=== PATIENT | male | born 1965 | race Caucasian/White ===

== ENCOUNTER 2019-12-18 13:44 | Inpatient (IN) | payer BC, SELFPAY ==
--- NOTE | ~2019-12-18 | MR_ITS ---
EXAMINATION: MR foot RT wo con DATE: 12/22/2019 15:24 INDICATION: Right foot abscess. TECHNIQUE: Magnetic resonance imaging (MRI) of the right foot was performed without intravenous contr ast. Sequences included sagittal T1-weighted FSE and STIR FSE, long-axis PD-weighted FS FSE and PD-we ighted FSE, and short-axis PD-weighted FS FSE and T1-weighted FSE. COMPARISON: Right foot MRI 11/09/2017, radiographs 12/18/2019, 12/21/2019, 11/08/2017 FINDINGS: Bone alignment is normal. No fracture. There is mild midfoot osteoarthritis. Lisfranc ligam ent is normal. There is severe fatty atrophy of much of the forefoot musculature. There is increased T2-weighted signal intensity in the forefoot musculature, consistent with subacute denervation and my ositis. There is widespread subcutaneous edema in the foot. There are surgical changes of the plantar lateral soft tissues. There is artifact from a foreign body in the great toe. IMPRESSION: 1. No evidence of osteomyelitis. 2. Surgical changes at the plantar lateral aspect of the forefoot. No specific evidence of abscess. S ensitivity is decreased by the lack of intravenous contrast. 3. Thin curvilinear foreign body in the soft tissues of the great toe, present since 11/08/2017. Reviewed, dictated and finalized at location A. IMPRESSION: 1. No evidence of osteomyelitis. 2. Surgical changes at the plantar lateral aspect of the forefoot. No specific evidence of abscess. Sensitivity is decreased by the lack of intravenous contra st. 3. Thin curvilinear foreign body in the soft tissues of the great toe, present since 11/08/2017.
--- NOTE | ~2019-12-18 | XR_ITS ---
EXAMINATION: XR fluoroscopy <1hr EXAM DATE: 12/21/2019 12:04 INDICATION: Removal of foreign body right foot. TECHNIQUE: Fluoroscopy used during XR fluoroscopy <1hr performed by Dr. Sonido Raymundo MD. The DA P for this procedure was 0.3 mGym2. Correlation made to right foot x-ray from 12/18/2019 FINDINGS: There is a single lateral fluoroscopic image available of the right forefoot likely superi mposed on the left ankle. No radiopaque foreign bodies identified. Correlate with procedure note. IMPRESSION: Fluoroscopy used during right foot foreign body removal. Reviewed, dictated and finalized at location A.
--- NOTE | ~2019-12-18 | US_ITS ---
EXAMINATION: US venous doppler [facility] DATE: 12/18/2019 14:49 INDICATION: Left lower limb pain. TECHNIQUE: Grayscale ultrasound images without and with compression and Doppler ultrasound images of the left lower extremity veins were obtained. COMPARISON: None. FINDINGS: The visualized portions of left common femoral vein, profunda (deep) femoral vein, femoral vein, popl iteal vein, peroneal veins, posterior tibial veins, and greater saphenous vein outflow are patent. IMPRESSION: 1. No deep venous thrombosis. Reviewed, dictated and finalized at location A.
--- NOTE | ~2019-12-18 | XR_ITS ---
XR foot RT min 3V 12/18/2019 14:26 Indication: Right foot pain Procedure: 4 views right foot Comparison: 11/08/2017 Findings: There is a curvilinear foreign body in the soft tissues adjacent to the fourth and fifth me tatarsal phalangeal joints. Mild osteoarthritis of the first MTP joint. Lisfranc joint intact. There are degenerative calcaneal enthesophytes. Impression: 1: Curvilinear foreign body adjacent to the fourth and fifth metatarsal phalangeal joints, new since prior examination. Reviewed, dictated and finalized at location B. Impression: 1: Curvilinear foreign body adjacent to the fourth and fifth metatarsal phalang eal joints, new since prior examination.
[2019-12-18 13:54] VITALS: BP 134/76; PULSE 87; RESP 18; TEMP 36.9; O2SAT 100
[2019-12-18 14:21] LABS: Basophils Percent Auto 0.4 % (0.2-1.2); Eosinophils Absolute Auto 0.1 K/mm3 (0-0.3); Hemoglobin 13.7 g/dL (14.0-18.0); Immature Granulocyte Absolute 0.02 K/mm3 (0.00-0.031); Immature Granulocyte Percent A 0.2 % (0-0.5); Lymphocytes Percent Auto 13.6 % (18.3-44.2); Mean Corpuscular HGB Conc 33.4 g/dl (32-36); Mean Corpuscular Hemoglobin 29.7 pg (26-34); Mean Corpuscular Volume 88.7 fl (80-100); Mean Platelet Volume 9.4 fl (7.4-10.4); Monocytes Absolute Auto 0.7 K/mm3 (0.1-0.6); Monocytes Percent Auto 8.8 % (2.6-8.5); Neutrophils Absolute Auto 6.1 K/mm3 (1.3-6.7); Platelet Count Result 203 k/mm3 (150-375); Red Blood Count 4.62 M/mm3 (4.6-6.20); Red Cell Distribution Width 12.9 % (11.5-14.5); White Blood Count 8.1 K/mm3 (4.5-10.0)
[2019-12-18 14:30] LABS: Prothrombin Time 13.1 Seconds (11.1-14.7)
[2019-12-18 14:31] LABS: Glucose Point of Care 342 (65-105)
[2019-12-18 14:31] LABS: Partial Thromboplastin Time 33.1 SECONDS (22.3-36.8)
[2019-12-18 14:33] LABS: Lactic Acid Reflex 2.1 mmol/L (0.7-2.1)
[2019-12-18 14:41] LABS: Magnesium 1.8 mg/dL (1.6-2.3)
[2019-12-18 14:43] LABS: Alanine Aminotransferase 19 U/L (4-50); Albumin Level 3.8 g/dL (3.5-5.1); Alkaline Phosphatase 123 U/L (38-126); Aspartate Amino Transferase 19 U/L (17-59); Bilirubin,Total 0.2 mg/dL (0.2-1.3); Blood Urea Nitrogen 16 mg/dL (9-20); Calcium 9.1 mg/dL (8.4-10.2); Carbon Dioxide 28 mmol/L (22-30); Chloride 95 mmol/L (98-107); Estimated CRCL calculation 126 ml/min; Estimated Glomerular Filt Rate > 60; Glucose 399 mg/dL (75-110); Potassium 4.2 mmol/L (3.4-5.0); Sodium 132 mmol/L (137-145)
[2019-12-18 14:45] LABS: Erythrocyte Sedimentation Rate 96 mm/hr (0-20)
--- NOTE | 2019-12-18 15:01 | ED.GENADULT ---
HPI - General Adult General Chief complaint: Wound/Laceration <SASHA Kunz Last Filed: 12/18/19 17:50> Stated complaint: foot ulcer <SASHA Kunz Last Filed: 12/18/19 17:50> Time Seen by Provider: 12/18/19 13:46 <SASHA Kunz Last Filed: 12/18/19 17:50> Source: patient <SASHA Kunz Last Filed: 12/18/19 17:50> Mode of arrival: ambulatory <SASHA Kunz Last Filed: 12/18/19 17:50> Limitations: no limitations <SASHA Kunz Last Filed: 12/18/19 17:50> History of Present Illness HPI narrative: patient is a 54-year-old male who presents to emergency department for evaluation of bilateral leg pain that is worsened over the last several days patient notes redness swelling and tenderness of the right forefoot laterally patient also notes he has had some splotchy irritation involving the left leg from the foot up to the level of the knee patient notes he is an insulin-dependent diabetic and is poorly controlled and was sent by primary care for further evaluation patient notes subjective fever with chills patient denies vomiting diarrhea URI symptoms or urinary symptoms patient has not taken anything for his symptoms and presents in no distress patient also notes history of tobacco abuse <SASHA Kunz Last Filed: 12/18/19 17:50> Related Data Home medications: Home Medications Medication Instructions Recorded Confirmed atorvastatin 12/18/19 citalopram mg 12/18/19 insulin lispro [Admelog SoloStar unit SUBCUT 12/18/19 U-100 Insulin] linagliptin [Tradjenta] mg 12/18/19 pen needle, diabetic [BD 12/18/19 12/18/19 Ultra-Fine Diane Pen Needle] <SASHA Kunz Last Filed: 12/18/19 17:50> Allergies/adverse reactions: Allergies Allergy/AdvReac Type Severity Reaction Status Date / Time No Known Allergies Allergy Verified 12/18/19 13:59 <SASHA Kunz Last Filed: 12/18/19 17:50> Review of Systems Review of Systems: All systems reviewed & are unremarkable except as noted in HPI and below <Ramon Hi PA-C - Last Filed: 12/18/19 17:50> FOR[facility]LY [facility] Past Medical History Medical History: Medical History (Updated 12/18/19 @ 15:45 by Ramon Hi PA-C) Diabetes mellitus <Ramon Hi PA-C - Last Filed: 12/18/19 17:50> Family History Family History: Family History (Updated 11/25/17 @ 10:00 by DOCTOR UNKNOWN) Other Diabetes mellitus Family history of malignant neoplasm <Ramon Hi PA-C - Last Filed: 12/18/19 17:50> Social History Social History: Social History (Updated 12/18/19 @ 15:04 by Ramon Hi PA-C) Smoking status: Current every day smoker Alcohol intake: current Substance use type: amphetamines Gender identity (if verbalized by the patient): Male <Ramon Hi PA-C - Last Filed: 12/18/19 17:50> Exam Narrative: Exam Narrative: GENERAL: Well-appearing, well-nourished, and in no acute distress. HEAD: Normocephalic, atraumatic. EYES: PERRLA and EOMI. ENT: Nares clear, no rhinorrhea or epistaxis. Mucous membranes moist. CHEST: Clear to auscultation. No respiratory distress. No wheezes rales or rhonchi HEART: Regular rate and rhythm. No murmur heard. Normal peripheral pulses. ABDOMEN: Soft, nontender, nondistended EXTREMITIES: Normal range of motion. No edema. Patient with redness tenderness around the forefoot of the right foot where he has erythema and what appears like a blister on the plantar surface with no ulceration. Patient with splotchy redness involving the left calf and medial aspect of the left knee SKIN: Warm, dry, no rash. NEURO: No focal deficits. Alert and oriented x3. Neurovascularly intact PSYCH: Normal mood and affect. <Ramon Hi PA-C - Last Filed: 12/18/19 17:50> Course Course Emergency Course: Patient in the room aware of case findings treatment
[2019-12-18 15:02] LABS: CRP 22.8 mg/dL (<1.0)
[2019-12-18 15:04] LABS: Add Urine Microscopic? YES; Appearance Urine Clear (Clear); Bilirubin Urine Negative (Negative); Blood Urine Negative (Negative); Color Urine Yellow (Yellow); Glucose Urine UA 3+ mg/dL (Negative); Ketones Urine Negative (Negative); Leukocyte Esterase Ur Negative LEU/UL (Negative); Nitrate Urine Negative (Negative); Protein Urine 1+ mg/dL (Negative); RBC Urine 0-2 /hpf (0-2); Specific Grav Ur 1.031 (1.001-1.035); Urobilinogen Urine Negative mg/dL (<2.0); WBC Urine 0-3 /hpf
[2019-12-18 15:08] LABS: Beta-Hydroxybutyrate/Acetoacetate 0.06 mmol/L (0.02-0.27)
[2019-12-18] MEDS: KETOROLAC 30 MG/ML VIAL (*BKC) IV PUSH (15:08)
[2019-12-18] MEDS: SODIUM CHLORIDE 0.9% IV 1,000 ML 999 ML IV CONT (15:08)
[2019-12-18] MEDS: INSULIN HUMAN REGULAR (*BKC) 100 UNITS/ML 10 UNITS IV PUSH (15:09)
[2019-12-18 15:17] LABS: Barbiturate Screen Urine Negative (Negative); Benzodiazepines Screen Urine Negative (Negative)
[2019-12-18 15:24] LABS: Cannabinoid Screen Urine Positive (Negative); Cocaine Screen Urine Negative (Negative); Methadone Screen Urine Negative (Negative); Opiate Screen Urine Negative (Negative); Phencyclidine Screen Urine Negative (Negative)
--- NOTE | 2019-12-18 15:37 | PC.NURSE ---
Patient asking for water, MD reports patient not allowed to have yet d/t FB in foot at this time
[2019-12-18 15:51] LABS: Amphetamine Screen Urine Positive (Negative)
[2019-12-18 17:18] LABS: Reflex Lactic Acid Yes or No Add Lactic
[2019-12-18 17:42] VITALS: BP 101/65; PULSE 74; RESP 20; O2SAT 100
[2019-12-18 19:07] VITALS: PULSE 89
--- NOTE | 2019-12-18 19:25 | ADMGEN ---
This patient, Bob Webster, was admitted to Medical Room 349-01. Patient/family oriented to hospital policies and general routines including ID bracelet, bed and alarms, visiting hours, pain management, procedures, bathroom and other care routines, personal items, smoking policy, room service/diet, and visiting hours. Valuables list has been completed. Information on how to activate the Rapid Response Team has been discussed. Patient/Family are encouraged to report perceived risks to care and to ask questions if they do not understand what they are told or what they should do.
--- NOTE | 2019-12-18 19:56 | PM.IMHP ---
H&P: HPI History of Present Illness Chief complaint: Foreign body right foot/cellulitis r foot/left leg Narrative: This is a 54 year old male with known peripheral neuropathy, poorly controlled diabetes mellitus and chronic diabetic foot ulcers who presented to the hospital today with a complaint of right foot redness and swelling for the past 3 days. The patient is known to have a chronic diabetic wound on the bottom of his left foot but denies any signficant wound of his right foot. He admits that he was previously walking around outside without shoes and doesn't feel his feet secondary to his peripheral neuropathy. He also has some redness of his left lower leg which he states comes and goes. He denies any fevers, chills, shortness of breath, chest pain, abdominal pain, nausea, vomting, diarrhea, dysuria, or other symptoms. He does have a follow up appointment with is podaitrist for December 22, 2019 and has not had any type of antibiotic therapy for his right foot redness/swelling over the past few days. Routine labs were obtained in the ER and were viturally unremarkalble. The patient is nontoxic appearing with normal vital signs. Doppler U/S of his Left LE was negative for an acute DVT. Foot xray obtained in the ER demonstrated a curvilinear foreign body adjacent to the fourth and fifth metatarsal phalangeal joints, new since prior examination. ER provider has consulted General Surgery, Dr. Raymundo who has agreed to see the patient for his foreign body. No other complaints. Review of Systems Review of Systems: All systems reviewed & are unremarkable except as noted in HPI and below PMFSH Past Medical History Medical History Diabetes mellitus Surgical History Surgical History Hx of colonoscopy Family History Family History Other Diabetes mellitus Family history of malignant neoplasm Social History Social History Years smoked: 42 Smoking status: Current every day smoker Tobacco type: cigarettes Alcohol intake: current Drinks per week: 3 Substance use: current Substance use type: marijuana and methamphetamine Gender identity (if verbalized by the patient): Male Sexual Orientation (if Verbalized by the Patient): Straight or Heterosexual Spiritual care concerns: No Meds Home Medications and Allergies Home Medications Medication Instructions Recorded Confirmed Type insulin glargine [Basaglar KwikPen 10 unit SUBCUT QAM 12/18/19 12/18/19 History U-100 Insulin] insulin glargine [Basaglar KwikPen 15 unit SUBCUT QPM 12/18/19 12/18/19 History U-100 Insulin] insulin lispro [Admelog SoloStar 4 unit SUBCUT AC 12/18/19 12/18/19 History U-100 Insulin] insulin lispro [Admelog SoloStar See Protocol SUBCUT ACHS 12/18/19 12/18/19 History U-100 Insulin] linagliptin [Tradjenta] 5 mg PO DAILY 12/18/19 12/18/19 History pen needle, diabetic [BD 12/18/19 12/18/19 History Ultra-Fine Diane Pen Needle] Allergies Allergy/AdvReac Type Severity Reaction Status Date / Time No Known Allergies Allergy Verified 12/18/19 20:49 Vital Signs Vital Signs - 24 hr 12/18/19 13:54 12/18/19 17:42 12/18/19 19:07 Temperature 36.9 C Pulse Rate 87 74 89 Respiratory Rate 18 20 Blood Pressure 134/76 101/65 Pulse Oximetry 100 100 Exam Const: General: cooperative, no acute distress, alert and awake Nutritional Appearance: well nourished Orientation/consciousness: patient oriented x3 HENMT: Head: normal to inspection General nose exam: Normal external nose present Face and sinus: normal facial exam Mouth: Yes Normal oral and palatal mucosa present and Yes oropharynx normal Eyes: Pupils: Equal, round and reactive pupils present EOM: EOMs intact bilaterally Neck: Neck: supple a
[2019-12-18 20:13] VITALS: BP 104/63; PULSE 77; RESP 16; TEMP 36.2; O2SAT 100
[2019-12-18 20:15] VITALS: BMI 31.3
[2019-12-18] MEDS: LACTATED RINGERS 1,000 ML 125 ML IV CONT (20:45)
[2019-12-18] MEDS: FAMOTIDINE 20 MG/2 ML VIAL IV PUSH (20:46)
[2019-12-18] MEDS: NICOTINE (*PBKC) 14 MG PATCH 1 PATCH TRANSDERM (20:46)
[2019-12-18 22:07] LABS: Glucose Point of Care 218 (65-105)
[2019-12-19 04:42] VITALS: BP 126/65; PULSE 79; RESP 14; TEMP 36.6; O2SAT 99
[2019-12-19] MEDS: LACTATED RINGERS 1,000 ML 125 ML IV CONT (04:42)
[2019-12-19 06:06] LABS: Basophils Percent Auto 0.4 % (0.2-1.2); Eosinophils Absolute Auto 0.1 K/mm3 (0-0.3); Eosinophils Percent Auto 1.8 % (0-4.4); Hemoglobin 13.5 g/dL (14.0-18.0); Immature Granulocyte Absolute 0.04 K/mm3 (0.00-0.031); Immature Granulocyte Percent A 0.5 % (0-0.5); Lymphocytes Absolute Auto 1.53 K/mm3 (0.9-3.2); Lymphocytes Percent Auto 19.4 % (18.3-44.2); Mean Corpuscular HGB Conc 33.8 g/dl (32-36); Mean Corpuscular Hemoglobin 29.9 pg (26-34); Mean Corpuscular Volume 88.7 fl (80-100); Monocytes Absolute Auto 0.6 K/mm3 (0.1-0.6); Monocytes Percent Auto 8.1 % (2.6-8.5); Neutrophils Absolute Auto 5.5 K/mm3 (1.3-6.7); Neutrophils Percent Auto 69.8 % (45.5-73.1); Platelet Count Result 193 k/mm3 (150-375); Red Blood Count 4.51 M/mm3 (4.6-6.20); Red Cell Distribution Width 12.7 % (11.5-14.5); White Blood Count 7.9 K/mm3 (4.5-10.0)
[2019-12-19 06:26] LABS: Blood Urea Nitrogen 17 mg/dL (9-20); Calcium 8.9 mg/dL (8.4-10.2); Carbon Dioxide 28 mmol/L (22-30); Chloride 99 mmol/L (98-107); Estimated CRCL calculation 124 ml/min; Estimated Glomerular Filt Rate > 60; Glucose 218 mg/dL (75-110); Potassium 4.1 mmol/L (3.4-5.0); Sodium 133 mmol/L (137-145)
[2019-12-19 08:06] LABS: Glucose Point of Care 200 (65-105)
[2019-12-19] MEDS: ENOXAPARIN 40 MG/0.4 ML SYRINGE SUB-Q (09:30)
[2019-12-19] MEDS: FAMOTIDINE 20 MG/2 ML VIAL IV PUSH ×2 (09:30→21:14)
[2019-12-19] MEDS: INSULIN GLARGINE (*BKC) 100 UNITS/ML 10 UNITS SUB-Q (09:31)
[2019-12-19] MEDS: NICOTINE (*PBKC) 14 MG PATCH 1 PATCH TRANSDERM (09:31)
--- NOTE | 2019-12-19 09:40 | PM.CNGS ---
Assessment and Plan Assessment and plan (1) Diabetic infection of right foot: Code(s): E11.628 - Type 2 diabetes mellitus with other skin complications; L08.9 - Local infection of the skin and subcutaneous tissue, unspecified Status: Acute Assessment and Plan: infection improving with antibiotics. Continue present care. (2) Foreign body in foot: Qualifiers: Encounter type: initial encounter Laterality: right Qualified Code(s): S90.851A - Superficial foreign body, right foot, initial encounter Code(s): S90.859A - Superficial foreign body, unspecified foot, initial encounter Status: Acute Assessment and Plan: Will take patient to surgery Saturday or Saturday to remove foreign body under fluoroscopy. If ready to be discharged before that, he can be brought back as an outpatient for the procedure. (3) Poorly controlled diabetes mellitus: Code(s): E11.65 - Type 2 diabetes mellitus with hyperglycemia Status: Chronic (4) Tobacco dependence: Code(s): F17.200 - Nicotine dependence, unspecified, uncomplicated Status: Chronic (5) Amphetamine abuse: Code(s): F15.10 - Other stimulant abuse, uncomplicated Status: Chronic History of Present Illness Consult details Consult date: 12/19/19 Reason for consult: other ( Diabetic foot infection with foreign body) Narrative: patient is a 54-year-old man who is diabetic with peripheral neuropathy. He started noticing swelling in the distal right foot particularly laterally. This started about 4 days ago. He has not had any fever or chills. He came to the emergency room. Plain film showed a curvilinear foreign body between the 4th and 5th metatarsal joints. There was no sign of osteomyelitis. He was admitted and started on IV antibiotics. His foot seems to be less swollen to him today. He feels better as well. He is seen now in consultation. Review of Systems Review of Systems: All systems reviewed & are unremarkable except as noted in HPI and below Constitutional: Constitutional: Denies headache(s) Cardiovascular: Cardiovascular: Denies chest pain and Denies dyspnea Respiratory: Respiratory: Denies cough and Denies dyspnea Gastrointestinal: Gastrointestinal: Reports as per HPI Neurologic: Denies confusion and Denies headache(s) [facility] Past Medical History Medical History Diabetes mellitus Surgical History Surgical History Hx of colonoscopy Family History Family History Other Diabetes mellitus Family history of malignant neoplasm Social History Social History Years smoked: 42 Smoking status: Current every day smoker Tobacco type: cigarettes Alcohol intake: current Drinks per week: 3 Substance use: current Substance use type: marijuana and methamphetamine Gender identity (if verbalized by the patient): Male Sexual Orientation (if Verbalized by the Patient): Straight or Heterosexual Spiritual care concerns: No Meds Home Medications and Allergies Home Medications Medication Instructions Recorded Confirmed Type insulin glargine [Basaglar KwikPen 10 unit SUBCUT QAM 12/18/19 12/18/19 History U-100 Insulin] insulin glargine [Basaglar KwikPen 15 unit SUBCUT QPM 12/18/19 12/18/19 History U-100 Insulin] insulin lispro [Admelog SoloStar 4 unit SUBCUT AC 12/18/19 12/18/19 History U-100 Insulin] insulin lispro [Admelog SoloStar See Protocol SUBCUT ACHS 12/18/19 12/18/19 History U-100 Insulin] linagliptin [Tradjenta] 5 mg PO DAILY 12/18/19 12/18/19 History pen needle, diabetic [BD 12/18/19 12/18/19 History Ultra-Fine Diane Pen Needle] Allergies Allergy/AdvReac Type Severity Reaction Status Date / Time No Known Allergies Allergy
[2019-12-19] MEDS: INSULIN ASPART (*BKC) 100 UNITS/ML SUB-Q ×3 (11:31→16:49)
[2019-12-19 11:40] LABS: Glucose Point of Care 227 (65-105)
--- NOTE | 2019-12-19 12:59 | PM.IMPN ---
Progress Note: A&P Assessment and Plan (1) Cellulitis of foot, right: Code(s): L03.115 - Cellulitis of right lower limb Status: Acute Assessment and Plan: Admit for observation. Continue IV antibiotics. Blood cultures pending. (2) Foreign body in foot: Qualifiers: Encounter type: initial encounter Laterality: right Qualified Code(s): S90.851A - Superficial foreign body, right foot, initial encounter Code(s): S90.859A - Superficial foreign body, unspecified foot, initial encounter Status: Acute Assessment and Plan: General surgery has seen and plans to take to the OR early next week (3) Diabetic ulcer of left foot: Qualifiers: Diabetic foot ulcer location: midfoot Diabetes mellitus type: type 2 Non-pressure ulcer stage: limited to breakdown of skin Qualified Code(s): E11.621 - Type 2 diabetes mellitus with foot ulcer; L97.421 - Non-pressure chronic ulcer of left heel and midfoot limited to breakdown of skin Code(s): E11.621 - Type 2 diabetes mellitus with foot ulcer; L97.529 - Non-pressure chronic ulcer of other part of left foot with unspecified severity Status: Chronic Assessment and Plan: Continue local wound care. Left foot is essentially all healed (4) Poorly controlled diabetes mellitus: Code(s): E11.65 - Type 2 diabetes mellitus with hyperglycemia Status: Chronic Assessment and Plan: Accuchecks, with sliding scale. Check HgbA1c. Increase Lantus if needed or a.c. insulin (5) Amphetamine abuse: Code(s): F15.10 - Other stimulant abuse, uncomplicated Status: Chronic (6) Tobacco dependence: Code(s): F17.200 - Nicotine dependence, unspecified, uncomplicated Status: Chronic Assessment and Plan: I counseled the patient regarding tobacco cessation for 4 minutes. He does desire a nicotine patch. Subjective Date/time seen: 12/19/19 12:59 Interval history: Date of visit 12/18. 54-year-old type 2 diabetic on insulin with severe peripheral neuropathy admitted with swollen right foot. Found to have infection and foreign body between 4th and 5th metatarsal on x-ray. After 12 hours of antibiotics and the swelling is already better. No fever no chills Exam Narrative: Exam Narrative: Blood pressure 126/64 pulse is 78 afebrile Pupils equal reactive to light sclera anicteric Lungs clear CV regular rate rhythm Abdomen soft nontender no masses Extremities without distal pulses 2+, left foot there is a healed scar on the plantar surface just the 4th and 5th MTP. Right foot is slightly swollen with no entrance wounds or abrasions or open lesions. Nontender with the neuropathy. Objective Data Vital Signs Vital Signs: Vital Signs - 24 hr 12/18/19 13:54 12/18/19 17:42 12/18/19 19:07 Temperature 36.9 C Pulse Rate 87 74 89 Respiratory Rate 18 20 Blood Pressure 134/76 101/65 Pulse Oximetry 100 100 12/18/19 20:13 12/19/19 04:42 Temperature 36.2 C L 36.6 C Pulse Rate 77 79 Respiratory Rate 16 14 Blood Pressure 104/63 126/65 Pulse Oximetry 100 99 Intake/Output Intake/Output: Intake & Output 12/16/19 12/17/19 12/18/19 12/19/19 23:59 23:59 23:59 23:59 Intake Total 1300 2030 Output Total 1275 Balance 1300 755 Meds/Results Medications: Active Medications Generic Name Dose Route Start Last Admin Trade Name Freq PRN Reason Stop Dose Admin Enoxaparin Sodium 40 mg 12/19/19 09:00 12/19/19 09:30 Lovenox SUB-Q 40 mg DAILY LINO Administration Famotidine 20 mg 12/18/19 21:00 12/19/19 09:30 Pepcid Iv IV PUSH 20 mg Q12HR LINO Administration Imipenem/Cilastatin Sodium 500 mg in 100 mls @ 300 mls/hr 12/18/19 22:00 12/19/19 09:47 Primaxin 500 Mg/D5w 100 Ml IVPB Infused Q6H LINO Infusion Acetaminophen 1,000 mg in 100 mls @ 400 mls/hr 12/18/19 17:51 12/19/19 11:31 Ofirmev 1,000 Mg Ivpb IVPB 12/19/19 17:52 400 mls/hr Q6H PRN Administra
[2019-12-19 14:00] VITALS: BP 128/66; PULSE 71; RESP 20; TEMP 37.2; O2SAT 98
[2019-12-19 16:26] LABS: Glucose Point of Care 204 (65-105)
[2019-12-19] MEDS: INSULIN GLARGINE (*BKC) 100 UNITS/ML 15 UNITS SUB-Q (18:22)
[2019-12-19 18:27] LABS: Glucose Point of Care 209 (65-105)
[2019-12-19 21:16] VITALS: BP 135/78; PULSE 84; RESP 14; TEMP 37.1; O2SAT 97
[2019-12-19 21:43] LABS: Glucose Point of Care 215 (65-105)
[2019-12-20 05:06] VITALS: BP 149/78; PULSE 80; RESP 14; TEMP 37; O2SAT 100
[2019-12-20 07:55] LABS: Glucose Point of Care 235 (65-105)
[2019-12-20] MEDS: INSULIN GLARGINE (*BKC) 100 UNITS/ML 10 UNITS SUB-Q (08:23)
[2019-12-20] MEDS: NICOTINE (*PBKC) 14 MG PATCH 1 PATCH TRANSDERM (08:23)
[2019-12-20] MEDS: FAMOTIDINE 20 MG/2 ML VIAL IV PUSH ×2 (08:23→20:59)
[2019-12-20] MEDS: INSULIN ASPART (*BKC) 100 UNITS/ML SUB-Q ×5 (08:24→17:05)
[2019-12-20 11:25] LABS: Glucose Point of Care 176 (65-105)
[2019-12-20 14:00] VITALS: BP 140/72; PULSE 75; RESP 20; TEMP 36.8; O2SAT 100
--- NOTE | 2019-12-20 15:46 | PM.IMPN ---
Progress Note: A&P Assessment and Plan (1) Cellulitis of foot, right: Code(s): L03.115 - Cellulitis of right lower limb Status: Acute Assessment and Plan: Continue IV antibiotics. Blood cultures negative. (2) Foreign body in foot: Qualifiers: Encounter type: initial encounter Laterality: right Qualified Code(s): S90.851A - Superficial foreign body, right foot, initial encounter Code(s): S90.859A - Superficial foreign body, unspecified foot, initial encounter Status: Acute Assessment and Plan: General surgery has seen and plans to take to the OR early next week (3) Diabetic ulcer of left foot: Qualifiers: Diabetic foot ulcer location: midfoot Diabetes mellitus type: type 2 Non-pressure ulcer stage: limited to breakdown of skin Qualified Code(s): E11.621 - Type 2 diabetes mellitus with foot ulcer; L97.421 - Non-pressure chronic ulcer of left heel and midfoot limited to breakdown of skin Code(s): E11.621 - Type 2 diabetes mellitus with foot ulcer; L97.529 - Non-pressure chronic ulcer of other part of left foot with unspecified severity Status: Chronic Assessment and Plan: Continue local wound care. Left foot is essentially all healed (4) Poorly controlled diabetes mellitus: Code(s): E11.65 - Type 2 diabetes mellitus with hyperglycemia Status: Chronic Assessment and Plan: Accuchecks, with sliding scale. Check HgbA1c. Increase Lantus if needed and scheduled a.c. insulin 4U with SS (5) Amphetamine abuse: Code(s): F15.10 - Other stimulant abuse, uncomplicated Status: Chronic Assessment and Plan: counciled on admission (6) Tobacco dependence: Code(s): F17.200 - Nicotine dependence, unspecified, uncomplicated Status: Chronic Assessment and Plan: Dr Pinedo counseled the patient regarding tobacco cessation for 4 minutes. He does desire a nicotine patch. Subjective Date/time seen: 12/20/19 15:46 Interval history: Date of visit 12/19. 54-year-old type 2 diabetic on insulin with severe peripheral neuropathy admitted with swollen right foot. Found to have infection and foreign body between 4th and 5th metatarsal on x-ray. After antibiotics and the swelling is better. No fever no chills no pain with neuropathy Exam Narrative: Exam Narrative: Blood pressure 146/78 pulse is 80 afebrile Pupils equal reactive to light sclera anicteric Lungs clear CV regular rate rhythm Abdomen soft nontender no masses Extremities without distal pulses 2+, left foot there is a healed scar on the plantar surface just the 4th and 5th MTP. Right foot is slightly swollen with no entrance wounds or abrasions or open lesions. Nontender with the neuropathy Somewhat fluculant on the plantar surface twin 4th and 5th metatarsal. Objective Data Vital Signs Vital Signs: Vital Signs - 24 hr 12/19/19 21:16 12/20/19 05:06 Temperature 37.1 C 37.0 C Pulse Rate 84 80 Respiratory Rate 14 14 Blood Pressure 135/78 149/78 H Pulse Oximetry 97 100 Intake/Output Intake/Output: Intake & Output 12/17/19 12/18/19 12/19/19 12/20/19 23:59 23:59 23:59 23:59 Intake Total 1300 4225 1080 Output Total 2975 Balance 1300 1250 1080 Meds/Results Medications: Active Medications Generic Name Dose Route Start Last Admin Trade Name Freq PRN Reason Stop Dose Admin Dextrose 12.5 gm 12/19/19 13:13 Dextrose 50% Syringe IV PUSH PRN PRN Hypoglycemia Protocol Enoxaparin Sodium 40 mg 12/19/19 09:00 12/20/19 08:21 Lovenox SUB-Q Not Given DAILY LINO Famotidine 20 mg 12/18/19 21:00 12/20/19 08:23 Pepcid Iv IV PUSH 20 mg Q12HR LINO Administration Glucagon 1 mg 12/19/19 13:13 Glucagon For Inj IM PRN PRN Hypoglycemia Protocol Glucose 15 gm 12/19/19 13:13 Glutose 15 PO PRN PRN Hypoglycemia Protocol Imipenem/Cilastatin Sodium 500 mg in 100 m
--- NOTE | 2019-12-20 15:47 | P.PNAN_ITS ---
Anes - Eval Pre Procedure Procedure: Removal of foreign body right foot Date/Time: 12/20/19 15:47 Surgeon: Sonido Raymundo M.D. Pre Op Diagnosis: Foreign body right foot/cellulitis r foot/left leg Patient Data Age: 54 Gender: M Height: 1.88 m Weight: 110.6 kg Last Vital Signs Temp 37.0 C 12/20/19 05:06 Pulse 80 12/20/19 05:06 Resp 14 12/20/19 05:06 BP 149/78 H 12/20/19 05:06 Pulse Ox 100 12/20/19 05:06 Allergies Allergy/AdvReac Type Severity Reaction Status Date / Time No Known Allergies Allergy Verified 12/18/19 20:49 Home Medications Medication Instructions Recorded Confirmed Type insulin glargine [Basaglar KwikPen 10 unit SUBCUT QAM 12/18/19 12/18/19 History U-100 Insulin] insulin glargine [Basaglar KwikPen 15 unit SUBCUT QPM 12/18/19 12/18/19 History U-100 Insulin] insulin lispro [Admelog SoloStar 4 unit SUBCUT AC 12/18/19 12/18/19 History U-100 Insulin] insulin lispro [Admelog SoloStar See Protocol SUBCUT ACHS 12/18/19 12/18/19 History U-100 Insulin] linagliptin [Tradjenta] 5 mg PO DAILY 12/18/19 12/18/19 History pen needle, diabetic [BD 12/18/19 12/18/19 History Ultra-Fine Diane Pen Needle] Laboratory Tests 12/19/19 12/19/19 12/19/19 16:22 18:21 21:15 POC Capillary Glucose 204 mg/dl H mg/dl 209 mg/dl H mg/dl 215 mg/dl H mg/dl (65-105) (65-105) (65-105) 12/20/19 12/20/19 07:48 11:23 POC Capillary Glucose 235 mg/dl H mg/dl 176 mg/dl H mg/dl (65-105) (65-105) Patient hx anesthesia problems: none Family hx anesthesia problems: none PMFSH Past Medical History Medical History (Updated 12/20/19 @ 15:51 by Jen Borges, NUCLEAR MEDICINE MEDICAL DIRECTOR) Amphetamine abuse Cellulitis of foot, right Diabetes mellitus Diabetic infection of right foot Diabetic ulcer of left foot Peripheral neuropathy Tobacco dependence Surgical History Surgical History Hx of colonoscopy Family History Family History Other Diabetes mellitus Family history of malignant neoplasm Social History Social History Years smoked: 42 Smoking status: Current every day smoker Tobacco type: cigarettes Alcohol intake: current Drinks per week: 3 Substance use: current Substance use type: marijuana and methamphetamine Gender identity (if verbalized by the patient): Male Sexual Orientation (if Verbalized by the Patient): Straight or Heterosexual Spiritual care concerns: No Exam Day of Procedure 12/20/19 15:47
[2019-12-20 16:33] LABS: Glucose Point of Care 240 (65-105)
[2019-12-20] MEDS: INSULIN GLARGINE (*BKC) 100 UNITS/ML 15 UNITS SUB-Q (17:06)
[2019-12-20 20:11] VITALS: BP 132/78; PULSE 93; RESP 14; TEMP 36.9; O2SAT 100
[2019-12-20 20:36] LABS: Glucose Point of Care 284 (65-105)
[2019-12-21] VITALS (7 sets, daily range): BP systolic 104–122; BP diastolic 62–83; PULSE 75–84; RESP 12–18; TEMP 36.2–37.4; O2SAT 96–100
[2019-12-21 05:51] LABS: Basophils Percent Auto 0.5 % (0.2-1.2); Eosinophils Absolute Auto 0.1 K/mm3 (0-0.3); Eosinophils Percent Auto 1.4 % (0-4.4); Hematocrit 42.6 % (42.0-52.0); Hemoglobin 14.4 g/dL (14.0-18.0); Immature Granulocyte Absolute 0.06 K/mm3 (0.00-0.031); Immature Granulocyte Percent A 0.7 % (0-0.5); Mean Corpuscular HGB Conc 33.8 g/dl (32-36); Mean Corpuscular Hemoglobin 29.7 pg (26-34); Mean Corpuscular Volume 87.8 fl (80-100); Mean Platelet Volume 8.7 fl (7.4-10.4); Monocytes Absolute Auto 0.8 K/mm3 (0.1-0.6); Neutrophils Absolute Auto 5.8 K/mm3 (1.3-6.7); Neutrophils Percent Auto 67.4 % (45.5-73.1); Platelet Count Result 252 k/mm3 (150-375); Red Blood Count 4.85 M/mm3 (4.6-6.20); Red Cell Distribution Width 12.4 % (11.5-14.5); White Blood Count 8.6 K/mm3 (4.5-10.0)
[2019-12-21 06:18] LABS: Blood Urea Nitrogen 15 mg/dL (9-20); Calcium 9.2 mg/dL (8.4-10.2); Carbon Dioxide 32 mmol/L (22-30); Chloride 96 mmol/L (98-107); Estimated CRCL calculation 124 ml/min; Estimated Glomerular Filt Rate > 60; Glucose 198 mg/dL (75-110); Potassium 4.3 mmol/L (3.4-5.0); Sodium 135 mmol/L (137-145)
[2019-12-21 07:01] LABS: Hemoglobin A1C 9.6 % (<5.7)
--- NOTE | 2019-12-21 08:29 | WPDANESEPPF ---
Anes - Initial Pre Proc Eval Procedure: Operation Date: 12/21/19 11:00 Proposed Procedures p REMOVAL RIGHT FOOT FORIEGN BODY UNDER FLOUROSCOPY - Sonido Raymundo MD Date/Time: 12/21/19 08:29 Pre Op Diagnosis: Foreign body right foot/cellulitis r foot/left leg Patient Data Age: 54 Gender: M Height: 1.88 m Weight: 110.6 kg Last Vital Signs Temp 36.5 C 12/21/19 04:21 Pulse 84 12/21/19 04:21 Resp 16 12/21/19 04:21 BP 122/83 12/21/19 04:21 Pulse Ox 100 12/21/19 04:21 Allergies Allergy/AdvReac Type Severity Reaction Status Date / Time No Known Allergies Allergy Verified 12/18/19 20:49 Home Medications Medication Instructions Recorded Confirmed Type insulin glargine [Basaglar KwikPen 10 unit SUBCUT QAM 12/18/19 12/18/19 History U-100 Insulin] insulin glargine [Basaglar KwikPen 15 unit SUBCUT QPM 12/18/19 12/18/19 History U-100 Insulin] insulin lispro [Admelog SoloStar 4 unit SUBCUT AC 12/18/19 12/18/19 History U-100 Insulin] insulin lispro [Admelog SoloStar See Protocol SUBCUT ACHS 12/18/19 12/18/19 History U-100 Insulin] linagliptin [Tradjenta] 5 mg PO DAILY 12/18/19 12/18/19 History pen needle, diabetic [BD 12/18/19 12/18/19 History Ultra-Fine Diane Pen Needle] Laboratory Tests 12/20/19 12/20/19 12/20/19 11:23 16:30 20:01 WBC RBC Hgb Hct MCV MCH MCHC RDW Plt Count MPV Immature Gran % (Auto) Neut % (Auto) Lymph % (Auto) [place] % (Auto) Eos % (Auto) Baso % (Auto) Lymph # (Auto) [place] # (Auto) Eos # (Auto) Baso # (Auto) Abs Immat Gran (auto) Absolute Neuts (auto) Absolute Nucleated RBC Nucleated RBC % Sodium Potassium Chloride Carbon Dioxide BUN Creatinine Estim Creat Clear Calc Estimated GFR Glucose POC Capillary Glucose 176 mg/dl H mg/dl 240 mg/dl H mg/dl 284 mg/dl H mg/dl (65-105) (65-105) (65-105) Hemoglobin A1c Calcium 12/21/19 12/21/19 12/21/19 05:14 05:14 05:14 WBC 8.6 K/mm3 K/mm3 (4.5-10.0) RBC 4.85 M/mm3 M/mm3 (4.6-6.20) Hgb 14.4 g/dL g/dL (14.0-18.0) Hct 42.6 % % (42.0-52.0) MCV 87.8 fl fl (80-100) MCH 29.7 pg pg (26-34) MCHC 33.8 g/dl g/dl (32-36) RDW 12.4 % % (11.5-14.5) Plt Count 252 k/mm3 k/mm3 (150-375) MPV 8.7 fl fl (7.4-10.4) Immature Gran % (Auto) 0.7 % H % (0-0.5) Neut % (Auto) 67.4 % % (45.5-73.1) Lymph % (Auto) 21.0 % % (18.3-44.2) [place] % (Auto) 9.0 % H % (2.6-8.5) Eos % (Auto) 1.4 % % (0-4.4) Baso % (Auto) 0.5 % % (0.2-1.2) Lymph # (Auto) 1.80 K/mm3 K/mm3 (0.9-3.2) [place] # (Auto) 0.8 K/mm3 H K/mm3 (0.1-0.6) Eos # (Auto) 0.1 K/mm3 K/mm3 (0-0.3) Baso # (Auto) 0.0 K/mm3 K/mm3 (0.0-0.1) Abs Immat Gran (auto) 0.06 K/mm3 H K/mm3 (0.00-0.031) Absolute Neuts (auto) 5.8 K/mm3 K/mm3 (1.3-6.7) Absolute Nucleated RBC 0.0 K/mm3 K/mm3 (0.0-0.012) Nucleated RBC % 0.0 % % (0.0-0.2) Sodium 135 mmol/L L mmol/L (137-145) Potassium 4.3 mmol/L mmol/L (3.4-5.0) Chloride 96 mmol/L L mmol/L (98-107) Carbon Dioxide 32 mmol/L H mmol/L (22-30) BUN 15 mg/dL mg/dL (9-20) Creatinine 0.80 mg/dL mg/dL (0.7-1.3) Estim Creat Clear Calc 124 ml/min ml/min Estimated GFR > 60 (59 - ) Glucose 198 mg/dL H mg/dL (75-110) POC Capillary Glucose He
[2019-12-21] MEDS: FAMOTIDINE 20 MG/2 ML VIAL IV PUSH (08:36)
[2019-12-21] MEDS: NICOTINE (*PBKC) 14 MG PATCH 1 PATCH TRANSDERM (08:39)
[2019-12-21] MEDS: INSULIN GLARGINE (*BKC) 100 UNITS/ML 10 UNITS SUB-Q (08:40)
--- NOTE | 2019-12-21 09:30 | PCWOUND ---
WOCN NOTE received referral to see patient for foot wound. General surgeon has seen patient and is following. wound care not needed at this time.
[2019-12-21] MEDS: LACTATED RINGERS 1,000 ML 30 ML IV CONT (09:46)
[2019-12-21 09:49] LABS: Glucose Point of Care 180 (65-105)
[2019-12-21 10:07] LABS: Glucose Point of Care 166 (65-105)
--- NOTE | 2019-12-21 11:59 | P.OP_ITS ---
Procedure Note - Detailed Date of procedure: 12/21/19 Pre-op diagnosis: Foreign body right foot/cellulitis r foot/left leg Diabetic foot infection right foot with foreign body Post-op diagnosis: other (Diabetic foot infection with foreign body and deep plantar abscess) Procedure performed: Excisional debridement skin subcutaneous and muscle 4 sq cm plantar surface right foot, removal foreign body under fluoroscopy Description of procedure: The patient was taken to surgery and induced into general anesthesia. He was placed in left lateral position with the right foot elevated such that the 4th and 5th metatarsal on the plantar surface was exposed. Prep and drape was carried out. Fluoroscopy was used from both a lateral view and an oblique view. The area judged to have the foreign body was marked with an X on the plantar surface of the right foot. There was an obvious abscess. I opened the abscess which was directly under a large callus of skin. Cultures were taken. I went ahead and excise this plantar callus. Underlying this was some necrotic tissue that was skin subcutaneous and muscle. I again used fluoroscopy and located the general area where the foreign body was located. I found a deeper pocket that went between the 4th and 5th metatarsal bones and drained that as well. I excised the overlying skin and subcutaneous over a 2 x 2 cm area. Cautery was used for hemostasis. Necrotic tissue was excised as well. Eventually I was able to remove the foreign body. It was sent to pathology as gross only foreign body. I then used the cautery to again achieve hemostasis. I used gentle pressure as well. I saw no additional pockets or purulent collections. The deeper abscess was packed with 1/2 inch iodoform Nu Gauze. The wound was dressed with fluffs Kerlix roll and 4 in Joel wrap. The patient was placed in a supine position, awakened and extubated. He was taken to recovery in good condition. Anesthesia: GETA Surgeon: Sonido Raymundo MD Sales Assistant Institutional Sales: [place] [employer] Estimated blood loss (mL): 10 Drains: No Packing: Yes (1/2 inch iodoform Nu Gauze) Pathology: yes (Cultures and gross only right foot foreign body) Complications: None Condition: stable Disposition: PACU Findings: Deep plantar abscess with necrotic skin subcutaneous and muscle requiring excisional debridement. Curvilinear foreign body suggestive of a needle or wire. Location is 4th and 5th metatarsal, between the 2.
[2019-12-21] MEDS: INSULIN ASPART (*BKC) 100 UNITS/ML SUB-Q (13:31)
[2019-12-21 14:47] LABS: Glucose Point of Care 197 (65-105)
--- NOTE | 2019-12-21 16:37 | PM.IMPN ---
Progress Note: A&P Assessment and Plan (1) Cellulitis of foot, right: Code(s): L03.115 - Cellulitis of right lower limb Status: Acute Assessment and Plan: Continue IV antibiotics. Blood cultures negative. (2) Foreign body in foot: Qualifiers: Encounter type: initial encounter Laterality: right Qualified Code(s): S90.851A - Superficial foreign body, right foot, initial encounter Code(s): S90.859A - Superficial foreign body, unspecified foot, initial encounter Status: Acute Assessment and Plan: General surgery has seen and to to OR today. Deep abscesses were found with necrotic tissue and for body was removed Continue broad-spectrum antibiotics and await cultures Will get ID opinion about length of need of antibiotics and consider MR to evaluate for possible osteo (3) Diabetic ulcer of left foot: Qualifiers: Diabetic foot ulcer location: midfoot Diabetes mellitus type: type 2 Non-pressure ulcer stage: limited to breakdown of skin Qualified Code(s): E11.621 - Type 2 diabetes mellitus with foot ulcer; L97.421 - Non-pressure chronic ulcer of left heel and midfoot limited to breakdown of skin Code(s): E11.621 - Type 2 diabetes mellitus with foot ulcer; L97.529 - Non-pressure chronic ulcer of other part of left foot with unspecified severity Status: Chronic Assessment and Plan: Continue local wound care. Left foot is essentially all healed (4) Poorly controlled diabetes mellitus: Code(s): E11.65 - Type 2 diabetes mellitus with hyperglycemia Status: Chronic Assessment and Plan: Accuchecks, with sliding scale. HgbA1c 9.6. Increase Lantus and scheduled a.c. insulin 5U with SS (5) Amphetamine abuse: Code(s): F15.10 - Other stimulant abuse, uncomplicated Status: Chronic Assessment and Plan: counciled on admission (6) Tobacco dependence: Code(s): F17.200 - Nicotine dependence, unspecified, uncomplicated Status: Chronic Assessment and Plan: Dr Pinedo counseled the patient regarding tobacco cessation for 4 minutes. He does desire a nicotine patch. Subjective Date/time seen: 12/21/19 16:37 Interval history: Date of visit 12/20. 54-year-old type 2 diabetic on insulin with severe peripheral neuropathy admitted with swollen right foot. Found to have infection and foreign body between 4th and 5th metatarsal on x-ray. After antibiotics and the swelling is better. No fever no chills no pain with neuropathy. To OR today for I and D and removal foreign body Exam Narrative: Exam Narrative: Blood pressure 120/80 pulse is 74 afebrile Pupils equal reactive to light sclera anicteric Lungs clear CV regular rate rhythm Abdomen soft nontender no masses Extremities distal pulses 2+, left foot there is a healed scar on the plantar surface just the 4th and 5th MTP. Right foot is slightly swollen with no entrance wounds or abrasions or open lesions. Nontender with the neuropathy fluctuant on the plantar surface between 4th and 5th metatarsal. Objective Data Vital Signs Vital Signs: Vital Signs - 24 hr 12/20/19 20:11 12/21/19 04:21 12/21/19 09:46 Temperature 36.9 C 36.5 C 37.1 C Pulse Rate 93 84 75 Respiratory Rate 14 16 18 Blood Pressure 132/78 122/83 121/80 Pulse Oximetry 100 100 100 12/21/19 11:56 12/21/19 12:10 12/21/19 12:25 Temperature 37.4 C Pulse Rate 76 84 76 Respiratory Rate 13 16 12 Blood Pressure 104/67 105/73 113/73 Pulse Oximetry 100 100 99 12/21/19 13:25 Temperature 36.2 C L Pulse Rate 76 Respiratory Rate 18 Blood Pressure 105/62 Pulse Oximetry 98 Intake/Output Intake/Output: Intake & Output 12/18/19 12/19/19 12/20/19 12/21/19 23:59 23:59 23:59 23:59 Intake Total 1300 4225 2270 740 Output Total 2975 1600 Balance 1300 1250 670 740 Meds/Results Medications: Active Medications Generic Name Dose Route Start Last Admin Trade Name Freq PRN Reason St
[2019-12-21] MEDS: INSULIN GLARGINE (*BKC) 100 UNITS/ML 20 UNITS SUB-Q (18:02)
[2019-12-21] MEDS: INSULIN ASPART (*BKC) 100 UNITS/ML 20 UNITS SUB-Q (18:03)
[2019-12-21 18:12] LABS: Glucose Point of Care 408 (65-105)
[2019-12-21] MEDS: FAMOTIDINE 20 MG TABLET PO (21:02)
[2019-12-21 21:08] LABS: Glucose Point of Care 193 (65-105)
[2019-12-22 04:22] LABS: Glucose Point of Care 255 (65-105)
[2019-12-22 04:57] VITALS: BP 113/65; PULSE 66; RESP 14; TEMP 36.4; O2SAT 100
[2019-12-22 05:26] LABS: Hematocrit 42.8 % (42.0-52.0); Hemoglobin 14.4 g/dL (14.0-18.0); Mean Corpuscular HGB Conc 33.6 g/dl (32-36); Mean Corpuscular Hemoglobin 29.6 pg (26-34); Mean Corpuscular Volume 88.1 fl (80-100); Mean Platelet Volume 8.9 fl (7.4-10.4); Platelet Count Result 270 k/mm3 (150-375); Red Blood Count 4.86 M/mm3 (4.6-6.20); Red Cell Distribution Width 12.4 % (11.5-14.5); White Blood Count 10.3 K/mm3 (4.5-10.0)
[2019-12-22 05:42] LABS: Blood Urea Nitrogen 20 mg/dL (9-20); Calcium 9.3 mg/dL (8.4-10.2); Carbon Dioxide 31 mmol/L (22-30); Chloride 98 mmol/L (98-107); Estimated CRCL calculation 124 ml/min; Estimated Glomerular Filt Rate > 60; Glucose 259 mg/dL (75-110); Potassium 4.4 mmol/L (3.4-5.0); Sodium 134 mmol/L (137-145)
[2019-12-22 07:59] LABS: Glucose Point of Care 239 (65-105)
[2019-12-22] MEDS: FAMOTIDINE 20 MG TABLET PO ×2 (09:08→21:11)
[2019-12-22] MEDS: NICOTINE (*PBKC) 14 MG PATCH 1 PATCH TRANSDERM (09:10)
[2019-12-22] MEDS: INSULIN GLARGINE (*BKC) 100 UNITS/ML 10 UNITS SUB-Q (09:12)
[2019-12-22] MEDS: INSULIN ASPART (*BKC) 100 UNITS/ML SUB-Q ×5 (09:12→17:34)
--- NOTE | 2019-12-22 11:16 | PM.PNGS ---
Progress Note: A&P Assessment and Plan (1) Abscess of foot without toes, right: Code(s): L02.611 - Cutaneous abscess of right foot Status: Acute Assessment and Plan: necrotic tissue debrided and deep abscess of the right foot his drained. Wound today looks clean. Will ask wound nurses to see regarding dressing change care. (2) Diabetic infection of right foot: Code(s): E11.628 - Type 2 diabetes mellitus with other skin complications; L08.9 - Local infection of the skin and subcutaneous tissue, unspecified Status: Acute Assessment and Plan: Continue IV antibiotics, pending culture results from procedure yesterday. (3) Foreign body in foot: Qualifiers: Encounter type: initial encounter Laterality: right Qualified Code(s): S90.851A - Superficial foreign body, right foot, initial encounter Code(s): S90.859A - Superficial foreign body, unspecified foot, initial encounter Status: Resolved Assessment and Plan: Metallic foreign body, probably a needle, removed yesterday. (4) Poorly controlled diabetes mellitus: Code(s): E11.65 - Type 2 diabetes mellitus with hyperglycemia Status: Chronic Assessment and Plan: Blood sugars still well over 200. Need better control. Subjective Subjective Date/Time Seen: 12/22/19 11:16 Patient reports: no new complaints and afebrile Exam Extrem: Right lower extremity: foot ( Open wound clean and dry, no purulence noted. Deep wound 1st and 2nd met) Objective Data Vital Signs Vital Signs: Vital Signs - 24 hr 12/21/19 11:56 12/21/19 12:10 12/21/19 12:25 Temperature 37.4 C Pulse Rate 76 84 76 Respiratory Rate 13 16 12 Blood Pressure 104/67 105/73 113/73 Pulse Oximetry 100 100 99 12/21/19 13:25 12/21/19 21:57 12/22/19 04:57 Temperature 36.2 C L 36.4 C L 36.4 C Pulse Rate 76 80 66 Respiratory Rate 18 16 14 Blood Pressure 105/62 110/64 113/65 Pulse Oximetry 98 96 100 Intake/Output Intake/Output: Intake & Output 12/19/19 12/20/19 12/21/19 12/22/19 23:59 23:59 23:59 23:59 Intake Total 4225 2270 1420 590 Output Total 2975 1600 650 Balance 1250 670 770 590 Meds/Results Medications: Active Medications Generic Name Dose Route Start Last Admin Trade Name Freq PRN Reason Stop Dose Admin Acetaminophen 500 mg 12/21/19 12:37 Tylenol Tablet PO Q6H PRN Mild Pain (1-3) or Fever Dextrose 12.5 gm 12/19/19 13:13 Dextrose 50% Syringe IV PUSH PRN PRN Hypoglycemia Protocol Enoxaparin Sodium 40 mg 12/19/19 09:00 12/22/19 09:08 Lovenox SUB-Q Not Given DAILY [facility] Famotidine 20 mg 12/21/19 21:00 12/22/19 09:08 Pepcid PO 20 mg Q12HR LINO Administration Glucagon 1 mg 12/19/19 13:13 Glucagon For Inj IM PRN PRN Hypoglycemia Protocol Glucose 15 gm 12/19/19 13:13 Glutose 15 PO PRN PRN Hypoglycemia Protocol Imipenem/Cilastatin Sodium 500 mg in 100 mls @ 300 mls/hr 12/18/19 22:00 12/22/19 09:28 Primaxin 500 Mg/D5w 100 Ml IVPB Infused Q6H LINO Infusion Dextrose 1,000 mls @ 100 mls/hr 12/19/19 13:13 Dextrose 5% 1,000 Ml IVPB PRN PRN Hypoglycemia Protocol Ibuprofen 800 mg in 200 mls @ 400 mls/hr 12/21/19 12:37 Caldolor 800 Mg/200 Ml IVPB Q6H PRN Pain Rated 4-6 Vancomycin HCl 2,000 mg in 500 mls @ 250 mls/hr 12/21/19 18:00 12/22/19 05:32 Vancomycin 2,000 Mg/D5w 500 Ml IVPB Not Given Q12H LINO Insulin Aspart 4 - 8 units 12/19/19 08:00 12/22/19 09:12 Novolog SUB-Q 4 units TIDWM LINO Administration Protocol Insulin Aspart 5 units 12/21/19 17:00 12/22/19 09:13 Novolog SUB-Q 5 units TIDWM LINO Administration Insulin Glargine 10 units 12/19/19 09:00 12/22/19 09:12 Lantus SUB-Q 10 units QAM LINO Administration Insulin Glargine 20 units 12/21/19 18:00 12/21/19 18:02 Lantus SUB-Q 20 units QPM LINO
[2019-12-22 11:41] LABS: Glucose Point of Care 252 (65-105)
[2019-12-22] MEDS: SILVERGEL (ELTA) 45 ML 1 APPLIC TOPICAL (14:22)
[2019-12-22 14:33] VITALS: BP 108/55; PULSE 69; RESP 12; TEMP 36.1; O2SAT 96
--- NOTE | 2019-12-22 15:05 | WPDANESPN ---
Anes - Prog Note Post-Op Date/Time: 12/22/19 15:05 Cardiovascular status: normal Respiratory status: normal Airway patency: baseline Mental status: baseline Post-Op hydration status: normal Vital Signs: Last Vital Signs Temp 36.1 C L 12/22/19 14:33 Pulse 69 12/22/19 14:33 Resp 12 12/22/19 14:33 BP 108/55 L 12/22/19 14:33 Pulse Ox 96 12/22/19 14:33 I/O: Intake & Output 12/21/19 12/22/19 12/22/19 23:59 07:59 15:59 Intake Total 680 250 580 Output Total 650 Balance 30 250 580 Laboratory Tests 12/22/19 05:08 12/22/19 05:08 12/21/19 12/21/19 12/22/19 17:48 21:05 04:19 WBC RBC Hgb Hct MCV MCH MCHC RDW Plt Count MPV Sodium Potassium Chloride Carbon Dioxide BUN Creatinine Estim Creat Clear Calc Estimated GFR Glucose POC Capillary Glucose 408 H 193 H 255 H Calcium 12/22/19 12/22/19 12/22/19 05:08 05:08 07:57 WBC 10.3 H RBC 4.86 Hgb 14.4 Hct 42.8 MCV 88.1 MCH 29.6 MCHC 33.6 RDW 12.4 Plt Count 270 MPV 8.9 Sodium 134 L Potassium 4.4 Chloride 98 Carbon Dioxide 31 H BUN 20 Creatinine 0.80 Estim Creat Clear Calc 124 Estimated GFR > 60 Glucose 259 H POC Capillary Glucose 239 H Calcium 9.3 12/22/19 11:39 WBC RBC Hgb Hct MCV MCH MCHC RDW Plt Count MPV Sodium Potassium Chloride Carbon Dioxide BUN Creatinine Estim Creat Clear Calc Estimated GFR Glucose POC Capillary Glucose 252 H Calcium Microbiology 12/21/19 11:59 Abscess Anaerobic Culture - Preliminary Post-procedural complaints: none Patient Feedback: Patient satisfied with anesthetic care.
--- NOTE | 2019-12-22 15:50 | PM.IMPN ---
Progress Note: A&P Assessment and Plan (1) Cellulitis of foot, right: Code(s): L03.115 - Cellulitis of right lower limb Status: Acute Assessment and Plan: Dressing clean and dry. BCx NGTD. WCx growing GPC. Continue IV antibiotics. (2) Foreign body in foot: Qualifiers: Encounter type: initial encounter Laterality: right Qualified Code(s): S90.851A - Superficial foreign body, right foot, initial encounter Code(s): S90.859A - Superficial foreign body, unspecified foot, initial encounter Status: Resolved Assessment and Plan: Patietn taken to OR on 12/20 (POD #1) and found to have a deep abscesses with necrotic tissue. The FB was removed. BCx NGTD. Wound cx growing GPC. Will continue broad-spectrum antibiotics and await culture results. ID consult to help with duration of treatment. MR to asess for possible osteo. MR not showing any evidence of osteo but does show again a FB in the soft tissue of the Rt great toe. Will discuss with surgery. (3) Diabetic ulcer of left foot: Qualifiers: Diabetic foot ulcer location: midfoot Diabetes mellitus type: type 2 Non-pressure ulcer stage: limited to breakdown of skin Qualified Code(s): E11.621 - Type 2 diabetes mellitus with foot ulcer; L97.421 - Non-pressure chronic ulcer of left heel and midfoot limited to breakdown of skin Code(s): E11.621 - Type 2 diabetes mellitus with foot ulcer; L97.529 - Non-pressure chronic ulcer of other part of left foot with unspecified severity Status: Chronic Assessment and Plan: Continue local wound care. Left foot is essentially all healed (4) Poorly controlled diabetes mellitus: Code(s): E11.65 - Type 2 diabetes mellitus with hyperglycemia Status: Chronic Assessment and Plan: A1c 9.6. Glucose reviewed on 12/21. Glucose still elevated inthe 200's. Continue Accuchecks with sliding scale. Will increase Lantus and scheduled a.c. insulin. (5) Amphetamine abuse: Code(s): F15.10 - Other stimulant abuse, uncomplicated Status: Chronic Assessment and Plan: Patient denies to me that he uses meth. He has been counseled about the benefit of abstaining from drug use. Care coordination to provide information about supportive servies. (6) Tobacco dependence: Code(s): F17.200 - Nicotine dependence, unspecified, uncomplicated Status: Chronic Assessment and Plan: Patient has been counseled about the beneftis of abstaining from tobacco use. Subjective Date/time seen: 12/22/19 15:50 Interval history: 54yo male with DM and severe peripheral neuropathy admitted with swollen right foot and found to have infection and foreign body between 4th and 5th metatarsal on x-ray. To OR for I&D on 12/20. Assuming care. Chart reviewed. Pain controlled. No problems overnight. +BMs. Eating okay. No CP or SOB. Exam Narrative: Exam Narrative: AF 96.9 108/55 69 12 Gen - NARD Chest - CTA bilaterally CV - RRR S1/S2 Abd - soft, NT/ND, +BS Ext - no pedal edema, 2+ DP bilaterally. Neuro - no feeling in the toea bilaterally Skin - right foot/ankle dressing clean and dry Objective Data Vital Signs Vital Signs: Vital Signs - 24 hr 12/21/19 21:57 12/22/19 04:57 12/22/19 14:33 Temperature 97.5 F L 97.6 F 96.9 F L Pulse Rate 80 66 69 Respiratory Rate 16 14 12 Blood Pressure 110/64 113/65 108/55 L Pulse Oximetry 96 100 96 Intake/Output Intake/Output: Intake & Output 12/19/19 12/20/19 12/21/19 12/22/19 23:59 23:59 23:59 23:59 Intake Total 4225 2270 1420 830 Output Total 2975 1600 650 Balance 1250 670 770 830 Meds/Results Medications: Active Medications Generic Name Dose Route Start Last Admin Trade Name Freq PRN Reason Stop Dose Admin Acetaminophen 500 mg 12/21/19 12:37 Tylenol Tablet PO Q6H PRN Mild Pain (1-3) or Fever Dextrose 12.5 gm 12/19/19 13:13 Dextrose 50
[2019-12-22 16:41] LABS: Glucose Point of Care 205 (65-105)
[2019-12-22] MEDS: INSULIN GLARGINE (*BKC) 100 UNITS/ML 20 UNITS SUB-Q (17:33)
[2019-12-22] MEDS: INSULIN ASPART (*BKC) 100 UNITS/ML 8 UNITS SUB-Q (17:34)
--- NOTE | 2019-12-22 17:35 | CONS_ITS ---
DATE OF CONSULTATION: 12/22/2019 REASON FOR CONSULTATION: Osteomyelitis and abscess. HISTORY OF PRESENT ILLNESS: The patient is a 54-year-old male with long-standing diabetes mellitus. He was at [facility] a year ago with diabetic foot infection, left plantar foot apparently due to a foreign body. He had operative intervention and was discharged on vancomycin. This apparently caused renal insufficiency for him, and he was readmitted to the hospital for another 8 days. By the time of discharge, he was sent home on oral antibiotics. He had full resolution after prolonged wound care, but in the last month due to ill-fitting shoes he has redeveloped a callus over the same area, left 4th metatarsal head area. He was admitted to the hospital with right foot symptoms on the , specifically redness and edema of 3 days duration. He knows of no trauma. He does have loss of sensation in the plantar aspect of both feet. Here, he was taken to the operating room yesterday where a foot abscess was found, which extended in the area between the 4th and 5th metatarsal heads, foreign body was removed as well. The wound was packed and left open, and he is now postop. No fever, chills, or sweats. No recent antibiotics, knows of no specific trauma to the right foot. Here he has been given imipenem and vancomycin now day 5. PRESENT MEDICATIONS: No immunosuppressants. ALLERGIES: VANCOMYCIN CAUSED THE RENAL INSUFFICIENCY. NO HYPERSENSITIVITY REACTION. HABITS: He unfortunately continues to smoke 1 pack per day. Also uses alcohol, marijuana, methamphetamine. FAMILY HISTORY: Diabetes, cancer. PAST MEDICAL HISTORY: Peripheral neuropathy as above, hyperlipidemia. REVIEW OF SYSTEMS: Musculoskeletal, skin, constitutional, respiratory, GI otherwise negative. SOCIAL HISTORY: He is . Lives locally. PHYSICAL EXAMINATION: GENERAL: This is a middle-aged male who appears his actual age. No acute distress. VITAL SIGNS: Afebrile since arrival, 113/65, 66, 14. SKIN: No generalized rash. EENT: The conjunctivae are normal. Mucous membranes well hydrated. NECK: No meningismus. LUNGS: Clear to auscultation. CARDIAC: Regular rate and rhythm without murmurs or gallops. Popliteal pulses 2+. ABDOMEN: Nontender, soft. No organomegaly. No bruits. EXTREMITIES: He has callus over the left plantar foot. The right foot has a surgical dressing in place. He has no edema. No proximal streaking. No warmth over and above normal. LABORATORY DATA: Blood cultures no growth so far. Wound culture with gram-positive cocci and moderate white cells on smear. White count was 8.1, today is 10.3; hemoglobin 14.4; platelets of 270. His sodium is 134. His Accu-Cheks in the 200s. A1c 9.6%. CRP 23. Liver function tests normal. UA, no evidence of infection. Drug screen, cannabinoids and amphetamines. RADIOLOGY: Plain films of the foot show foreign body. ASSESSMENT: 1. Right foot abscess after foreign body trauma, probably with osteomyelitis of the 4th and 5th metatarsals. He is postop day #1, drainage. 2. Diabetes mellitus and peripheral neuropathy with hyperglycemia. 3. Polysubstance abuse. RECOMMENDATIONS: 1. Counseled on tobacco cessation. 2. Hold vancomycin given his previous renal insufficiency and continue imipenem. 3. Prolonged IV antibiotics anticipated once again and he seems a reasonable candidate other than his drug use. Thank you very much for asking me to see him. EDILIA JACINTO M.D. LEAF CONDITIONER HELPER LEAF CONDITIONER HELPER D I MT: Alvin
[2019-12-22] MEDS: MORPHINE SULFATE 2 MG/ML INJ IV PUSH (18:49)
[2019-12-22 21:17] LABS: Glucose Point of Care 182 (65-105)
[2019-12-22 21:38] VITALS: BP 117/70; PULSE 71; RESP 16; TEMP 36.6; O2SAT 98
[2019-12-23 05:42] LABS: Basophils Absolute Auto 0.1 K/mm3 (0.0-0.1); Basophils Percent Auto 0.9 % (0.2-1.2); Eosinophils Absolute Auto 0.1 K/mm3 (0-0.3); Eosinophils Percent Auto 1.6 % (0-4.4); Hematocrit 42.9 % (42.0-52.0); Hemoglobin 13.9 g/dL (14.0-18.0); Immature Granulocyte Absolute 0.08 K/mm3 (0.00-0.031); Immature Granulocyte Percent A 1.1 % (0-0.5); Lymphocytes Absolute Auto 2.52 K/mm3 (0.9-3.2); Lymphocytes Percent Auto 36.2 % (18.3-44.2); Mean Corpuscular HGB Conc 32.4 g/dl (32-36); Mean Corpuscular Hemoglobin 28.9 pg (26-34); Mean Corpuscular Volume 89.2 fl (80-100); Mean Platelet Volume 8.7 fl (7.4-10.4); Monocytes Absolute Auto 0.5 K/mm3 (0.1-0.6); Monocytes Percent Auto 6.9 % (2.6-8.5); Neutrophils Absolute Auto 3.7 K/mm3 (1.3-6.7); Neutrophils Percent Auto 53.3 % (45.5-73.1); Platelet Count Result 266 k/mm3 (150-375); Red Blood Count 4.81 M/mm3 (4.6-6.20); Red Cell Distribution Width 12.4 % (11.5-14.5)
[2019-12-23 05:48] LABS: Blood Urea Nitrogen 21 mg/dL (9-20); CRP 4.4 mg/dL (<1.0); Calcium 9.2 mg/dL (8.4-10.2); Carbon Dioxide 31 mmol/L (22-30); Chloride 101 mmol/L (98-107); Estimated CRCL calculation 112 ml/min; Estimated Glomerular Filt Rate > 60; Glucose 235 mg/dL (75-110); Potassium 4.5 mmol/L (3.4-5.0); Sodium 137 mmol/L (137-145)
[2019-12-23 06:00] VITALS: BP 127/77; PULSE 66; RESP 14; TEMP 36.7; O2SAT 99
--- NOTE | 2019-12-23 06:54 | PM.PNGS ---
Progress Note: A&P Assessment and Plan (1) Abscess of foot without toes, right: Code(s): L02.611 - Cutaneous abscess of right foot Status: Acute Assessment and Plan: patient now on silver gel dressings. Wound looks good. No purulence. Cultures showing a few Gram-positive cocci. Continue wound care. Okay to ambulate. Can be discharged when suitable from a medical standpoint. (2) Diabetic infection of right foot: Code(s): E11.628 - Type 2 diabetes mellitus with other skin complications; L08.9 - Local infection of the skin and subcutaneous tissue, unspecified Status: Acute Assessment and Plan: Remains on antibiotics (3) Tobacco dependence: Code(s): F17.200 - Nicotine dependence, unspecified, uncomplicated Status: Chronic (4) Poorly controlled diabetes mellitus: Code(s): E11.65 - Type 2 diabetes mellitus with hyperglycemia Status: Chronic Assessment and Plan: diabetic control better but still too high. Subjective Subjective Date/Time Seen: 12/23/19 06:54 Post Op day: 2 Patient reports: no new complaints Exam Extrem: Right lower extremity: foot (Wound clean with no purulence, healing slowly) Objective Data Vital Signs Vital Signs: Vital Signs - 24 hr 12/22/19 14:33 12/22/19 21:38 12/23/19 06:00 Temperature 36.1 C L 36.6 C 36.7 C Pulse Rate 69 71 66 Respiratory Rate 12 16 14 Blood Pressure 108/55 L 117/70 127/77 Pulse Oximetry 96 98 99 Intake/Output Intake/Output: Intake & Output 12/20/19 12/21/19 12/22/19 12/23/19 23:59 23:59 23:59 23:59 Intake Total 2270 1420 2270 300 Output Total 1600 650 Balance 278 267 0661 300 Meds/Results Medications: Active Medications Generic Name Dose Route Start Last Admin Trade Name Freq PRN Reason Stop Dose Admin Acetaminophen 500 mg 12/21/19 12:37 Tylenol Tablet PO Q6H PRN Mild Pain (1-3) or Fever Dextrose 12.5 gm 12/19/19 13:13 Dextrose 50% Syringe IV PUSH PRN PRN Hypoglycemia Protocol Enoxaparin Sodium 40 mg 12/19/19 09:00 12/22/19 09:08 Lovenox SUB-Q Not Given DAILY LINO Famotidine 20 mg 12/21/19 21:00 12/22/19 21:11 Pepcid PO 20 mg Q12HR LINO Administration Glucagon 1 mg 12/19/19 13:13 Glucagon For Inj IM PRN PRN Hypoglycemia Protocol Glucose 15 gm 12/19/19 13:13 Glutose 15 PO PRN PRN Hypoglycemia Protocol Imipenem/Cilastatin Sodium 500 mg in 100 mls @ 300 mls/hr 12/18/19 22:00 12/23/19 04:35 Primaxin 500 Mg/D5w 100 Ml IVPB Infused Q6H LINO Infusion Dextrose 1,000 mls @ 100 mls/hr 12/19/19 13:13 Dextrose 5% 1,000 Ml IVPB PRN PRN Hypoglycemia Protocol Ibuprofen 800 mg in 200 mls @ 400 mls/hr 12/21/19 12:37 Caldolor 800 Mg/200 Ml IVPB Q6H PRN Pain Rated 4-6 Insulin Aspart 4 - 8 units 12/19/19 08:00 12/22/19 17:34 Novolog SUB-Q 4 units TIDWM LINO Administration Protocol Insulin Aspart 8 units 12/22/19 17:00 12/22/19 17:34 Novolog SUB-Q 8 units TIDWM LINO Administration Insulin Glargine 10 units 12/19/19 09:00 12/22/19 09:12 Lantus SUB-Q 10 units QAM LINO Administration Insulin Glargine 20 units 12/21/19 18:00 12/22/19 17:33 Lantus SUB-Q 20 units QPM LINO Administration Lorazepam 1 mg 12/22/19 16:08 Ativan Inj IV PUSH Q6H PRN Anxiety or agitation Morphine Sulfate 2 mg 12/21/19 12:37 12/22/19 18:49 Morphine Sulfate Inj IV PUSH 2 mg Q2H PRN Administration Pain Rated 7-10 Nicotine 1 patch 12/18/19 19:50 12/22/19 09:10 Nicoderm Cq 14 Mg TRANSDERM 1 patch QAM LINO Administration Ondansetron HCl 4 mg 12/18/19 17:51 Zofran Inj IV PUSH Q4H PRN Nausea Silver Nitrate 1 applic 12/22/19 09:00 12/22/19 14:22 Silvergel TOPICAL 1 applic DAILY LINO Administration Radiology Results: ITS Impressions Foot X-Ray 12/17
[2019-12-23 07:54] LABS: Glucose Point of Care 170 (65-105)
[2019-12-23] MEDS: SILVERGEL (ELTA) 45 ML 1 APPLIC TOPICAL (08:58)
[2019-12-23] MEDS: NICOTINE (*PBKC) 14 MG PATCH 1 PATCH TRANSDERM (08:58)
[2019-12-23] MEDS: FAMOTIDINE 20 MG TABLET PO (08:59)
[2019-12-23] MEDS: INSULIN GLARGINE (*BKC) 100 UNITS/ML 10 UNITS SUB-Q (09:00)
[2019-12-23] MEDS: INSULIN ASPART (*BKC) 100 UNITS/ML 8 UNITS SUB-Q ×3 (09:01→17:02)
[2019-12-23 11:50] LABS: Glucose Point of Care 151 (65-105)
--- NOTE | 2019-12-23 12:04 | WPDINFPN2 ---
Progress Note: A&P Assessment and Plan (1) Abscess of foot without toes, right: Code(s): L02.611 - Cutaneous abscess of right foot Status: Acute Assessment and Plan: 1. S aureus abscess of foot, POD # 2 and doing well. MRI demonstrates no OM 2. DM 3. Illicit drug use 4. Past renal insufficiency with Vanc, not hypersensitivity 5. DFI L foot last year REC Change imipenem to Ancef, as there is low suspicion for MRSA though of course not excluded. F/U susceptibility, and then begin appropriate oral therapy (e.g., dicloxacillin or TMP-SMX) x 4 weeks. Discussed with patient that the MRI is very encouraging but a snapshot in time, thus need for prolonged antibiotic therapy for potential/early periostitis adjacent to abscess. Subjective Date/time seen: 12/23/19 12:04 Interval history: no new complaints Exam Narrative: Exam Narrative: afebrile Const: General: no acute distress Eyes: General: appearance normal, both eyes and all related structures Resp: Effort & Inspection: normal respiratory effort Auscultation: clear to auscultation bilaterally Cardio: Rate: regular rate Rhythm: regular rhythm Heart sounds: no gallops and no murmurs GI: Inspection: non-distended GI Palp: Yes Soft to palpation and No Tenderness to palpation present (GI) Skin: General skin exam: normal color and no rashes or lesions noted Extrem: Right lower extremity: edema Other: no lymphangitis Objective Data Vital Signs Vital Signs: Vital Signs - 24 hr 12/22/19 14:33 12/22/19 21:38 12/23/19 06:00 Temperature 36.1 C L 36.6 C 36.7 C Pulse Rate 69 71 66 Respiratory Rate 12 16 14 Blood Pressure 108/55 L 117/70 127/77 Pulse Oximetry 96 98 99 Intake/Output Intake/Output: Intake & Output 12/20/19 12/21/19 12/22/19 12/23/19 23:59 23:59 23:59 23:59 Intake Total 2270 1420 2270 640 Output Total 1600 650 Balance 588 528 7577 640 Meds/Results Medications: Active Medications Generic Name Dose Route Start Last Admin Trade Name Freq PRN Reason Stop Dose Admin Acetaminophen 500 mg 12/21/19 12:37 Tylenol Tablet PO Q6H PRN Mild Pain (1-3) or Fever Dextrose 12.5 gm 12/19/19 13:13 Dextrose 50% Syringe IV PUSH PRN PRN Hypoglycemia Protocol Enoxaparin Sodium 40 mg 12/19/19 09:00 12/23/19 08:57 Lovenox SUB-Q Not Given DAILY LINO Famotidine 20 mg 12/21/19 21:00 12/23/19 08:59 Pepcid PO 20 mg Q12HR LINO Administration Glucagon 1 mg 12/19/19 13:13 Glucagon For Inj IM PRN PRN Hypoglycemia Protocol Glucose 15 gm 12/19/19 13:13 Glutose 15 PO PRN PRN Hypoglycemia Protocol Dextrose 1,000 mls @ 100 mls/hr 12/19/19 13:13 Dextrose 5% 1,000 Ml IVPB PRN PRN Hypoglycemia Protocol Ibuprofen 800 mg in 200 mls @ 400 mls/hr 12/21/19 12:37 Caldolor 800 Mg/200 Ml IVPB Q6H PRN Pain Rated 4-6 Insulin Aspart 4 - 8 units 12/19/19 08:00 12/23/19 11:43 Novolog SUB-Q Not Given TIDWM LINO Protocol Insulin Aspart 8 units 12/22/19 17:00 12/23/19 11:43 Novolog SUB-Q 8 units TIDWM LINO Administration Insulin Glargine 10 units 12/19/19 09:00 12/23/19 09:00 Lantus SUB-Q 10 units QAM LINO Administration Insulin Glargine 20 units 12/21/19 18:00 12/22/19 17:33 Lantus SUB-Q 20 units QPM LINO Administration Lorazepam 1 mg 12/22/19 16:08 Ativan Inj IV PUSH Q6H PRN Anxiety or agitation Morphine Sulfate 2 mg 12/21/19 12:37 12/22/19 18:49 Morphine Sulfate Inj IV PUSH 2 mg Q2H PRN Administration Pain Rated 7-10 Nicotine 1 patch 12/18/19 19:50 12/23/19 08:58 Nicoderm Cq 14 Mg TRANSDERM 1 patch QAM LINO Administration Ondansetron HCl 4 mg 12/18/19 17:51 Zofran Inj IV PUSH Q4H PRN Nausea Silver Nitrate 1 applic 12/22/19 09:00 12/23/19 08:58 Silvergel TOPICAL 1 applic DAILY LINO Administration Ra
[2019-12-23 14:00] VITALS: BP 118/73; PULSE 97; RESP 16; TEMP 36.7; O2SAT 99
[2019-12-23 16:38] LABS: Glucose Point of Care 154 (65-105)
--- NOTE | 2019-12-23 16:45 | PM.IMPN ---
Progress Note: A&P Assessment and Plan (1) Cellulitis of foot, right: Code(s): L03.115 - Cellulitis of right lower limb Status: Acute Assessment and Plan: Dressing clean and dry. BCx NGTD. WCx growing Staph. Continue IV antibiotics with Cefazolin only. Discharge tomorrow once sensitivities are known. (2) Foreign body in foot: Qualifiers: Encounter type: initial encounter Laterality: right Qualified Code(s): S90.851A - Superficial foreign body, right foot, initial encounter Code(s): S90.859A - Superficial foreign body, unspecified foot, initial encounter Status: Resolved Assessment and Plan: Patient taken to OR on 12/20 (POD #2) and found to have a deep abscesses with necrotic tissue. The FB was removed. BCx NGTD. Wound cx growing Staph but sensitivities pending. Will continue broad-spectrum antibiotics and await culture results. Appreciate ID input. MR showing no evidence of osteo but does show a FB in the soft tissue of the Rt great toe. (3) Diabetic ulcer of left foot: Qualifiers: Diabetic foot ulcer location: midfoot Diabetes mellitus type: type 2 Non-pressure ulcer stage: limited to breakdown of skin Qualified Code(s): E11.621 - Type 2 diabetes mellitus with foot ulcer; L97.421 - Non-pressure chronic ulcer of left heel and midfoot limited to breakdown of skin Code(s): E11.621 - Type 2 diabetes mellitus with foot ulcer; L97.529 - Non-pressure chronic ulcer of other part of left foot with unspecified severity Status: Chronic Assessment and Plan: Continue local wound care. Left foot is dried eschar at this point. (4) Poorly controlled diabetes mellitus: Code(s): E11.65 - Type 2 diabetes mellitus with hyperglycemia Status: Chronic Assessment and Plan: A1c 9.6. Glucose reviewed on 12/22. Glucose better in the 150's. Continue Accuchecks with sliding scale. Did not increase Lantus yesterday due to that he had a recent increase. Did increase the a.c. insulin. Continue to monitor. (5) Amphetamine abuse: Code(s): F15.10 - Other stimulant abuse, uncomplicated Status: Chronic Assessment and Plan: Patient denies to me that he uses meth. He has been counseled about the benefit of abstaining from drug use. Care coordination to provide information about supportive services. (6) Tobacco dependence: Code(s): F17.200 - Nicotine dependence, unspecified, uncomplicated Status: Chronic Assessment and Plan: Patient has been counseled about the beneftis of abstaining from tobacco use. Subjective Date/time seen: 12/23/19 16:45 Interval history: 54yo male with DM and severe peripheral neuropathy admitted with swollen right foot and found to have infection and foreign body between 4th and 5th metatarsal on x-ray. To OR for I&D on 12/20. No issues overnight. No CP or SOB. Mild 'electric shock' type pain in the foot at times. Eating okay. No diarrhea. Exam Narrative: Exam Narrative: AF 98.1 118/73 97 16 99% ra Gen - NARD lying flat in bed Chest - CTA bilaterally CV - RRR S1/S2 Abd - soft, NT/ND, +BS Ext - no pedal edema, 2+ DP bilaterally. Neuro - no feeling in the toes bilaterally Skin - right foot/ankle dressing clean and dry; left plantar dried eschar over lying the 4th metatarsal Objective Data Vital Signs Vital Signs: Vital Signs - 24 hr 12/22/19 21:38 12/23/19 06:00 12/23/19 14:00 Temperature 97.9 F 98.1 F 98.1 F Pulse Rate 71 66 97 Respiratory Rate 16 14 16 Blood Pressure 117/70 127/77 118/73 Pulse Oximetry 98 99 99 Intake/Output Intake/Output: Intake & Output 12/20/19 12/21/19 12/22/19 12/23/19 23:59 23:59 23:59 23:59 Intake Total 2270 1420 2270 920 Output Total 1600 650 Balance 894 549 5724 920 Meds/Results Medications: Active Medications Generic Name Dose Route Start Last Admin Trade Name Freq PRN Reason Stop Dose
[2019-12-23] MEDS: INSULIN GLARGINE (*BKC) 100 UNITS/ML 20 UNITS SUB-Q (17:02)
[2019-12-23] MEDS: ACETAMINOPHEN 500 MG TABLET PO (18:47)
[2019-12-23 21:22] VITALS: BP 136/78; PULSE 75; RESP 16; TEMP 37.1; O2SAT 100
[2019-12-23 21:30] VITALS: PULSE 75; RESP 16; O2SAT 100
[2019-12-24 00:40] LABS: Glucose Point of Care 131 (65-105)
[2019-12-24 06:00] VITALS: BP 133/80; PULSE 63; RESP 14; TEMP 36.9; O2SAT 100
[2019-12-24 06:15] LABS: Estimated CRCL calculation 124 ml/min; Estimated Glomerular Filt Rate > 60
--- NOTE | 2019-12-24 06:48 | PM.PNGS ---
Progress Note: A&P Assessment and Plan (1) Diabetic infection of right foot: Code(s): E11.628 - Type 2 diabetes mellitus with other skin complications; L08.9 - Local infection of the skin and subcutaneous tissue, unspecified Status: Acute Assessment and Plan: Improving. (2) Abscess of foot without toes, right: Code(s): L02.611 - Cutaneous abscess of right foot Status: Acute Assessment and Plan: Wound is healing well with silver gel dressings. Can go home when okay with other physicians. Should be on silver gel dressings daily. Okay to bathe and shower. See me in 2 weeks. (3) Foreign body in foot: Qualifiers: Encounter type: initial encounter Laterality: right Qualified Code(s): S90.851A - Superficial foreign body, right foot, initial encounter Code(s): S90.859A - Superficial foreign body, unspecified foot, initial encounter Status: Resolved Assessment and Plan: Removed at surgery 3 days ago. (4) Poorly controlled diabetes mellitus: Code(s): E11.65 - Type 2 diabetes mellitus with hyperglycemia Status: Chronic Assessment and Plan: Emphasized the importance of good diabetic control to facilitate healing of his right foot wound. (5) Tobacco dependence: Code(s): F17.200 - Nicotine dependence, unspecified, uncomplicated Status: Chronic Subjective Subjective Date/Time Seen: 12/24/19 06:48 Post Op day: 3 Patient reports: no new complaints Exam Extrem: Right lower extremity: foot (Fifth plantar metatarsal wound healing well.) Details: other ( No purulence noted, granulation tissue developing.) Objective Data Vital Signs Vital Signs: Vital Signs - 24 hr 12/23/19 14:00 12/23/19 21:22 12/23/19 21:30 Temperature 36.7 C 37.1 C Pulse Rate 97 75 75 Respiratory Rate 16 16 16 Blood Pressure 118/73 136/78 Pulse Oximetry 99 100 100 12/24/19 06:00 Temperature 36.9 C Pulse Rate 63 Respiratory Rate 14 Blood Pressure 133/80 Pulse Oximetry 100 Intake/Output Intake/Output: Intake & Output 12/21/19 12/22/19 12/23/19 12/24/19 23:59 23:59 23:59 23:59 Intake Total 1420 2270 2310 350 Output Total 650 1800 Balance 770 2270 510 350 Meds/Results Medications: Active Medications Generic Name Dose Route Start Last Admin Trade Name Freq PRN Reason Stop Dose Admin Acetaminophen 500 mg 12/21/19 12:37 12/23/19 18:47 Tylenol Tablet PO 500 mg Q6H PRN Administration Mild Pain (1-3) or Fever Dextrose 12.5 gm 12/19/19 13:13 Dextrose 50% Syringe IV PUSH PRN PRN Hypoglycemia Protocol Enoxaparin Sodium 40 mg 12/19/19 09:00 12/23/19 08:57 Lovenox SUB-Q Not Given DAILY LINO Famotidine 20 mg 12/21/19 21:00 12/23/19 21:10 Pepcid PO Not Given Q12HR LINO Glucagon 1 mg 12/19/19 13:13 Glucagon For Inj IM PRN PRN Hypoglycemia Protocol Glucose 15 gm 12/19/19 13:13 Glutose 15 PO PRN PRN Hypoglycemia Protocol Dextrose 1,000 mls @ 100 mls/hr 12/19/19 13:13 Dextrose 5% 1,000 Ml IVPB PRN PRN Hypoglycemia Protocol Ibuprofen 800 mg in 200 mls @ 400 mls/hr 12/21/19 12:37 Caldolor 800 Mg/200 Ml IVPB Q6H PRN Pain Rated 4-6 Cefazolin Sodium 1,000 mg/ 50 mls @ 100 mls/hr 12/23/19 14:00 12/24/19 05:23 Dextrose IVPB 100 mls/hr Q8HR LINO Administration Insulin Aspart 4 - 8 units 12/19/19 08:00 12/23/19 17:00 Novolog SUB-Q Not Given TIDWM [facility] Protocol Insulin Aspart 8 units 12/22/19 17:00 12/23/19 17:02 Novolog SUB-Q 8 units TIDWM LINO Administration Insulin Glargine 10 units 12/19/19 09:00 12/23/19 09:00 Lantus SUB-Q 10 units QAM LINO Administration Insulin Glargine 20 units 12/21/19 18:00 12/23/19 17:02 Lantus SUB-Q 20 units QPM LINO Administration Lorazepam 1 mg 12/22/19 16:08 Ativan Inj IV PUSH Q6H PRN Anxiety o
[2019-12-24 07:42] LABS: Glucose Point of Care 176 (65-105)
[2019-12-24] MEDS: SILVERGEL (ELTA) 45 ML 1 APPLIC TOPICAL (08:09)
[2019-12-24] MEDS: NICOTINE (*PBKC) 14 MG PATCH 1 PATCH TRANSDERM (08:13)
[2019-12-24] MEDS: FAMOTIDINE 20 MG TABLET PO (08:14)
[2019-12-24] MEDS: INSULIN ASPART (*BKC) 100 UNITS/ML 8 UNITS SUB-Q ×2 (08:15→11:41)
[2019-12-24] MEDS: INSULIN GLARGINE (*BKC) 100 UNITS/ML 10 UNITS SUB-Q (08:16)
--- NOTE | 2019-12-24 11:09 | PM.DS ---
DS: Admitting Diagnosis Admitting Diagnosis Admitting Diagnosis: Cellulitis of right lower limb DS: Discharge Diagnosis Discharge Diagnosis (1) Cellulitis of foot, right: Code(s): L03.115 - Cellulitis of right lower limb Status: Acute Assessment and Plan: Related to FB and abscess s/p I&D. Wound clean and dry. WCx growing MRSA. Patient was refusing Vancomycin given his concern for renal failure when he took this last time. Plan for 4 weeks of therapy with Bactrim so will plan to check CBC and BMP in 10 days. (2) Foreign body in foot: Qualifiers: Encounter type: initial encounter Laterality: right Qualified Code(s): S90.851A - Superficial foreign body, right foot, initial encounter Code(s): S90.859A - Superficial foreign body, unspecified foot, initial encounter Status: Resolved Assessment and Plan: Patient taken to OR on 12/20 and found to have a deep abscesses with necrotic tissue. The FB around the 4th metatarsal was removed. BCx negative. Wound cx growing MRSA. Appreciate ID input. MRI of right foot showing no evidence of osteo but does show a FB in the soft tissue of the Rt great toe. Discussed with radiology who state that this FB of the right great toe has been present for 2 years. Discussed with General SUrgery who will watch this area but no current inflammation in this area. (3) Diabetic ulcer of left foot: Qualifiers: Diabetic foot ulcer location: midfoot Diabetes mellitus type: type 2 Non-pressure ulcer stage: limited to breakdown of skin Qualified Code(s): E11.621 - Type 2 diabetes mellitus with foot ulcer; L97.421 - Non-pressure chronic ulcer of left heel and midfoot limited to breakdown of skin Code(s): E11.621 - Type 2 diabetes mellitus with foot ulcer; L97.529 - Non-pressure chronic ulcer of other part of left foot with unspecified severity Status: Chronic Assessment and Plan: Left foot is dried eschar at this point. He is planning to follow up with podiatry. (4) Poorly controlled diabetes mellitus: Code(s): E11.65 - Type 2 diabetes mellitus with hyperglycemia Status: Chronic Assessment and Plan: A1c 9.6. Glucose monitored closely. Glucose elevated and insulin adjusted. Glucose better controlled in the 130-170. Continue Accuchecks with sliding scale. Continue current regiment. (5) Amphetamine abuse: Code(s): F15.10 - Other stimulant abuse, uncomplicated Status: Chronic Assessment and Plan: Patient denies to me that he uses meth. He has been counseled about the benefit of abstaining from drug use. Care coordination provided information about supportive services. (6) Tobacco dependence: Code(s): F17.200 - Nicotine dependence, unspecified, uncomplicated Status: Chronic Assessment and Plan: Patient has been counseled about the benefits of abstaining from tobacco use. DS: Summary Hospital Course Reason for hospitalization: 54yo male here for right foot infection. please see H&P for details. Hospital Course: As above. Time Spent with Patient Time attestation: Total time spent providing and/or coordinating discharge services: 35 minutes Time spent: Greater than 30 minutes Specific discharge activities: case discussed with other providers. Patient seen and examined. preparing medical record Exam Narrative: Exam Narrative: AF 133/80 63 14 100% ra Gen - NARD Chest - CTA bilaterally CV - RRR S1/S2 Abd - soft, NT/ND, +BS Ext - no pedal edema Neuro - no feeling in the toes bilaterally Skin - right foot/ankle dressing clean and dry; left plantar dried eschar over lying the 4th metatarsal DS: Data Data Completed and Pending Completed studies during hospitalization: Pending at discharge 12/21/19 12:02 Surgical [PTH] Routine Labs on day of discharge: Labs from last 24 hours 12/24/19 12/24/19 12/23/19
[2019-12-24 11:56] LABS: Glucose Point of Care 186 (65-105)
--- NOTE | 2019-12-28 11:18 | PC.NURSE ---
Wound cx is susceptible to Bactrim. Dr. Eric jovle.
== END 2019-12-24 13:21 | disposition home or self-care (01) | DRG 364 ==
LOC: ANHED 17:52 → ANH3MED 18:42
PROVIDERS: Emergency Medicine Emergency Medical Services; Internal Medicine; Surgery; Admitting Provider Family Medicine; Emergency Provider Emergency Medicine; PCP Internal Medicine Infectious Disease; Visit Provider Internal Medicine
PROC: 0KBV0ZZ Excision of Right Foot Muscle, Open Approach (ICD-10-PCS; principal; 2019-12-21 11:00)
DX: L03.115 Cellulitis of right lower limb (principal); E11.621 Type 2 diabetes mellitus with foot ulcer; S91.341A Puncture wound with foreign body, right foot, initial encounter; L02.611 Cutaneous abscess of right foot; W22.8XXA Striking against or struck by other objects, initial encounter; Y92.017 Garden or yard in single-family (private) house as the place of occurrence of the external cause; E11.65 Type 2 diabetes mellitus with hyperglycemia; F17.210 Nicotine dependence, cigarettes, uncomplicated; F15.10 Other stimulant abuse, uncomplicated; L97.421 Non-pressure chronic ulcer of left heel and midfoot limited to breakdown of skin; Z79.4 Long term (current) use of insulin; E11.42 Type 2 diabetes mellitus with diabetic polyneuropathy; B95.62 Methicillin resistant Staphylococcus aureus infection as the cause of diseases classified elsewhere
CPT/HCPCS: 36415; 73630; 73718; 76000; 80048; 80053; 80307; 81001; 82010; 82565; 82948; 83036; 83605; 83735; 84100; 84550; 85025; 85027; 85610; 85652; 85730; 86140; 87040; 87070; 87075; 87147; 87186; 87205; 88300; 93971; 96361; 96365; 96366; 96367; 96375; 96376; 99285; A9270; G0378; J0131; J0330; J0690; J0743; J1100; J1650; J1815; J1885; J2250; J2270; J2370; J2405; J2704; J3010; J7030; J7120

== ENCOUNTER 2020-03-02 12:36 | Outpatient (CLI) | payer BC, SELFPAY ==
--- NOTE | 2020-03-03 09:32 | WPDNEUROLOGY ---
Neurology EEG Report General Information Date of Study: 03/02/20 TEST EEG DIAGNOSIS memory loss CONDITION OF RECORDING awake ,drowsy and sleep EEG NUMBER [id number] CLINICAL HISTORY The patient reported that he has noted memory loss which is getting worse. EEG DESCRIPTION Basic resting occipital frequency consist of moderate amount of well-organized low to medium voltage 9 to 11 hertz per 2nd alpha admixed with low-voltage 15 to 18 hertz per 2nd beta activity. During drowsiness low-voltage beta activity is seen diffusely admixed with waxing and waning posterior alpha rhythm. Bilateral symmetrical sleep spindles are seen during deeper stages of sleep. Photic stimulation produces normal drive. Hyperventilation not done. Non paroxysmal. Nonfocal. Nonlateralizing. IMPRESSION Normal EEG during wakefulness, drowsiness and sleep.
== END 2020-03-02 12:37 | disposition home or self-care (01) ==
PROVIDERS: PCP Internal Medicine Infectious Disease; Visit Provider Psychiatry & Neurology Neurology
DX: R41.3 Other amnesia (principal)
CPT/HCPCS: 95816

== ENCOUNTER 2020-05-04 10:38 | Outpatient (CLI) | payer BC, SELFPAY ==
--- NOTE | 2020-05-04 11:45 | NEURO_ITS ---
Impression: # Known diabetic complains of numbness of feet. # Neuropathy involving lower extremities, posterior tibial nerves more than peroneal nerves. # Moderate Carpal Tunnel Syndrome, bilaterally. # Prolongation of F-waves. # Patient refused needle/EMG exam due to poor pain tolerance. Nerve Conduction Studies Anti Sensory Summary Table Stim Site NR Peak (ms) P-T Amp (?V) Site1 Site2 Delta-P (ms) Dist (cm) Hema (m/s) Left Median Anti Sensory (2-3nd Digit) Wrist 5.4 13.7 Wrist 2-3nd Digit 5.4 14.0 26 Wrist 5.4 13.0 Wrist 2-3nd Digit 5.4 14.0 26 Right Median Anti Sensory (2-3nd Digit) Wrist 5.2 9.6 Wrist 2-3nd Digit 5.2 14.0 27 Wrist 5.4 6.6 Wrist 2-3nd Digit 5.2 14.0 27 Left Radial Anti Sensory (Base 1st Digit) Wrist 2.3 22.3 Wrist Base 1st Digit 2.3 0.0 Right Radial Anti Sensory (Base 1st Digit) Wrist 2.8 8.2 Wrist Base 1st Digit 2.8 0.0 Left Sup Fibular Anti Sensory (Ant Lat Mall) 14 cm 3.7 33.8 14 cm Ant Lat Mall 3.7 16.0 43 Right Sup Fibular Anti Sensory (Ant Lat Mall) NO RESPONSE 14 cm NR 14 cm Ant Lat Mall 16.0 Left Sural Anti Sensory (Lat Mall) Calf 3.6 18.0 Calf Lat Mall 3.6 16.0 44 Right Sural Anti Sensory (Lat Mall) NO RESPONSE Calf NR Calf Lat Mall 16.0 Left Ulnar Anti Sensory (5th Digit) Wrist 3.2 4.9 Wrist 5th Digit 3.2 14.0 44 Right Ulnar Anti Sensory (5th Digit) Wrist 3.1 21.3 Wrist 5th Digit 3.1 14.0 45 Motor Summary Table Stim Site NR Onset (ms) O-P Amp (mV) Site1 Site2 Delta-0 (ms) Dist (cm) Hema (m/s) Left Median Motor (Abd Poll Brev) Wrist 4.9 3.5 Elbow Wrist 6.4 31.0 48 Elbow 11.3 3.4 Right Median Motor (Abd Poll Brev) Wrist 4.9 2.2 Elbow Wrist 7.0 31.0 44 Elbow 11.9 3.3 Left Peroneal Motor (Vastus Med) Ankle 6.0 0.2 Popit Ankle 12.2 43.0 35 Popit 18.2 0.5 Right Peroneal Motor (Vastus Med) Ankle 6.0 1.1 Popit Ankle 11.7 43.0 37 Popit 17.7 0.9 Left Tibial Motor (Abd Roman Brev) NO RESPONSE Ankle NR Knee NR Right Tibial Motor (Abd Roman Brev) NO RESPONSE Ankle NR Knee NR Left Ulnar Motor (Abd Dig Minimi) Wrist 2.8 7.2 A Elbow Wrist 7.3 33.0 45 A Elbow 10.1 3.8 Right Ulnar Motor (Abd Dig Minimi) Wrist 2.7 6.2 A Elbow Wrist 6.9 31.0 45 A Elbow 9.6 2.9 B Elbow Wrist 5.7 25.0 44 B Elbow 8.4 0.7 F Wave Studies NR F-Lat (ms) L-R F-Lat (ms) Left Median (Mrkrs) (Abd Poll Brev) 29.58 1.36 Right Median (Mrkrs) (Abd Poll Brev) 30.94 1.36 Left Peroneal (Mrkrs) (EDB) 72.88 1.05 Right Peroneal (Mrkrs) (EDB) 73.93 1.05 Left Tibial (Mrkrs) (Abd Hallucis) 72.51 1.75 Right Tibial (Mrkrs) (Abd Hallucis) 74.27 1.75 Left Ulnar (Mrkrs) (Abd Dig Min) 27.36 1.32 Right Ulnar (Mrkrs) (Abd Dig Min) 28.69 1.32 EMG Side Muscle Nerve Root Ins Act Fibs Amp Dur Recrt Comment Right 1stDorInt Ulnar C8-T1 Nml Nml Nml Nml Nml Right Ext Indicis Radial (Post Int) C7-8 Nml Nml Nml Nml Nml Right Ext Digitorum Radial (Post Int) C7-8 Nml Nml Nml Nml Nml MTDD
== END 2020-05-04 10:39 | disposition home or self-care (01) ==
LOC: ANHNEURO 10:39
PROVIDERS: PCP Internal Medicine Infectious Disease; Visit Provider Psychiatry & Neurology Neurology
DX: G62.9 Polyneuropathy, unspecified (principal)
CPT/HCPCS: 95885; 95913

== ENCOUNTER → 2020-09-03 01:53 | Outpatient (CLI) | payer BC, SELFPAY ==
[2020-09-03 19:34] LABS: SARS-CoV-2 RNA PCR Negative
== END ==
PROVIDERS: PCP Internal Medicine Infectious Disease; Visit Provider Plastic Surgery
DX: Z01.812 Encounter for preprocedural laboratory examination (principal); Z20.822 Contact with and (suspected) exposure to COVID-19
CPT/HCPCS: C9803; U0003; U0005

== ENCOUNTER 2020-09-07 01:41 | Day surgery (SDC) | payer BC, SELFPAY ==
[2020-09-05 09:13] VITALS: BMI 30.8
--- NOTE | 2020-09-07 07:15 | WPDHPUPDATE1 ---
History and Physical Update Update Date/Time: 09/07/20 07:15 History and Physical has been reviewed, including an updated exam of the patient. There are NO changes in the patient's condition. Risks, benefits, and alternatives have been discussed and questions answered. Patient agrees to proceed with procedure.
[2020-09-07 09:16] VITALS: BP 126/78; PULSE 88; RESP 18; TEMP 36; O2SAT 98
[2020-09-07] MEDS: LIDO 1%/EPINEPHRINE 1:100,000 50 ML VIAL 6 ML INFILTRATE (10:44)
[2020-09-07 10:50] VITALS: PULSE 72; RESP 16; O2SAT 98
[2020-09-07 11:00] VITALS: BP 125/80; PULSE 74; RESP 20; O2SAT 99
[2020-09-07] MEDS: BACITRACIN OINTMENT 15 GM TUBE 1 APPLIC TOPICAL (11:06)
[2020-09-07 11:10] VITALS: BP 121/77; PULSE 78; RESP 16; O2SAT 99
[2020-09-07 11:17] VITALS: BP 116/63; PULSE 73; RESP 20
--- NOTE | 2020-09-07 11:26 | PM.OP ---
Procedure Note - Brief Procedure Note - Brief Date of procedure: 09/07/20 Pre-op diagnosis: left carpal tunnel syndrome Post-op diagnosis: same Procedure performed: L OCTR Anesthesia: local Surgeon: Miguel Escobedo MD Estimated blood loss (mL): 0 Tourniquet time (min): 8 Drains: No Packing: No Pathology: none sent Complications: No immediate complications Condition: stable Disposition: same day
--- NOTE | 2020-09-07 11:27 | PM.PROC ---
Procedure Note - Detailed Date of procedure: 09/07/20 Pre-op diagnosis: left carpal tunnel syndrome Post-op diagnosis: same Procedure performed: Left open carpal tunnel release Description of procedure: The patient's left hand was marked in the holding area. He was taken to the operating room where he was placed supine on the operating table. Time-out was held and confirmed. Extremity was prepped and draped in usual fashion. The site was remarked and locally infiltrated with 1% lidocaine with epinephrine. The tourniquet was utilized to 250 mmHg. The incision was made in the palm as marked. This was eventually extended a little because this palm was very thick. Dissection was carried with sharp and blunt dissection to the palmar aponeurosis. This and the carpal ligament were incised opening the carpal canal. Under 3 point retraction the ligament was divided distally and proximally to completely release it. No unusual anatomy was noted. The skin wound was closed with interrupted 4-0 nylon suture and the tourniquet was released. The usual bandage was applied. He is being discharged home with a prescription for hydrocodone 5/325 10. Anesthesia: local Surgeon: Miguel Escobedo MD Estimated blood loss (mL): 1 Tourniquet time (min): 8 Drains: No Packing: No Pathology: none sent Complications: No immediate complications Condition: stable Disposition: same day
== END 2020-09-07 11:53 | disposition home or self-care (01) ==
PROVIDERS: PCP Internal Medicine Infectious Disease; Visit Provider Plastic Surgery
PROC: (CPT 64721; principal; 2020-09-07 10:00)
DX: G56.02 Carpal tunnel syndrome, left upper limb (principal); E11.40 Type 2 diabetes mellitus with diabetic neuropathy, unspecified; F32.9 Major depressive disorder, single episode, unspecified
CPT/HCPCS: 64721; A9270

== ENCOUNTER 2020-10-02 10:56 | Inpatient (IN) | payer BC, SELFPAY ==
--- NOTE | ~2020-10-02 | XR_ITS ---
XR foot RT min 3V DATE: 10/02/2020 13:23 INDICATION: Ulcer. Evaluate for osteomyelitis. TECHNIQUE: 4 portable views COMPARISON: None FINDINGS: Prominent plantar and posterior calcaneal enthesopathy. No fracture, dislocation, periosteal reaction or bone destruction. IMPRESSION: Prominent plantar and posterior calcaneal enthesopathy Reviewed, dictated and finalized at location A.
[2020-10-02 11:00] VITALS: BP 116/77; PULSE 109; RESP 20; TEMP 36.1; O2SAT 100
[2020-10-02 11:19] LABS: Basophils Percent Auto 0.4 % (0.2-1.2); Eosinophils Percent Auto 0.4 % (0-4.4); Hematocrit 46.1 % (42.0-52.0); Hemoglobin 16.1 g/dL (14.0-18.0); Immature Granulocyte Absolute 0.05 K/mm3 (0.00-0.031); Immature Granulocyte Percent A 0.5 % (0-0.5); Lymphocytes Absolute Auto 1.16 K/mm3 (0.9-3.2); Lymphocytes Percent Auto 11.9 % (18.3-44.2); Mean Corpuscular HGB Conc 34.9 g/dl (32-36); Mean Corpuscular Hemoglobin 30.6 pg (26-34); Mean Corpuscular Volume 87.5 fl (80-100); Mean Platelet Volume 9.5 fl (7.4-10.4); Monocytes Absolute Auto 0.7 K/mm3 (0.1-0.6); Neutrophils Absolute Auto 7.8 K/mm3 (1.3-6.7); Neutrophils Percent Auto 79.8 % (45.5-73.1); Platelet Count Result 263 k/mm3 (150-375); Red Blood Count 5.27 M/mm3 (4.6-6.20); Red Cell Distribution Width 11.6 % (11.5-14.5); White Blood Count 9.7 K/mm3 (4.5-10.0)
[2020-10-02 11:24] LABS: Alanine Aminotransferase 22 U/L (4-50); Albumin Level 4.1 g/dL (3.5-5.1); Alkaline Phosphatase 156 U/L (38-126); Anion Gap 4 mmol/L (8-16); Aspartate Amino Transferase 29 U/L (17-59); Bilirubin,Total 0.5 mg/dL (0.2-1.3); Blood Urea Nitrogen 14 mg/dL (9-20); Calcium 9.7 mg/dL (8.4-10.2); Carbon Dioxide 31 mmol/L (22-30); Chloride 95 mmol/L (98-107); Estimated CRCL calculation 110 ml/min; Estimated Glomerular Filt Rate > 60; Glucose 370 mg/dL (75-110); Potassium 4.4 mmol/L (3.4-5.0); Sodium 130 mmol/L (137-145)
--- NOTE | 2020-10-02 11:30 | PC.NURSE ---
Arrives from home, s/p x2 days worsening R foot pain, hx diabetic ulcers with new area of concern to bottom of R foot. Small popped blister noted with surrounding erythema and tenderness, no current drainage, cannot put weight on that foot d/t pain and difficulty putting on shoes. 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 Afebrile
--- NOTE | 2020-10-02 12:30 | PC.NURSE ---
Pt updated on POC, awaiting ED provider eval. Provided extra blanket, placed in position of comfort, call light within reach
[2020-10-02 13:48] LABS: CRP 20.9 mg/dL (<1.0)
--- NOTE | 2020-10-02 14:30 | PC.NURSE ---
ED MD at bedside to update pt on POC, pt aware of admission
[2020-10-02] MEDS: SODIUM CHLORIDE 0.9% IV 1,000 ML 75 ML IV CONT (14:31)
--- NOTE | 2020-10-02 14:40 | ED.GENADULT ---
HPI - General Adult General Chief complaint: Wound/Laceration Stated complaint: right foot wound Time Seen by Provider: 10/02/20 12:05 Source: patient and family Mode of arrival: ambulatory Limitations: no limitations History of Present Illness HPI narrative: 55-year-old with a history of diabetes, hypertension here with complaints of ulcer on his right foot for past few days. No history of trauma. He denies any fever. Patient states that his blood sugars have been running high and he was recently started back again on Metformin. He denies any drainage from the foot. Patient reports that Dr. Raymundo has debrided the wound in the past. Onset (ago): day(s) Location: lower extremity (Rt .foot) Radiation: non-radiation Severity: moderate Severity scale (1-10): 4 Relieving factors: none Exacerbating factors: none Associated symptoms: denies other symptoms Related Data Home Medications Medication Instructions Recorded Confirmed Basaglar KwikPen U-100 Insulin 10 unit SUBCUT QAM 12/18/19 09/07/20 Basaglar KwikPen U-100 Insulin 15 unit SUBCUT QPM 12/18/19 09/07/20 Tradjenta 5 mg PO DAILY 12/18/19 09/07/20 pen needle, diabetic [BD 12/18/19 03/03/20 Ultra-Fine Diane Pen Needle] atorvastatin 20 mg PO HS 09/05/20 09/07/20 insulin lispro [Admelog SoloStar 8 unit SUBCUT TIDWM 09/05/20 09/07/20 U-100 Insulin] Allergies Allergy/AdvReac Type Severity Reaction Status Date / Time vancomycin AdvReac Other Verified 09/05/20 09:10 Review of Systems Review of Systems: All systems reviewed & are unremarkable except as noted in HPI and below Constitutional: Constitutional: Reports no additional constitutional complaints Eyes: Eyes: Reports no additional eye complaints ENT: Reports system reviewed and no additional complaints, except as documented Cardiovascular: Cardiovascular: Reports no additional cardiovascular complaints Respiratory: Respiratory: Reports no additional respiratory complaints Gastrointestinal: Gastrointestinal: Reports no additional gastrointestinal complaints Musculoskeletal: Musculoskeletal: Reports as per HPI Integumentary/Breasts: Skin/Breast: Reports as per HPI PMFSH Past Medical History Medical History (Updated 10/02/20 @ 14:44 by Franklin Abarca MD) Amphetamine abuse Cellulitis of foot, right Diabetes mellitus Diabetic infection of right foot Diabetic ulcer of left foot Hypercholesterolemia Obesity Peripheral neuropathy Tobacco dependence Surgical History Surgical History Hx of colonoscopy Status post debridement Excisional debridement skin SQ and muscle 4 SQ cm plantar surface right foot, removal foreign body under fluoroscopy - 12/21/2019 Family History Family History Other Diabetes mellitus Family history of malignant neoplasm Social History Social History Smoking packs per day: 1 Smoking cigarettes per day: 20.0 Years smoked: 42 Smoking pack-years: 42.00 Smoking status: Current every day smoker Tobacco type: cigarettes Alcohol intake: current Drinks per week: 3 Substance use: current Substance use type: marijuana and methamphetamine Other substance usage details: SMOKES MARIJUANA EVERY FEW DAYS Last use: 09/04/20 Gender identity (if verbalized by the patient): Male Spiritual care concerns: No Course Course Emergency Course: We reviewed his lab work, x-ray findings high discussed with the Nicki will admit him for IV antibiotic consult surgery the morning. Patient agreed for admission. Vital Signs Vital signs: Vital Signs Temperature 36.1 C L 10/02/20 11:00 Pulse Rate 109 H 10/02/20 11:00 Respiratory Rate 20 10/02/20 11:00 Blood Pressure 116/77 10/02/20 11:00 Pulse Oximetry 100 10/02/20 11:00 Temperature 36.1 C L 10/02/20 11:00 Pulse Rate 109 H 10/02/20 1
[2020-10-02 14:51] LABS: Lactic Acid Reflex 1.8 mmol/L (0.7-2.1)
[2020-10-02 15:14] VITALS: BP 120/65; PULSE 87; RESP 17; O2SAT 99
[2020-10-02 16:19] VITALS: BMI 31.4
[2020-10-02 16:34] VITALS: BP 112/75; PULSE 87; RESP 16; TEMP 36.6; O2SAT 99
--- NOTE | 2020-10-02 16:35 | PM.IMHP ---
H&P: HPI History of Present Illness Date/Time: 10/02/20 16:35 Chief Complaint: Right foot wound. Narrative: This is a 55-year-old male smoker with history of poorly controlled diabetes, peripheral neuropathy, and history of diabetic foot ulcers who presented to the emergency department for evaluation of a right foot wound that he 1st noticed a couple of days ago. He admits to having a small chronic callus at that site however several days ago he noticed some faint erythema starting to creep up on to the inside arch of his foot and he is also having discomfort with weight-bearing when typically he does not due to his neuropathy. Given his history of ulcers requiring debridement he came in for evaluation and is being admitted for cellulitis. At the time my evaluation he is resting comfortably and has no complaints. He has not had fever, chills, sweats, nausea, or vomiting. No history of MRSA or Pseudomonas to his knowledge. Review of Systems Review of Systems: Narrative: Twelve systems were reviewed with pertinent positives and negatives as per HPI. No cold or flu symptoms. He denies cough and shortness of breath. No chest pain. No exposure to those positive for COVID-19. Denies blurry vision, polydipsia, and polyuria. Glucose has been running a bit high the last several days. Denies diarrhea. Except as documented, all other systems were reviewed and are negative. [facility] Past Medical History Medical History (Updated 10/02/20 @ 23:01 by Jennifer Bliss PA-C) Diabetic foot ulcers Diabetic peripheral neuropathy Hypercholesterolemia Polysubstance abuse Including methamphetamines and marijuana. Tobacco dependence Type 2 diabetes mellitus Surgical History Surgical History (Updated 10/02/20 @ 16:00 by Jennifer Bliss PA-C) History of carpal tunnel release (~09/07/20) Left-sided per Dr. Escobedo. History of colonoscopy (~10/2008) Negative aside from internal hemorrhoidal tissue per Dr. Damico. Status post debridement (~12/21/19) Excisional debridement of skin, subcutaneous tissue, and muscle of a 4 cm2 ulcer of the plantar surface of the right foot with removal foreign body under fluoroscopy per Dr. Raymundo. Family History Family History (Updated 10/02/20 @ 16:00 by Jennifer Bliss PA-C) Other Carcinoma of colon Diabetes mellitus Social History Social History (Updated 10/02/20 @ 22:58 by Jennifer Bliss PA-C) Social History: Surrogate decision maker: Maxwell Webster, spouse. Code status: Full code. Smoking packs per day: 1 Smoking cigarettes per day: 20.0 Years smoked: 40 Smoking pack-years: 40.00 Smoking status: Current every day smoker Tobacco type: cigarettes Alcohol intake: never Drinks per week: 3 Substance use: current Substance use type: marijuana and methamphetamine Last use: 09/02/2020 Additional living arrangements comments: Lives in [place] with his spouse. Additional occupation/education comments: Unemployed. Gender identity (if verbalized by the patient): Male Spiritual care concerns: No Meds Home Medications and Allergies Home Medications Medication Instructions Recorded Confirmed Type insulin lispro [Admelog SoloStar See Rx Instructions .ROUTE .COMPLEX 09/05/20 10/02/20 History U-100 Insulin] empagliflozin [Jardiance] 25 mg PO DAILY 10/02/20 10/02/20 History liraglutide [Victoza 2-Desean] 1.2 mg SUBCUT DAILY 10/02/20 10/02/20 History metformin 500 mg PO BID 10/02/20 10/02/20 History Allergies Allergy/AdvReac Type Severity Reaction Status Date / Time vancomycin AdvReac Other Verified 10/02/20 16:36 Vital Signs Vital Signs - 24 hr 10/02/20 11:00 10/02/20 15:14 Temperature 97.0 F L Pulse Rate 109 H 87 Respiratory Rate 20 17 Blood Pressure 116/77 120/65 Pulse Oximetry 100 99 Exam Narrative: Exam Narrative: General: Mildly ill-appearing male in the semi-Tsai position in bed in no distress. Weight: 111.1 kilo
[2020-10-02 17:06] LABS: Glucose Point of Care 139 (65-105)
[2020-10-02 17:26] LABS: Magnesium 2.4 mg/dL (1.6-2.3)
[2020-10-02 17:39] LABS: Hemoglobin A1C 11.9 % (<5.7)
--- NOTE | 2020-10-02 17:45 | PC.NURSE ---
Pt admits to using recreational drugs, but didn't want to discuss them. Later, he admitted to using methamphetamines but less than he uses marijuana. Pt states he has not used his insulin in over a month. Pt also stated I like the pain meds a lot more than I should and I have to give them to my so she can give them to me when I should have them. Pt educated on importance of medications and keeping sugars WNL at all times to promote wound healing and overall health. Pt agrees but does not appear to be willing to make changes. already aware and states she keeps trying to push him to do better.
--- NOTE | 2020-10-02 18:27 | PC.NURSE ---
pt stopped by nurses [facility] to speak to this rn. she states that pt has recently used methamphetamines-unsure of when he used. She states that he can be very aggressive after using, verbal and foul language only; she states he is not physically abusive. Inquired if pt drinks alcohol, and she states he rarely drinks alcohol.
[2020-10-02] MEDS: HYDROcodone/acetaminophen (*CRX) 5-325 MG TABLET 1 TAB PO (18:37)
[2020-10-02 18:45] LABS: Anion Gap 5 mmol/L (8-16); Blood Urea Nitrogen 13 mg/dL (9-20); Carbon Dioxide 30 mmol/L (22-30); Chloride 99 mmol/L (98-107); Estimated CRCL calculation 123 ml/min; Estimated Glomerular Filt Rate > 60; Glucose 156 mg/dL (75-110); Potassium 3.9 mmol/L (3.4-5.0); Sodium 134 mmol/L (137-145)
[2020-10-02 20:00] VITALS: PULSE 87; RESP 16; O2SAT 99
[2020-10-02] MEDS: NICOTINE (*PBKC) 21 MG PATCH 1 PATCH TRANSDERM (20:33)
[2020-10-02 22:00] VITALS: BP 113/71; PULSE 91; RESP 16; TEMP 37.1; O2SAT 100
[2020-10-03 05:46] VITALS: BP 117/71; PULSE 78; RESP 18; TEMP 37.2; O2SAT 99
[2020-10-03 05:58] LABS: Barbiturate Screen Urine Negative (Negative); Benzodiazepines Screen Urine Negative (Negative)
[2020-10-03 06:15] LABS: Cannabinoid Screen Urine Positive (Negative); Cocaine Screen Urine Negative (Negative); Methadone Screen Urine Negative (Negative); Opiate Screen Urine Positive (Negative); Phencyclidine Screen Urine Negative (Negative)
[2020-10-03 06:33] LABS: Hematocrit 44.6 % (42.0-52.0); Hemoglobin 14.7 g/dL (14.0-18.0); Mean Corpuscular Hemoglobin 30.1 pg (26-34); Mean Corpuscular Volume 91.4 fl (80-100); Mean Platelet Volume 9.1 fl (7.4-10.4); Platelet Count Result 233 k/mm3 (150-375); Red Blood Count 4.88 M/mm3 (4.6-6.20); Red Cell Distribution Width 11.9 % (11.5-14.5); White Blood Count 9.1 K/mm3 (4.5-10.0)
[2020-10-03 06:44] LABS: Anion Gap 4 mmol/L (8-16); Blood Urea Nitrogen 12 mg/dL (9-20); Calcium 9.3 mg/dL (8.4-10.2); Carbon Dioxide 32 mmol/L (22-30); Chloride 100 mmol/L (98-107); Estimated CRCL calculation 100 ml/min; Estimated Glomerular Filt Rate > 60; Glucose 134 mg/dL (75-110); Potassium 3.9 mmol/L (3.4-5.0); Sodium 136 mmol/L (137-145)
[2020-10-03 06:46] LABS: Amphetamine Screen Urine Positive (Negative)
[2020-10-03 07:42] LABS: Glucose Point of Care 128 (65-105)
[2020-10-03 08:39] VITALS: O2SAT 93
[2020-10-03] MEDS: HYDROcodone/acetaminophen (*CRX) 5-325 MG TABLET 1 TAB PO ×2 (08:48→13:32)
[2020-10-03] MEDS: SODIUM CHLORIDE 0.9% IV 1,000 ML 75 ML IV CONT (08:50)
--- NOTE | 2020-10-03 11:49 | PM.CNGS ---
Assessment and Plan Assessment and plan (1) Abscess of right foot: Code(s): L02.611 - Cutaneous abscess of right foot Status: Acute Assessment and Plan: Right foot wound with purulent drainage coming from an opening. Due to the patient's pain, he is not able to tolerate a thorough assessment and would not tolerate any surgical intervention at the bedside. Wound culture ordered. Continue IV abx. Wound care was consulted and he refused any packing dressing changes. There is obvious purulent drainage coming from the wound and it is difficult to assess the extent of the underlying infection. Discussed treatment options with the patient, including going to the OR for incision and drainage of the right foot abscess by Dr. Zhao. Description of the procedure, risks, benefits, expected outcomes, and expected recovery were discussed with the patient in detail. He agrees to proceed with surgery. He will be added onto the OR schedule tomorrow. Thank you for allowing us to see the patient in consultation and we will continue to follow along with you. (2) Cellulitis of right foot: Code(s): L03.115 - Cellulitis of right lower limb Status: Acute Assessment and Plan: Continue IV antibiotics. See plan above. (3) Type 2 diabetes mellitus with hyperglycemia: Code(s): E11.65 - Type 2 diabetes mellitus with hyperglycemia Status: Acute Assessment and Plan: Poorly controlled. Hgb A1C 11.9. Discussed the importance of glycemic control with the patient and compliance with his diabetic regimen and diet after discharge. (4) Diabetic peripheral neuropathy: Code(s): E11.42 - Type 2 diabetes mellitus with diabetic polyneuropathy Status: Acute Assessment and Plan: Contributing to the above problems. Again encouraged establishing care with a Centerless Grinder Set Up Operator as an outpatient. (5) Polysubstance abuse: Code(s): F19.10 - Other psychoactive substance abuse, uncomplicated Status: Acute Assessment and Plan: Encouraged cessation. (6) Adult BMI 30.0-30.9 kg/sq m: Code(s): Z68.30 - Body mass index [BMI]30.0-30.9, adult Status: Acute Additional Plan I have discussed the patient's case and plan of care with Dr. Zhao. History of Present Illness Consult details Consult date: 10/03/20 Reason for consult: other (Right foot diabetic ulcer with cellulitis) Requesting physician: Jennifer Bliss, SASHA Narrative: This is a 55-year-old diabetic male with a history of polysubstance abuse who presented to the ER with complaints of right foot pain. The patient reports noticing pain in the bottom of his right foot 4 days ago. This has progressively worsened. He thought that he might have stepped on something that caused this pain, but cannot recall any specific injury. He reports also noticing some redness to his foot yesterday and decided to present to the ER. No fever or chills. Right foot x-ray showed no foreign body or evidence of osteomyelitis. He was found to have right foot cellulitis with a right foot ulcer and was admitted to the Hospitalist service. He was started on IV Imipenem. Vancomycin was not initiated due to history of acute kidney injury with Vancomycin use. The patient does report history of MRSA. Our service has been consulted for a right foot diabetic foot ulcer. He is now seen on the medical floor. He has peripheral neuropathy with numbness in his feet. The patient was instructed to see a Centerless Grinder Set Up Operator last year after having surgery on his right foot, which he did not follow-up with due to cost and insurance. He reports still having pain in his right foot. No other complaints at this time. Review of Systems Constitutional: Constitutional: Reports no additional constitutional complaints, Denies chills and Denies fever(s) Eyes: Eyes: Denies change in vision ENT: Reports system reviewed and no additional complaints, except as documented, Denies dysphagia, Denies dizzine
[2020-10-03 12:37] LABS: Glucose Point of Care 212 (65-105)
[2020-10-03] MEDS: INSULIN ASPART (*BKC) 100 UNITS/ML SUB-Q (12:54)
--- NOTE | 2020-10-03 13:24 | PM.IMPN ---
Progress Note: A&P Assessment and Plan (1) Abscess of right foot: Code(s): L02.611 - Cutaneous abscess of right foot Status: Acute Assessment and Plan: With purulent drainage and surrounding cellulitis. He is having significant pain. No leukocytosis or fever. Appreciate general surgery consultation Blood cultures pending. Wound culture ordered Continue Primaxin Per surgery recommendations, he will undergo incision and drainage of right foot abscess in the OR tomorrow with Dr. Zhao. Analgesics available as needed for pain Continue gentle IV fluids (2) Cellulitis of right foot: Code(s): L03.115 - Cellulitis of right lower limb Status: Acute Assessment and Plan: Secondary to abscess, see above (3) Type 2 diabetes mellitus with hyperglycemia: Code(s): E11.65 - Type 2 diabetes mellitus with hyperglycemia Status: Acute Assessment and Plan: A1c is 11.9. Blood sugars reviewed and have been elevated above target ranging from 150-200. Tight glycemic control is imperative for wound healing Continue Accu-Cheks, sliding scale insulin, and hypoglycemic protocol Will start him on long-acting Lantus during his inpatient stay (4) Hyponatremia: Code(s): E87.1 - Hypo-osmolality and hyponatremia Status: Acute Assessment and Plan: Sodium is 136 today. Continue to monitor BMP (5) Polysubstance abuse: Code(s): F19.10 - Other psychoactive substance abuse, uncomplicated Status: Acute Assessment and Plan: Abuse of amphetamines, opioids, and tobacco abuse. Smoking cessation is imperative and has been discussed. Continue to reinforce. Nicotine patch started at presentation Care coordination has provided resources for drug cessation Subjective Date/time seen: 10/03/20 13:24 Interval history: Date of service: 10/03/2020 Bob Webster is a 55-year-old male with a history of poorly controlled insulin-dependent type 2 diabetes mellitus and diabetic foot ulcers, polysubstance abuse including alcohol, tobacco, opioids, and amphetamines who is seen in follow-up for diabetic foot ulcer. He is feeling okay today. He endorses pain on the heel of his right foot that is very tender to palpation. He has difficulty bearing weight. He notes increased erythema but denies lymphangitic streaking, purulence, or drainage. He denies fever or chills. No nausea or vomiting. Appetite has been good. He is drinking water. His last bowel movement was yesterday and he denies diarrhea. He denies any urinary symptoms. He denies abdominal pain, cramping, or bloating. No headaches or body aches. Denies shortness of breath, cough, chest pain, or palpitations. He denies tremor, restlessness, or agitation. He feels anxious because he is going to have his wound probed and he is very upset about this and somewhat irritable. Review of Systems Review of Systems: All systems reviewed & are unremarkable except as noted in HPI and below Exam Narrative: Exam Narrative: Mr. Webster is a well-nourished, well-appearing 55-year-old male who is lying supine in bed. He appears comfortable and is in NARD. Neuro: awake, alert and oriented x4, speech clear, no focal neuro deficits noted, no tremor HEENMT: normocephalic, atraumatic, EOMI, sclerae anicteric, moist oral mucosa, tongue midline, nares patent Neck: supple, no lymphadenopathy Respiratory: clear to auscultation bilaterally, nonlabored breathing Cardio: regular rate, regular rhythm with S1-S2 Abdomen: nondistended, normoactive bowel sounds, soft, nontender to palpation, no rigidity or guarding Extremities: Bilateral lower extremities without edema, erythema, cyanosis, clubbing, or tenderness to palpation, DP pulses 2+ bilaterally Skin: Calluses on bilateral feet. Has a circumscribed callus on the plantar surface of the right midfoot that appears crusted with dark blood and purulent drainage
[2020-10-03 14:00] VITALS: BP 117/67; PULSE 79; RESP 16; TEMP 36.4; O2SAT 97
[2020-10-03] MEDS: SILVERGEL (ELTA) 45 ML 1 APPLIC TOPICAL ×2 (14:55→20:48)
--- NOTE | 2020-10-03 14:55 | PC.NURSE ---
Collection of wound culture attempted. Unable to obtain. Patient refused. General surgery aware. Wound assessed and new order medicated treatment to foot applied and wrapped. Patient tolerated well.
[2020-10-03] MEDS: NICOTINE (*PBKC) 21 MG PATCH 1 PATCH TRANSDERM (17:09)
[2020-10-03 17:19] LABS: Glucose Point of Care 152 (65-105)
--- NOTE | 2020-10-03 18:12 | WPDANESEPP ---
Anes - Eval Pre Procedure Procedure: Operation Date: 10/04/20 12:00 Proposed Procedures p Incision And Drainage Of Wound, Right Foot - Radha Zhao MD Date/Time: 10/03/20 18:12 Pre Op Diagnosis: diabetic foot ulcer Patient Data Age: 55 Gender: M Height: 6 ft 2 in Weight: 111.1 kg Last Vital Signs Temp 97.5 F L 10/03/20 14:00 Pulse 79 10/03/20 14:00 Resp 16 10/03/20 14:00 BP 117/67 10/03/20 14:00 Pulse Ox 97 10/03/20 14:00 Allergies Allergy/AdvReac Type Severity Reaction Status Date / Time vancomycin AdvReac Other Verified 10/02/20 16:36 Home Medications Medication Instructions Recorded Confirmed Type insulin lispro [Admelog SoloStar See Rx Instructions .ROUTE .COMPLEX 09/05/20 10/02/20 History U-100 Insulin] empagliflozin [Jardiance] 25 mg PO DAILY 10/02/20 10/02/20 History liraglutide [Victoza 2-Desean] 1.2 mg SUBCUT DAILY 10/02/20 10/02/20 History metformin 500 mg PO BID 10/02/20 10/02/20 History Laboratory Tests 10/02/20 10/03/20 10/03/20 18:30 05:24 05:24 WBC 9.1 K/mm3 K/mm3 (4.5-10.0) RBC 4.88 M/mm3 M/mm3 (4.6-6.20) Hgb 14.7 g/dL g/dL (14.0-18.0) Hct 44.6 % % (42.0-52.0) MCV 91.4 fl fl (80-100) MCH 30.1 pg pg (26-34) MCHC 33.0 g/dl g/dl (32-36) RDW 11.9 % % (11.5-14.5) Plt Count 233 k/mm3 k/mm3 (150-375) MPV 9.1 fl fl (7.4-10.4) Sodium 134 mmol/L L mmol/L 136 mmol/L L mmol/L (137-145) (137-145) Potassium 3.9 mmol/L mmol/L 3.9 mmol/L mmol/L (3.4-5.0) (3.4-5.0) Chloride 99 mmol/L mmol/L 100 mmol/L mmol/L (98-107) (98-107) Carbon Dioxide 30 mmol/L mmol/L 32 mmol/L H mmol/L (22-30) (22-30) Anion Gap 5 mmol/L L mmol/L 4 mmol/L L mmol/L (8-16) (8-16) BUN 13 mg/dL mg/dL 12 mg/dL mg/dL (9-20) (9-20) Creatinine 0.80 mg/dL mg/dL 1.00 mg/dL mg/dL (0.7-1.3) (0.7-1.3) Estim Creat Clear Calc 123 ml/min ml/min 100 ml/min ml/min Estimated GFR > 60 > 60 (59 - ) (59 - ) Glucose 156 mg/dL H mg/dL 134 mg/dL H mg/dL (75-110) (75-110) POC Capillary Glucose Calcium 9.0 mg/dL mg/dL 9.3 mg/dL mg/dL (8.4-10.2) (8.4-10.2) Urine Opiates Screen Urine Methadone Screen Ur Barbiturates Screen Ur Phencyclidine Scrn Ur Amphetamine Screen U Benzodiazepines Scrn Urine Cocaine Screen U Cannabinoids Screen 10/03/20 10/03/20 10/03/20 05:35 07:39 12:35 WBC RBC Hgb Hct MCV MCH MCHC RDW Plt Count MPV Sodium Potassium Chloride Carbon Dioxide Anion Gap BUN Creatinine Estim Creat Clear Calc Estimated GFR Glucose POC Capillary Glucose 128 mg/dl H mg/dl 212 mg/dl H mg/dl (65-105) (65-105) Calcium Urine Opiates Screen Positive A (Negative) Urine Methadone Screen Negative (Negative) Ur Barbiturates Screen Negative (Negative) Ur Phencyclidine Scrn Negative (Negative) Ur Amphetamine Screen Positive A (Negative) U Benzodiazepines Scrn Negative (Negative) Urine Cocaine Screen Negative (Negative) U Cannabinoids Screen Positive A (Negative) 10/03/20 17:17 WBC RBC Hgb Hct MCV MCH MCHC RDW Plt Count MPV Sodium Potassium Chloride Carbon Dioxide Anion Gap BUN Creatinine Estim Creat Clear Calc Estimated GFR Glucose POC Capillary Glucose 152 mg/dl H mg/dl (65-1
[2020-10-03 19:52] VITALS: O2SAT 97
[2020-10-03] MEDS: INSULIN GLARGINE (*BKC) 100 UNITS/ML 28 UNITS SUB-Q (20:48)
[2020-10-03] MEDS: DOXYCYCLINE HYCLATE 100 MG TABLET PO (20:48)
[2020-10-03 20:57] LABS: Glucose Point of Care 232 (65-105)
[2020-10-03 21:41] VITALS: BP 104/71; PULSE 83; RESP 18; TEMP 37.1; O2SAT 100
[2020-10-04] VITALS (12 sets, daily range): BP systolic 97–124; BP diastolic 57–80; PULSE 73–105; RESP 16–20; TEMP 36.2–36.8; O2SAT 96–100
[2020-10-04] MEDS: SODIUM CHLORIDE 0.9% IV 1,000 ML 75 ML IV CONT ×2 (05:42→16:46)
[2020-10-04 06:01] LABS: Hematocrit 44.5 % (42.0-52.0); Mean Corpuscular HGB Conc 33.7 g/dl (32-36); Mean Corpuscular Hemoglobin 29.5 pg (26-34); Mean Corpuscular Volume 87.4 fl (80-100); Mean Platelet Volume 8.7 fl (7.4-10.4); Platelet Count Result 260 k/mm3 (150-375); Red Blood Count 5.09 M/mm3 (4.6-6.20); Red Cell Distribution Width 11.4 % (11.5-14.5); White Blood Count 8.4 K/mm3 (4.5-10.0)
[2020-10-04 06:50] LABS: Anion Gap 4 mmol/L (8-16); Blood Urea Nitrogen 13 mg/dL (9-20); CRP 19.5 mg/dL (<1.0); Calcium 9.4 mg/dL (8.4-10.2); Carbon Dioxide 28 mmol/L (22-30); Chloride 103 mmol/L (98-107); Estimated CRCL calculation 139 ml/min; Estimated Glomerular Filt Rate > 60; Glucose 136 mg/dL (75-110); Sodium 135 mmol/L (137-145)
--- NOTE | 2020-10-04 08:18 | PM.IMPN ---
Progress Note: A&P Assessment and Plan (1) Abscess of right foot: Code(s): L02.611 - Cutaneous abscess of right foot Status: Acute Assessment and Plan: With purulent drainage and surrounding cellulitis. No leukocytosis or fever. Elevated CRP. Appreciate general surgery consultation Blood cultures pending. Wound culture ordered but patient refused. Continue IV Primaxin and PO Vancomycin Per surgery recommendations, he will undergo incision and drainage of right foot abscess in the OR this afternoon with Dr. Zhao. NPO for surgery. Analgesics available as needed for pain Continue gentle IV fluids while NPO. (2) Cellulitis of right foot: Code(s): L03.115 - Cellulitis of right lower limb Status: Acute Assessment and Plan: Secondary to abscess, see above (3) Type 2 diabetes mellitus with hyperglycemia: Code(s): E11.65 - Type 2 diabetes mellitus with hyperglycemia Status: Acute Assessment and Plan: A1c is 11.9. Blood sugars reviewed and have been elevated above target ranging from 150-200. Better controlled today in the 130s. Tight glycemic control is imperative for wound healing Continue Accu-Cheks, sliding scale insulin, and hypoglycemic protocol Will start him on long-acting Lantus during his inpatient stay Home oral agents are on hold (4) Hyponatremia: Code(s): E87.1 - Hypo-osmolality and hyponatremia Status: Acute Assessment and Plan: Sodium is 135 today. Continue to monitor BMP (5) Polysubstance abuse: Code(s): F19.10 - Other psychoactive substance abuse, uncomplicated Status: Acute Assessment and Plan: Abuse of amphetamines, opioids, and tobacco abuse. Cessation is imperative and has been discussed. Continue to reinforce. Nicotine patch started at presentation Subjective Date/time seen: 10/04/20 08:18 Interval history: Date of service: 10/04/2020 Bob Webster is a 55-year-old male with a history of poorly controlled insulin-dependent type 2 diabetes mellitus and diabetic foot ulcers, polysubstance abuse including alcohol, tobacco, opioids, and amphetamines who is seen in follow-up for diabetic foot ulcer. He states his foot feels the same. His pain is 5/10. He denies increased swelling, redness, drainage, or lymphangitic streaking. He denies fever, chills, nausea, vomiting, diarrhea, dizziness, or lightheadedness. He has been NPO this morning for surgery. He denies any urinary symptoms. No shortness of breath. He is very irritable today and unwilling to answer any further questions. He is angry that he has to wait till noon for his surgery. He is cursing. He is unhappy that he has been in the hospital for this duration of time and states that he is leaving after surgery no matter what. Review of Systems Review of Systems: All systems reviewed & are unremarkable except as noted in HPI and below Exam Narrative: Exam Narrative: Mr. Webster is a well-nourished, well-appearing 55-year-old male who is lying supine in bed. He appears comfortable and is in NARD. Neuro: awake, alert and oriented x4, speech clear, no focal neuro deficits noted, no tremor HEENMT: normocephalic, atraumatic, EOMI, sclerae anicteric, moist oral mucosa, tongue midline, nares patent Neck: supple, no lymphadenopathy Respiratory: clear to auscultation bilaterally, nonlabored breathing Cardio: regular rate, regular rhythm with S1-S2 Abdomen: nondistended, normoactive bowel sounds, soft, nontender to palpation, no rigidity or guarding Extremities: Bilateral lower extremities without edema, erythema, cyanosis, clubbing, or tenderness to palpation, DP pulses 2+ bilaterally Skin: Calluses on bilateral feet. Has a circumscribed callus on the plantar surface of the right midfoot that appears crusted with dark blood. There is a circular area of surrounding erythema that is tender to palpation and very slightly warm a
[2020-10-04 08:20] LABS: Glucose Point of Care 134 (65-105)
[2020-10-04] MEDS: DOXYCYCLINE HYCLATE 100 MG TABLET PO ×2 (08:35→21:15)
[2020-10-04] MEDS: SILVERGEL (ELTA) 45 ML 1 APPLIC TOPICAL (08:35)
--- NOTE | 2020-10-04 11:14 | PC.NURSE ---
To OR per bed, IV NS fluids stopped and capped. 20 to Right AC patent. Report and surgical SBAR given to GELY Troy.
--- NOTE | 2020-10-04 11:25 | WPDANESEFPP ---
Anes - Eval Final PreProcedure Day of Procedure 10/04/20 11:25 Patient weight: obese Heart: regular rate and rhythm Lungs: clear to auscultation and normal air movement Airway: Mallampati scale Neurological: alert and oriented Last oral intake: >/= 8 hours ASA classification: III Emergent: no Anesthetic plan: proceed Anesthesia type and monitoring: general GIVS and standard monitoring Informed Consent: The patient's anesthetic plan and its attendant risks and benefits were discussed with the patient/family/POA. Questions were solicited and answers provided to the satisfaction of the patient/family/POA.
[2020-10-04] MEDS: LACTATED RINGERS 1,000 ML 30 ML IV CONT (11:30)
--- NOTE | 2020-10-04 12:17 | WPDHPUPDATE1 ---
History and Physical Update Update Date/Time: 10/04/20 12:17 History and Physical has been reviewed, including an updated exam of the patient. There are NO changes in the patient's condition. Risks, benefits, and alternatives have been discussed and questions answered. Patient agrees to proceed with procedure.
[2020-10-04] MEDS: BUPIVACAINE/EPINEPHRINE 0.5% 30 ML VIAL INFILTRATE (13:28)
[2020-10-04 13:32] LABS: Glucose Point of Care 123 (65-105)
--- NOTE | 2020-10-04 14:49 | PM.PROC ---
Procedure Note - Detailed Date of procedure: 10/04/20 Pre-op diagnosis: diabetic foot ulcer Post-op diagnosis: same Procedure performed: complex incision and drainage right diabetic foot ulcer measuring 5x4 cm Description of procedure: The patient was taken to the operating room and placed in the supine position. After adequate induction of mac anesthesia, the patient is prepped and draped in the normal sterile fashion. A time-out was then done to verify the patient's identity, as well as the procedure being performed. There was noted to be a punctate opening on the lateral plantar surface of the patient's right foot. The overlying skin was noted to have some necrosis. I went ahead and debrided the necrotic tissue. The opening was noted to be approximately 1 x 1 cm. I then used a hemostat to bluntly dissect around this cavity. A moderate amount of purulent drainage was noted. Once the cavity was completely opened and explored and measured approximately 5 x 4 cm. It not encounter any bone during my dissection. This infection was largely located within the subcutaneous tissue. Once the area was completely opened and drained, I went ahead and washed this area out. The placed half-inch iodoform packing into the wound to keep the area open and draining. A sterile dressing was then placed on wound. The patient tolerated the procedure well and was alert and awake in the operating room postoperative. He will be transferred to the recovery room in stable condition. Anesthesia: MAC and local Surgeon: Radha Zhao MD Estimated blood loss (mL): 5 Drains: No Packing: Yes Pathology: none sent Complications: No immediate complications Condition: stable Disposition: PACU Findings: 5 x 4 cm right diabetic foot ulcer
--- NOTE | 2020-10-04 15:01 | PC.NURSE ---
Addendum entered by Ximena Jordan RN 10/04/20 15:04: Patient educated on diet orders and assisted with ordering tray. Alert and oriented. Denies discomfort when asked. Orientated to location of call light and reminded of its use. Voiced understanding. Original Note: Returned from OR per bed at 1450. Report received from Pauline.
[2020-10-04 16:29] LABS: Glucose Point of Care 83 (65-105)
[2020-10-04] MEDS: HYDROcodone/acetaminophen (*CRX) 5-325 MG TABLET 1 TAB PO (16:40)
[2020-10-04] MEDS: NICOTINE (*PBKC) 21 MG PATCH 1 PATCH TRANSDERM (17:57)
[2020-10-04] MEDS: INSULIN GLARGINE (*BKC) 100 UNITS/ML 28 UNITS SUB-Q (21:15)
[2020-10-04 21:25] LABS: Glucose Point of Care 207 (65-105)
[2020-10-05] VITALS: BP 122/71; PULSE 94; RESP 18; TEMP 36.8; O2SAT 100
[2020-10-05] MEDS: SODIUM CHLORIDE 0.9% IV 1,000 ML 75 ML IV CONT (05:18)
[2020-10-05 05:58] LABS: Hematocrit 42.7 % (42.0-52.0); Hemoglobin 14.4 g/dL (14.0-18.0); Mean Corpuscular HGB Conc 33.7 g/dl (32-36); Mean Corpuscular Hemoglobin 30.1 pg (26-34); Mean Corpuscular Volume 89.1 fl (80-100); Mean Platelet Volume 8.8 fl (7.4-10.4); Platelet Count Result 267 k/mm3 (150-375); Red Blood Count 4.79 M/mm3 (4.6-6.20); Red Cell Distribution Width 11.5 % (11.5-14.5); White Blood Count 9.2 K/mm3 (4.5-10.0)
[2020-10-05 06:00] VITALS: BP 106/71; PULSE 82; RESP 16; TEMP 36.2; O2SAT 98
[2020-10-05 06:45] LABS: Potassium 3.9 mmol/L (3.4-5.0)
[2020-10-05 06:51] LABS: Anion Gap 5 mmol/L (8-16); Blood Urea Nitrogen 13 mg/dL (9-20); Calcium 9.2 mg/dL (8.4-10.2); Carbon Dioxide 27 mmol/L (22-30); Chloride 101 mmol/L (98-107); Estimated CRCL calculation 139 ml/min; Estimated Glomerular Filt Rate > 60; Glucose 153 mg/dL (75-110); Sodium 133 mmol/L (137-145)
[2020-10-05 07:11] LABS: CRP 18.3 mg/dL (<1.0)
[2020-10-05] MEDS: DOXYCYCLINE HYCLATE 100 MG TABLET PO (08:49)
--- NOTE | 2020-10-05 09:32 | WPDANESPN ---
Anes - Prog Note Post-Op Date/Time: 10/05/20 09:32 Cardiovascular status: normal Respiratory status: normal Airway patency: baseline Mental status: baseline Post-Op hydration status: normal Vital Signs: Last Vital Signs Temp 36.2 C L 10/05/20 06:00 Pulse 82 10/05/20 06:00 Resp 16 10/05/20 06:00 BP 106/71 10/05/20 06:00 Pulse Ox 98 10/05/20 06:00 Pain Score (VAS): 07/13 I/O: Intake & Output 10/04/20 10/05/20 10/05/20 23:59 07:59 15:59 Intake Total 1590 1500 Output Total 720 1500 Balance 870 0 Laboratory Tests 10/05/20 05:29 10/05/20 05:29 10/04/20 10/04/20 10/04/20 13:29 16:27 21:17 WBC RBC Hgb Hct MCV MCH MCHC RDW Plt Count MPV Sodium Potassium Chloride Carbon Dioxide Anion Gap BUN Creatinine Estim Creat Clear Calc Estimated GFR Glucose POC Capillary Glucose 123 H 83 207 H Calcium C-Reactive Protein 10/05/20 10/05/20 05:29 05:29 WBC 9.2 RBC 4.79 Hgb 14.4 Hct 42.7 MCV 89.1 MCH 30.1 MCHC 33.7 RDW 11.5 Plt Count 267 MPV 8.8 Sodium 133 L Potassium 3.9 Chloride 101 Carbon Dioxide 27 Anion Gap 5 L BUN 13 Creatinine 0.70 Estim Creat Clear Calc 139 Estimated GFR > 60 Glucose 153 H POC Capillary Glucose Calcium 9.2 C-Reactive Protein 18.3 H Post-procedural complaints: none Patient Feedback: Patient satisfied with anesthetic care.
[2020-10-05 10:05] LABS: Glucose Point of Care 194 (65-105)
[2020-10-05] MEDS: SILVERGEL (ELTA) 45 ML 1 APPLIC TOPICAL (10:20)
--- NOTE | 2020-10-05 10:38 | PM.PNGS ---
Progress Note: A&P Assessment and Plan (1) Abscess of right foot: Code(s): L02.611 - Cutaneous abscess of right foot Status: Acute Assessment and Plan: POD#1 and wound looks good today, adequately drained with no purulent drainage noted today. Okay from a surgical standpoint to discharge patient home today. I attempted to discuss wound care and plans for discharge, but patient was uncooperative and would not answer my questions. I instructed the patient that he will need daily dressing changes at home with 1/4 iodoform gauze packing and cover with gauze and kerlex wrap. He lives with his and I asked if she would be able to help with dressing changes, he would not answer. I tried to discuss the option of home health and again he did not answer. I spoke with care coordination to try and help with discharge planning. Will order a post-op shoe to help with offloading and he should be heel-touch weight bearing for transfers only. I discussed this with the patient. Follow-up in the wound clinic in 1-2 weeks. (2) Cellulitis of right foot: Code(s): L03.115 - Cellulitis of right lower limb Status: Acute Assessment and Plan: Continue abx per Hospitalist. Would recommend oral abx that provides coverage for MRSA due to his history. (3) Type 2 diabetes mellitus with hyperglycemia: Code(s): E11.65 - Type 2 diabetes mellitus with hyperglycemia Status: Acute Assessment and Plan: Poorly controlled. Hgb A1C 11.9. Discussed the importance of glycemic control with the patient and compliance with his diabetic regimen and diet after discharge. (4) Diabetic peripheral neuropathy: Code(s): E11.42 - Type 2 diabetes mellitus with diabetic polyneuropathy Status: Acute Assessment and Plan: Recommended establishing care with Podiatry as recommended when seen last year. Additional Plan I have discussed the patient's case and plan of care with Dr. Zhao. Subjective Subjective Date/Time Seen: 10/05/20 10:38 Post Op day: 1 (complex I&D right foot diabetic ulcer) Patient reports: feels better, pain is less, tolerating a regular diet and afebrile Interval history: Patient reports pain is better today in his right foot. No other complaints or concerns. Answers a few questions regarding his foot wound, but then when I began asking about wound care plans for going home, the patient became uncooperative and stopped answering any questions. Review of Systems Review of Systems: All systems reviewed & are unremarkable except as noted in HPI and below Constitutional: Constitutional: Denies fever(s) Exam Const: General: comfortable and no acute distress Orientation/consciousness: patient oriented x3 Skin: Other: Dressing removed from right foot and there is about a 1 cm x 1 cm opening to the plantar aspect of the right foot, packing removed. No purulent drainage. Still some minimal localized cellulitis on the plantar aspect of the foot. Bilateral feet - normal ROM, sensation decreased, strong DP and PT pulses. Neuro: General: moves all extremities and no focal motor deficits Extrem: General: no clubbing, cyanosis or edema Right lower extremity: full ROM, normal capillary refill and foot (See skin assessment above) Details: warmth and vascular exam Details: dorsalis pedis pulse present and posterior tibial pulse present; no edema Psych: Attitude: not cooperative and Refuses to answer (attititude/behavior) Insight: Good insight present (Psych) Judgement: Fair judgement present (Psych) Objective Data Vital Signs Vital Signs: Vital Signs - 24 hr 10/04/20 12:02 10/04/20 13:23 10/04/20 13:35 Temperature 97.1 F L 98.2 F Pulse Rate 105 H 83 76 Respiratory Rate 16 20 18 Blood Pressure 110/80 98/69 L 109/70 Pulse Oximetry 98 96 97 10/04/20 13:50 10/04/20 14:05 10/04/20 14:20 Temperature Pulse Rate 73 73 73 Respiratory Rate 18 18 16 Blood Pressure 114/77 110/68 116/70 Pulse Oxi
[2020-10-05] MEDS: INSULIN ASPART (*BKC) 100 UNITS/ML SUB-Q (12:12)
[2020-10-05 12:45] LABS: Glucose Point of Care 238 (65-105)
[2020-10-05 14:00] VITALS: BP 102/55; PULSE 78; RESP 20; TEMP 36.3; O2SAT 99
--- NOTE | 2020-10-05 15:05 | PC.NURSE ---
Patient and refused return demonstration of right foot wound dressing change. states they have some supplies at home and she knows what to do . Patient refused to wear post op shoe on right foot.
--- NOTE | 2020-10-05 15:23 | PM.DS ---
DS: Admitting Diagnosis Admitting Diagnosis Admitting Diagnosis: left foot wound DS: Discharge Diagnosis Discharge Diagnosis (1) Abscess of right foot: Code(s): L02.611 - Cutaneous abscess of right foot Status: Acute Assessment and Plan: With purulent drainage and surrounding cellulitis. No leukocytosis or fever. Elevated CRP. Appreciate general surgery consultation Blood cultures pending. Wound culture ordered but patient refused. Continue IV Primaxin and PO doxy GS followed, recommendations apprecaited S/p incision and drainage of right foot abscess in the OR this afternoon with Dr. Zhao Analgesics available as needed for pain (2) Cellulitis of right foot: Code(s): L03.115 - Cellulitis of right lower limb Status: Acute Assessment and Plan: Secondary to abscess, see above (3) Type 2 diabetes mellitus with hyperglycemia: Code(s): E11.65 - Type 2 diabetes mellitus with hyperglycemia Status: Acute Assessment and Plan: A1c is 11.9. Blood sugars reviewed and have been elevated above target ranging from 150-200. Better controlled today in the 130s. Tight glycemic control is imperative for wound healing Continue Accu-Cheks, sliding scale insulin, and hypoglycemic protocol Will start him on long-acting Lantus during his inpatient stay Home oral agents are on hold (4) Hyponatremia: Code(s): E87.1 - Hypo-osmolality and hyponatremia Status: Acute Assessment and Plan: Sodium is 135 today. Continue to monitor BMP (5) Polysubstance abuse: Code(s): F19.10 - Other psychoactive substance abuse, uncomplicated Status: Acute Assessment and Plan: Abuse of amphetamines, opioids, and tobacco abuse. Cessation is imperative and has been discussed. Continue to reinforce. Nicotine patch started at presentation DS: Summary Hospital Course Hospital Course: 55-year-old male smoker with history of poorly controlled diabetes, peripheral neuropathy, and history of diabetic foot ulcers who presented to the emergency department for evaluation of a right foot wound that he 1st noticed a couple of days [employer]. He admits to having a small chronic callus at that site, however several prior, he noticed some faint erythema starting to creep up on to the inside arch of his foot and he is also having discomfort with weight-bearing when typically he does not due to his neuropathy. Given his history of ulcers requiring debridement he came in for evaluation and is being admitted for cellulitis. He was treated with IV antibiotics and has now transition to oral. He underwent I & D per Dr. Zhao and is progressing well. He is stable and discharge home with self care. Status at Discharge Functional status at discharge: independent ambulation Time Spent with Patient Time attestation: Total time spent providing and/or coordinating discharge services: Time spent: Greater than 30 minutes Exam Narrative: Exam Narrative: Mr. Webster is a well-nourished, well-appearing 55-year-old male who is lying supine in bed. He appears comfortable and is in NARD. Neuro: awake, alert and oriented x4, speech clear, no focal neuro deficits noted, no tremor HEENMT: normocephalic, atraumatic, EOMI, sclerae anicteric, moist oral mucosa, tongue midline, nares patent Neck: supple, no lymphadenopathy Respiratory: clear to auscultation bilaterally, nonlabored breathing Cardio: regular rate, regular rhythm with S1-S2 Abdomen: nondistended, normoactive bowel sounds, soft, nontender to palpation, no rigidity or guarding Extremities: Bilateral lower extremities without edema, erythema, cyanosis, clubbing, or tenderness to palpation, DP pulses 2+ bilaterally Skin: Calluses on bilateral feet. Has a circumscribed callus on the plantar surface of the right midfoot that appears crusted with dark blood. There is a circular area of surrounding erythema that is tender to pal
--- NOTE | 2020-10-05 15:30 | PC.NURSE ---
Patients gave name of [facility] [phone]. Dr. Ramos office called and spoke to staff and gave name and fax number.
== END 2020-10-05 15:10 | disposition home or self-care (01) | DRG 364 ==
LOC: ANHED 14:50 → ANH3MEDSUR 17:00
PROVIDERS: Emergency Medicine; Physician Assistant; Surgery; Admitting Provider Internal Medicine; Emergency Provider Family Medicine; PCP Internal Medicine Infectious Disease; Visit Provider Physician Assistant
PROC: 0J9Q0ZZ Drainage of Right Foot Subcutaneous Tissue and Fascia, Open Approach (ICD-10-PCS; principal; 2020-10-04 12:00)
DX: L03.115 Cellulitis of right lower limb (principal); L02.611 Cutaneous abscess of right foot; E11.621 Type 2 diabetes mellitus with foot ulcer; L97.519 Non-pressure chronic ulcer of other part of right foot with unspecified severity; E11.65 Type 2 diabetes mellitus with hyperglycemia; E11.42 Type 2 diabetes mellitus with diabetic polyneuropathy; E87.1 Hypo-osmolality and hyponatremia; F19.10 Other psychoactive substance abuse, uncomplicated; F17.210 Nicotine dependence, cigarettes, uncomplicated; I10 Essential (primary) hypertension; E78.00 Pure hypercholesterolemia, unspecified; E66.9 Obesity, unspecified; Z68.30 Body mass index [BMI] 30.0-30.9, adult; Z79.4 Long term (current) use of insulin; Z86.14 Personal history of Methicillin resistant Staphylococcus aureus infection; Z88.3 Allergy status to other anti-infective agents
CPT/HCPCS: 36415; 73630; 80048; 80053; 80307; 82948; 83036; 83605; 83735; 85025; 85027; 86140; 87040; 96365; 99285; A9270; J0743; J1815; J2250; J2405; J2704; J7030; J7120

== ENCOUNTER 2020-11-09 07:24 | Outpatient (RCR) | payer BC, SELFPAY ==
[2020-10-19 09:00] VITALS: BMI 30.9
--- NOTE | 2020-10-19 11:04 | WPDWOUNDNOTE ---
Wound Care Note Date/Time: 10/19/20 11:04 Pt reports slow healing of R foot ulcer. Pt reports area seems to be smaller but still being packed. Pt reports no pain other than dressing changes. Pt reports minimal drainage. Assessment and Plan Assessment and plan (1) Diabetic foot ulcer: Code(s): E11.621 - Type 2 diabetes mellitus with foot ulcer; L97.509 - Non-pressure chronic ulcer of other part of unspecified foot with unspecified severity Status: Acute Assessment and Plan: debride callous, cont local wound care, f/u 2-3 wks Review of Systems Review of Systems: All systems reviewed & are unremarkable except as noted in HPI and below Exam Const: General: cooperative, comfortable and no acute distress Resp: Effort & Inspection: normal respiratory effort Auscultation: clear to auscultation bilaterally Cardio: Rate: regular rate Rhythm: regular rhythm GI: Inspection: normal to inspection GI Palp: Yes Soft to palpation and No Tenderness to palpation present (GI) Skin: Other: R plantar surfance lat foot - .3 x .3 x 2 cm opening, minimal thick serous drainage, no s/s active infection, callous formation around wound
--- NOTE | 2020-11-09 09:33 | P.PNWOUND_ITS ---
Wound Care Note Date/Time: 11/09/20 09:33 feels good, reports wound seems to be healing well, reports minimal residual thin yellowish drainage Assessment and Plan Assessment and plan (1) Diabetic foot ulcer: Code(s): E11.621 - Type 2 diabetes mellitus with foot ulcer; L97.509 - Non-pressure chronic ulcer of other part of unspecified foot with unspecified severity Status: Acute Assessment and Plan: healing nicely, cont local wound care, f/u 6 wks (2) Type 2 diabetes mellitus: Code(s): E11.9 - Type 2 diabetes mellitus without complications Status: Acute Assessment and Plan: emphasized tight bs control Review of Systems Review of Systems: All systems reviewed & are unremarkable except as noted in HPI and below Exam Const: General: cooperative, comfortable and no acute distress Orientat ion/consciousness: patient oriented x3 Resp: Auscultation: clear to auscultation bilaterally Cardio: Rate: regular rate Rhythm: regular rhythm Skin: General skin exam: normal color and no rashes or lesions noted Neuro: General: patient oriented x3 Extrem: Other: R foot plantar ulcer - now measuring .2x.2x1.5 cm, no s/s infection, minimal serous drainage
--- NOTE | 2020-12-21 09:36 | PCWOUND ---
WOCN NOTE patient did not show up for scheduled 914 appointment. No call was made to cancel or reschedule.
== END 2021-01-02 08:17 | disposition home or self-care (01) ==
LOC: ANHWOC 07:24
PROVIDERS: PCP Internal Medicine Infectious Disease; Visit Provider Surgery
DX: E11.621 Type 2 diabetes mellitus with foot ulcer (principal); L97.519 Non-pressure chronic ulcer of other part of right foot with unspecified severity
CPT/HCPCS: 99212; 99213; A9270; G0463

== ENCOUNTER 2020-12-05 13:14 | Emergency (ER) | payer BC, SELFPAY ==
[2020-12-05 14:05] VITALS: BP 135/73; PULSE 85; RESP 16; TEMP 36.6; O2SAT 99
--- NOTE | 2020-12-05 15:37 | PC.NURSE ---
1533 pt ambulated out of ED with steady gait.
== END 2020-12-05 15:33 | disposition left against medical advice (07) ==
PROVIDERS: PCP Internal Medicine Infectious Disease
DX: Z48.01 Encounter for change or removal of surgical wound dressing (principal)
CPT/HCPCS: 99199

== ENCOUNTER 2021-04-17 12:56 | Observation (INO) | payer BC, SELFPAY ==
--- NOTE | ~2021-04-17 | XR_ITS ---
XR foot RT min 3V DATE: 04/17/2021 15:02 INDICATION: Acute redness, swelling. Ulcer. Diabetes. TECHNIQUE: 4 views COMPARISON: None FINDINGS: There is prominent plantar and posterior calcaneal enthesopathy. No fracture or dislocation, periosteal reaction or bone destruction. IMPRESSION: Prominent plantar and posterior calcaneal enthesopathy No periosteal reaction or bone destruction Reviewed, dictated and finalized at location A. [employer]
[2021-04-17 13:15] VITALS: BP 124/69; PULSE 97; RESP 18; TEMP 36.2; O2SAT 98
--- NOTE | 2021-04-17 14:57 | PC.NURSE ---
pt admits to being non compliant with meds. last fill date in september and october. states i cant remember
[2021-04-17 15:03] LABS: Basophils Percent Auto 0.3 % (0.2-1.2); Eosinophils Absolute Auto 0.1 K/mm3 (0-0.3); Eosinophils Percent Auto 0.9 % (0-4.4); Hematocrit 45.4 % (42.0-52.0); Hemoglobin 15.8 g/dL (14.0-18.0); Immature Granulocyte Absolute 0.04 K/mm3 (0.00-0.031); Immature Granulocyte Percent A 0.4 % (0-0.5); Lymphocytes Absolute Auto 1.44 K/mm3 (0.9-3.2); Lymphocytes Percent Auto 14.3 % (18.3-44.2); Mean Corpuscular HGB Conc 34.8 g/dl (32-36); Mean Corpuscular Hemoglobin 31.5 pg (26-34); Mean Corpuscular Volume 90.6 fl (80-100); Mean Platelet Volume 8.5 fl (7.4-10.4); Monocytes Absolute Auto 0.8 K/mm3 (0.1-0.6); Monocytes Percent Auto 7.4 % (2.6-8.5); Neutrophils Absolute Auto 7.7 K/mm3 (1.3-6.7); Neutrophils Percent Auto 76.7 % (45.5-73.1); Platelet Count Result 192 k/mm3 (150-375); Red Blood Count 5.01 M/mm3 (4.6-6.20); Red Cell Distribution Width 12.7 % (11.5-14.5); White Blood Count 10.1 K/mm3 (4.5-10.0)
[2021-04-17 15:13] LABS: Lactic Acid Reflex 1.2 mmol/L (0.7-2.1)
[2021-04-17 15:14] LABS: Alanine Aminotransferase 22 U/L (4-50); Albumin Level 4.4 g/dL (3.5-5.1); Alkaline Phosphatase 97 U/L (38-126); Anion Gap 6 mmol/L (8-16); Aspartate Amino Transferase 25 U/L (17-59); Bilirubin,Total 0.8 mg/dL (0.2-1.3); Blood Urea Nitrogen 21 mg/dL (9-20); Calcium 9.8 mg/dL (8.4-10.2); Carbon Dioxide 28 mmol/L (22-30); Chloride 99 mmol/L (98-107); Estimated CRCL calculation 123 ml/min; Estimated Glomerular Filt Rate > 60; Glucose 309 mg/dL (65-110); Potassium 4.5 mmol/L (3.4-5.0); Sodium 133 mmol/L (137-145)
--- NOTE | 2021-04-17 16:27 | ED.GENADULT ---
HPI - General Adult General Chief complaint: Wound/Laceration <Mark Flores PA-C - Last Filed: 04/17/21 20:14> Stated complaint: ulcer on foot <Mark Flores PA-C - Last Filed: 04/17/21 20:14> Time Seen by Provider: 04/17/21 14:27 <Mark Flores PA-C - Last Filed: 04/17/21 20:14> Source: patient <Mark Flores PA-C - Last Filed: 04/17/21 20:14> Mode of arrival: ambulatory <SASHA Dominguez Last Filed: 04/17/21 20:14> Limitations: no limitations <SASHA Dominguez Last Filed: 04/17/21 20:14> History of Present Illness HPI narrative: Patient with a history of diabetes is a 55-year-old male with chief complaint of swelling and redness to his right foot but they noticed yesterday. Patient reports that he had an ulcer to the right plantar aspect of his right foot however it has callused over for many months. He reports yesterday noticing redness and swelling to the dorsal aspect of his right foot. He reports that he has neuropathy so there is minimal pain. He denies fever, chills, nausea, vomiting, diarrhea or any other symptoms. <Mark Flores PA-C - Last Filed: 04/17/21 20:14> Related Data Allergies/adverse reactions: Allergies Allergy/AdvReac Type Severity Reaction Status Date / Time vancomycin AdvReac Other Verified 04/17/21 21:59 <Mark Flores PA-C - Last Filed: 04/17/21 20:14> Review of Systems Review of Systems: CONSTITUTIONAL: Denies fever, chills, or sweats. EYES: Denies visual changes, redness, or discharge. ENT: Denies rhinorrhea, congestion, sore throat, or otalgia. CARDIOVASCULAR: Denies chest pain, palpitations, or edema. RESPIRATORY: Denies cough or dyspnea. GASTROINTESTINAL: Denies abdominal pain, nausea, vomiting, or diarrhea. GENITOURINARY: Denies dysuria or hematuria. SKIN: Reports redness and swelling of right foot denies rash or itching. MUSCULOSKELETAL: Denies back pain, joint pain, or myalgia. NEUROLOGIC: Denies headache, numbness, dizziness, or weakness. PSYCHIATRIC: Denies anxiety or depression. <Mark Flores PA-C - Last Filed: 04/17/21 20:14> [facility] Past Medical History Medical History: Medical History (Updated 04/18/21 @ 11:35 by Sherri Bonds PA-C) Abscess of right foot (10/2020) Amphetamine abuse Patient is vague as to how often he uses. Diabetic foot ulcers Diabetic peripheral neuropathy History of MRSA infection Hypercholesterolemia Obesity Polysubstance abuse Including methamphetamines and marijuana. Tobacco dependence Type 2 diabetes mellitus <Mark Flores PA-C - Last Filed: 04/17/21 20:14> Surgical History Surgical History: Surgical History (Updated 04/17/21 @ 22:43 by Jennifer Bliss PA-C) History of carpal tunnel release (~09/07/20) Left-sided per Dr. Escobedo. History of colonoscopy (~10/2008) Negative aside from internal hemorrhoidal tissue per Dr. Damico. History of incision and drainage (10/04/20) Complex incision and drainage of right diabetic foot ulcer per Dr. Zhao. Status post debridement (~12/21/19) Excisional debridement of skin, subcutaneous tissue, and muscle of a 4 cm2 ulcer of the plantar surface of the right foot with removal foreign body under fluoroscopy per Dr. Raymundo. <Mark Flores PA-C - Last Filed: 04/17/21 20:14> Family History Family History: Family History Other Carcinoma of colon Diabetes mellitus <Mark Flores PA-C - Last Filed: 04/17/21 20:14> Social History Social History: Social History (Updated 04/17/21 @ 22:44 by Jennifer Bliss PA-C) Social History: Surrogate decision maker: Maxwell Webster, spouse. Code status: Full code. Smoking packs per day: 0.5 Smoking cigarettes per day: 10.0 Years smoked: 20 Smoking pack-years: 10.00 Smoking status: Current every day smoker Tobacco type: cigarettes Alcohol intake: current Alcohol use details: Marlene
[2021-04-17] MEDS: INSULIN HUMAN REGULAR (*BKC) 100 UNITS/ML SUB-Q (16:50)
[2021-04-17] MEDS: SODIUM CHLORIDE 0.9% IV 1,000 ML 999 ML IV CONT (16:50)
--- NOTE | 2021-04-17 17:15 | PM.IMHP ---
H&P: HPI History of Present Illness Date/Time: 04/17/21 17:15 Chief Complaint: Right foot wound. Narrative: This is a 55-year-old male smoker with history of poorly controlled diabetes, peripheral neuropathy, diabetic foot ulcers, and MRSA who presented to the emergency department for evaluation of a right foot wound that he 1st noticed a couple of days ago. He has had a diabetic foot ulcer for quite some time which was previously debrided. Per patient report, the wound healed well however he still does have calluses at that site. Two days ago the area seemed a bit tender despite his neuropathy and yesterday he noticed redness and swelling on the outside and middle part of the right foot. Foot x-ray done in the emergency department showed no signs of osteomyelitis or gas in the area but clinically he has cellulitis and he is being admitted in this setting. He has not noticed any open wounds or drainage. He denies fever, chills, sweats, nausea, and vomiting. Review of Systems Review of Systems: Twelve systems were reviewed. No cold or flu symptoms. He denies chest pain shortness of breath. No cough. Occasional blurry vision when his glucose is high. He admits that diabetes is not well controlled. Except as documented, all other systems were reviewed and are negative. [facility] Past Medical History Medical History (Updated 04/17/21 @ 22:48 by Jenniefr Bliss PA-C) Abscess of right foot (10/2020) Amphetamine abuse Patient is vague as to how often he uses. Diabetic foot ulcers Diabetic peripheral neuropathy History of MRSA infection Hypercholesterolemia Obesity Polysubstance abuse Including methamphetamines and marijuana. Tobacco dependence Type 2 diabetes mellitus Surgical History Surgical History (Updated 04/17/21 @ 22:43 by Jennifer Bliss PA-C) History of carpal tunnel release (~09/07/20) Left-sided per Dr. Escobedo. History of colonoscopy (~10/2008) Negative aside from internal hemorrhoidal tissue per Dr. Damico. History of incision and drainage (10/04/20) Complex incision and drainage of right diabetic foot ulcer per Dr. Zhao. Status post debridement (~12/21/19) Excisional debridement of skin, subcutaneous tissue, and muscle of a 4 cm2 ulcer of the plantar surface of the right foot with removal foreign body under fluoroscopy per Dr. Raymundo. Family History Family History Other Carcinoma of colon Diabetes mellitus Social History Social History (Updated 04/17/21 @ 22:44 by Jennifer Bliss PA-C) Social History: Surrogate decision maker: Maxwell Webster, spouse. Code status: Full code. Smoking packs per day: 0.5 Smoking cigarettes per day: 10.0 Years smoked: 20 Smoking pack-years: 10.00 Smoking status: Current every day smoker Tobacco type: cigarettes Alcohol intake: current Alcohol use details: Drinks several alcoholic beverages a month. Substance use: current Substance use type: marijuana Other substance usage details: Previous history of methamphetamine use. Additional living arrangements comments: Lives in [place] with his spouse. Additional occupation/education comments: Unemployed. Meds Home Medications and Allergies Home Medications Medication Instructions Recorded Confirmed Type No Home Medications 04/17/21 04/17/21 History Allergies Allergy/AdvReac Type Severity Reaction Status Date / Time vancomycin AdvReac Other Verified 04/17/21 21:59 Vital Signs Vital Signs - 24 hr 04/17/21 13:15 04/17/21 18:07 04/17/21 18:55 Temperature 97.2 F L 97.3 F L Pulse Rate 97 78 80 Respiratory Rate 18 16 16 Blood Pressure 124/69 123/75 120/76 Pulse Oximetry 98 97 99 Exam Narrative: General: Well-developed male supine in bed in no distress. Weight: 108.6 kg. BMI: 30.7. HEENT: PERRL, EOMI. Sclerae anicteric. Oral mucosa moist. Neck: Supple. Respiratory: Lungs are clear to au
[2021-04-17 17:32] LABS: Glucose Point of Care 245 mg/dl (65-105)
[2021-04-17 18:07] VITALS: BP 123/75; PULSE 78; RESP 16; O2SAT 97
[2021-04-17 18:55] VITALS: BP 120/76; PULSE 80; RESP 16; TEMP 36.3; O2SAT 99
[2021-04-17 19:32] VITALS: BMI 30.7
[2021-04-17 19:57] VITALS: BP 116/66; PULSE 86; RESP 17; TEMP 36.6; O2SAT 99
[2021-04-17 20:40] LABS: Glucose Point of Care 224 mg/dl (65-105)
[2021-04-17] MEDS: LINEZOLID 600 MG/300 ML 600 MG/300 ML SOLN 300 MG IVPB (20:51)
[2021-04-17 23:17] LABS: Hemoglobin A1C 9.2 % (<5.7)
[2021-04-18 04:25] VITALS: BP 114/58; PULSE 74; RESP 17; TEMP 36.6; O2SAT 96
[2021-04-18 06:41] LABS: Hematocrit 42.1 % (42.0-52.0); Hemoglobin 14.4 g/dL (14.0-18.0); Mean Corpuscular HGB Conc 34.2 g/dl (32-36); Mean Corpuscular Hemoglobin 30.5 pg (26-34); Mean Corpuscular Volume 89.2 fl (80-100); Mean Platelet Volume 9.2 fl (7.4-10.4); Platelet Count Result 201 k/mm3 (150-375); Red Blood Count 4.72 M/mm3 (4.6-6.20); Red Cell Distribution Width 12.2 % (11.5-14.5); White Blood Count 8.1 K/mm3 (4.5-10.0)
[2021-04-18 06:52] LABS: Anion Gap 5 mmol/L (8-16); Blood Urea Nitrogen 17 mg/dL (9-20); Calcium 9.1 mg/dL (8.4-10.2); Carbon Dioxide 27 mmol/L (22-30); Chloride 98 mmol/L (98-107); Estimated CRCL calculation 122 ml/min; Estimated Glomerular Filt Rate > 60; Glucose 212 mg/dL (65-110); Magnesium 1.5 mg/dL (1.6-2.3); Potassium 4.1 mmol/L (3.4-5.0); Sodium 130 mmol/L (137-145)
[2021-04-18 08:03] LABS: Glucose Point of Care 213 mg/dl (65-105)
[2021-04-18] MEDS: LINEZOLID 600 MG/300 ML 600 MG/300 ML SOLN 300 MG IVPB ×2 (09:51→20:02)
[2021-04-18] MEDS: ENOXAPARIN 40 MG/0.4 ML SYRINGE SUB-Q (09:51)
[2021-04-18] MEDS: INSULIN ASPART (*BKC) 100 UNITS/ML SUB-Q ×3 (09:51→17:12)
[2021-04-18] MEDS: MAGNESIUM SULF 2 GM/WATER 50ML 2 GM/50 ML BAG IVPB (11:06)
--- NOTE | 2021-04-18 11:30 | PM.IMPN ---
Progress Note: A&P Assessment and Plan (1) Cellulitis of right foot: Code(s): L03.115 - Cellulitis of right lower limb Status: Acute Assessment and Plan: Improving with antibiotics -continue with linezolid and imipenem -patient has been afebrile with no leukocytosis -spoke with him extensively about glucose control. -no signs of abscess at this time (2) Diabetic infection of right foot: Code(s): E11.628 - Type 2 diabetes mellitus with other skin complications; L08.9 - Local infection of the skin and subcutaneous tissue, unspecified Status: Acute Assessment and Plan: Plan is as detailed above. (3) Type 2 diabetes mellitus with hyperglycemia: Code(s): E11.65 - Type 2 diabetes mellitus with hyperglycemia Status: Acute Assessment and Plan: Last glucose 213 -continue sliding scale insulin and will add Lantus -a1c 9.2 -patient states he has not taken his medication in a while. He has no problems with obtaining the medication or affording it, he simply just quit taking it. I explained to him the importance of glucose control to avoid future infections (4) Tobacco dependence: Code(s): F17.200 - Nicotine dependence, unspecified, uncomplicated Status: Chronic Assessment and Plan: Smoking cessation is encouraged and was discussed. Nicotine patch available if needed. (5) Hyponatremia: Code(s): E87.1 - Hypo-osmolality and hyponatremia Status: Acute Assessment and Plan: Sodium mildly Time Spent With Patient Time with patient: 25 - 35 minutes Subjective Date/time seen: 04/18/21 11:30 Interval history: Pt is a 55-year-old diabetic here for cellulitis. Patient was seen today and states his foot is less red. He has no complaints. Pt denies nausea, vomiting, fevers, chills, constipation, diarrhea, chest pain, sob, or abdominal pain. He states he would like a nicotine patch and he has not done drugs in a while. Review of Systems Review of Systems: All systems reviewed & are unremarkable except as noted in HPI and below Exam Narrative: General: Well developed well nourished patient in NAD HEENT: normocephalic Neck: supple Neuro: Alert and oriented x4 CV:RRR Resp:CTA Abd: Soft, non distended. No pain to palpation. Positive bowel sounds Extremities: Right foot with erythema to the lateral aspect up to the forefoot. Pulses and sensation intact. Mild swelling to the area. Plantar wound to the left foot without discharge. Objective Data Vital Signs Vital Signs: Vital Signs - 24 hr 04/17/21 13:15 04/17/21 18:07 04/17/21 18:55 Temperature 97.2 F L 97.3 F L Pulse Rate 97 78 80 Respiratory Rate 18 16 16 Blood Pressure 124/69 123/75 120/76 Pulse Oximetry 98 97 99 04/17/21 19:57 04/18/21 04:25 Temperature 97.8 F 98 F Pulse Rate 86 74 Respiratory Rate 17 17 Blood Pressure 116/66 114/58 L Pulse Oximetry 99 96 Intake/Output Intake/Output: Intake & Output 04/15/21 04/16/21 04/17/21 04/18/21 23:59 23:59 23:59 23:59 Intake Total 1500 460 Balance 1500 460 Meds/Results Medications: Active Medications Generic Name Dose Route Start Last Admin Trade Name Freq PRN Reason Stop Dose Admin Acetaminophen 650 mg 04/17/21 22:52 Acetaminophen 325 Mg Tablet PO Q6H PRN Mild Pain (1-3) or Fever Hydrocodone Bitart/Acetaminophen 1 tab 04/17/21 16:32 Hydrocodone/Acetaminophen (*Crx) 5-325 Mg Tablet PO Q6H PRN Pain Rated 4-6 Dextrose 12.5 gm 04/17/21 22:51 Dextrose 50% 25 Gm/50 Ml Syringe IV PUSH PRN PRN Hypoglycemia Protocol Enoxaparin Sodium 40 mg 04/18/21 09:00 04/18/21 09:51 Enoxaparin 40 Mg/0.4 Ml Syringe SUB-Q 40 mg DAILY LINO Administration Glucagon 1 mg 04/17/21 22:51 Glucagon For Inj 1 Mg Vial IM PRN PRN Hypoglycemia Protocol Glucose 15 gm 04/17/21 22:51 Glucose Oral Gel 15 Gm Of Glucse
[2021-04-18 12:01] LABS: Glucose Point of Care 245 mg/dl (65-105)
[2021-04-18] MEDS: NICOTINE (*PBKC) 21 MG PATCH 1 PATCH TRANSDERM (12:04)
[2021-04-18 14:00] VITALS: PULSE 79; RESP 18; TEMP 36.4; O2SAT 97
[2021-04-18 16:35] LABS: Glucose Point of Care 235 mg/dl (65-105)
[2021-04-18] MEDS: ACETAMINOPHEN 325 MG TABLET 650 MG PO (19:38)
[2021-04-18] MEDS: INSULIN GLARGINE (*BKC) 100 UNITS/ML 10 UNITS SUB-Q (20:02)
[2021-04-18 21:47] LABS: Glucose Point of Care 201 mg/dl (65-105)
[2021-04-18 22:00] VITALS: BP 111/72; PULSE 69; RESP 18; TEMP 36.8; O2SAT 97
[2021-04-19 05:49] VITALS: BP 107/66; PULSE 73; RESP 16; TEMP 36.6; O2SAT 97
[2021-04-19 05:52] LABS: Basophils Absolute Auto 0.1 K/mm3 (0.0-0.1); Basophils Percent Auto 0.7 % (0.2-1.2); Eosinophils Absolute Auto 0.1 K/mm3 (0-0.3); Eosinophils Percent Auto 2.1 % (0-4.4); Hematocrit 45.4 % (42.0-52.0); Hemoglobin 15.6 g/dL (14.0-18.0); Immature Granulocyte Absolute 0.03 K/mm3 (0.00-0.031); Immature Granulocyte Percent A 0.4 % (0-0.5); Lymphocytes Absolute Auto 1.56 K/mm3 (0.9-3.2); Mean Corpuscular HGB Conc 34.4 g/dl (32-36); Mean Corpuscular Hemoglobin 30.5 pg (26-34); Mean Corpuscular Volume 88.8 fl (80-100); Mean Platelet Volume 9.1 fl (7.4-10.4); Monocytes Absolute Auto 0.6 K/mm3 (0.1-0.6); Neutrophils Absolute Auto 4.4 K/mm3 (1.3-6.7); Neutrophils Percent Auto 64.8 % (45.5-73.1); Platelet Count Result 198 k/mm3 (150-375); Red Blood Count 5.11 M/mm3 (4.6-6.20); Red Cell Distribution Width 12.2 % (11.5-14.5); White Blood Count 6.8 K/mm3 (4.5-10.0)
[2021-04-19 06:17] LABS: Anion Gap 8 mmol/L (8-16); Blood Urea Nitrogen 13 mg/dL (9-20); CRP 8.8 mg/dL (<1.0); Calcium 9.2 mg/dL (8.4-10.2); Carbon Dioxide 27 mmol/L (22-30); Chloride 97 mmol/L (98-107); Estimated CRCL calculation 122 ml/min; Estimated Glomerular Filt Rate > 60; Glucose 259 mg/dL (65-110); Magnesium 1.8 mg/dL (1.6-2.3); Potassium 4.2 mmol/L (3.4-5.0); Sodium 132 mmol/L (137-145)
[2021-04-19 09:06] LABS: Glucose Point of Care 252 mg/dl (65-105)
[2021-04-19] MEDS: LINEZOLID 600 MG/300 ML 600 MG/300 ML SOLN 300 MG IVPB ×2 (09:15→20:26)
[2021-04-19] MEDS: INSULIN ASPART (*BKC) 100 UNITS/ML SUB-Q ×3 (09:15→18:18)
[2021-04-19] MEDS: ENOXAPARIN 40 MG/0.4 ML SYRINGE SUB-Q (09:20)
[2021-04-19 12:08] LABS: Glucose Point of Care 225 mg/dl (65-105)
[2021-04-19 14:30] VITALS: BP 106/66; PULSE 75; RESP 16; TEMP 36.8; O2SAT 99
[2021-04-19 16:30] LABS: Glucose Point of Care 204 mg/dl (65-105)
--- NOTE | 2021-04-19 17:23 | PM.IMPN ---
Progress Note: A&P Assessment and Plan (1) Cellulitis of right foot: Code(s): L03.115 - Cellulitis of right lower limb Status: Acute Assessment and Plan: Improving with antibiotics -continue with linezolid and imipenem -patient has been afebrile with no leukocytosis. CRP improving -spoke with him extensively about glucose control. -no signs of abscess at this time (2) Diabetic infection of right foot: Code(s): E11.628 - Type 2 diabetes mellitus with other skin complications; L08.9 - Local infection of the skin and subcutaneous tissue, unspecified Status: Acute Assessment and Plan: Plan is as detailed above. (3) Type 2 diabetes mellitus with hyperglycemia: Code(s): E11.65 - Type 2 diabetes mellitus with hyperglycemia Status: Acute Assessment and Plan: Last glucose 204 -continue sliding scale insulin and will add Lantus -a1c 9.2 -patient states he has not taken his medication in a while. He has no problems with obtaining the medication or affording it, he simply just quit taking it. I explained to him the importance of glucose control to avoid future infections (4) Tobacco dependence: Code(s): F17.200 - Nicotine dependence, unspecified, uncomplicated Status: Chronic Assessment and Plan: Smoking cessation is encouraged and was discussed. Nicotine patch available if needed. (5) Hyponatremia: Code(s): E87.1 - Hypo-osmolality and hyponatremia Status: Acute Assessment and Plan: Sodium mildly low due to hyperglycemia. It is 135-136 once corrected Subjective Date/time seen: 04/19/21 17:23 Interval history: Pt is a 55-year-old diabetic here for cellulitis. Patient was seen today and states his foot is less red. He has no other complaints. Pt denies nausea, vomiting, fevers, chills, constipation, diarrhea, chest pain, sob, or abdominal pain. He is eating and drinking well. Exam Narrative: General: Well developed well nourished patient in NAD HEENT: normocephalic Neck: supple Neuro: Alert and oriented x4 CV:RRR Resp:CTA Abd: Soft, non distended. No pain to palpation. Positive bowel sounds Extremities: Right foot with erythema to the lateral aspect up to the forefoot (improved today). Pulses and sensation intact. Mild swelling to the area. Plantar wound to the left foot without discharge. Objective Data Vital Signs Vital Signs: Vital Signs - 24 hr 04/18/21 22:00 04/19/21 05:49 04/19/21 14:30 Temperature 98.3 F 97.9 F 98.2 F Pulse Rate 69 73 75 Respiratory Rate 18 16 16 Blood Pressure 111/72 107/66 106/66 Pulse Oximetry 97 97 99 Intake/Output Intake/Output: Intake & Output 04/16/21 04/17/21 04/18/21 04/19/21 23:59 23:59 23:59 23:59 Intake Total 1500 2680 1480 Balance 1500 2680 1480 Meds/Results Medications: Active Medications Generic Name Dose Route Start Last Admin Trade Name Freq PRN Reason Stop Dose Admin Acetaminophen 650 mg 04/17/21 22:52 04/18/21 19:38 Acetaminophen 325 Mg Tablet PO 650 mg Q6H PRN Administration Mild Pain (1-3) or Fever Hydrocodone Bitart/Acetaminophen 1 tab 04/17/21 16:32 Hydrocodone/Acetaminophen (*Crx) 5-325 Mg Tablet PO Q6H PRN Pain Rated 4-6 Dextrose 12.5 gm 04/18/21 11:30 Dextrose 50% 25 Gm/50 Ml Syringe IV PUSH PRN PRN Hypoglycemia Protocol Enoxaparin Sodium 40 mg 04/18/21 09:00 04/19/21 09:20 Enoxaparin 40 Mg/0.4 Ml Syringe SUB-Q 40 mg DAILY LINO Administration Glucagon 1 mg 04/18/21 11:30 Glucagon For Inj 1 Mg Vial IM PRN PRN Hypoglycemia Protocol Glucose 15 gm 04/18/21 11:30 Glucose Oral Gel 15 Gm Of Glucse In 37.5 Gm Tube PO PRN PRN Hypoglycemia Protocol Linezolid 600 mg in 300 mls @ 300 mls/hr 04/17/21 21:00 04/19/21 10:15 Zyvox IVPB Infused Q12HR LINO Infusion Imipenem/Cilastatin Sodium 500 mg in 100 mls @ 3
[2021-04-19] MEDS: INSULIN GLARGINE (*BKC) 100 UNITS/ML 10 UNITS SUB-Q (20:29)
[2021-04-19] MEDS: NICOTINE (*PBKC) 21 MG PATCH 1 PATCH TRANSDERM (20:34)
[2021-04-19 21:07] VITALS: BP 122/63; PULSE 82; RESP 18; TEMP 36.6; O2SAT 98
[2021-04-19 21:48] LABS: Glucose Point of Care 201 mg/dl (65-105)
[2021-04-20 05:32] VITALS: BP 121/81; PULSE 74; RESP 17; TEMP 36.2; O2SAT 99
[2021-04-20 06:11] LABS: Anion Gap 7 mmol/L (8-16); Blood Urea Nitrogen 13 mg/dL (9-20); CRP 6.3 mg/dL (<1.0); Calcium 9.5 mg/dL (8.4-10.2); Carbon Dioxide 28 mmol/L (22-30); Chloride 96 mmol/L (98-107); Estimated CRCL calculation 109 ml/min; Estimated Glomerular Filt Rate > 60; Glucose 228 mg/dL (65-110); Potassium 4.3 mmol/L (3.4-5.0); Sodium 131 mmol/L (137-145)
[2021-04-20 07:43] LABS: Glucose Point of Care 208 mg/dl (65-105)
[2021-04-20] MEDS: INSULIN ASPART (*BKC) 100 UNITS/ML SUB-Q (08:04)
[2021-04-20] MEDS: LINEZOLID 600 MG/300 ML 600 MG/300 ML SOLN 150 MG IVPB (09:00)
[2021-04-20] MEDS: ENOXAPARIN 40 MG/0.4 ML SYRINGE SUB-Q (09:00)
[2021-04-20 10:28] VITALS: O2SAT 99
[2021-04-20 11:39] LABS: Glucose Point of Care 193 mg/dl (65-105)
--- NOTE | 2021-04-20 11:52 | PM.DS ---
DS: Admitting Diagnosis Discharge Date 04/20/2021 Admitting Diagnosis Cellulitis of right foot DS: Discharge Diagnosis Discharge Diagnosis (1) Cellulitis of right foot: Code(s): L03.115 - Cellulitis of right lower limb Status: Acute Assessment and Plan: Presented with swelling and erythema of the right foot. Right foot x-ray showed no evidence of fracture, dislocation, periosteal reaction, or bone destruction. He does have a history of MRSA infection. -Remained afebrile and without leukocytosis -Received IV Linezolid and Imipenem with symptomatic improvement -Transitioned to PO Bactrim x7 days -No evidence of abscess -Glucose control is imperative (2) Diabetic infection of right foot: Code(s): E11.628 - Type 2 diabetes mellitus with other skin complications; L08.9 - Local infection of the skin and subcutaneous tissue, unspecified Status: Acute Assessment and Plan: Plan is as detailed above. (3) Type 2 diabetes mellitus with hyperglycemia: Code(s): E11.65 - Type 2 diabetes mellitus with hyperglycemia Status: Acute Assessment and Plan: A1c is 9.2. -Glucose ranged 194-245. -managed with Accu-Cheks, sliding scale insulin, hypoglycemic protocol during admission. Also received 10 units Lantus during admission. -he reports he had stopped taking all of his hypoglycemic medications. Denies any issues with obtaining medication or affordability. Stated he simply quit taking it. Discussed importance of tight glycemic control to avoid future infections. Resumed metformin 500 mg b.i.d.. Instructed to monitor glucose at home 3x/day and follow up with PCP in 1 week for monitoring (4) Tobacco dependence: Code(s): F17.200 - Nicotine dependence, unspecified, uncomplicated Status: Chronic Assessment and Plan: Smokes 1/2 pack per day. Smoking cessation discussed at length. (5) Hyponatremia: Code(s): E87.1 - Hypo-osmolality and hyponatremia Status: Acute Assessment and Plan: Mild. Secondary to hypoglycemia. Sodium 134 at time of discharge when corrected for hypoglycemia. DS: Summary Hospital Course Hospital Course: Date of admission: 04/17/2021 Date of discharge: 04/20/2021 Bob Webster is a 55-year-old male with a history of type 2 diabetes mellitus, MRSA infection, tobacco dependence, who presented to the emergency department on 04/17/2021 with complaints of swelling and redness of the dorsal right foot. On presentation to the emergency department, his vital signs were stable, he was afebrile, WBC 73420, glucose 309, additional CBC and BMP unremarkable, lactic 1.2. He was admitted to the hospitalist service for further evaluation and management. Please see above for further details. He had symptomatic improvement with IV antibiotics and will continue p.o. antibiotics to complete a 7 day course. Discussed glycemic control at length. He was feeling much better and was eager for discharge home. Given his overall improvement, he was determined to no longer require inpatient care and was felt to be stable for discharge. He was discharged in hemodynamically stable condition on 04/20/2021. Status at Discharge Functional status at discharge: independent ambulation Overall status at discharge: patient is progressing back to baseline Time Spent with Patient Time attestation: Total time spent providing and/or coordinating discharge services: 45 minutes Exam Narrative: Mr. Webster is a well-nourished, well-appearing 53-year-old male who is sitting in a chair by the bedside. He appears comfortable and is in NARD. Neuro: awake, alert and oriented x4, speech clear, no focal neuro deficits noted HEENMT: normocephalic, atraumatic, EOMI, sclerae anicteric, moist oral mucosa, tongue midline, nares patent Neck: supple, no lymphadenopathy Respiratory: clear to auscultation bilaterally, nonlabored breathing Cardio: regular r
[2021-04-20 14:00] VITALS: BP 119/83; PULSE 87; RESP 16; TEMP 36.5; O2SAT 100
== END 2021-04-20 16:52 | disposition home or self-care (01) ==
LOC: ANHED 16:42 → ANH3MED 17:27
PROVIDERS: Physician Assistant; Admitting Provider Family Medicine; Emergency Provider Emergency Medicine; PCP Internal Medicine Infectious Disease; Visit Provider Family Medicine
DX: L03.115 Cellulitis of right lower limb (principal); L97.518 Non-pressure chronic ulcer of other part of right foot with other specified severity; E11.621 Type 2 diabetes mellitus with foot ulcer; E11.42 Type 2 diabetes mellitus with diabetic polyneuropathy; E11.65 Type 2 diabetes mellitus with hyperglycemia; E87.1 Hypo-osmolality and hyponatremia; F17.210 Nicotine dependence, cigarettes, uncomplicated; Z79.4 Long term (current) use of insulin; Z86.14 Personal history of Methicillin resistant Staphylococcus aureus infection
CPT/HCPCS: 36415; 73630; 80048; 80053; 82948; 83036; 83605; 83735; 85025; 85027; 86140; 87040; 96361; 96365; 96366; 96367; 96372; 99285; A9270; G0378; G0379; J0743; J1650; J1815; J2020; J3475; J7030

== ENCOUNTER 2021-06-13 19:57 | Emergency (ER) | payer BC, SELFPAY ==
--- NOTE | ~2021-06-13 | XR_ITS ---
EXAMINATION: XR shoulder LT min 2V INDICATION: Left shoulder and clavicle pain TECHNIQUE: Four views of the left shoulder are submitted. COMPARISON: None FINDINGS: Normal alignment. No fracture. There is mild glenohumeral and acromioclavicular joint osteo arthritis. Soft tissues are unremarkable. IMPRESSION: 1. No acute osseous abnormality. Reviewed, dictated and finalized at location F. [employer] CLERK
[2021-06-13 20:06] VITALS: BP 149/82; PULSE 132; RESP 20; TEMP 37.1; O2SAT 98
--- NOTE | 2021-06-13 21:36 | ED.GENADULT ---
HPI - General Adult General Chief complaint: Extremity Injury, Upper Stated complaint: L collarbone pain Time Seen by Provider: 06/13/21 21:18 History of Present Illness HPI narrative: Patient is a 55-year-old gentleman who presents the emergency department with chief complaint of left shoulder pain patient reports he stretched and felt a pop in his left shoulder been having pain since in his left shoulder patient states is worse with movement improved with rest patient denies chest pain denies shortness of breath. Related Data Allergies Allergy/AdvReac Type Severity Reaction Status Date / Time vancomycin AdvReac Other Verified 06/13/21 20:11 Review of Systems Review of Systems: A 10 system review of systems was completed on the patient and is negative except for what is stated in the HPI. Nursing and ancillary documentation was reviewed. [facility] Past Medical History Medical History Abscess of right foot (10/2020) Amphetamine abuse Patient is vague as to how often he uses. Diabetic foot ulcers Diabetic peripheral neuropathy History of MRSA infection Hypercholesterolemia Obesity Polysubstance abuse Including methamphetamines and marijuana. Tobacco dependence Type 2 diabetes mellitus Surgical History Surgical History History of carpal tunnel release (~09/07/20) Left-sided per Dr. Escobedo. History of colonoscopy (~10/2008) Negative aside from internal hemorrhoidal tissue per Dr. Damico. History of incision and drainage (10/04/20) Complex incision and drainage of right diabetic foot ulcer per Dr. Zhao. Status post debridement (~12/21/19) Excisional debridement of skin, subcutaneous tissue, and muscle of a 4 cm2 ulcer of the plantar surface of the right foot with removal foreign body under fluoroscopy per Dr. Raymundo. Family History Family History Other Carcinoma of colon Diabetes mellitus Social History Social History Social History: Surrogate decision maker: Maxwell Webster, spouse. Code status: Full code. Smoking packs per day: 0.5 Smoking cigarettes per day: 10.0 Years smoked: 20 Smoking pack-years: 10.00 Smoking status: Current every day smoker Tobacco type: cigarettes Alcohol intake: current Alcohol use details: Drinks several alcoholic beverages a month. Substance use: current Substance use type: marijuana Other substance usage details: Previous history of methamphetamine use. Additional living arrangements comments: Lives in [place] with his spouse. Additional occupation/education comments: Unemployed. Exam Narrative: GENERAL: Well-appearing, well-nourished, and in no acute distress. HEAD: Normocephalic, atraumatic. EYES: PERRLA and EOMI. ENT: Nares clear, no rhinorrhea or epistaxis. Mucous membranes moist. NECK: Supple. CHEST: Clear to auscultation. No respiratory distress. HEART: Regular rate and rhythm. No murmur heard. Normal peripheral pulses. ABDOMEN: Soft, nontender, nondistended, normal active bowel sounds. EXTREMITIES: Normal range of motion. No edema. Tenderness to palpation of the left shoulder SKIN: Warm, dry, no rash. NEURO: No focal deficits. Alert and oriented x3. PSYCH: Normal mood and affect. Course Course Emergency Course: Left shoulder shows no evidence of fracture Vital Signs Vital signs: Vital Signs Temperature 37.1 C 06/13/21 20:06 Pulse Rate 132 H 06/13/21 20:06 Respiratory Rate 20 06/13/21 20:06 Blood Pressure 149/82 H 06/13/21 20:06 Pulse Oximetry 98 06/13/21 20:06 Temperature 37.1 C 06/13/21 20:06 Pulse Rate 132 H 06/13/21 20:06 Respiratory Rate 20 06/13/21 20:06 Blood Pressure 149/82 H 06/13/21 20:06 Pulse Oximetry 98 06/13/21 20:06 Med
[2021-06-13] MEDS: KETOROLAC 30 MG/ML VIAL (*BKC) IM (21:49)
[2021-06-13 22:01] VITALS: PULSE 97
== END 2021-06-13 22:02 | disposition home or self-care (01) ==
PROVIDERS: Emergency Provider Emergency Medicine; PCP Internal Medicine Infectious Disease
DX: S46.912A Strain of unspecified muscle, fascia and tendon at shoulder and upper arm level, left arm, initial encounter (principal); E11.42 Type 2 diabetes mellitus with diabetic polyneuropathy; Z86.14 Personal history of Methicillin resistant Staphylococcus aureus infection; E78.00 Pure hypercholesterolemia, unspecified; E66.9 Obesity, unspecified; Z68.33 Body mass index [BMI] 33.0-33.9, adult; F17.210 Nicotine dependence, cigarettes, uncomplicated; Z79.84 Long term (current) use of oral hypoglycemic drugs; X50.9XXA Other and unspecified overexertion or strenuous movements or postures, initial encounter
CPT/HCPCS: 73030; 96372; 99283; A4565; J1885

== ENCOUNTER 2021-06-18 20:33 | Inpatient (IN) | payer BC, SELFPAY ==
--- NOTE | ~2021-06-18 | CT_ITS ---
EXAMINATION: CT brain wo con DATE: 06/20/2021 13:00 INDICATION: Altered mental status TECHNIQUE: Computed tomography (CT) of the head was performed without intravenous contrast. The mA wa s adjusted according to patient size. Iterative reconstruction technique was employed. Exam dose: 75 6.67 mGy-cm total exam DLP. COMPARISON: 03/27/2005 CT brain FINDINGS: Bilateral vertebral artery, basilar artery and bilateral carotid siphon internal carotid ar kurt calcifications. No intracranial mass lesion or hemorrhage or cerebrovascular accident. No midline shift or mass effec t. No subdural or epidural hematoma. No orbital mass lesion. Small fluid levels in both maxillary sinuses; the paranasal sinuses and mastoid air cells are otherwi se unremarkable. No fracture or bone destruction of the cranial vault. IMPRESSION: Cerebral atherosclerosis No acute intracranial finding Small fluid levels in both maxillary sinuses Reviewed, dictated and finalized at [facility]. Reviewed, dictated and finalized at location A. NE OILER
--- NOTE | ~2021-06-18 | XR_ITS ---
EXAMINATION: XR chest 1V portable DATE: 06/20/2021 16:03 INDICATION: Obtunded with transient alteration of awareness TECHNIQUE: Single frontal view of the chest was obtained. COMPARISON: Chest radiograph dated 06/18/2021 FINDINGS: Mild elevation of the left hemidiaphragm. Mild streaky opacities at the left lung base consistent wit h mild atelectasis. Right lung remains clear. No pulmonary edema, pleural effusion or pneumothorax. T he cardiomediastinal silhouette is normal. IMPRESSION: 1. Streaky opacities at the left lung base with mild elevation of the left hemidiaphragm favoring ate lectasis over pneumonia. Reviewed, dictated and finalized at location A. RESSIONAL ASSISTANT IMPRESSION: 1. Streaky opacities at the left lung base with mild elevation of the left january diaphragm favoring atelectasis over pneumonia.
--- NOTE | ~2021-06-18 | CT_ITS ---
EXAMINATION: CT soft tissue neck chest w INDICATION: Superior sternal swelling TECHNIQUE: Computed tomographic images of the neck and chest were obtained after the administration o f 100 cc of Omnipaque 350 intravenous contrast. The dose-length product (DLP) was 1156.44 mGy-cm. Aut omated exposure control and iterative reconstruction technique were employed. COMPARISON: 06/20/2021, 11/05/2008 FINDINGS: CT NECK: There is persistent soft tissue gas, fluid, and inflammation near the medial head of the lef t clavicle. There has been overall increase in gas and fluid since the comparison examination. A gas and fluid collection posterior to the clavicular head measures approximately 4.4 x 2.[address] ane between the superior mediastinum and fluid collection appears to be intact although there are dieter e areas of subtle stranding in the adjacent mediastinal fat. The fluid and inflammation extend inferi or and anterior to the medial head of the left clavicle. No pathologically enlarged lymph nodes are i dentified. There is mild mucosal thickening of the maxillary sinuses. Mild calcified atherosclerosis is noted in the internal carotid arteries. There is moderate cervical spondylosis. CT CHEST: A right subclavian central venous catheter is noted. There is a small amount of soft tissue gas projecting anterior to the right shoulder which may relate to catheter insertion. No pathologica lly enlarged thoracic lymph nodes are identified. The heart size is normal. There is calcified olvera ry artery atherosclerosis. A small left pleural effusion is present. There is mild dependent atelecta sis of the left lung. There is no pneumothorax. There is a 5 mm nodule of the left lower lobe stable since 2008, consistent with old granulomatous disease. A stone is present in the gallbladder. Mild th oracic spondylosis is noted. IMPRESSION: 1. Phlegmon versus abscess surrounding the medial head of the left clavicle with interval increase in size. Although this appears to be superficial to the mediastinum, there is subtle stranding in the a nterior mediastinal fat which is likely reactive. 2. Small right pleural effusion. Reviewed, dictated and finalized at location F. ER HELPER IMPRESSION: 1. Phlegmon versus abscess surrounding the medial head of the left clavicle wit h interval increase in size. Although this appears to be superficial to the med iastinum, there is subtle stranding in the anterior mediastinal fat which is li crispin reactive. 2. Small right pleural effusion.
--- NOTE | ~2021-06-18 | XR_ITS ---
XR foot RT min 3V DATE: 06/18/2021 22:46 INDICATION: Right foot ulcer TECHNIQUE: 3 views COMPARISON: None FINDINGS: Prominent plantar and posterior calcaneal enthesopathy. No fracture, dislocation, periosteal reaction or bone destruction is detected Joint spaces appear relatively preserved. No erosive change. No subcutaneous emphysema or abnormal so ft tissue calcification is noted. IMPRESSION: Calcaneal enthesopathy Reviewed, dictated and finalized at location A. ISKILL OPERATOR IMPRESSION: Calcaneal enthesopathy
--- NOTE | ~2021-06-18 | XR_ITS ---
XR knee LT 3V DATE: 06/18/2021 22:47 INDICATION: Left knee pain and swelling for 3 to 4 days TECHNIQUE: 3 views COMPARISON: None FINDINGS: There is distention of the suprapatellar bursa consistent with knee joint effusion. There is moderately severe tricompartment osteoarthritis, most pronounced at the medial compartment. No fracture or dislocation, periosteal reaction or bone destruction, radiopaque intra-articular loose body or chondrocalcinosis is detected. Femoral and popliteal and trifurcation artery calcifications. IMPRESSION: Knee joint effusion Tricompartment osteoarthritis Reviewed, dictated and finalized at location A. REL PATTERNMAKER
--- NOTE | ~2021-06-18 | XR_ITS ---
EXAMINATION: XR chest 2V EXAM DATE: 06/18/2021 21:25 INDICATION: Chest pain. TECHNIQUE: Frontal and lateral projections of the chest obtained and reviewed. There is no prior keegan dy for comparison. FINDINGS: The lungs are clear. There are no pleural effusions. The cardiomediastinal silhouette is within normal limits. There is no pneumothorax suspected. The bones and soft tissues are unremarkab le. IMPRESSION: No acute cardiopulmonary findings. Reviewed, dictated and finalized at location G. ING ASSISTANT
--- NOTE | ~2021-06-18 | MR_ITS ---
EXAMINATION: MR foot RT wo/w con DATE: 06/19/2021 14:51 INDICATION: Right diabetic foot ulcer of the head of the fifth metatarsal which probes to bone. TECHNIQUE: Magnetic resonance imaging (MRI) of the right fore and midfoot was performed without and w ith 20 mL Multihance intravenous contrast. Sequences included axial T1-weighted FSE, axial T2-weighte d FS FSE, coronal T1-weighted FSE, coronal T2-weighted FS FSE, sagittal T1-weighted FSE and sagittal T2-weighted FS FSE. Precontrast axial T1-weighted FS FSE and post contrast axial and coronal T1-weigh mikaela FS FSE were also obtained. COMPARISON: Right foot radiographs dated 06/18/2021 FINDINGS: There is a deep skin ulceration along the lateral aspect of the head of the fifth metatarsal. There i s interval decrease in the amount of soft tissue swelling at this location with a couple tiny foci of low signal intensity likely gas within the soft tissues both dorsal and plantar to the head of the f ifth metatarsal which suggests interval decompression of prior abscess at this location. No joint eff usion at the fifth metatarsophalangeal joint or abnormal marrow signal or enhancement to suggest oste omyelitis. There is prominent metallic magnetic field artifact at the plantar aspect of the distal phalanx of th e right great toe. Correlation with prior radiographs demonstrates a 7 mm thin wire-like metallic for eign body in the plantar soft tissues at this location on the prior radiographs. No associated absces s or evident abnormal marrow signal in the distal phalanx of the great toe to suggest osteomyelitis. There is soft tissue edema and nonmasslike enhancement centered at the medial forefoot. This surround s a region of nonenhancing soft tissue swelling with positive T1 fat signal located plantar to the he ad of the first metatarsal extending medial to the head of the first metatarsal which raises concern for infection with tissue necrosis without an organized abscess. There is a small peripherally enhanc ing joint effusion at the first metatarsophalangeal joint which raises concern for septic arthritis. There is no abnormal marrow signal changes in the adjacent bones to suggest osteomyelitis. Mild nonspecific marrow edema without loss of T1 fat signal to suggest osteomyelitis at the dorsal/la teral aspect of the medial cuneiform which may relate osteoarthritis at the navicular cuneiform more intercuneiform articulations. IMPRESSION: 1. Region of nonenhancing soft tissue plantar and medial to the head of the first metatarsal suspicio us for infection and soft tissue necrosis but without evident abscess. Small joint effusion at the fi rst metatarsophalangeal joint could represent associated septic arthritis but there is normal marrow signal change at this location to suggest osteomyelitis. 2. A a few tiny foci of gas within a crescentic similar region of nonenhancing soft tissue extending along the dorsal, lateral and plantar margins of the head of the fifth metatarsal where there was pro minent soft tissue swelling at the time of the prior radiograph which suggests interval decompression of a now collapsed abscess. Correlate with clinical history. No diffusion to suggest septic arthriti s or marrow signal changes to suggest osteomyelitis. 3. Small are likely retained metallic foreign body at the plantar fat pad at the first distal phalanx without evident associated abscess or osteomyelitis. Reviewed, dictated and finalized at location A. FITTINGS MOLDER IMPRESSION: 1. Region of nonenhancing soft tissue plantar and medial to the head of the fir st metatarsal suspicious for infection and soft tissue necrosis but without segundo dent abscess. Small joint effusion at the first metatarsophalangeal joint could represent associated septic arthritis but
--- NOTE | ~2021-06-18 | CT_ITS ---
EXAMINATION: CT soft tissue neck chest w DATE: 07/02/2021 09:30 INDICATION: Left sternoclavicular abscess. TECHNIQUE: Computed tomography (CT) of the neck and chest was performed with 75 mL Omnipaque 350 intr avenous contrast. Automated exposure control and iterative reconstruction technique were employed. Th e dose-length product was 1099.66 mGy-cm. COMPARISON: CT neck and chest 06/24/2021, neck CT 06/20/21 FINDINGS: CT NECK: There is plaque in the proximal internal carotid arteries with 0% stenosis relative to meena l distal artery lumen diameters. There are no pathologically enlarged lymph nodes. There is moderate cervical spondylosis. CT CHEST: A calcified left lung nodule and calcified left hilar lymph nodes are consistent with old g ranulomatous disease. There is a 3 mm nodule in left lower lobe, likely benign. No pleural effusion. The heart size is normal. There are coronary artery calcifications. No pericardial effusion. There is a gallstone in the gallbladder, which is distended, likely secondary to fasting. There is a 2 mm sto ne in right kidney. There is soft tissue gas in right upper arm and right supraclavicular region. The re is severe right acromioclavicular joint osteoarthritis. There are erosions at right acromioclavicu lar joint that are new from 06/20/2021. There is severe osteoarthritis of the sternoclavicular joints. There are erosions at the left sternoclavicular joint that are new from 06/20/2021. There is soft tis lan swelling and soft tissue gas deep and superficial to the distal left clavicle and extending super iorly in the anterior neck. IMPRESSION: 1. Septic arthritis at the left sternoclavicular joint with surrounding soft tissue swelling and soft tissue gas, worsened from 06/24/21. No drainable fluid collection. 2. Septic arthritis at the right acromioclavicular joint with surrounding soft tissue swelling and so ft tissue gas, worsened from 06/24/21. No drainable fluid collection. Reviewed, dictated and finalized at location A. WIG MAKER ROOTED HAIR IMPRESSION: 1. Septic arthritis at the left sternoclavicular joint with surrounding soft ti ssue swelling and soft tissue gas, worsened from 06/24/21. No drainable fluid co llection. 2. Septic arthritis at the right acromioclavicular joint with surrounding soft tissue swelling and soft tissue gas, worsened from 06/24/21. No drainable fluid collection.
--- NOTE | ~2021-06-18 | CT_ITS ---
EXAMINATION: CT soft tissue neck wo con EXAM DATE: 06/20/2021 13:01 INDICATION: Altered Mental Status. TECHNIQUE: Spiral CT of the neck was performed without contrast. Axial, coronal and sagittal images were reviewed. The dose-length product (DLP) for this examination was 653.11 mGy-cm. The exposure was tailored according to patient size (auto mA exposure control), and iterative reconstruction (ASIR ) was used as additional dose reduction technique. There is no prior study for comparison. FINDINGS: There is fat stranding, inflammation surrounding the left greater than right sternoclavicul ar joint which have moderate to severe osteoarthritis. There is no acute fracture identified. Inflamm ation extending from this both cephalad along the lower aspect of the neck (anterior to thyroid), and also inferiorly to retromanubrial region. Some small foci of gas identified in this location as well and possible small fluid collection anterior to the inferior margin of the left thyroid lobe, region measuring 2.8 x 1.3 cm on axial image 94. The thyroid gland deep to this is unremarkable. The submandibular and parotid glands are symmetric. There is no cervical lymphadenopathy. There ar e no masses identified. The airway is unremarkable. Parapharyngeal and pre-glottic fat planes are preserved. Limited evaluation of cervical vessels on this noncontrast study. The orbits are u nremarkable. Small amount of fluid in both maxillary sinuses. The mastoid air cells are well aerate d. Lung apices are unremarkable. There is cervical spondylosis. Moderate disc disease at C6-7. IMPRESSION: Inflammation centered along sternoclavicular joints (left>right) possible small fluid co llection. Small foci of gas. Could be posttraumatic hematoma/seroma (reportedly patient heard pop acc ording to left shoulder x-ray report from 06/13/2021, although reportedly no history of trauma). Gas c ould be extruded from the joint, but findings also could indicate infection. Consider clinical correl ation. Reviewed, dictated and finalized at location G. T TECHNICIAN IMPRESSION: Inflammation centered along sternoclavicular joints (left>right) p ossible small fluid collection. Small foci of gas. Could be posttraumatic hemat yusra/seroma (reportedly patient heard pop according to left shoulder x-ray repor t from 06/13/2021, although reportedly no history of trauma). Gas could be extru ded from the joint, but findings also could indicate infection. Consider clinic al correlation.
--- NOTE | ~2021-06-18 | XR_ITS ---
EXAMINATION: XR shoulder RT min 2V EXAM DATE: 06/27/2021 14:33 INDICATION: Right Shoulder Pain . TECHNIQUE: 2 portable frontal projections right shoulder. Reportedly patient declined positioning fo r exam. There are no prior studies for comparison. FINDINGS: There is moderate right acromioclavicular primary osteoarthritis. There are no acute fractu res or dislocations identified. There is no subcutaneous gas. The soft tissue is unremarkable. Th ere are no radiopaque foreign bodies. IMPRESSION: Moderate acromioclavicular osteoarthritis. Reviewed, dictated and finalized at location A. UTIVE MANAGER
[2021-06-18 20:47] VITALS: BP 110/84; PULSE 130; RESP 20; TEMP 35.9; O2SAT 100
--- NOTE | 2021-06-18 20:53 | ECG_ITS ---
Measurements Intervals [place] Rate: 128 P: 83 NH: 144 QRS: 41 QRSD: 93 T: 50 QT: 250 QTc: 365 Interpretive Statements SINUS TACHYCARDIA BASELINE ARTIFACT- III ABNORMAL ECG Electronically Signed On 06-19-2021 6:25:04 [employer] by Aris Slater D.O.
[2021-06-18 21:23] LABS: Basophils Absolute Auto 0.1 K/mm3 (0.0-0.1); Basophils Percent Auto 0.7 % (0.2-1.2); Eosinophils Percent Auto 0.1 % (0-4.4); Hematocrit 46.8 % (42.0-52.0); Hemoglobin 15.4 g/dL (14.0-18.0); Immature Granulocyte Absolute 0.23 K/mm3 (0.00-0.031); Immature Granulocyte Percent A 1.5 % (0-0.5); Lymphocytes Absolute Auto 0.77 K/mm3 (0.9-3.2); Lymphocytes Percent Auto 5.1 % (18.3-44.2); Mean Corpuscular HGB Conc 32.9 g/dl (32-36); Mean Corpuscular Hemoglobin 29.6 pg (26-34); Mean Corpuscular Volume 89.8 fl (80-100); Mean Platelet Volume 9.5 fl (7.4-10.4); Monocytes Absolute Auto 0.7 K/mm3 (0.1-0.6); Monocytes Percent Auto 4.4 % (2.6-8.5); Neutrophils Absolute Auto 13.3 K/mm3 (1.3-6.7); Neutrophils Percent Auto 88.2 % (45.5-73.1); Platelet Count Result 266 k/mm3 (150-375); Red Blood Count 5.21 M/mm3 (4.6-6.20); Red Cell Distribution Width 12.8 % (11.5-14.5); White Blood Count 15.1 K/mm3 (4.5-10.0)
[2021-06-18 21:35] LABS: INR 1.1; Partial Thromboplastin Time 30.1 SECONDS (22.3-36.8); Prothrombin Time 13.6 Seconds (11.1-14.7)
[2021-06-18 21:39] LABS: Alanine Aminotransferase 23 U/L (4-50); Albumin Level 3.7 g/dL (3.5-5.1); Alkaline Phosphatase 227 U/L (38-126); Anion Gap 15 mmol/L (8-16); Aspartate Amino Transferase 26 U/L (17-59); Bilirubin,Total 0.9 mg/dL (0.2-1.3); Blood Urea Nitrogen 26 mg/dL (9-20); Calcium 9.6 mg/dL (8.4-10.2); Carbon Dioxide 25 mmol/L (22-30); Chloride 90 mmol/L (98-107); Estimated CRCL calculation 80 ml/min; Estimated Glomerular Filt Rate > 60; Glucose 417 mg/dL (65-110); Lipase 1397 U/L (23-300); Potassium 3.8 mmol/L (3.4-5.0); Sodium 130 mmol/L (137-145)
[2021-06-18 21:52] LABS: Troponin I < 0.012 ng/mL (0.000-0.034)
[2021-06-18 22:02] VITALS: BP 141/73; PULSE 120; RESP 22; O2SAT 99
[2021-06-18 22:07] VITALS: O2SAT 98
[2021-06-18 22:43] LABS: Lactic Acid Reflex 3.1 mmol/L (0.7-2.1)
[2021-06-18 22:55] LABS: Erythrocyte Sedimentation Rate 33 mm/hr (0-20)
[2021-06-18] MEDS: KETOROLAC 30 MG/ML VIAL (*BKC) IV PUSH (23:02)
--- NOTE | 2021-06-18 23:03 | ED.GENADULT ---
HPI - General Adult General Chief complaint: Unspecified Stated complaint: right knee pain Time Seen by Provider: 06/18/21 22:29 Source: patient History of Present Illness HPI narrative: Patient is a 55 y/o male complaining of left knee pain for 3 days. He describes his pain as sharp and rates it as 10/10. Moving or bending his knee makes the pain worse. He has no fever, chills, chest pain, abdominal pain or vomiting. He also has a right foot ulcer that's been there for several weeks. Related Data Allergies Allergy/AdvReac Type Severity Reaction Status Date / Time vancomycin AdvReac Other Verified 06/19/21 03:09 Review of Systems Constitutional: Constitutional: Denies chills, Denies fever(s), Denies headache(s) and Denies weakness Eyes: Eyes: Denies blurry vision ENT: Denies headache(s) and Denies neck pain Cardiovascular: Cardiovascular: Denies chest pain and Denies dyspnea Respiratory: Respiratory: Denies cough and Denies dyspnea Gastrointestinal: Gastrointestinal: Denies abdominal pain, Denies diarrhea, Denies nausea and Denies vomiting Genitourinary: Genitourinary: Denies hematuria and Denies dysuria Musculoskeletal: Musculoskeletal: Reports as per HPI, Denies back pain, Denies neck pain and Reports other (left knee pain, right foot ulcer) Neurologic: Denies headache(s) and Denies weakness PMFSH Past Medical History Medical History Abscess of right foot (10/2020) Amphetamine abuse Patient is vague as to how often he uses. Diabetic foot ulcers Diabetic peripheral neuropathy History of MRSA infection Hypercholesterolemia Obesity Polysubstance abuse Including methamphetamines and marijuana. Tobacco dependence Type 2 diabetes mellitus Hemoglobin A1c greater than 11 April 2021 Surgical History Surgical History History of carpal tunnel release (~09/07/20) Left-sided per Dr. Escobedo. History of colonoscopy (~10/2008) Negative aside from internal hemorrhoidal tissue per Dr. Damico. History of incision and drainage (10/04/20) Complex incision and drainage of right diabetic foot ulcer per Dr. Zhao. Status post debridement (~12/21/19) Excisional debridement of skin, subcutaneous tissue, and muscle of a 4 cm2 ulcer of the plantar surface of the right foot with removal foreign body under fluoroscopy per Dr. Raymundo. Family History Family History Other Carcinoma of colon Diabetes mellitus Social History Social History Social History: Surrogate decision maker: Maxwell Webster, spouse. Code status: Full code. Smoking packs per day: 0.5 Smoking cigarettes per day: 10.0 Years smoked: 20 Smoking pack-years: 10.00 Smoking status: Current every day smoker Tobacco type: cigarettes Alcohol intake: former Alcohol use details: Drinks several alcoholic beverages a month. Substance use: former Substance use type: methamphetamine Other substance usage details: Previous history of methamphetamine use. Additional living arrangements comments: Lives in [place] with his spouse. Additional occupation/education comments: Unemployed. Spiritual care concerns: No Exam Const: General: no acute distress and well developed Orientation/consciousness: oriented to person, oriented to place, oriented to time and patient oriented x3 HENMT: Head: normocephalic Ears: external ears normal General nose exam: Normal external nose present Eyes: General: appearance normal, both eyes and all related structures Conjunctivae: conjunctivae normal Neck: Neck: normal visual inspection and full ROM Chest: Chest palpation & inspection: normal inspection of the chest and no tenderness Resp: Effort & Inspection: normal respiratory effort Auscultation: clear to auscultation bilatera
[2021-06-18] MEDS: SODIUM CHLORIDE 0.9% IV 1,000 ML 999 ML IV CONT (23:04)
[2021-06-18] MEDS: INSULIN HUMAN REGULAR (*BKC) 100 UNITS/ML 10 UNITS IV PUSH (23:05)
[2021-06-18 23:08] VITALS: BP 134/81; PULSE 110; RESP 16; O2SAT 96
[2021-06-18 23:13] LABS: CRP > 45.0 mg/dL (<1.0)
[2021-06-19] VITALS (11 sets, daily range): BP systolic 119–149; BP diastolic 60–78; PULSE 99–126; RESP 18–28; TEMP 35.9–37.9; O2SAT 95–100; BMI 28.1
[2021-06-19 00:02] LABS: Troponin I < 0.012 ng/mL (0.000-0.034)
[2021-06-19] MEDS: SODIUM CHLORIDE 0.9% IV 1,000 ML 999 ML IV CONT (00:41)
[2021-06-19] MEDS: TETANUS,DIPHTHERIA,AC PERTUSSIS ADULT (0.5 ML) BOOSTRIX IM (01:07)
[2021-06-19 01:27] LABS: Amphetamine Screen Urine Negative (Negative); Barbiturate Screen Urine Negative (Negative); Benzodiazepines Screen Urine Negative (Negative); Cannabinoid Screen Urine Negative (Negative); Cocaine Screen Urine Negative (Negative); Methadone Screen Urine Negative (Negative); Opiate Screen Urine Positive (Negative); Phencyclidine Screen Urine Negative (Negative)
[2021-06-19 01:30] LABS: Reflex Lactic Acid Yes or No Add Lactic
[2021-06-19 02:17] LABS: Appearance Synovial Fluid Turbid (Clear); Color Synovial Fluid Yellow (Colorless); RBC Synovial Fluid 0 /uL (0-0); Source Synovial Fluid Synovial fluid
[2021-06-19 02:18] LABS: Lymphocytes Synovial Fluid 7 %; Neutrophils Synovial Fluid 93 % (0-25)
[2021-06-19 02:20] LABS: Crystals Synovial Fluid None Seen (None Seen)
[2021-06-19 02:21] LABS: Glucose Point of Care 220 mg/dl (65-105)
[2021-06-19 03:07] LABS: Lactic Acid 2.2 mmol/L (0.7-2.1)
[2021-06-19 03:20] LABS: Troponin I < 0.012 ng/mL (0.000-0.034)
[2021-06-19] MEDS: MORPHINE SULFATE (*CRX) 4 MG/ML INJ IV PUSH (03:34)
[2021-06-19] MEDS: SODIUM CHLORIDE 0.9% IV 1,000 ML 150 ML IV CONT ×3 (03:45→22:01)
--- NOTE | 2021-06-19 06:09 | PC.NURSE ---
pt keeps trying to climb out of bed setting the bed alarm off and is becoming angry. He pulled out his IV access and will not leave his telemetry on. Pt is alert to self only. When getting pt back into bed I put up the patients bedrail up and he yelled at me and told me he should kick me in my fucking head. He also took his telemetry box and was trying to throw it accross the room. Dr. Alonso notified and CT of the brain ordered. supervisor of guidance and testing Melissa Nails notified and came to the patients bedside. I attempted to call pts to find out if she knew if the patient has been using drugs or when the last time of known use. Patient had told me that he doesn't use anymore because he can't afford to.
--- NOTE | 2021-06-19 07:27 | PM.IMHP ---
H&P: HPI History of Present Illness Date/Time: 06/19/21 05:27 Chief Complaint: Left knee pain Narrative: Source of information is ER records and past medical records. The patient himself is only oriented to person at the time of my evaluation. 55-year-old male with past medical history of poorly controlled diabetes mellitus, noncompliance with medical regimen, diabetic peripheral neuropathy, chronic diabetic foot wound and prior MRSA infections who presented to the ER with left knee pain. In the ER the patient reported that he had had 3-4 days of knee pain. At the time of my evaluation patient could not tell me what hospital he was added in fact kept telling me that he was at home. He stated that he was going to get up in get in the hot tub. He thought the year was 1999 and that the month was April. The patient had told me that he was having knee pain ever since he was last in the hospital. However he could not tell me when he was last in the hospital. He told the nurses on the medical floor that he had been seen at another hospital yesterday and they treated him like a drug addict so he left that hospital. However nursing staff told me that the patient's story was inconsistent and continued to change. When he arrived to the medical floor he was complaining of 10/10 knee pain. He was requesting pain medications. I gave but will order for 4 mg of morphine. The nursing staff diluted the morphine in a 10 mL flush and gave the morphine slowly. As the morphine was infusing the patient stated that he felt so warm all over. He was moving his hands and interacting with the air as if he was palpating objects. He was reaching for his IV and attempting to pull it out while I was at the bedside. I was able to redirect the patient at that time. The patient was restless and was getting out of bed. Shortly after my evaluation the patient became even more confused and subsequently I ordered a stat CT of the brain to rule out acute process. However his most suspicious that the patient had metabolic encephalopathy. The patient does have a history of drug abuse with min to amphetamines and opiates. It is also possibility could of been suffering from withdrawal. Patient also has a wound to his left lateral foot at the distal 5th metatarsal. The wound itself is not erythematous but the skin across the top of the foot starting at the base of the 1st metatarsal over to the 3rd metatarsal is erythematous and warm to touch. He does complain of pain with this area is palpated. The patient's knee was noted to be markedly swollen in the ER and was aspirated by the ER staff. Synovial fluid demonstrated 184,451 nucleated cells with 93% neutrophils. A g stain was ordered as routine and sent out to outside lab. I ordered a repeat Gram stain for stat but it is unknown if there is enough specimen to run the sample. Patient was placed on broad-spectrum antibiotic coverage with Zosyn and daptomycin in the ER. Orthopedic surgery was consulted. The patient reports an allergy of ?renal failure? with vancomycin use in the past. Review of Systems Review of Systems: ROS unobtainable: Yes unobtainable due to medical condition (Encephalopathy) and unobtainable due to mental status (Alert oriented to self only) PMFSH Past Medical History Medical History Abscess of right foot (10/2020) Amphetamine abuse Patient is vague as to how often he uses. Diabetic foot ulcers Diabetic peripheral neuropathy History of MRSA infection Hypercholesterolemia Obesity Polysubstance abuse Including methamphetamines and marijuana. Tobacco dependence Type 2 diabetes mellitus Hemoglobin A1c greater than 11 April 2021 Surgical History Surgical History History of carpal tunnel release (~09/07/20) Left-sided per Dr. Escobedo. History of colonoscopy (~10/2008) Negative aside from internal h
[2021-06-19] MEDS: HALOPERIDOL LACTATE 5 MG/ML VIAL IM (08:16)
[2021-06-19 08:36] LABS: EDCOVIDSCREEN Negative (Negative)
--- NOTE | 2021-06-19 08:54 | PM.CNOR ---
Assessment and Plan Assessment and plan (1) Septic arthritis: Qualifiers: Laterality: left Septic arthritis location: knee Septic arthritis organism: due to unspecified organism Qualified Code(s): M00.9 - Pyogenic arthritis, unspecified Code(s): M00.9 - Pyogenic arthritis, unspecified Status: Acute Assessment and Plan: 3-4 day history of left knee pain. Left knee with moderate swelling in the knee joint effusion. 40 mL of fluid aspirated from the left knee in the emergency room. Stat Gram stain and culture pending currently. Synovial fluid demonstrated 184,451 nucleated cells with 93% neutrophils. Patient is noncompliant with exam but pain with touch to the left knee and inability to flex and extend the left knee. No erythema noted. Radiographs do reveal significant degenerative changes. IV antibiotics initiated. Patient would likely benefit from repeat aspiration vs. I&D in the OR. We will await stat Gram stain and culture results in the interim. Ice and pain control. We will defer pain medication to hospitalist service given current acute altered mental status and difficulty with morphine. Patient will need I&D in the OR pending medical stability/clearance. (2) Amphetamine abuse: Code(s): F15.10 - Other stimulant abuse, uncomplicated Status: Chronic Assessment and Plan: History of polysubstance abuse. Current toxicology screen with evidence of opioids. 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 Most recent hemoglobin A1c in April was 9.2. Patient previously reported in April that he was unable to afford medications. Recommend repeat hemoglobin A1c at this time to assess for compliance with medications. Recommend diabetic nurse educator consult as well. (5) Abscess of right foot: Onset Date: 10/2020 Code(s): L02.611 - Cutaneous abscess of right foot Status: Acute Assessment and Plan: Radiographs of the right foot with no evidence of acute osteomyelitis. Questionable lucency at the 5th metatarsal head. Wound in the plantar aspect of the right 5th metatarsal head. Probing to bone. No purulence noted or malodor however extensive erythema across the dorsum of the forefoot. Palpable pedal pulse. Wound is tender to touch. Mild serosanguineous drainage noted. Culture obtained. Patient does have a history of 2 previous surgeries by general surgery, Dr. Zhao and Dr. Raymundo in 2019 and 2020.. He was recently admitted in April with cellulitis of the right foot and DFU and treated with IV antibiotics and discharged home. Patient is a poor historian in regards to his care, all information obtained from the medical chart. Recommend MRI at this time for further evaluation given chronic wound. Postop shoe with weight-bearing as tolerated. Dry gauze dressing at this time. Continue antibiotics per the hospitalist service at this time. Will likely proceed with I&D and possible 5th ray amputation pending MRI results and medical clearance/stability. (6) Cellulitis of right foot: Code(s): L03.115 - Cellulitis of right lower limb Status: Acute Assessment and Plan: Extensive erythema over the dorsum of the right foot. IV antibiotics at this time. Culture obtained. Plan for surgical debridement pending medical stability/clearance. (7) Metabolic encephalopathy: Code(s): G93.41 - Metabolic encephalopathy Status: Acute Assessment and Plan: Patient with a history of polysubstance abu
[2021-06-19 09:02] LABS: Glucose Point of Care 222 mg/dl (65-105)
[2021-06-19 09:11] LABS: Hematocrit 41.9 % (42.0-52.0); Hemoglobin 13.9 g/dL (14.0-18.0); Mean Corpuscular HGB Conc 33.2 g/dl (32-36); Mean Corpuscular Hemoglobin 29.6 pg (26-34); Mean Corpuscular Volume 89.1 fl (80-100); Mean Platelet Volume 9.6 fl (7.4-10.4); Platelet Count Result 229 k/mm3 (150-375); White Blood Count 13.6 K/mm3 (4.5-10.0)
[2021-06-19 09:18] LABS: Anion Gap 13 mmol/L (8-16); Blood Urea Nitrogen 25 mg/dL (9-20); Calcium 8.8 mg/dL (8.4-10.2); Carbon Dioxide 20 mmol/L (22-30); Chloride 97 mmol/L (98-107); Estimated CRCL calculation 97 ml/min; Estimated Glomerular Filt Rate > 60; Glucose 203 mg/dL (65-110); Potassium 4.4 mmol/L (3.4-5.0); Sodium 130 mmol/L (137-145)
[2021-06-19 09:19] LABS: Lactic Acid Reflex 2.4 mmol/L (0.7-2.1)
[2021-06-19] MEDS: PIPERACILLIN/TAZOBACTAM SOD 4.5 GM in SODIUM CHLORIDE 0.9% IV 100 ML 200 ML IVPB ×2 (11:19→17:00)
[2021-06-19 11:49] LABS: Glucose Point of Care 178 mg/dl (65-105)
--- NOTE | 2021-06-19 12:12 | PCWOUND ---
WOCN NOTE Received referral to see patient for foot ulcer, patient is being followed by orthopedic surgeon office, spoke to Ammy ROMERO. she is following patient and taking care of wound care at this time.
--- NOTE | 2021-06-19 13:19 | PC.NURSE ---
Called CAMILO Mantilla patient continues to be very noncompliant and belligerent. Patient will not listen to staff or stay in bed despite safety concerns. Patient refuses to go for scans ordered. not at bedside at this time, she will be back. Per Annalee, she will put in orders for IV ativan. Will continue to monitor patient.
[2021-06-19] MEDS: LORazepam INJ (*CRX) 2 MG/ML VIAL 1 MG IV PUSH ×2 (13:31→19:02)
--- NOTE | 2021-06-19 15:30 | PM.IMPN ---
Progress Note: A&P Assessment and Plan (1) Sepsis: Qualifiers: Sepsis acute organ dysfunction status: with acute organ dysfunction Sepsis type: sepsis due to unspecified organism Severe sepsis acute organ dysfunction type: encephalopathy Severe sepsis shock status: without septic shock Qualified Code(s): A41.9 - Sepsis, unspecified organism; R65.20 - Severe sepsis without septic shock; G93.40 - Encephalopathy, unspecified Code(s): A41.9 - Sepsis, unspecified organism Status: Acute (2) Hyponatremia: Code(s): E87.1 - Hypo-osmolality and hyponatremia Status: Acute (3) Cellulitis of right foot: Code(s): L03.115 - Cellulitis of right lower limb Status: Acute (4) Septic arthritis: Qualifiers: Laterality: left Septic arthritis location: knee Septic arthritis organism: due to unspecified organism Qualified Code(s): M00.9 - Pyogenic arthritis, unspecified Code(s): M00.9 - Pyogenic arthritis, unspecified Status: Acute (5) Lactic acidosis: Code(s): E87.2 - Acidosis Status: Acute (6) Type 2 diabetes mellitus with hyperglycemia: Qualifiers: Diabetes 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 Patient received adequate IV fluid hydration in the ER with 2 L normal saline. Will continue IV fluid hydration at 150 mL an hour. Blood cultures and synovial fluid cultures are pending. G stain is pending. Orthopedic surgery has been consulted. Will continue empiric antibiotic therapy with Zosyn and daptomycin. Patient also has cellulitis of the right foot. Which is likely stemming from his chronic diabetic foot wound on the lateral plantar surface. I am suspicious the patient may have had a transient bacteremia that resulted in seeding of his left knee joint. Wound Care has been consulted. MRI of the foot also ordered. Patient has chronic hyponatremia. His sodium is slightly lower than baseline. I suspect this is due to volume depletion given his acute sepsis. Will repeat BMP and continue IV fluid hydration. The patient is confused I suspect this is due to metabolic encephalopathy. He does not have any localizing deficits. CT of the head is been ordered to rule out acute intercranial process. Given the patient is moving all extremities and has no facial asymmetry and speech is relatively normal CVA is less likely on my differential. Patient has historically poorly controlled diabetes mellitus and was markedly hyperglycemic on arrival to the ER. His glucoses improved after he received 10 of IV insulin in the ER x1. Will continue Accu-Cheks q.6 hours while NPO and continue high-dose sliding scale insulin. The patient will not tolerate SCDs at this point. Will hold off on ordering Lovenox as I suspect the patient may need surgical intervention. The patient has been combative, aggressive, uncooperative, and confused. He did well with alternating Haldol IM and Ativan IV. Went down for MRI after receiving Ativan but then refused CT. Will likely need to give more Haldol or Ativan tomorrow to get the CTs done. He also is more cooperative when his is at bedside. Subjective Date/time seen: 06/19/21 15:30 Interval history: 55-year-old male with past medical history of poorly controlled diabetes mellitus, noncompliance with medical regimen, diabetic peripheral neuropathy, chronic diabetic foot wound and prior MRSA infections, admitted for septic left knee, sepsis, altered mental status. Pt is A/O x 0-1, he is extremel
[2021-06-19 16:58] LABS: Glucose Point of Care 166 mg/dl (65-105)
--- NOTE | 2021-06-19 18:07 | PC.NURSE ---
Relocated patient to room 256 for safety.
[2021-06-20] VITALS (23 sets, daily range): BP systolic 105–138; BP diastolic 63–99; PULSE 72–150; RESP 20–26; TEMP 36.2–39; O2SAT 94–98
--- NOTE | 2021-06-20 | ECHO_ITS ---
Patient Info Name: Bob Webster Age: 55 years : 1965 Gender: Male Ht: 74 in Wt: 219 lbs BSA: 2.29 m2 HR: 150 bpm Heart Rhythm: Atrial Fibrillation Technical Quality: Fair Exam Date: 06/20/2021 8:39 AM Exam Location: [facility] Patient Status: Inpatient Admit Date: 06/19/2021 Staff Ordering Physician: Jessi Alonso DO Sheriff: Eneida Anna RDCS Attending Provider: Mary Weir PA-C Referring Physician: Celeste GAR; Exam Type: CA echo doppler color flow Study Info Indications - new onset Afib, bacteremia Complete two-dimensional, color flow and Doppler transthoracic echocardiogram is performed. Summary 1. Complete two-dimensional, color flow and Doppler transthoracic echocardiogram is performed. 2. Normal LV size, moderate LVH, variable LV contractility due to atrial fibrillation, ejection fraction 60-70%; indeterminate diastolic function. Mild mitral annular calcification, no significant MR. Mild aortic valve sclerosis, no hemodynamically significant stenosis. Unable to assess RVSP due to inadequate TR jet. Atrial fibrillation with RVR. Left Ventricle Left ventricular systolic function is normal, estimated at 65-70%. There is moderately increased left ventricular wall thickness. Right Ventricle Right ventricular chamber dimension is normal. Right ventricular systolic function is reduced. Left Atria Left atrial chamber dimension is normal. Right Atria Right atrial chamber dimension is normal. Aortic Valve There is mild aortic valve sclerosis. There is no aortic valve stenosis. Pulmonic Valve The pulmonic valve is normal. Mitral Valve The mitral valve annulus is mildly calcified. Tricuspid Valve The tricuspid valve leaflets are normal. Left Ventricular Outflow Tract Name Value Normal LVOT 2D LVOT Diameter 2.1 cm LVOT Doppler LVOT Peak Gradient 11 mmHg LVOT Mean Gradient 6 mmHg LVOT VTI 22 cm LVOT VTI/AV VTI Ratio 1.0 LVOT Stroke Volume 75 ml LVOT CO 5.6 l/min LVOT CI 2.4 l/min/m2 Pulmonic Valve Name Value Normal RVOT Doppler RVOT Peak Gradient 3 mmHg PV Doppler PV Peak Gradient 5 mmHg Mitral Valve Name Value Normal MV Doppler MV Decel Motley 487 cm/s2 MV PHT 50 ms M
[2021-06-20] MEDS: PIPERACILLIN/TAZOBACTAM SOD 4.5 GM in SODIUM CHLORIDE 0.9% IV 100 ML 200 ML IVPB ×4 (00:32→20:16)
[2021-06-20 00:55] LABS: Glucose Point of Care 145 mg/dl (65-105)
[2021-06-20] MEDS: LORazepam INJ (*CRX) 2 MG/ML VIAL 1 MG IM (02:59)
--- NOTE | 2021-06-20 05:24 | ECG_ITS ---
Measurements Intervals Pike Rate: 146 P: DC: 0 QRS: 8 QRSD: 93 T: 8 QT: 263 QTc: 411 Interpretive Statements ATRIAL FIBRILLATION WITH RAPID VENTRICULAR RESPONSE INCOMPLETE RIGHT BUNDLE BRANCH BLOCK BASELINE WANDER- I, II, V2-V6 ABNORMAL ECG Electronically Signed On 06-20-2021 6:29:01 HEPATOLOGY PHYSICIAN by Aris Slater D.O.
[2021-06-20 05:41] LABS: Basophils Percent Auto 0.3 % (0.2-1.2); Hematocrit 39.3 % (42.0-52.0); Hemoglobin 12.7 g/dL (14.0-18.0); Immature Granulocyte Absolute 0.17 K/mm3 (0.00-0.031); Immature Granulocyte Percent A 1.2 % (0-0.5); Lymphocytes Absolute Auto 0.73 K/mm3 (0.9-3.2); Lymphocytes Percent Auto 5.3 % (18.3-44.2); Mean Corpuscular HGB Conc 32.3 g/dl (32-36); Mean Corpuscular Hemoglobin 28.8 pg (26-34); Mean Corpuscular Volume 89.1 fl (80-100); Mean Platelet Volume 9.6 fl (7.4-10.4); Monocytes Absolute Auto 1.2 K/mm3 (0.1-0.6); Monocytes Percent Auto 8.6 % (2.6-8.5); Neutrophils Absolute Auto 11.6 K/mm3 (1.3-6.7); Neutrophils Percent Auto 84.6 % (45.5-73.1); Platelet Count Result 267 k/mm3 (150-375); Red Blood Count 4.41 M/mm3 (4.6-6.20); Red Cell Distribution Width 13.2 % (11.5-14.5); White Blood Count 13.8 K/mm3 (4.5-10.0)
[2021-06-20] MEDS: METOPROLOL TARTRATE INJ 5 MG/5 ML VIAL 2.5 MG IV PUSH (05:54)
--- NOTE | 2021-06-20 05:57 | PC.NURSE ---
Dr Alonso notified pt converted to Afib w/ RVR. Orders for mag level, EKG, and admin of 2.5mg IV lopressor once. Recheck BP and pulse 20 minutes after lopressor admin and call provider if no improvement.
[2021-06-20 06:05] LABS: Alanine Aminotransferase 19 U/L (4-50); Albumin Level 2.9 g/dL (3.5-5.1); Alkaline Phosphatase 136 U/L (38-126); Anion Gap 16 mmol/L (8-16); Aspartate Amino Transferase 33 U/L (17-59); Bilirubin,Total 0.7 mg/dL (0.2-1.3); Blood Urea Nitrogen 29 mg/dL (9-20); Calcium 8.7 mg/dL (8.4-10.2); Carbon Dioxide 16 mmol/L (22-30); Chloride 105 mmol/L (98-107); Estimated CRCL calculation 88 ml/min; Estimated Glomerular Filt Rate > 60; Glucose 199 mg/dL (65-110); Potassium 3.7 mmol/L (3.4-5.0); Sodium 137 mmol/L (137-145)
[2021-06-20 06:10] LABS: Hemoglobin A1C 8.5 % (<5.7)
[2021-06-20 06:12] LABS: Magnesium 2.4 mg/dL (1.6-2.3)
--- NOTE | 2021-06-20 06:36 | PM.EVENT ---
Event Note Event Note Event Note: 06/20/2021 05:30 Hours on the floor evaluating another patient when the patient flipped from sinus tachycardia to AFib RVR. Patient's heart rate was ranging between 130 and 160. The patient was calm and sleeping at the time of the event. He was febrile with temperature up to 102.2 earlier in the evening. Blood pressure was 105/78. Respiratory rate was 18. Order was given for 1 time dose of IV Lopressor 2.5 mg. It did not feel comfortable giving a larger doses the patient is blood pressures were on the lower end of normal. We cannot administer IV Cardizem or IV and motor own on the medical floor. Subsequently, have transfer the patient to the intermediate unit. The patient's blood pressures are soft currently and I suspect that Cardizem would cause further drop in the patient's blood pressures. Since we would know exactly when the patient flipped into AFib RVR it would be safe to convert the patient chemically. Amiodarone bolus and infusion have been ordered per protocol. Will check echocardiogram to look for bacterial endocarditis and to further evaluate the patient's cardiac structure and function given. Of note nursing staff called to notify me the patient's blood cultures were positive for Gram-positive cocci and clusters earlier in the day and the patient's joint aspirate is positive for Gram-negative bacilli. The patient is on antibiotic therapy with daptomycin and Zosyn. The patient remains febrile and septic with persistent lactic acidosis. The patient has persistent metabolic encephalopathy. Patient meets severe sepsis criteria. Condition: Critical Prognosis: Guarded 35 minutes spent in critical care activities. Due to a high probability of clinically significant, life threatening deterioration, the patient required my highest level of preparedness to intervene emergently and I personally spent this critical care time directly and personally managing the patient. This critical care time included obtaining a history; examining the patient; pulse oximetry; ordering and review of studies; arranging urgent treatment with development of a management plan; evaluation of patient's response to treatment; frequent reassessment; and discussions with other providers. It was exclusive of separately billable procedures and treating other patients and teaching time. Please see Assessment and Plan section and the rest of the note for further information on patient assessment and treatment.
--- NOTE | 2021-06-20 07:42 | PC.NURSE ---
This patient, Bob Webster , was received from [facility] on 06/20/21 at 0742. Report received from GELY Grissom. Patient oriented to unit policies and routines
[2021-06-20] MEDS: AMIODARONE 360 MG/D5W 200 ML 360 MG/200 ML BAG 33.33 MG IV CONT (08:01)
[2021-06-20] MEDS: AMIODARONE 150 MG/D5W 100 ML 150 MG/100 ML BAG 600 MG IV CONT (08:01)
[2021-06-20] MEDS: LORazepam INJ (*CRX) 2 MG/ML VIAL 1 MG IV PUSH (08:40)
[2021-06-20 08:52] LABS: Glucose Point of Care 209 mg/dl (65-105)
[2021-06-20] MEDS: INSULIN ASPART (*BKC) 100 UNITS/ML SUB-Q ×2 (09:12→14:18)
[2021-06-20] MEDS: SODIUM CHLORIDE 0.9% IV 1,000 ML 150 ML IV CONT (09:17)
--- NOTE | 2021-06-20 10:08 | PM.CNCAR ---
Assessment and Plan Assessment and plan (1) Atrial fibrillation with RVR: Code(s): I48.91 - Unspecified atrial fibrillation Status: Acute Assessment and Plan: 55-year-old male with poorly controlled diabetes mellitus, diabetic peripheral neuropathy, chronic diabetic foot ulcer, history of MRSA infections; substance abuse (methamphetamine, opiates, marijuana), noncompliance. Patient admitted to the hospital with right foot ulcer and left knee pain; is being treated for sepsis/bacteremia by the primary team. He has been in sinus tachycardia, which is appropriate in the setting of infection. Patient went into atrial fibrillation with RVR. No known prior cardiac history. -continue IV amiodarone, continue to monitor heart rates. Hopefully, with resolution of infection, patient may revert back to sinus rhythm. DCCV for any hemodynamically unstable AFib with RVR. -echocardiogram with Doppler pending. -need and timing for transesophageal echo (ANTHONY) to be determined. (2) Sepsis: Qualifiers: Sepsis acute organ dysfunction status: unspecified Sepsis type: sepsis due to unspecified organism Qualified Code(s): A41.9 - Sepsis, unspecified organism Code(s): A41.9 - Sepsis, unspecified organism Status: Acute Assessment and Plan: Management as per primary team. Appropriate antibiotics, local wound care. (3) Septic arthritis of knee, left: Qualifiers: Septic arthritis organism: due to unspecified organism Qualified Code(s): M00.9 - Pyogenic arthritis, unspecified Code(s): M00.9 - Pyogenic arthritis, unspecified Status: Acute Assessment and Plan: Management per primary team. (4) Metabolic encephalopathy: Code(s): G93.41 - Metabolic encephalopathy Status: Acute Assessment and Plan: In the setting of infection/sepsis, substance abuse. Neuroimaging. Monitor neurological status. Management as per primary team. History of Present Illness History of Present Illness Consult date/time: 06/20/21 10:08 DATE OF CONSULT: 06/20/2021 REASON FOR CONSULT: AFib with RVR REQUESTING PHYSICIAN:Mary Weir PA-C CHIEF COMPLAINT: Left knee pain HPI: 55-year-old male with poorly controlled diabetes mellitus, diabetic peripheral neuropathy, chronic diabetic foot ulcer, history of MRSA infections; substance abuse (methamphetamine, opiates, marijuana), noncompliance. Patient presented to [facility] Emergency Room on 06/18/2021 with complaints of left knee pain and right foot ulcer. He apparently has chronic right foot ulcer. Left knee joint x-ray showed effusion. Blood cultures positive for Gram positive cocci. Chest x-ray unremarkable. He is being treated for sepsis by the primary team. EKG at admission which I personally evaluated showed sinus tachycardia at a heart rate of 128 beats per minute. During hospitalization, patient went into atrial fibrillation with RVR. EKG performed today showed atrial fibrillation with RVR, ventricular rate 146 beats per minute. He has been initiated on IV amiodarone, and currently on telemetry, he is in atrial fibrillation with fluctuating heart rates in 110s to 130s. During hospitalization, patient has reportedly been agitated, and has received benzodiazepines. At the time of evaluation, patient was both somnolent and somewhat agitated. He was unable to provide medical information. Relevant medical information was gathered from review of the chart and from the staff. There are no reports of chest pain or shortness of bed during the hospitalization. Reason For Visit: sepsis, left knee joint infection Review of Systems Review of Systems: Review of systems as per HPI, the of system is difficult to obtain because patient is sedated and in delirium. Information is gathered from extensive the review of the chart and from the staff. Patient has chronic right foot ulcer and left knee swelling. There is no reports of chest pa
[2021-06-20 11:48] LABS: Thyroid Stimulating Hormone Reflex 0.271 uIU/mL (0.465-4.68)
[2021-06-20] MEDS: AMIODARONE 360 MG/D5W 200 ML 360 MG/200 ML BAG 16.67 MG IV CONT (13:00)
--- NOTE | 2021-06-20 13:01 | PM.PNORT ---
Progress Note: A&P Assessment and Plan (1) Atrial fibrillation with RVR: Code(s): I48.91 - Unspecified atrial fibrillation Status: Acute Assessment and Plan: Overnight Cross Coverage events reviewed. Patient now with episodes of AFib with RVR and transferred to the IMU. Cardiology following. Patient will need cardiology clearance prior to proceeding with surgical intervention. (2) Septic arthritis of knee, left: Qualifiers: Septic arthritis organism: streptococcal Qualified Code(s): M00.262 - Other streptococcal arthritis, left knee Code(s): M00.9 - Pyogenic arthritis, unspecified Status: Acute Assessment and Plan: Left knee and blood cultures revealing Streptococcus pneumoniae. patient would benefit from I and D of the left knee joint in the operating room however given current medical condition, would need clearance from Cardiology and hospitalist service prior to proceeding. Continue IV antibiotics per hospitalist (3) Septic arthritis: Qualifiers: Septic arthritis location: foot Septic arthritis organism: due to unspecified organism Laterality: left Qualified Code(s): M00.9 - Pyogenic arthritis, unspecified Code(s): M00.9 - Pyogenic arthritis, unspecified Status: Acute Assessment and Plan: MRI of the right foot revealed non Hodges soft tissue plantar and medial to the head of the 1st metatarsal suspicious for infection or soft tissue necrosis. No wound was present yesterday on exam however today there is a large blood blister on the medial aspect of the hallux. Recommended deep compression bedside. Consent obtained from patient's via telephone by the nursing staff. MRI of the right foot also reveals a a few tiny foci of gas within a crescentic similar region of nonenhancing soft tissue extending along the dorsal, lateral and plantar margins of the head of the fifth metatarsal. large callus covering this wound today. Recommended bedside debridement to allow for further drainage. Wound prepped and debrided under sterile conditions status post consent from . Underlying ulcer measures 2.5 x 1.5 cm with a depth on the plantar aspect to 1.0 cm and dorsal aspect to 2.0 cm. Plan to begin daily dressing changes with silver gel and covered dry. We will consult with wound care nurses pending decision for surgical intervention. Discussed recommendations with hospitalist Mary Weir. Will await further clearance prior to proceeding with surgcial intervention. (4) Cellulitis of right foot: Code(s): L03.115 - Cellulitis of right lower limb Status: Acute Assessment and Plan: Continue IV antibiotics under the direction of the hospitalist service. (5) Type 2 diabetes mellitus: Code(s): E11.9 - Type 2 diabetes mellitus without complications Status: Acute Assessment and Plan: Hemoglobin A1c 8.5 today. After discussion with The patient's , she reports that the patient has had difficulty with mental status changes for the past 2 years. She had he has had symptoms of decreased min take a mistry and memory over the last 2 years. At one point they did see a neurologist and had a brain MRI per patient's report. Patient has difficulty remembering to take his diabetic medication. Diabetic nurse educator will be important prior to discharge pending improvement in medical stability and mental status. Close glycemic control while inpatient. (6) Cellulitis of right foot: Code(s): L03.115 - Cellulitis of right lower limb Status: Acute Additional Plan Reviewed MRI findings of the foot with attending MD, Dr. William Finney as well as microbiology and pathology of both the left knee and right foot. Agreed with bedside debridement for decompression. Will await cardiology and medical clearance prior to proceeding with surgical intervention. Subjective Subjective Date/Time Seen: 06/20/21 12:30 Interval hist
[2021-06-20 13:08] LABS: Glucose Point of Care 233 mg/dl (65-105)
--- NOTE | 2021-06-20 15:25 | PM.PNORT ---
Progress Note: A&P Assessment and Plan (1) Diabetic foot ulcer: Qualifiers: Diabetic foot ulcer location: other Diabetes mellitus type: type 1 Laterality: right Non-pressure ulcer stage: with bone involvement without evidence of necrosis Qualified Code(s): E10.621 - Type 1 diabetes mellitus with foot ulcer; L97.516 - 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 without evidence of necrosis Code(s): E11.621 - Type 2 diabetes mellitus with foot ulcer; L97.509 - Non-pressure chronic ulcer of other part of unspecified foot with unspecified severity Status: Acute (2) Diabetic peripheral neuropathy: Code(s): E11.42 - Type 2 diabetes mellitus with diabetic polyneuropathy Status: Acute (3) Septic arthritis of knee, left: Qualifiers: Septic arthritis organism: streptococcal Qualified Code(s): M00.262 - Other streptococcal arthritis, left knee Code(s): M00.9 - Pyogenic arthritis, unspecified Status: Acute Assessment and Plan: Patient seen and examined. Chart reviewed, history reviewed. CT scan of the left anterior chest performed today. Results noted. Patient currently obtunded. Not awake or alert. Moves extremities to painful stimuli. Does not answer questions. Left knee exam shows mild swelling, no erythema or warmth. No tenderness to palpation. Patient actively moves left leg. Right foot medial and lateral ulceration, status post bedside debridement today with dressing in place. No erythema extending to the ankle or leg. Left anterior chest and neck with swelling and erythema. Blanches to palpation. Patient moves in response to pain with palpation of the area. Right foot chronic diabetic ulcer. Indicated for operative debridement once medically stable. Left knee septic arthritis with strep pneumoniae. Clinically improved after aspiration. May benefit from debridement. Patient hemodynamically and medically unstable. Unable to proceed with surgical treatment for foot or knee to date. Unsure of mediastinum etiology. We will continue to follow. Subjective Subjective Date/Time Seen: 06/20/21 15:25 Exam Const: General: comfortable Neck: Neck: anterior neck swelling (erythema ) Resp: Effort & Inspection: normal respiratory effort Cardio: Rate: tachycardic Rhythm: abnormal rhythm GI: GI Palp: Yes Soft to palpation Skin: Wounds: wounds noted Neuro: Cognition (Neuro): abnormal cognition Extrem: Right lower extremity: foot ( see below) Left lower extremity: knee Details: abnormal to inspection, tenderness Location: of the medial joint line and of the lateral joint line, swelling ( Moderate left knee joint effusion. Tenderness To touch) and abnormal ROM ( Non compliant with exam however pain with passive range of motion.), lower leg Details: normal to inspection; no erythema and no tenderness, ankle Details: normal to inspection and foot ( see below) Other: Patient with continued ulcer over the 5th metatarsal head on the plantar aspect. Wound prepped and debrided under sterile conditions at the bedside. Underlying ulcer noted. Ulcer over the 5th metatarsal head which measures 2.5 x 1.5 with probing 1.0 cm on the plantar aspect of the 4th ray and 2.0 cm on the dorsal aspect down the 5th metatarsal. Patient now has a new swelling of the 1st MTP joint with a large blood blister on the medial aspect of the hallux extending to the plantar aspect of the 1st MTP joint with evidence of blood blistering and callus. Dorsum of the forefoot still with erythema. Mild improvement from yesterday noted. Callus continued on the plantar aspect of the left foot over the 4th metatarsal head. No changes today. Objective Data Vital Signs Vital Signs: Vital Signs - 24 hr 06/19/21 16:00 06/19/21 18:11 06/19/21 18:23 Temperature 100.2 F H 100.2 F H Pulse Rate 113 H 126 H Respiratory Rate 28 H Blood Pressure 149/61 H Pulse Ox
[2021-06-20 16:09] LABS: Alveolar/Arterial O2 Gradient 40.1 mmHg; Base Excess ABG -4.3 mEq/l (+/-2.0); Carboxyhemoglobin 0.3 % THb (0-2.0); Device ROOM AIR; Fractional Inspired Oxygen 21 %; HCO3 ABG 18.3 mEq/l (22.0-26.0); Methemoglobin ABG 0.3 %THb (0-1.5); Modified Allen's Test Pass; Oxygen Content ABG 19.2 %vol (16.0-22.0); Oxyhemoglobin 94.9 % THb (90.0-100.0); PCO2 ABG 27.4 mmHg (35.0-45.0); PO2 ABG 76.8 mmHg (80.0-100.0); PO2 FiO2 Ratio Arterial Blood 3.66 %; Reduced Hemoglobin 4.5 %THb (0-5.0); Site Drawn LEFT RADIAL; Total Hemoglobin 14.4 g/dL (12.0-18.0); pH ABG 7.442 (7.350-7.450)
[2021-06-20] MEDS: SILVERGEL (ELTA) 45 ML 1 APPLIC TOPICAL (16:31)
[2021-06-20 16:52] LABS: Lactic Acid Reflex 1.2 mmol/L (0.7-2.1)
[2021-06-20 16:58] LABS: Glucose Point of Care 169 mg/dl (65-105)
--- NOTE | 2021-06-20 17:31 | PM.IMPN ---
Progress Note: A&P Assessment and Plan (1) Sepsis: Qualifiers: Sepsis type: sepsis due to unspecified organism Sepsis acute organ dysfunction status: with acute organ dysfunction Severe sepsis acute organ dysfunction type: encephalopathy Severe sepsis shock status: without septic shock Qualified Code(s): A41.9 - Sepsis, unspecified organism; R65.20 - Severe sepsis without septic shock; G93.40 - Encephalopathy, unspecified Code(s): A41.9 - Sepsis, unspecified organism Status: Acute (2) Hyponatremia: Code(s): E87.1 - Hypo-osmolality and hyponatremia Status: Acute (3) Cellulitis of right foot: Code(s): L03.115 - Cellulitis of right lower limb Status: Acute (4) Septic arthritis: Qualifiers: Septic arthritis location: foot Septic arthritis organism: due to unspecified organism Laterality: left Qualified Code(s): M00.9 - Pyogenic arthritis, unspecified Code(s): M00.9 - Pyogenic arthritis, unspecified Status: Acute (5) Lactic acidosis: Code(s): E87.2 - Acidosis Status: Acute (6) Type 2 diabetes mellitus with hyperglycemia: Qualifiers: Diabetes mellitus oysterman insulin use: without assisted use Qualified Code(s): E11.65 - Type 2 diabetes mellitus with hyperglycemia Code(s): E11.65 - Type 2 diabetes mellitus with hyperglycemia Status: Acute (7) Metabolic encephalopathy: Code(s): G93.41 - Metabolic encephalopathy Status: Acute Additional Plan Septecemia- Patient meets sepsis criteria on admission with tachycardia, tachypnea, leukocytosis, lactic acidosis and septic arthritis of the left knee and DM wound right foot. Patient received adequate IV fluid hydration in the ER with 2 L normal saline. Will continue IV fluid hydration at 100 mL an hour. Blood cultures and synovial fluid cultures are growing Streptococcus pneumonia. Orthopedic surgery has been consulted and would like to proceed with Left knee I&D and Right DM Wound debridement. Will continue empiric antibiotic therapy with Zosyn and daptomycin #3. DM Wound- Did an MRI which showed Region of nonenhancing soft tissue plantar and medial to the head of the first metatarsal suspicious for infection and soft tissue necrosis but without evident abscess. Small joint effusion at the first metatarsophalangeal joint could represent associated septic arthritis but there is normal marrow signal change at this location to suggest osteomyelitis. Most likely the initial cause of his septic joint and bacteremia. Ortho would like to complete Right DM Wound debridement. Gas forming organism to superior mediastinum-patient has redness, warmth, tenderness and swelling to superior mediastinal area and a CT was completed which showed gas and fluid in this area. After discussing with the radiologist he believes this could be an extension of his infection and has concerns for early infectious mediastinitis with gas-forming organism. He recommended a cardiothoracic consult to be completed. I did call [facility] and talked to their cardiothoracic surgeon on-call Dr. Escobar and with speaking over the phone and him not reviewing images at that time he did not believe this was concerning for mediastinitis at this time. He did recommend talking to the Hospitalist Service at [facility]. [facility] called back with the ICU Certified [employer]venile [employer]ation Officer who did accept the patient in transfer given his history and being on an Amiodarone drip. Accepting physician Dr. Guardado. Afib with RVR-patient and AFib RVR overnight. He was transferred to the IMU and placed on IV amiodarone drip. Currently he is still in AFib and rate is controlled. Cardiology was consulted and appreciate their recommendations at this time. Patient has chronic hyponatremia. His sodium is normal today. Continue IV fluids. Will repeat BMP AM. The patient is confused I suspect this is due to metabolic encephalopathy. He does not hav
[2021-06-20 17:32] LABS: Free T4 Free Thyroxine Reflex 1.05 ng/dL (0.78-2.19)
[2021-06-20] MEDS: SODIUM CHLORIDE 0.9% IV 1,000 ML 100 ML IV CONT (20:14)
[2021-06-20] MEDS: KETOROLAC 30 MG/ML VIAL (*BKC) IV PUSH (20:15)
[2021-06-20 20:32] LABS: Total Triiodothyronine (T3) 0.54 NG/ML (0.97-1.69)
[2021-06-20 21:18] LABS: Glucose Point of Care 167 mg/dl (65-105)
[2021-06-21] VITALS (13 sets, daily range): BP systolic 112–134; BP diastolic 54–76; PULSE 72–85; RESP 20–26; TEMP 36.6–37.1; O2SAT 98–100
[2021-06-21] MEDS: PIPERACILLIN/TAZOBACTAM SOD 4.5 GM in SODIUM CHLORIDE 0.9% IV 100 ML 200 ML IVPB ×4 (00:07→17:21)
[2021-06-21] MEDS: AMIODARONE 360 MG/D5W 200 ML 360 MG/200 ML BAG 16.67 MG IV CONT (00:09)
[2021-06-21] MEDS: KETOROLAC 30 MG/ML VIAL (*BKC) IV PUSH ×2 (02:48→14:15)
[2021-06-21] MEDS: SODIUM CHLORIDE 0.9% IV 1,000 ML 100 ML IV CONT ×2 (05:37→17:21)
[2021-06-21 08:29] LABS: Glucose Point of Care 158 mg/dl (65-105)
[2021-06-21 08:57] LABS: Basophils Percent Auto 0.2 % (0.2-1.2); Eosinophils Percent Auto 0.1 % (0-4.4); Hemoglobin 11.9 g/dL (14.0-18.0); Immature Granulocyte Absolute 0.08 K/mm3 (0.00-0.031); Immature Granulocyte Percent A 0.8 % (0-0.5); Lymphocytes Absolute Auto 0.91 K/mm3 (0.9-3.2); Lymphocytes Percent Auto 9.5 % (18.3-44.2); Mean Corpuscular HGB Conc 32.2 g/dl (32-36); Mean Corpuscular Hemoglobin 29.1 pg (26-34); Mean Corpuscular Volume 90.5 fl (80-100); Mean Platelet Volume 9.4 fl (7.4-10.4); Monocytes Absolute Auto 0.7 K/mm3 (0.1-0.6); Monocytes Percent Auto 7.2 % (2.6-8.5); Neutrophils Absolute Auto 7.8 K/mm3 (1.3-6.7); Neutrophils Percent Auto 82.2 % (45.5-73.1); Platelet Count Result 233 k/mm3 (150-375); Red Blood Count 4.09 M/mm3 (4.6-6.20); Red Cell Distribution Width 13.6 % (11.5-14.5); White Blood Count 9.5 K/mm3 (4.5-10.0)
[2021-06-21 09:23] LABS: Alanine Aminotransferase 21 U/L (4-50); Albumin Level 2.8 g/dL (3.5-5.1); Alkaline Phosphatase 114 U/L (38-126); Anion Gap 11 mmol/L (8-16); Aspartate Amino Transferase 37 U/L (17-59); Bilirubin,Total 0.6 mg/dL (0.2-1.3); Blood Urea Nitrogen 38 mg/dL (9-20); Calcium 8.4 mg/dL (8.4-10.2); Carbon Dioxide 20 mmol/L (22-30); Chloride 106 mmol/L (98-107); Estimated CRCL calculation 88 ml/min; Estimated Glomerular Filt Rate > 60; Glucose 162 mg/dL (65-110); Potassium 3.4 mmol/L (3.4-5.0); Sodium 137 mmol/L (137-145)
[2021-06-21 09:30] LABS: CRP 23.9 mg/dL (<1.0)
--- NOTE | 2021-06-21 09:53 | PM.IMPN ---
Progress Note: A&P Assessment and Plan (1) Sepsis: Qualifiers: Sepsis type: sepsis due to unspecified organism Sepsis acute organ dysfunction status: with acute organ dysfunction Severe sepsis acute organ dysfunction type: encephalopathy Severe sepsis shock status: without septic shock Qualified Code(s): A41.9 - Sepsis, unspecified organism; R65.20 - Severe sepsis without septic shock; G93.40 - Encephalopathy, unspecified Code(s): A41.9 - Sepsis, unspecified organism Status: Acute Assessment and Plan: On admission patient meets sepsis criteria. Currently being treated for with right ankle wound, was found to have fluid collection to the the left knee which has been drained. Blood culture and synovial fluid cultures are growing Streptococcus pneumoniae. Patient was appropriately started on daptomycin and zosyn. Currently found to have a fluid collection of the anterior chest. Due to concern of about the possibility of mediastinum it was, arrangement were made to transfer the patient to higher level of care. Unfortunately due to the current pandemic, patient is to remain in our facility while awaiting for a bed. He is currently at waitlisted at [facility]. Continue antibiotic. Altered mentation likely secondary to benzodiazepine is currently resolving. Avoid sedative hypnotic medication. (2) Hyponatremia: Code(s): E87.1 - Hypo-osmolality and hyponatremia Status: Acute Assessment and Plan: This has resolved. Serum sodium is 137 today. (3) Cellulitis of right foot: Code(s): L03.115 - Cellulitis of right lower limb Status: Acute Assessment and Plan: Current continue wound care and IV antibiotics. Currently blood culture growing Streptococcus pneumonia. (4) Septic arthritis: Qualifiers: Septic arthritis location: foot Septic arthritis organism: due to unspecified organism Laterality: left Qualified Code(s): M00.9 - Pyogenic arthritis, unspecified Code(s): M00.9 - Pyogenic arthritis, unspecified Status: Acute Assessment and Plan: Left knee septic arthritis, status post I&D. Continue IV antibiotics. (5) Lactic acidosis: Code(s): E87.2 - Acidosis Status: Acute Assessment and Plan: Patient hemodynamically stable. Lactate elevated at presentation at 3.1. Repeat lactate is 1.2. 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 Accu-Chek in the 145-233 range. (7) Metabolic encephalopathy: Code(s): G93.41 - Metabolic encephalopathy Status: Acute Additional Plan Septicemia- Patient meets sepsis criteria on admission with tachycardia, tachypnea, leukocytosis, lactic acidosis and septic arthritis of the left knee and DM wound right foot. Patient received adequate IV fluid hydration in the ER with 2 L normal saline. Will continue IV fluid hydration at 100 mL an hour. Blood cultures and synovial fluid cultures are growing Streptococcus pneumonia. Orthopedic surgery has been consulted and would like to proceed with Left knee I&D and Right DM Wound debridement. Continue broad-spectrum antibiotic therapy with Zosyn and daptomycin #3. DM Wound- MRI showed Region of nonenhancing soft tissue plantar and medial to the head of the first metatarsal suspicious for infection and soft tissue necrosis but without obvious abscess. Small joint effusion at the first metatarsophalangeal joint could represent associated septic arthritis but there is normal marrow signal change at this location to suggest osteomyelitis. Patient currently being managed by Orthopedic surgery. He is status post I&D of the l
[2021-06-21 12:20] LABS: Glucose Point of Care 177 mg/dl (65-105)
--- NOTE | 2021-06-21 12:31 | PM.PNCARD ---
Progress Note: A&P Assessment and Plan (1) Atrial fibrillation with RVR: Code(s): I48.91 - Unspecified atrial fibrillation Status: Acute Assessment and Plan: 55-year-old male with poorly controlled diabetes mellitus, diabetic peripheral neuropathy, chronic diabetic foot ulcer, history of MRSA infections; substance abuse (methamphetamine, opiates, marijuana), noncompliance. Patient admitted to the hospital with right foot ulcer and left knee pain; is being treated for sepsis/bacteremia by the primary team. He has been in sinus tachycardia, which is appropriate in the setting of infection. No known prior cardiac history. Remains in sinus rhythm. Complete amiodarone infusion. We will replace potassium 40 mEq p.o. x1. (2) Sepsis: Qualifiers: Sepsis acute organ dysfunction status: unspecified Sepsis type: sepsis due to unspecified organism Qualified Code(s): A41.9 - Sepsis, unspecified organism Code(s): A41.9 - Sepsis, unspecified organism Status: Acute Assessment and Plan: Management as per primary team. Appropriate antibiotics, local wound care. (3) Septic arthritis of knee, left: Qualifiers: Septic arthritis organism: streptococcal Qualified Code(s): M00.262 - Other streptococcal arthritis, left knee Code(s): M00.9 - Pyogenic arthritis, unspecified Status: Acute Assessment and Plan: Management per primary team. (4) Metabolic encephalopathy: Code(s): G93.41 - Metabolic encephalopathy Status: Acute Assessment and Plan: In the setting of infection/sepsis, substance abuse. Neuroimaging. Monitor neurological status. Management as per primary team. Subjective Date/time seen: 06/21/21 12:31 Interval history: 55-year-old who we were consult because of atrial fibrillation Date of service 06/21/2021: He is feeling better. He is back in sinus rhythm. No chest pain or shortness of breath Review of Systems Review of Systems: All systems reviewed & are unremarkable except as noted in HPI and below Constitutional: Constitutional: Denies weakness Eyes: Eyes: Denies blurry vision ENT: Reports Normal hearing present Cardiovascular: Cardiovascular: Denies chest pain Respiratory: Respiratory: Denies dyspnea Gastrointestinal: Gastrointestinal: Denies abdominal pain Genitourinary: Genitourinary: Denies dysuria Musculoskeletal: Musculoskeletal: Denies neck pain Integumentary/Breasts: Skin/Breast: Denies dry skin Neurologic: Denies headache(s) Psychiatric: Psychiatric: Denies anxiety Endocrine: Endocrine: Denies change in body appearance Hematologic/Lymphatic: Hematologic/Lymphatic: Denies easy bleeding Allergic/Immunologic: Allergic/Immunologic: Denies GI upset with certain foods Exam Narrative: PHYSICAL EXAMINATION: GENERAL: More awake alert today MENTAL STATUS: Responsive and answering questions EYES: Eyes closed EARS: External ears appear normal NOSE: Normal and patent, no discharge MOUTH: Edentulous NECK: Supple, no JVD CHEST: Clear to auscultation HEART: Regular rate rhythm ABDOMEN: Soft NEUROLOGICAL: Answering questions MUSCULOSKELETAL: Right foot ulcer with bandage in place; left knee swollen EXTREMITIES: Right foot ulcer with bandage in place; left knee swollen SKIN: Tattoos on the arms PSYCHIATRIC: More awake alert today Objective Data Vital Signs Vital Signs: Vital Signs - 24 hr 06/20/21 13:00 06/20/21 14:00 06/20/21 15:48 Temperature 36.6 C Pulse Rate 96 97 107 H Respiratory Rate 20 Blood Pressure 138/63 Pulse Oximetry 98 06/20/21 16:00 06/20/21 16:07 06/20/21 17:38 Temperature 38.4 C H 37.3 C Pulse Rate 90 Respiratory Rate Blood Pressure Pulse Oximetry 06/20/21 18:38 06/20/21 20:00 06/20/21 22:00 Temperature 36.2 C L Pulse Rate 92 98 94 Respiratory Rate 26 H 26 H Blood Pressure 112/65 Pulse Oximetry 98 98 06/20
[2021-06-21] MEDS: traMADol HCL (*CRX) 50 MG TABLET PO ×2 (12:46→20:29)
[2021-06-21] MEDS: POTASSIUM CHLORIDE 20 MEQ TABLET 40 MEQ PO (12:46)
[2021-06-21] MEDS: NICOTINE (*PBKC) 21 MG PATCH 1 PATCH TRANSDERM (12:52)
[2021-06-21] MEDS: INSULIN ASPART (*BKC) 100 UNITS/ML SUB-Q (17:22)
[2021-06-21 17:53] LABS: Glucose Point of Care 283 mg/dl (65-105)
[2021-06-22] VITALS (12 sets, daily range): BP systolic 125–157; BP diastolic 62–83; PULSE 83–110; RESP 16–22; TEMP 36.4–37.1; O2SAT 98–100
[2021-06-22] MEDS: PIPERACILLIN/TAZOBACTAM SOD 4.5 GM in SODIUM CHLORIDE 0.9% IV 100 ML 200 ML IVPB ×4 (00:10→17:10)
[2021-06-22] MEDS: KETOROLAC 30 MG/ML VIAL (*BKC) IV PUSH (00:13)
[2021-06-22] MEDS: SODIUM CHLORIDE 0.9% IV 1,000 ML 100 ML IV CONT (06:25)
[2021-06-22 09:02] LABS: Glucose Point of Care 137 mg/dl (65-105)
--- NOTE | 2021-06-22 09:02 | PM.IMPN ---
Progress Note: A&P Assessment and Plan (1) Sepsis: Qualifiers: Sepsis acute organ dysfunction status: with acute organ dysfunction Sepsis type: sepsis due to unspecified organism Severe sepsis acute organ dysfunction type: encephalopathy Severe sepsis shock status: without septic shock Qualified Code(s): A41.9 - Sepsis, unspecified organism; R65.20 - Severe sepsis without septic shock; G93.40 - Encephalopathy, unspecified Code(s): A41.9 - Sepsis, unspecified organism Status: Acute Assessment and Plan: Patient is improving. He remains stable and afebrile for the last 48 hours. On admission patient meets sepsis criteria. Currently being treated for with right ankle wound, was found to have fluid collection to the the left knee which has been drained. Blood culture and synovial fluid cultures are growing Streptococcus pneumoniae. Patient was appropriately started on daptomycin and zosyn. Currently found to have a fluid collection of the anterior chest. Due to concern of about the possibility of mediastinitis, arrangement were made to transfer the patient to higher level of care. Unfortunately due to the current pandemic, patient is to remain in our facility while awaiting for a bed. He is currently at waitlisted at [facility]. Continue IV antibiotic. Altered mentation likely secondary to benzodiazepine is currently resolving; patient appears back to his baseline. Avoid sedative hypnotic medication. (2) Hyponatremia: Code(s): E87.1 - Hypo-osmolality and hyponatremia Status: Acute Assessment and Plan: This has resolved. Serum sodium is 137 yesterday. (3) Cellulitis of right foot: Code(s): L03.115 - Cellulitis of right lower limb Status: Acute Assessment and Plan: Current continue wound care and IV antibiotics. Currently blood culture growing Streptococcus pneumonia. Repeat blood cultures 2 more. (4) Septic arthritis: Qualifiers: Laterality: left Septic arthritis location: foot Septic arthritis organism: due to unspecified organism Qualified Code(s): M00.9 - Pyogenic arthritis, unspecified Code(s): M00.9 - Pyogenic arthritis, unspecified Status: Acute Assessment and Plan: Left knee septic arthritis, status post I&D. Continue IV antibiotics. (5) Lactic acidosis: Code(s): E87.2 - Acidosis Status: Acute Assessment and Plan: Patient hemodynamically stable. Lactate elevated at presentation at 3.1. Repeat lactate is 1.2. 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 Accu-Chek in the 137-283 range. Oral intake is improving. Will start glargine 10 units daily today. (7) Metabolic encephalopathy: Code(s): G93.41 - Metabolic encephalopathy Status: Acute Assessment and Plan: Likely secondary to sepsis, sedative medication. Resolved. Additional Plan Septicemia- Patient meets sepsis criteria on admission with tachycardia, tachypnea, leukocytosis, lactic acidosis and septic arthritis of the left knee and DM wound right foot. Patient received adequate IV fluid hydration in the ER with 2 L normal saline. He was maintained on IV fluid hydration at 100 mL an hour. Blood cultures and synovial fluid cultures are growing Streptococcus pneumonia. Orthopedic surgery has been consulted and would like to proceed with Left knee I&D and Right DM Wound debridement. Continue broad-spectrum antibiotic therapy with Zosyn and daptomycin #4.: P.o. Intake is improving. Repeat cultures on unrevealing. We will stop IV fluids. DM Wound- MRI showed Region of nonenhancing soft tissue plantar
[2021-06-22] MEDS: NICOTINE (*PBKC) 21 MG PATCH 1 PATCH TRANSDERM (09:05)
[2021-06-22 09:39] LABS: Basophils Percent Auto 0.2 % (0.2-1.2); Eosinophils Percent Auto 0.1 % (0-4.4); Hemoglobin 12.9 g/dL (14.0-18.0); Immature Granulocyte Absolute 0.11 K/mm3 (0.00-0.031); Lymphocytes Absolute Auto 0.69 K/mm3 (0.9-3.2); Lymphocytes Percent Auto 6.4 % (18.3-44.2); Mean Corpuscular HGB Conc 33.1 g/dl (32-36); Mean Corpuscular Hemoglobin 29.3 pg (26-34); Mean Corpuscular Volume 88.4 fl (80-100); Mean Platelet Volume 9.5 fl (7.4-10.4); Monocytes Absolute Auto 0.7 K/mm3 (0.1-0.6); Monocytes Percent Auto 6.6 % (2.6-8.5); Neutrophils Absolute Auto 9.2 K/mm3 (1.3-6.7); Neutrophils Percent Auto 85.7 % (45.5-73.1); Platelet Count Result 259 k/mm3 (150-375); Red Blood Count 4.41 M/mm3 (4.6-6.20); Red Cell Distribution Width 13.5 % (11.5-14.5); White Blood Count 10.8 K/mm3 (4.5-10.0)
[2021-06-22 09:54] LABS: Alanine Aminotransferase 24 U/L (4-50); Alkaline Phosphatase 137 U/L (38-126); Anion Gap 9 mmol/L (8-16); Aspartate Amino Transferase 43 U/L (17-59); Bilirubin,Total 1.1 mg/dL (0.2-1.3); Blood Urea Nitrogen 23 mg/dL (9-20); Calcium 8.3 mg/dL (8.4-10.2); Carbon Dioxide 22 mmol/L (22-30); Chloride 102 mmol/L (98-107); Estimated CRCL calculation 108 ml/min; Estimated Glomerular Filt Rate > 60; Glucose 142 mg/dL (65-110); Potassium 3.5 mmol/L (3.4-5.0); Sodium 133 mmol/L (137-145)
[2021-06-22] MEDS: INSULIN GLARGINE (*BKC) 100 UNITS/ML 15 UNITS SUB-Q (10:07)
[2021-06-22] MEDS: HYDROcodone/acetaminophen (*CRX) 5-325 MG TABLET 1 TAB PO ×2 (10:07→18:19)
--- NOTE | 2021-06-22 11:32 | PM.PNCARD ---
Progress Note: A&P Assessment and Plan (1) Atrial fibrillation with RVR: Code(s): I48.91 - Unspecified atrial fibrillation Status: Acute Assessment and Plan: 55-year-old male with poorly controlled diabetes mellitus, diabetic peripheral neuropathy, chronic diabetic foot ulcer, history of MRSA infections; substance abuse (methamphetamine, opiates, marijuana), noncompliance. Patient admitted to the hospital with right foot ulcer and left knee pain; is being treated for sepsis/bacteremia by the primary team. He has been in sinus tachycardia, which is appropriate in the setting of infection. No known prior cardiac history. Remains in sinus rhythm. DC IV amiodarone. Remains in sinus rhythm. Will replace potassium with the another 40 mEq p.o. x1. Will start low-dose metoprolol tartrate 12.5 mg p.o. b.i.d. (2) Sepsis: Qualifiers: Sepsis acute organ dysfunction status: unspecified Sepsis type: sepsis due to unspecified organism Qualified Code(s): A41.9 - Sepsis, unspecified organism Code(s): A41.9 - Sepsis, unspecified organism Status: Acute Assessment and Plan: Management as per primary team. Appropriate antibiotics, local wound care. (3) Septic arthritis of knee, left: Qualifiers: Septic arthritis organism: streptococcal Qualified Code(s): M00.262 - Other streptococcal arthritis, left knee Code(s): M00.9 - Pyogenic arthritis, unspecified Status: Acute Assessment and Plan: Management per primary team. (4) Metabolic encephalopathy: Code(s): G93.41 - Metabolic encephalopathy Status: Acute Assessment and Plan: In the setting of infection/sepsis, substance abuse. Neuroimaging. Monitor neurological status. Management as per primary team. Subjective Date/time seen: 06/22/21 11:32 Interval history: 55-year-old who we were consult because of atrial fibrillation Date of service 06/21/2021: He is feeling better. He is back in sinus rhythm. No chest pain or shortness of breath Date of service 06/22/2021: He is still doing better than previous. Still in sinus rhythm. No chest pain Review of Systems Review of Systems: All systems reviewed & are unremarkable except as noted in HPI and below Constitutional: Constitutional: Denies headache(s) and Denies weakness Eyes: Eyes: Denies blurry vision ENT: Reports Normal hearing present, Denies headache(s) and Denies neck pain Cardiovascular: Cardiovascular: Denies chest pain and Denies dyspnea Respiratory: Respiratory: Denies dyspnea Gastrointestinal: Gastrointestinal: Denies abdominal pain Genitourinary: Genitourinary: Denies dysuria Musculoskeletal: Musculoskeletal: Denies neck pain Integumentary/Breasts: Skin/Breast: Denies dry skin Neurologic: Reports Normal hearing present, Denies headache(s) and Denies weakness Psychiatric: Psychiatric: Denies anxiety Endocrine: Endocrine: Denies change in body appearance Hematologic/Lymphatic: Hematologic/Lymphatic: Denies easy bleeding Allergic/Immunologic: Allergic/Immunologic: Denies GI upset with certain foods Exam Narrative: PHYSICAL EXAMINATION: GENERAL: More awake alert today MENTAL STATUS: Responsive and answering questions EYES: Eyes closed EARS: External ears appear normal NOSE: Normal and patent, no discharge MOUTH: Edentulous NECK: Supple, no JVD CHEST: Clear to auscultation HEART: Regular rate rhythm ABDOMEN: Soft NEUROLOGICAL: Answering questions MUSCULOSKELETAL: Right foot ulcer with bandage in place; left knee swollen EXTREMITIES: Right foot ulcer with bandage in place; left knee swollen SKIN: Tattoos on the arms PSYCHIATRIC: More awake alert today Objective Data Vital Signs Vital Signs: Vital Signs - 24 hr 06/21/21 12:00 06/21/21 14:00 06/21/21 16:00 Temperature 37.0 C 36.9 C Pulse Rate 81 83 82 Respiratory Rate 20 20 Blood Pressure 134/76 112/56 L Pulse Oximetr
[2021-06-22] MEDS: POTASSIUM CHLORIDE 20 MEQ TABLET 40 MEQ PO (12:04)
[2021-06-22] MEDS: HEPARIN SODIUM 5,000 UNITS/ML VIAL 5000 UNITS SUB-Q ×2 (12:04→21:58)
[2021-06-22 12:19] LABS: Glucose Point of Care 178 mg/dl (65-105)
[2021-06-22 12:48] LABS: Magnesium 2.3 mg/dL (1.6-2.3)
[2021-06-22] MEDS: traMADol HCL (*CRX) 50 MG TABLET PO ×2 (12:51→23:53)
[2021-06-22] MEDS: HYDROmorphone HCL (*CRX) 2 MG TABLET PO ×2 (15:38→20:25)
[2021-06-22 17:07] LABS: Glucose Point of Care 232 mg/dl (65-105)
[2021-06-22] MEDS: INSULIN ASPART (*BKC) 100 UNITS/ML SUB-Q (17:10)
[2021-06-22] MEDS: METOPROLOL TARTRATE 12.5 MG TABLET PO (20:24)
[2021-06-22 20:50] LABS: Glucose Point of Care 105 mg/dl (65-105)
[2021-06-23] VITALS (11 sets, daily range): BP systolic 129–155; BP diastolic 63–78; PULSE 88–107; RESP 18–22; TEMP 36.1–37.2; O2SAT 94–100
[2021-06-23] MEDS: PIPERACILLIN/TAZOBACTAM SOD 4.5 GM in SODIUM CHLORIDE 0.9% IV 100 ML 200 ML IVPB ×4 (00:30→18:30)
[2021-06-23] MEDS: HYDROmorphone HCL INJ (*CRX) 1 MG/ML SYR (00:41)
[2021-06-23] MEDS: HYDROmorphone HCL INJ (*CRX) 1 MG/ML SYR IV PUSH (00:42)
[2021-06-23] MEDS: HEPARIN SODIUM 5,000 UNITS/ML VIAL 5000 UNITS SUB-Q ×3 (06:24→21:34)
--- NOTE | 2021-06-23 07:50 | PM.IMPN ---
Progress Note: A&P Assessment and Plan (1) Sepsis: Qualifiers: Sepsis type: sepsis due to unspecified organism Sepsis acute organ dysfunction status: with acute organ dysfunction Severe sepsis acute organ dysfunction type: encephalopathy Severe sepsis shock status: without septic shock Qualified Code(s): A41.9 - Sepsis, unspecified organism; R65.20 - Severe sepsis without septic shock; G93.40 - Encephalopathy, unspecified Code(s): A41.9 - Sepsis, unspecified organism Status: Acute Assessment and Plan: Patient is improving clinically. He remains stable and afebrile for the last 72 hours. He has reverted to normal sinus rhythm and is maintained on low-dose metoprolol. On admission patient met sepsis criteria. Currently being treated for with right ankle wound, was found to have fluid collection to the the left knee which has been drained, and similar fluid collection found on the anterior chest. Blood culture and synovial fluid cultures are growing Streptococcus pneumoniae. Wound culture is growing peptostreptococcus and MRSA. Patient was appropriately started on daptomycin and zosyn. Due to the fluid collection of the anterior chest, there is an ongoing concern of about the possibility of mediastinitis, arrangement were made to transfer the patient to higher level of care. Unfortunately due to the current pandemic, patient is to remain in our facility while awaiting for a bed. He is currently at waitlisted at [facility]. Continue IV antibiotic. Altered mentation likely secondary to benzodiazepine is currently resolving; patient appears back to his baseline. Avoid sedative hypnotic medication. (2) Cellulitis of right foot: Code(s): L03.115 - Cellulitis of right lower limb Status: Acute Assessment and Plan: Current continue wound care and IV antibiotics. Currently blood culture growing Streptococcus pneumonia. Repeat blood culture from June 20, 2021 are unrevealing. Follow-up repeat blood cultures today. (3) Atrial fibrillation with RVR: Code(s): I48.91 - Unspecified atrial fibrillation Status: Acute Assessment and Plan: Patient was briefly on amiodarone drip. He converted to normal sinus rhythm. Per Cardiology recommendation was started on low-dose metoprolol 12.5 mg p.o. b.i.d.. (4) Hyponatremia: Code(s): E87.1 - Hypo-osmolality and hyponatremia Status: Acute Assessment and Plan: mild hyponatremia with a serum sodium of 133 yesterday. Today serum sodium is pending. (5) Septic arthritis: Qualifiers: Septic arthritis location: foot Septic arthritis organism: due to unspecified organism Laterality: left Qualified Code(s): M00.9 - Pyogenic arthritis, unspecified Code(s): M00.9 - Pyogenic arthritis, unspecified Status: Acute Assessment and Plan: Left knee septic arthritis, status post I&D. Continue IV antibiotics. (6) Lactic acidosis: Code(s): E87.2 - Acidosis Status: Acute Assessment and Plan: Resolved. Patient hemodynamically stable. Lactate elevated at presentation at 3.1. Repeat lactate is 1.2. (7) Type 2 diabetes mellitus with hyperglycemia: Qualifiers: Diabetes mellitus long term care pharmacist insulin use: without usp use Qualified Code(s): E11.65 - Type 2 diabetes mellitus with hyperglycemia Code(s): E11.65 - Type 2 diabetes mellitus with hyperglycemia Status: Acute Assessment and Plan: Currently patient is being managed with insulin sliding scale. Accu-Chek improving in the 105-to 32 range. Oral intake is improving. Glargine was increased to 15 units daily yesterday. (8) Metabolic encephalopathy: Code(s): G93.41 - Metabolic encephalopathy Status: Acute Assessment and Plan: Likely secondary to sepsis, sedative medication. Patient is slowly improving. Additional Plan Septicemia- Patient meets sepsis criteria on admission with tachycardia,
[2021-06-23 08:01] LABS: Basophils Percent Auto 0.2 % (0.2-1.2); Hematocrit 41.3 % (42.0-52.0); Hemoglobin 13.4 g/dL (14.0-18.0); Immature Granulocyte Absolute 0.16 K/mm3 (0.00-0.031); Immature Granulocyte Percent A 1.3 % (0-0.5); Lymphocytes Absolute Auto 0.78 K/mm3 (0.9-3.2); Lymphocytes Percent Auto 6.3 % (18.3-44.2); Mean Corpuscular HGB Conc 32.4 g/dl (32-36); Mean Corpuscular Hemoglobin 28.8 pg (26-34); Mean Corpuscular Volume 88.8 fl (80-100); Mean Platelet Volume 9.4 fl (7.4-10.4); Monocytes Absolute Auto 0.8 K/mm3 (0.1-0.6); Monocytes Percent Auto 6.8 % (2.6-8.5); Neutrophils Absolute Auto 10.5 K/mm3 (1.3-6.7); Neutrophils Percent Auto 85.4 % (45.5-73.1); Platelet Count Result 278 k/mm3 (150-375); Red Blood Count 4.65 M/mm3 (4.6-6.20); Red Cell Distribution Width 13.5 % (11.5-14.5); White Blood Count 12.3 K/mm3 (4.5-10.0)
[2021-06-23 08:06] LABS: Glucose Point of Care 107 mg/dl (65-105)
[2021-06-23 08:15] LABS: Anion Gap 9 mmol/L (8-16); Blood Urea Nitrogen 15 mg/dL (9-20); Calcium 8.4 mg/dL (8.4-10.2); Carbon Dioxide 22 mmol/L (22-30); Chloride 100 mmol/L (98-107); Estimated CRCL calculation 108 ml/min; Estimated Glomerular Filt Rate > 60; Glucose 110 mg/dL (65-110); Potassium 3.9 mmol/L (3.4-5.0); Sodium 131 mmol/L (137-145)
[2021-06-23] MEDS: INSULIN GLARGINE (*BKC) 100 UNITS/ML 15 UNITS SUB-Q (08:53)
[2021-06-23] MEDS: LIDOCAINE 5% PATCH 2 PATCH TRANSDERM (08:54)
[2021-06-23] MEDS: METOPROLOL TARTRATE 12.5 MG TABLET PO ×2 (08:54→21:35)
[2021-06-23] MEDS: NICOTINE (*PBKC) 21 MG PATCH 1 PATCH TRANSDERM (08:55)
[2021-06-23] MEDS: SILVERGEL (ELTA) 45 ML 1 APPLIC TOPICAL (08:56)
[2021-06-23] MEDS: HYDROcodone/acetaminophen (*CRX) 5-325 MG TABLET 1 TAB PO ×2 (08:57→18:33)
--- NOTE | 2021-06-23 09:41 | PM.PNORT ---
Progress Note: A&P Assessment and Plan (1) Diabetic foot ulcer: Qualifiers: Diabetic foot ulcer location: other Diabetes mellitus type: type 1 Laterality: right Non-pressure ulcer stage: with bone involvement without evidence of necrosis Qualified Code(s): E10.621 - Type 1 diabetes mellitus with foot ulcer; L97.516 - 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 without evidence of necrosis Code(s): E11.621 - Type 2 diabetes mellitus with foot ulcer; L97.509 - Non-pressure chronic ulcer of other part of unspecified foot with unspecified severity Status: Acute Assessment and Plan: debridement done 3 days ago. Dressing changed today. Overall foot with less erythema and less swelling. No active drainage and appears stable for now. Continue with dressing changes and antibiotics. (2) Septic arthritis of knee, left: Qualifiers: Septic arthritis organism: streptococcal Qualified Code(s): M00.262 - Other streptococcal arthritis, left knee Code(s): M00.9 - Pyogenic arthritis, unspecified Status: Acute Assessment and Plan: Residual knee swelling. No erythema or warmth. Improvement noted after aspiration and antibiotics. Continue with IV antibiotics at this time. (3) Abscess of chest: Code(s): J86.9 - Pyothorax without fistula Status: Acute Assessment and Plan: still with redness and swelling over the proximal sternum and left side neck. Tenderness to palpation. This is out of my area of treatment recommendation. Discussed with hospitalist. Patient currently on intravenous antibiotics. Awaiting transfer to tertiary care center. Subjective Subjective Date/Time Seen: 06/23/21 09:41 Principal diagnosis: Right diabetic foot ulcer, left knee septic arthritis Interval history: patient awake and oriented to self only. Mild complaints of right foot pain. Complains of left knee and neck pain. Exam Const: General: comfortable Neck: Neck: anterior neck swelling (erythema ) Resp: Effort & Inspection: normal respiratory effort Cardio: Rate: tachycardic Rhythm: abnormal rhythm GI: GI Palp: Yes Soft to palpation Skin: Wounds: wounds noted Neuro: Cognition (Neuro): abnormal cognition Extrem: Right lower extremity: foot ( see below) Left lower extremity: knee Details: tenderness Location: of the medial joint line and of the lateral joint line, swelling (Moderate left knee joint effusion. Tenderness To touch), abnormal ROM ( Non compliant with exam however pain with passive range of motion.) and other ( No erythema); no ecchymosis and no unusual warmth, lower leg Details: normal to inspection; no erythema and no tenderness, ankle Details: normal to inspection and foot ( see below) Other: ulcer over the 5th metatarsal head on the plantar aspect measures 2.5 x 1.5 with probing 1.0 cm on the plantar aspect of the 4th ray and 2.0 cm on the dorsal aspect down the 5th metatarsal. Erythema and swelling improved. No active drainage. 1st MTP joint with Eschar on the medial aspect of the hallux extending to the plantar aspect of the 1st MTP joint. mild surrounding erythema. Swelling improved. No active drainage. Dorsum forefoot erythema improvement noted. Objective Data Vital Signs Vital Signs: Vital Signs - 24 hr 06/22/21 10:00 06/22/21 12:00 06/22/21 14:00 Temperature 97.5 F L Pulse Rate 99 100 100 Respiratory Rate 18 Blood Pressure 149/80 H Pulse Oximetry 98 06/22/21 16:00 06/22/21 20:00 06/22/21 20:24 Temperature 98.0 F 98.2 F Pulse Rate 102 H 105 H 107 H Respiratory Rate 16 18 Blood Pressure 157/81 H 155/83 H Pulse Oximetry 100 100 06/22/21 22:00 06/23/21 00:00 06/23/21 02:00 Temperature 97 F L Pulse Rate 95 103 H 102 H Respiratory Rate 18 Blood Pressure 146/74 H Pulse Oximetry 99 06/23/21 03:37 06/23/21 04:00 06/23/21 08:00 Temperature 97.5 F L 98.3 F Pulse R
--- NOTE | 2021-06-23 09:46 | PM.PNCARD ---
Progress Note: A&P Assessment and Plan (1) Atrial fibrillation with RVR: Code(s): I48.91 - Unspecified atrial fibrillation Status: Acute Assessment and Plan: 55-year-old male with poorly controlled diabetes mellitus, diabetic peripheral neuropathy, chronic diabetic foot ulcer, history of MRSA infections; substance abuse (methamphetamine, opiates, marijuana), noncompliance. Patient admitted to the hospital with right foot ulcer and left knee pain; is being treated for sepsis/bacteremia by the primary team. He did have an occurrence of atrial fibrillation with RVR and was given IV amiodarone which converted him to sinus rhythm. Remains in sinus rhythm on metoprolol 12.5mg b.i.d. (2) Sepsis: Qualifiers: Sepsis acute organ dysfunction status: unspecified Sepsis type: sepsis due to unspecified organism Qualified Code(s): A41.9 - Sepsis, unspecified organism Code(s): A41.9 - Sepsis, unspecified organism Status: Acute Assessment and Plan: Management as per primary team. Appropriate antibiotics, local wound care. (3) Septic arthritis of knee, left: Qualifiers: Septic arthritis organism: streptococcal Qualified Code(s): M00.262 - Other streptococcal arthritis, left knee Code(s): M00.9 - Pyogenic arthritis, unspecified Status: Acute Assessment and Plan: Management per primary team. (4) Metabolic encephalopathy: Code(s): G93.41 - Metabolic encephalopathy Status: Acute Assessment and Plan: In the setting of infection/sepsis, substance abuse. Neuroimaging. Monitor neurological status. Management as per primary team. Subjective Date/time seen: 06/23/21 09:46 Interval history: 55-year-old who we were consult because of atrial fibrillation Date of service 06/21/2021: He is feeling better. He is back in sinus rhythm. No chest pain or shortness of breath Date of service 06/22/2021: He is still doing better than previous. Still in sinus rhythm. No chest pain Date of service 06/23/2021: Every time I try to go to sleep you wake me up. Denying any chest pain, palpitations, shortness of breath. Does not voice any complaints. Review of Systems Review of Systems: All systems reviewed & are unremarkable except as noted in HPI and below Constitutional: Constitutional: Denies headache(s) and Denies weakness Eyes: Eyes: Denies blurry vision ENT: Reports Normal hearing present, Denies headache(s) and Denies neck pain Cardiovascular: Cardiovascular: Denies chest pain and Denies dyspnea Respiratory: Respiratory: Denies dyspnea Gastrointestinal: Gastrointestinal: Denies abdominal pain Genitourinary: Genitourinary: Denies dysuria Musculoskeletal: Musculoskeletal: Denies neck pain Integumentary/Breasts: Skin/Breast: Denies dry skin Neurologic: Reports Normal hearing present, Denies headache(s) and Denies weakness Psychiatric: Psychiatric: Denies anxiety Endocrine: Endocrine: Denies change in body appearance Hematologic/Lymphatic: Hematologic/Lymphatic: Denies easy bleeding Allergic/Immunologic: Allergic/Immunologic: Denies GI upset with certain foods Exam Const: General: comfortable and no acute distress HENMT: Head: normal to inspection Ears: hearing grossly normal bilaterally Eyes: General: appearance normal, both eyes and all related structures Neck: Neck: normal visual inspection Chest: Chest palpation & inspection: abnormal inspection of the chest Resp: Effort & Inspection: normal respiratory effort Auscultation: clear to auscultation bilaterally Cardio: Jugular venous distension: no JVD Rate: regular rate Rhythm: regular rhythm GI: Auscultation: normal bowel sounds Neuro: General: patient oriented x3 Cranial nerves: Yes Normal hearing present Extrem: General: abnormal to inspection Right lower extremity: foot (Diabetic ulcer, erythema) Psych: Appearance: grossly normal Mental Status: ment
[2021-06-23 12:49] LABS: Glucose Point of Care 173 mg/dl (65-105)
[2021-06-23] MEDS: HYDROmorphone HCL (*CRX) 2 MG TABLET PO ×2 (15:16→21:35)
[2021-06-23 17:05] LABS: Glucose Point of Care 127 mg/dl (65-105)
[2021-06-23 20:05] LABS: Glucose Point of Care 196 mg/dl (65-105)
[2021-06-23] MEDS: traMADol HCL (*CRX) 50 MG TABLET PO (20:09)
[2021-06-24] VITALS (9 sets, daily range): BP systolic 130–144; BP diastolic 60–74; PULSE 88–101; RESP 17–20; TEMP 36.3–36.9; O2SAT 98–100
[2021-06-24] MEDS: HYDROcodone/acetaminophen (*CRX) 5-325 MG TABLET 1 TAB PO (00:18)
[2021-06-24] MEDS: PIPERACILLIN/TAZOBACTAM SOD 4.5 GM in SODIUM CHLORIDE 0.9% IV 100 ML 200 ML IVPB ×5 (00:21→23:29)
--- NOTE | 2021-06-24 02:20 | PC.NURSE ---
This patient, Bob Webster , was transferred to [[facility]] on 06/24/21 at 0220. Personal belongings sent with patient. Report given to [Remedios]. Appropriate documentation sent with patient.
--- NOTE | 2021-06-24 02:42 | PC.NURSE ---
This patient, Bob Webster , was received from [[id number] ] on 06/24/21 at 0220. Patient/family oriented to unit policies and routines. Report received from Guadalupe HONG
[2021-06-24 05:41] LABS: Basophils Percent Auto 0.3 % (0.2-1.2); Eosinophils Percent Auto 0.2 % (0-4.4); Hematocrit 39.9 % (42.0-52.0); Hemoglobin 12.9 g/dL (14.0-18.0); Immature Granulocyte Absolute 0.24 K/mm3 (0.00-0.031); Immature Granulocyte Percent A 1.8 % (0-0.5); Lymphocytes Absolute Auto 1.06 K/mm3 (0.9-3.2); Lymphocytes Percent Auto 8.1 % (18.3-44.2); Mean Corpuscular HGB Conc 32.3 g/dl (32-36); Mean Corpuscular Hemoglobin 29.1 pg (26-34); Mean Corpuscular Volume 90.1 fl (80-100); Mean Platelet Volume 9.5 fl (7.4-10.4); Monocytes Absolute Auto 0.8 K/mm3 (0.1-0.6); Monocytes Percent Auto 6.2 % (2.6-8.5); Neutrophils Percent Auto 83.4 % (45.5-73.1); Platelet Count Result 320 k/mm3 (150-375); Red Blood Count 4.43 M/mm3 (4.6-6.20); Red Cell Distribution Width 13.6 % (11.5-14.5); White Blood Count 13.2 K/mm3 (4.5-10.0)
[2021-06-24 05:55] LABS: Anion Gap 7 mmol/L (8-16); Blood Urea Nitrogen 14 mg/dL (9-20); Calcium 8.4 mg/dL (8.4-10.2); Carbon Dioxide 26 mmol/L (22-30); Chloride 97 mmol/L (98-107); Estimated CRCL calculation 122 ml/min; Estimated Glomerular Filt Rate > 60; Glucose 169 mg/dL (65-110); Potassium 3.7 mmol/L (3.4-5.0); Sodium 130 mmol/L (137-145)
[2021-06-24] MEDS: LIDOCAINE 5% PATCH 2 PATCH TRANSDERM (08:09)
[2021-06-24] MEDS: HEPARIN SODIUM 5,000 UNITS/ML VIAL 5000 UNITS SUB-Q ×3 (08:09→20:21)
[2021-06-24] MEDS: METOPROLOL TARTRATE 12.5 MG TABLET PO (08:10)
[2021-06-24] MEDS: NICOTINE (*PBKC) 21 MG PATCH 1 PATCH TRANSDERM (08:10)
[2021-06-24 08:18] LABS: Glucose Point of Care 184 mg/dl (65-105)
[2021-06-24] MEDS: INSULIN GLARGINE (*BKC) 100 UNITS/ML 15 UNITS SUB-Q (08:18)
[2021-06-24] MEDS: HYDROmorphone HCL (*CRX) 2 MG TABLET PO (08:29)
--- NOTE | 2021-06-24 09:50 | PM.PNCARD ---
Progress Note: A&P Assessment and Plan (1) Atrial fibrillation with RVR: Code(s): I48.91 - Unspecified atrial fibrillation Status: Acute Assessment and Plan: 55-year-old male with poorly controlled diabetes mellitus, diabetic peripheral neuropathy, chronic diabetic foot ulcer, history of MRSA infections; substance abuse (methamphetamine, opiates, marijuana), noncompliance. Patient admitted to the hospital with right foot ulcer and left knee pain; is being treated for sepsis/bacteremia by the primary team. He did have an occurrence of atrial fibrillation with RVR and was given IV amiodarone which converted him to sinus rhythm. Will bump up his metoprolol to 25 mg p.o. b.i.d.. DC telemetry as he is not wearing it anyway. KCL 40 mEq p.o. x1 (2) Sepsis: Qualifiers: Sepsis acute organ dysfunction status: unspecified Sepsis type: sepsis due to unspecified organism Qualified Code(s): A41.9 - Sepsis, unspecified organism Code(s): A41.9 - Sepsis, unspecified organism Status: Acute Assessment and Plan: Management as per primary team. Appropriate antibiotics, local wound care. (3) Septic arthritis of knee, left: Qualifiers: Septic arthritis organism: streptococcal Qualified Code(s): M00.262 - Other streptococcal arthritis, left knee Code(s): M00.9 - Pyogenic arthritis, unspecified Status: Acute Assessment and Plan: Management per primary team. (4) Metabolic encephalopathy: Code(s): G93.41 - Metabolic encephalopathy Status: Acute Assessment and Plan: In the setting of infection/sepsis, substance abuse. Neuroimaging. Monitor neurological status. Management as per primary team. Subjective Date/time seen: 06/24/21 09:50 Interval history: 55-year-old who we were consult because of atrial fibrillation Date of service 06/21/2021: He is feeling better. He is back in sinus rhythm. No chest pain or shortness of breath Date of service 06/22/2021: He is still doing better than previous. Still in sinus rhythm. No chest pain Date of service 06/23/2021: Every time I try to go to sleep you wake me up. Denying any chest pain, palpitations, shortness of breath. Does not voice any complaints. Date of service 06/24/2021: His knee is ?killing him ?. He is in pain. Keeps taking off his hospital monitor. Denies any chest pain or shortness of breath. Review of Systems Review of Systems: All systems reviewed & are unremarkable except as noted in HPI and below Constitutional: Constitutional: Denies headache(s) and Denies weakness Eyes: Eyes: Denies blurry vision ENT: Reports Normal hearing present, Denies headache(s) and Denies neck pain Cardiovascular: Cardiovascular: Denies chest pain and Denies dyspnea Respiratory: Respiratory: Denies dyspnea Gastrointestinal: Gastrointestinal: Denies abdominal pain Genitourinary: Genitourinary: Denies dysuria Musculoskeletal: Musculoskeletal: Denies neck pain Integumentary/Breasts: Skin/Breast: Denies dry skin Neurologic: Reports Normal hearing present, Denies headache(s) and Denies weakness Psychiatric: Psychiatric: Denies anxiety Endocrine: Endocrine: Denies change in body appearance Hematologic/Lymphatic: Hematologic/Lymphatic: Denies easy bleeding Allergic/Immunologic: Allergic/Immunologic: Denies GI upset with certain foods Exam Narrative: PHYSICAL EXAMINATION: GENERAL: More awake alert today MENTAL STATUS: Responsive and answering questions EYES: Eyes closed EARS: External ears appear normal NOSE: Normal and patent, no discharge MOUTH: Edentulous NECK: Supple, no JVD CHEST: Clear to auscultation HEART: Regular rate rhythm ABDOMEN: Soft NEUROLOGICAL: Answering questions MUSCULOSKELETAL: Right foot ulcer with bandage in place; left knee swollen EXTREMITIES: Right foot ulcer with bandage in place; left knee swollen SKIN: Tattoos on the arms PSYCHIATRIC: Mo
--- NOTE | 2021-06-24 10:00 | PM.IMPN ---
Progress Note: A&P Assessment and Plan (1) MRSA cellulitis of right foot: Code(s): L03.115 - Cellulitis of right lower limb; B95.62 - Methicillin resistant Staphylococcus aureus infection as the cause of diseases classified elsewhere Status: Acute (2) Bacteremia due to Streptococcus pneumoniae: Code(s): R78.81 - Bacteremia; B95.3 - Streptococcus pneumoniae as the cause of diseases classified elsewhere Status: Acute (3) DJD of AC (acromioclavicular) joint: Code(s): M19.019 - Primary osteoarthritis, unspecified shoulder Status: Acute (4) Abscess of sternal region: Code(s): L02.213 - Cutaneous abscess of chest wall Status: Acute (5) Septic arthritis of right acromioclavicular joint: Code(s): M00.9 - Pyogenic arthritis, unspecified Status: Acute (6) Septic arthritis of left sternoclavicular joint: Code(s): M00.9 - Pyogenic arthritis, unspecified Status: Acute (7) Abscess of neck: Code(s): L02.11 - Cutaneous abscess of neck Status: Acute (8) Abscess of chest: Code(s): J86.9 - Pyothorax without fistula Status: Acute (9) Atrial fibrillation with RVR: Code(s): I48.91 - Unspecified atrial fibrillation Status: Acute Assessment and Plan: Patient was briefly on amiodarone drip. He converted to normal sinus rhythm. Per Cardiology recommendation was started on low-dose metoprolol 12.5 mg p.o. b.i.d. he is tachycardic and stable. We will increase metoprolol to 25 in 12.5 mg p.o. b.i.d.. (10) Septic arthritis of knee, left: Qualifiers: Septic arthritis organism: streptococcal Qualified Code(s): M00.262 - Other streptococcal arthritis, left knee Code(s): M00.9 - Pyogenic arthritis, unspecified Status: Acute (11) Metabolic encephalopathy: Code(s): G93.41 - Metabolic encephalopathy Status: Acute Assessment and Plan: Likely secondary to sepsis, sedative medication. Patient is slowly improving. Intermittent agitation and confusion requiring bedside sitter. Single dose haloperidol even in the early hours of the day. (12) Lactic acidosis: Code(s): E87.2 - Acidosis Status: Acute Assessment and Plan: Resolved. Patient hemodynamically stable. Lactate elevated at presentation at 3.1. Repeat lactate is 1.2. Patient is stable hemodynamically. (13) Sepsis: Qualifiers: Sepsis type: sepsis due to unspecified organism Sepsis acute organ dysfunction status: with acute organ dysfunction Severe sepsis acute organ dysfunction type: encephalopathy Severe sepsis shock status: without septic shock Qualified Code(s): A41.9 - Sepsis, unspecified organism; R65.20 - Severe sepsis without septic shock; G93.40 - Encephalopathy, unspecified Code(s): A41.9 - Sepsis, unspecified organism Status: Acute Assessment and Plan: Patient underwent incision and drainage of chest superficial fluid collection on June 27, 2021. He is status post Left Knee Incision and Drainage with Synovectomy, Right Foot Diabetic Foot Metatarsophalangeal Joint Ulcer Debridement on June 28, 2021. He is improving clinically. He remains stable and afebrile. WBC count is trending down and now plateauing. CRP is plateauing around 15.. He is a little bit tachycardic while on low-dose metoprolol. Will increase metoprolol. On admission patient met sepsis criteria. Currently being treated for with right ankle wound, was found to have fluid collection to the the left knee which has been drained, and similar fluid collection found on the anterior chest. Blood culture and synovial fluid cultures are growing Streptococcus pneumoniae. Wound culture is growing peptostreptococcus and MRSA. Patient was appropriately started on daptomycin and zosyn. Reimaging of the fluid collection of the anterior chest suggest phlegmon versus abscess; although imaging supports a support a collection supe
--- NOTE | 2021-06-24 11:03 | PM.CNGS ---
Assessment and Plan Assessment and plan (1) Abscess of chest: Code(s): J86.9 - Pyothorax without fistula Status: Acute Assessment and Plan: I reviewed the CT from 06/20/2021. This was done without IV contrast and it has also now been 4 days since this was originally done. I would like to get a repeat CT today of his neck and chest with contrast. This should allow better visualization of the mediastinal and neck region to allow for me to identify if there is an area that needs to be drained. If patient is experiencing more problems in the mediastinal and retrosternal region, this would not be something that I can treat with my scope of practice. He might require a thoracic surgeon to evaluate for further treatment. If it is tracking far enough superficially to allow incision and drainage at the base of the neck, then I could consider this to allow for adequate drainage of the infection. Will follow up with patient after CT to determine better course of treatment. (2) Sepsis: Qualifiers: Sepsis acute organ dysfunction status: unspecified Sepsis type: sepsis due to unspecified organism Qualified Code(s): A41.9 - Sepsis, unspecified organism Code(s): A41.9 - Sepsis, unspecified organism Status: Acute (3) Septic arthritis of knee, left: Qualifiers: Septic arthritis organism: streptococcal Qualified Code(s): M00.262 - Other streptococcal arthritis, left knee Code(s): M00.9 - Pyogenic arthritis, unspecified Status: Acute (4) Diabetic foot ulcer: Qualifiers: Diabetic foot ulcer location: other Diabetes mellitus type: type 1 Laterality: right Non-pressure ulcer stage: with bone involvement without evidence of necrosis Qualified Code(s): E10.621 - Type 1 diabetes mellitus with foot ulcer; L97.516 - 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 without evidence of necrosis Code(s): E11.621 - Type 2 diabetes mellitus with foot ulcer; L97.509 - Non-pressure chronic ulcer of other part of unspecified foot with unspecified severity Status: Acute (5) Metabolic encephalopathy: Code(s): G93.41 - Metabolic encephalopathy Status: Acute History of Present Illness Consult details Consult date: 06/24/21 Reason for consult: other ( Chest wall infection) Requesting physician: Zaida Olivera MD Narrative: this is a 55-year-old man who presents with multiple medical problems. He was found have diabetic foot ulcers but then also developed a septic arthritis in his knee. He has been followed by Orthopedics and has undergone treatment of both the foot and knee. He is on broad-spectrum IV antibiotics. He was noted to have swelling at the base of his neck and CT on 06/20/2021 showed evidence of possible infection in the sternoclavicular region. This does not appear to have improved over the past several days even with being on broad-spectrum IV antibiotics. He has no open wounds in this region. Patient has altered mental status, therefore the history is obtained from the chart. Review of Systems Review of Systems: All systems reviewed & are unremarkable except as noted in HPI and below Constitutional: Constitutional: Denies chills and Denies fever(s) Cardiovascular: Cardiovascular: Denies chest pain and Denies dyspnea Respiratory: Respiratory: Denies dyspnea PMFSH Past Medical History Medical History Abscess of chest Abscess of right foot (10/2020) Amphetamine abuse Patient is vague as to how often he uses. Diabetic foot ulcers Diabetic peripheral neuropathy History of MRSA infection Hypercholesterolemia Obesity Polysubstance abuse Including methamphetamines and marijuana. Tobacco dependence Type 2 diabetes mellitus Hemoglobin A1c greater than 11 April 2021 Surgical History Surgical History (Reviewed 06/24/21 @ 11:06 by Dawson Ramirez DO
[2021-06-24 11:38] LABS: Glucose Point of Care 193 mg/dl (65-105)
[2021-06-24] MEDS: POTASSIUM CHLORIDE 20 MEQ TABLET 40 MEQ PO (11:57)
[2021-06-24] MEDS: HYDROcodone/acetaminophen (*CRX) 7.5-325 MG TABLET 1 TAB PO ×2 (12:45→20:19)
[2021-06-24 16:48] LABS: Glucose Point of Care 202 mg/dl (65-105)
[2021-06-24] MEDS: INSULIN ASPART (*BKC) 100 UNITS/ML SUB-Q (16:59)
[2021-06-24] MEDS: HYDROmorphone HCL (*CRX) 1 MG TABLET 3 MG PO (17:38)
[2021-06-24] MEDS: METOPROLOL TARTRATE 25 MG TABLET PO (20:20)
[2021-06-24 23:04] LABS: Glucose Point of Care 226 mg/dl (65-105)
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
[2021-06-25] MEDS: LORazepam INJ (*CRX) 2 MG/ML VIAL 1 MG IM (03:05)
[2021-06-25] MEDS: HALOPERIDOL LACTATE 5 MG/ML VIAL IM (03:05)
[2021-06-25] MEDS: PIPERACILLIN/TAZOBACTAM SOD 4.5 GM in SODIUM CHLORIDE 0.9% IV 100 ML IVPB (05:18)
--- NOTE | 2021-06-25 08:34 | PM.PNCARD ---
Progress Note: A&P Assessment and Plan (1) Atrial fibrillation with RVR: Code(s): I48.91 - Unspecified atrial fibrillation Status: Acute Assessment and Plan: 55-year-old male with poorly controlled diabetes mellitus, diabetic peripheral neuropathy, chronic diabetic foot ulcer, history of MRSA infections; substance abuse (methamphetamine, opiates, marijuana), noncompliance. Patient admitted to the hospital with right foot ulcer and left knee pain; is being treated for sepsis/bacteremia by the primary team. He did have an occurrence of atrial fibrillation with RVR and was given IV amiodarone which converted him to sinus rhythm. Continue metoprolol (2) Sepsis: Qualifiers: Sepsis acute organ dysfunction status: unspecified Sepsis type: sepsis due to unspecified organism Qualified Code(s): A41.9 - Sepsis, unspecified organism Code(s): A41.9 - Sepsis, unspecified organism Status: Acute Assessment and Plan: Management as per primary team. Appropriate antibiotics, local wound care. (3) Septic arthritis of knee, left: Qualifiers: Septic arthritis organism: streptococcal Qualified Code(s): M00.262 - Other streptococcal arthritis, left knee Code(s): M00.9 - Pyogenic arthritis, unspecified Status: Acute Assessment and Plan: Management per primary team. (4) Metabolic encephalopathy: Code(s): G93.41 - Metabolic encephalopathy Status: Acute Assessment and Plan: In the setting of infection/sepsis, substance abuse. Neuroimaging. Monitor neurological status. Management as per primary team. Subjective Date/time seen: 06/25/21 08:34 Interval history: 55-year-old who we were consult because of atrial fibrillation Date of service 06/21/2021: He is feeling better. He is back in sinus rhythm. No chest pain or shortness of breath Date of service 06/22/2021: He is still doing better than previous. Still in sinus rhythm. No chest pain Date of service 06/23/2021: Every time I try to go to sleep you wake me up. Denying any chest pain, palpitations, shortness of breath. Does not voice any complaints. Date of service 06/24/2021: His knee is ?killing him ?. He is in pain. 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 Denies any chest pain or shortness of breath. Date of service 06/25/2021: Still has knee and shoulder pain. No shortness of breath. No significant swelling. Rhythm is stable Review of Systems Review of Systems: All systems reviewed & are unremarkable except as noted in HPI and below Constitutional: Constitutional: Denies headache(s) and Denies weakness Eyes: Eyes: Denies blurry vision ENT: Reports Normal hearing present, Denies headache(s) and Denies neck pain Cardiovascular: Cardiovascular: Denies chest pain and Denies dyspnea Respiratory: Respiratory: Denies dyspnea Gastrointestinal: Gastrointestinal: Denies abdominal pain Genitourinary: Genitourinary: Denies dysuria Musculoskeletal: Musculoskeletal: Denies neck pain Integumentary/Breasts: Skin/Breast: Denies dry skin Neurologic: Reports Normal hearing present, Denies headache(s) and Denies weakness Psychiatric: Psychiatric: Denies anxiety Endocrine: Endocrine: Denies change in body appearance Hematologic/Lymphatic: Hematologic/Lymphatic: Denies easy bleeding Allergic/Immunologic: Allergic/Immunologic: Denies GI upset with certain foods Exam Narrative: PHYSICAL EXAMINATION: GENERAL: More awake alert today MENTAL STATUS: Responsive and answering questions EYES: Eyes closed EARS: External ears appear normal NOSE: Normal and patent, no discharge MOUTH: Edentulous NECK: Supple, no JVD CHEST: Clear to auscultation HEART: Regular rate rhythm ABDOMEN: Soft NEUROLOGICAL: Answering questions MUSCULOSKELETAL: Right foot ulcer with bandage in place; left knee swollen EXTREMITIES: Right foot ulcer with bandage in place; left knee swollen SKIN:
--- NOTE | 2021-06-25 09:27 | PM.IMPN ---
Progress Note: A&P Assessment and Plan (1) Sepsis: Qualifiers: Sepsis type: sepsis due to unspecified organism Sepsis acute organ dysfunction status: with acute organ dysfunction Severe sepsis acute organ dysfunction type: encephalopathy Severe sepsis shock status: without septic shock Qualified Code(s): A41.9 - Sepsis, unspecified organism; R65.20 - Severe sepsis without septic shock; G93.40 - Encephalopathy, unspecified Code(s): A41.9 - Sepsis, unspecified organism Status: Acute Assessment and Plan: Patient is improving clinically. He remains stable and afebrile for the last 96 hours. He has reverted to normal sinus rhythm and is maintained on low-dose metoprolol. On admission patient met sepsis criteria. Currently being treated for with right ankle wound, was found to have fluid collection to the the left knee which has been drained, and similar fluid collection found on the anterior chest. Blood culture and synovial fluid cultures are growing Streptococcus pneumoniae. Wound culture is growing peptostreptococcus and MRSA. Patient was appropriately started on daptomycin and zosyn. Reimaging of the fluid collection of the anterior chest suggest phlegmon versus abscess; although imaging supports a support a collection superficial to the mediastinum there is an ongoing concern of about the possibility of mediastinitis, and arrangement were made to transfer the patient to higher level of care. Unfortunately due to the current pandemic, patient is to remain in our facility while awaiting for a bed. [facility] is [facility] Continue IV antibiotic. Altered mentation likely secondary to benzodiazepine is currently resolving; patient appears back to his baseline. Avoid sedative hypnotic medication. (2) Cellulitis of right foot: Code(s): L03.115 - Cellulitis of right lower limb Status: Acute Assessment and Plan: Current continue wound care and IV antibiotics. Currently blood culture growing Streptococcus pneumonia. Repeat blood culture from June 20, 2021 and 06/23/2021 are unrevealing. (3) Atrial fibrillation with RVR: Code(s): I48.91 - Unspecified atrial fibrillation Status: Acute Assessment and Plan: Patient was briefly on amiodarone drip. He converted to normal sinus rhythm. Per Cardiology recommendation was started on low-dose metoprolol 12.5 mg p.o. b.i.d.Continue metoprolol. (4) Hyponatremia: Code(s): E87.1 - Hypo-osmolality and hyponatremia Status: Acute Assessment and Plan: mild hyponatremia worsening with a serum sodium of 133 down to 130 yesterday. Check urine lytes. Start sodium tablets. Check orthostatic vital signs. (5) Septic arthritis: Qualifiers: Septic arthritis location: foot Septic arthritis organism: due to unspecified organism Laterality: left Qualified Code(s): M00.9 - Pyogenic arthritis, unspecified Code(s): M00.9 - Pyogenic arthritis, unspecified Status: Acute Assessment and Plan: Left knee septic arthritis, status post I&D. Orthopedic surgery is following. Appreciate recommendation. Continue IV antibiotics. (6) Lactic acidosis: Code(s): E87.2 - Acidosis Status: Acute Assessment and Plan: Resolved. Patient hemodynamically stable. Lactate elevated at presentation at 3.1. Repeat lactate is 1.2. Patient is stable hemodynamically. (7) Type 2 diabetes mellitus with hyperglycemia: Qualifiers: Diabetes mellitus medical terminologist insulin use: without medical terminologist use Qualified Code(s): E11.65 - Type 2 diabetes mellitus with hyperglycemia Code(s): E11.65 - Type 2 diabetes mellitus with hyperglycemia Status: Acute Assessment and Plan: Currently patient is being managed with insulin sliding scale. Fasting blood glucose 169. Accu-Chek improving in the 184-226 range. Oral intake is improving. Glargine was increased to 20 units daily today. (
[2021-06-25] MEDS: LIDOCAINE 5% PATCH 2 PATCH TRANSDERM (09:45)
[2021-06-25] MEDS: NICOTINE (*PBKC) 21 MG PATCH 1 PATCH TRANSDERM (09:47)
[2021-06-25] MEDS: INSULIN GLARGINE (*BKC) 100 UNITS/ML 20 UNITS SUB-Q (09:50)
[2021-06-25 10:00] VITALS: BP 138/76; PULSE 99; RESP 24; TEMP 36.2; O2SAT 97
[2021-06-25 10:06] LABS: Glucose Point of Care 198 mg/dl (65-105)
--- NOTE | 2021-06-25 12:10 | PM.PNGS ---
Progress Note: A&P Assessment and Plan (1) Abscess of sternal region: Code(s): L02.213 - Cutaneous abscess of chest wall Status: Acute Assessment and Plan: CT shows ongoing infection in sternal region near left medial clavicular head. Will plan to proceed with I&D of sternal abscess tomorrow in OR. Will plan to take cultures to help identify adequate antibiotic choice. Patient has multiple other infectious sources being treated currently and is on broad spectrum antibiotics. (2) Sepsis: Qualifiers: Sepsis acute organ dysfunction status: unspecified Sepsis type: sepsis due to unspecified organism Qualified Code(s): A41.9 - Sepsis, unspecified organism Code(s): A41.9 - Sepsis, unspecified organism Status: Acute (3) Metabolic encephalopathy: Code(s): G93.41 - Metabolic encephalopathy Status: Acute (4) Type 2 diabetes mellitus: Code(s): E11.9 - Type 2 diabetes mellitus without complications Status: Acute (5) Polysubstance abuse: Code(s): F19.10 - Other psychoactive substance abuse, uncomplicated Status: Acute (6) Diabetic foot ulcer: Qualifiers: Diabetic foot ulcer location: other Diabetes mellitus type: type 1 Laterality: right Non-pressure ulcer stage: with bone involvement without evidence of necrosis Qualified Code(s): E10.621 - Type 1 diabetes mellitus with foot ulcer; L97.516 - 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 without evidence of necrosis Code(s): E11.621 - Type 2 diabetes mellitus with foot ulcer; L97.509 - Non-pressure chronic ulcer of other part of unspecified foot with unspecified severity Status: Acute (7) Septic arthritis of knee, left: Qualifiers: Septic arthritis organism: streptococcal Qualified Code(s): M00.262 - Other streptococcal arthritis, left knee Code(s): M00.9 - Pyogenic arthritis, unspecified Status: Acute Subjective Subjective Date/Time Seen: 06/25/21 12:10 Interval history: Unable to obtain any info from patient. Still confused. Exam Skin: Other: Ongoing swelling and erythema near sternal notch and medial left clavicle Objective Data Vital Signs Vital Signs: Vital Signs - 24 hr 06/24/21 15:06 06/24/21 18:13 06/24/21 20:20 Temperature 36.8 C 36.9 C Pulse Rate 95 101 H 88 Respiratory Rate 20 20 Blood Pressure 134/63 136/68 Pulse Oximetry 99 100 06/24/21 21:25 Temperature 36.6 C Pulse Rate 88 Respiratory Rate 18 Blood Pressure 132/73 Pulse Oximetry 100 Intake/Output Intake/Output: Intake & Output 06/22/21 06/23/21 06/24/21 06/25/21 23:59 23:59 23:59 23:59 Intake Total 2290 2490 1370 100 Output Total 1725 2950 3375 1050 Balance 315 -092 -6411 -436 Meds/Results Medications: Active Medications Generic Name Dose Route Start Last Admin Trade Name Freq PRN Reason Stop Dose Admin Hydrocodone Bitart/Acetaminophen 1 tab 06/24/21 11:44 06/24/21 20:19 Hydrocodone/Acetaminophen (*Crx) 7.5-325 Mg Tablet PO 1 tab Q6H PRN Administration Pain Rated 4-6 Dextrose 12.5 gm 06/19/21 03:19 Dextrose 50% 25 Gm/50 Ml Syringe IV PUSH PRN PRN Hypoglycemia Protocol Glucagon 1 mg 06/19/21 03:19 Glucagon For Inj 1 Mg Vial IM PRN PRN Hypoglycemia Protocol Glucose 15 gm 06/19/21 03:19 Glucose Oral Gel 15 Gm Of Glucse In 37.5 Gm Tube PO PRN PRN Hypoglycemia Protocol Heparin Sodium (Porcine) 5,000 units 06/22/21 14:00 06/25/21 06:03 Heparin Sodium 5,000 Units/Ml Vial SUB-Q Not Given Q8H LINO Hydromorphone HCl 3 mg 06/24/21 14:58 06/24/21 17:38 Hydromorphone Hcl (*Crx) 1 Mg Tablet PO 3 mg Q4H PRN Administration Pain Rated 7-10 Daptomycin 365 mg/ Sodium 50 mls @ 100 mls/hr 06/19/21 01:00 06/24/21 23:59 Chloride IVPB Infused Q24H LINO Infusion Dextrose 1,000 mls @ 100 mls/hr 06/19/21 03:19
[2021-06-25 12:24] VITALS: PULSE 98
[2021-06-25] MEDS: METOPROLOL TARTRATE 25 MG TABLET PO ×2 (12:24→22:39)
[2021-06-25 12:25] LABS: Glucose Point of Care 190 mg/dl (65-105)
[2021-06-25] MEDS: HYDROmorphone HCL (*CRX) 1 MG TABLET 3 MG PO ×2 (12:27→17:02)
[2021-06-25] MEDS: PIPERACILLIN/TAZOBACTAM SOD 4.5 GM in SODIUM CHLORIDE 0.9% IV 100 ML 200 ML IVPB ×3 (12:28→23:59)
--- NOTE | 2021-06-25 13:10 | WPDANESEPP ---
Anes - Eval Pre Procedure Procedure: I&D sternal abcess Date/Time: 06/25/21 13:10 Surgeon: Ashley Preop Diagnosis: sternal abcess, sepsis/bacteremia Pre Op Diagnosis: sepsis, left knee joint infection Patient Data Age: 55 Gender: M Height: 1.88 m Weight: 99.5 kg Last Vital Signs Temp 97.8 F 06/24/21 21:25 Pulse 98 06/25/21 12:24 Resp 18 06/24/21 21:25 BP 132/73 06/24/21 21:25 Pulse Ox 100 06/24/21 21:25 Allergies Allergy/AdvReac Type Severity Reaction Status Date / Time vancomycin AdvReac Other Verified 06/19/21 03:09 Home Medications Medication Instructions Recorded Confirmed Type metformin 500 mg PO BID #60 tablet 04/20/21 06/19/21 Rx Laboratory Tests 06/24/21 06/24/21 06/25/21 16:46 21:31 09:59 POC Capillary Glucose 202 mg/dl H mg/dl 226 mg/dl H mg/dl 198 mg/dl H mg/dl (65-105) (65-105) (65-105) 06/25/21 12:13 POC Capillary Glucose 190 mg/dl H mg/dl (65-105) ECG: Interpretive Statements ATRIAL FIBRILLATION WITH RAPID VENTRICULAR RESPONSE INCOMPLETE RIGHT BUNDLE BRANCH BLOCK BASELINE WANDER- I, II, V2-V6 ABNORMAL ECG Electronically Signed On 06-20-2021 6:29:01 DISPLAY DECORATOR by Aris Slater D.O. per job compositor note: patient converted to SR, now managed with beta jc Other studies: Complete two-dimensional, color flow and Doppler transthoracic echocardiogram is performed. Summary 1. Complete two-dimensional, color flow and Doppler transthoracic echocardiogram is performed. 2. Normal LV size, moderate LVH, variable LV contractility due to atrial fibrillation, ejection fraction 60-70%; indeterminate diastolic function. Mild mitral annular calcification, no significant MR. Mild aortic valve sclerosis, no hemodynamically significant stenosis. Unable to assess RVSP due to inadequate TR jet. Atrial fibrillation with RVR. Patient hx anesthesia problems: none Family hx anesthesia problems: none Results Review: All pre-operative results and documents have been reviewed as part of the pre-operative evaluation. [facility] Past Medical History Medical History Abscess of chest Abscess of right foot (10/2020) Amphetamine abuse Patient is vague as to how often he uses. Diabetic foot ulcers Diabetic peripheral neuropathy History of MRSA infection Hypercholesterolemia Obesity Polysubstance abuse Including methamphetamines and marijuana. Tobacco dependence Type 2 diabetes mellitus Hemoglobin A1c greater than 11 April 2021 Surgical History Surgical History History of carpal tunnel release (~09/07/20) Left-sided per Dr. Escobedo. History of colonoscopy (~10/2008) Negative aside from internal hemorrhoidal tissue per Dr. Damico. History of incision and drainage (10/04/20) Complex incision and drainage of right diabetic foot ulcer per Dr. Zhao. Status post debridement (~12/21/19) Excisional debridement of skin, subcutaneous tissue, and muscle of a 4 cm2 ulcer of the plantar surface of the right foot with removal foreign body under fluoroscopy per Dr. Raymundo. Family History Family History Other Carcinoma of colon Diabetes mellitus Social History Social History (Updated 06/25/21 @ 13:24 by Aria Holguin CRNA) Social History: Surrogate decision maker: Maxwell Webster, spouse. Code status: Full code. Smoking packs per day: 0.5 Smoking cigarettes per day: 10.0 Years smoked: 20 Smoking pack-years: 10.00 Smoking status: Current every day smoker Tobacco type: cigarettes Alcohol intake: current Alcohol use details: Drinks several alcoholic beverages a month. Substance use: current Substance use type: marijuana, opiates and methamphetamine Other substance usage details: Previous history of methamphetamine use. Living arr
[2021-06-25] MEDS: HEPARIN SODIUM 5,000 UNITS/ML VIAL 5000 UNITS SUB-Q ×2 (14:39→22:41)
[2021-06-25 16:45] LABS: Glucose Point of Care 215 mg/dl (65-105)
[2021-06-25 16:47] LABS: Basophils Percent Auto 0.3 % (0.2-1.2); Eosinophils Percent Auto 0.1 % (0-4.4); Hematocrit 40.6 % (42.0-52.0); Hemoglobin 13.1 g/dL (14.0-18.0); Immature Granulocyte Absolute 0.16 K/mm3 (0.00-0.031); Immature Granulocyte Percent A 1.7 % (0-0.5); Lymphocytes Absolute Auto 1.08 K/mm3 (0.9-3.2); Lymphocytes Percent Auto 11.6 % (18.3-44.2); Mean Corpuscular HGB Conc 32.3 g/dl (32-36); Mean Corpuscular Hemoglobin 28.9 pg (26-34); Mean Corpuscular Volume 89.6 fl (80-100); Mean Platelet Volume 9.1 fl (7.4-10.4); Monocytes Absolute Auto 0.7 K/mm3 (0.1-0.6); Monocytes Percent Auto 7.2 % (2.6-8.5); Neutrophils Absolute Auto 7.4 K/mm3 (1.3-6.7); Neutrophils Percent Auto 79.1 % (45.5-73.1); Platelet Count Result 405 k/mm3 (150-375); Red Blood Count 4.53 M/mm3 (4.6-6.20); Red Cell Distribution Width 13.7 % (11.5-14.5); White Blood Count 9.3 K/mm3 (4.5-10.0)
[2021-06-25] MEDS: INSULIN ASPART (*BKC) 100 UNITS/ML SUB-Q (16:58)
[2021-06-25 17:36] LABS: Erythrocyte Sedimentation Rate 39 mm/hr (0-20)
[2021-06-25 18:16] LABS: Anion Gap 6 mmol/L (8-16); Blood Urea Nitrogen 15 mg/dL (9-20); CRP 20.4 mg/dL (<1.0); Calcium 8.7 mg/dL (8.4-10.2); Carbon Dioxide 30 mmol/L (22-30); Chloride 97 mmol/L (98-107); Estimated CRCL calculation 108 ml/min; Estimated Glomerular Filt Rate > 60; Glucose 222 mg/dL (65-110); Potassium 4.2 mmol/L (3.4-5.0); Sodium 133 mmol/L (137-145)
[2021-06-25 20:00] VITALS: PULSE 93; RESP 21; O2SAT 100
[2021-06-25 22:00] VITALS: BP 135/75; PULSE 93; RESP 21; TEMP 36.8; O2SAT 100
[2021-06-25 22:39] VITALS: PULSE 99
[2021-06-25 22:47] LABS: Glucose Point of Care 237 mg/dl (65-105)
[2021-06-26] VITALS (15 sets, daily range): BP systolic 105–137; BP diastolic 58–79; PULSE 79–102; RESP 12–21; TEMP 36.1–36.9; O2SAT 96–100
[2021-06-26] MEDS: HYDROcodone/acetaminophen (*CRX) 7.5-325 MG TABLET 1 TAB PO ×2 (00:08→14:20)
[2021-06-26 05:14] LABS: Basophils Percent Auto 0.5 % (0.2-1.2); Eosinophils Percent Auto 0.5 % (0-4.4); Hematocrit 39.8 % (42.0-52.0); Hemoglobin 13.2 g/dL (14.0-18.0); Immature Granulocyte Absolute 0.11 K/mm3 (0.00-0.031); Immature Granulocyte Percent A 1.4 % (0-0.5); Lymphocytes Absolute Auto 1.03 K/mm3 (0.9-3.2); Mean Corpuscular HGB Conc 33.2 g/dl (32-36); Mean Corpuscular Hemoglobin 29.1 pg (26-34); Mean Corpuscular Volume 87.7 fl (80-100); Mean Platelet Volume 9.4 fl (7.4-10.4); Monocytes Absolute Auto 0.7 K/mm3 (0.1-0.6); Monocytes Percent Auto 8.8 % (2.6-8.5); Neutrophils Percent Auto 75.8 % (45.5-73.1); Platelet Count Result 469 k/mm3 (150-375); Red Blood Count 4.54 M/mm3 (4.6-6.20); Red Cell Distribution Width 13.3 % (11.5-14.5); White Blood Count 7.9 K/mm3 (4.5-10.0)
[2021-06-26 05:45] LABS: Anion Gap 6 mmol/L (8-16); Blood Urea Nitrogen 16 mg/dL (9-20); CRP 17.3 mg/dL (<1.0); Calcium 8.9 mg/dL (8.4-10.2); Carbon Dioxide 31 mmol/L (22-30); Chloride 96 mmol/L (98-107); Estimated CRCL calculation 122 ml/min; Estimated Glomerular Filt Rate > 60; Glucose 221 mg/dL (65-110); Potassium 3.9 mmol/L (3.4-5.0); Sodium 133 mmol/L (137-145)
[2021-06-26] MEDS: PIPERACILLIN/TAZOBACTAM SOD 4.5 GM in SODIUM CHLORIDE 0.9% IV 100 ML 200 ML IVPB ×3 (06:32→17:15)
[2021-06-26] MEDS: HEPARIN SODIUM 5,000 UNITS/ML VIAL 5000 UNITS SUB-Q ×3 (06:44→21:46)
[2021-06-26 08:17] LABS: Glucose Point of Care 212 mg/dl (65-105)
[2021-06-26] MEDS: HYDROmorphone HCL (*CRX) 1 MG TABLET 3 MG PO (08:25)
[2021-06-26] MEDS: METOPROLOL TARTRATE 25 MG TABLET PO ×2 (08:26→21:30)
[2021-06-26] MEDS: INSULIN GLARGINE (*BKC) 100 UNITS/ML 20 UNITS SUB-Q (08:28)
[2021-06-26] MEDS: SILVERGEL (ELTA) 45 ML 1 APPLIC TOPICAL (08:30)
[2021-06-26 09:20] LABS: Erythrocyte Sedimentation Rate 51 mm/hr (0-20)
--- NOTE | 2021-06-26 10:19 | PM.IMPN ---
Progress Note: A&P Assessment and Plan (1) Sepsis: Qualifiers: Sepsis type: sepsis due to unspecified organism Sepsis acute organ dysfunction status: with acute organ dysfunction Severe sepsis acute organ dysfunction type: encephalopathy Severe sepsis shock status: without septic shock Qualified Code(s): A41.9 - Sepsis, unspecified organism; R65.20 - Severe sepsis without septic shock; G93.40 - Encephalopathy, unspecified Code(s): A41.9 - Sepsis, unspecified organism Status: Acute Assessment and Plan: Patient is improving clinically. He remains stable and afebrile for the last 120 hours. He has reverted to normal sinus rhythm and is maintained on low-dose metoprolol. On admission patient met sepsis criteria. Currently being treated for with right ankle wound, was found to have fluid collection to the the left knee which has been drained, and similar fluid collection found on the anterior chest. Blood culture and synovial fluid cultures are growing Streptococcus pneumoniae. Wound culture is growing peptostreptococcus and MRSA. Patient was appropriately started on daptomycin and zosyn. Reimaging of the fluid collection of the anterior chest suggest phlegmon versus abscess; although imaging supports a support a collection superficial to the mediastinum there is an ongoing concern of about the possibility of mediastinitis, and arrangement were made to transfer the patient to higher level of care. Unfortunately due to the current pandemic, patient is to remain in our facility while awaiting for a bed. He is currently at waitlisted at [facility]. Continue IV antibiotic. Altered mentation likely secondary to benzodiazepine is currently resolving; patient appears back to his baseline. Avoid sedative hypnotic medication. (2) Cellulitis of right foot: Code(s): L03.115 - Cellulitis of right lower limb Status: Acute Assessment and Plan: Current continue wound care and IV antibiotics. Currently blood culture growing Streptococcus pneumonia. Repeat blood culture from June 20, 2021 and 06/23/2021 are unrevealing. (3) Atrial fibrillation with RVR: Code(s): I48.91 - Unspecified atrial fibrillation Status: Acute Assessment and Plan: Patient was briefly on amiodarone drip. He converted to normal sinus rhythm. Per Cardiology recommendation was started on low-dose metoprolol 12.5 mg p.o. b.i.d.Heart rate is controlled with metoprolol. (4) Hyponatremia: Code(s): E87.1 - Hypo-osmolality and hyponatremia Status: Acute Assessment and Plan: mild hyponatremia with a serum sodium of 133 today. (5) Septic arthritis: Qualifiers: Septic arthritis location: foot Septic arthritis organism: due to unspecified organism Laterality: left Qualified Code(s): M00.9 - Pyogenic arthritis, unspecified Code(s): M00.9 - Pyogenic arthritis, unspecified Status: Acute Assessment and Plan: Left knee septic arthritis, status post I&D. Orthopedic surgery is following. Appreciate recommendation. Continue IV antibiotics. (6) Lactic acidosis: Code(s): E87.2 - Acidosis Status: Acute Assessment and Plan: Resolved. Patient hemodynamically stable. Lactate elevated at presentation at 3.1. Repeat lactate is 1.2. Patient is stable hemodynamically. (7) Type 2 diabetes mellitus with hyperglycemia: Qualifiers: Diabetes mellitus skilled nursing insulin use: without skilled nursing use Qualified Code(s): E11.65 - Type 2 diabetes mellitus with hyperglycemia Code(s): E11.65 - Type 2 diabetes mellitus with hyperglycemia Status: Acute Assessment and Plan: Currently patient is being managed with insulin sliding scale. Fasting blood glucose 221. Accu-Chek improving in the 212-237 range. Oral intake is improving. Glargine was increased to 20 units daily today. (8) Metabolic encephalopathy: Code(s): G93.41 - Metabolic encephalo
--- NOTE | 2021-06-26 10:48 | PM.PNCARD ---
Progress Note: A&P Assessment and Plan (1) Atrial fibrillation with RVR: Code(s): I48.91 - Unspecified atrial fibrillation Status: Acute Assessment and Plan: 55-year-old male with poorly controlled diabetes mellitus, diabetic peripheral neuropathy, chronic diabetic foot ulcer, history of MRSA infections; substance abuse (methamphetamine, opiates, marijuana), noncompliance. Patient admitted to the hospital with right foot ulcer and left knee pain; is being treated for sepsis/bacteremia by the primary team. He did have an occurrence of atrial fibrillation with RVR and was given IV amiodarone which converted him to sinus rhythm. -Continue metoprolol 25mg BID. -He is not on telemetry but in SR on exam. ASA 81mg daily when able advised from surgical perspective and bleeding risk. - Conservative management at this time. Telemetry if he will be compliant to determine evidence for recurrent atrial fibrillation. - please notify us with significant recurrence with rapid ventricular response with associated symptoms. Will see patient as needed as he has been maintaining sinus rhythm on metoprolol. (2) Sepsis: Qualifiers: Sepsis acute organ dysfunction status: without acute organ dysfunction Sepsis type: sepsis due to unspecified organism Qualified Code(s): A41.9 - Sepsis, unspecified organism Code(s): A41.9 - Sepsis, unspecified organism Status: Acute Assessment and Plan: Management as per primary team. Appropriate antibiotics, local wound care. plan for drainage of gerber clavicular fluid collection later today. (3) Septic arthritis of knee, left: Qualifiers: Septic arthritis organism: streptococcal Qualified Code(s): M00.262 - Other streptococcal arthritis, left knee Code(s): M00.9 - Pyogenic arthritis, unspecified Status: Acute Assessment and Plan: Management per primary team. (4) Metabolic encephalopathy: Code(s): G93.41 - Metabolic encephalopathy Status: Acute Assessment and Plan: In the setting of infection/sepsis, substance abuse. Neuroimaging. Monitor neurological status. Management as per primary team. Subjective Date/time seen: Date of service: 06/26/21 10:48 Interval history: Follow-up for paroxysmal atrial fibrillation complains of pain in his left neck. Scheduled drainage of clavicular mass later today. Patient denies short of breath, palpitations or other chest pain. Reportedly patient has been rude to staff including nurses. He is not wearing his telemetry. Afebrile. Review of Systems Review of Systems: All systems reviewed & are unremarkable except as noted in HPI and below Constitutional: Constitutional: Denies headache(s) and Denies weakness Eyes: Eyes: Denies blurry vision ENT: Reports Normal hearing present, Denies headache(s) and Denies neck pain Cardiovascular: Cardiovascular: Denies chest pain and Denies dyspnea Respiratory: Respiratory: Denies dyspnea Gastrointestinal: Gastrointestinal: Denies abdominal pain Genitourinary: Genitourinary: Denies dysuria Musculoskeletal: Musculoskeletal: Denies neck pain Integumentary/Breasts: Skin/Breast: Denies dry skin Neurologic: Reports Normal hearing present, Denies headache(s) and Denies weakness Psychiatric: Psychiatric: Denies anxiety Endocrine: Endocrine: Denies change in body appearance Hematologic/Lymphatic: Hematologic/Lymphatic: Denies easy bleeding Allergic/Immunologic: Allergic/Immunologic: Denies GI upset with certain foods Exam Narrative: PHYSICAL EXAMINATION: GENERAL: Sleeping but responsive and easliy arousable, appears mildy uncomfortable but in NAD. breathing comfortably. MENTAL STATUS: Responsive and answering questions EYES: Eyes closed EARS: External ears appear normal NOSE: Normal and patent, no discharge MOUTH: Edentulous NECK: Supple, no JVD Large swollen red, tender swelling under neck upper chest extending
--- NOTE | 2021-06-26 11:36 | WPDANESEPPF ---
Anes - Initial Pre Proc Eval Procedure: Operation Date: 06/26/21 12:00 Proposed Procedures p Incision And Drainage Sternal Abscess - Dawson Ramirez DO Date/Time: 06/26/21 11:36 Surgeon: Zaida Olivera MD Pre Op Diagnosis: sepsis, left knee joint infection Patient Data Age: 55 Gender: M Height: 1.88 m Weight: 99.5 kg Last Vital Signs Temp 36.5 C 06/26/21 11:32 Pulse 80 06/26/21 11:32 Resp 16 06/26/21 11:32 BP 126/70 06/26/21 11:32 Pulse Ox 99 06/26/21 11:32 Allergies Allergy/AdvReac Type Severity Reaction Status Date / Time vancomycin AdvReac Other Verified 06/26/21 11:24 Home Medications Medication Instructions Recorded Confirmed Type metformin 500 mg PO BID #60 tablet 04/20/21 06/19/21 Rx Laboratory Tests 06/25/21 06/25/21 06/25/21 12:13 16:38 16:39 WBC 9.3 K/mm3 K/mm3 (4.5-10.0) RBC 4.53 M/mm3 L M/mm3 (4.6-6.20) Hgb 13.1 g/dL L g/dL (14.0-18.0) Hct 40.6 % L % (42.0-52.0) MCV 89.6 fl fl (80-100) MCH 28.9 pg pg (26-34) MCHC 32.3 g/dl g/dl (32-36) RDW 13.7 % % (11.5-14.5) Plt Count 405 k/mm3 H k/mm3 (150-375) MPV 9.1 fl fl (7.4-10.4) Immature Gran % (Auto) 1.7 % H % (0-0.5) Neut % (Auto) 79.1 % H % (45.5-73.1) Lymph % (Auto) 11.6 % L % (18.3-44.2) Hettinger % (Auto) 7.2 % % (2.6-8.5) Eos % (Auto) 0.1 % % (0-4.4) Baso % (Auto) 0.3 % % (0.2-1.2) Lymph # (Auto) 1.08 K/mm3 K/mm3 (0.9-3.2) Hettinger # (Auto) 0.7 K/mm3 H K/mm3 (0.1-0.6) Eos # (Auto) 0.0 K/mm3 K/mm3 (0-0.3) Baso # (Auto) 0.0 K/mm3 K/mm3 (0.0-0.1) Abs Immat Gran (auto) 0.16 K/mm3 H K/mm3 (0.00-0.031) Absolute Neuts (auto) 7.4 K/mm3 H K/mm3 (1.3-6.7) Absolute Nucleated RBC 0.0 K/mm3 K/mm3 (0.0-0.012) Nucleated RBC % 0.0 % % (0.0-0.2) ESR 39 mm/hr H mm/hr (0-20) Sodium Potassium Chloride Carbon Dioxide Anion Gap BUN Creatinine Estim Creat Clear Calc Estimated GFR Glucose POC Capillary Glucose 190 mg/dl H mg/dl 215 mg/dl H mg/dl (65-105) (65-105) Calcium C-Reactive Protein 06/25/21 06/25/21 06/26/21 16:39 22:34 04:35 WBC 7.9 K/mm3 K/mm3 (4.5-10.0) RBC 4.54 M/mm3 L M/mm3 (4.6-6.20) Hgb 13.2 g/dL L g/dL (14.0-18.0) Hct 39.8 % L % (42.0-52.0) MCV 87.7 fl fl (80-100) MCH 29.1 pg pg (26-34) MCHC 33.2 g/dl g/dl (32-36) RDW 13.3 % % (11.5-14.5) Plt Count 469 k/mm3 H k/mm3 (150-375) MPV 9.4 fl fl (7.4-10.4) Immature Gran % (Auto) 1.4 % H % (0-0.5) Neut % (Auto) 75.8 % H % (45.5-73.1) Lymph % (Auto) 13.0 % L % (18.3-44.2) Hettinger % (Auto) 8.8 % H % (2.6-8.5) Eos % (Auto) 0.5 % % (0-4.4) Baso % (Auto) 0.5 % % (0.2-1.2) Lymph # (Auto) 1.03 K/mm3 K/mm3 (0.9-3.2) Hettinger # (Auto) 0.7 K/mm3 H K/mm3 (0.1-0.6) Eos # (Auto) 0.0 K/mm3 K/mm3 (0-0.3) Baso # (Auto) 0.0 K/mm3 K/mm3 (0.0-0.1) Abs Immat Gran (auto) 0.11 K/mm3 H K/mm3 (0.00-0.031) Absolute Neuts (auto) 6.0 K/mm3 K/mm3 (1.3-6.7) Absolute Nucleated RBC 0.0 K/mm3 K/mm3 (0.0-0.012) Nucleated RBC % 0.0 % % (0.0-0.2) ESR 51 mm/hr H mm/hr (0-20) Sodium 133 mmol/L L mmol/L (137-145) Potassium 4.2 mmol/L mmol/L (3.4-5.0) Chloride 97 mmol/L L mmol/L (98-107) Carbon Dioxide 30 mmol/L mmol/L (22-30) Anion Gap 6 mmol/L L mmol/L (8-16) BUN 15 mg/dL mg/dL (9-20) Creatinine 0.80 mg
--- NOTE | 2021-06-26 11:43 | WPDHPUPDATE1 ---
History and Physical Update Update Date/Time: 06/26/21 11:43 History and Physical has been reviewed, including an updated exam of the patient. There are NO changes in the patient's condition. Risks, benefits, and alternatives have been discussed and questions answered. Patient agrees to proceed with procedure.
[2021-06-26] MEDS: LACTATED RINGERS 1,000 ML 30 ML IV CONT (12:03)
--- NOTE | 2021-06-26 12:40 | P.OP_ITS ---
Procedure Note - Detailed Date of Procedure 06/26/21 Pre-op Diagnosis Sternal abscess Post-op Diagnosis same Procedure Performed Incision and drainage of complicated sternal abscess Surgeon Dawson Ramirez, DO Anesthesia general and local (1% lidocaine with epinephrine) Indications This is a 55-year-old man with multiple sources of infection. He was found to have a diabetic foot ulcer and a septic knee joint. He has a history of polysubstance abuse. He was noted to have some redness and swelling at the s ternal notch and CT showed evidence of a possible abscess near the clavicular head at the sternal notch. Decision was made to proceed with incision and drainage of sternal abscess. Findings Incision and drainage of sternal abscess was performed. There did appear to be some cloudy serous fluid within the subcutaneous space. Cultures were taken for aerobic and anaerobic culture and sensitivity. There did not appear to be a large pocket of purulence fluid but the subcutaneous tissue was diffusely indurated with mostly serous drainage. After incising area draining it, loculations were broken up and the wound was then packed with quarter-inch iodoform gauze. Description of Procedure Procedure as well as risks, benefits, alternatives were discussed. Written consent was obtained and placed in chart prior to procedure. Patient was brought back to surgical suite. He was placed supine on operating table. Time- out was done to confirm patient and procedure. He was intubated by the anesthesia department. His sternal area was prepped and draped in sterile fashion using Betadine prep. 1% lidocaine with epinephrine was infiltrated directly over the area of swelling. There was a small punctate opening in the left sternal region. A 3 cm incision was made over this region and this was a ngled slightly inferiorly towards the sternal notch. Once the wound was opened, cultures were taken for aerobic and anaerobic culture and sensitivity. A hemostat was then used to break up any loculations. The wound did appear to be tracking slightly inferior and to the left of the sternum. Dissection was carried down right over the clavicular head at the sternal notch and I was not able to drain much more purulence fluid than what was initially opened. The wound was then irrigated with sterile saline. It was then packed with quarter- inch iodoform gauze. Fluff gauze and Medipore tape was then applied. The patient was then awakened from anesthesia, extubated, and transferred to recovery. Estimated Blood Loss 5 Urine Output 800 Packing Yes (Quarter-inch iodoform gauze) Complications No immediate complications Condition stable Disposition floor
[2021-06-26] MEDS: LIDO 1%/EPINEPHRINE 1:100,000 50 ML VIAL INFILTRATE (12:42)
[2021-06-26 12:56] LABS: Glucose Point of Care 180 mg/dl (65-105)
[2021-06-26] MEDS: fentaNYL CITRATE INJ (*CRX) 100 MCG/2 ML VIAL 25 MCG IV PUSH ×2 (13:42→13:45)
[2021-06-26] MEDS: NICOTINE (*PBKC) 21 MG PATCH 1 PATCH TRANSDERM (14:11)
[2021-06-26] MEDS: LIDOCAINE 5% PATCH 2 PATCH TRANSDERM (14:12)
[2021-06-26] MEDS: INSULIN ASPART (*BKC) 100 UNITS/ML SUB-Q (16:34)
[2021-06-26 16:35] LABS: Glucose Point of Care 240 mg/dl (65-105)
[2021-06-26 20:44] LABS: Glucose Point of Care 295 mg/dl (65-105)
[2021-06-27] VITALS: BP 131/76; PULSE 78; RESP 16; TEMP 36.5; O2SAT 100
[2021-06-27] MEDS: LORazepam INJ (*CRX) 2 MG/ML VIAL 1 MG IV PUSH (00:35)
[2021-06-27] MEDS: PIPERACILLIN/TAZOBACTAM SOD 4.5 GM in SODIUM CHLORIDE 0.9% IV 100 ML 200 ML IVPB ×5 (00:35→23:14)
[2021-06-27] MEDS: HYDROmorphone HCL (*CRX) 1 MG TABLET 3 MG PO (01:35)
[2021-06-27] MEDS: NICOTINE (*PBKC) 2 MG GUM PO (01:38)
--- NOTE | 2021-06-27 02:20 | PC.NURSE ---
Pt has removed dressing and wound packing 3 times, 4th dressing initiated w/o packing as pt constantly attempts to remove with his fingers.
[2021-06-27] MEDS: HEPARIN SODIUM 5,000 UNITS/ML VIAL 5000 UNITS SUB-Q (06:21)
[2021-06-27] MEDS: HALOPERIDOL LACTATE 5 MG/ML VIAL IM (06:30)
--- NOTE | 2021-06-27 06:32 | PC.NURSE ---
Pt placed in soft restraints after attempting to hit and kick staff. Dr Pizarro notified and order for haldol IM received. Pt still belligerent at this time. AOxself only at this time
--- NOTE | 2021-06-27 06:50 | PC.NURSE ---
Pt is no longer exhibiting violent behavior, soft restraints removed at this time.
[2021-06-27] MEDS: INSULIN GLARGINE (*BKC) 100 UNITS/ML 22 UNITS SUB-Q (09:02)
[2021-06-27] MEDS: INSULIN ASPART (*BKC) 100 UNITS/ML SUB-Q ×2 (09:02→17:26)
[2021-06-27 09:05] VITALS: PULSE 78
[2021-06-27] MEDS: METOPROLOL TARTRATE 25 MG TABLET PO ×2 (09:05→20:11)
[2021-06-27] MEDS: LIDOCAINE 5% PATCH 2 PATCH TRANSDERM (09:06)
[2021-06-27] MEDS: NICOTINE (*PBKC) 21 MG PATCH 1 PATCH TRANSDERM (09:06)
[2021-06-27 09:16] LABS: Glucose Point of Care 213 mg/dl (65-105)
--- NOTE | 2021-06-27 09:37 | WPDANESPN ---
Anes - Prog Note Post-Op Date/Time: 06/27/21 09:37 Cardiovascular status: normal Respiratory status: normal Airway patency: baseline Mental status: baseline Post-Op hydration status: normal Vital Signs: Last Vital Signs Temp 36.5 C 06/27/21 00:00 Pulse 78 06/27/21 09:05 Resp 16 06/27/21 00:00 BP 131/76 06/27/21 00:00 Pulse Ox 100 06/27/21 00:00 Pain Score (VAS): 0 I/O: Intake & Output 06/26/21 06/27/21 06/27/21 23:59 07:59 15:59 Intake Total 740 550 240 Output Total 1275 990 Balance -535 -440 240 Laboratory Tests 06/26/21 04:35 06/26/21 04:35 06/26/21 06/26/21 06/26/21 12:53 16:26 19:52 POC Capillary Glucose 180 H 240 H 295 H 06/27/21 09:00 POC Capillary Glucose 213 H Microbiology 06/20/21 16:36 Blood Blood Culture - Final 06/20/21 16:36 Blood Blood Culture - Final 06/19/21 08:49 Foot Right Anaerobic Culture - Final Peptostreptococcus species 06/19/21 08:49 Foot Right Aerobic Culture - Final Methicillin Resis Staph Aureus 06/19/21 00:06 Knee Left Anaerobic Culture - Final 06/19/21 00:06 Knee Left Aerobic Culture - Final Streptococcus pneumoniae Post-procedural complaints: none Patient Feedback: Patient satisfied with anesthetic care.
--- NOTE | 2021-06-27 10:26 | PM.PNORT ---
Progress Note: A&P Assessment and Plan (1) Diabetic foot ulcer: Qualifiers: Diabetic foot ulcer location: other Diabetes mellitus type: type 1 Laterality: right Non-pressure ulcer stage: with bone involvement without evidence of necrosis Qualified Code(s): E10.621 - Type 1 diabetes mellitus with foot ulcer; L97.516 - 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 without evidence of necrosis Code(s): E11.621 - Type 2 diabetes mellitus with foot ulcer; L97.509 - Non-pressure chronic ulcer of other part of unspecified foot with unspecified severity Status: Acute Assessment and Plan: 1 week s/p bedside debridement of the right lateral DFU. Lateral wound with improvement in dimensions/appearance. Worsening eschar of the 1st MTP joint with swelling over the dorsum of the hallux as well. Continued erythema of hallux but improvement in dorsal forefoot swelling/redness. Previous cultures with MRSA. Patient non-compliant with dressing change today. Dry gauze dressing in place. Plan for OR debridement of the right hallux DFU and 1st MTP joint I&D with Dr. Alvarez. (2) Septic arthritis of knee, left: Qualifiers: Septic arthritis organism: streptococcal Qualified Code(s): M00.262 - Other streptococcal arthritis, left knee Code(s): M00.9 - Pyogenic arthritis, unspecified Status: Acute Assessment and Plan: Continued left knee swelling/pain with palpation. Patient would benefit from I&D of the left knee joint in the OR. Unable to perform today due to diet. Will plan for surgical intervention tomorrow. Obtain consent in the interim. Continue with IV antibiotics at this time. (3) Abscess of chest: Code(s): J86.9 - Pyothorax without fistula Status: Acute Assessment and Plan: s/p aspiration by general surgery on 06/26. Cultures pending. Additional Plan Reviewed case with Dr. Alvarez. Reviewed previous MRI findings, current exam, labs, synovial fluid results. Plan for surgical treatment tomorrow with Dr. Alvarez. Discussed case with hospitalist , Dr. Olivera who approves medical stability to move forward with surgical intervention. Subjective Subjective Date/Time Seen: 06/27/21 0900 Interval history: Patient awake. Confused. Noncompliant with full exam Review of Systems Review of Systems: ROS unobtainable: Yes unobtainable due to mental status Exam Const: General: comfortable Neck: Neck: anterior neck swelling (erythema ) Resp: Effort & Inspection: normal respiratory effort Cardio: Rate: tachycardic Rhythm: abnormal rhythm GI: GI Palp: Yes Soft to palpation Skin: Wounds: wounds noted Neuro: Cognition (Neuro): abnormal cognition Extrem: Right lower extremity: foot ( see below) Left lower extremity: knee Details: tenderness Location: of the medial joint line and of the lateral joint line, swelling (Moderate left knee joint effusion. Tenderness To touch), abnormal ROM (Non compliant with exam however pain with passive range of motion and palpation. ) and other ( No erythema); no ecchymosis and no unusual warmth, lower leg Details: normal to inspection; no erythema and no tenderness, ankle Details: normal to inspection and foot ( see below) Other: ulcer over the 5th metatarsal head on the plantar aspect measures 2.5 x 1.5 with probing 1.0 cm on the plantar aspect of the 4th ray and 2.0 cm on the dorsal aspect down the 5th metatarsal. Erythema and swelling improved. No active drainage. 1st MTP joint with worsening Eschar on the medial aspect of the hallux extending to the plantar aspect of the 1st MTP joint with loose callused skin. Fluctuant area over the dorsal aspect of the 1st MTP joint consistent with abscess. Dorsum forefoot erythema improvement noted. Objective Data Vital Signs Vital Signs: Vital Signs - 24 hr 06/26/21 11:32 06/26/21 12:45 06/26/21 13:00 Temperature 36.5 C 36.9 C Pulse Rate 80 79 81 Res
[2021-06-27 11:37] LABS: Glucose Point of Care 185 mg/dl (65-105)
--- NOTE | 2021-06-27 13:36 | PM.PNGS ---
Progress Note: A&P Assessment and Plan (1) Abscess of sternal region: Code(s): L02.213 - Cutaneous abscess of chest wall Status: Acute Assessment and Plan: Continue packing dressing changes daily Continue IV antibiotics Await culture results (2) Sepsis: Qualifiers: Sepsis acute organ dysfunction status: without acute organ dysfunction Sepsis type: sepsis due to unspecified organism Qualified Code(s): A41.9 - Sepsis, unspecified organism Code(s): A41.9 - Sepsis, unspecified organism Status: Acute (3) Metabolic encephalopathy: Code(s): G93.41 - Metabolic encephalopathy Status: Acute (4) Type 2 diabetes mellitus: Code(s): E11.9 - Type 2 diabetes mellitus without complications Status: Acute (5) Polysubstance abuse: Code(s): F19.10 - Other psychoactive substance abuse, uncomplicated Status: Acute (6) Diabetic foot ulcer: Qualifiers: Diabetic foot ulcer location: other Diabetes mellitus type: type 1 Laterality: right Non-pressure ulcer stage: with bone involvement without evidence of necrosis Qualified Code(s): E10.621 - Type 1 diabetes mellitus with foot ulcer; L97.516 - 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 without evidence of necrosis Code(s): E11.621 - Type 2 diabetes mellitus with foot ulcer; L97.509 - Non-pressure chronic ulcer of other part of unspecified foot with unspecified severity Status: Acute Assessment and Plan: Ortho following and planning to take patient to the OR tomorrow for debridement of the DFU and I&D of left knee joint (7) Septic arthritis of knee, left: Qualifiers: Septic arthritis organism: streptococcal Qualified Code(s): M00.262 - Other streptococcal arthritis, left knee Code(s): M00.9 - Pyogenic arthritis, unspecified Status: Acute Additional Plan I have discussed the plan of care with Dr. Ramirez. Subjective Subjective Date/Time Seen: 06/27/21 12:06 Post Op day: 1 (I&D sternal abscess) Patient reports: afebrile Interval history: Patient seen and examined. He has no specific complaints. He is confused and disoriented to time and place. Per nursing, he has been pulling at his chest dressing and removed packing earlier this morning. Review of Systems Review of Systems: ROS unobtainable: Yes unobtainable due to mental status Exam Const: General: no acute distress Orientation/consciousness: oriented to person, No oriented to place, No oriented to time and confusion Chest: Chest/axillae images: 1. left upper chest incision near clavicle with small amount of velasquez purulent drainage on dressing, draining well with localized surrounding erythema and induration Neuro: General: moves all extremities and no focal motor deficits Extrem: General: no edema and other (right foot dressing dry and intact) Psych: Insight: Limited insight present (Psych) Judgement: Limited judgement present (Psych) Objective Data Vital Signs Vital Signs: Vital Signs - 24 hr 06/26/21 13:38 06/26/21 14:15 06/26/21 14:30 Temperature 97.1 F L 97.0 F L Pulse Rate 84 86 83 Respiratory Rate 12 16 14 Blood Pressure 118/69 121/69 123/67 Pulse Oximetry 99 97 99 06/26/21 15:00 06/26/21 16:00 06/26/21 18:22 Temperature 97.2 F L 97.3 F L 97.6 F Pulse Rate 85 81 98 Respiratory Rate 16 16 16 Blood Pressure 124/71 110/68 119/60 Pulse Oximetry 99 98 96 06/26/21 19:43 06/26/21 21:30 06/27/21 00:00 Temperature 97.6 F 97.7 F Pulse Rate 87 87 78 Respiratory Rate 14 16 Blood Pressure 109/58 L 131/76 Pulse Oximetry 100 100 06/27/21 09:05 Temperature Pulse Rate 78 Respiratory Rate Blood Pressure Pulse Oximetry Intake/Output Intake/Output: Intake & Output 06/24/21 06/25/21 06/26/21 06/27/21 23:59 23:59 23:59 23:59 Intake Total 1370 1010 2090 790 Output Total 0206 2375 8069 99 [facility] -2005 -1240 -785 -200
--- NOTE | 2021-06-27 13:43 | WPDANESEPPF ---
Anes - Initial Pre Proc Eval Procedure: Operation Date: 06/26/21 12:00 Proposed Procedures p Incision And Drainage Sternal Abscess - Dawson Ramirez DO Operation Date: 06/28/21 16:30 Proposed Procedures p Left Knee Incision and Drainage with Synovectomy, Right Foot Diabetic Foot Metatarsophalangeal Joint Ulcer Debridement - Homer Alvarez MD Date/Time: 06/27/21 13:43 Surgeon: Zaida Olivera MD Pre Op Diagnosis: sepsis, left knee joint infection Patient Data Age: 55 Gender: M Height: 1.88 m Weight: 99.5 kg Last Vital Signs Temp 36.5 C 06/27/21 00:00 Pulse 78 06/27/21 09:05 Resp 16 06/27/21 00:00 BP 131/76 06/27/21 00:00 Pulse Ox 100 06/27/21 00:00 Allergies Allergy/AdvReac Type Severity Reaction Status Date / Time vancomycin AdvReac Other Verified 06/26/21 11:24 Home Medications Medication Instructions Recorded Confirmed Type metformin 500 mg PO BID #60 tablet 04/20/21 06/19/21 Rx Laboratory Tests 06/26/21 06/26/21 06/27/21 16:26 19:52 09:00 POC Capillary Glucose 240 mg/dl H mg/dl 295 mg/dl H mg/dl 213 mg/dl H mg/dl (65-105) (65-105) (65-105) 06/27/21 11:33 POC Capillary Glucose 185 mg/dl H mg/dl (65-105) Patient hx anesthesia problems: none Family hx anesthesia problems: none Results Review: All pre-operative results and documents have been reviewed as part of the pre-operative evaluation. [facility] Past Medical History Medical History (Updated 06/29/21 @ 13:03 by HEATHER Blanco) Abscess of chest Abscess of right foot (10/2020) Amphetamine abuse Patient is vague as to how often he uses. Diabetic foot ulcers Diabetic peripheral neuropathy DJD of AC (acromioclavicular) joint History of MRSA infection Hypercholesterolemia Obesity Polysubstance abuse Including methamphetamines and marijuana. Tobacco dependence Type 2 diabetes mellitus Hemoglobin A1c greater than 11 April 2021 Surgical History Surgical History History of carpal tunnel release (~09/07/20) Left-sided per Dr. Escobedo. History of colonoscopy (~10/2008) Negative aside from internal hemorrhoidal tissue per Dr. Damico. History of incision and drainage (10/04/20) Complex incision and drainage of right diabetic foot ulcer per Dr. Zhao. Status post debridement (~12/21/19) Excisional debridement of skin, subcutaneous tissue, and muscle of a 4 cm2 ulcer of the plantar surface of the right foot with removal foreign body under fluoroscopy per Dr. Raymundo. Family History Family History Other Carcinoma of colon Diabetes mellitus Social History Social History Social History: Surrogate decision maker: Maxwell Webster, spouse. Code status: Full code. Smoking packs per day: 0.5 Smoking cigarettes per day: 10.0 Years smoked: 20 Smoking pack-years: 10.00 Smoking status: Current every day smoker Tobacco type: cigarettes Alcohol intake: current Alcohol use details: Drinks several alcoholic beverages a month. Substance use: current Substance use type: marijuana, opiates and methamphetamine Other substance usage details: Previous history of methamphetamine use. Living arrangements: with family Additional living arrangements comments: Lives in [place] with his spouse. Occupation/Education: unemployed Additional occupation/education comments: Unemployed. Spiritual care concerns: No Anes - Eval Final PreProcedure Day of Procedure 06/27/21 13:43 Patient weight: overweight Heart: regular rate and rhythm Lungs: clear to auscultation and normal air movement Airway: Mallampati scale class II Neurological: alert and oriented Last oral intake: >/= 8 hours ASA classification: IV Emergent: no Anesthetic plan: proceed Anesthesia type and monitoring: general
--- NOTE | 2021-06-27 15:26 | PM.IMPN ---
Progress Note: A&P Assessment and Plan (1) Sepsis: Qualifiers: Sepsis type: sepsis due to unspecified organism Sepsis acute organ dysfunction status: with acute organ dysfunction Severe sepsis acute organ dysfunction type: encephalopathy Severe sepsis shock status: without septic shock Qualified Code(s): A41.9 - Sepsis, unspecified organism; R65.20 - Severe sepsis without septic shock; G93.40 - Encephalopathy, unspecified Code(s): A41.9 - Sepsis, unspecified organism Status: Acute Assessment and Plan: Patient underwent incision and drainage of chest superficial fluid collection today. He is improving clinically. He has been stable and afebrile. WBC count is trending down. We will send inflammatory markers. He has reverted to normal sinus rhythm and is maintained on low-dose metoprolol. On admission patient met sepsis criteria. Currently being treated for with right ankle wound, was found to have fluid collection to the the left knee which has been drained, and similar fluid collection found on the anterior chest. Blood culture and synovial fluid cultures are growing Streptococcus pneumoniae. Wound culture is growing peptostreptococcus and MRSA. Patient was appropriately started on daptomycin and zosyn. Reimaging of the fluid collection of the anterior chest suggest phlegmon versus abscess; although imaging supports a support a collection superficial to the mediastinum there is an ongoing concern of about the possibility of mediastinitis, and arrangement were made to transfer the patient to higher level of care. Unfortunately due to the current pandemic, patient is to remain in our facility while awaiting for a bed. He is currently at waitlisted at [facility]. Continue IV antibiotic. Altered mentation likely secondary to benzodiazepine is currently resolving; patient appears back to his baseline. Avoid sedative hypnotic medication. (2) Cellulitis of right foot: Code(s): L03.115 - Cellulitis of right lower limb Status: Acute Assessment and Plan: Current continue wound care and IV antibiotics. Currently blood culture growing Streptococcus pneumonia. Repeat blood culture from June 20, 2021 and 06/23/2021 are unrevealing. (3) Atrial fibrillation with RVR: Code(s): I48.91 - Unspecified atrial fibrillation Status: Acute Assessment and Plan: Patient was briefly on amiodarone drip. He converted to normal sinus rhythm. Per Cardiology recommendation was started on low-dose metoprolol 12.5 mg p.o. b.i.d.Heart rate is controlled with metoprolol. (4) Hyponatremia: Code(s): E87.1 - Hypo-osmolality and hyponatremia Status: Acute Assessment and Plan: mild hyponatremia with a serum sodium of 133 yesterday. (5) Septic arthritis: Qualifiers: Septic arthritis location: foot Septic arthritis organism: due to unspecified organism Laterality: left Qualified Code(s): M00.9 - Pyogenic arthritis, unspecified Code(s): M00.9 - Pyogenic arthritis, unspecified Status: Acute Assessment and Plan: Left knee septic arthritis, status post I&D. Orthopedic surgery is following. Appreciate recommendation. Continue IV antibiotics. (6) Lactic acidosis: Code(s): E87.2 - Acidosis Status: Acute Assessment and Plan: Resolved. Patient hemodynamically stable. Lactate elevated at presentation at 3.1. Repeat lactate is 1.2. Patient is stable hemodynamically. (7) Type 2 diabetes mellitus with hyperglycemia: Qualifiers: Diabetes mellitus penitentiary insulin use: without penitentiary use Qualified Code(s): E11.65 - Type 2 diabetes mellitus with hyperglycemia Code(s): E11.65 - Type 2 diabetes mellitus with hyperglycemia Status: Acute Assessment and Plan: Currently patient is being managed with insulin sliding scale. Fasting blood glucose 221. Accu-Chek improving in the 180-295 range. Oral intake is improving
[2021-06-27 16:55] LABS: Glucose Point of Care 241 mg/dl (65-105)
[2021-06-27] MEDS: INSULIN GLARGINE (*BKC) 100 UNITS/ML 10 UNITS SUB-Q (17:26)
[2021-06-27] MEDS: HYDROcodone/acetaminophen (*CRX) 7.5-325 MG TABLET 1 TAB PO (17:29)
[2021-06-27 17:36] VITALS: BP 125/73; PULSE 83; RESP 19; TEMP 36.6; O2SAT 100
[2021-06-27 18:01] LABS: Basophils Percent Auto 0.2 % (0.2-1.2); Eosinophils Percent Auto 0.2 % (0-4.4); Hematocrit 41.3 % (42.0-52.0); Hemoglobin 13.2 g/dL (14.0-18.0); Immature Granulocyte Absolute 0.05 K/mm3 (0.00-0.031); Immature Granulocyte Percent A 0.6 % (0-0.5); Lymphocytes Percent Auto 12.2 % (18.3-44.2); Mean Corpuscular Hemoglobin 29.3 pg (26-34); Mean Corpuscular Volume 91.6 fl (80-100); Mean Platelet Volume 8.7 fl (7.4-10.4); Monocytes Absolute Auto 0.6 K/mm3 (0.1-0.6); Monocytes Percent Auto 7.1 % (2.6-8.5); Neutrophils Absolute Auto 6.5 K/mm3 (1.3-6.7); Neutrophils Percent Auto 79.7 % (45.5-73.1); Platelet Count Result 485 k/mm3 (150-375); Red Blood Count 4.51 M/mm3 (4.6-6.20); Red Cell Distribution Width 13.7 % (11.5-14.5); White Blood Count 8.2 K/mm3 (4.5-10.0)
[2021-06-27 18:27] LABS: Anion Gap 7 mmol/L (8-16); Blood Urea Nitrogen 15 mg/dL (9-20); CRP 14.9 mg/dL (<1.0); Calcium 8.9 mg/dL (8.4-10.2); Carbon Dioxide 33 mmol/L (22-30); Chloride 94 mmol/L (98-107); Estimated CRCL calculation 122 ml/min; Estimated Glomerular Filt Rate > 60; Glucose 238 mg/dL (65-110); Potassium 3.8 mmol/L (3.4-5.0); Sodium 134 mmol/L (137-145)
[2021-06-27 18:29] LABS: Erythrocyte Sedimentation Rate 42 mm/hr (0-20)
[2021-06-27 20:00] VITALS: PULSE 76; RESP 19; O2SAT 100
[2021-06-27 20:11] VITALS: PULSE 76
[2021-06-27 20:21] LABS: Glucose Point of Care 209 mg/dl (65-105)
[2021-06-28] VITALS (12 sets, daily range): BP systolic 113–145; BP diastolic 59–95; PULSE 72–125; RESP 9–22; TEMP 36.2–37.3; O2SAT 90–100
[2021-06-28] MEDS: PIPERACILLIN/TAZOBACTAM SOD 4.5 GM in SODIUM CHLORIDE 0.9% IV 100 ML 200 ML IVPB ×2 (05:16→12:10)
[2021-06-28 05:52] LABS: Basophils Absolute Auto 0.1 K/mm3 (0.0-0.1); Basophils Percent Auto 0.5 % (0.2-1.2); Eosinophils Percent Auto 0.4 % (0-4.4); Hematocrit 39.9 % (42.0-52.0); Hemoglobin 12.9 g/dL (14.0-18.0); Immature Granulocyte Absolute 0.09 K/mm3 (0.00-0.031); Lymphocytes Percent Auto 13.9 % (18.3-44.2); Mean Corpuscular HGB Conc 32.3 g/dl (32-36); Mean Corpuscular Hemoglobin 28.6 pg (26-34); Mean Corpuscular Volume 88.5 fl (80-100); Monocytes Absolute Auto 0.6 K/mm3 (0.1-0.6); Monocytes Percent Auto 6.7 % (2.6-8.5); Neutrophils Absolute Auto 7.2 K/mm3 (1.3-6.7); Neutrophils Percent Auto 77.5 % (45.5-73.1); Platelet Count Result 497 k/mm3 (150-375); Red Blood Count 4.51 M/mm3 (4.6-6.20); Red Cell Distribution Width 13.4 % (11.5-14.5); White Blood Count 9.3 K/mm3 (4.5-10.0)
[2021-06-28 06:22] LABS: Anion Gap 8 mmol/L (8-16); Blood Urea Nitrogen 16 mg/dL (9-20); Carbon Dioxide 27 mmol/L (22-30); Chloride 97 mmol/L (98-107); Estimated CRCL calculation 141 ml/min; Estimated Glomerular Filt Rate > 60; Glucose 173 mg/dL (65-110); Potassium 4.1 mmol/L (3.4-5.0); Sodium 132 mmol/L (137-145)
[2021-06-28 06:52] LABS: Erythrocyte Sedimentation Rate 20 mm/hr (0-20)
--- NOTE | 2021-06-28 07:16 | WPDHPUPDATE1 ---
History and Physical Update Update Date/Time: 06/28/21 07:16 History and Physical has been reviewed, including an updated exam of the patient. There are NO changes in the patient's condition. Risks, benefits, and alternatives have been discussed and questions answered. Patient agrees to proceed with procedure.
[2021-06-28 07:44] LABS: Glucose Point of Care 157 mg/dl (65-105)
[2021-06-28] MEDS: NICOTINE (*PBKC) 21 MG PATCH 1 PATCH TRANSDERM (09:10)
--- NOTE | 2021-06-28 11:02 | PM.IMPN ---
Progress Note: A&P Assessment and Plan (1) Sepsis: Qualifiers: Sepsis acute organ dysfunction status: with acute organ dysfunction Sepsis type: sepsis due to unspecified organism Severe sepsis acute organ dysfunction type: encephalopathy Severe sepsis shock status: without septic shock Qualified Code(s): A41.9 - Sepsis, unspecified organism; R65.20 - Severe sepsis without septic shock; G93.40 - Encephalopathy, unspecified Code(s): A41.9 - Sepsis, unspecified organism Status: Acute Assessment and Plan: Patient underwent incision and drainage of chest superficial fluid collection on June 27, 2021. Plan for Left Knee Incision and Drainage with Synovectomy, Right Foot Diabetic Foot Metatarsophalangeal Joint Ulcer Debridement today. He is improving clinically. He has been stable and afebrile. WBC count is trending down. CRP is trending down to 15 today.. He remains in normal sinus rhythm on low-dose metoprolol. On admission patient met sepsis criteria. Currently being treated for with right ankle wound, was found to have fluid collection to the the left knee which has been drained, and similar fluid collection found on the anterior chest. Blood culture and synovial fluid cultures are growing Streptococcus pneumoniae. Wound culture is growing peptostreptococcus and MRSA. Patient was appropriately started on daptomycin and zosyn. Reimaging of the fluid collection of the anterior chest suggest phlegmon versus abscess; although imaging supports a support a collection superficial to the mediastinum there is an ongoing concern of about the possibility of mediastinitis, and arrangement were made to transfer the patient to higher level of care. Unfortunately due to the current pandemic, patient is to remain in our facility while awaiting for a bed. He is currently at waitlisted at [facility]. Continue IV antibiotic. Altered mentation likely secondary to benzodiazepine is currently resolving; patient appears back to his baseline. Avoid sedative hypnotic medication. (2) Cellulitis of right foot: Code(s): L03.115 - Cellulitis of right lower limb Status: Acute Assessment and Plan: Current continue wound care and IV antibiotics. Currently blood culture growing Streptococcus pneumonia. Repeat blood culture from June 20, 2021 and 06/23/2021 are unrevealing. (3) Atrial fibrillation with RVR: Code(s): I48.91 - Unspecified atrial fibrillation Status: Acute Assessment and Plan: Patient was briefly on amiodarone drip. He converted to normal sinus rhythm. Per Cardiology recommendation was started on low-dose metoprolol 12.5 mg p.o. b.i.d.Heart rate is controlled with metoprolol. (4) Hyponatremia: Code(s): E87.1 - Hypo-osmolality and hyponatremia Status: Acute Assessment and Plan: mild hyponatremia with a serum sodium of 133 yesterday. (5) Septic arthritis: Qualifiers: Laterality: left Septic arthritis location: foot Septic arthritis organism: due to unspecified organism Qualified Code(s): M00.9 - Pyogenic arthritis, unspecified Code(s): M00.9 - Pyogenic arthritis, unspecified Status: Acute Assessment and Plan: Left knee septic arthritis, status post I&D. Orthopedic surgery is following. Appreciate recommendation. Continue IV antibiotics. (6) Lactic acidosis: Code(s): E87.2 - Acidosis Status: Acute Assessment and Plan: Resolved. Patient hemodynamically stable. Lactate elevated at presentation at 3.1. Repeat lactate is 1.2. Patient is stable hemodynamically. (7) Type 2 diabetes mellitus with hyperglycemia: Qualifiers: Diabetes mellitus intermediate frame tender insulin use: without intermediate frame tender use Qualified Code(s): E11.65 - Type 2 diabetes mellitus with hyperglycemia Code(s): E11.65 - Type 2 diabetes mellitus with hyperglycemia Status: Acute Assessment and Plan: Currently patient is being man
[2021-06-28 12:21] LABS: Glucose Point of Care 173 mg/dl (65-105)
[2021-06-28] MEDS: HYDROcodone/acetaminophen (*CRX) 7.5-325 MG TABLET 1 TAB PO ×2 (13:14→21:59)
--- NOTE | 2021-06-28 15:06 | PC.NURSE ---
To OR per bed, IV intact. Report given to GELY Conrad.
[2021-06-28] MEDS: LACTATED RINGERS 1,000 ML 30 ML IV CONT ×2 (15:15→18:26)
--- NOTE | 2021-06-28 15:45 | WPDANESEPPF ---
Anes - Initial Pre Proc Eval Procedure: Operation Date: 06/26/21 12:00 Proposed Procedures p Incision And Drainage Sternal Abscess - Dawson Ramirez DO Operation Date: 06/28/21 16:30 Proposed Procedures p Left Knee Incision and Drainage with Synovectomy, Right Foot Diabetic Foot Metatarsophalangeal Joint Ulcer Debridement - Homer Alvarez MD Date/Time: 06/28/21 15:45 Surgeon: Zaida Olivera MD Pre Op Diagnosis: sepsis, left knee joint infection Patient Data Age: 55 Gender: M Height: 1.88 m Weight: 99.5 kg Last Vital Signs Temp 37.3 C 06/28/21 15:31 Pulse 106 H 06/28/21 15:31 Resp 20 06/28/21 15:31 BP 117/68 06/28/21 15:31 Pulse Ox 100 06/28/21 15:31 Allergies Allergy/AdvReac Type Severity Reaction Status Date / Time vancomycin AdvReac Other Verified 06/26/21 11:24 Home Medications Medication Instructions Recorded Confirmed Type metformin 500 mg PO BID #60 tablet 04/20/21 06/19/21 Rx Laboratory Tests 06/27/21 06/27/21 06/27/21 16:52 17:49 17:49 WBC 8.2 K/mm3 K/mm3 (4.5-10.0) RBC 4.51 M/mm3 L M/mm3 (4.6-6.20) Hgb 13.2 g/dL L g/dL (14.0-18.0) Hct 41.3 % L % (42.0-52.0) MCV 91.6 fl fl (80-100) MCH 29.3 pg pg (26-34) MCHC 32.0 g/dl g/dl (32-36) RDW 13.7 % % (11.5-14.5) Plt Count 485 k/mm3 H k/mm3 (150-375) MPV 8.7 fl fl (7.4-10.4) Immature Gran % (Auto) 0.6 % H % (0-0.5) Neut % (Auto) 79.7 % H % (45.5-73.1) Lymph % (Auto) 12.2 % L % (18.3-44.2) [place] % (Auto) 7.1 % % (2.6-8.5) Eos % (Auto) 0.2 % % (0-4.4) Baso % (Auto) 0.2 % % (0.2-1.2) Lymph # (Auto) 1.00 K/mm3 K/mm3 (0.9-3.2) [place] # (Auto) 0.6 K/mm3 K/mm3 (0.1-0.6) Eos # (Auto) 0.0 K/mm3 K/mm3 (0-0.3) Baso # (Auto) 0.0 K/mm3 K/mm3 (0.0-0.1) Abs Immat Gran (auto) 0.05 K/mm3 H K/mm3 (0.00-0.031) Absolute Neuts (auto) 6.5 K/mm3 K/mm3 (1.3-6.7) Absolute Nucleated RBC 0.0 K/mm3 K/mm3 (0.0-0.012) Nucleated RBC % 0.0 % % (0.0-0.2) ESR 42 mm/hr H mm/hr (0-20) Sodium 134 mmol/L L mmol/L (137-145) Potassium 3.8 mmol/L mmol/L (3.4-5.0) Chloride 94 mmol/L L mmol/L (98-107) Carbon Dioxide 33 mmol/L H mmol/L (22-30) Anion Gap 7 mmol/L L mmol/L (8-16) BUN 15 mg/dL mg/dL (9-20) Creatinine 0.70 mg/dL mg/dL (0.7-1.3) Estim Creat Clear Calc 122 ml/min ml/min Estimated GFR > 60 (59 - ) Glucose 238 mg/dL H mg/dL (65-110) POC Capillary Glucose 241 mg/dl H mg/dl (65-105) Calcium 8.9 mg/dL mg/dL (8.4-10.2) C-Reactive Protein 14.9 mg/dL H mg/dL (<1.0) 06/27/21 06/28/21 06/28/21 20:15 05:22 05:22 WBC 9.3 K/mm3 K/mm3 (4.5-10.0) RBC 4.51 M/mm3 L M/mm3 (4.6-6.20) Hgb 12.9 g/dL L g/dL (14.0-18.0) Hct 39.9 % L % (42.0-52.0) MCV 88.5 fl fl (80-100) MCH 28.6 pg pg (26-34) MCHC 32.3 g/dl g/dl (32-36) RDW 13.4 % % (11.5-14.5) Plt Count 497 k/mm3 H k/mm3 (150-375) MPV 9.0 fl fl (7.4-10.4) Immature Gran % (Auto) 1.0 % H % (0-0.5) Neut % (Auto) 77.5 % H % (45.5-73.1) Lymph % (Auto) 13.9 % L % (18.3-44.2) [place] % (Auto) 6.7 % % (2.6-8.5) Eos % (Auto) 0.4 % % (0-4.4) Baso % (Auto) 0.5 % % (0.2-1.2) Lymph # (Auto) 1.30 K/mm3 K/mm3 (0.9-3.2) [place] # (Auto) 0.6 K/mm3 K/mm3 (0.1-0.6) Eos # (Auto) 0.0 K/mm3 K/mm3 (0-0.3) Baso # (Auto) 0.1 K/mm3 K/mm3 (0.0-0.1) Abs Immat Gran (auto) 0.09 K/mm3 H K/mm3 (0.00-0.031) Absolute Neuts (auto) 7.2 K/mm3 H K/mm3 (1.3-6.7
--- NOTE | 2021-06-28 16:43 | PM.PNGS ---
Progress Note: A&P Assessment and Plan (1) Abscess of sternal region: Code(s): L02.213 - Cutaneous abscess of chest wall Status: Acute Assessment and Plan: Since the patient continues to pull out packing and his incision is open enough to continue drainage, we will switch to daily gauze dressing changes. Continue the local wound care. We will sign off at this point. Please call if there are any other surgical needs in the future. (2) Sepsis: Qualifiers: Sepsis acute organ dysfunction status: without acute organ dysfunction Sepsis type: sepsis due to unspecified organism Qualified Code(s): A41.9 - Sepsis, unspecified organism Code(s): A41.9 - Sepsis, unspecified organism Status: Acute (3) Metabolic encephalopathy: Code(s): G93.41 - Metabolic encephalopathy Status: Acute (4) Type 2 diabetes mellitus: Code(s): E11.9 - Type 2 diabetes mellitus without complications Status: Acute (5) Polysubstance abuse: Code(s): F19.10 - Other psychoactive substance abuse, uncomplicated Status: Acute (6) Diabetic foot ulcer: Qualifiers: Diabetic foot ulcer location: other Diabetes mellitus type: type 1 Laterality: right Non-pressure ulcer stage: with bone involvement without evidence of necrosis Qualified Code(s): E10.621 - Type 1 diabetes mellitus with foot ulcer; L97.516 - 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 without evidence of necrosis Code(s): E11.621 - Type 2 diabetes mellitus with foot ulcer; L97.509 - Non-pressure chronic ulcer of other part of unspecified foot with unspecified severity Status: Acute Assessment and Plan: Ortho following and planning to take patient to the OR today for debridement of the DFU and I&D of left knee joint (7) Septic arthritis of knee, left: Qualifiers: Septic arthritis organism: streptococcal Qualified Code(s): M00.262 - Other streptococcal arthritis, left knee Code(s): M00.9 - Pyogenic arthritis, unspecified Status: Acute Additional Plan I have discussed the plan of care with Dr. Ramirez. Subjective Subjective Date/Time Seen: 06/28/21 10:43 Interval history: Patient seen and examined. He remains confused today and will only answer some simple questions. He removed his dressing again today per the nurse and the patient does not recall doing this. He denies any pain. He is scheduled to go to the OR later today with Dr. Leong. Review of Systems Review of Systems: ROS unobtainable: Yes unobtainable due to mental status Exam Const: General: alert and other (restless) Orientation/consciousness: oriented to person, No oriented to place and No oriented to time Skin: Other: Open incisional wound near medial left clavicle with scant yellow drainage, surrounding induration and erythema improving. Psych: Insight: Limited insight present (Psych) Judgement: Limited judgement present (Psych) Objective Data Vital Signs Vital Signs: Vital Signs - 24 hr 06/27/21 17:36 06/27/21 20:00 06/27/21 20:11 Temperature 97.8 F Pulse Rate 83 76 76 Respiratory Rate 19 19 Blood Pressure 125/73 Pulse Oximetry 100 100 06/28/21 00:57 06/28/21 06:00 06/28/21 10:00 Temperature 97.9 F 97.7 F 97.1 F L Pulse Rate 83 88 101 H Respiratory Rate 18 16 18 Blood Pressure 138/64 135/67 145/74 H Pulse Oximetry 90 97 100 06/28/21 14:00 06/28/21 15:31 Temperature 97.3 F L 99.2 F Pulse Rate 100 106 H Respiratory Rate 17 20 Blood Pressure 113/71 117/68 Pulse Oximetry 95 100 Intake/Output Intake/Output: Intake & Output 06/25/21 06/26/21 06/27/21 06/28/21 23:59 23:59 23:59 23:59 Intake Total 1010 2090 1440 600 Output Total 2250 2875 3090 1000 Balance -1240 -785 -1650 -400 Meds/Results Medications: Active Medications Generic Name Dose Route Start Last Admin Trade Name Freq PRN Reason Stop Dose Admin Hydrocodone B
[2021-06-28] MEDS: fentaNYL CITRATE INJ (*CRX) 100 MCG/2 ML VIAL 25 MCG IV PUSH ×3 (18:32→18:49)
--- NOTE | 2021-06-28 18:37 | W.PM.PROC2 ---
Procedure Note - Detailed Date of Procedure 06/28/21 Pre-op Diagnosis sepsis, left knee joint infection, RIGHT FOOT GANGRENE WITH SEPTIC 1ST MTP JOINT Post-op Diagnosis same Procedure Performed LEFT KNEE JOINT INCISION AND DRAINAGE WITH MAJOR SYNOVECTOMY RIGHT FOOT 1ST RAY DEBRIDEMENT OF GANGRENOUS LESION AND 1ST MTP JOINT I AND D Surgeon Homer Alvarez MD Anesthesia general Indications LEFT KNEE SEPSIS RIGHT FOOT ABSCESS AND GANGRENE Description of Procedure PATIENT WAS TAKEN TO THE OPERATING ROOM. BILATERAL LOWER EXTREMITIES WERE PREPPED AND DRAPED IN THE STERILE FASHION. THE LEFT KNEE JOINT WAS ADDRESSED FIRST. MIDLINE SKIN INCISION WAS MADE. MEDIAL PARAPATELLAR ARTHROTOMY WAS PREFORMED. COPIOUS AMOUNTS OF PURULENT FLUID WAS DRAINED FROM THE KNEE JOINT. THERE WAS PREEXISTING ARTHROSIS TO ALL THREE COMPARTMENTS. A MAJOR SYNOVECTOMY WAS PREFORMED. THE KNEE JOINT WAS THEN IRRIGATED WITH 5 LITERS OF ANTIBIOTIC FLUID. A MEDIUM HEMOVAC DRAIN WAS PLACED IN THE JOINT. THE ARTHROTOMY WAS REPAIRED WITH 1 VICRYL WAS THE SUB CUTANEOUS LAYER. THE SKIN WAS REPAIRED WITH MARIUM. DRESSING WAS APPLIED. NEXT THE OPERATING ROOM TEAM RE GOWNED AND GLOVED AND SEPARATE INSTRUMENTATION WAS USED. THE RIGHT FOOT WAS IDENTIFIED. THERE WAS A LARGE FULL THICKNESS GANGRENOUS LESION THE THE MEDIAL FOOT AT THE LEVEL OF THE 1ST MTP JOINT. THIS EXTENDED DORSALLY TO A LEVEL DIRECTLY DORSAL TO THE 1ST MTP JOINT. THERE WAS PURULENCE DRAINING FROM THE REGION. A KNIFE WAS USED TO INCISE THE GANGRENOUS REGION DOWN TO THE FASCIA. THIS ALSO EXPOSED THE 1ST MTP JOINT. THE CAPSULE OF THE JOINT WAS DEBRIDED AND THE JOINT WAS EXPOSED. BOTH FLEXOR AND EXTENSOR TENDONS WERE VISIBLE AND VIABLE. THE PLANTAR SURFACE OF THE 1ST MTP JOINT WAS EXPOSED. THERE WAS LIQUIFIED FATTY TISSUE AND CAPSULE THAT WAS DEBRIDED WELL. ONCE THAT WAS PREFORMED THE WOUND WAS IRRIGATED WITH 3 LITERS OF STERILE WATER. THE WOUND APPEARED CLEAN AND FREE OF ANY SIGNIFICANT DEVITALIZED TISSUE. THE WOUND WAS THEN PACKED WITH BETADINE SOAKED SPONGES AND THEN DRESSED. THE PATIENT WAS EXTUBATED AND SENT TO RECOVERY ROOM. Estimated Blood Loss 5 Urine Output 350 Drains Yes Packing Yes Complications No immediate complications Condition stable Disposition PACU
[2021-06-28 18:42] LABS: Glucose Point of Care 156 mg/dl (65-105)
[2021-06-28] MEDS: HYDROmorphone HCL INJ (*CRX) 1 MG/ML SYR 0.5 MG IV PUSH ×2 (19:15→19:44)
--- NOTE | 2021-06-28 19:17 | SUR.PHASEI ---
DR KLEIN CALLED RE: PATIENT'S SEVERE LEFT KNEE PAIN; DR. ADAM ORDERED DILAUDID. PATIENT HAS BEEN VERY UNCOOPERATIVE. REMOVED MONITORS, LEFT KNEE EMILIANA WRAP.
--- NOTE | 2021-06-28 20:12 | PC.NURSE ---
Pt returned from OR to room 246 by bed at 1924. Pt restless and confused at this time, c/o pain. 0.5mg dilaudid given at this time and Dr Alvarez called for further orders
[2021-06-28] MEDS: HYDROmorphone HCL (*CRX) 1 MG TABLET 3 MG PO (20:58)
[2021-06-28] MEDS: HEPARIN SODIUM 5,000 UNITS/ML VIAL 5000 UNITS SUB-Q (21:00)
[2021-06-28] MEDS: METOPROLOL TARTRATE 25 MG TABLET PO (21:57)
[2021-06-28 22:31] LABS: Glucose Point of Care 154 mg/dl (65-105)
[2021-06-29] MEDS: diazePAM INJ (*CRX) 10 MG/2 ML SYRINGE IV PUSH (00:04)
[2021-06-29] MEDS: PIPERACILLIN/TAZOBACTAM SOD 4.5 GM in SODIUM CHLORIDE 0.9% IV 100 ML 200 ML IVPB ×3 (00:21→17:21)
--- NOTE | 2021-06-29 00:29 | PC.NURSE ---
Pharmacy called regarding IV valium/normal saline dilution. Medication cannot be diluted but can be flushed after admin. 2ml IV valium given over 2 minutes then flushed with 10ml normal saline.
--- NOTE | 2021-06-29 00:31 | PC.NURSE ---
Dr. Alvarez notified pt removed drain and threw it across the room. Order received to cover insertion site with gauze and replace silver mepilex dressing. Pt is AOxself only and unable to comprehend at this time, IV valium given to calm restlessness and prevent further self harm.
[2021-06-29] MEDS: HYDROmorphone HCL (*CRX) 1 MG TABLET 3 MG PO ×4 (00:51→21:44)
--- NOTE | 2021-06-29 01:01 | PC.NURSE ---
Addendum entered by Jaciel Hancock RN 06/29/21 01:13: Pt O2 will be monitored as tolerated by pt. Original Note: Pt still restless and now complaining of severe pain. Pt given PRN dilaudid and pt O2 being monitored continuously via dynamap in room.
[2021-06-29] MEDS: HYDROcodone/acetaminophen (*CRX) 7.5-325 MG TABLET 1 TAB PO ×3 (03:33→18:10)
[2021-06-29] MEDS: HEPARIN SODIUM 5,000 UNITS/ML VIAL 5000 UNITS SUB-Q ×3 (06:56→21:47)
[2021-06-29 08:42] LABS: Basophils Absolute Auto 0.1 K/mm3 (0.0-0.1); Basophils Percent Auto 0.5 % (0.2-1.2); Eosinophils Percent Auto 0.3 % (0-4.4); Hematocrit 38.6 % (42.0-52.0); Hemoglobin 12.3 g/dL (14.0-18.0); Immature Granulocyte Absolute 0.08 K/mm3 (0.00-0.031); Immature Granulocyte Percent A 0.8 % (0-0.5); Lymphocytes Absolute Auto 1.09 K/mm3 (0.9-3.2); Lymphocytes Percent Auto 11.4 % (18.3-44.2); Mean Corpuscular HGB Conc 31.9 g/dl (32-36); Mean Corpuscular Hemoglobin 28.8 pg (26-34); Mean Corpuscular Volume 90.4 fl (80-100); Mean Platelet Volume 8.6 fl (7.4-10.4); Monocytes Absolute Auto 0.8 K/mm3 (0.1-0.6); Monocytes Percent Auto 8.8 % (2.6-8.5); Neutrophils Absolute Auto 7.4 K/mm3 (1.3-6.7); Neutrophils Percent Auto 78.2 % (45.5-73.1); Platelet Count Result 482 k/mm3 (150-375); Red Blood Count 4.27 M/mm3 (4.6-6.20); Red Cell Distribution Width 13.9 % (11.5-14.5); White Blood Count 9.5 K/mm3 (4.5-10.0)
[2021-06-29 08:45] LABS: Glucose Point of Care 143 mg/dl (65-105)
[2021-06-29 08:52] VITALS: PULSE 119
[2021-06-29] MEDS: NICOTINE (*PBKC) 21 MG PATCH 1 PATCH TRANSDERM (08:52)
[2021-06-29] MEDS: METOPROLOL TARTRATE 25 MG TABLET PO ×2 (08:52→21:44)
[2021-06-29] MEDS: SILVERGEL (ELTA) 45 ML 1 APPLIC TOPICAL (08:53)
[2021-06-29] MEDS: INSULIN GLARGINE (*BKC) 100 UNITS/ML 30 UNITS SUB-Q (09:00)
--- NOTE | 2021-06-29 09:24 | WPDANESPN ---
Anes - Prog Note Post-Op Date/Time: 06/29/21 09:24 Cardiovascular status: normal Respiratory status: normal Airway patency: baseline Mental status: baseline Post-Op hydration status: normal Vital Signs: Last Vital Signs Temp 36.4 C 06/28/21 21:20 Pulse 119 H 06/29/21 08:52 Resp 16 06/28/21 21:20 BP 142/81 H 06/28/21 21:20 Pulse Ox 98 06/28/21 21:20 Pain Score (VAS): 5 I/O: Intake & Output 06/28/21 06/29/21 06/29/21 23:59 07:59 15:59 Intake Total 1600 300 Output Total 1250 350 Balance 350 300 -350 Laboratory Tests 06/29/21 08:32 06/28/21 06/28/21 06/28/21 12:19 18:38 21:56 WBC RBC Hgb Hct MCV MCH MCHC RDW Plt Count MPV Immature Gran % (Auto) Neut % (Auto) Lymph % (Auto) [place] % (Auto) Eos % (Auto) Baso % (Auto) Lymph # (Auto) [place] # (Auto) Eos # (Auto) Baso # (Auto) Abs Immat Gran (auto) Absolute Neuts (auto) Absolute Nucleated RBC Nucleated RBC % ESR Sodium Potassium Chloride Carbon Dioxide Anion Gap BUN Creatinine Estim Creat Clear Calc Estimated GFR Glucose POC Capillary Glucose 173 H 156 H 154 H Calcium C-Reactive Protein 06/29/21 06/29/21 06/29/21 08:32 08:32 08:32 WBC 9.5 RBC 4.27 L Hgb 12.3 L Hct 38.6 L MCV 90.4 MCH 28.8 MCHC 31.9 L RDW 13.9 Plt Count 482 H MPV 8.6 Immature Gran % (Auto) 0.8 H Neut % (Auto) 78.2 H Lymph % (Auto) 11.4 L [place] % (Auto) 8.8 H Eos % (Auto) 0.3 Baso % (Auto) 0.5 Lymph # (Auto) 1.09 [place] # (Auto) 0.8 H Eos # (Auto) 0.0 Baso # (Auto) 0.1 Abs Immat Gran (auto) 0.08 H Absolute Neuts (auto) 7.4 H Absolute Nucleated RBC 0.0 Nucleated RBC % 0.0 ESR Pending Sodium Pending Potassium Pending Chloride Pending Carbon Dioxide Pending Anion Gap Pending BUN Pending Creatinine Pending Estim Creat Clear Calc Pending Estimated GFR Pending Glucose Pending POC Capillary Glucose Calcium Pending C-Reactive Protein Pending 06/29/21 08:40 WBC RBC Hgb Hct MCV MCH MCHC RDW Plt Count MPV Immature Gran % (Auto) Neut % (Auto) Lymph % (Auto) [place] % (Auto) Eos % (Auto) Baso % (Auto) Lymph # (Auto) [place] # (Auto) Eos # (Auto) Baso # (Auto) Abs Immat Gran (auto) Absolute Neuts (auto) Absolute Nucleated RBC Nucleated RBC % ESR Sodium Potassium Chloride Carbon Dioxide Anion Gap BUN Creatinine Estim Creat Clear Calc Estimated GFR Glucose POC Capillary Glucose 143 H Calcium C-Reactive Protein Microbiology 06/23/21 07:39 Blood Blood Culture - Final 06/23/21 07:39 Blood Blood Culture - Final 06/26/21 12:20 Abscess Anaerobic Culture - Preliminary 06/26/21 12:20 Abscess Aerobic Culture - Preliminary Post-procedural complaints: none Patient Feedback: Patient satisfied with anesthetic care.
[2021-06-29 09:42] LABS: Erythrocyte Sedimentation Rate 63 mm/hr (0-20)
[2021-06-29 09:43] LABS: Anion Gap 9 mmol/L (8-16); Blood Urea Nitrogen 17 mg/dL (9-20); CRP 15.3 mg/dL (<1.0); Calcium 8.9 mg/dL (8.4-10.2); Carbon Dioxide 29 mmol/L (22-30); Chloride 94 mmol/L (98-107); Estimated CRCL calculation 122 ml/min; Estimated Glomerular Filt Rate > 60; Glucose 149 mg/dL (65-110); Potassium 4.1 mmol/L (3.4-5.0); Sodium 132 mmol/L (137-145)
[2021-06-29 11:38] LABS: Glucose Point of Care 220 mg/dl (65-105)
[2021-06-29] MEDS: INSULIN ASPART (*BKC) 100 UNITS/ML SUB-Q ×2 (11:50→17:21)
--- NOTE | 2021-06-29 12:11 | PM.IMPN ---
Progress Note: A&P Assessment and Plan (1) Sepsis: Qualifiers: Sepsis type: sepsis due to unspecified organism Sepsis acute organ dysfunction status: with acute organ dysfunction Severe sepsis acute organ dysfunction type: encephalopathy Severe sepsis shock status: without septic shock Qualified Code(s): A41.9 - Sepsis, unspecified organism; R65.20 - Severe sepsis without septic shock; G93.40 - Encephalopathy, unspecified Code(s): A41.9 - Sepsis, unspecified organism Status: Acute Assessment and Plan: Patient underwent incision and drainage of chest superficial fluid collection on June 27, 2021. He is status post Left Knee Incision and Drainage with Synovectomy, Right Foot Diabetic Foot Metatarsophalangeal Joint Ulcer Debridement on June 28, 2021. He is improving clinically. He remains stable and afebrile. WBC count is trending down and now plateauing. CRP is plateauing around 15.. He is a little bit tachycardic while on low-dose metoprolol. Will increase metoprolol. On admission patient met sepsis criteria. Currently being treated for with right ankle wound, was found to have fluid collection to the the left knee which has been drained, and similar fluid collection found on the anterior chest. Blood culture and synovial fluid cultures are growing Streptococcus pneumoniae. Wound culture is growing peptostreptococcus and MRSA. Patient was appropriately started on daptomycin and zosyn. Reimaging of the fluid collection of the anterior chest suggest phlegmon versus abscess; although imaging supports a support a collection superficial to the mediastinum there is an ongoing concern of about the possibility of mediastinitis, and arrangement were made to transfer the patient to higher level of care. Unfortunately due to the current pandemic, patient is to remain in our facility while awaiting for a bed. He is currently at waitlisted at [facility]. Continue IV antibiotic. Mild confusion is likely his baseline. Avoid sedative hypnotic medication. (2) Cellulitis of right foot: Code(s): L03.115 - Cellulitis of right lower limb Status: Acute Assessment and Plan: Current continue wound care and IV antibiotics. Currently blood culture growing Streptococcus pneumonia. Repeat blood culture from June 20, 2021 and 06/23/2021 are unrevealing. (3) Atrial fibrillation with RVR: Code(s): I48.91 - Unspecified atrial fibrillation Status: Acute Assessment and Plan: Patient was briefly on amiodarone drip. He converted to normal sinus rhythm. Per Cardiology recommendation was started on low-dose metoprolol 12.5 mg p.o. b.i.d. he is tachycardic and stable. We will increase metoprolol to 25 in 12.5 mg p.o. b.i.d.. (4) Hyponatremia: Code(s): E87.1 - Hypo-osmolality and hyponatremia Status: Acute Assessment and Plan: mild hyponatremia with a serum sodium of 132 (5) Septic arthritis: Qualifiers: Septic arthritis location: foot Septic arthritis organism: due to unspecified organism Laterality: left Qualified Code(s): M00.9 - Pyogenic arthritis, unspecified Code(s): M00.9 - Pyogenic arthritis, unspecified Status: Acute Assessment and Plan: Left knee septic arthritis, status post I&D. Orthopedic surgery is following. Appreciate recommendation. Continue IV antibiotics. (6) Lactic acidosis: Code(s): E87.2 - Acidosis Status: Acute Assessment and Plan: Resolved. Patient hemodynamically stable. Lactate elevated at presentation at 3.1. Repeat lactate is 1.2. Patient is stable hemodynamically. 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
--- NOTE | 2021-06-29 12:53 | PM.PNORT ---
Progress Note: A&P Assessment and Plan (1) Septic arthritis of knee, left: Qualifiers: Septic arthritis organism: streptococcal Qualified Code(s): M00.262 - Other streptococcal arthritis, left knee Code(s): M00.9 - Pyogenic arthritis, unspecified Status: Acute Assessment and Plan: Patient is postop day 1 status post left knee joint I and D and synovectomy. Incision well approximated. Patient self pulled his drain overnight. Dressing removed and changed today. Knee with mild erythema and tenderness. Mild swelling. Pain with flexion extension. Patient reports too much pressure from the ice packs. Will order cryocuff for comfort and ice treatment. Continue IV antibiotics under the direction of the hospitalist service. (2) Diabetic foot ulcers: Qualifiers: Diabetic foot ulcer location: toe Diabetes mellitus type: type 2 Laterality: right Non-pressure ulcer stage: with necrosis of muscle Qualified Code(s): E11.621 - Type 2 diabetes mellitus with foot ulcer; L97.513 - Non-pressure chronic ulcer of other part of right foot with necrosis of muscle Code(s): E11.621 - Type 2 diabetes mellitus with foot ulcer; L97.509 - Non-pressure chronic ulcer of other part of unspecified foot with unspecified severity Status: Acute Assessment and Plan: Large underlying ulcer status post surgical debridement of the right hallux which extends from the dorsum to the plantar aspect of the 1st MTP joint with visible tendon exposure. Discussed at length today the potential for poor wound healing verses possible need for 1st ray amputation given extensive infection and now lack of tissue. Patient is not agreeable currently would like to continue conservative treatment. Recommended initiating treatment at this time with silver gel to the entire hallux and dry gauze. Patient would be a good candidate for a wound VAC however there was concern that he would be non compliant due to his issues with combativeness overnight and pulling of his left knee drain. We will continue to evaluate and potentially initiate a wound VAC if continued improvement in mentation is noted. Ulcer on the lateral aspect 15 MTP joint which was debrided at the bedside over 1 week ago continues to show improvement. Continue silver gel and transfer dressing to the right lateral foot wound daily. Continue IV antibiotics under the direction of the hospitalist staff. Will continue to follow. (3) DJD of AC (acromioclavicular) joint: Code(s): M19.019 - Primary osteoarthritis, unspecified shoulder Status: Acute Assessment and Plan: The patient and nurse with concerns of right shoulder. Radiographs obtained reveal moderate AC joint osteoarthritis. Patient with no new reported falls to the right shoulder. Patient has pain with palpation over the AC joint and forward flexion. Patient reports improvement in pain status post 2 days ago. Patient may require follow-up regarding his shoulder in the future however we will continue to monitor at this time. Pain control as needed. Topical analgesics or ice pack. (4) Abscess of chest: Code(s): J86.9 - Pyothorax without fistula Status: Acute Assessment and Plan: Patient is being followed by General surgery for chest abscess. Defer treatment. (5) Abscess of sternal region: Code(s): L02.213 - Cutaneous abscess of chest wall Status: Acute Assessment and Plan: Patient is being followed by General surgery. Additional Plan Reviewed case and findings with attending physician, Dr. Alvarez. No further recommendations today. Time Spent With Patient Time with patient: 15 - 25 minutes Subjective Subjective Date/Time Seen: 06/29/21 12:53 Post Op day: 1 Interval history: POD#1: LEFT KNEE JOINT INCISION AND DRAINAGE WITH MAJOR SYNOVECTOMY RIGHT FOOT 1ST RAY DEBRIDEMENT OF GANGRENOUS LESION AND 1ST MTP JOINT I AND D Patient more
[2021-06-29] MEDS: DAPTOMYCIN IVPB (13:16)
[2021-06-29] MEDS: SODIUM CHLORIDE 0.9% IVPB (13:16)
[2021-06-29 13:40] VITALS: BP 123/63; PULSE 96; RESP 16; TEMP 36.5; O2SAT 98
[2021-06-29] MEDS: diphenhydrAMINE HCl CAP 25 MG CAPSULE 50 MG PO ×2 (15:44→21:56)
[2021-06-29 16:24] LABS: Glucose Point of Care 203 mg/dl (65-105)
[2021-06-29 17:37] VITALS: BP 128/61; PULSE 100; RESP 13; TEMP 36.3; O2SAT 100
[2021-06-29 21:44] VITALS: PULSE 100
[2021-06-29 21:49] VITALS: BP 132/66; PULSE 79; RESP 20; TEMP 36.6; O2SAT 100
[2021-06-29 22:05] LABS: Glucose Point of Care 234 mg/dl (65-105)
--- NOTE | 2021-06-29 23:00 | PC.NURSE ---
Pt refusing cryocuff at this time, unable to comprehend education.
[2021-06-30] VITALS (8 sets, daily range): BP systolic 111–126; BP diastolic 63–71; PULSE 72–96; RESP 14–18; TEMP 36–36.9; O2SAT 94–100
[2021-06-30] MEDS: PIPERACILLIN/TAZOBACTAM SOD 4.5 GM in SODIUM CHLORIDE 0.9% IV 100 ML 200 ML IVPB ×3 (00:51→11:32)
[2021-06-30] MEDS: HYDROcodone/acetaminophen (*CRX) 7.5-325 MG TABLET 1 TAB PO ×2 (04:27→12:51)
[2021-06-30] MEDS: diphenhydrAMINE HCl CAP 25 MG CAPSULE 50 MG PO ×2 (04:28→11:32)
[2021-06-30 05:42] LABS: Basophils Absolute Auto 0.1 K/mm3 (0.0-0.1); Basophils Percent Auto 0.5 % (0.2-1.2); Eosinophils Absolute Auto 0.1 K/mm3 (0-0.3); Eosinophils Percent Auto 0.9 % (0-4.4); Hematocrit 37.6 % (42.0-52.0); Hemoglobin 12.1 g/dL (14.0-18.0); Immature Granulocyte Absolute 0.09 K/mm3 (0.00-0.031); Lymphocytes Absolute Auto 1.17 K/mm3 (0.9-3.2); Lymphocytes Percent Auto 12.7 % (18.3-44.2); Mean Corpuscular HGB Conc 32.2 g/dl (32-36); Mean Corpuscular Hemoglobin 29.2 pg (26-34); Mean Corpuscular Volume 90.8 fl (80-100); Mean Platelet Volume 8.6 fl (7.4-10.4); Monocytes Absolute Auto 0.8 K/mm3 (0.1-0.6); Neutrophils Percent Auto 75.9 % (45.5-73.1); Platelet Count Result 428 k/mm3 (150-375); Red Blood Count 4.14 M/mm3 (4.6-6.20); White Blood Count 9.2 K/mm3 (4.5-10.0)
[2021-06-30 06:28] LABS: Anion Gap 6 mmol/L (8-16); Blood Urea Nitrogen 13 mg/dL (9-20); Calcium 8.9 mg/dL (8.4-10.2); Carbon Dioxide 30 mmol/L (22-30); Chloride 94 mmol/L (98-107); Erythrocyte Sedimentation Rate 104 mm/hr (0-20); Estimated CRCL calculation 108 ml/min; Estimated Glomerular Filt Rate > 60; Glucose 221 mg/dL (65-110); Potassium 3.9 mmol/L (3.4-5.0); Sodium 130 mmol/L (137-145)
[2021-06-30 08:38] LABS: Glucose Point of Care 186 mg/dl (65-105)
[2021-06-30] MEDS: HEPARIN SODIUM 5,000 UNITS/ML VIAL 5000 UNITS SUB-Q ×3 (09:35→21:28)
[2021-06-30] MEDS: NICOTINE (*PBKC) 21 MG PATCH 1 PATCH TRANSDERM (09:36)
[2021-06-30] MEDS: METOPROLOL TARTRATE 25 MG TABLET PO ×2 (09:36→20:40)
[2021-06-30] MEDS: INSULIN GLARGINE (*BKC) 100 UNITS/ML 30 UNITS SUB-Q (09:40)
[2021-06-30] MEDS: HYDROmorphone HCL (*CRX) 1 MG TABLET 3 MG PO ×3 (09:40→20:43)
--- NOTE | 2021-06-30 10:13 | PM.PNORT ---
Progress Note: A&P Assessment and Plan (1) Septic arthritis of knee, left: Qualifiers: Septic arthritis organism: streptococcal Qualified Code(s): M00.262 - Other streptococcal arthritis, left knee Code(s): M00.9 - Pyogenic arthritis, unspecified Status: Acute Assessment and Plan: POD #2: left knee joint I and D and synovectomy. Incision well approximated. Keep dressing in place. Knee with continued improvement in erythema and tenderness. Mild swelling. Improvement in ROM. Compliant with cryocuff. Ice. Elevate. Pain control. Continue IV antibiotics under the direction of the hospitalist service. (2) Diabetic foot ulcers: Qualifiers: Diabetic foot ulcer location: toe Diabetes mellitus type: type 2 Laterality: right Non-pressure ulcer stage: with necrosis of muscle Qualified Code(s): E11.621 - Type 2 diabetes mellitus with foot ulcer; L97.513 - Non-pressure chronic ulcer of other part of right foot with necrosis of muscle Code(s): E11.621 - Type 2 diabetes mellitus with foot ulcer; L97.509 - Non-pressure chronic ulcer of other part of unspecified foot with unspecified severity Status: Acute Assessment and Plan: Large underlying ulcer status post surgical debridement of the right hallux which extends from the dorsum to the plantar aspect of the 1st MTP joint with visible tendon exposure. Reiterated the potential for poor wound healing verses possible need for 1st ray amputation given extensive infection and now lack of tissue. Patient is not agreeable currently would like to continue conservative treatment. Recommended continuing treatment with silver gel to the entire hallux and dry gauze. Ulcer on the lateral aspect 15 MTP joint which was debrided at the bedside over 1 week ago continues to show improvement. Continue silver gel and transfer dressing to the right lateral foot wound daily. Continue IV antibiotics under the direction of the hospitalist staff. Will continue to follow. (3) DJD of AC (acromioclavicular) joint: Code(s): M19.019 - Primary osteoarthritis, unspecified shoulder Status: Acute Assessment and Plan: Radiographs obtained reveal moderate AC joint osteoarthritis. Continue to monitor. WBAT (4) Abscess of chest: Code(s): J86.9 - Pyothorax without fistula Status: Acute Assessment and Plan: Patient is being followed by General surgery for chest abscess. Defer treatment. (5) Abscess of sternal region: Code(s): L02.213 - Cutaneous abscess of chest wall Status: Acute Assessment and Plan: Patient is being followed by General surgery. Additional Plan Reviewed case and findings with attending physician, Dr. Alvarez. No further recommendations today. Subjective Subjective Date/Time Seen: 06/30/21 10:13 Interval history: POD#2: LEFT KNEE JOINT INCISION AND DRAINAGE WITH MAJOR SYNOVECTOMY RIGHT FOOT 1ST RAY DEBRIDEMENT OF GANGRENOUS LESION AND 1ST MTP JOINT I AND D Patient alert and cooperative. No new complaints. Improvement in left knee pain. Review of Systems Review of Systems: All systems reviewed & are unremarkable except as noted in HPI and below Constitutional: Constitutional: Reports as per HPI Exam Const: General: comfortable Resp: Effort & Inspection: normal respiratory effort Cardio: Rate: regular rate Rhythm: regular rhythm Other: Chest with dressing in place over sternum. Erythema which is blanchable is spreading more laterally it appears. Induration noted. Tender to touch. Dressing intact. GI: Inspection: non-distended GI Palp: Yes Soft to palpation and No Tenderness to palpation present (GI) Skin: Wounds: wounds noted (see below ) Neuro: Cognition (Neuro): normal cognition (improved today ) Speech: normal speech Extrem: Other: Patient has a large wound on the hallux status post surgical intervention. Wound extends from the dorsal aspect to
[2021-06-30 11:40] LABS: Glucose Point of Care 210 mg/dl (65-105)
[2021-06-30] MEDS: INSULIN ASPART (*BKC) 100 UNITS/ML SUB-Q (11:41)
--- NOTE | 2021-06-30 12:09 | PM.PNGS ---
Progress Note: A&P Assessment and Plan (1) Abscess of sternal region: Code(s): L02.213 - Cutaneous abscess of chest wall Status: Acute Assessment and Plan: Continue daily packing changes. Continue antibiotics. Wound will hopefully continue to slowly improve. Will follow every 2-3 days for now. Subjective Subjective Date/Time Seen: 06/30/21 12:09 Interval history: Still having some purulent drainage from Sternal wound. Exam Skin: Other: Packing removed and wound inspected. Purulent drainage continues with manual compression. Erythema and induration slightly improved. Objective Data Vital Signs Vital Signs: Vital Signs - 24 hr 06/29/21 13:40 06/29/21 17:37 06/29/21 21:44 Temperature 36.5 C 36.3 C L Pulse Rate 96 100 100 Respiratory Rate 16 13 Blood Pressure 123/63 128/61 Pulse Oximetry 98 100 06/29/21 21:49 06/30/21 04:58 06/30/21 09:36 Temperature 36.6 C 36.6 C Pulse Rate 79 92 72 Respiratory Rate 20 16 Blood Pressure 132/66 126/63 Pulse Oximetry 100 98 06/30/21 10:58 Temperature 36.9 C Pulse Rate 96 Respiratory Rate 16 Blood Pressure 113/69 Pulse Oximetry 98 Intake/Output Intake/Output: Intake & Output 06/27/21 06/28/21 06/29/21 06/30/21 23:59 23:59 23:59 23:59 Intake Total 1440 2200 1010 460 Output Total 3090 2250 1725 1250 [facility], [place] -1650 [phone] Meds/Results Medications: Active Medications Generic Name Dose Route Start Last Admin Trade Name Freq PRN Reason Stop Dose Admin Hydrocodone Bitart/Acetaminophen 1 tab 06/24/21 11:44 06/30/21 04:27 Hydrocodone/Acetaminophen (*Crx) 7.5-325 Mg Tablet PO 1 tab Q6H PRN Administration Pain Rated 4-6 Dextrose 12.5 gm 06/19/21 03:19 Dextrose 50% 25 Gm/50 Ml Syringe IV PUSH PRN PRN Hypoglycemia Protocol Diazepam 10 mg 06/28/21 20:06 06/29/21 00:04 Diazepam Inj (*Crx) 10 Mg/2 Ml Syringe IV PUSH 10 mg Q8H PRN Administration Muscle Spasm Diphenhydramine HCl 50 mg 06/29/21 15:40 06/30/21 11:32 Diphenhydramine Hcl Cap 25 Mg Capsule PO 50 mg Q6H PRN Administration Itching Glucagon 1 mg 06/19/21 03:19 Glucagon For Inj 1 Mg Vial IM PRN PRN Hypoglycemia Protocol Glucose 15 gm 06/19/21 03:19 Glucose Oral Gel 15 Gm Of Glucse In 37.5 Gm Tube PO PRN PRN Hypoglycemia Protocol Heparin Sodium (Porcine) 5,000 units 06/22/21 14:00 06/30/21 09:35 Heparin Sodium 5,000 Units/Ml Vial SUB-Q 5,000 units Q8H LINO Administration Hydromorphone HCl 3 mg 06/24/21 14:58 06/30/21 09:40 Hydromorphone Hcl (*Crx) 1 Mg Tablet PO 3 mg Q4H PRN Administration Pain Rated 7-10 Dextrose 1,000 mls @ 100 mls/hr 06/19/21 03:19 Dextrose 5% 1,000 Ml IVPB PRN PRN Hypoglycemia Protocol Piperacillin Sod/Tazobactam 100 mls @ 200 mls/hr 06/29/21 12:00 06/30/21 11:32 Sod 4.5 gm/ Sodium Chloride IVPB 200 mls/hr Q6H LINO Administration Daptomycin 400 mg/ Sodium 50 mls @ 100 mls/hr 06/29/21 13:00 06/29/21 13:45 Chloride IVPB Infused Q24H LINO Infusion Insulin Aspart 4 - 8 units 06/19/21 08:00 06/30/21 11:41 Insulin Aspart (*Bkc) 100 Units/Ml SUB-Q 4 units TIDWM LINO Administration Protocol Insulin Glargine 30 units 06/28/21 09:00 06/30/21 09:40 Insulin Glargine (*Bkc) 100 Units/Ml SUB-Q 30 units DAILY LINO Administration Lidocaine 2 patch 06/23/21 09:00 06/30/21 09:47 Lidocaine 5% Patch TRANSDERM Not Given DAILY [facility] Metoprolol Tartrate 25 mg 06/24/21 21:00 06/30/21 09:36 Metoprolol Tartrate 25 Mg Tablet PO 25 mg Q12HR LINO Administration Miconazole Nitrate 1 applic 06/29/21 21:00 06/30/21 09:36 Miconazole 2% Antifungal Ointment 56 Gm TOPICAL 1 applic Q12HR LINO Administration Morphine Sulfate 3 mg 06/28/21 20:01 Morphine Sulfate (*Crx) 2 Mg/Ml Inj IV PUSH Q2H PRN Severe Pain Nicotine 1 patch 06/21/21
[2021-06-30] MEDS: DAPTOMYCIN IVPB (12:51)
[2021-06-30] MEDS: SODIUM CHLORIDE 0.9% IVPB (12:51)
--- NOTE | 2021-06-30 15:12 | PM.IMPN ---
Progress Note: A&P Assessment and Plan (1) Sepsis: Qualifiers: Sepsis type: sepsis due to unspecified organism Sepsis acute organ dysfunction status: with acute organ dysfunction Severe sepsis acute organ dysfunction type: encephalopathy Severe sepsis shock status: without septic shock Qualified Code(s): A41.9 - Sepsis, unspecified organism; R65.20 - Severe sepsis without septic shock; G93.40 - Encephalopathy, unspecified Code(s): A41.9 - Sepsis, unspecified organism Status: Acute Assessment and Plan: Patient underwent incision and drainage of chest superficial fluid collection on June 27, 2021. He is status post Left Knee Incision and Drainage with Synovectomy, Right Foot Diabetic Foot Metatarsophalangeal Joint Ulcer Debridement on June 28, 2021. He is improving clinically. He remains stable and afebrile. WBC count is trending down and now plateauing. CRP is plateauing around 15.. He is a little bit tachycardic while on low-dose metoprolol. Will increase metoprolol. On admission patient met sepsis criteria. Currently being treated for with right ankle wound, was found to have fluid collection to the the left knee which has been drained, and similar fluid collection found on the anterior chest. Blood culture and synovial fluid cultures are growing Streptococcus pneumoniae. Wound culture is growing peptostreptococcus and MRSA. Patient was appropriately started on daptomycin and zosyn. Reimaging of the fluid collection of the anterior chest suggest phlegmon versus abscess; although imaging supports a support a collection superficial to the mediastinum there is an ongoing concern of about the possibility of mediastinitis, and arrangement were made to transfer the patient to higher level of care. Unfortunately due to the current pandemic, patient is to remain in our facility while awaiting for a bed. He is currently at waitlisted at [facility]. Continue IV antibiotic. Mild confusion is likely his baseline. Avoid sedative hypnotic medication. (2) Cellulitis of right foot: Code(s): L03.115 - Cellulitis of right lower limb Status: Acute Assessment and Plan: Current continue wound care and IV antibiotics. Currently blood culture growing Streptococcus pneumonia. Repeat blood culture from June 20, 2021 and 06/23/2021 are unrevealing. (3) Atrial fibrillation with RVR: Code(s): I48.91 - Unspecified atrial fibrillation Status: Acute Assessment and Plan: Patient was briefly on amiodarone drip. He converted to normal sinus rhythm. Per Cardiology recommendation was started on low-dose metoprolol 12.5 mg p.o. b.i.d. he is tachycardic and stable. We will increase metoprolol to 25 in 12.5 mg p.o. b.i.d.. (4) Hyponatremia: Code(s): E87.1 - Hypo-osmolality and hyponatremia Status: Acute Assessment and Plan: mild hyponatremia with a serum sodium of 132 (5) Septic arthritis: Qualifiers: Septic arthritis location: foot Septic arthritis organism: due to unspecified organism Laterality: left Qualified Code(s): M00.9 - Pyogenic arthritis, unspecified Code(s): M00.9 - Pyogenic arthritis, unspecified Status: Deleted Assessment and Plan: Left knee septic arthritis, status post I&D. Orthopedic surgery is following. Appreciate recommendation. Continue IV antibiotics. (6) Lactic acidosis: Code(s): E87.2 - Acidosis Status: Acute Assessment and Plan: Resolved. Patient hemodynamically stable. Lactate elevated at presentation at 3.1. Repeat lactate is 1.2. Patient is stable hemodynamically. (7) Type 2 diabetes mellitus with hyperglycemia: Qualifiers: Diabetes mellitus intermodal dispatcher insulin use: without intermodal dispatcher use Qualified Code(s): E11.65 - Type 2 diabetes mellitus with hyperglycemia Code(s): E11.65 - Type 2 diabetes mellitus with hyperglycemia Status: Acute Assessment and Plan:
[2021-06-30 16:34] LABS: Glucose Point of Care 171 mg/dl (65-105)
[2021-06-30] MEDS: CLINDAMYCIN 900 MG/D5W 50 ML 900 MG/50 ML PIGGYBACK 50 MG IVPB ×2 (16:42→21:19)
[2021-06-30] MEDS: INSULIN GLARGINE (*BKC) 100 UNITS/ML 20 UNITS SUB-Q (16:43)
[2021-06-30 21:41] LABS: Glucose Point of Care 239 mg/dl (65-105)
[2021-07-01] VITALS (11 sets, daily range): BP systolic 106–129; BP diastolic 45–71; PULSE 74–100; RESP 12–20; TEMP 35.9–37.1; O2SAT 93–100
[2021-07-01] MEDS: HYDROmorphone HCL (*CRX) 1 MG TABLET 3 MG PO ×2 (01:48→16:20)
[2021-07-01] MEDS: HYDROcodone/acetaminophen (*CRX) 7.5-325 MG TABLET 1 TAB PO ×2 (03:34→10:51)
[2021-07-01 05:43] LABS: Basophils Absolute Auto 0.1 K/mm3 (0.0-0.1); Basophils Percent Auto 0.8 % (0.2-1.2); Eosinophils Absolute Auto 0.1 K/mm3 (0-0.3); Eosinophils Percent Auto 1.7 % (0-4.4); Hemoglobin 12.2 g/dL (14.0-18.0); Immature Granulocyte Absolute 0.09 K/mm3 (0.00-0.031); Immature Granulocyte Percent A 1.1 % (0-0.5); Lymphocytes Absolute Auto 1.54 K/mm3 (0.9-3.2); Lymphocytes Percent Auto 18.6 % (18.3-44.2); Mean Corpuscular HGB Conc 32.1 g/dl (32-36); Mean Corpuscular Hemoglobin 28.8 pg (26-34); Mean Corpuscular Volume 89.8 fl (80-100); Mean Platelet Volume 8.9 fl (7.4-10.4); Monocytes Absolute Auto 0.7 K/mm3 (0.1-0.6); Monocytes Percent Auto 8.7 % (2.6-8.5); Neutrophils Absolute Auto 5.7 K/mm3 (1.3-6.7); Neutrophils Percent Auto 69.1 % (45.5-73.1); Platelet Count Result 483 k/mm3 (150-375); Red Blood Count 4.23 M/mm3 (4.6-6.20); Red Cell Distribution Width 13.8 % (11.5-14.5); White Blood Count 8.3 K/mm3 (4.5-10.0)
[2021-07-01 05:58] LABS: Anion Gap 1 mmol/L (8-16); Blood Urea Nitrogen 17 mg/dL (9-20); Calcium 9.4 mg/dL (8.4-10.2); Carbon Dioxide 33 mmol/L (22-30); Chloride 94 mmol/L (98-107); Estimated CRCL calculation 108 ml/min; Estimated Glomerular Filt Rate > 60; Glucose 278 mg/dL (65-110); Potassium 4.6 mmol/L (3.4-5.0); Sodium 128 mmol/L (137-145)
[2021-07-01] MEDS: HEPARIN SODIUM 5,000 UNITS/ML VIAL 5000 UNITS SUB-Q ×3 (06:16→21:30)
[2021-07-01] MEDS: CLINDAMYCIN 900 MG/D5W 50 ML 900 MG/50 ML PIGGYBACK 50 MG IVPB ×3 (06:16→21:31)
[2021-07-01 06:18] LABS: CRP 19.2 mg/dL (<1.0)
[2021-07-01 07:27] LABS: Erythrocyte Sedimentation Rate 60 mm/hr (0-20)
[2021-07-01 08:20] LABS: Glucose Point of Care 261 mg/dl (65-105)
[2021-07-01] MEDS: NICOTINE (*PBKC) 21 MG PATCH 1 PATCH TRANSDERM (08:45)
[2021-07-01] MEDS: METOPROLOL TARTRATE 25 MG TABLET PO ×2 (08:45→21:31)
[2021-07-01] MEDS: LIDOCAINE 5% PATCH 2 PATCH TRANSDERM (08:48)
[2021-07-01] MEDS: INSULIN ASPART (*BKC) 100 UNITS/ML SUB-Q ×2 (10:11→11:55)
[2021-07-01] MEDS: INSULIN GLARGINE (*BKC) 100 UNITS/ML 20 UNITS SUB-Q ×2 (10:16→17:05)
[2021-07-01 11:43] LABS: Glucose Point of Care 205 mg/dl (65-105)
[2021-07-01] MEDS: DAPTOMYCIN IVPB (14:18)
[2021-07-01] MEDS: SODIUM CHLORIDE 0.9% IVPB (14:18)
[2021-07-01 16:47] LABS: Glucose Point of Care 158 mg/dl (65-105)
--- NOTE | 2021-07-01 16:57 | PM.IMPN ---
Progress Note: A&P Assessment and Plan (1) Sepsis: Qualifiers: Sepsis type: sepsis due to unspecified organism Sepsis acute organ dysfunction status: with acute organ dysfunction Severe sepsis acute organ dysfunction type: encephalopathy Severe sepsis shock status: without septic shock Qualified Code(s): A41.9 - Sepsis, unspecified organism; R65.20 - Severe sepsis without septic shock; G93.40 - Encephalopathy, unspecified Code(s): A41.9 - Sepsis, unspecified organism Status: Acute Assessment and Plan: Patient underwent incision and drainage of chest superficial fluid collection on June 27, 2021. He is status post Left Knee Incision and Drainage with Synovectomy, Right Foot Diabetic Foot Metatarsophalangeal Joint Ulcer Debridement on June 28, 2021. He is improving clinically. He remains stable and afebrile. WBC count is trending down and now plateauing. CRP is plateauing around 15.. He is a little bit tachycardic while on low-dose metoprolol. Will increase metoprolol. On admission patient met sepsis criteria. Currently being treated for with right ankle wound, was found to have fluid collection to the the left knee which has been drained, and similar fluid collection found on the anterior chest. Blood culture and synovial fluid cultures are growing Streptococcus pneumoniae. Wound culture is growing peptostreptococcus and MRSA. Patient was appropriately started on daptomycin and zosyn. Reimaging of the fluid collection of the anterior chest suggest phlegmon versus abscess; although imaging supports a support a collection superficial to the mediastinum there is an ongoing concern of about the possibility of mediastinitis, and arrangement were made to transfer the patient to higher level of care. Unfortunately due to the current pandemic, patient is to remain in our facility while awaiting for a bed. He is currently at waitlisted at [facility]. Continue IV antibiotic. Mild confusion is likely his baseline. Avoid sedative hypnotic medication. (2) Cellulitis of right foot: Code(s): L03.115 - Cellulitis of right lower limb Status: Acute Assessment and Plan: Current continue wound care and IV antibiotics. Currently blood culture growing Streptococcus pneumonia. Repeat blood culture from June 20, 2021 and 06/23/2021 are unrevealing. (3) Atrial fibrillation with RVR: Code(s): I48.91 - Unspecified atrial fibrillation Status: Acute Assessment and Plan: Patient was briefly on amiodarone drip. He converted to normal sinus rhythm. Per Cardiology recommendation was started on low-dose metoprolol 12.5 mg p.o. b.i.d. he is tachycardic and stable. We will increase metoprolol to 25 in 12.5 mg p.o. b.i.d.. (4) Hyponatremia: Code(s): E87.1 - Hypo-osmolality and hyponatremia Status: Acute Assessment and Plan: mild hyponatremia with a serum sodium of 132 (5) Septic arthritis: Qualifiers: Septic arthritis location: foot Septic arthritis organism: due to unspecified organism Laterality: left Qualified Code(s): M00.9 - Pyogenic arthritis, unspecified Code(s): M00.9 - Pyogenic arthritis, unspecified Status: Deleted Assessment and Plan: Left knee septic arthritis, status post I&D. Orthopedic surgery is following. Appreciate recommendation. Continue IV antibiotics. (6) Lactic acidosis: Code(s): E87.2 - Acidosis Status: Acute Assessment and Plan: Resolved. Patient hemodynamically stable. Lactate elevated at presentation at 3.1. Repeat lactate is 1.2. Patient is stable hemodynamically. (7) Type 2 diabetes mellitus with hyperglycemia: Qualifiers: Diabetes mellitus equipment operator intermodal yard insulin use: without equipment operator intermodal yard use Qualified Code(s): E11.65 - Type 2 diabetes mellitus with hyperglycemia Code(s): E11.65 - Type 2 diabetes mellitus with hyperglycemia Status: Acute Assessment and Plan:
[2021-07-01] MEDS: oxyCODONE HCL (*CRX) 5 MG TAB IR PO (21:30)
[2021-07-01] MEDS: oxyCODONE/ACETAMINOPHEN (*CRX) 5-325 MG TABLET 1 TABLET PO (21:32)
[2021-07-01 21:47] LABS: Glucose Point of Care 233 mg/dl (65-105)
[2021-07-02 00:39] VITALS: O2SAT 98
[2021-07-02 03:46] VITALS: BP 113/64; PULSE 81; RESP 16; TEMP 36.6; O2SAT 100
[2021-07-02] MEDS: HEPARIN SODIUM 5,000 UNITS/ML VIAL 5000 UNITS SUB-Q ×2 (05:47→13:14)
[2021-07-02] MEDS: CLINDAMYCIN 900 MG/D5W 50 ML 900 MG/50 ML PIGGYBACK 50 MG IVPB ×2 (05:47→13:13)
[2021-07-02] MEDS: oxyCODONE HCL (*CRX) 5 MG TAB IR PO (05:48)
[2021-07-02] MEDS: oxyCODONE/ACETAMINOPHEN (*CRX) 5-325 MG TABLET 1 TABLET PO (05:48)
[2021-07-02 06:02] LABS: Basophils Absolute Auto 0.1 K/mm3 (0.0-0.1); Basophils Percent Auto 0.7 % (0.2-1.2); Eosinophils Absolute Auto 0.1 K/mm3 (0-0.3); Eosinophils Percent Auto 1.1 % (0-4.4); Hematocrit 38.9 % (42.0-52.0); Hemoglobin 12.5 g/dL (14.0-18.0); Immature Granulocyte Percent A 1.2 % (0-0.5); Lymphocytes Absolute Auto 1.68 K/mm3 (0.9-3.2); Lymphocytes Percent Auto 20.7 % (18.3-44.2); Mean Corpuscular HGB Conc 32.1 g/dl (32-36); Mean Corpuscular Hemoglobin 29.1 pg (26-34); Mean Corpuscular Volume 90.5 fl (80-100); Mean Platelet Volume 8.8 fl (7.4-10.4); Monocytes Absolute Auto 0.7 K/mm3 (0.1-0.6); Monocytes Percent Auto 8.2 % (2.6-8.5); Neutrophils Absolute Auto 5.5 K/mm3 (1.3-6.7); Neutrophils Percent Auto 68.1 % (45.5-73.1); Platelet Count Result 478 k/mm3 (150-375); Red Cell Distribution Width 13.7 % (11.5-14.5); White Blood Count 8.1 K/mm3 (4.5-10.0)
[2021-07-02 06:31] LABS: Anion Gap 6 mmol/L (8-16); Blood Urea Nitrogen 19 mg/dL (9-20); Calcium 9.9 mg/dL (8.4-10.2); Carbon Dioxide 32 mmol/L (22-30); Chloride 96 mmol/L (98-107); Estimated CRCL calculation 108 ml/min; Estimated Glomerular Filt Rate > 60; Glucose 225 mg/dL (65-110); Potassium 5.3 mmol/L (3.4-5.0); Sodium 134 mmol/L (137-145)
[2021-07-02 06:47] LABS: Erythrocyte Sedimentation Rate 42 mm/hr (0-20)
[2021-07-02 07:05] LABS: CRP 17.7 mg/dL (<1.0)
[2021-07-02 08:00] VITALS: PULSE 92; RESP 16; O2SAT 98
[2021-07-02 08:32] LABS: Glucose Point of Care 218 mg/dl (65-105)
--- NOTE | 2021-07-02 08:35 | PM.IMPN ---
Progress Note: A&P Assessment and Plan (1) Sepsis: Qualifiers: Sepsis acute organ dysfunction status: with acute organ dysfunction Sepsis type: sepsis due to unspecified organism Severe sepsis acute organ dysfunction type: encephalopathy Severe sepsis shock status: without septic shock Qualified Code(s): A41.9 - Sepsis, unspecified organism; R65.20 - Severe sepsis without septic shock; G93.40 - Encephalopathy, unspecified Code(s): A41.9 - Sepsis, unspecified organism Status: Acute Assessment and Plan: Patient underwent incision and drainage of chest superficial fluid collection on June 27, 2021. He is status post Left Knee Incision and Drainage with Synovectomy, Right Foot Diabetic Foot Metatarsophalangeal Joint Ulcer Debridement on June 28, 2021. He is improving clinically. He remains stable and afebrile. WBC count is trending down and now plateauing. CRP is plateauing around 15.. He is a little bit tachycardic while on low-dose metoprolol. Will increase metoprolol. On admission patient met sepsis criteria. Currently being treated for with right ankle wound, was found to have fluid collection to the the left knee which has been drained, and similar fluid collection found on the anterior chest. Blood culture and synovial fluid cultures are growing Streptococcus pneumoniae. Wound culture is growing peptostreptococcus and MRSA. Patient was appropriately started on daptomycin and zosyn. Reimaging of the fluid collection of the anterior chest suggest phlegmon versus abscess; although imaging supports a support a collection superficial to the mediastinum there is an ongoing concern of about the possibility of mediastinitis, and arrangement were made to transfer the patient to higher level of care. Unfortunately due to the current pandemic, patient is to remain in our facility while awaiting for a bed. He is currently at waitlisted at [facility]. Continue IV antibiotic. Mild confusion is likely his baseline. Avoid sedative hypnotic medication. (2) Cellulitis of right foot: Code(s): L03.115 - Cellulitis of right lower limb Status: Acute Assessment and Plan: Current continue wound care and IV antibiotics. Currently blood culture growing Streptococcus pneumonia. Repeat blood culture from June 20, 2021 and 06/23/2021 are unrevealing. (3) Atrial fibrillation with RVR: Code(s): I48.91 - Unspecified atrial fibrillation Status: Acute Assessment and Plan: Patient was briefly on amiodarone drip. He converted to normal sinus rhythm. Per Cardiology recommendation was started on low-dose metoprolol 12.5 mg p.o. b.i.d. he is tachycardic and stable. We will increase metoprolol to 25 in 12.5 mg p.o. b.i.d.. (4) Hyponatremia: Code(s): E87.1 - Hypo-osmolality and hyponatremia Status: Acute Assessment and Plan: mild hyponatremia with a serum sodium of 132 (5) Lactic acidosis: Code(s): E87.2 - Acidosis Status: Acute Assessment and Plan: Resolved. Patient hemodynamically stable. Lactate elevated at presentation at 3.1. Repeat lactate is 1.2. Patient is stable hemodynamically. (6) Type 2 diabetes mellitus with hyperglycemia: Qualifiers: Diabetes mellitus longterm insulin use: without long term care phlebotomist use Qualified Code(s): E11.65 - Type 2 diabetes mellitus with hyperglycemia Code(s): E11.65 - Type 2 diabetes mellitus with hyperglycemia Status: Acute Assessment and Plan: Currently patient is being managed with insulin sliding scale and glargine. Fasting blood glucose 149. Accu-Chek improving in the 143-220 range. Oral intake is improving. Continue Glargine 30 units daily. Continue insulin sliding scale coverage (7) Metabolic encephalopathy: Code(s): G93.41 - Metabolic encephalopathy Status: Acute Assessment and Plan: Likely secondary to sepsis, sedative medication. Patient is slowly improvin
[2021-07-02] MEDS: NICOTINE (*PBKC) 21 MG PATCH 1 PATCH TRANSDERM (09:48)
[2021-07-02 09:49] VITALS: PULSE 81
[2021-07-02] MEDS: METOPROLOL TARTRATE 25 MG TABLET PO (09:49)
[2021-07-02] MEDS: LIDOCAINE 5% PATCH 2 PATCH TRANSDERM (09:50)
[2021-07-02] MEDS: SILVERGEL (ELTA) 45 ML 1 APPLIC TOPICAL (09:51)
[2021-07-02] MEDS: INSULIN GLARGINE (*BKC) 100 UNITS/ML 30 UNITS SUB-Q (09:57)
[2021-07-02] MEDS: INSULIN ASPART (*BKC) 100 UNITS/ML SUB-Q ×2 (09:58→12:15)
[2021-07-02 10:06] VITALS: BP 109/62; PULSE 92; RESP 16; TEMP 36.4; O2SAT 98
[2021-07-02 11:51] LABS: Glucose Point of Care 239 mg/dl (65-105)
[2021-07-02] MEDS: DAPTOMYCIN IVPB (12:12)
[2021-07-02] MEDS: SODIUM CHLORIDE 0.9% IVPB (12:12)
[2021-07-02 14:36] VITALS: BP 112/68; PULSE 81; RESP 18; TEMP 36.1; O2SAT 100
--- NOTE | 2021-07-02 14:46 | PC.NURSE ---
Pt neck wound cleaned, packed and changed today. Pt pulled out the packing & gauze and reapplied the tape. I asked the patient to allow me to change the dressing. Pt became verbally aggressive, pulled off the mirror on his table tray and started swinging it around. Tech was at the bedside getting ready to take vitals. Tech was instructed to leave the room. Dressing was left as patient had applied it.
[2021-07-02 16:54] LABS: Glucose Point of Care 170 mg/dl (65-105)
[2021-07-02 17:00] LABS: HIV 1/2 Ab P24 Ag Result Negative (Negative)
[2021-07-02 17:11] LABS: EDCOVIDSCREEN Negative (Negative)
--- NOTE | 2021-07-02 18:32 | PM.TDS ---
Transfer Discharge Sum: Prov Provider Date of admission: 06/19/21 00:38 Primary care physician: Miguelito AlbrechtPatricia Admitting clinician: Jessi Alonso DO Consults: 06/19/21 Consult to Physician Routine Comment: Consulting Provider: Homer Alvarez Reason for consultation: left knee effusion, right foot infection Has provider been notified: Yes Wound/ET Consult Routine Reason for Consult:: Right diabetic foot wound 06/20/21 09:16 Consult to Physician Routine Comment: spoke to Laura Romero [phone] (ER,) Consulting Provider: Ana Rosa Romero call centre supervisor/MD group to consult: Cardiology Reason for consultation: Septecemia, +joint infection, went into Afib RVR overnight, on Amiodrip Has provider been notified: Yes 06/23/21 Consult to Physician Routine Comment: called exchange and notified them of consult Consulting Provider: Dawson Ramirez call centre supervisor/MD group to consult: Surgery Reason for consultation: Anterior chest fluid collection; eval for drainage Has provider been notified: Yes DS: Admitting Diagnosis Discharge Date 07/02/21 Admitting Diagnosis (1) Sepsis: Qualifiers: Sepsis acute organ dysfunction status: with acute organ dysfunction Sepsis type: sepsis due to unspecified organism Severe sepsis acute organ dysfunction type: encephalopathy Severe sepsis shock status: without septic shock Qualified Code(s): A41.9 - Sepsis, unspecified organism; R65.20 - Severe sepsis without septic shock; G93.40 - Encephalopathy, unspecified Code(s): A41.9 - Sepsis, unspecified organism Status: Acute (2) Hyponatremia: Code(s): E87.1 - Hypo-osmolality and hyponatremia Status: Acute (3) Cellulitis of right foot: Code(s): L03.115 - Cellulitis of right lower limb Status: Acute (4) Septic arthritis: Qualifiers: Laterality: left Septic arthritis location: knee Septic arthritis organism: due to unspecified organism Qualified Code(s): M00.9 - Pyogenic arthritis, unspecified Code(s): M00.9 - Pyogenic arthritis, unspecified Status: Acute (5) Lactic acidosis: Code(s): E87.2 - Acidosis Status: Acute (6) Type 2 diabetes mellitus with hyperglycemia: Qualifiers: Diabetes mellitus manager terminal insulin use: without manager terminal use Qualified Code(s): E11.65 - Type 2 diabetes mellitus with hyperglycemia Code(s): E11.65 - Type 2 diabetes mellitus with hyperglycemia Status: Acute (7) Metabolic encephalopathy: Code(s): G93.41 - Metabolic encephalopathy Status: Acute DS: Discharge Diagnosis Discharge Diagnosis (1) MRSA cellulitis of right foot: Code(s): L03.115 - Cellulitis of right lower limb; B95.62 - Methicillin resistant Staphylococcus aureus infection as the cause of diseases classified elsewhere Status: Acute (2) Bacteremia due to Streptococcus pneumoniae: Code(s): R78.81 - Bacteremia; B95.3 - Streptococcus pneumoniae as the cause of diseases classified elsewhere Status: Acute (3) DJD of AC (acromioclavicular) joint: Code(s): M19.019 - Primary osteoarthritis, unspecified shoulder Status: Acute (4) Abscess of sternal region: Code(s): L02.213 - Cutaneous abscess of chest wall Status: Acute (5) Septic arthritis of right acromioclavicular joint: Code(s): M00.9 - Pyogenic arthritis, unspecified Status: Acute (6) Septic arthritis of left sternoclavicular joint: Code(s): M00.9 - Pyogenic arthritis, unspecified Status: Acute (7) Abscess of neck: Code(s): L02.11 - Cutaneous abscess of neck Status: Acute (8) Abscess of chest: Code(s): J86.9 - Pyothorax without fistula Status: Acute (9) Atrial fibrillation with RVR: Code(s): I48.91 - Unspecified atrial fibrillation Status: Acute (10) Septic arthritis of knee, left: Qualifiers: Septic arthritis organism: streptococc
--- NOTE | 2021-07-25 09:02 | P.PNIM_ITS ---
Progress Note: A&P Assessment and Plan (1) MRSA cellulitis of right foot: Code(s): L03.115 - Cellulitis of right lower limb; B95.62 - Methicillin resistant Staphylococcus aureus infection as the cause of diseases classified elsewhere Status: Acute (2) Bacteremia due to Streptococcus pneumoniae: Code(s): R78.81 - Bacteremia; B95.3 - Streptococcus pneumoniae as the cause of diseases classified elsewhere Status: Acute (3) DJD of AC (acromioclavicular) joint: Code(s): M19.019 - Primary osteoarthritis, unspecified shoulder Status: Acute (4) Abscess of sternal region: Code(s): L02.213 - Cutaneous abscess of chest wall Status: Acute (5) Septic arthritis of right acromioclavicular joint: Code(s): M00.9 - Pyogenic arthritis, unspecified Status: Acute (6) Septic arthritis of left sternoclavicular joint: Code(s): M00.9 - Pyogenic arthritis, unspecified Status: Acute (7) Abscess of neck: Code(s): L02.11 - Cutaneous abscess of neck Status: Acute (8) Abscess of chest: Code(s): J86.9 - Pyothorax without fistula Status: Acute (9) Atrial fibrillation with RVR: Code(s): I48.91 - Unspecified atrial fibrillation Status: Acute Assessment and Plan: Patient was briefly on amiodarone drip. He converted to normal sinus rhythm. Per Cardiology recommendation was started on low-dose metoprolol 12.5 mg p.o. b.i.d. he is tachycardic and stable. We will increase metoprolol to 25 in 12.5 mg p.o. b.i.d.. (10) Septic arthritis of knee, left: Qualifiers: Septic arthritis organism: streptococcal Qualified Code(s): M00.262 - Other streptococcal arthritis, left knee Code(s): M00.9 - Pyogenic arthritis, unspecified Status: Acute (11) Metabolic encephalopathy: Code(s): G93.41 - Metabolic encephalopathy Status: Acute Assessment and Plan: Likely secondary to sepsis, sedative medication. Patient is slowly improving. Intermittent agitation and confusion requiring bedside sitter. Single dose haloperidol even in the early hours of the day. (12) Lactic acidosis: Code(s): E87.2 - Acidosis Status: Acute Assessment and Plan: Resolved. Patient hemodynamically stable. Lactate elevated at presentation at 3.1. Repeat lactate is 1.2. Patient is stable hemodynamically. (13) Sepsis: Qualifiers: Sepsis type: sepsis due to unspecified organism Sepsis acute organ dysfunction status: with acute organ dysfunction Severe sepsis acute organ dysfunction type: encephalopathy Severe sepsis shock status: without septic shock Qualified Code(s): A41.9 - Sepsis, unspecified organism; R65.20 - Severe sepsis without septic shock; G93.40 - Encephalopathy, unspecified Code(s): A41.9 - Sepsis, unspecified organism Status: Acute Assessment and Plan: Patient underwent incision and drainage of chest superficial fluid collection on June 27, 2021. He is status post Left Knee Incision and Drainage with Synovectomy, Right Foot Diabetic Foot Metatarsophalangeal Joint Ulcer Debridement on June 28, 2021. He is improving clinically. He remains stable and afebrile. WBC count is trending down and now plateauing. CRP is plateauing around 15.. He is a little bit tachycardic while on low-dose metoprolol. Will increase metoprolol. On admission patient met sepsis criteria. Currently being treated for with right ankle wound, was found to have fluid collection to the the left knee which has been drained, and similar fluid collection found on the anterior chest. Blood
== END 2021-07-02 19:17 | disposition short-term general hospital (02) | DRG 710 ==
LOC: ANHED 22:29 → ANH2MED 06-19 03:15 → ANHIMU 06-20 13:07 → ANH2MED 06-25 12:32 → ANHIMU 07-03 12:21
PROVIDERS: Emergency Medicine; Hospitalist; Internal Medicine; Internal Medicine Cardiovascular Disease; Orthopaedic Surgery; Physician Assistant; Surgery; Admitting Provider Internal Medicine; Emergency Provider Emergency Medicine; PCP Internal Medicine Infectious Disease; Visit Provider Internal Medicine
PROC: 0J960ZZ Drainage of Chest Subcutaneous Tissue and Fascia, Open Approach (ICD-10-PCS; principal; 2021-06-26 12:00)
PROC: 0S9D0ZX Drainage of Left Knee Joint, Open Approach, Diagnostic (ICD-10-PCS; principal; 2021-06-28 16:30)
DX: A40.3 Sepsis due to Streptococcus pneumoniae (principal); E11.621 Type 2 diabetes mellitus with foot ulcer; F15.10 Other stimulant abuse, uncomplicated; E11.42 Type 2 diabetes mellitus with diabetic polyneuropathy; J86.9 Pyothorax without fistula; R65.20 Severe sepsis without septic shock; Z86.14 Personal history of Methicillin resistant Staphylococcus aureus infection; Z20.822 Contact with and (suspected) exposure to COVID-19; E78.00 Pure hypercholesterolemia, unspecified; E66.9 Obesity, unspecified; Z68.28 Body mass index [BMI] 28.0-28.9, adult; F12.10 Cannabis abuse, uncomplicated; F17.210 Nicotine dependence, cigarettes, uncomplicated; Z56.0 Unemployment, unspecified; Z91.14 Patient's other noncompliance with medication regimen; G93.41 Metabolic encephalopathy; E87.1 Hypo-osmolality and hyponatremia; L03.115 Cellulitis of right lower limb; E87.2 Acidosis; E11.65 Type 2 diabetes mellitus with hyperglycemia; L02.611 Cutaneous abscess of right foot; M00.262 Other streptococcal arthritis, left knee; B95.4 Other streptococcus as the cause of diseases classified elsewhere; L97.516 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 without evidence of necrosis; Z79.4 Long term (current) use of insulin; I67.2 Cerebral atherosclerosis; I48.91 Unspecified atrial fibrillation; E11.52 Type 2 diabetes mellitus with diabetic peripheral angiopathy with gangrene; I96 Gangrene, not elsewhere classified; L02.213 Cutaneous abscess of chest wall
CPT/HCPCS: 20610; 36415; 36600; 70450; 70490; 70491; 71045; 71046; 71260; 73030; 73562; 73630; 73720; 80048; 80053; 80307; 82375; 82805; 82948; 83036; 83050; 83605; 83690; 83735; 84439; 84443; 84480; 84484; 85025; 85027; 85610; 85652; 85730; 86140; 86703; 87040; 87070; 87075; 87076; 87077; 87147; 87181; 87184; 87186; 87205; 87426; 89051; 89060; 90715; 93005; 93306; 96361; 96374; 96375; 99285; A9270; A9577; C9803; G0432; J0131; J0282; J0878; J1100; J1170; J1580; J1630; J1644; J1815; J1885; J2060; J2250; J2270; J2370; J2405; J2543; J2704; J3010; J3360; J7030; J7120; Q9967

== ENCOUNTER 2021-07-27 18:28 | Emergency (ER) | payer BC, SELFPAY ==
--- NOTE | ~2021-07-27 | XR_ITS ---
EXAMINATION: XR chest 2V DATE: 07/27/2021 19:11 INDICATION: Cough TECHNIQUE: AP and lateral views of the chest are obtained. COMPARISON: 06/20/2021 FINDINGS: There is minimal opacification of the left lung apex. No pleural effusion or pneumothorax i s identified. A left-sided chest drain courses anteriorly towards the left lung apex. There are surgi luisa clips of the left chest wall. The cardiomediastinal silhouette is normal. There is moderate thora cic spondylosis. IMPRESSION: 1. No acute cardiopulmonary abnormality. Reviewed, dictated and finalized at location F. DENTIAL BUILDING INSPECTOR
[2021-07-27 18:34] VITALS: BP 121/81; PULSE 83; RESP 20; TEMP 36.9; O2SAT 100
--- NOTE | 2021-07-27 19:01 | ED.GENADULT ---
HPI - General Adult General Chief complaint: Unspecified Stated complaint: Drain Tube Fell Out Time Seen by Provider: 07/27/21 18:30 Source: patient Mode of arrival: ambulatory Limitations: no limitations History of Present Illness HPI narrative: Patient is a 55-year-old male complaining of draining around his chest tube and it is loose and looks like it might be out of place . Patient states that he had a large abscess on his left chest wall that required surgical drainage, was at [facility], surgery done by Dr. Muñoz. Patient also states that he had some nausea earlier but now resolved. Patient denies any shortness of breath, abdominal pain, nausea, vomiting, diarrhea, fever or chills. Related Data Allergies Allergy/AdvReac Type Severity Reaction Status Date / Time vancomycin AdvReac Other Verified 07/27/21 18:41 Review of Systems Review of Systems: All systems reviewed & are unremarkable except as noted in HPI and below Constitutional: Constitutional: Denies body ache(s), Denies chills, Denies excessive sweating, Denies fatigue, Denies fever(s), Denies headache(s), Denies lethargy, Denies malaise, Denies weakness and Denies weight loss Eyes: Eyes: Denies blurry vision, Denies change in vision and Denies loss of vision ENT: Denies dizziness, Denies ear discharge, Denies headache(s), Denies lip swelling, Denies epistaxis, Denies nasal congestion, Denies neck pain, Denies throat swelling and Denies tongue swelling Cardiovascular: Cardiovascular: Denies chest pain, Denies chest pain at rest, Denies chest pain with activity, Denies diaphoresis, Denies rapid heart rate, Denies edema, Denies irregular heart rhythm, Denies lightheadedness, Denies palpitations, Denies dyspnea and Denies dyspnea on exertion Respiratory: Respiratory: Denies chest congestion, Denies cough, Denies hemoptysis, Denies dyspnea and Denies dyspnea on exertion Gastrointestinal: Gastrointestinal: Denies abdominal pain, Denies melena, Denies hematochezia, Denies diarrhea, Denies vomiting and Denies hematemesis Musculoskeletal: Musculoskeletal: Denies abnormal gait, Denies deformity, Denies joint swelling, Denies limited range of motion, Denies neck pain and Denies numbness Neurologic: Denies Abnormal speech present, Denies abnormal gait, Denies confusion, Denies dizziness, Denies headache(s), Denies focal weakness, Denies loss of vision, Denies numbness, Denies Other visual disturbances, Denies Sensory deficit (Neuro) and Denies weakness Psychiatric: Psychiatric: Denies confusion, Denies depression, Denies auditory hallucinations, Denies homicidal ideation and Denies suicidal ideation Endocrine: Endocrine: Denies cold intolerance, Denies excessive sweating, Denies fatigue, Denies heat intolerance and Denies palpitations Hematologic/Lymphatic: Hematologic/Lymphatic: Denies easy bleeding and Denies easy bruising Allergic/Immunologic: Allergic/Immunologic: Denies lip swelling, Denies throat swelling and Denies tongue swelling PMFSH Past Medical History Medical History Abscess of chest Abscess of right foot (10/2020) Amphetamine abuse Patient is vague as to how often he uses. Diabetic peripheral neuropathy DJD of AC (acromioclavicular) joint History of MRSA infection Hypercholesterolemia Obesity Polysubstance abuse Including methamphetamines and marijuana. Tobacco dependence Type 2 diabetes mellitus Hemoglobin A1c greater than 11 April 2021 Surgical History Surgical History History of carpal tunnel release (~09/07/20) Left-sided per Dr. Escobedo. History of colonoscopy (~10/2008) Negative aside from internal hemorrhoidal tissue per Dr. Damico. History of incision and drainage (10/04/20) Complex incision and drainage of right diabetic foot ulcer per Dr. Zhao. Status post debridement (~12/21/19) Excisional debridement of skin, subcutaneou
[2021-07-27] MEDS: SODIUM CHLORIDE 0.9% IV 1,000 ML 999 ML IV CONT (19:16)
[2021-07-27 19:19] LABS: Basophils Absolute Auto 0.1 K/mm3 (0.0-0.1); Basophils Percent Auto 0.7 % (0.2-1.2); Eosinophils Absolute Auto 0.1 K/mm3 (0-0.3); Eosinophils Percent Auto 1.5 % (0-4.4); Hematocrit 37.7 % (42.0-52.0); Immature Granulocyte Absolute 0.03 K/mm3 (0.00-0.031); Immature Granulocyte Percent A 0.4 % (0-0.5); Lymphocytes Absolute Auto 1.94 K/mm3 (0.9-3.2); Lymphocytes Percent Auto 29.1 % (18.3-44.2); Mean Corpuscular HGB Conc 31.8 g/dl (32-36); Mean Corpuscular Hemoglobin 28.9 pg (26-34); Mean Corpuscular Volume 90.8 fl (80-100); Mean Platelet Volume 8.4 fl (7.4-10.4); Monocytes Absolute Auto 0.4 K/mm3 (0.1-0.6); Monocytes Percent Auto 5.8 % (2.6-8.5); Neutrophils Absolute Auto 4.2 K/mm3 (1.3-6.7); Neutrophils Percent Auto 62.5 % (45.5-73.1); Platelet Count Result 344 k/mm3 (150-375); Red Blood Count 4.15 M/mm3 (4.6-6.20); Red Cell Distribution Width 14.2 % (11.5-14.5); White Blood Count 6.7 K/mm3 (4.5-10.0)
[2021-07-27 19:46] LABS: Alanine Aminotransferase 13 U/L (4-50); Albumin Level 3.8 g/dL (3.5-5.1); Alkaline Phosphatase 142 U/L (38-126); Anion Gap 9 mmol/L (8-16); Aspartate Amino Transferase 25 U/L (17-59); Bilirubin,Total 0.5 mg/dL (0.2-1.3); Blood Urea Nitrogen 18 mg/dL (9-20); Calcium 9.6 mg/dL (8.4-10.2); Carbon Dioxide 29 mmol/L (22-30); Chloride 101 mmol/L (98-107); Estimated Glomerular Filt Rate > 60; Glucose 91 mg/dL (65-110); Potassium 4.4 mmol/L (3.4-5.0); Sodium 139 mmol/L (137-145)
[2021-07-27 20:00] VITALS: BP 118/62; PULSE 70; RESP 16; TEMP 36.4; O2SAT 96
--- NOTE | 2021-07-27 21:06 | PC.NURSE ---
BRYANNA DRAIN REMOVED PER ERP. 10 ML OF SEROSANGUINEOUS FLUID NOTED IN BULB OF DRAIN
--- NOTE | 2021-07-27 21:07 | PC.NURSE ---
4X4 APPLIED TO BRYANNA SITE
[2021-07-27 21:08] VITALS: BP 114/64; PULSE 74; RESP 16; TEMP 36.5; O2SAT 95
== END 2021-07-27 21:10 | disposition home or self-care (01) ==
PROVIDERS: Emergency Provider Emergency Medicine; PCP Internal Medicine Infectious Disease
DX: Z48.03 Encounter for change or removal of drains (principal); R11.0 Nausea; E11.42 Type 2 diabetes mellitus with diabetic polyneuropathy; E78.00 Pure hypercholesterolemia, unspecified; E66.9 Obesity, unspecified; M19.019 Primary osteoarthritis, unspecified shoulder; F17.210 Nicotine dependence, cigarettes, uncomplicated; Z86.14 Personal history of Methicillin resistant Staphylococcus aureus infection
CPT/HCPCS: 36415; 71046; 80053; 85025; 96360; 99283; J7030

== ENCOUNTER 2021-08-20 14:33 | Inpatient (IN) | payer BC, SELFPAY ==
--- NOTE | ~2021-08-20 | XR_ITS ---
XR chest 1V portable DATE: 08/20/2021 15:50 INDICATION: Preoperative examination TECHNIQUE: 2 portable upright AP views of the chest on 08/20/2021 at 1541 hours COMPARISON: July 27, 2021 2 view chest FINDINGS: Normal heart size. No hilar or mediastinal enlargement. No pulmonary infiltrate or consolid ation, pleural effusion or pulmonary vascular congestion or pneumothorax. Mild scoliosis of the thoracic spine and degenerative spurring, particularly lower thoracic region. IMPRESSION: No active cardiopulmonary disease Dextro scoliosis and degenerative spurring of the thoracic spine Reviewed, dictated and finalized at location A.
--- NOTE | ~2021-08-20 | XR_ITS ---
XR foot RT min 3V DATE: 08/20/2021 15:50 INDICATION: Diabetic wound of the medial right foot TECHNIQUE: 4 views COMPARISON: MRI right foot 06/18/2021 right foot FINDINGS: Since 06/18/2021 there is an ulceration at the medial aspect of the first metatarsal head an d interval near complete obliteration of the first metatarsophalangeal joint space, suggesting septic arthritis. There is some interval osteopenia of the first metatarsal head and base of the proximal p halanx of the first digit; osteomyelitis is not excluded. Small linear metallic foreign body overlies the distal first digit. No fracture, dislocation, periosteal reaction or bone destruction is noted otherwise. Prominent plantar and posterior calcaneal enthesopathy without associated erosive change or periostit is. IMPRESSION: Soft tissue ulceration at medial aspect of first metatarsal head Obliteration of first metatarsal phalangeal joint space suggesting septic arthritis Osteopenia of apposing first metatarsal head and base of proximal phalanx of first digit; osteomyelit is is not excluded Prominent plantar and posterior calcaneal enthesopathy Reviewed, dictated and finalized at location A. IMPRESSION: Soft tissue ulceration at medial aspect of first metatarsal head Obliteration of first metatarsal phalangeal joint space suggesting septic arthr itis Osteopenia of apposing first metatarsal head and base of proximal phalanx of fi rst digit; osteomyelitis is not excluded Prominent plantar and posterior calcaneal enthesopathy
[2021-08-20 14:44] VITALS: BP 109/65; PULSE 91; RESP 18; TEMP 36.1; O2SAT 100
--- NOTE | 2021-08-20 15:44 | ED.GENADULT ---
HPI - General Adult General Chief complaint: Extremity Problem,Nontraumatic Stated complaint: feet issues Time Seen by Provider: 08/20/21 15:01 Source: patient Mode of arrival: EMS Limitations: no limitations History of Present Illness HPI narrative: Patient is 55 years old white male came with increased pain and discharge of the right diabetic ulcer of the right foot. Patient should follow by wound care clinic over the last 4 weeks and his is telling me that Related Data Allergies Allergy/AdvReac Type Severity Reaction Status Date / Time vancomycin AdvReac Other Verified 07/27/21 18:41 Review of Systems Review of Systems: CONSTITUTIONAL: Denies fever, chills, or sweats. EYES: Denies visual changes, redness, or discharge. ENT: Denies rhinorrhea, congestion, sore throat, or otalgia. CARDIOVASCULAR: Denies chest pain, palpitations, or edema. RESPIRATORY: Denies cough or dyspnea. GASTROINTESTINAL: Denies abdominal pain, nausea, vomiting, or diarrhea. GENITOURINARY: Denies dysuria or hematuria. SKIN: Patient diabetic ulcer right foot MUSCULOSKELETAL: Denies back pain, joint pain, or myalgia. NEUROLOGIC: Denies headache, numbness, or weakness. PSYCHIATRIC: Denies anxiety or depression. [facility] Past Medical History Medical History Abscess of chest Abscess of right foot (10/2020) Amphetamine abuse Patient is vague as to how often he uses. Diabetic peripheral neuropathy DJD of AC (acromioclavicular) joint History of MRSA infection Hypercholesterolemia Obesity Polysubstance abuse Including methamphetamines and marijuana. Tobacco dependence Type 2 diabetes mellitus Hemoglobin A1c greater than 11 April 2021 Surgical History Surgical History History of carpal tunnel release (~09/07/20) Left-sided per Dr. Escobedo. History of colonoscopy (~10/2008) Negative aside from internal hemorrhoidal tissue per Dr. Damico. History of incision and drainage (10/04/20) Complex incision and drainage of right diabetic foot ulcer per Dr. Zhao. Status post debridement (~12/21/19) Excisional debridement of skin, subcutaneous tissue, and muscle of a 4 cm2 ulcer of the plantar surface of the right foot with removal foreign body under fluoroscopy per Dr. Raymundo. Family History Family History Other Carcinoma of colon Diabetes mellitus Social History Social History Social History: Surrogate decision maker: Maxwell Webster, spouse. Code status: Full code. Smoking packs per day: 0.5 Smoking cigarettes per day: 10.0 Years smoked: 20 Smoking pack-years: 10.00 Smoking status: Current every day smoker Tobacco type: cigarettes Alcohol intake: current Alcohol use details: Drinks several alcoholic beverages a month. Substance use: current Substance use type: marijuana, opiates and methamphetamine Other substance usage details: Previous history of methamphetamine use. Additional living arrangements comments: Lives in [place] with his spouse. Additional occupation/education comments: Unemployed. Spiritual care concerns: No Exam Narrative: General appearance: Well-developed, well-nourished Skin: Right foot showed large open ulcer at the bottom of the front of the right foot, surrounded by erythema, warmth to touch, with discharge. Head: Normocephalic, nontraumatic Eyes: Clear conjunctiva ENT: Oropharynx normal, ears normal, nose normal Neck: Supple, nontender Chest and respiratory: Airway patent, no respiratory distress, no accessory muscle use Heart: Regular rate/rhythm Abdomen: Soft, nontender, no organomegaly, quiet bowel sounds Vascular: Normal peripheral pulses, normal capillary refill. Musculoskeletal: Normal range of motion, nontender back Neurologic: Alert and oriented ?3, MEDICAL INFORMATION SPECIALIST is normal as
--- NOTE | 2021-08-20 15:45 | PC.NURSE ---
Pt left lower leg and foot cold to touch. Pedal pulse palpated and heard by dopplar with strong pulses. Sites marked. EDP notified.
--- NOTE | 2021-08-20 16:00 | PM.IMHP ---
H&P: HPI History of Present Illness Date/Time: 08/20/21 16:00 Chief Complaint: Worsening right foot wound. Narrative: This is a 55-year-old male with type 2 diabetes mellitus and diabetic peripheral neuropathy who presented to the emergency department for evaluation of a worsening right foot wound. He is known to the hospitalist service from a fairly lengthy stay earlier this year in which he was admitted with septic arthritis of the left knee and cellulitis of the right foot around a chronic diabetic foot wound. He was bacteremic with both blood and synovial cultures growing Streptococcus pneumoniae and a right foot wound culture grew out Peptostreptococcus and methicillin-resistant Staphylococcus aureus. He underwent left knee joint incision and drainage with major synovectomy as well as right foot first ray debridement and first MTP joint I&D per Dr. Alvarez as well as and incision and drainage of an abscess of the anterior chest per Dr. Ramirez. Ultimately he was transferred to [facility] for higher level of care and consultation with cardiothoracic surgery where he had what sounds like an extensive debridement of the anterior chest wound after he was noted to have gas involving both sides of the chest and left anterior neck. He was discharged on antibiotics and he states compliance with those. He has not seen his doctors in follow-up as apparently there have been difficulties getting in touch with them. These last 5 days he has had increasing pain, redness, and swelling about the right foot wound and he decided to come in for evaluation today. He appears to have cellulitis once again around the diabetic right foot wound and he is being admitted in this setting. He denies fever, chills, sweats, nausea, and vomiting. He states that his glucose has been pretty well controlled however the last 5 days his numbers have been higher. Review of Systems Review of Systems: Twelve systems were reviewed and are negative except for as per HPI. [facility] Past Medical History Medical History (Updated 08/20/21 @ 21:11 by Jennifer Bliss PA-C) Amphetamine abuse Patient is vague as to how often he uses. Bacteremia due to Streptococcus pneumoniae (06/2021) With septic left knee and anterior chest abscess. Diabetic peripheral neuropathy History of MRSA infection Hypercholesterolemia Obesity Polysubstance abuse Including methamphetamines and marijuana. Tobacco dependence Type 2 diabetes mellitus Hemoglobin A1c was 6.1% on 08/20/2021. Surgical History Surgical History (Updated 08/20/21 @ 21:11 by Jennifer Bliss PA-C) History of carpal tunnel release (~09/07/20) Left-sided per Dr. Escobedo. History of colonoscopy (~10/2008) Negative aside from internal hemorrhoidal tissue per Dr. Damico. History of incision and drainage (10/04/20) -Complex incision and drainage of right diabetic foot ulcer per Dr. Zhao on 10/04/2020. -Incision and drainage of complicated sternal abscess on 06/26/[address] Ramirez. -Incision and drainage of left knee joint and debridement of right foot 1st ray wound on 06/28/[address] Alvarez. - Extensive incision and drainage of an anterior chest abscess at [facility] Status post debridement (~12/21/19) Excisional debridement of skin, subcutaneous tissue, and muscle of a 4 cm2 ulcer of the plantar surface of the right foot with removal foreign body under fluoroscopy per Dr. Raymundo. Family History Family History Other Carcinoma of colon Diabetes mellitus Social History Social History Social History: Surrogate decision maker: Maxwell Webster, spouse. Code status: Full code. Smoking packs per day: 1 Smoking cigarettes per day: 20.0 Years smoked: 20 Smoking pack-years: 20.00 Smoking status: Current every day smoker Tobacco type: cigarettes Second hand tobacco smoke exposure: No Alcohol intak
[2021-08-20 16:24] LABS: Basophils Percent Auto 0.6 % (0.2-1.2); Eosinophils Absolute Auto 0.2 K/mm3 (0-0.3); Hematocrit 42.1 % (42.0-52.0); Hemoglobin 13.1 g/dL (14.0-18.0); Immature Granulocyte Absolute 0.04 K/mm3 (0.00-0.031); Immature Granulocyte Percent A 0.6 % (0-0.5); Lymphocytes Percent Auto 31.1 % (18.3-44.2); Mean Corpuscular HGB Conc 31.1 g/dl (32-36); Mean Corpuscular Hemoglobin 28.4 pg (26-34); Mean Corpuscular Volume 91.1 fl (80-100); Mean Platelet Volume 8.7 fl (7.4-10.4); Monocytes Absolute Auto 0.4 K/mm3 (0.1-0.6); Monocytes Percent Auto 6.4 % (2.6-8.5); Neutrophils Percent Auto 58.3 % (45.5-73.1); Platelet Count Result 326 k/mm3 (150-375); Red Blood Count 4.62 M/mm3 (4.6-6.20); Red Cell Distribution Width 14.8 % (11.5-14.5); White Blood Count 6.8 K/mm3 (4.5-10.0)
[2021-08-20 16:38] LABS: Alanine Aminotransferase 12 U/L (4-50); Albumin Level 4.1 g/dL (3.5-5.1); Alkaline Phosphatase 151 U/L (38-126); Anion Gap 6 mmol/L (8-16); Aspartate Amino Transferase 22 U/L (17-59); Bilirubin,Total 0.1 mg/dL (0.2-1.3); Blood Urea Nitrogen 18 mg/dL (9-20); Calcium 9.5 mg/dL (8.4-10.2); Carbon Dioxide 31 mmol/L (22-30); Chloride 100 mmol/L (98-107); Estimated CRCL calculation 108 ml/min; Estimated Glomerular Filt Rate > 60; Glucose 147 mg/dL (65-110); Potassium 4.5 mmol/L (3.4-5.0); Sodium 137 mmol/L (137-145)
[2021-08-20 16:41] LABS: INR 0.9; Prothrombin Time 11.9 Seconds (11.1-14.7)
[2021-08-20 18:35] VITALS: BP 106/79; PULSE 91; RESP 16; O2SAT 100
[2021-08-20] MEDS: LINEZOLID 600 MG/300 ML 600 MG/300 ML SOLN 300 MG IVPB (18:36)
[2021-08-20 18:45] LABS: Hemoglobin A1C 6.1 % (<5.7)
--- NOTE | 2021-08-20 18:50 | PC.NURSE ---
This patient, Bob Webster JrKonstantin, was admitted to [facility] Surg Room 331-01. Patient/family oriented to hospital policies and general routines including ID bracelet, bed and alarms, visiting hours, pain management, procedures, bathroom and other care routines, personal items, smoking policy, room service/diet, and visiting hours. Information on how to activate the Rapid Response Team has been discussed. Patient/Family are encouraged to report perceived risks to care and to ask questions if they do not understand what they are told or what they should do.
[2021-08-20 18:58] VITALS: BP 133/75; PULSE 86; RESP 18; TEMP 35.6; O2SAT 100
[2021-08-20 18:58] LABS: Glucose Point of Care 149 mg/dl (65-105)
[2021-08-20] MEDS: SODIUM CHLORIDE 0.9% IV 1,000 ML 125 ML IV CONT (19:56)
[2021-08-20 21:58] VITALS: BP 106/60; PULSE 87; RESP 18; TEMP 36.6; O2SAT 100
[2021-08-21] MEDS: GABAPENTIN 300 MG CAPSULE PO ×3 (00:45→21:08)
[2021-08-21] MEDS: LINEZOLID 600 MG/300 ML 600 MG/300 ML SOLN 300 MG IVPB ×2 (05:13→18:10)
[2021-08-21 06:00] VITALS: BP 107/68; PULSE 79; RESP 16; TEMP 36.8; O2SAT 99
[2021-08-21 08:01] LABS: Glucose Point of Care 185 mg/dl (65-105)
[2021-08-21] MEDS: FAMOTIDINE 20 MG TABLET PO (08:40)
[2021-08-21 08:41] VITALS: PULSE 80
[2021-08-21] MEDS: METOPROLOL TARTRATE 25 MG TABLET PO (08:41)
--- NOTE | 2021-08-21 09:07 | PM.CNOR ---
Assessment and Plan Assessment and plan (1) Diabetic ulcer of right foot: Qualifiers: Diabetic foot ulcer location: toe Diabetes mellitus type: type 2 Non-pressure ulcer stage: with necrosis of bone Qualified Code(s): E11.621 - Type 2 diabetes mellitus with foot ulcer; L97.514 - Non-pressure chronic ulcer of other part of right foot with necrosis of bone Code(s): E11.621 - Type 2 diabetes mellitus with foot ulcer; L97.519 - Non-pressure chronic ulcer of other part of right foot with unspecified severity Status: Acute Assessment and Plan: History, exam and radiographs reviewed with the patient. Radiographs of the right foot revealed soft tissue ulceration at medial aspect of first metatarsal head, obliteration of first metatarsal phalangeal joint space suggesting septic arthritis, and osteopenia of apposing first metatarsal head and base of proximal phalanx of first digit. Ulceration with tendon exposure, necrotic and soft like tissue. Minimal new granulation tissue noted. Callus over the 5th MTP joint as well. Discussed nonoperative and operative treatment options with the patient. The patients questions were answered. Discussed I&D of right DFU with possible 1st Ray Amputation Risks of surgery including but not limited to neurovascular damage, wound complications, blood clot, pulmonary embolus, stroke, myocardial infarction, anesthetic risks up to and including were reviewed. Continued pain and possible dysfunction were explained. No guarantees were offered. The patient understands and wishes to proceed. Plan: Debridement right DFU with possible hallux amputation. Debridement of right lateral foot callus. Debridement of left plantar foot callus. NPO at midnight. Continue antibiotics per medicine team. WB on heel of right foot only. Post Op shoe. Elevate. Dry gauze dressing. (2) Diabetic ulcer of right foot associated with diabetes mellitus due to underlying condition: Code(s): E08.621 - Diabetes mellitus due to underlying condition with foot ulcer; L97.519 - Non-pressure chronic ulcer of other part of right foot with unspecified severity Status: Acute Assessment and Plan: Close diabetic control required for optimal healing. (3) Abscess of neck: Code(s): L02.11 - Cutaneous abscess of neck Status: Acute Assessment and Plan: Incision of chest well healed. No erythema. No drainage. No tenderness to touch. (4) Septic arthritis of knee, left: Qualifiers: Septic arthritis organism: streptococcal Qualified Code(s): M00.262 - Other streptococcal arthritis, left knee Code(s): M00.9 - Pyogenic arthritis, unspecified Status: Acute Assessment and Plan: Incision of left knee joint well healed as well. Mild knee joint effusion noted. No erythema or warmth. Patient does have a flexion contracture of approximately 20?. He reports pain. He does have underlying degenerative changes. Patient would likely benefit from physical therapy. May eventually benefit from aspiration injection with cortisone pending improvement in wound of the right foot. (5) Tobacco dependence: Code(s): F17.200 - Nicotine dependence, unspecified, uncomplicated Status: Chronic Assessment and Plan: Patient is currently a smoker. We discussed importance of smoking cessation due to elevated risks of postoperative complications worsening infections and poor wound healing. Additional Plan Reviewed radiographs, exam and history with attending MD and following surgeon, Dr. Finney. Agrees with plan of care. History of Present Illness HPI Consult date: 08/21/21 Requesting physician: Jennifer Bliss PA-C Consult reason: other (DFU ) Chief complaint: Diabetic foot Narrative: 55-year-old male readmitted to [facility] for a worsening right diabetic foot ulcer. Patient was previously admitted to [facility] in June initially for l
[2021-08-21 11:14] LABS: CRP 2.4 mg/dL (<1.0)
--- NOTE | 2021-08-21 11:42 | PCCCNOTE ---
On 08/21/21, the student, [Fidelina Jang ], provided care and completed [facility] documentation on this patient. I have reviewed the student's documentation and agree with the findings.
[2021-08-21 11:57] LABS: Glucose Point of Care 145 mg/dl (65-105)
--- NOTE | 2021-08-21 13:35 | PM.IMPN ---
Progress Note: A&P Additional Plan 55-year-old male with type 2 diabetes mellitus and diabetic peripheral neuropathy who presented to the emergency department for evaluation of a worsening right foot wound 1)Right Foot Wound: Appreciate wound care help Appreciate Orthopedics consult Plan for I&D of right DFU with possible 1st Ray Amputation Pain control c/w zosyn+Zyvox F/U cultures from OR 2)Diabetes Mellitus: BG check TID AC c/w SS insulin Adjust dose as needed 3)DVT ppx: SCD 4)Code:Full 5)Dispo:pending surgical intervention Time Spent With Patient Time with patient: 25 - 35 minutes Subjective Date/time seen: 08/21/21 13:35 no acute events overnight, awaiting to see orthopedic doctor Review of Systems Constitutional: Constitutional: Reports no additional constitutional complaints Eyes: Eyes: Reports no additional eye complaints ENT: Reports system reviewed and no additional complaints, except as documented Cardiovascular: Cardiovascular: Reports no additional cardiovascular complaints Respiratory: Respiratory: Reports no additional respiratory complaints Gastrointestinal: Gastrointestinal: Reports no additional gastrointestinal complaints Neurologic: Reports system reviewed and no additional complaints, except as documented Exam Const: General: comfortable and no acute distress HENMT: Mouth: Yes Abnormal oral and palatal mucosa present Eyes: Sclera: sclerae normal Pupils: Equal, round and reactive pupils present Neck: Neck: supple Resp: Auscultation: clear to auscultation bilaterally Cardio: Rate: regular rate Rhythm: regular rhythm GI: GI Palp: Yes Soft to palpation Auscultation: normal bowel sounds Skin: General skin exam: normal color Wounds: wounds noted (dressing over right foot) Neuro: Cognition (Neuro): normal cognition Objective Data Vital Signs Vital Signs: Vital Signs - 24 hr 08/20/21 14:44 08/20/21 18:35 08/20/21 18:58 Temperature 97.0 F L 96.1 F L Pulse Rate 91 91 86 Respiratory Rate 18 16 18 Blood Pressure 109/65 106/79 133/75 Pulse Oximetry 100 100 100 08/20/21 21:58 08/21/21 06:00 08/21/21 08:41 Temperature 97.9 F 98.3 F Pulse Rate 87 79 80 Respiratory Rate 18 16 Blood Pressure 106/60 107/68 Pulse Oximetry 100 99 Intake/Output Intake/Output: Intake & Output 08/18/21 08/19/21 08/20/21 08/21/21 23:59 23:59 23:59 23:59 Intake Total 50 872 Output Total 500 Balance 50 372 Meds/Results Medications: Active Medications Generic Name Dose Route Start Last Admin Trade Name Freq PRN Reason Stop Dose Admin Acetaminophen 650 mg 08/20/21 21:19 Acetaminophen 325 Mg Tablet PO Q6H PRN Mild Pain (1-3) or Fever Dextrose 12.5 gm 08/20/21 18:21 Dextrose 50% 25 Gm/50 Ml Syringe IV PUSH PRN PRN Hypoglycemia Protocol Famotidine 20 mg 08/21/21 09:00 08/21/21 08:40 Famotidine 20 Mg Tablet PO 20 mg DAILY LINO Administration Gabapentin 300 mg 08/20/21 21:00 08/21/21 08:40 Gabapentin 300 Mg Capsule PO 300 mg Q12HR LINO Administration Glucagon 1 mg 08/20/21 18:21 Glucagon For Inj 1 Mg Vial IM PRN PRN Hypoglycemia Protocol Glucose 15 gm 08/20/21 18:21 Glucose Oral Gel 15 Gm Of Glucse In 37.5 Gm Tube PO PRN PRN Hypoglycemia Protocol Linezolid 600 mg in 300 mls @ 300 mls/hr 08/21/21 06:00 08/21/21 08:53 Zyvox IVPB Infused Q12H LINO Infusion Piperacillin/Tazobactam/Dextrose 3.375 gm in 50 mls @ 100 mls/hr 08/21/21 00:00 08/21/21 12:49 Zosyn 3.375 Gm/D5w 50ml Pm IVPB 100 mls/hr Q6HR LINO Administration Dextrose 1,000 mls @ 100 mls/hr 08/20/21 18:21 Dextrose 5% 1,000 Ml IVPB PRN PRN Hypoglycemia Protocol Insulin Aspart 3 - 6 units 08/21/21 08:00 08/21/21 12:45 Insulin Aspart (*Bkc) 100 Units/Ml SUB-Q Not Given TIDWM LINO Protocol Metoprolol Tartrate 25 mg 08/21/21 09:00 08/21/21 08:41
[2021-08-21 14:00] VITALS: BP 105/68; PULSE 73; RESP 18; TEMP 36.2; O2SAT 100
--- NOTE | 2021-08-21 15:28 | WPDANESEPPF ---
Anes - Initial Pre Proc Eval Procedure: Operation Date: 08/22/21 12:00 Proposed Procedures p Debridement Right Foot Diabetic Ulcer with Possible Hallux Amputation, Debridement Left Foot Diabetic Ulcer - William Finney MD Date/Time: 08/21/21 15:28 Surgeon: Janet Jacinto MD Pre Op Diagnosis: Diabetic foot Patient Data Age: 55 Gender: M Height: 1.88 m Weight: 92 kg Last Vital Signs Temp 36.2 C L 08/21/21 14:00 Pulse 73 08/21/21 14:00 Resp 18 08/21/21 14:00 BP 105/68 08/21/21 14:00 Pulse Ox 100 08/21/21 14:00 Allergies Allergy/AdvReac Type Severity Reaction Status Date / Time vancomycin AdvReac Other Verified 08/20/21 18:15 Home Medications Medication Instructions Recorded Confirmed Type metformin 500 mg PO BID #60 tablet 04/20/21 08/20/21 Rx doxycycline hyclate 100 mg PO DAILY 08/20/21 08/20/21 History famotidine 20 mg PO DAILY 08/20/21 08/20/21 History gabapentin 300 mg PO BID 08/20/21 08/20/21 History insulin lispro See Protocol SUBCUT ACHS 08/20/21 08/20/21 History liraglutide [Victoza 2-Desean] 0.6 mg SUBCUT DAILY 08/20/21 08/20/21 History metoprolol tartrate 25 mg PO DAILY 08/20/21 08/20/21 History Laboratory Tests 08/20/21 08/20/21 08/20/21 16:11 16:11 16:11 WBC 6.8 K/mm3 K/mm3 (4.5-10.0) RBC 4.62 M/mm3 M/mm3 (4.6-6.20) Hgb 13.1 g/dL L g/dL (14.0-18.0) Hct 42.1 % % (42.0-52.0) MCV 91.1 fl fl (80-100) MCH 28.4 pg pg (26-34) MCHC 31.1 g/dl L g/dl (32-36) RDW 14.8 % H % (11.5-14.5) Plt Count 326 k/mm3 k/mm3 (150-375) MPV 8.7 fl fl (7.4-10.4) Immature Gran % (Auto) 0.6 % H % (0-0.5) Neut % (Auto) 58.3 % % (45.5-73.1) Lymph % (Auto) 31.1 % % (18.3-44.2) Mcdonald % (Auto) 6.4 % % (2.6-8.5) Eos % (Auto) 3.0 % % (0-4.4) Baso % (Auto) 0.6 % % (0.2-1.2) Lymph # (Auto) 2.10 K/mm3 K/mm3 (0.9-3.2) Mcdonald # (Auto) 0.4 K/mm3 K/mm3 (0.1-0.6) Eos # (Auto) 0.2 K/mm3 K/mm3 (0-0.3) Baso # (Auto) 0.0 K/mm3 K/mm3 (0.0-0.1) Abs Immat Gran (auto) 0.04 K/mm3 H K/mm3 (0.00-0.031) Absolute Neuts (auto) 4.0 K/mm3 K/mm3 (1.3-6.7) Absolute Nucleated RBC 0.0 K/mm3 K/mm3 (0.0-0.012) Nucleated RBC % 0.0 % % (0.0-0.2) PT 11.9 Seconds Seconds (11.1-14.7) INR 0.9 APTT 30.0 SECONDS SECONDS (22.3-36.8) Sodium 137 mmol/L mmol/L (137-145) Potassium 4.5 mmol/L mmol/L (3.4-5.0) Chloride 100 mmol/L mmol/L (98-107) Carbon Dioxide 31 mmol/L H mmol/L (22-30) Anion Gap 6 mmol/L L mmol/L (8-16) BUN 18 mg/dL mg/dL (9-20) Creatinine 0.80 mg/dL mg/dL (0.7-1.3) Estim Creat Clear Calc 108 ml/min ml/min Estimated GFR > 60 (59 - ) Glucose 147 mg/dL H mg/dL (65-110) POC Capillary Glucose Hemoglobin A1c Calcium 9.5 mg/dL mg/dL (8.4-10.2) Total Bilirubin 0.1 mg/dL L mg/dL (0.2-1.3) AST 22 U/L U/L (17-59) ALT 12 U/L U/L (4-50) Alkaline Phosphatase 151 U/L H U/L (38-126) C-Reactive Protein Total Protein 8.0 g/dL g/dL (6.3-8.2) Albumin 4.1 g/dL g/dL (3.5-5.1) 08/20/21 08/20/21 08/21/21 16:11 18:52 07:57 WBC RBC Hgb Hct MCV MCH MCHC RDW Plt Count MPV Immature Gran % (Auto) Neut % (Auto) Lymph % (Auto) Mcdonald % (Auto) Eos % (Auto) Baso % (Auto) Lymph # (Auto) Mcdonald # (Auto) Eos # (Auto) Baso # (Auto) Abs Immat Gran (auto) Absol
[2021-08-21 15:29] VITALS: BP 105/68; PULSE 73; RESP 18; TEMP 36.2; O2SAT 100
[2021-08-21] MEDS: oxyCODONE/ACETAMINOPHEN (*CRX) 5-325 MG TABLET 1 TABLET PO (16:22)
[2021-08-21 16:38] LABS: Glucose Point of Care 153 mg/dl (65-105)
[2021-08-21 21:52] LABS: Glucose Point of Care 169 mg/dl (65-105)
[2021-08-22] VITALS (12 sets, daily range): BP systolic 95–123; BP diastolic 58–75; PULSE 71–86; RESP 10–20; TEMP 35.8–36.3; O2SAT 99–100
[2021-08-22] MEDS: LINEZOLID 600 MG/300 ML 600 MG/300 ML SOLN 300 MG IVPB ×2 (05:48→17:12)
[2021-08-22 06:26] LABS: Basophils Percent Auto 0.4 % (0.2-1.2); Eosinophils Absolute Auto 0.2 K/mm3 (0-0.3); Eosinophils Percent Auto 4.7 % (0-4.4); Hematocrit 36.6 % (42.0-52.0); Hemoglobin 11.5 g/dL (14.0-18.0); Immature Granulocyte Absolute 0.02 K/mm3 (0.00-0.031); Immature Granulocyte Percent A 0.4 % (0-0.5); Lymphocytes Absolute Auto 1.22 K/mm3 (0.9-3.2); Mean Corpuscular HGB Conc 31.4 g/dl (32-36); Mean Corpuscular Hemoglobin 28.4 pg (26-34); Mean Corpuscular Volume 90.4 fl (80-100); Mean Platelet Volume 8.7 fl (7.4-10.4); Monocytes Absolute Auto 0.3 K/mm3 (0.1-0.6); Monocytes Percent Auto 7.2 % (2.6-8.5); Neutrophils Absolute Auto 2.9 K/mm3 (1.3-6.7); Neutrophils Percent Auto 61.3 % (45.5-73.1); Platelet Count Result 248 k/mm3 (150-375); Red Blood Count 4.05 M/mm3 (4.6-6.20); Red Cell Distribution Width 14.7 % (11.5-14.5); White Blood Count 4.7 K/mm3 (4.5-10.0)
[2021-08-22 06:36] LABS: Anion Gap 4 mmol/L (8-16); Blood Urea Nitrogen 16 mg/dL (9-20); Calcium 8.8 mg/dL (8.4-10.2); Carbon Dioxide 30 mmol/L (22-30); Chloride 102 mmol/L (98-107); Estimated CRCL calculation 108 ml/min; Estimated Glomerular Filt Rate > 60; Glucose 136 mg/dL (65-110); Potassium 4.1 mmol/L (3.4-5.0); Sodium 136 mmol/L (137-145)
[2021-08-22 07:44] LABS: Glucose Point of Care 148 mg/dl (65-105)
--- NOTE | 2021-08-22 08:10 | WPDHPUPDATE1 ---
History and Physical Update Update Date/Time: 08/22/21 08:10 History and Physical has been reviewed, including an updated exam of the patient. There are NO changes in the patient's condition. Risks, benefits, and alternatives have been discussed and questions answered. Patient agrees to proceed with procedure.
--- NOTE | 2021-08-22 11:01 | PC.NURSE ---
1100 pt off floor for surgery procedure.
[2021-08-22] MEDS: LACTATED RINGERS 1,000 ML 30 ML IV CONT (11:45)
--- NOTE | 2021-08-22 12:12 | PM.PNORT ---
Progress Note: A&P Assessment and Plan (1) Diabetic ulcer of right foot: Qualifiers: Diabetic foot ulcer location: toe Diabetes mellitus type: type 2 Non-pressure ulcer stage: with necrosis of bone Qualified Code(s): E11.621 - Type 2 diabetes mellitus with foot ulcer; L97.514 - Non-pressure chronic ulcer of other part of right foot with necrosis of bone Code(s): E11.621 - Type 2 diabetes mellitus with foot ulcer; L97.519 - Non-pressure chronic ulcer of other part of right foot with unspecified severity Status: Acute Assessment and Plan: Chronic ulcer right foot patient with diabetes and neuropathy. Evidence of osteomyelitis on radiographs. Previous poorly controlled diabetes now improved with most recent hemoglobin A1c. Previous substance abuse. Full discussion with the patient about treatment options. Requires debridement with possible amputation. Questions answered. Patient agreeable and wants to proceed. (2) Diabetic ulcer of right foot associated with diabetes mellitus due to underlying condition: Qualifiers: Diabetic foot ulcer location: toe Non-pressure ulcer stage: with fat layer exposed Qualified Code(s): E08.621 - Diabetes mellitus due to underlying condition with foot ulcer; L97.512 - Non-pressure chronic ulcer of other part of right foot with fat layer exposed Code(s): E08.621 - Diabetes mellitus due to underlying condition with foot ulcer; L97.519 - Non-pressure chronic ulcer of other part of right foot with unspecified severity Status: Acute Assessment and Plan: Left plantar forefoot diabetic ulcer requires debridement. Discussed nonoperative and operative treatment options with the patient. Risks and benefits of each as well as alternatives were reviewed. All of the patient's questions were answered. The risks of surgery reviewed including but not limited to: Neurovascular damage, wound complication, infection, blood clot, pulmonary embolus, stroke, myocardial infarction, and anesthetic risks up to and including . Continued pain and possible dysfunction were explained. Specific risks of the procedure including later recurrence of deformity. No guarantees were offered. If hardware used, discussed risk of failure/ breakage and possible need for removal. If complications occur, the patient understands the need for further treatment, possible further surgery. Patient verbalizes understanding and wishes to proceed. PLAN: Right foot debridement, excision osteomyelitis, possible 1st ray amputation. Left foot debridement. Subjective Subjective Date/Time Seen: 08/22/21 12:12 Principal diagnosis: Right foot osteomyelitis, diabetic foot ulcer Interval history: Patient seen and examined, chart reviewed. Orthopedic consultation reviewed. Exam Const: General: cooperative Nutritional Appearance: average body habitus Orientation/consciousness: patient oriented x3 Limitations: no limitations HENMT: Head: normal to inspection Ears: hearing grossly normal bilaterally General nose exam: Normal external nose present Face and sinus: normal facial exam Mouth: Yes moist mucous membranes Teeth and gingiva: dentition normal Eyes: General: appearance normal, both eyes and all related structures Pupils: Equal, round and reactive pupils present EOM: EOMs intact bilaterally Neck: Neck: normal visual inspection Chest: Chest palpation & inspection: abnormal inspection of the chest (see below ) no erythema Other: Large incision from the neck over the left breast and into the axilla. Incision well healed. No erythema. No warm. No drainage. Resp: Effort & Inspection: normal respiratory effort and able to speak in complete sentences Cardio: Jugular venous distension: no JVD Neuro: General: patient oriented x3 Cranial nerves: Yes Equal, round and reactive pupils present Sensory Exam: No normal sensation Extrem: Right lower extremity: foot (see below for wound det
[2021-08-22] MEDS: BUPIVACAINE HCL 0.5% PF 30 ML VIAL INFILTRATE (12:48)
[2021-08-22 13:52] LABS: Glucose Point of Care 145 mg/dl (65-105)
--- NOTE | 2021-08-22 14:01 | W.PM.PROC2 ---
Procedure Note - Detailed Date of Procedure 08/22/21 Pre-op Diagnosis Diabetic foot ulcer, hallux metatarsophalangeal osteomyelitis, left diabetic foot ulcer Post-op Diagnosis Same Procedure Performed Right 1st ray amputation excisional debridement of right foot diabetic foot ulcer to muscle layer, separate site, 2 x 3 cm. Excisional debridement of left diabetic foot ulcer including skin and subcutaneous tissue, 2 x 2 cm Surgeon William Finney MD [employer] mortgage assistant Anesthesia General Indications 55-year-old gentleman with diabetes peripheral neuropathy with a chronic right foot ulcer under the 1st metatarsal head which has progressed osteomyelitis. Also diabetic foot ulcer under the plantar lateral forefoot as well as the left plantar lateral forefoot. Presents for operative treatment. Findings Osteomyelitis and necrosis of the right 1st metatarsal and proximal phalanx of the hallux. Abscess from the metatarsophalangeal joint communicating with the plantar ulcer. Unable to salvage the hallux due to involvement of infection as well as necrosis of the entire distal 1st metatarsal and the proximal phalanx. Description of Procedure Discussion of treatment options with the patient. Risks benefits and alternatives of surgery discussed in detail. Informed consent given. Operative extremity marked in the preoperative holding area. The patient is currently on intravenous antibiotics. He is brought to the operating room and positioned supine in the operating room table. He underwent general anesthesia by the anesthesia team. Right foot was prepped and draped usual sterile surgical fashion using a Betadine prep solution. Leg tourniquet applied with an Esmarch bandage at the ankle. There was noted to be bone protruding through the plantar ulceration the right foot. The bone was necrotic. A dorsal longitudinal incision was made with a 15 blade knife over the distal 1st metatarsal and metatarsophalangeal joint. There was noted to be necrosis infection of the entire distal aspect of the 1st metatarsal as well as the metatarsophalangeal joint and the entire proximal phalanx of the hallux. Due to this, with resection the involved bone, the hallux was not able to be salvaged. Osteotomy of the 1st metatarsal performed near the base with osteotome and smoothed with a rongeur. The infected portion of the 1st metatarsal as well as the hallux was then sharply excised from the surrounding soft tissue and passed off as specimen. Infected soft tissue was sharply debrided with a 15 blade. The portion of remaining 1st metatarsal was then further resected with an osteotome and rongeur to good bleeding healthy appearing bone surface. Wound thoroughly irrigated antibiotic solution. The tourniquet was released and bleeding points were coagulated. Thorough irrigation again done. The wound then closed with 0 Monocryl interrupted subcuticular stitches and 0 Prolene interrupted suture for the skin. Attention then turned to the plantar lateral ulcer which involved the muscle layer. Fifteen blade knife used to sharply excise devitalized tissue from skin, subcutaneous tissue and muscle. This was thoroughly irrigated antibiotic solution. The foot was then covered with sterile dressing. Left foot then addressed. Betadine prep solution 10 blade knife used to sharply debride the left plantar lateral foot ulcer. Excisional debridement of skin, subcutaneous tissue performed. Wound thoroughly irrigated and sterile dressing applied. Patient was then awoke from anesthesia, extubated and taken to the recovery room in stable condition. All sponge needle and instrument counts correct at the end of the case. Implants None Estimated Blood Loss 20 Tourniquet Time 30 Urine Output 850 Drains No Packing No Pathology Yes (Right hallux and 1st ray) Complications No immediate complications Condition Stable Disposition PACU
--- NOTE | 2021-08-22 14:52 | PC.NURSE ---
1452 pt back in room from surgery.
--- NOTE | 2021-08-22 15:20 | PM.IMPN ---
Progress Note: A&P Assessment and Plan (1) Diabetic ulcer of right foot: Qualifiers: Diabetic foot ulcer location: toe Diabetes mellitus type: type 2 Non-pressure ulcer stage: with necrosis of bone Qualified Code(s): E11.621 - Type 2 diabetes mellitus with foot ulcer; L97.514 - Non-pressure chronic ulcer of other part of right foot with necrosis of bone Code(s): E11.621 - Type 2 diabetes mellitus with foot ulcer; L97.519 - Non-pressure chronic ulcer of other part of right foot with unspecified severity Status: Acute Assessment and Plan: Plan for debridement of R foot and amputation of Right 1st digit continue with Zosyn+Zyvox Pain control F/U cultures from OR (2) Cellulitis of right foot: Code(s): L03.115 - Cellulitis of right lower limb Status: Acute Assessment and Plan: see above (3) Type 2 diabetes mellitus: Code(s): E11.9 - Type 2 diabetes mellitus without complications Status: Acute Assessment and Plan: AccuCheck, ssi (4) Tobacco dependence: Code(s): F17.200 - Nicotine dependence, unspecified, uncomplicated Status: Chronic Assessment and Plan: Smoking cessation adviced Subjective Date/time seen: 08/22/21 15:20 Interval history: 55-year-old male with type 2 diabetes mellitus and diabetic peripheral neuropathy who presented to the emergency department for evaluation of a worsening right foot wound. He is known to the hospitalist service from a fairly lengthy stay earlier this year in which he was admitted with septic arthritis of the left knee and cellulitis of the right foot around a chronic diabetic foot wound. Pt is going today for debridement of his R foot and also his L foot Review of Systems Review of Systems: All systems reviewed & are unremarkable except as noted in HPI and below Exam Const: General: comfortable and no acute distress Eyes: Sclera: sclerae normal Pupils: Equal, round and reactive pupils present Neck: Neck: supple Resp: Auscultation: clear to auscultation bilaterally Cardio: Rate: regular rate Rhythm: regular rhythm Skin: General skin exam: normal color Wounds: wounds noted (dressing over right foot) Objective Data Vital Signs Vital Signs: Vital Signs - 24 hr 08/21/21 15:29 08/22/21 02:42 08/22/21 08:00 Temperature 36.2 C L 36.3 C L Pulse Rate 73 85 Respiratory Rate 18 18 Blood Pressure 105/68 102/58 L Pulse Oximetry 100 99 100 08/22/21 11:19 08/22/21 13:46 08/22/21 14:01 Temperature 36.1 C L 36.3 C L Pulse Rate 76 73 77 Respiratory Rate 16 14 12 Blood Pressure 123/67 108/71 106/75 Pulse Oximetry 100 100 100 08/22/21 14:16 08/22/21 14:31 08/22/21 14:46 Temperature Pulse Rate 74 71 75 Respiratory Rate 12 12 10 L Blood Pressure 117/69 122/73 120/72 Pulse Oximetry 100 100 100 08/22/21 15:16 Temperature 35.8 C L Pulse Rate 71 Respiratory Rate 18 Blood Pressure 114/64 Pulse Oximetry 100 Intake/Output Intake/Output: Intake & Output 08/19/21 08/20/21 08/21/21 08/22/21 23:59 23:59 23:59 23:59 Intake Total 50 1508 1150 Output Total 1750 1700 Balance 50 -527 -496 Meds/Results Medications: Active Medications Generic Name Dose Route Start Last Admin Trade Name Freq PRN Reason Stop Dose Admin Acetaminophen 650 mg 08/20/21 21:19 Acetaminophen 325 Mg Tablet PO Q6H PRN Mild Pain (1-3) or Fever Bisacodyl 10 mg 08/22/21 14:47 Bisacodyl 10 Mg Suppository RECTAL DAILY PRN Constipation Dextrose 12.5 gm 08/20/21 18:21 Dextrose 50% 25 Gm/50 Ml Syringe IV PUSH PRN PRN Hypoglycemia Protocol Famotidine 20 mg 08/21/21 09:00 08/22/21 15:10 Famotidine 20 Mg Tablet PO Not Given DAILY LINO Fentanyl Citrate 25 mcg 08/21/21 15:29 Fentanyl Citrate Inj (*Crx) 100 Mcg/2 Ml Vial IV PUSH Q2M PRN Pain Gabapentin 300 mg 08/20/21 21:00 08/22/21 15:10 Gabapentin 300 Mg Caps
[2021-08-22 16:45] LABS: Glucose Point of Care 123 mg/dl (65-105)
[2021-08-22 16:51] LABS: INR 1.1; Prothrombin Time 13.4 Seconds (11.1-14.7)
[2021-08-22 19:58] LABS: Glucose Point of Care 246 mg/dl (65-105)
[2021-08-22] MEDS: oxyCODONE/ACETAMINOPHEN (*CRX) 5-325 MG TABLET 1 TABLET PO (20:32)
[2021-08-22] MEDS: GABAPENTIN 300 MG CAPSULE PO (20:32)
[2021-08-23 03:54] VITALS: BP 97/62; PULSE 79; RESP 18; TEMP 36.7; O2SAT 100
[2021-08-23] MEDS: LINEZOLID 600 MG/300 ML 600 MG/300 ML SOLN 300 MG IVPB ×2 (06:00→18:36)
--- NOTE | 2021-08-23 07:51 | WPDANESPN ---
Anes - Prog Note Post-Op Date/Time: 08/23/21 07:51 Cardiovascular status: normal Respiratory status: normal Airway patency: baseline Mental status: baseline Post-Op hydration status: normal Vital Signs: Last Vital Signs Temp 98.0 F 08/23/21 03:54 Pulse 79 08/23/21 03:54 Resp 18 08/23/21 03:54 BP 97/62 L 08/23/21 03:54 Pulse Ox 100 08/23/21 03:54 Pain Score (VAS): 2/10 I/O: Intake & Output 08/22/21 08/22/21 08/23/21 15:59 23:59 07:59 Intake Total 250 1422 290 Output Total 1700 800 400 Balance -1450 622 -110 Laboratory Tests 08/22/21 06:00 08/22/21 06:00 08/22/21 08/22/21 08/22/21 13:49 16:07 16:11 PT 13.4 INR 1.1 POC Capillary Glucose 145 H 123 H 08/22/21 19:48 PT INR POC Capillary Glucose 246 H Post-procedural complaints: none Patient Feedback: Patient satisfied with anesthetic care.
[2021-08-23 08:08] LABS: Glucose Point of Care 215 mg/dl (65-105)
[2021-08-23 08:11] VITALS: O2SAT 99
[2021-08-23] MEDS: GABAPENTIN 300 MG CAPSULE PO ×2 (08:49→21:11)
[2021-08-23] MEDS: FAMOTIDINE 20 MG TABLET PO (08:49)
[2021-08-23] MEDS: METOPROLOL TARTRATE 25 MG TABLET PO (08:49)
[2021-08-23] MEDS: INSULIN ASPART (*BKC) 100 UNITS/ML SUB-Q (08:50)
[2021-08-23 11:58] LABS: Glucose Point of Care 187 mg/dl (65-105)
--- NOTE | 2021-08-23 12:38 | PM.IMPN ---
Progress Note: A&P Assessment and Plan (1) Diabetic ulcer of right foot: Qualifiers: Diabetic foot ulcer location: toe Diabetes mellitus type: type 2 Non-pressure ulcer stage: with necrosis of bone Qualified Code(s): E11.621 - Type 2 diabetes mellitus with foot ulcer; L97.514 - Non-pressure chronic ulcer of other part of right foot with necrosis of bone Code(s): E11.621 - Type 2 diabetes mellitus with foot ulcer; L97.519 - Non-pressure chronic ulcer of other part of right foot with unspecified severity Status: Acute Assessment and Plan: Sp debridement of R foot and amputation of Right 1st digit continue with IV Zosyn+Zyvox Pain control F/U cultures from OR (2) Cellulitis of right foot: Code(s): L03.115 - Cellulitis of right lower limb Status: Acute Assessment and Plan: see above (3) Type 2 diabetes mellitus: Code(s): E11.9 - Type 2 diabetes mellitus without complications Status: Acute Assessment and Plan: AccuCheck, ssi (4) Tobacco dependence: Code(s): F17.200 - Nicotine dependence, unspecified, uncomplicated Status: Chronic Assessment and Plan: Smoking cessation adviced Subjective Date/time seen: 08/23/21 12:38 Interval history: 55-year-old male with type 2 diabetes mellitus and diabetic peripheral neuropathy who presented to the emergency department for evaluation of a worsening right foot wound. He is known to the hospitalist service from a fairly lengthy stay earlier this year in which he was admitted with septic arthritis of the left knee and cellulitis of the right foot around a chronic diabetic foot wound. Pt is sp debridement of his R foot and also his L foot and amputation of Right 1st digit Review of Systems Review of Systems: All systems reviewed & are unremarkable except as noted in HPI and below Exam Const: General: comfortable and no acute distress Eyes: Sclera: sclerae normal Pupils: Equal, round and reactive pupils present Neck: Neck: supple Resp: Auscultation: clear to auscultation bilaterally Cardio: Rate: regular rate Rhythm: regular rhythm Skin: General skin exam: normal color Wounds: wounds noted (dressing over right foot and left foot both with cassandra wrap ) Neuro: Cranial nerves: Yes Equal, round and reactive pupils present Objective Data Vital Signs Vital Signs: Vital Signs - 24 hr 08/22/21 13:46 08/22/21 14:01 08/22/21 14:16 Temperature 36.3 C L Pulse Rate 73 77 74 Respiratory Rate 14 12 12 Blood Pressure 108/71 106/75 117/69 Pulse Oximetry 100 100 100 08/22/21 14:31 08/22/21 14:46 08/22/21 15:16 Temperature 35.8 C L Pulse Rate 71 75 71 Respiratory Rate 12 10 L 18 Blood Pressure 122/73 120/72 114/64 Pulse Oximetry 100 100 100 08/22/21 20:00 08/22/21 22:25 08/22/21 23:46 Temperature 36.2 C L 36.3 C L Pulse Rate 86 83 Respiratory Rate 20 18 Blood Pressure 95/67 L 100/61 Pulse Oximetry 99 99 99 08/23/21 03:54 08/23/21 08:11 Temperature 36.7 C Pulse Rate 79 Respiratory Rate 18 Blood Pressure 97/62 L Pulse Oximetry 100 99 Intake/Output Intake/Output: Intake & Output 08/20/21 08/21/21 08/22/21 08/23/21 23:59 23:59 23:59 23:59 Intake Total 50 1508 2572 876 Output Total 1750 2500 400 Balance 50 -242 72 476 Meds/Results Medications: Active Medications Generic Name Dose Route Start Last Admin Trade Name Cornelia PRN Reason Stop Dose Admin Acetaminophen 650 mg 08/20/21 21:19 Acetaminophen 325 Mg Tablet PO Q6H PRN Mild Pain (1-3) or Fever Bisacodyl 10 mg 08/22/21 14:47 Bisacodyl 10 Mg Suppository RECTAL DAILY PRN Constipation Dextrose 12.5 gm 08/20/21 18:21 Dextrose 50% 25 Gm/50 Ml Syringe IV PUSH PRN PRN Hypoglycemia Protocol Famotidine 20 mg 08/21/21 09:00 08/23/21 08:49 Famotidine 20 Mg Tablet PO 20 mg DAILY LINO Administration Fentanyl Citrate 25 mcg 08/21/21 15:29
--- NOTE | 2021-08-23 12:55 | PM.PNORT ---
Progress Note: A&P Assessment and Plan (1) Gangrene of right foot: Code(s): I96 - Gangrene, not elsewhere classified Status: Acute Assessment and Plan: postop day 1 right 1st ray amputation and debridement of ulcer, left foot debridement. Dressing changes today. Patient evaluated with wound care. Instructions for daily dressing care entered. Right foot healing dependent surgical wound. Discussed very real risk of wound dehiscence, ulcer, poor healing and further problems necessitating treatment and possible surgery. Patient verbalized understanding. Nonweightbearing of right foot. Protected weight-bearing of left foot. Appreciate PT/OT. Subjective Subjective Date/Time Seen: 08/23/21 12:55 Post Op day: 1 Principal diagnosis: right foot osteomyelitis with diabetic foot ulcer Interval history: surgical findings reviewed with the patient. Necrosis of the hallux metatarsophalangeal joint and distal 1st metatarsal. Large wound unable to be closed without amputation. Exam Const: General: cooperative Orientation/consciousness: patient oriented x3 Resp: Effort & Inspection: normal respiratory effort and able to speak in complete sentences Neuro: General: patient oriented x3 Extrem: Right lower extremity: foot (see below for wound details ) Details: abnormal ROM of toe (Hallux- limited ROM ), warmth, vascular exam Details: dorsalis pedis pulse present (palpable ) and motor-sensory exam Details: two point discrimination abnormal and light-touch abnormal; no ecchymosis Left lower extremity: knee (no signs of active infection ) Details: tenderness (diffuse ), swelling (mild knee joint effusion ), abnormal ROM (flexion contracture ) Details: with range as follows (20-100 degrees AROM), deformity (flexion contracture ) and other (incision well healed ); no abrasions, no lacerations, no ecchymosis and no foreign bodies and foot (callus at the based of the 4th MTP joint, no drainage. ) Details: normal capillary refill, vascular exam Details: dorsalis pedis pulse present (palpable ) and motor-sensory exam two point discrimination abnormal and light-touch abnormal; no tenderness, no unusual warmth, edema noted and no edema Other: Right foot dressing changed. Medial foot incision with sanguinous drainage and mild swelling. Mild surrounding erythema. Lateral callus intact after debridement. New dressing applied. Callus on the plantar aspect of the LEFT 4th MTP joint Debrided. dressing changed. No open areas. No drainage. Objective Data Vital Signs Vital Signs: Vital Signs - 24 hr 08/22/21 13:46 08/22/21 14:01 08/22/21 14:16 Temperature 97.4 F L Pulse Rate 73 77 74 Respiratory Rate 14 12 12 Blood Pressure 108/71 106/75 117/69 Pulse Oximetry 100 100 100 08/22/21 14:31 08/22/21 14:46 08/22/21 15:16 Temperature 96.5 F L Pulse Rate 71 75 71 Respiratory Rate 12 10 L 18 Blood Pressure 122/73 120/72 114/64 Pulse Oximetry 100 100 100 08/22/21 20:00 08/22/21 22:25 08/22/21 23:46 Temperature 97.2 F L 97.3 F L Pulse Rate 86 83 Respiratory Rate 20 18 Blood Pressure 95/67 L 100/61 Pulse Oximetry 99 99 99 08/23/21 03:54 08/23/21 08:11 Temperature 98.0 F Pulse Rate 79 Respiratory Rate 18 Blood Pressure 97/62 L Pulse Oximetry 100 99 Intake/Output Intake/Output: Intake & Output 08/20/21 08/21/21 08/22/21 08/23/21 23:59 23:59 23:59 23:59 Intake Total 50 1508 2572 876 Output Total 1750 2500 400 Balance 50 -242 72 476 Meds/Results Medications: Active Medications Generic Name Dose Route Start Last Admin Trade Name Freq PRN Reason Stop Dose Admin Acetaminophen 650 mg 08/20/21 21:19 Acetaminophen 325 Mg Tablet PO Q6H PRN Mild Pain (1-3) or Fever Bisacodyl 10 mg 08/22/21 14:47 Bisacodyl 10 Mg Suppository RECTAL DAILY PRN Constipation Dextrose 12.5 gm 08/20/21 18:21 Dextrose 50% 25 Gm/50 Ml Syringe IV PUSH PRN PRN Hypoglycemia
[2021-08-23 13:22] VITALS: BP 95/58; PULSE 77; RESP 15; TEMP 36.2; O2SAT 100
--- NOTE | 2021-08-23 13:25 | PC.NURSE ---
On 08/23/21, the student, Frances Good, provided care and completed [employer] documentation on this patient. I have reviewed the student's documentation and agree with the findings.
[2021-08-23 15:32] VITALS: BP 94/85; PULSE 74; RESP 18; TEMP 35.7; O2SAT 97
[2021-08-23 16:52] LABS: Glucose Point of Care 244 mg/dl (65-105)
[2021-08-23 20:24] LABS: Glucose Point of Care 163 mg/dl (65-105)
[2021-08-23 21:55] VITALS: BP 93/64; PULSE 74; RESP 16; TEMP 36.3; O2SAT 100
[2021-08-24] MEDS: LINEZOLID 600 MG/300 ML 600 MG/300 ML SOLN 300 MG IVPB ×2 (05:48→17:40)
[2021-08-24 08:03] LABS: Glucose Point of Care 202 mg/dl (65-105)
[2021-08-24 08:24] VITALS: O2SAT 99
[2021-08-24] MEDS: FAMOTIDINE 20 MG TABLET PO (08:51)
[2021-08-24] MEDS: METOPROLOL TARTRATE 25 MG TABLET PO (08:51)
[2021-08-24] MEDS: INSULIN ASPART (*BKC) 100 UNITS/ML SUB-Q ×2 (08:51→17:40)
[2021-08-24] MEDS: GABAPENTIN 300 MG CAPSULE PO ×2 (08:51→20:17)
[2021-08-24 11:36] LABS: Glucose Point of Care 155 mg/dl (65-105)
--- NOTE | 2021-08-24 13:30 | PM.IMPN ---
Progress Note: A&P Assessment and Plan (1) Diabetic ulcer of right foot: Qualifiers: Diabetic foot ulcer location: toe Diabetes mellitus type: type 2 Non-pressure ulcer stage: with necrosis of bone Qualified Code(s): E11.621 - Type 2 diabetes mellitus with foot ulcer; L97.514 - Non-pressure chronic ulcer of other part of right foot with necrosis of bone Code(s): E11.621 - Type 2 diabetes mellitus with foot ulcer; L97.519 - Non-pressure chronic ulcer of other part of right foot with unspecified severity Status: Acute Assessment and Plan: Sp debridement of R foot and amputation of Right 1st digit continue with IV Zosyn+Zyvox Pain control Cultures showing pseudomonas from OR continue current IV ABX today Pt had his R boot delivered today (2) Cellulitis of right foot: Code(s): L03.115 - Cellulitis of right lower limb Status: Acute Assessment and Plan: see above (3) Type 2 diabetes mellitus: Code(s): E11.9 - Type 2 diabetes mellitus without complications Status: Acute Assessment and Plan: AccFlorecita, марина (4) Tobacco dependence: Code(s): F17.200 - Nicotine dependence, unspecified, uncomplicated Status: Chronic Assessment and Plan: Smoking cessation adviced Subjective Date/time seen: 08/24/21 13:30 Interval history: 55-year-old male with type 2 diabetes mellitus and diabetic peripheral neuropathy who presented to the emergency department for evaluation of a worsening right foot wound. He is known to the hospitalist service from a fairly lengthy stay earlier this year in which he was admitted with septic arthritis of the left knee and cellulitis of the right foot around a chronic diabetic foot wound. Pt is sp debridement of his R foot and also his L foot and amputation of Right 1st digit. Cultures are showing pseudomonas, tried to discuss with orthopedic DISABILITY EXAMINER but she is out of the day. Continue current care until we decide on outpatient ABX tomorrow. Review of Systems Review of Systems: All systems reviewed & are unremarkable except as noted in HPI and below Exam Const: General: comfortable and no acute distress Eyes: Sclera: sclerae normal Pupils: Equal, round and reactive pupils present Neck: Neck: supple Resp: Auscultation: clear to auscultation bilaterally Cardio: Rate: regular rate Rhythm: regular rhythm Skin: General skin exam: normal color Wounds: wounds noted (R foot covered over the gauze dressing absent digit noted ) Neuro: Cranial nerves: Yes Equal, round and reactive pupils present Objective Data Vital Signs Vital Signs: Vital Signs - 24 hr 08/23/21 15:32 08/23/21 21:55 08/24/21 08:24 Temperature 35.7 C L 36.3 C L Pulse Rate 74 74 Respiratory Rate 18 16 Blood Pressure 94/85 L 93/64 L Pulse Oximetry 97 100 99 Intake/Output Intake/Output: Intake & Output 08/21/21 08/22/21 08/23/21 08/24/21 23:59 23:59 23:59 23:59 Intake Total 1508 2572 1680 1700 Output Total 1750 2500 1050 600 Balance -242 72 630 1100 Meds/Results Medications: Active Medications Generic Name Dose Route Start Last Admin Trade Name Freq PRN Reason Stop Dose Admin Acetaminophen 650 mg 08/20/21 21:19 Acetaminophen 325 Mg Tablet PO Q6H PRN Mild Pain (1-3) or Fever Bisacodyl 10 mg 08/22/21 14:47 Bisacodyl 10 Mg Suppository RECTAL DAILY PRN Constipation Dextrose 12.5 gm 08/20/21 18:21 Dextrose 50% 25 Gm/50 Ml Syringe IV PUSH PRN PRN Hypoglycemia Protocol Famotidine 20 mg 08/21/21 09:00 08/24/21 08:51 Famotidine 20 Mg Tablet PO 20 mg DAILY LINO Administration Fentanyl Citrate 25 mcg 08/21/21 15:29 Fentanyl Citrate Inj (*Crx) 100 Mcg/2 Ml Vial IV PUSH Q2M PRN Pain Gabapentin 300 mg 08/20/21 21:00 08/24/21 08:51 Gabapentin 300 Mg Capsule PO 300 mg Q12HR LINO Administration Glucagon 1 mg 08/20/21 18:21 Glucagon For Inj 1 Mg
[2021-08-24 15:13] VITALS: BP 116/64; PULSE 81; RESP 20; TEMP 36.6; O2SAT 100
[2021-08-24] MEDS: oxyCODONE/ACETAMINOPHEN (*CRX) 5-325 MG TABLET 1 TABLET PO ×2 (15:35→20:15)
[2021-08-24 16:37] LABS: Glucose Point of Care 246 mg/dl (65-105)
[2021-08-24 20:03] LABS: Glucose Point of Care 166 mg/dl (65-105)
[2021-08-24 21:28] VITALS: O2SAT 98
[2021-08-24 22:00] VITALS: BP 97/65; PULSE 71; RESP 18; TEMP 36.8; O2SAT 100
[2021-08-25] MEDS: LINEZOLID 600 MG/300 ML 600 MG/300 ML SOLN 300 MG IVPB ×2 (05:28→18:20)
[2021-08-25 05:51] VITALS: BP 87/47; PULSE 68; RESP 14; TEMP 36.5; O2SAT 100
[2021-08-25 06:00] VITALS: BP 104/52
[2021-08-25 06:33] LABS: Anion Gap 4 mmol/L (8-16); Blood Urea Nitrogen 16 mg/dL (9-20); Calcium 8.8 mg/dL (8.4-10.2); Carbon Dioxide 31 mmol/L (22-30); Chloride 102 mmol/L (98-107); Estimated CRCL calculation 97 ml/min; Estimated Glomerular Filt Rate > 60; Glucose 167 mg/dL (65-110); Potassium 3.8 mmol/L (3.4-5.0); Sodium 137 mmol/L (137-145)
[2021-08-25 06:47] LABS: Hematocrit 33.7 % (42.0-52.0); Hemoglobin 10.7 g/dL (14.0-18.0); Mean Corpuscular HGB Conc 31.8 g/dl (32-36); Mean Corpuscular Hemoglobin 28.5 pg (26-34); Mean Corpuscular Volume 89.6 fl (80-100); Mean Platelet Volume 8.6 fl (7.4-10.4); Platelet Count Result 269 k/mm3 (150-375); Red Blood Count 3.76 M/mm3 (4.6-6.20); Red Cell Distribution Width 14.6 % (11.5-14.5); White Blood Count 4.1 K/mm3 (4.5-10.0)
[2021-08-25 08:23] LABS: Glucose Point of Care 185 mg/dl (65-105)
[2021-08-25 09:11] VITALS: PULSE 76
[2021-08-25] MEDS: METOPROLOL TARTRATE 25 MG TABLET PO (09:11)
[2021-08-25] MEDS: SENNA/DOCUSATE SODIUM TABLET 2 TAB PO (09:12)
[2021-08-25] MEDS: GABAPENTIN 300 MG CAPSULE PO ×2 (09:12→21:55)
[2021-08-25] MEDS: FAMOTIDINE 20 MG TABLET PO (09:12)
--- NOTE | 2021-08-25 10:17 | PCPTNOTE ---
Attempted to see patient for PT, however patient states he was not ready to get up out of bed at this time. PT will continue to follow per plan of care.
[2021-08-25] MEDS: oxyCODONE/ACETAMINOPHEN (*CRX) 5-325 MG TABLET 1 TABLET PO (11:26)
[2021-08-25 11:49] LABS: Glucose Point of Care 232 mg/dl (65-105)
[2021-08-25] MEDS: INSULIN ASPART (*BKC) 100 UNITS/ML SUB-Q (12:01)
[2021-08-25 14:00] VITALS: BP 106/58; PULSE 62; RESP 18; TEMP 36.4; O2SAT 100
--- NOTE | 2021-08-25 14:05 | PM.IMPN ---
Progress Note: A&P Assessment and Plan (1) Diabetic ulcer of right foot: Qualifiers: Diabetes mellitus type: type 2 Diabetic foot ulcer location: toe Non-pressure ulcer stage: with necrosis of bone Qualified Code(s): E11.621 - Type 2 diabetes mellitus with foot ulcer; L97.514 - Non-pressure chronic ulcer of other part of right foot with necrosis of bone Code(s): E11.621 - Type 2 diabetes mellitus with foot ulcer; L97.519 - Non-pressure chronic ulcer of other part of right foot with unspecified severity Status: Acute Assessment and Plan: Sp debridement of R foot and amputation of Right 1st digit. He has also undergone left callus removal. He tolerated this procedures well. Blood cultures no growth today. Wound culture growing Pseudomonas. Currently on Zosyn and linezolid. White count slightly decreased which could be related to the antibiotics. Continue IV antibiotics. Continue therapy. Pain control per Orthopedics. Plan for oral antibiotics at discharge. Continue monitor CBC. (2) Cellulitis of right foot: Code(s): L03.115 - Cellulitis of right lower limb Status: Acute Assessment and Plan: As above. (3) Type 2 diabetes mellitus: Code(s): E11.9 - Type 2 diabetes mellitus without complications Status: Acute Assessment and Plan: The patient's blood glucose was reviewed on 08/25 Glucose remains reasonably well controlled. Continue AccuCheks covering with sliding scale. Hypoglycemia protocol available as needed. Continue to monitor. (4) Tobacco dependence: Code(s): F17.200 - Nicotine dependence, unspecified, uncomplicated Status: Chronic Assessment and Plan: Patient was congratulated on stopping smoking. He has been educated about the benefits of smoking cessation. Additional Plan Depressed mood -patient tearful from his multiple and prolonged hospitalizations. Patient is not on medications for depression. Will await discharge plan. If he has a prolonged hospitalization or requiring rehab then consider SSRI treatment Subjective Date/time seen: 08/25/21 14:05 Interval history: 55-year-old male with type 2 diabetes mellitus and diabetic peripheral neuropathy who presented to the emergency department for evaluation of a worsening right foot wound. Assuming care. Chart reviewed. Blood pressure was low this morning. He denies any chest pain or shortness of breath. Right foot pain is 7 on a 10. He states the chest wound has healed well. He quit tobacco he states. He was congratulated on this. Exam Narrative: AF 97.7 104/52 76 14 100% ra Gen - NARD Chest - CTA bilaterally, nml RR. Chest wall scars noted and has healed well. CV - RRR S1/S2 Abd - Soft, NT/ND, Positive BS Ext - No pedal edema. Psych -patient upset and tearful at times. Skin -left distal plantar quarter-sized callus has been removed overlying the 4th metatarsal head. No bleeding. Right great toe has been amputated and dressing is clean and dry except for a small spot of red blood on the dressing. Objective Data Vital Signs Vital Signs: Vital Signs - 24 hr 08/24/21 15:13 08/24/21 21:28 08/24/21 22:00 Temperature 97.8 F 98.3 F Pulse Rate 81 71 Respiratory Rate 20 18 Blood Pressure 116/64 97/65 L Pulse Oximetry 100 98 100 08/25/21 05:51 08/25/21 06:00 08/25/21 09:11 Temperature 97.7 F Pulse Rate 68 76 Respiratory Rate 14 Blood Pressure 87/47 L 104/52 L Pulse Oximetry 100 Intake/Output Intake/Output: Intake & Output 08/22/21 08/23/21 08/24/21 08/25/21 23:59 23:59 23:59 23:59 Intake Total 2572 1680 2170 390 Output Total 2500 1050 1150 500 Balance 72 630 1020 -110 Meds/Results Medications: Active Medications Generic Name Dose Route Start Last Admin Trade Name Freq PRN Reason Stop Dose Admin Acetaminophen 650 mg 08/20/21 21:19 Acetaminophen 325 Mg Tablet PO Q6H PRN Mild Pain (1-3) or
--- NOTE | 2021-08-25 14:47 | PM.PNORT ---
Progress Note: A&P Assessment and Plan (1) Gangrene of right foot: Code(s): I96 - Gangrene, not elsewhere classified Status: Acute Assessment and Plan: postop day 3 right 1st ray amputation and debridement of ulcer, left foot debridement. Dressing changes today. cultures showing pansensitive Pseudomonas. Disposition to home when medically stable. Pain medication prescription sent in. Patient will need to follow up in the [facility] in 3 weeks for suture removal. Nonweightbearing of right foot with fracture boot. Protected weight-bearing of left foot with postoperative shoe. Appreciate PT/OT. Subjective Subjective Date/Time Seen: 08/25/21 14:47 Post Op day: 3 Principal diagnosis: Right foot osteomyelitis, bilateral diabetic foot ulcers Interval history: patient without new complaints. Would like to go home. Exam Const: General: cooperative Orientation/consciousness: patient oriented x3 Resp: Effort & Inspection: normal respiratory effort and able to speak in complete sentences Neuro: General: patient oriented x3 Extrem: Right lower extremity: foot (see below for wound details ) Details: abnormal ROM of toe (Hallux- limited ROM ), warmth, vascular exam Details: dorsalis pedis pulse present (palpable ) and motor-sensory exam Details: two point discrimination abnormal and light-touch abnormal; no ecchymosis Left lower extremity: knee (no signs of active infection ) Details: tenderness (diffuse ), swelling (mild knee joint effusion ), abnormal ROM (flexion contracture ) Details: with range as follows (20-100 degrees AROM), deformity (flexion contracture ) and other (incision well healed ); no abrasions, no lacerations, no ecchymosis and no foreign bodies and foot (callus at the based of the 4th MTP joint, no drainage. ) Details: normal capillary refill, vascular exam Details: dorsalis pedis pulse present (palpable ) and motor-sensory exam two point discrimination abnormal and light-touch abnormal; no tenderness, no unusual warmth, edema noted and no edema Other: Right foot dressing changed. Medial foot incision with Improvement in sanguinous drainage and mild swelling. Mild surrounding erythema. Lateral callus intact after debridement. New dressing applied. Callus on the plantar aspect of the LEFT 4th MTP joint Debrided. dressing changed. No open areas. No drainage. Objective Data Vital Signs Vital Signs: Vital Signs - 24 hr 08/24/21 15:13 08/24/21 21:28 08/24/21 22:00 Temperature 97.8 F 98.3 F Pulse Rate 81 71 Respiratory Rate 20 18 Blood Pressure 116/64 97/65 L Pulse Oximetry 100 98 100 08/25/21 05:51 08/25/21 06:00 08/25/21 09:11 Temperature 97.7 F Pulse Rate 68 76 Respiratory Rate 14 Blood Pressure 87/47 L 104/52 L Pulse Oximetry 100 Intake/Output Intake/Output: Intake & Output 08/22/21 08/23/21 08/24/21 08/25/21 23:59 23:59 23:59 23:59 Intake Total 2572 1680 2170 390 Output Total 2500 1050 1150 500 Balance 72 630 1020 -110 Meds/Results Medications: Active Medications Generic Name Dose Route Start Last Admin Trade Name Freq PRN Reason Stop Dose Admin Acetaminophen 650 mg 08/20/21 21:19 Acetaminophen 325 Mg Tablet PO Q6H PRN Mild Pain (1-3) or Fever Bisacodyl 10 mg 08/22/21 14:47 Bisacodyl 10 Mg Suppository RECTAL DAILY PRN Constipation Dextrose 12.5 gm 08/20/21 18:21 Dextrose 50% 25 Gm/50 Ml Syringe IV PUSH PRN PRN Hypoglycemia Protocol Famotidine 20 mg 08/21/21 09:00 08/25/21 09:12 Famotidine 20 Mg Tablet PO 20 mg DAILY LINO Administration Fentanyl Citrate 25 mcg 08/21/21 15:29 Fentanyl Citrate Inj (*Crx) 100 Mcg/2 Ml Vial IV PUSH Q2M PRN Pain Gabapentin 300 mg 08/20/21 21:00 08/25/21 09:12 Gabapentin 300 Mg Capsule PO 300 mg Q12HR LINO Administration Glucagon 1 mg 08/20/21 18:21 Glucagon For Inj 1 Mg Vial IM PRN PRN Hypoglyc
[2021-08-25 16:50] LABS: Glucose Point of Care 186 mg/dl (65-105)
[2021-08-25 22:00] VITALS: BP 104/59; PULSE 62; RESP 16; TEMP 36.1; O2SAT 100
[2021-08-25 22:02] LABS: Glucose Point of Care 249 mg/dl (65-105)
[2021-08-26 06:00] VITALS: BP 106/61; PULSE 64; RESP 16; TEMP 36.3; O2SAT 100
[2021-08-26] MEDS: LINEZOLID 600 MG/300 ML 600 MG/300 ML SOLN 300 MG IVPB (06:09)
[2021-08-26 07:53] LABS: Glucose Point of Care 194 mg/dl (65-105)
[2021-08-26 09:00] VITALS: PULSE 68
[2021-08-26] MEDS: METOPROLOL TARTRATE 25 MG TABLET PO (09:00)
[2021-08-26] MEDS: FAMOTIDINE 20 MG TABLET PO (09:00)
[2021-08-26] MEDS: GABAPENTIN 300 MG CAPSULE PO ×2 (09:01→20:51)
[2021-08-26 09:10] LABS: Basophils Percent Auto 0.7 % (0.2-1.2); Eosinophils Absolute Auto 0.1 K/mm3 (0-0.3); Eosinophils Percent Auto 3.1 % (0-4.4); Hematocrit 34.4 % (42.0-52.0); Hemoglobin 10.8 g/dL (14.0-18.0); Immature Granulocyte Absolute 0.02 K/mm3 (0.00-0.031); Immature Granulocyte Percent A 0.5 % (0-0.5); Lymphocytes Absolute Auto 1.16 K/mm3 (0.9-3.2); Lymphocytes Percent Auto 27.7 % (18.3-44.2); Mean Corpuscular HGB Conc 31.4 g/dl (32-36); Mean Corpuscular Hemoglobin 28.1 pg (26-34); Mean Corpuscular Volume 89.4 fl (80-100); Mean Platelet Volume 8.3 fl (7.4-10.4); Monocytes Absolute Auto 0.3 K/mm3 (0.1-0.6); Neutrophils Absolute Auto 2.6 K/mm3 (1.3-6.7); Platelet Count Result 214 k/mm3 (150-375); Red Blood Count 3.85 M/mm3 (4.6-6.20); Red Cell Distribution Width 14.6 % (11.5-14.5); White Blood Count 4.2 K/mm3 (4.5-10.0)
[2021-08-26 09:20] LABS: Anion Gap 4 mmol/L (8-16); Blood Urea Nitrogen 12 mg/dL (9-20); Carbon Dioxide 29 mmol/L (22-30); Chloride 102 mmol/L (98-107); Estimated CRCL calculation 108 ml/min; Estimated Glomerular Filt Rate > 60; Glucose 193 mg/dL (65-110); Potassium 4.1 mmol/L (3.4-5.0); Sodium 135 mmol/L (137-145)
--- NOTE | 2021-08-26 11:15 | PM.IMPN ---
Progress Note: A&P Assessment and Plan (1) Diabetic ulcer of right foot: Qualifiers: Diabetic foot ulcer location: toe Diabetes mellitus type: type 2 Non-pressure ulcer stage: with necrosis of bone Qualified Code(s): E11.621 - Type 2 diabetes mellitus with foot ulcer; L97.514 - Non-pressure chronic ulcer of other part of right foot with necrosis of bone Code(s): E11.621 - Type 2 diabetes mellitus with foot ulcer; L97.519 - Non-pressure chronic ulcer of other part of right foot with unspecified severity Status: Acute Assessment and Plan: Sp debridement of R foot and amputation of Right 1st digit. He has also undergone left callus removal. He tolerated this procedures well. Blood cultures no growth today. Wound culture growing Pseudomonas. Currently on Zosyn and linezolid. White count slightly decreased which could be related to the antibiotics. Continue IV antibiotics. Continue therapy. Pain control per Orthopedics. Will discuss with Orthopedic regarding how deep is the infection might need ID eval continue current IV antibiotic for now re-evaluate in a.m. monitor CBC. (2) Cellulitis of right foot: Code(s): L03.115 - Cellulitis of right lower limb Status: Acute Assessment and Plan: Secondary to Pseudomonas continue IV antibiotic for today re-evaluate in a.m. (3) Type 2 diabetes mellitus: Code(s): E11.9 - Type 2 diabetes mellitus without complications Status: Acute Assessment and Plan: Glucose remains reasonably well controlled. Continue AccuCheks covering with sliding scale. Hypoglycemia protocol available as needed. Continue to monitor. (4) Tobacco dependence: Code(s): F17.200 - Nicotine dependence, unspecified, uncomplicated Status: Chronic Assessment and Plan: Counseling Additional Plan Mood is better today denies depression. If he has a prolonged hospitalization or requiring rehab then consider SSRI treatment Subjective Date/time seen: 08/26/21 11:15 Interval history: 55-year-old male with type 2 diabetes mellitus and diabetic peripheral neuropathy who presented to the emergency department for evaluation of a worsening right foot wound. Patient feels better today wound culture was positive for Pseudomonas pansensitive Blood pressure still on the lower side has leukopenia Patient denies fever headache chest pain shortness of breath I am seeing the patient for cellulitis of the foot. Review of Systems Review of Systems: All systems reviewed & are unremarkable except as noted in HPI and below Exam Narrative: Alert Chest no wheeze crackles Abdomen nontender nondistended CVS S1 + S2 Lower extremity positive dressing Objective Data Vital Signs Vital Signs: Vital Signs - 24 hr 08/25/21 14:00 08/25/21 22:00 08/26/21 06:00 Temperature 97.6 F 96.9 F L 97.4 F L Pulse Rate 62 62 64 Respiratory Rate 18 16 16 Blood Pressure 106/58 L 104/59 L 106/61 Pulse Oximetry 100 100 100 08/26/21 09:00 Temperature Pulse Rate 68 Respiratory Rate Blood Pressure Pulse Oximetry Intake/Output Intake/Output: Intake & Output 08/23/21 08/24/21 08/25/21 08/26/21 23:59 23:59 23:59 23:59 Intake Total 1680 2170 2040 1390 Output Total 1050 1150 500 800 Balance 630 1020 1540 590 Meds/Results Medications: Active Medications Generic Name Dose Route Start Last Admin Trade Name Freq PRN Reason Stop Dose Admin Acetaminophen 650 mg 08/20/21 21:19 Acetaminophen 325 Mg Tablet PO Q6H PRN Mild Pain (1-3) or Fever Bisacodyl 10 mg 08/22/21 14:47 Bisacodyl 10 Mg Suppository RECTAL DAILY PRN Constipation Dextrose 12.5 gm 08/20/21 18:21 Dextrose 50% 25 Gm/50 Ml Syringe IV PUSH PRN PRN Hypoglycemia Protocol Famotidine 20 mg 08/21/21 09:00 08/26/21 09:00 Famotidine 20 Mg Tablet PO 20 mg DAILY LINO Administration Fentanyl Citrate 25 mcg
[2021-08-26 11:44] LABS: Glucose Point of Care 225 mg/dl (65-105)
[2021-08-26] MEDS: INSULIN ASPART (*BKC) 100 UNITS/ML SUB-Q (12:11)
[2021-08-26] MEDS: oxyCODONE/ACETAMINOPHEN (*CRX) 5-325 MG TABLET 1 TABLET PO ×2 (12:12→18:09)
--- NOTE | 2021-08-26 12:41 | PM.PNORT ---
Progress Note: A&P Additional Plan POSTOP RIGHT 1 ST RTAY AMPUTATION WITH PSEUDOMONAS CULTURE POSITIVE. CONTINUE DRESSING CHANGES NEEDED AND ABX Subjective Subjective Date/Time Seen: 08/26/21 12:41POSTOP RIGHT FOOT 1ST RAY AMPUTATION DOING WELL. NO CALF PAIN Exam Extrem: Other: VSS AFEBRILE DRESSING IS DRY AT THIS TIME. HE HAS GOOD CAP REFILL TO OTHER TOES Objective Data Vital Signs Vital Signs: Vital Signs - 24 hr 08/25/21 14:00 08/25/21 22:00 08/26/21 06:00 Temperature 36.4 C 36.1 C L 36.3 C L Pulse Rate 62 62 64 Respiratory Rate 18 16 16 Blood Pressure 106/58 L 104/59 L 106/61 Pulse Oximetry 100 100 100 08/26/21 09:00 Temperature Pulse Rate 68 Respiratory Rate Blood Pressure Pulse Oximetry Intake/Output Intake/Output: Intake & Output 08/23/21 08/24/21 08/25/21 08/26/21 23:59 23:59 23:59 23:59 Intake Total 1680 2170 2040 1390 Output Total 1050 1150 500 800 Balance 630 1020 1540 590 Meds/Results Medications: Active Medications Generic Name Dose Route Start Last Admin Trade Name Freq PRN Reason Stop Dose Admin Acetaminophen 650 mg 08/20/21 21:19 Acetaminophen 325 Mg Tablet PO Q6H PRN Mild Pain (1-3) or Fever Bisacodyl 10 mg 08/22/21 14:47 Bisacodyl 10 Mg Suppository RECTAL DAILY PRN Constipation Dextrose 12.5 gm 08/20/21 18:21 Dextrose 50% 25 Gm/50 Ml Syringe IV PUSH PRN PRN Hypoglycemia Protocol Famotidine 20 mg 08/21/21 09:00 08/26/21 09:00 Famotidine 20 Mg Tablet PO 20 mg DAILY LINO Administration Fentanyl Citrate 25 mcg 08/21/21 15:29 Fentanyl Citrate Inj (*Crx) 100 Mcg/2 Ml Vial IV PUSH Q2M PRN Pain Gabapentin 300 mg 08/20/21 21:00 08/26/21 09:01 Gabapentin 300 Mg Capsule PO 300 mg Q12HR LINO Administration Glucagon 1 mg 08/20/21 18:21 Glucagon For Inj 1 Mg Vial IM PRN PRN Hypoglycemia Protocol Glucose 15 gm 08/20/21 18:21 Glucose Oral Gel 15 Gm Of Glucse In 37.5 Gm Tube PO PRN PRN Hypoglycemia Protocol Linezolid 600 mg in 300 mls @ 300 mls/hr 08/21/21 06:00 08/26/21 07:09 Zyvox IVPB Infused Q12H LINO Infusion Piperacillin/Tazobactam/Dextrose 3.375 gm in 50 mls @ 100 mls/hr 08/21/21 00:00 08/26/21 12:10 Zosyn 3.375 Gm/D5w 50ml Pm IVPB 100 mls/hr Q6HR LINO Administration Dextrose 1,000 mls @ 100 mls/hr 08/20/21 18:21 Dextrose 5% 1,000 Ml IVPB PRN PRN Hypoglycemia Protocol Insulin Aspart 3 - 6 units 08/21/21 08:00 08/26/21 12:11 Insulin Aspart (*Bkc) 100 Units/Ml SUB-Q 3 units TIDWM LINO Administration Protocol Metoprolol Tartrate 25 mg 08/21/21 09:00 08/26/21 09:00 Metoprolol Tartrate 25 Mg Tablet PO 25 mg DAILY LINO Administration Miscellaneous Information 0 each 08/20/21 00:01 08/24/21 11:47 Victoza Is Nonformulary - Can Patient Bring From Home? XX 09/19/21 00:00 Not Given [facility] Morphine Sulfate 4 mg 08/20/21 17:16 Morphine Sulfate (*Crx) 4 Mg/Ml Inj IV PUSH Q2H PRN Pain Rated 7-10 Non-Formulary Medication 0.6 mg 08/21/21 09:00 Liraglutide [Victoza 2-Desean] SUB-Q 09/20/21 08:59 DAILY [facility] Ondansetron HCl 4 mg 08/20/21 17:16 Ondansetron Inj 4 Mg/2 Ml Vial IV PUSH Q4H PRN Nausea Oxycodone/Acetaminophen 1 tablet 08/21/21 13:46 08/26/21 12:12 Oxycodone/Acetaminophen (*Crx) 5-325 Mg Tablet PO 1 tablet Q4H PRN Administration Pain Rated 7-10 Polyethylene Glycol 17 gm 08/23/21 09:00 08/26/21 09:04 Polyethylene Glycol 3350 17 Gm Powd.Pack PO Not Given QAM [facility] Senna/Docusate Sodium 2 tab 08/22/21 17:00 08/26/21 09:04 Senna/Docusate Sodium Tablet PO Not Given BID LINO Radiology Results: ITS Impressions Chest X-Ray 08/20/21 16:16 IMPRESSION: No active cardiopulmonary disease Dextro scoliosis and degenerative spurring of the thoracic spine Foot X-Ray 08/20/21 16
[2021-08-26 14:00] VITALS: BP 110/62; PULSE 74; RESP 14; TEMP 36.6; O2SAT 100
[2021-08-26 16:57] LABS: Glucose Point of Care 151 mg/dl (65-105)
[2021-08-26] MEDS: LINEZOLID 600 MG/300 ML 600 MG/300 ML SOLN 150 MG IVPB (18:09)
[2021-08-26 20:15] LABS: Glucose Point of Care 214 mg/dl (65-105)
[2021-08-26 22:00] VITALS: BP 109/68; PULSE 72; RESP 16; TEMP 36.2; O2SAT 100
[2021-08-27] MEDS: LINEZOLID 600 MG/300 ML 600 MG/300 ML SOLN 150 MG IVPB (05:31)
[2021-08-27 05:49] VITALS: BP 111/65; PULSE 60; RESP 16; TEMP 36.1; O2SAT 100
--- NOTE | 2021-08-27 06:39 | PC.NURSE ---
Mr Webster was very unhappy when I woke him up an hour ago to give him his IV medications, cursing, and wanting to wait until later. I told him he had other medications scheduled for later. I ran his Zosyn, and started his Linezolid. I just went back in to check on the progress and the patient had turned off his IV, and none of it had infused. I restarted the IV medication.
[2021-08-27 07:36] LABS: Glucose Point of Care 197 mg/dl (65-105)
[2021-08-27 09:08] VITALS: PULSE 84
[2021-08-27] MEDS: GABAPENTIN 300 MG CAPSULE PO ×2 (09:08→21:04)
[2021-08-27] MEDS: METOPROLOL TARTRATE 25 MG TABLET PO (09:08)
[2021-08-27] MEDS: FAMOTIDINE 20 MG TABLET PO (09:08)
--- NOTE | 2021-08-27 10:51 | PM.IMPN ---
Progress Note: A&P Assessment and Plan (1) Diabetic ulcer of right foot: Qualifiers: Diabetic foot ulcer location: toe Diabetes mellitus type: type 2 Non-pressure ulcer stage: with necrosis of bone Qualified Code(s): E11.621 - Type 2 diabetes mellitus with foot ulcer; L97.514 - Non-pressure chronic ulcer of other part of right foot with necrosis of bone Code(s): E11.621 - Type 2 diabetes mellitus with foot ulcer; L97.519 - Non-pressure chronic ulcer of other part of right foot with unspecified severity Status: Acute Assessment and Plan: Sp debridement of R foot and amputation of Right 1st digit. He has also undergone left callus removal. He tolerated this procedures well. Blood cultures no growth today. Wound culture growing Pseudomonas. Currently on Zosyn and linezolid. White count slightly decreased which could be related to the antibiotics. Continue IV antibiotics. Continue therapy. Pain control per Orthopedics. I discussed with the on-call orthopedic surgeon today regarding how deep is the infection might need ID eval continue current IV antibiotic for now re-evaluate in a.m. pending orthopedic surgery evaluation in a.m. If no evidence of deep infection patient can be discharged on Cipro 750 mg p.o. twice a day for total of 14 days check ECG before discharge from the time of surgery if patient need IV antibiotics will follow orthopedic recommendation (2) Cellulitis of right foot: Code(s): L03.115 - Cellulitis of right lower limb Status: Acute Assessment and Plan: Secondary to Pseudomonas continue IV antibiotic for today re-evaluate in a.m. as above (3) Type 2 diabetes mellitus: Code(s): E11.9 - Type 2 diabetes mellitus without complications Status: Acute Assessment and Plan: Glucose remains reasonably well controlled. Continue AccuCheks covering with sliding scale. Hypoglycemia protocol available as needed. Continue to monitor. (4) Tobacco dependence: Code(s): F17.200 - Nicotine dependence, unspecified, uncomplicated Status: Chronic Assessment and Plan: Counseling Additional Plan Mood is better today denies depression. If he has a prolonged hospitalization or requiring rehab then consider SSRI treatment Subjective Date/time seen: 08/27/21 10:51 Interval history: 55-year-old male with type 2 diabetes mellitus and diabetic peripheral neuropathy who presented to the emergency department for evaluation of a worsening right foot wound. Patient feels better today wound culture was positive for Pseudomonas pansensitive I discussed with Dr. castro plan for dressing change in a.m. patient will need possibly IV antibiotics but Dr. castro will deferr to the surgeon who performed the surgery Plan for patient to be re-evaluated by his surgeon in a.m. regarding the duration and the form of antibiotics IV versus oral Patient denies fever headache chest pain shortness of breath I am seeing the patient for cellulitis of the foot. Exam Narrative: Alert Chest no wheeze crackles Abdomen nontender nondistended CVS S1 + S2 Lower extremity positive dressing Objective Data Vital Signs Vital Signs: Vital Signs - 24 hr 08/26/21 14:00 08/26/21 22:00 08/27/21 05:49 Temperature 97.8 F 97.2 F L 96.9 F L Pulse Rate 74 72 60 Respiratory Rate 14 16 16 Blood Pressure 110/62 109/68 111/65 Pulse Oximetry 100 100 100 08/27/21 09:08 Temperature Pulse Rate 84 Respiratory Rate Blood Pressure Pulse Oximetry Intake/Output Intake/Output: Intake & Output 08/24/21 08/25/21 08/26/21 08/27/21 23:59 23:59 23:59 23:59 Intake Total 2170 2040 2770 1190 Output Total 1150 500 800 940 Balance 1020 1540 1970 250 Meds/Results Medications: Active Medications Generic Name Dose Route Start Last Admin Trade Name Freq PRN Reason Stop Dose Admin Acetaminophen 650 mg 08/20/21 21:19 Acetaminophen 325 Mg Tablet PO
--- NOTE | 2021-08-27 10:56 | ECG_ITS ---
Measurements Intervals [place] Rate: 56 P: 41 MN: 177 QRS: 9 QRSD: 100 T: 46 QT: 362 QTc: 350 Interpretive Statements SINUS BRADYCARDIA LOW QRS VOLTAGE IN PRECORDIAL LEADS [QRS DEFLECTION < 1.0 mV IN CHEST LEADS] OTHERWISE UNREMARKABLE ECG COMPARED TO ECG 06/20/2021 05:37:08 SINUS RHYTHM REPLACES ATRIAL FIBRILLATION Electronically Signed On 08-27-2021 20:48:58 CDT by Ryley Casillas M.D.
[2021-08-27] MEDS: INSULIN ASPART (*BKC) 100 UNITS/ML SUB-Q (11:58)
[2021-08-27 12:04] LABS: Glucose Point of Care 226 mg/dl (65-105)
--- NOTE | 2021-08-27 13:47 | PM.PNORT ---
Progress Note: A&P Additional Plan POSTOP DOING WELL. CONT DRESSING CHANGES. CONT CURRENT TREATMENT REGIMEN Subjective Subjective Date/Time Seen: 08/27/21 13:47 Subjective Date/Time Seen: 08/26/21 12:41POSTOP RIGHT FOOT 1ST RAY AMPUTATION DOING WELL. NO CALF PAIN Exam Extrem: Other: VSS AFEBRILE DRESSING IS DRY AT THIS TIME. HE HAS GOOD CAP REFILL TO OTHER TOES Objective Data Vital Signs Vital Signs: Vital Signs - 24 hr 08/26/21 14:00 08/26/21 22:00 08/27/21 05:49 Temperature 36.6 C 36.2 C L 36.1 C L Pulse Rate 74 72 60 Respiratory Rate 14 16 16 Blood Pressure 110/62 109/68 111/65 Pulse Oximetry 100 100 100 08/27/21 09:08 Temperature Pulse Rate 84 Respiratory Rate Blood Pressure Pulse Oximetry Intake/Output Intake/Output: Intake & Output 08/24/21 08/25/21 08/26/21 08/27/21 23:59 23:59 23:59 23:59 Intake Total 2170 2040 2770 1190 Output Total 1150 500 800 940 Balance 1020 1540 1970 250 Meds/Results Medications: Active Medications Generic Name Dose Route Start Last Admin Trade Name Freq PRN Reason Stop Dose Admin Acetaminophen 650 mg 08/20/21 21:19 Acetaminophen 325 Mg Tablet PO Q6H PRN Mild Pain (1-3) or Fever Bisacodyl 10 mg 08/22/21 14:47 Bisacodyl 10 Mg Suppository RECTAL DAILY PRN Constipation Dextrose 12.5 gm 08/20/21 18:21 Dextrose 50% 25 Gm/50 Ml Syringe IV PUSH PRN PRN Hypoglycemia Protocol Famotidine 20 mg 08/21/21 09:00 08/27/21 09:08 Famotidine 20 Mg Tablet PO 20 mg DAILY LINO Administration Fentanyl Citrate 25 mcg 08/21/21 15:29 Fentanyl Citrate Inj (*Crx) 100 Mcg/2 Ml Vial IV PUSH Q2M PRN Pain Gabapentin 300 mg 08/20/21 21:00 08/27/21 09:08 Gabapentin 300 Mg Capsule PO 300 mg Q12HR LINO Administration Glucagon 1 mg 08/20/21 18:21 Glucagon For Inj 1 Mg Vial IM PRN PRN Hypoglycemia Protocol Glucose 15 gm 08/20/21 18:21 Glucose Oral Gel 15 Gm Of Glucse In 37.5 Gm Tube PO PRN PRN Hypoglycemia Protocol Piperacillin/Tazobactam/Dextrose 3.375 gm in 50 mls @ 100 mls/hr 08/21/21 00:00 08/27/21 11:55 Zosyn 3.375 Gm/D5w 50ml Pm IVPB 100 mls/hr Q6HR LINO Administration Dextrose 1,000 mls @ 100 mls/hr 08/20/21 18:21 Dextrose 5% 1,000 Ml IVPB PRN PRN Hypoglycemia Protocol Insulin Aspart 3 - 6 units 08/21/21 08:00 08/27/21 11:58 Insulin Aspart (*Bkc) 100 Units/Ml SUB-Q 3 units TIDWM LINO Administration Protocol Metoprolol Tartrate 25 mg 08/21/21 09:00 08/27/21 09:08 Metoprolol Tartrate 25 Mg Tablet PO 25 mg DAILY LINO Administration Miscellaneous Information 0 each 08/20/21 00:01 08/24/21 11:47 Victoza Is Nonformulary - Can Patient Bring From Home? XX 09/19/21 00:00 Not Given [facility] Morphine Sulfate 4 mg 08/20/21 17:16 Morphine Sulfate (*Crx) 4 Mg/Ml Inj IV PUSH Q2H PRN Pain Rated 7-10 Non-Formulary Medication 0.6 mg 08/21/21 09:00 Liraglutide [Victoza 2-Desean] SUB-Q 09/20/21 08:59 DAILY [facility] Ondansetron HCl 4 mg 08/20/21 17:16 Ondansetron Inj 4 Mg/2 Ml Vial IV PUSH Q4H PRN Nausea Oxycodone/Acetaminophen 1 tablet 08/21/21 13:46 08/26/21 18:09 Oxycodone/Acetaminophen (*Crx) 5-325 Mg Tablet PO 1 tablet Q4H PRN Administration Pain Rated 7-10 Polyethylene Glycol 17 gm 08/23/21 09:00 08/27/21 09:09 Polyethylene Glycol 3350 17 Gm Powd.Pack PO Not Given QAM [facility] Senna/Docusate Sodium 2 tab 08/22/21 17:00 08/27/21 09:07 Senna/Docusate Sodium Tablet PO Not Given BID [facility] Radiology Results: ITS Impressions Chest X-Ray 08/20/21 16:16 IMPRESSION: No active cardiopulmonary disease Dextro scoliosis and degenerative spurring of the thoracic spine Foot X-Ray 08/20/21 16:17 IMPRESSION: Soft tissue ulceration at medial aspect of first metatarsal head Obliteration of first metatarsal ph
--- NOTE | 2021-08-27 13:50 | PCOTNOTE ---
Addendum entered by DIANA Roth 08/27/21 13:56: Attempted to see pt for occupational therapy tx, however, pt refused. Pt states I don't need this fucking therapy...I need to go home . Pt declined to perform any exercises stating I don't need this... and states he already completed self care tasks. When pt was educated on the benefits of continued therapy for increase independence with daily occupations, pt continued to refuse and was argumentative, cussing out to staff, and frustrated with lack of communication with staff in regards to timeline of d/c. Will continue per poc duration/frequency tomorrow. Original Note: Attempted to see pt for occupational therapy tx, however, pt refused. Pt states I don't need this fucking therapy...I need to go home . When pt was educated on the benefits of continued therapy for increase independence with daily occupations, pt continued to refuse and was argumentative and frustrated with lack of communication with staff in regards to timeline of d/c. Will continue per poc duration/frequency tomorrow.
[2021-08-27 14:00] VITALS: BP 98/61; PULSE 72; RESP 18; TEMP 36.3; O2SAT 98
[2021-08-27 17:00] LABS: Glucose Point of Care 148 mg/dl (65-105)
[2021-08-27 20:17] LABS: Glucose Point of Care 214 mg/dl (65-105)
[2021-08-27 21:42] VITALS: BP 114/66; PULSE 70; RESP 18; TEMP 36.3; O2SAT 99
--- NOTE | 2021-08-27 23:47 | PC.NURSE ---
I went in to hang Mr. Webster's antibiotics. He had his head covered up, but was wiggling his feet. I asked to scan his armband. He wanted to know what for. I told him for his antibiotics that I told him earlier I would be bringing in at midnight. He said, GD, F*$k, I don't want any antibiotics. I did not hang them.
[2021-08-28 06:00] VITALS: BP 117/63; PULSE 62; RESP 18; TEMP 36.2; O2SAT 100
[2021-08-28 08:07] LABS: Glucose Point of Care 145 mg/dl (65-105)
--- NOTE | 2021-08-28 08:32 | PCNWS ---
Weekly nutritional screen. Patient is tolerating current diet with adequate intake. No weight loss reported. No nutritional needs at this time.
[2021-08-28 09:21] VITALS: PULSE 80
[2021-08-28] MEDS: FAMOTIDINE 20 MG TABLET PO (09:21)
[2021-08-28] MEDS: GABAPENTIN 300 MG CAPSULE PO (09:21)
[2021-08-28] MEDS: METOPROLOL TARTRATE 25 MG TABLET PO (09:21)
[2021-08-28] MEDS: oxyCODONE/ACETAMINOPHEN (*CRX) 5-325 MG TABLET 1 TABLET PO (09:27)
[2021-08-28 11:45] LABS: Glucose Point of Care 136 mg/dl (65-105)
--- NOTE | 2021-08-28 12:48 | PM.DS ---
DS: Admitting Diagnosis Discharge Date 08/28/21 Admitting Diagnosis Worsening right foot wound DS: Discharge Diagnosis Discharge Diagnosis (1) Diabetic ulcer of right foot: Qualifiers: Diabetic foot ulcer location: toe Diabetes mellitus type: type 2 Non-pressure ulcer stage: with necrosis of bone Qualified Code(s): E11.621 - Type 2 diabetes mellitus with foot ulcer; L97.514 - Non-pressure chronic ulcer of other part of right foot with necrosis of bone Code(s): E11.621 - Type 2 diabetes mellitus with foot ulcer; L97.519 - Non-pressure chronic ulcer of other part of right foot with unspecified severity Status: Acute Assessment and Plan: Patient presents with worsening right foot wound. He was seen by orthopedics and is now status post debridement of R foot and amputation of Right 1st digit on 08/22. He also had left callus removal. He tolerated these procedures well. Blood cultures negative. Wound culture growing Pseudomonas that is pansensitive. Treated with Zosyn and linezolid on admission. White count slightly decreased which could be related to the antibiotics. Therapy started. Pain management per Orthopedics. Spoke with Ortho who felt less likely infected and more necrotic. ECG before discharge showing normal QTc. Plan for home on Cipro 500 mg p.o. twice a day for total of 14 days. (2) Cellulitis of right foot: Code(s): L03.115 - Cellulitis of right lower limb Status: Acute Assessment and Plan: Secondary to Pseudomonas treated with IV Zosyn. As above (3) Type 2 diabetes mellitus: Code(s): E11.9 - Type 2 diabetes mellitus without complications Status: Acute Assessment and Plan: A1c 6.1. Glucose was monitored closely with AccuCheks covering with sliding scale. Hypoglycemia protocol was available as needed. (4) Tobacco dependence: Code(s): F17.200 - Nicotine dependence, unspecified, uncomplicated Status: Chronic Assessment and Plan: Patient was educated about the benefits of smoking cessation. DS: Summary Hospital Course Reason for hospitalization: 55-year-old male with type 2 diabetes mellitus and diabetic peripheral neuropathy who presented to the emergency department for evaluation of a worsening right foot wound. Please see H&P for details Hospital Course: Please see above for details of hospital course. Status at Discharge Cognitive/behavioral status at discharge: Stable Time Spent with Patient Time attestation: Total time spent providing and/or coordinating discharge services: 38 minutes Time spent: Greater than 30 minutes Exam Narrative: AF 97.1 117/63 80 18 100% ra Gen - NARD Chest - CTA bilaterally, nml RR. Chest wall scars noted and has healed well. CV - RRR S1/S2 Abd - Soft, NT/ND, Positive BS Ext - No left pedal edema. Right ankle and foot is wrapped and in a boot. Psych -normal mood and affect. Patient requesting discharge. Skin -left distal plantar quarter-sized callus has been removed overlying the 4th metatarsal head. No bleeding. DS: Data Data Completed and Pending Completed studies during hospitalization: Pending at discharge 08/22/21 12:40 Surgical [PTH] Routine Labs on day of discharge: Labs from last 24 hours 08/28/21 08/28/21 08/27/21 11:38 07:57 20:14 POC Capillary Glucose 136 H 145 H 214 H 08/27/21 16:41 POC Capillary Glucose 148 H Discharge Plan Discharge Attending physician on discharge: Abdifatah Reyes Consulting providers: Homer Alvarez Discharging Clinician: Abdifatah Reyes Anticipated Discharge Date/Time: 08/28/21 12:57 Patient Disposition: Home, Self-Care Activity: other - see discharge instructions Diet: diabetic Discharge Instructions: Activity instructions per Orthopedics. Please avoid large gathering, wear face coverings in public and practice social distance. Please check glucose b
== END 2021-08-28 15:02 | disposition home or self-care (01) | DRG 314 ==
LOC: ANHED 17:46 → ANH3MEDSUR 08-21 00:12
PROVIDERS: Family Medicine; Internal Medicine; Nurse Practitioner Family; Orthopaedic Surgery; Physician Assistant; Admitting Provider Family Medicine; Emergency Provider Emergency Medicine; PCP Internal Medicine Infectious Disease; Visit Provider Internal Medicine
PROC: 0Y6P0Z1 Detachment at Right 1st Toe, High, Open Approach (ICD-10-PCS; principal; 2021-08-22 12:00)
DX: E11.69 Type 2 diabetes mellitus with other specified complication (principal); M86.171 Other acute osteomyelitis, right ankle and foot; B96.5 Pseudomonas (aeruginosa) (mallei) (pseudomallei) as the cause of diseases classified elsewhere; E11.621 Type 2 diabetes mellitus with foot ulcer; L97.514 Non-pressure chronic ulcer of other part of right foot with necrosis of bone; L97.429 Non-pressure chronic ulcer of left heel and midfoot with unspecified severity; L03.031 Cellulitis of right toe; I96 Gangrene, not elsewhere classified; M00.262 Other streptococcal arthritis, left knee; L84 Corns and callosities; E11.42 Type 2 diabetes mellitus with diabetic polyneuropathy; M19.019 Primary osteoarthritis, unspecified shoulder; F17.210 Nicotine dependence, cigarettes, uncomplicated; Z79.84 Long term (current) use of oral hypoglycemic drugs
CPT/HCPCS: 36415; 71045; 73630; 80048; 80053; 82948; 83036; 85025; 85027; 85610; 85730; 86140; 87040; 87070; 87075; 87077; 87186; 87205; 88305; 88311; 93005; 96365; 97110; 97161; 97165; 97530; 97535; 99285; A9270; J1815; J2020; J2250; J2370; J2405; J2543; J2704; J3010; J3370; J7030; J7120; L2116

== ENCOUNTER 2021-11-03 07:26 | Outpatient (RCR) | payer BC, SELFPAY ==
--- NOTE | 2021-08-29 11:13 | PCWOUND ---
Addendum entered by Marguerite Lewis RN 08/31/21 07:35: Ulcers to the right medial and lateral foot had a moderate amount of serosanginous exudate present. Xeroform gauze was placed over both wounds, covered with dry gauze and wrapped with kerlex, secured dressing in place with medipore tape. No discomfort with care noted with dressing change. Original Note: WOCN NOTE Patient with a incision with sutures where right 1st toe was amputated due to a full thickness diabetic ulcer. Incision line is a V shape, measurements of incision are 12.5cm in length by 2.0cm in width by 0.2cm in depth. There is a small full thickness diabetic ulcer to the lateral aspect of the right foot that measures 2.0cm in length by 1.0cm in width by 0.2cm in depth. Ulcer was also surgically debrided in the OR on 08/22/21. No s/s of infection noted to the surrounding tissue. Received orders to cover the incision line and lateral foot ulcer with Xeroform gauze to provide topical antimicrobial coverage to help keep incision together, then covered with gauze and wrap with kerlex. Patient to perform daily dressing changes for at least 3 months or until all wounds are healed. Patient will be seen in the wound center on 09/12/21.
[2021-09-15 10:04] VITALS: BMI 30.8
--- NOTE | 2021-09-15 10:49 | PM.IMHP ---
H&P: HPI History of Present Illness Date/Time: 09/15/21 0900 Chief Complaint: Right foot ulcer Narrative: 55-year-old male follows up in the [facility] wound clinic today for re-evaluation of right great toe amputation and left diabetic foot ulcer debridement. Patient is 3 weeks, 3 days postop. He has completed a course of IV and oral antibiotics. He completed his oral antibiotics on September 12, 2021. No new concerns today aside from increased swelling in the left lower extremity. No new wounds to note of the left foot. Review of Systems Review of Systems: All systems reviewed & are unremarkable except as noted in HPI and below PMFSH Past Medical History Medical History Amphetamine abuse Patient is vague as to how often he uses. Amputation toe Bacteremia due to Streptococcus pneumoniae (06/2021) With septic left knee and anterior chest abscess. Burn erythema of left lower leg Diabetic peripheral neuropathy Gangrene of right foot History of MRSA infection Hypercholesterolemia Left leg swelling Obesity Polysubstance abuse Including methamphetamines and marijuana. Smoking Tobacco dependence Type 2 diabetes mellitus Hemoglobin A1c was 6.1% on 08/20/2021. Surgical History Surgical History History of carpal tunnel release (~09/07/20) Left-sided per Dr. Escobedo. History of colonoscopy (~10/2008) Negative aside from internal hemorrhoidal tissue per Dr. Damico. History of incision and drainage (10/04/20) -Complex incision and drainage of right diabetic foot ulcer per Dr. Zhao on 10/04/2020. -Incision and drainage of complicated sternal abscess on 06/26/[address] Ramirez. -Incision and drainage of left knee joint and debridement of right foot 1st ray wound on 06/28/[address] Alvarez. - Extensive incision and drainage of an anterior chest abscess at [facility]. Status post debridement (~12/21/19) Excisional debridement of skin, subcutaneous tissue, and muscle of a 4 cm2 ulcer of the plantar surface of the right foot with removal foreign body under fluoroscopy per Dr. Raymundo. Family History Family History Other Carcinoma of colon Diabetes mellitus Social History Social History Social History: Surrogate decision maker: Maxwell Webster, spouse. Code status: Full code. Smoking packs per day: 1 Smoking cigarettes per day: 20.0 Years smoked: 20 Smoking pack-years: 20.00 Smoking status: Current every day smoker Tobacco type: cigarettes Second hand tobacco smoke exposure: No Alcohol intake: current Drinks per week: 5 Alcohol use details: Drinks several alcoholic beverages a month. Substance use: never Substance use type: does not use Other substance usage details: Previous history of methamphetamine use. Additional living arrangements comments: Lives in [place] with his spouse. Additional occupation/education comments: Unemployed. Spiritual care concerns: No Meds Home Medications and Allergies Home Medications Medication Instructions Recorded Confirmed Type metformin 500 mg PO BID #60 tablet 04/20/21 09/15/21 Rx Victoza 2-Desean 0.6 mg SUBCUT DAILY 08/20/21 09/15/21 History famotidine 20 mg PO DAILY 08/20/21 09/15/21 History gabapentin 300 mg PO BID 08/20/21 09/15/21 History insulin lispro See Protocol SUBCUT ACHS 08/20/21 09/15/21 History metoprolol tartrate 25 mg PO DAILY 08/20/21 09/15/21 History oxycodone-acetaminophen 1 tablet PO Q4H PRN #20 tablet 08/25/21 09/15/21 Rx ciprofloxacin HCl [Cipro] 500 mg PO Q12H #13 tablet 08/28/21 Rx Allergies Allergy/AdvReac Type Severity Reaction Status Date / Time vancomycin AdvReac Other Verified 08/20/21 18:15 Exam Const: General: cooperative Nutritional Appearance: average body habitus Orientat
--- NOTE | 2021-09-26 09:37 | PM.IMHP ---
H&P: [facility] History of Present Illness Date/Time: 09/26/21 09:37 Chief Complaint: Right Foot Post Op Wound Dehiscence Narrative: 56-year-old male follows up in the [facility] wound clinic today for re-evaluation of right great toe amputation and left diabetic foot ulcer debridement. Patient is 5 weeks postop. He has completed a course of IV and oral antibiotics. He completed his oral antibiotics on September 12, 2021. No new concerns today. Performing home dressing changes without complication. Review of Systems Review of Systems: All systems reviewed & are unremarkable except as noted in HPI and below PMFSH Past Medical History Medical History Amphetamine abuse Patient is vague as to how often he uses. Amputation toe Bacteremia due to Streptococcus pneumoniae (06/2021) With septic left knee and anterior chest abscess. Burn erythema of left lower leg Diabetic peripheral neuropathy Gangrene of right foot History of MRSA infection Hypercholesterolemia Left leg swelling Obesity Polysubstance abuse Including methamphetamines and marijuana. Smoking Tobacco dependence Type 2 diabetes mellitus Hemoglobin A1c was 6.1% on 08/20/2021. Surgical History Surgical History History of carpal tunnel release (~09/07/20) Left-sided per Dr. Escobedo. History of colonoscopy (~10/2008) Negative aside from internal hemorrhoidal tissue per Dr. Damico. History of incision and drainage (10/04/20) -Complex incision and drainage of right diabetic foot ulcer per Dr. Zhao on 10/04/2020. -Incision and drainage of complicated sternal abscess on 06/26/[address] Ramirez. -Incision and drainage of left knee joint and debridement of right foot 1st ray wound on 06/28/[address] Alvarez. - Extensive incision and drainage of an anterior chest abscess at [facility] Status post debridement (~12/21/19) Excisional debridement of skin, subcutaneous tissue, and muscle of a 4 cm2 ulcer of the plantar surface of the right foot with removal foreign body under fluoroscopy per Dr. Raymundo. Family History Family History Other Carcinoma of colon Diabetes mellitus Social History Social History Social History: Surrogate decision maker: Maxwell Webster, spouse. Code status: Full code. Smoking packs per day: 1 Smoking cigarettes per day: 20.0 Years smoked: 20 Smoking pack-years: 20.00 Smoking status: Current every day smoker Tobacco type: cigarettes Second hand tobacco smoke exposure: No Alcohol intake: current Drinks per week: 5 Alcohol use details: Drinks several alcoholic beverages a month. Substance use: never Substance use type: does not use Other substance usage details: Previous history of methamphetamine use. Additional living arrangements comments: Lives in [place] with his spouse. Additional occupation/education comments: Unemployed. Spiritual care concerns: No Meds Home Medications and Allergies Home Medications Medication Instructions Recorded Confirmed Type metformin 500 mg PO BID #60 tablet 04/20/21 09/15/21 Rx Victoza 2-Desean 0.6 mg SUBCUT DAILY 08/20/21 09/15/21 History famotidine 20 mg PO DAILY 08/20/21 09/15/21 History gabapentin 300 mg PO BID 08/20/21 09/15/21 History insulin lispro See Protocol SUBCUT ACHS 08/20/21 09/15/21 History metoprolol tartrate 25 mg PO DAILY 08/20/21 09/15/21 History oxycodone-acetaminophen 1 tablet PO Q4H PRN #20 tablet 08/25/21 09/15/21 Rx ciprofloxacin HCl [Cipro] 500 mg PO Q12H #13 tablet 08/28/21 Rx Allergies Allergy/AdvReac Type Severity Reaction Status Date / Time vancomycin AdvReac Other Verified 08/20/21 18:15 Exam Const: General: cooperative Nutritional Appearance: average body habitus Orientation/consciousness: patient orient
--- NOTE | 2021-10-03 09:24 | PCWOUND ---
WOCN NOTE patient did not show up for appointment or call.
--- NOTE | 2021-10-06 09:25 | PM.IMHP ---
H&P: [facility] History of Present Illness Date/Time: 10/06/21 09:25 Chief Complaint: Chief Complaint: Right Foot Post Op Wound Dehiscence Narrative: Chief Complaint: Right Foot Post Op Wound Dehiscence, DFU, Osteomyelitis Narrative: 56-year-old male follows up in the [place] wound clinic today for re-evaluation of right first ray amputation and left diabetic foot ulcer debridement. Patient is 6 weeks postop. He has completed a course of IV and oral antibiotics. He completed his oral antibiotics on September 12, 2021. More swelling/ redness today. Performing home dressing changes with janine/ packing gauze. Review of Systems Review of Systems: All systems reviewed & are unremarkable except as noted in HPI and below Constitutional: Constitutional: Denies body ache(s), Denies chills, Denies excessive sweating, Denies fatigue, Denies fever(s), Denies headache(s), Denies lethargy, Denies malaise, Denies weakness and Denies weight loss Eyes: Eyes: Denies blurry vision, Denies change in vision and Denies loss of vision ENT: Denies dizziness, Denies ear discharge, Denies headache(s), Denies lip swelling, Denies epistaxis, Denies nasal congestion, Denies neck pain, Denies throat swelling and Denies tongue swelling Cardiovascular: Cardiovascular: Denies chest pain, Denies chest pain at rest, Denies chest pain with activity, Denies diaphoresis, Denies rapid heart rate, Denies edema, Denies irregular heart rhythm, Denies lightheadedness, Denies palpitations, Denies dyspnea and Denies dyspnea on exertion Respiratory: Respiratory: Denies chest congestion, Denies cough, Denies hemoptysis, Denies dyspnea and Denies dyspnea on exertion Gastrointestinal: Gastrointestinal: Denies abdominal pain, Denies melena, Denies hematochezia, Denies diarrhea, Denies vomiting and Denies hematemesis Musculoskeletal: Musculoskeletal: Denies abnormal gait, Denies deformity, Denies joint swelling, Denies limited range of motion, Denies neck pain and Denies numbness Neurologic: Denies Abnormal speech present, Denies abnormal gait, Denies confusion, Denies dizziness, Denies headache(s), Denies focal weakness, Denies loss of vision, Denies numbness, Denies Other visual disturbances, Denies Sensory deficit (Neuro) and Denies weakness Psychiatric: Psychiatric: Denies confusion, Denies depression, Denies auditory hallucinations, Denies homicidal ideation and Denies suicidal ideation Endocrine: Endocrine: Denies cold intolerance, Denies excessive sweating, Denies fatigue, Denies heat intolerance and Denies palpitations Hematologic/Lymphatic: Hematologic/Lymphatic: Denies easy bleeding and Denies easy bruising Allergic/Immunologic: Allergic/Immunologic: Denies lip swelling, Denies throat swelling and Denies tongue swelling PMF Past Medical History Medical History Amphetamine abuse Patient is vague as to how often he uses. Amputation toe Bacteremia due to Streptococcus pneumoniae (06/2021) With septic left knee and anterior chest abscess. Burn erythema of left lower leg Diabetic peripheral neuropathy Gangrene of right foot History of MRSA infection Hypercholesterolemia Left leg swelling Obesity Polysubstance abuse Including methamphetamines and marijuana. Smoking Tobacco dependence Type 2 diabetes mellitus Hemoglobin A1c was 6.1% on 08/20/2021. Surgical History Surgical History History of carpal tunnel release (~09/07/20) Left-sided per Dr. Escobedo. History of colonoscopy (~10/2008) Negative aside from internal hemorrhoidal tissue per Dr. Damico. History of incision and drainage (10/04/20) -Complex incision and drainage of right diabetic foot ulcer per Dr. Zhao on 10/04/2020. -Incision and drainage of complicated sternal abscess on 06/26/[address] Ramirez. -Incision and drainage of left knee joint and debridement of right foot 1st ray wound on 06/28/[address] Maxwell
--- NOTE | 2021-10-10 12:35 | PCWOUND ---
WOCN NOTE Patient was seen on Saturday10/06/2021 for 2 full thickness diabetic ulcers on the right foot. Patient had 1st hallux amputated approximately 7 weeks ago. The medial and and larger ulcer is on the medial aspect of foot that measures 5.5cm in length by 3.5cm in width by 3.0cm in depth. The plantar ulcer measures 1.0cm in length by1.0cm in width by 1.4cm in depth. No communication between the 2 ulcers. No s/s of infection noted to the surrounding tissue. A moderate amount of serosanginous exudate present from wounds, wound beds are 100% healthy red tissue. Patient to perform daily dressing changes. A thin layer of Silver gel applied to the wound beds for topical antimicrobial coverage and autolytic debridement of yellow slough, then lightly pack both wounds with 1/4 inch plain Nugauze ribbon rope, cover with dry gauze 4x4 pads and wrap with gauze rolls. Dressing was applied with minimal discomfort with care. Dressings to be changed for a duration of at least 3 months or until wound heals. Patient is followed every 2-3 weeks for evaluation and treatment of ulcers.
--- NOTE | 2021-10-20 11:01 | PM.IMHP ---
H&P: H[facility] History of Present Illness Date/Time: 10/20/21 11:01 Chief Complaint: right foot 1st ray osteomyelitis, wound dehiscence Narrative: Chief Complaint: Right Foot Post Op Wound Dehiscence, DFU, Osteomyelitis. 56-year-old male follows up in the [facility] wound clinic today for re-evaluation of right first ray amputation and left diabetic foot ulcer debridement. Patient is 8 weeks postop. He has completed a course of IV and oral antibiotics. He completed his oral antibiotics on September 12, 2021. Less swelling/ redness today. Performing home dressing changes with janine/ packing gauze, silver gel. Review of Systems Review of Systems: All systems reviewed & are unremarkable except as noted in HPI and below Constitutional: Constitutional: Denies body ache(s), Denies chills, Denies excessive sweating, Denies fatigue, Denies fever(s), Denies headache(s), Denies lethargy, Denies malaise, Denies weakness and Denies weight loss Eyes: Eyes: Denies blurry vision, Denies change in vision and Denies loss of vision ENT: Denies dizziness, Denies ear discharge, Denies headache(s), Denies lip swelling, Denies epistaxis, Denies nasal congestion, Denies neck pain, Denies throat swelling and Denies tongue swelling Cardiovascular: Cardiovascular: Denies chest pain, Denies chest pain at rest, Denies chest pain with activity, Denies diaphoresis, Denies rapid heart rate, Denies edema, Denies irregular heart rhythm, Denies lightheadedness, Denies palpitations, Denies dyspnea and Denies dyspnea on exertion Respiratory: Respiratory: Denies chest congestion, Denies cough, Denies hemoptysis, Denies dyspnea and Denies dyspnea on exertion Gastrointestinal: Gastrointestinal: Denies abdominal pain, Denies melena, Denies hematochezia, Denies diarrhea, Denies vomiting and Denies hematemesis Musculoskeletal: Musculoskeletal: Denies abnormal gait, Denies deformity, Denies joint swelling, Denies limited range of motion, Denies neck pain and Denies numbness Neurologic: Denies Abnormal speech present, Denies abnormal gait, Denies confusion, Denies dizziness, Denies headache(s), Denies focal weakness, Denies loss of vision, Denies numbness, Denies Other visual disturbances, Denies Sensory deficit (Neuro) and Denies weakness Psychiatric: Psychiatric: Denies confusion, Denies depression, Denies auditory hallucinations, Denies homicidal ideation and Denies suicidal ideation Endocrine: Endocrine: Denies cold intolerance, Denies excessive sweating, Denies fatigue, Denies heat intolerance and Denies palpitations Hematologic/Lymphatic: Hematologic/Lymphatic: Denies easy bleeding and Denies easy bruising Allergic/Immunologic: Allergic/Immunologic: Denies lip swelling, Denies throat swelling and Denies tongue swelling PMFSH Past Medical History Medical History Amphetamine abuse Patient is vague as to how often he uses. Amputation toe Bacteremia due to Streptococcus pneumoniae (06/2021) With septic left knee and anterior chest abscess. Burn erythema of left lower leg Diabetic peripheral neuropathy Gangrene of right foot History of MRSA infection Hypercholesterolemia Left leg swelling Obesity Polysubstance abuse Including methamphetamines and marijuana. Smoking Tobacco dependence Type 2 diabetes mellitus Hemoglobin A1c was 6.1% on 08/20/2021. Surgical History Surgical History History of carpal tunnel release (~09/07/20) Left-sided per Dr. Escobedo. History of colonoscopy (~10/2008) Negative aside from internal hemorrhoidal tissue per Dr. Damico. History of incision and drainage (10/04/20) -Complex incision and drainage of right diabetic foot ulcer per Dr. Zhao on 10/04/2020. -Incision and drainage of complicated sternal abscess on 06/26/[address] Ramirez. -Incision and drainage of left knee joint and debridement of right foot 1st ray wound on 06/28/2021
--- NOTE | 2021-11-03 09:19 | PM.IMHP ---
H&P: [facility] History of Present Illness Date/Time: 11/03/21 09:19 Chief Complaint: Right great toe wound status post amputation Narrative: 56-year-old male presents to the [facility] wound clinic today for re-evaluation of right foot wound. Patient is 10 weeks, 3 days status post right hallux amputation and debridement of left diabetic foot ulcer. He has been being seen in the wound clinic every 2 weeks. He has been performing daily dressing changes independently at home. He denies any new symptoms of fever, chills, night sweats, nausea, vomiting or diarrhea. He has been utilizing a fracture boot on the right lower extremity and a postop shoe on the left lower extremity. No new concerns today. Review of Systems Review of Systems: All systems reviewed & are unremarkable except as noted in HPI and below PMFSH Past Medical History Medical History Amphetamine abuse Patient is vague as to how often he uses. Amputation toe Bacteremia due to Streptococcus pneumoniae (06/2021) With septic left knee and anterior chest abscess. Burn erythema of left lower leg Diabetic peripheral neuropathy Gangrene of right foot History of MRSA infection Hypercholesterolemia Left leg swelling Obesity Polysubstance abuse Including methamphetamines and marijuana. Smoking Tobacco dependence Type 2 diabetes mellitus Hemoglobin A1c was 6.1% on 08/20/2021. Surgical History Surgical History History of carpal tunnel release (~09/07/20) Left-sided per Dr. Escobedo. History of colonoscopy (~10/2008) Negative aside from internal hemorrhoidal tissue per Dr. Damico. History of incision and drainage (10/04/20) -Complex incision and drainage of right diabetic foot ulcer per Dr. Zhao on 10/04/2020. -Incision and drainage of complicated sternal abscess on 06/26/[address] Ramirez. -Incision and drainage of left knee joint and debridement of right foot 1st ray wound on 06/28/[address] Alvarez. - Extensive incision and drainage of an anterior chest abscess at [facility] Status post debridement (~12/21/19) Excisional debridement of skin, subcutaneous tissue, and muscle of a 4 cm2 ulcer of the plantar surface of the right foot with removal foreign body under fluoroscopy per Dr. Raymundo. Family History Family History Other Carcinoma of colon Diabetes mellitus Social History Social History Social History: Surrogate decision maker: Maxwell Webster, spouse. Code status: Full code. Smoking packs per day: 1 Smoking cigarettes per day: 20.0 Years smoked: 20 Smoking pack-years: 20.00 Smoking status: Current every day smoker Tobacco type: cigarettes Second hand tobacco smoke exposure: No Alcohol intake: current Drinks per week: 5 Alcohol use details: Drinks several alcoholic beverages a month. Substance use: never Substance use type: does not use Other substance usage details: Previous history of methamphetamine use. Additional living arrangements comments: Lives in [place] with his spouse. Additional occupation/education comments: Unemployed. Spiritual care concerns: No Meds Home Medications and Allergies Home Medications Medication Instructions Recorded Confirmed Type metformin 500 mg tablet 500 mg PO BID #60 tabs 04/20/21 10/10/21 Rx insulin lispro 100 unit/mL See Protocol subcut ACHS 08/20/21 10/10/21 History subcutaneous pen liraglutide 0.6 mg/0.1 mL (18 mg/3 0.6 mg subcut DAILY 08/20/21 10/10/21 History mL) subcutaneous pen injector (Victoza 2-Desean) metoprolol tartrate 25 mg tablet 25 mg PO DAILY 08/20/21 10/10/21 History Allergies Allergy/AdvReac Type Severity Reaction Status Date / Time vancomycin AdvReac Other Verified 10/10/21 15:26 Exam Const: General: cooperati
--- NOTE | 2021-11-17 10:01 | PCWOUND ---
WOCN NOTE patient did not show up for his appointment, No call was made to cancel or reschedule.
== END 2021-12-05 08:01 | disposition home or self-care (01) ==
LOC: ANHWOC 07:26
PROVIDERS: PCP Internal Medicine Infectious Disease; Visit Provider Nurse Practitioner Family
DX: L97.519 Non-pressure chronic ulcer of other part of right foot with unspecified severity (principal); E08.621 Diabetes mellitus due to underlying condition with foot ulcer; L03.115 Cellulitis of right lower limb; B95.62 Methicillin resistant Staphylococcus aureus infection as the cause of diseases classified elsewhere
CPT/HCPCS: 11042; 99212; 99213; G0463

== ENCOUNTER 2024-07-15 19:02 | Inpatient (IN) | payer MEDICARE, SELFPAY ==
--- NOTE | ~2024-07-15 | US_ITS ---
EXAMINATION: US renal BI DATE: 07/16/2024 08:26 INDICATION: Left kidney mass. TECHNIQUE: Multiple ultrasound grayscale images of the kidneys were obtained. COMPARISON: CT abdomen and pelvis 05/14/2025 FINDINGS: The right kidney measures 12.7 x 5.5 x 5.3 cm. The left kidney measures 12.5 x 6.1 x 4.3 cm. There is cortical thinning of the kidneys. There is a 2.1 cm cyst in left kidney. There is no hydronephrosis. The bladder is normal. IMPRESSION: 1. 2.1 cm cyst in the left kidney correlating with the CT abnormality. Reviewed, dictated and finalized at location A. BLOWER
--- NOTE | ~2024-07-15 | CT_ITS ---
CLINICAL INDICATION: Hematuria COMPARISON: 11/05/2008. TECHNIQUE: Multiple contiguous axial images of the abdomen and pelvis were performed following the ad ministration of with 100 mL Omnipaque-350 intravenous contrast The dose-length product (DLP) was 1387.21 mGy-cm. Automated exposure control and iterative reconstruction technique were employed. FINDINGS/OBSERVATIONS: Visualized lower thorax: The bilateral lung bases are clear. The heart is of normal size, without pericardial effusion. Liver: The liver enhances homogeneously and is not enlarged. Gallbladder and biliary system: The gallbladder is decompressed, contains a single stone, and otherwise unremarkable. Pancreas: The pancreas enhances homogeneously without ductal dilatation. Spleen: The spleen enhances homogeneously and is not enlarged measuring 8 cm in longitudinal dimension. Kidneys: The bilateral kidneys enhance symmetrically without hydronephrosis. Vascular calcifications are identified within the bilateral kidneys, left greater than right. In addition to the vascular calcifications a 2.5 mm stone is identified within the interpolar region of the right kidney. Exophytic from the posterior lower pole of the left kidney is a rounded focus of soft tissue attenuat ion measuring 18 x 19 x 21 mm, not present on 2009 examination. Nonemergent focused ultrasound examination may be performed for further characterization. Adrenal glands: Unremarkable. Gastrointestinal tract: Colonic diverticulosis without surrounding inflammatory change. Appendix: The air-filled appendix is of normal caliber (axial series, image 127). Vasculature: Densely calcified atherosclerotic disease. Lymph nodes: No pathologically enlarged or morphologically suspicious lymph nodes within the retroperitoneum or at the root of the mesentery. Pelvic structures: The bladder is only minimally distended, and otherwise unremarkable. The prostate gland is not enlarged. Body wall and musculoskeletal: Small fat-containing umbilical hernia. Degenerative disease is identified at the level of L4/L5 and L5/S1 with osteophyte formation, disc sp cassandra narrowing, endplate changes. IMPRESSION: Nonobstructing 2.5 mm calculus within the right kidney. Exophytic focus of soft tissue attenuation within the left kidney, as detailed above. Nonemergent focused ultrasound examination may be performed for further characterization. Cholelithiasis without cholecystitis. Reviewed, dictated and finalized at location A. ESSORI TEACHER IMPRESSION: Nonobstructing 2.5 mm calculus within the right kidney. Exophytic focus of soft tissue attenuation within the left kidney, as detailed above. Nonemergent focused ultrasound examination may be performed for further charact erization. Cholelithiasis without cholecystitis.
--- NOTE | ~2024-07-15 | XR_ITS ---
HISTORY: diabetic toe infection COMPARISON: 08/20/2021 TECHNIQUE: 3 views of the right foot were performed. FINDINGS: No acute fracture or dislocation is appreciated. Irregularity of the soft tissue of the medial aspect of the distal phalanx of the third toe, likely t he site of clinical concern. The tuft of the distal phalanx demonstrates loss of the cortex and under lying bone destruction. Erosion of all 5 tarsal metatarsal joint spaces with obliteration of the normal anatomy. Interval transmetatarsal amputation of the great toe with partial amputation of the proximal phalanx of the second toe since prior imaging. Significant soft tissue swelling is detected within the total of clinical concern, as well as the for efoot. Ossification of the insertion of the Achilles tendon is noted, along with a large calcaneal spur. IMPRESSION: Findings within the distal phalanx of the third toe for which osteomyelitis is suspected. Reviewed, dictated and finalized at location A. GE DIVER
--- OUTSIDE RECORDS SUMMARY | 2024-07-15 19:04 | XMS_ITS | Patient Health Record ---
Author Organization [employer] [facility] Address [address], [place] [address] Care Team Providers Care Coding Tech Name Role Phone Kevin CROFT, Kwasi Primary Care Provider REASON FOR REFERRAL No Information SOCIAL HISTORY Sex Assigned At : Social History Observation Description Sex Assigned At Unknown PROBLEMS Problem Type ICD Code Onset Dates Problem Status W/U Status Risk SNOMED Code Notes Problem Infection of knee (M00.9) 07/04/2021 Active confirmed 656025672 Problem Pressure ulcer of other site, stage 4 (L89.894) 07/04/2021 Active confirmed 317221761 Problem Pressure ulcer of other site, stage 2 (L89.892) 07/04/2021 Active confirmed [id number] PLAN OF TREATMENT No Information Insurance Providers Payer Name Payer Address Payer Phone Subscriber Number Group Number Insured Name Patient Relationship to Insured Coverage Start Date Coverage End Date Medicaid (DO NOT BILL) [address] [place] [address] [id number] Bob Webster Self - patient is the insured
[2024-07-15 19:05] VITALS: BP 104/90; PULSE 64; RESP 20; TEMP 36.4; O2SAT 98
--- OUTSIDE RECORDS SUMMARY | 2024-07-15 19:05 | XMS_ITS | Patient Health Summary ---
Author Organization [facility] Address [address] [place] [address] Care Team Providers Care Slot Floor Person Name Role Phone Miguelito Albrecht MD Primary Care Provider Note from [facility],non-owned Affiliates and Associated Physician Practices is amultiple site organization consisting of ambulatory clinics and hospital sitesin [place], [place], [place] and [place]. This disclosure is being madepursuant to the Care Everywhere program and may not contain all information available regarding this patient. Last updated 18.[facility] Allergies No known active allergies Medications * Be aware that medications may not be up to date on this document. Alwaysverify current medications with the patient. * ONETOUCH ULTRA TEST STRIPS test strip(Started 02/19/2019) Use 1 strip as directed 4 refills remaining * linaGLIPtin (TRADJENTA) 5 MG tablet(Started 02/21/2019) Take 1 tablet by mouth once daily * BASAGLAR KWIKPEN (BASAGLAR) pen(Started 03/06/2019) Inject 9 Units subcutaneously once daily 3 refills left * citalopram (CELEXA) 20 MG tablet(Started 03/19/2019) TK 1 T PO QD 6 refills left * Insulin Lispro (ADMELOG SOLOSTAR) 100 UNIT/ML(Started 04/29/2019) B-200=add 2 units, 201-250=add 4 units, 251-300=add 6 units, 301-350=add 8 units, 351-400=add 10 units,>400=add 12 units;NOTIFY PCP>350 * HYDROcodone-acetaminophen (NORCO) 5-325 MG tablet Take 1 tablet by mouth every 8 hours as needed for Pain Active Problems Problem Noted Date Diagnosed Date Bacteremia 06/20/2021 Acute kidney injury 02/12/2019 MRSA (methicillin resistant staph aureus) cultur e positive 02/12/2019 Diabetic foot infection 01/28/2019 Diabetic ulcer of left foot associated with type 2 diabetes mellitus 01/28/2019 Immunizations * INFLUENZA VACCINE(Given 05/05/2019) * TD (ADULT), 5 LF TETANUS TOXOID, ADSORBED, PF(Given 02/02/2016) Social History Tobacco Use Types Packs/Day Years Used Date Smoking Tobacco: Every Day Cigarettes 1 41.2 Started: 04/27/1983 Smokeless Tobacco: Never Tobacco Cessation:Ready to Q uit: Yes Comments:down to1/2 ppd Alcohol Use Standard Drinks/Week Comments Not Currently 0 (1 standard drink = 0.6 oz pur e alcohol) Sex and Gender Information Value Date Recorded Sex Assigned at Not on file Gender Identity Not on file Sexual Orientation Not on file Last Filed Vital Signs Vital Sign Reading Time Taken Comments Blood Pressure 148/81 07/01/2019 12:26 PM [facility] Pulse 80 07/01/2019 12:26 PM [facility] Temperature 36.2 C (97.1 F) 07/01/2019 12:26 PM [facility] Respiratory Rate 16 04/29/2019 4:12 AM [facility] Oxygen Saturation 98% 07/01/2019 12:26 PM [facility] Inhaled Oxygen Concentration 40% 04/27/2019 1 :45 PM [facility] Weight 115.2 kg (254 lb) 07/01/2019 12:26 PM [facility] Height 188 cm (6' 2 ) 07/01/2019 12:26 PM [facility] Body Mass Index 32.61 07/01/2019 12:26 PM [facility] Procedures * CARDIAC EKG ORDER(Performed 05/14/2019) * GLUCOSE - POINT OF CARE(Performed 04/29/2019) * MAGNESIUM BLOOD(Performed 04/29/2019) Performed for Diabetic foot infection (HCC) * PHOSPHORUS BLOOD(Performed 04/29/2019) Performed for Diabetic foot infection (HCC) * BASIC METABOLIC PANEL (CALCIUM TOTAL)(Performed 04/29/2019) Performed for Diabetic foot infection (HCC) * CBC W/O DIFFERENTIAL(Performed 04/29/2019) Performed for Diabetic foot infection (HCC) * GLUCOSE - POINT OF CARE(Performed 04/28/2019) * GLUCOSE - POINT OF CARE(Performed 04/28/2019) * GLUCOSE - POINT OF CARE(Performed 04/28/2019) * GLUCOSE - POINT OF CARE(Performed 04/28/2019) * GLUCOSE - POINT OF CARE(Performed 04/27/2019) * GLUCOSE - POINT OF CARE(Performed 04/27/2019) * PERIPHERAL BLOCK(Performed 04/27/2019) * GLUCOSE - POINT OF CARE(Performed 04/27/2019) * CULTURE WOUND+GRAM STAIN(Performed 04/27/2019) Performed for Diabetic foot infection (HCC) * CULTURE ANAEROBE(Performed 04/27/2019) Performed for Diabetic foot infection (HCC) * IRRIGATION/DEBRIDEMENT EXTREMITY(Performed 04/27/2019) Performed for Diabetic foot infection (HCC) * GLUCOSE - POINT OF CARE(Performed 04/27/2019) * BASIC METABOLIC PANEL (CALCIUM TOTAL)(Performed 04/24/2019) Performed for Diabetic ulcer of toe of left foot associated with type 2 diabetes mellitus, unspecified ulcer stage (HCC) * VANCOMYCIN LEVEL TROUGH(Performed 04/24/2019) Performed for Diabetic ulcer of toe of left foot associated with type 2 diabetes mellitus, unspecified ulcer stage (HCC) * CBC W AUTO DIFFERENTIAL(Performed 04/24/2019) Performed for Diabetic ulcer of toe of left foot associated with type 2 diabetes mellitus, unspecified ulcer stage (HCC) * BASIC METABOLIC PANEL (CALCIUM TOTAL)(Performed 04/01/2019) Performed for Diabetic ulcer of toe of left foot associated with type 2 diabetes mellitus, unspecified ulcer stage (HCC) * VANCOMYCIN LEVEL TROUGH(Performed 04/01/2019) Performed for Diabetic ulcer of toe of left foot associated with type 2 diabetes mellitus, unspecified ulcer stage (HCC) * CBC W AUTO DIFFERENTIAL(Performed 04/01/2019) Performed for Diabetic ulcer of toe of left foot associated with type 2 diabetes mellitus, unspecified ulcer stage (HCC) * BASIC METABOLIC PANEL (CALCIUM TOTAL)(Performed 03/18/2019) Performed for Diabetic ulcer of toe of left foot associated with type 2 diabetes mellitus, unspecified ulcer stage (HCC) * CBC W AUTO DIFFERENTIAL(Performed 03/18/2019) Performed for Diabetic ulcer of toe of left foot associated with type 2 diabetes mellitus, unspecified ulcer stage (HCC) * BASIC METABOLIC PANEL (CALCIUM TOTAL)(Performed 03/11/2019) Performed for Diabetic ulcer of toe of left foot associated with type 2 diabetes mellitus, unspecified ulcer stage (HCC) * CBC W AUTO DIFFERENTIAL(Performed 03/11/2019) Performed for Diabetic ulcer of toe of left foot associated with type 2 diabetes mellitus, unspecified ulcer stage (HCC) * VANCOMYCIN LEVEL TROUGH(Performed 03/04/2019) Performed for Diabetic foot infection (HCC) * BASIC METABOLIC PANEL (CALCIUM TOTAL)(Performed 03/04/2019) Performed for Diabetic ulcer of toe of left foot associated with type 2 diabetes mellitus, unspecified ulcer stage (HCC) * CBC W AUTO DIFFERENTIAL(Performed 03/04/2019) Performed for Diabetic ulcer of toe of left foot associated with type 2 diabetes mellitus, unspecified ulcer stage (HCC) * CARDIAC EKG ORDER(Performed 02/28/2019) * RENAL FUNCTION PANEL(Performed 02/25/2019) Performed for Diabetic foot infection (HCC) * GLUCOSE - POINT OF CARE(Performed 02/21/2019) * RENAL FUNCTION PANEL(Performed 02/21/2019) Performed for Acute kidney injury (HCC) * CBC W/O DIFFERENTIAL(Performed 02/21/2019) Performed for Acute kidney injury (HCC) * GLUCOSE - POINT OF CARE(Performed 02/20/2019) * GLUCOSE - POINT OF CARE(Performed 02/20/2019) * GLUCOSE - POINT OF CARE(Performed 02/20/2019) * GLUCOSE - POINT OF CARE(Performed 02/20/2019) * RENAL FUNCTION PANEL(Performed 02/20/2019) Performed for Acute kidney injury (HCC) * CBC W/O DIFFERENTIAL(Performed 02/20/2019) Performed for Acute kidney injury (HCC) * GLUCOSE - POINT OF CARE(Performed 02/20/2019) * GLUCOSE - POINT OF CARE(Performed 02/19/2019) * GLUCOSE - POINT OF CARE(Performed 02/19/2019) * GLUCOSE - POINT OF CARE(Performed 02/19/2019) * RENAL FUNCTION PANEL(Performed 02/19/2019) Performed for Acute kidney injury (HCC) * CBC W/O DIFFERENTIAL(Performed 02/19/2019) Performed for Acute kidney injury (HCC) * GLUCOSE - POINT OF CARE(Performed 02/18/2019) * GLUCOSE - POINT OF CARE(Performed 02/18/2019) * GLUCOSE - POINT OF CARE(Performed 02/18/2019) * GLUCOSE - POINT OF CARE(Performed 02/18/2019) * CBC W/O DIFFERENTIAL(Performed 02/18/2019) Performed for Acute kidney injury (HCC), Diabetic foot infection (HCC) * BASIC METABOLIC PANEL (CALCIUM TOTAL)(Performed 02/18/2019) Performed for Acute kidney injury (HCC), Diabetic foot infection (HCC) * GLUCOSE - POINT OF CARE(Performed 02/18/2019) * GLUCOSE - POINT OF CARE(Performed 02/17/2019) * URINALYSIS W/MICROSCOPIC NO CULTURE(Performed 02/17/2019) Performed for Acute kidney injury (HCC) * GLUCOSE - POINT OF CARE(Performed 02/17/2019) * GLUCOSE - POINT OF CARE(Performed 02/17/2019) * GLUCOSE - POINT OF CARE(Performed 02/17/2019) * VANCOMYCIN LEVEL RANDOM(Performed 02/17/2019) Performed for Acute kidney injury (HCC) * RENAL FUNCTION PANEL(Performed 02/17/2019) Performed for Acute kidney injury (HCC) * GLUCOSE - POINT OF CARE(Performed 02/17/2019) * GLUCOSE - POINT OF CARE(Performed 02/16/2019) * GLUCOSE - POINT OF CARE(Performed 02/16/2019) * GLUCOSE - POINT OF CARE(Performed 02/16/2019) * GLUCOSE - POINT OF CARE(Performed 02/16/2019) * BASIC METABOLIC PANEL (CALCIUM TOTAL)(Performed 02/16/2019) * VANCOMYCIN LEVEL RANDOM(Performed 02/16/2019) * GLUCOSE - POINT OF CARE(Performed 02/16/2019) * GLUCOSE - POINT OF CARE(Performed 02/15/2019) * GLUCOSE - POINT OF CARE(Performed 02/15/2019) * GLUCOSE - POINT OF CARE(Performed 02/15/2019) * EKG 12-LEAD(Performed 02/15/2019) Performed for MRSA (methicillin resistant staph aureus) culture positive * GLUCOSE - POINT OF CARE(Performed 02/15/2019) * CBC W/O DIFFERENTIAL(Performed 02/15/2019) * RENAL FUNCTION PANEL(Performed 02/15/2019) * GLUCOSE - POINT OF CARE(Performed 02/15/2019) * GLUCOSE - POINT OF CARE(Performed 02/14/2019) * GLUCOSE - POINT OF CARE(Performed 02/14/2019) * GLUCOSE - POINT OF CARE(Performed 02/14/2019) * GLUCOSE - POINT OF CARE(Performed 02/14/2019) * MAGNESIUM BLOOD(Performed 02/14/2019) * RENAL FUNCTION PANEL(Performed 02/14/2019) * CBC W/O DIFFERENTIAL(Performed 02/14/2019) * VANCOMYCIN LEVEL TROUGH(Performed 02/14/2019) * GLUCOSE - POINT OF CARE(Performed 02/14/2019) * GLUCOSE - POINT OF CARE(Performed 02/13/2019) * GLUCOSE - POINT OF CARE(Performed 02/13/2019) * GLUCOSE - POINT OF CARE(Performed 02/13/2019) * VANCOMYCIN LEVEL RANDOM(Performed 02/13/2019) * CBC W/O DIFFERENTIAL(Performed 02/13/2019) Performed for Acute kidney injury (HCC), Diabetic ulcer of toe of left foot associated with type 2 diabetes mellitus, unspecified ulcer stage (HCC) * BASIC METABOLIC PANEL (CALCIUM TOTAL)(Performed 02/13/2019) Performed for Acute kidney injury (HCC) * UREA NITROGEN URINE RANDOM(Performed 02/13/2019) Performed for Acute kidney injury (HCC) * CREATININE URINE RANDOM(Performed 02/13/2019) Performed for Acute kidney injury (HCC) * SODIUM URINE RANDOM(Performed 02/13/2019) Performed for Acute kidney injury (HCC) * GLUCOSE - POINT OF CARE(Performed 02/12/2019) * US RETROPERITONEAL COMPLETE(Performed 02/12/2019) Performed for Acute kidney injury (HCC) * VANCOMYCIN LEVEL RANDOM(Performed 02/12/2019) * OSMOLALITY URINE(Performed 02/12/2019) * POTASSIUM URINE RANDOM(Performed 02/12/2019) * SODIUM URINE RANDOM(Performed 02/12/2019) * CREATININE URINE RANDOM(Performed 02/12/2019) * COMPREHENSIVE METABOLIC PANEL(Performed 02/12/2019) * CBC W AUTO DIFFERENTIAL(Performed 02/12/2019) * URINALYSIS W/MICROSCOPIC NO CULTURE(Performed 02/12/2019) * BASIC METABOLIC PANEL (CALCIUM TOTAL)(Performed 02/11/2019) Performed for Diabetic ulcer of toe of left foot associated with type 2 diabetes mellitus, unspecified ulcer stage (HCC) * CBC W AUTO DIFFERENTIAL(Performed 02/11/2019) Performed for Diabetic ulcer of toe of left foot associated with type 2 diabetes mellitus, unspecified ulcer stage (HCC) * VASCULAR LAB ORDER(Performed 02/10/2019) * VANCOMYCIN LEVEL TROUGH(Performed 02/05/2019) Performed for Diabetic ulcer of toe of left foot associated with type 2 diabetes mellitus, unspecified ulcer stage (HCC) * GLUCOSE - POINT OF CARE(Performed 02/04/2019) * GLUCOSE - POINT OF CARE(Performed 02/04/2019) * CBC W AUTO DIFFERENTIAL(Performed 02/04/2019) * GLUCOSE - POINT OF CARE(Performed 02/04/2019) * GLUCOSE - POINT OF CARE(Performed 02/03/2019) * VANCOMYCIN LEVEL TROUGH(Performed 02/03/2019) * GLUCOSE - POINT OF CARE(Performed 02/03/2019) * GLUCOSE - POINT OF CARE(Performed 02/03/2019) * CBC W AUTO DIFFERENTIAL(Performed 02/03/2019) * GLUCOSE - POINT OF CARE(Performed 02/03/2019) * GLUCOSE - POINT OF CARE(Performed 02/03/2019) * GLUCOSE - POINT OF CARE(Performed 02/02/2019) * GLUCOSE - POINT OF CARE(Performed 02/02/2019) * GLUCOSE - POINT OF CARE(Performed 02/02/2019) * GLUCOSE - POINT OF CARE(Performed 02/02/2019) * CBC W AUTO DIFFERENTIAL(Performed 02/02/2019) * GLUCOSE - POINT OF CARE(Performed 02/01/2019) * GLUCOSE - POINT OF CARE(Performed 02/01/2019) * GLUCOSE - POINT OF CARE(Performed 02/01/2019) * GLUCOSE - POINT OF CARE(Performed 02/01/2019) * BASIC METABOLIC PANEL (CALCIUM TOTAL)(Performed 02/01/2019) * CBC W AUTO DIFFERENTIAL(Performed 02/01/2019) * GLUCOSE - POINT OF CARE(Performed 02/01/2019) * GLUCOSE - POINT OF CARE(Performed 01/31/2019) * GLUCOSE - POINT OF CARE(Performed 01/31/2019) * GLUCOSE - POINT OF CARE(Performed 01/31/2019) * GLUCOSE - POINT OF CARE(Performed 01/31/2019) * CBC W AUTO DIFFERENTIAL(Performed 01/31/2019) * GLUCOSE - POINT OF CARE(Performed 01/31/2019) * GLUCOSE - POINT OF CARE(Performed 01/30/2019) * GLUCOSE - POINT OF CARE(Performed 01/30/2019) * IR PICC LINE INSERT(Performed 01/30/2019) Performed for Diabetic ulcer of toe of left foot associated with type 2 diabetes mellitus, unspecified ulcer stage (HCC) * GLUCOSE - POINT OF CARE(Performed 01/30/2019) * CULTURE WOUND+GRAM STAIN(Performed 01/30/2019) * GLUCOSE - POINT OF CARE(Performed 01/30/2019) * CBC W AUTO DIFFERENTIAL(Performed 01/30/2019) * GLUCOSE - POINT OF CARE(Performed 01/30/2019) * GLUCOSE - POINT OF CARE(Performed 01/29/2019) * GLUCOSE - POINT OF CARE(Performed 01/29/2019) * GLUCOSE - POINT OF CARE(Performed 01/29/2019) * VAS ARTERIAL ANKLE ARM INDEX(Performed 01/29/2019) Performed for Diabetic ulcer of toe of left foot associated with type 2 diabetes mellitus, unspecified ulcer stage (HCC) * GLUCOSE - POINT OF CARE(Performed 01/29/2019) * PHOSPHORUS BLOOD(Performed 01/29/2019) * MAGNESIUM BLOOD(Performed 01/29/2019) * BASIC METABOLIC PANEL (CALCIUM TOTAL)(Performed 01/29/2019) * CBC W AUTO DIFFERENTIAL(Performed 01/29/2019) * HEMOGLOBIN A1C(Performed 01/29/2019) * GLUCOSE - POINT OF CARE(Performed 01/28/2019) * GLUCOSE - POINT OF CARE(Performed 01/28/2019) * XR FOOT LEFT 3VW OR MORE(Performed 01/28/2019) Performed for Diabetic ulcer of left foot associated with type 2 diabetes mellitus, unspecified part of foot, unspecified ulcer stage (HCC) * CULTURE BLOOD(Performed 01/28/2019) * LACTIC ACID BLOOD(Performed 01/28/2019) * C-REACTIVE PROTEIN(Performed 01/28/2019) * ERYTHROCYTE SEDIMENTATION RATE(Performed 01/28/2019) * BASIC METABOLIC PANEL (CALCIUM TOTAL)(Performed 01/28/2019) * CBC W AUTO DIFFERENTIAL(Performed 01/28/2019) * CULTURE BLOOD(Performed 01/28/2019) Results * CARDIAC EKG ORDER (05/14/2019 10:01 AM [facility]) Only the most recent of2 resultswithin the time period is included. Narrative 05/14/2019 10:01 AM [facility] Ordered by an unspecified provider. Scanned Document CARDIAC SERVICES ORD ERABLES * (ABNORMAL) GLUCOSE - POINT OF CARE (04/29/2019 8:02 AM [facility]) Only the most recent of80 resultswithin the time period is included. Glucose WB/POC 130(H) 70 - 115 mg/dL 04/29/2019 8:05 AM [facility] Specimen Type Arterial/C apillary 04/29/2019 8:05 AM [facility] Comment:FUELER: Coty raymundo Blood BLOOD SPECIMEN / Unknown 04/29/2019 8:02 AM [facility] 04/29/2019 8:05 AM [facility] Hiwot William MD LAB - POINT OF CARE ORDERABLES [facility] [address] [place] [address] * (ABNORMAL) CBC W/O DIFFERENTIAL (04/29/2019 5:22 AM [facility]) Only the most recent of8 resultswithin the time period is included. WBC 7.5 3.5 - 10.5 10 3/uL 04/29/2019 5:29 AM [facility] RBC 4.07(L) 4.30 - 5.70 10 6/uL 04/29/2019 5:29 AM [facility] Hemoglobin 12.4(L) 13.5 - 17.5 g/dL 04/29/2019 5:29 AM [facility] Hematocrit 37.4(L) 39.0 - 50.0 % 04/29/2019 5:29 AM [facility] MCV 91.9 81.0 - 97.0 fL 04/29/2019 5:29 AM [facility] MCH 30.5 28.0 - 34.0 pg 04/29/2019 5:29 AM [facility] MCHC 33.2 32.0 - 36.0 g/dL 04/29/2019 5:29 AM [facility] Platelet Count 208 150 - 400 10 3/uL 04/29/2019 5:29 AM [facility] RDW-SD 43.8 36.0 - 50.0 fL 04/29/2019 5:29 AM [facility] RDW-CV 13.1 11.2 - 14.8 % 04/29/2019 5:29 AM [facility] MPV 8.6(L) 9.3 - 12.8 fL 04/29/2019 5:29 AM [facility] nRBC Absolute 0.00 0 10 3/uL 04/29/2019 5:29 AM [facility] nRBC Auto 0.0 0 /100 WBC 04/29/2019 5:29 AM [facility] Blood BLOOD SPECIMEN / Unknown Venipuncture / Unknown 04/29/2019 5:22 AM [facility] 04/29/2019 5:27 AM [facility] Diana Elys Ayla PURCELL LAB - HEMATOLOG Y ORDERABLES [facility] [address] [place] [address] * (ABNORMAL) BASIC METABOLIC PANEL (CALCIUM TOTAL) (04/29/2019 5:22 AM [facility]) Only the most recent of13 resultswithin the time period is included. BUN 21 7 - 26 mg/dL 04/29/2019 5:55 AM [facility] Creatinine 0.9 0.6 - 1.2 mg/dL 04/29/2019 5:55 AM [facility] Sodium 140 136 - 145 mmol/L 04/29/2019 5:55 AM [facility] Potassium 4.1 3.5 - 4.5 mmol/L 04/29/2019 5:55 AM [facility] Chloride 103 98 - 107 mmol/L 04/29/2019 5:55 AM [facility] CO2 29 22 - 29 mmol/L 04/29/2019 5:55 AM [facility] Glucose 151(H) 70 - 115 mg/dL 04/29/2019 5:55 AM [facility] Calcium 9.6 8.4 - 10.2 mg/dL 04/29/2019 5:55 AM [facility] Anion Gap 12 8 - 18 04/29/2019 5:55 AM [facility] BUN/Creatinine Ratio 23 7 - 23 04/29/2019 5:55 AM [facility] Osmolality Calculated 296 270 - 300 mOsm/kg 04/29/2019 5:55 AM [facility] eGFR >60 >60 mL/min/1.7 3 m2 04/29/2019 5:55 AM [facility] Blood BLOOD SPECIMEN / Unknown Venipuncture / Unknown 04/29/2019 5:22 AM [facility] 04/29/2019 5:27 AM [facility] Diana Aguila DO LAB - CHEMISTRY ORDERABLES Performing Organization Address City/[facility]/[place] [address], [facility] [phone] * PHOSPHORUS BLOOD (04/29/2019 5:22 AM [facility]) Only the most recent of2 resultswithin the time period is included. Phosphorus 3.4 2.3 - 4.7 mg/dL 04/29/2019 5:55 AM [facility] Blood BLOOD SPECIMEN / Unknown Venipuncture / Unknown 04/29/2019 5:22 AM [facility] 04/29/2019 5:27 AM [facility] Diana Aguila DO LAB - CHEMISTRY ORDERABLES Performing Organization Address [facility] Co de Phone Number [address] [phone] * MAGNESIUM BLOOD (04/29/2019 5:22 AM [facility]) Only the most recent of3 resultswithin the time period is included. Magnesium 1.6 1.6 - 2.6 mg/dL 04/29/2019 5:55 AM [facility] Blood BLOOD SPECIMEN / Unknown Venipuncture / Unknown 04/29/2019 5:22 AM [facility] 04/29/2019 5:27 AM [facility] Diana Patelalisonwyatt DO LAB - CHEMISTRY ORDERABLES Performing Organization Address City/[facility] [place] [address], [facility] [phone] * Peripheral Nerve Block (04/27/2019 3:11 PM [facility]REL [facility]ATER) Narrative Lorenzo Galvan MD - 04/27/2019 3:11 PM [facility] Lorenzo Galvan MD 04/27/2019 3:13 PM Peripheral Nerve Block Procedure: Peripheral Nerve Block Patient Location: Pre-op Preprocedure Section: Indications: at surgeon's request and surgical anesthesia. Pre-anesthetic Checklist: Patient identified, IV Checked, Site examined and clear, Risks and benefits discussed, Surgical consent verified, Monitors and equipment, Time-out performed, Informed consent obtained, Pre-op evaluation done, Questions answered/anesthesia questions answered, Allergies reviewed and Removal hand/wrist jewelry Monitors: EKG, Pulse Ox and BP. Patient Condition: awake Patient Position: supine Patient Sedated? No Procedure Section Laterality: left Block Performed: ankle Prep: Chloraprep Strerile Field: gloves, mask and hat/cap Needle Type: short-bevel Needle Gauge: 22 Needle Length: 50 mm Needle Depth: 4 cm Catheter? No Injection was made incrementally with constant monitoring and aspirations every 5 mL's Injection Assessment: Slow fractionated injection Block Agents or Additives used? Yes Block agents used: bupivacaine PF (MARCAINE PF) 0.5 % injection, 50 mL dexamethasone (DECADRON) injection, 5 mg (precedex 20 mcg) Procedure Tolerance: tolerated well Assessment: completed Procedure Start Time: 04/27/2019 11:20 AM. Procedure End Time: 04/27/2019 11:33 AM. Procedure Total Time: 13 minutes. Staff Section Anesthesia Provider: Lorenzo Galvan MD Provider #1: Luis M Villarreal MD, Performed the procedure. Additional Comments: I was present and supervised the nerve block.. He Sandoval MD GENERAL ANESTHESIA O RDERABLES * (ABNORMAL) CULTURE WOUND+GRAM STAIN (04/27/2019 12:34 PM [facility]) Only the most recent of2 resultswithin the time period is included. Culture Light Enterobacter cloacae complex(A) ZIA 04/29/2019 10:32 AM [facility] Culture Rare Staphylococcus aureus methicillin-resi stant (MRSA)(A) ZIA 04/29/2019 10:32 AM [facility] Comment:Staphylococcus aureu s methicillin-resistant (MRSA) detected by penicillin binding protein immunoassay. Contact precautions required. Conventional antibiotic susceptibility testing to follow. Culture Rare normal skin ryan ZIA 04/29/2019 10:32 AM [facility] Gram Stain No organisms seen 04/29/2019 10:32 AM [facility] Microbiology ENTIRE FOOT / Unknown Collection / Unknown 04/27/2019 12:34 PM [facility] 04/27/2019 1:44 PM [facility] - 04/29/2019 10:32 AM [facility] Methicillin-resistant Staphylococci (MRSA) are resistant to all currently available beta-lactam antibiotics with the exception of the newer cephalosporins with anti-MRSA activity. Contact precautions required. Enterobacter, Citrobacter, Serratia, and Klebsiella (formerly Enterobacter) aerogenes may develop resistance during prolonged therapy with third-generation cephalosporins as a result of derepression of AmpC beta-lactamase. Therefore, isolates that are initially susceptible may become resistant within 3 or 4 days after initiation of therapy. Testing of repeat isolates may be warranted. Organism Antibiotic Method Susceptibility Enterobacter cloacae complex Amikacin ZIA <=2 ug/mL: Susceptible Enterobacter cloacae complex Cefepime ZIA <=1 ug/mL: Susceptible Enterobacter cloacae complex Ceftriaxone ZIA <=1 ug/mL: Susceptible Enterobacter cloacae complex Ciprofloxacin ZIA <=0.25 ug/mL: Susceptible Enterobacter cloacae complex Gentamicin ZIA <=1 ug/mL: Susceptible Enterobacter cloacae complex Meropenem ZIA <=0.25 ug/mL: Susceptible Enterobacter cloacae complex Piperacillin-tazobactam ZIA <=4 ug/mL: Susceptible Enterobacter cloacae complex Tobramycin ZIA <=1 ug/mL: Susceptible Enterobacter cloacae complex Trimethoprim-sulfamethoxa zole ZIA <=20 ug/mL: Susceptible Staphylococcus aureus methicillin-resistant (MRSA) Ciprofloxacin ZIA <=0.5 ug/mL: Susceptible Staphylococcus aureus methicillin-resistant (MRSA) Clindamycin ZIA 0.25 ug/mL: Susceptible Staphylococcus aureus methicillin-resistant (MRSA) Doxycycline ZIA <=0.5 ug/mL: Susceptible Staphylococcus aureus methicillin-resistant (MRSA) Erythromycin ZIA >=8 ug/mL: Resistant Staphylococcus aureus methicillin-resistant (MRSA) Gentamicin ZIA <=0.5 ug/mL: Susceptible Staphylococcus aureus methicillin-resistant (MRSA) Inducible Clindamycin Resistance ZIA NEG ug/mL: Neg Staphylococcus aureus methicillin-resistant (MRSA) Levofloxacin ZIA <=0.12 ug/mL: Susceptible Staphylococcus aureus methicillin-resistant (MRSA) Linezolid ZIA 2 ug/mL: Susceptible Staphylococcus aureus methicillin-resistant (MRSA) Oxacillin ZIA >=4 ug/mL: Resistant Staphylococcus aureus methicillin-resistant (MRSA) Tetracycline ZIA <=1 ug/mL: Susceptible Staphylococcus aureus methicillin-resistant (MRSA) Trimethoprim-sulfamethoxa zole ZIA <=10 ug/mL: Susceptible Staphylococcus aureus methicillin-resistant (MRSA) Vancomycin ZIA 1 ug/mL: Susceptible Hiwot William MD LAB - MICROBIOLOGY ORDERABLES [facility] MICROBIOLOGY [address] [place] [address], [facility] [phone] * CULTURE ANAEROBE (04/27/2019 12:34 PM [facility]) Culture No anaerobic organisms isolated ZIA 05/04/2019 12:44 PM [facility] MICROBIOLOGY Microbiology ENTIRE FOOT / Unknown Collection / Unknown 04/27/2019 12:34 PM [facility] 04/27/2019 1:44 PM [facility] Hiwot William MD LAB - MICROBIOLOGY ORDERABLES Performing Organization Address City/[facility]/ZIP Co de Phone Number [facility] MICROBIOLOGY [address] [place] [address], [facility] [phone] * (ABNORMAL) CBC WITH DIFFERENTIAL (04/24/2019 12:39 PM [facility]) Only the most recent of15 resultswithin the time period is included. WBC 7.4 3.5 - 10.5 10 3/uL 04/24/2019 12:57 PM [facility] RBC 4.25(L) 4.30 - 5.70 10 6/uL 04/24/2019 12:57 PM [facility] Hemoglobin 13.0(L) 13.5 - 17.5 g/dL 04/24/2019 12:57 PM [facility] Hematocrit 39.0 39.0 - 50.0 % 04/24/2019 12:57 PM [facility] MCV 91.8 81.0 - 97.0 fL 04/24/2019 12:57 PM [facility] MCH 30.6 28.0 - 34.0 pg 04/24/2019 12:57 PM [facility] MCHC 33.3 32.0 - 36.0 g/dL 04/24/2019 12:57 PM [facility] Platelet Count 214 150 - 400 10 3/uL 04/24/2019 12:57 PM [facility] RDW-SD 43.5 36.0 - 50.0 fL 04/24/2019 12:57 PM [facility] RDW-CV 13.1 11.2 - 14.8 % 04/24/2019 12:57 PM [facility] MPV 9.0(L) 9.3 - 12.8 fL 04/24/2019 12:57 PM [facility] nRBC Absolute 0.00 0 10 3/uL 04/24/2019 12:57 PM [facility] nRBC Auto 0.0 0 /100 WBC 04/24/2019 12:57 PM [facility] Neutrophils % 70.4(H) 35.0 - 70.0 % 04/24/2019 12:57 PM [facility] Lymphocytes % 19.4(L) 19.7 - 55.1 % 04/24/2019 12:57 PM [facility] Monocytes % 6.9 3.0 - 15.0 % 04/24/2019 12:57 PM [facility] Eosinophils % 2.2 0.0 - 6.0 % 04/24/2019 12:57 PM [facility] Basophil % 0.7 0.0 - 1.5 % 04/24/2019 12:57 PM [facility] Neutrophils Absolute 5.3 1.6 - 7.0 10 3/uL 04/24/2019 12:57 PM [facility] Lymphocyte Absolute 1.4 0.8 - 2.9 10 3/uL 04/24/2019 12:57 PM [facility] Monocytes Absolute 0.51 0.14 - 0.66 10 3/uL 04/24/2019 12:57 PM [facility] Eosinophils Absolute 0.16 0.00 - 0.45 10 3/uL 04/24/2019 12:57 PM [facility] Basophils Absolute 0.05 0.00 - 0.06 10 3/uL 04/24/2019 12:57 PM [facility] Immature Granulocytes % 0.4 0.0 - 1.0 % 04/24/2019 12:57 PM [facility] Blood BLOOD SPECIMEN / Unknown Lab Venipuncture / Unknown 04/24/2019 12:39 PM [facility] 04/24/2019 12:52 PM [facility] Hiwot William MD LAB - HEMATOLOGY OR DERABLES Performing Organization Address [facility]/ZIP Co de Phone Number [address] [phone] * (ABNORMAL) VANCOMYCIN LEVEL TROUGH (04/24/2019 12:39 PM [facility]) Only the most recent of6 resultswithin the time period is included. Pathologist [facility] Vancomycin Trough <3.0(L) 10.0 - 20.0 mcg/mL 04/24/2019 1:19 PM [facility] Blood BLOOD SPECIMEN / Unknown Lab Venipuncture / Unknown 04/24/2019 12:39 PM [facility] 04/24/2019 12:52 PM [facility] Hiwot William MD LAB - CHEMISTRY ORD ERABLES Performing Organization Address [facility] Co de Phone Number [address] [phone] * (ABNORMAL) RENAL FUNCTION PANEL (02/25/2019 12:14 PM CDT) Only the most recent of7 resultswithin the time period is included. BUN 70(H) 7 - 26 mg/dL 02/25/2019 1:39 PM [facility] Creatinine 4.6(H) 0.6 - 1.2 mg/dL 02/25/2019 1:39 PM [facility] Sodium 141 136 - 145 mmol/L 02/25/2019 1:39 PM [facility] Potassium 4.1 3.5 - 4.5 mmol/L 02/25/2019 1:39 PM [facility] Chloride 101 98 - 107 mmol/L 02/25/2019 1:39 PM [facility] CO2 26 22 - 29 mmol/L 02/25/2019 1:39 PM [facility] Glucose 151(H) 70 - 115 mg/dL 02/25/2019 1:39 PM [facility] Albumin 4.3 3.4 - 5.0 g/dL 02/25/2019 1:39 PM [facility] Calcium 10.2 8.4 - 10.2 mg/dL 02/25/2019 1:39 PM [facility] Phosphorus 5.4(H) 2.3 - 4.7 mg/dL 02/25/2019 1:39 PM [facility] Anion Gap 18 8 - 18 02/25/2019 1:39 PM [facility] BUN/Creatinine Ratio 15 7 - 23 02/25/2019 1:39 PM [facility] Osmolality Calculated 315(H) 270 - 300 mOsm/kg 02/25/2019 1:39 PM [facility] eGFR 14(L) >60 mL/min/1.7 3 m2 02/25/2019 1:39 PM [facility] Blood BLOOD SPECIMEN / Unknown Lab Venipuncture / Unknown 02/25/2019 12:14 PM CDT 02/25/2019 12:58 PM T Dianelys Lisa MD LAB - CHEMISTRY JOVANNI SEARS [facility] Organization Address City/State/ZIP Co de Phone Number [address] [phone] * URINALYSIS W/MICROSCOPIC NO CULTURE (02/17/2019 7:00 PM CDT) Only the most recent of2 resultswithin the time period is included. Color UA Straw Straw, Yellow, Colorless 02/17/2019 7:19 PM [facility] Clarity UA Clear Clear, Slt Cloudy 02/17/2019 7:19 PM [facility] Specific [place] UA 1.009 1.005 - 1.030 02/17/2019 7:19 PM [facility] pH UA 6.0 5.0 - 8.0 pH 02/17/2019 7:19 PM [facility] Protein UA Negative Negative mg/dL 02/17/2019 7:19 PM [facility] Glucose UA Negative Negative mg/dL 02/17/2019 7:19 PM [facility] Ketone UA Negative Negative mg/dL 02/17/2019 7:19 PM [facility] Bilirubin UA Negative Negative mg/dL 02/17/2019 7:19 PM [facility] Blood UA Negative Negative 02/17/2019 7:19 PM CDT [facility] Nitrite UA Negative Negative 02/17/2019 7:19 PM T [facility] Leukocyte Esterase Negative Negative 02/17/2019 7:19 PM T [facility] Urobilinogen UA Negative Negative mg/dL 02/17/2019 7:19 PM T [facility] RBC UA 3-5 None Seen, 0-2, 3-5 /HPF 02/17/2019 7:19 PM T [facility] WBC UA 0-5 None Seen, 0-5 /HPF 02/17/2019 7:19 PM T [facility] Squamous Epithelial Cells UA 0-2 None Seen, 0-2 /HPF 02/17/2019 7:19 PM [facility] Transitional Epithelial Cells UA 0-2 None Seen, 0-2 /HPF 02/17/2019 7:19 PM T [facility] Urine URINE SPECIMEN OBTAINED BY CLEAN CATCH PROCEDURE / Unknown Collection / Unknown 02/17/2019 7:00 PM CDT 02/17/2019 7:05 PM CDT Narrative [facility] - 02/17/2019 7:19 PM CDT Americo Urrutia MD LAB - URINALYSIS ORD ERABLES [address] [phone] * (ABNORMAL) VANCOMYCIN LEVEL RANDOM (02/17/2019 6:13 AM CDT) Only the most recent of4 resultswithin the time period is included. Vancomycin Random 49.3(HH) Therapeutic Ranges not established for random specimens mcg/mL 02/17/2019 8:26 AM CDT [facility] Blood BLOOD SPECIMEN / Unknown Lab Venipuncture / Unknown 02/17/2019 6:13 AM CDT 02/17/2019 7:16 AM CDT Americo Urrutia MD LAB - CHEMISTRY ORDE RABLES [address] [phone] * EKG 12-LEAD (02/15/2019 10:35 AM CDT) Ventricular Rate 53 BPM [facility] Atrial Rate 53 BPM [facility] P-R Interval 182 ms [facility] QRS Duration ms 84 ms [facility] Q-T Interval ms 358 ms [facility] QTC Calculation (Bezet) 335 ms [facility] Calculated P Post 44 degrees [facility] Calculated R Post 28 degrees [facility] Calculated T Post 43 degrees [facility] Interpretation EKG SINUS BRADYCARDIA OTHERWISE NORMAL ECG NO PREVIOUS ECGS AVAILABLE Confirmed by Eric Martínez ([id number]), editor house organ Juice Arnold ([id number]) on 03/28/2019 9:09:31 PM [facility] 02/15/2019 10:3 5 AM CDT 03/28/2019 9:09 PM CDT Americo Urrutia MD ECG ORDERABLES Performing Organization Address City/[facility]/ZIP Co de Phone Number [facility] * SODIUM URINE RANDOM (02/13/2019 12:39 AM CDT) Only the most recent of2 resultswithin the time period is included. Sodium Urine 95 Not Established mmol/L 02/13/2019 1:00 AM CDT [facility] Urine URINE SPECIMEN OBTAINED BY CLEAN CATCH PROCEDURE / Unknown Collection / Unknown 02/13/2019 12:39 AM CDT 02/13/2019 12:39 AM CDT Bob Daly MD LAB - URINE CHEMISTR Y ORDERABLES [address] [phone] * UREA NITROGEN URINE RANDOM (02/13/2019 12:39 AM CDT) Urea Nitrogen Random Urine 333 Not Established mg/dL 02/13/2019 12:59 AM CDT [facility] Urine URINE SPECIMEN OBTAINED BY CLEAN CATCH PROCEDURE / Unknown Collection / Unknown 02/13/2019 12:39 AM CDT 02/13/2019 12:39 AM CDT Zita Burciaga MD LAB - URINE CHEMISTR Y ORDERABLES [address] [phone] * CREATININE URINE RANDOM (02/13/2019 12:39 AM CDT) Only the most recent of2 resultswithin the time period is included. Creatinine Urine 70 Not Established mg/dL 02/13/2019 1:09 AM CDT [facility] Comment: Result obtained by dilution. Urine URINE SPECIMEN OBTAINED BY CLEAN CATCH PROCEDURE / Unknown Collection / Unknown 02/13/2019 12:39 AM CDT 02/13/2019 12:39 AM CDT Bob Daly MD LAB - URINE CHEMISTR Y ORDERABLES Performing Organization Address [facility] Co de Phone Number [address] [phone] * US RETROPERITONEAL COMPLETE (02/12/2019 5:45 PM CDT) Anatomical Region Laterality Modality Abdomen Ultrasound 02/12/2019 5:37 PM CDT Impressions 02/13/2019 9:27 AM CDT IMPRESSION: 1.Normal renal size. No evidence of nephrolithiasis, hydronephrosis, or solid renal mass. 2.Incidental finding of cholelithiasis without evidence of cholecystitis. Report dictated by Alcon Ansari DO (vice president network development). I, Dr. CHIRAG VANG M.D. have personally reviewed and interpreted this examination/study. This report was electronically signed by CHIRAG VANG M.D. on 02/13/2019 9:27 AM . Narrative 02/13/2019 9:27 AM CDT EXAMINATION: Complete retroperitoneal sonogram HISTORY: ACUTE KIDNEY INJURY COMPARISON: No prior study is available for comparison. FINDINGS: Right kidney: 13.2 x 7.6 x 7.1 cm Left kidney: 14.3 x 6.8 x 6.8 cm Renal parenchymal echogenicity is normal. A 1.2 x 1.1 x 1.3 cm cyst is seen in the inferior pole of the left kidney. There is no evidence of a solid renal lesion, renal calculi, or hydronephrosis. Blood flow is seen within the renal arteries and veins. The urinary bladder is distended. There is an incidental finding of a gallstone in the dependent portion of the gallbladder without evidence of wall thickening or pericholecystic fluid. The common bile duct measures 0.3 cm. Procedure Note Chirag Vang MD - 02/13/2019 EXAMINATION: Complete retroperitoneal sonogram HISTORY: ACUTE KIDNEY INJURY COMPARISON: No prior study is available for comparison. FINDINGS: Right kidney: 13.2 x 7.6 x 7.1 cm Left kidney: 14.3 x 6.8 x 6.8 cm Renal parenchymal echogenicity is normal. A 1.2 x 1.1 x 1.3 cm cyst is seen in the inferior pole of the left kidney. There is no evidence of a solid renal lesion, renal calculi, or hydronephrosis. Blood flow is seen within the renal arteries and veins. The urinary bladder is distended. There is an incidental finding of a gallstone in the dependent portionof the gallbladder without evidence of wall thickening or pericholecystic fluid. The common bile duct measures 0.3 cm. IMPRESSION: 1.Normal renal size. No evidence of nephrolithiasis, hydronephrosis, or solid renal mass. 2.Incidental finding of cholelithiasis without evidence ofcholecystitis. Report dictated by Alcon Ansari DO (vice president network development). I, Dr. CHIRAG VANG M.D. have personally reviewed and interpreted this examination/study. This report was electronically signed by CHIRAG VANG M.D. on02/13/2019 9:27 AM . Lucila Mary MD US ORDERABLES * POTASSIUM URINE RANDOM (02/12/2019 3:19 PM CDT) Potassium Urine 24 Not Established mmol/L 02/12/2019 3:57 PM CDT [facility] Urine URINE SPECIMEN OBTAINED BY CLEAN CATCH PROCEDURE / Unknown Collection / Unknown 02/12/2019 3:19 PM CDT 02/12/2019 3:22 PM CDT Lucila Mary MD LAB - URINE CHEMISTR Y ORDERABLES Performing Organization Address [facility]/[place] [address], [facility] [phone] * OSMOLALITY URINE (02/12/2019 3:19 PM CDT) [facility] Osmolality Urine 429 50-1,200 mOsm/kg 02/12/2019 4:07 PM [facility] Urine URINE SPECIMEN OBTAINED BY CLEAN CATCH PROCEDURE / Unknown Collection / Unknown 02/12/2019 3:19 PM CDT 02/12/2019 3:22 PM CDT Lucila aMry MD LAB - URINE CHEMISTR Y ORDERABLES Performing Organization Address [facility] Co de Phone Number [address] [phone] * (ABNORMAL) COMPREHENSIVE METABOLIC PANEL (02/12/2019 1:59 PM CDT) [facility] BUN 53(H) 7 - 26 mg/dL 02/12/2019 2:23 PM [facility] Creatinine 4.3(H) 0.6 - 1.2 mg/dL 02/12/2019 2:23 PM [facility] Sodium 140 136 - 145 mmol/L 02/12/2019 2:23 PM [facility] Potassium 4.6(H) 3.5 - 4.5 mmol/L 02/12/2019 2:23 PM [facility] Chloride 107 98 - 107 mmol/L 02/12/2019 2:23 PM [facility] CO2 24 22 - 29 mmol/L 02/12/2019 2:23 PM [facility] Glucose 112 70 - 115 mg/dL 02/12/2019 2:23 PM [facility] Calcium 9.5 8.4 - 10.2 mg/dL 02/12/2019 2:23 PM [facility] Protein Total 6.5 6.0 - 8.3 g/dL 02/12/2019 2:23 PM [facility] Albumin 3.3(L) 3.4 - 5.0 g/dL 02/12/2019 2:23 PM [facility] Bilirubin Total 0.3 0.2 - 1.2 mg/dL 02/12/2019 2:23 PM [facility] Alkaline Phosphatase 75 40 - 150 Units/L 02/12/2019 2:23 PM [facility] ALT 13 0 - 55 Units/L 02/12/2019 2:23 PM [facility] AST 16 5 - 34 Units/L 02/12/2019 2:23 PM [facility] Anion Gap 14 8 - 18 02/12/2019 2:23 PM [facility] BUN/Creatinine Ratio 12 7 - 23 02/12/2019 2:23 PM [facility] Osmolality Calculated 305(H) 270 - 300 mOsm/kg 02/12/2019 2:23 PM [facility] Albumin/Globulin Ratio 1.0(L) 1.1 - 2.3 02/12/2019 2:23 PM [facility] eGFR 15(L) >60 mL/min/1.7 3 m2 02/12/2019 2:23 PM [facility] Blood BLOOD SPECIMEN / Unknown Venipuncture / Unknown 02/12/2019 1:59 PM CDT 02/12/2019 2:04 PM CDT Karma Parr PA-C LAB - CHEMISTRY ORDERABLES [facility] [address] [place] [address] * VASCULAR LAB ORDER (02/10/2019 3:13 PM CDT) Anatomical Region Laterality Modality Other Narrative 02/10/2019 3:13 PM CDT Ordered by an unspecified provider. Scanned Document VASCULAR LAB ORDERAB LES * IR PICC LINE INSERT (01/30/2019 3:59 PM CDT) Anatomical Region Laterality Modality X-Ray Angiograph y 01/30/2019 4:11 PM CDT Impressions 02/03/2019 10:30 AM CDT IMPRESSION: Technically successful insertion of right-sided single-lumen 41 cm power injectable supradiaphragmatic PICC, with tip in the expected location of the cavoatrial junction. Plan: The catheter may be used immediately. PROCEDURE SUMMARY: - Venous access with ultrasound guidance - PICC insertion with fluoroscopic guidance PROCEDURE DETAILS: Pre-procedure History and imaging of central venous access reviewed (QCDR): Informed consent for the procedure was obtained and time-out was performed prior to the procedure. Prophylactic antibiotic administered: None Preparation (MIPS): The site was prepared and draped using all elements of maximal sterile barrier technique including sterile gloves, sterile gown, cap, mask, large sterile sheet, sterile ultrasound probe cover, hand hygiene and cutaneous antisepsis with 2% chlorhexidine. Medical reason for site preparation exception (MIPS): Not applicable Anesthesia/sedation Level of anesthesia/sedation: None. Access Local anesthesia was administered. The vessel was sonographically evaluated and judged appropriate for access. Real time ultrasound was used to visualize needle entry into the vessel and a permanent image was stored. Vein accessed: Right brachial Access vein ultrasound findings: Patent Access technique: 21 gauge micropuncture needle Venography Indication for venography: Not performed Catheter tip position for venography: Not applicable Venous segment imaged: Not applicable Findings: Not applicable Catheter placement The catheter was trimmed to appropriate length and placed into the vein under fluoroscopic guidance via a peel-away sheath. Catheter tip location was fluoroscopically verified and image archived. Catheter placed: Bard power injectable Catheter size: 5 Filipino Catheter intravascular length: 41 cm Catheter tip position: 2.5 vertebral body units (VBUs) below the romina. Unique Device Identifier (EMILIANO): Catheter flush: Hep saline Catheter securement technique: Stat-Lock Sterile dressing(s) applied. Contrast Contrast agent: None Contrast volume: 0 mL Radiation Dose Fluoroscopy time: 0.1 minutes Reference air kerma: Kerma area product: Additional Details Additional description of procedure: None Additional findings: None Equipment details: None Specimens removed: None Estimated blood loss: Less than 10 mL Standardized report: [id number] Attestation I, NORAH ZAMORANO M.D., attest that I reviewed the stored images and agree with the report as written. This report was approved by Gigi Hawthorne on 01/30/2019 4:12 PM . I, Dr. NORAH ZAMORANO M.D. have personally reviewed and interpreted this examination/study. This report was electronically signed by NORAH ZAMORANO M.D. on 02/03/2019 10:30 AM . Narrative 02/03/2019 10:30 AM CDT PROCEDURE: Peripherally Inserted Central Catheter (PICC) placement Procedural Personnel Attending(s): NORAH ZAMORANO M.D. Fellow(s): None Resident(s): None Advanced practice provider(s): CAMILO Marshall Pre-procedure diagnosis: Diabetic foot wound Post-procedure diagnosis: Same Indication(s): Prolonged antimicrobial therapy Additional clinical history: None Complications: No immediate complications. Procedure Note Norah Zamorano MD - 02/03/2019 PROCEDURE: Peripherally Inserted Central Catheter (PICC) placement Procedural Personnel Attending(s): NORAH ZAMORANO M.D. Fellow(s): None Resident(s): None Advanced practice provider(s): CAMILO Marshall Pre-procedure diagnosis: Diabetic foot wound Post-procedure diagnosis: Same Indication(s): Prolonged antimicrobial therapy Additional clinical history: None Complications: No immediate complications. IMPRESSION: Technically successful insertion of right-sided single-lumen 41 cm power injectable supradiaphragmatic PICC, with tip in the expected location of the cavoatrial junction. Plan: The catheter may be used immediately. PROCEDURE SUMMARY: - Venous access with ultrasound guidance - PICC insertion with fluoroscopic guidance PROCEDURE DETAILS: Pre-procedure History and imaging of central venous access reviewed (QCDR): Informed consent for the procedure was obtained and time-out wasperformed prior to the procedure. Prophylactic antibiotic administered: None Preparation (MIPS): The site was prepared and draped using all elementsof maximal sterile barrier technique including sterile gloves, sterilegown, cap, mask, large sterile sheet, sterile ultrasound probe cover, hand hygiene and cutaneous antisepsis with 2% chlorhexidine. Medical reason for site preparation exception (MIPS): Not applicable Anesthesia/sedation Level of anesthesia/sedation: None. Access Local anesthesia was administered. The vessel was sonographically evaluated and judged appropriate for access. Real time ultrasound wasused to visualize needle entry into the vessel and a permanent image was stored. Vein accessed: Right brachial Access vein ultrasound findings: Patent Access technique: 21 gauge micropuncture needle Venography Indication for venography: Not performed Catheter tip position for venography: Not applicable Venous segment imaged: Not applicable Findings: Not applicable Catheter placement The catheter was trimmed to appropriate length and placed into the vein under fluoroscopic guidance via a peel-away sheath. Catheter tiplocation was fluoroscopically verified and image archived. Catheter placed: XYZE power injectable Catheter size: 5 Filipino Catheter intravascular length: 41 cm Catheter tip position: 2.5 vertebral body units (VBUs) below the romina. Unique Device Identifier (EMILIANO): Catheter flush: Hep saline Catheter securement technique: Stat-Lock Sterile dressing(s) applied. Contrast Contrast agent: None Contrast volume: 0 mL Radiation Dose Fluoroscopy time: 0.1 minutes Reference air kerma: Kerma area product: Additional Details Additional description of procedure: None Additional findings: None Equipment details: None Specimens removed: None Estimated blood loss: Less than 10 mL Standardized report: [id number] Attestation NORAH Skinner M.D., attest that I reviewed the stored images and agree with the report as written. This report was approved by Gigi Hawthorne on 01/30/20194:[address] NORAH Skinner M.D. have personally reviewed andinterpreted this examination/study. This report was electronically signed by NORAH ZAMORANO M.D. on 02/03/2019 10:30 AM . Hiwot William MD IR ORDERABLES * VAS ARTERIAL ANKLE ARM INDEX (01/29/2019 11:17 AM CDT) Anatomical Region Laterality Modality Intravascular Ul trasound 01/29/2019 10:3 2 AM CDT Narrative Procedure Note Anderson Bocanegra MD - 01/29/2019 Linn Cuadra MD VASCULAR LAB ORDERAB LES * (ABNORMAL) HEMOGLOBIN A1C (01/29/2019 6:21 AM CDT) Hemoglobin A1c 6.9(H) 4.4 - 6.3 % 01/29/2019 8:08 AM CDT [facility] Estimated Average Glucose 151 mg/dL 01/29/2019 8:08 AM CDT [facility] Comment: HbA1c Interpretation: Treatment target values recommended by ADA and other clinical organizations should be used to evaluate metabolic control in patients. Treatment Target Values: Normal : < 5.7% Pre-diabetes: 5.7-6.4% Diabetes: Equal to or greater than 6.5% Reference: [place] [employer] Standards of Care in Diabetes -2014 In patients 70 years and older consider HbA1c target range of 7.0-7.5% Reference: Diabetes Mellitus in Older People: Position Statement on behalf of the International Association of Gerontology and Geriatrics (IAGG), the Diabetes [employer] for Older People (EDWPOP), and the International Task Force of Experts in Diabetes. Mehrdad Aleman, et al. J [place] [employer]. 2012 Test results diagnostic of diabetes should be repeated for confirmation. The Sebia Capillary 2 assay for the measurement of HbA1c is a National Glycohemoglobin Standardization Program (NGSP)certified method. Blood BLOOD SPECIMEN / Unknown Lab Venipuncture / Unknown 01/29/2019 6:21 AM CDT 01/29/2019 6:47 AM CDT Melisa Meyers MD LAB - CHEMISTRY JOVANNI SEARS [facility] [address] [place] [address] * XR FOOT LEFT 3VW OR MORE (01/28/2019 6:13 PM CDT) Anatomical Region Laterality Modality Ankle / Foot Radiographic Fabiola ging 01/29/2019 7:36 AM CDT Impressions 01/30/2019 8:31 AM CDT IMPRESSION: 1.Soft tissue swelling and defect along the plantar aspect of the forefoot with a 5 mm curvilinear radiopaque foreign body. 2.No cortical regularity or focal osteopenia to suggest osteomyelitis. Dictated by Liam Alcala MD (vice president network development). Dr. ANA Skinner have personally reviewed and interpreted this examination/study. This report was electronically signed by ANA CARDOSO on 01/30/2019 8:31 AM . Narrative 01/30/2019 8:31 AM CDT EXAMINATION: XR FOOT LEFT 3VW OR MORE HISTORY: diabetic foot ulcer COMPARISON: No prior study is available for comparison. FINDINGS: The osseous structures are intact and well aligned without acute fracture or dislocation. The joint spaces are preserved. There is no focal osteopenia or cortical irregularity to suggest osteomyelitis. There is soft tissue swelling and defect along the plantar aspect of the forefoot with a 5 mm curvilinear radiopaque foreign body. This radiopacity projects over the third proximal phalanx on the AP view. There are superior and plantar calcaneal bone spurs. Procedure Note Ana Cardoso, - 01/30/2019 EXAMINATION: XR FOOT LEFT 3VW OR MORE HISTORY: diabetic foot ulcer COMPARISON: No prior study is available for comparison. FINDINGS: The osseous structures are intact and well aligned without acutefracture or dislocation. The joint spaces are preserved. There is no focal osteopenia or cortical irregularity to suggest osteomyelitis. There is soft tissue swelling and defect along the plantar aspect of the forefoot with a 5 mm curvilinear radiopaque foreign body. This radiopacityprojects over the third proximal phalanx on the AP view. There are superior and plantar calcaneal bone spurs. IMPRESSION: 1.Soft tissue swelling and defect along the plantar aspect of theforefoot with a 5 mm curvilinear radiopaque foreign body. 2.No cortical regularity or focal osteopenia to suggest osteomyelitis. Dictated by Liam Alcala MD (vice president network development). Dr. ANA Skinner have personally reviewed and interpreted this examination/study. This report was electronically signed by ANA CARDOSO on 01/30/2019 8:31 AM . Melisa Meyers MD DIAGNOSTIC IMAGING O [place] * CULTURE BLOOD (01/28/2019 3:52 PM CDT) Only the most recent of2 resultswithin the time period is included. Culture No growth day 5 ZIA 02/02/2019 7:30 PM CDT [facility] Blood PERIPHERAL BLOOD / Unknown Venipuncture / Unknown 01/28/2019 3:52 PM CDT 01/28/2019 3:59 PM CDT Melisa Meyers MD LAB - MICROBIOLOGY O RDYARELI Performing Organization Address City/[facility]/ZIP Co de Phone Number [facility] [address] [phone] * (ABNORMAL) C-REACTIVE PROTEIN (01/28/2019 3:51 PM CDT) C-Reactive Protein 14.6(H) <=0.5 mg/dL 01/28/2019 4:24 PM CDT [facility] Blood BLOOD SPECIMEN / Unknown Venipuncture / Unknown 01/28/2019 3:51 PM CDT 01/28/2019 4:00 PM CDT Melisa Meyers MD LAB - CHEMISTRY JOVANNI SEARS [address] [phone] * (ABNORMAL) ERYTHROCYTE SEDIMENTATION RATE (01/28/2019 3:51 PM CDT) Erythrocyte Sedimentation Rate Westergren 113(H) 0 - 20 MM/HR 01/28/2019 4:09 PM CDT [facility] Blood BLOOD SPECIMEN / Unknown Venipuncture / Unknown 01/28/2019 3:51 PM CDT 01/28/2019 3:59 PM CDT Melisa Meyers MD LAB - HEMATOLOGY ORD ERALUKE [facility] [address] [place] [address], [facility] [phone] * LACTIC ACID BLOOD (01/28/2019 3:51 PM CDT) Lactic Acid-Stat 1.4 0.5 - 2.0 mmol/L 01/28/2019 4:13 PM CDT [facility] Blood BLOOD SPECIMEN / Unknown Venipuncture / Unknown 01/28/2019 3:51 PM CDT 01/28/2019 4:00 PM CDT Melisa Meyers MD LAB - CHEMISTRY JOVANNI SEARS Performing Organization Address City/[facility]/ZIP Co de Phone Number [address] [address], [facility] [phone] Care Teams Slot Floor Person Relationship Specialty Start Date End Date Miguelito Albrecht MD [address] [place] [address] [phone] PCP - General 01/28/19
--- OUTSIDE RECORDS SUMMARY | 2024-07-15 19:05 | XMS_ITS | Referral Summary ---
Author Organization [facility] [employer] Address [address] [place] [address] Care Team Providers Care Helicopter Mechanic Name Role Phone Miguelito Albrecht MD Primary Care Provider Source Comments [facility] [employer],non-owned Affiliates and Associated Physician Practices is amultiple site organization consisting of ambulatory clinics and hospital sitesin [place], [place], [place] and [place]. This disclosure is being madepursuant to the Care Everywhere program and may not contain all information available regarding this patient. Last updated 18.[facility] [employer] Allergies No known active allergies Medications * Be aware that medications may not be up to date on this document. Alwaysverify current medications with the patient. Medication Sig Dispensed Refills Start Date End Date Status ONETOUCH ULTRA TEST STRIPS test strip Use 1 strip as directed 300 strip 4 02/19/2019 Active linaGLIPtin (TRADJENTA) 5 MG tablet Take 1 tablet by mouth once daily 30 tablet 02/21/2019 Active BASAGLAR KWIKPEN (BASAGLAR) pen Inject 9 Units subcutaneously once daily 3 03/06/2019 Active citalopram (CELEXA) 20 MG tablet TK 1 T PO QD 6 03/19/2019 Active Insulin Lispro (ADMELOG SOLOSTAR) 100 UNIT/ML B-200=add 2 units, 201-250=add 4 units, 251-300=add 6 units, 301-350=add 8 units, 351-400=add 10 units,>400=add 12 units;NOTIFY PCP>350 1 Pen 04/29/2019 Active HYDROcodone-aceta minophen (NORCO) 5-325 MG tablet Take 1 tablet by mouth every 8 hours as needed for Pain Active Active Problems Problem Noted Date Diagnosed Date Bacteremia 06/20/2021 Acute kidney injury 02/12/2019 MRSA (methicillin resistant staph aureus) cultur e positive 02/12/2019 Diabetic foot infection 01/28/2019 Diabetic ulcer of left foot associated with type 2 diabetes mellitus 01/28/2019 Immunizations Name Administration Dates Next Due INFLUENZA VACCINE 05/05/2019 TD (ADULT), 5 LF TETANUS TOXOID, ADSORBED, PF Social History Tobacco Use Types Packs/Day Years [...] Comments Blood Pressure 148/81 07/01/2019 12:26 PM DIRECTOR CHANNEL Pulse 80 07/01/2019 12:26 PM DIRECTOR CHANNEL Temperature 36.2 C (97.1 F) 07/01/2019 12:26 PM DIRECTOR CHANNEL Respiratory Rate 16 04/29/2019 4:12 AM DIRECTOR CHANNEL Oxygen Saturation 98% 07/01/2019 12:26 PM DIRECTOR CHANNEL Inhaled Oxygen Concentration 40% 04/27/2019 1:45 PM DIRECTOR CHANNEL Weight 115.2 kg (254 lb) 07/01/2019 12:26 PM DIRECTOR CHANNEL Height 188 cm (6' 2 ) 07/01/2019 12:26 PM DIRECTOR CHANNEL Body Mass Index 32.61 07/01/2019 12:26 PM DIRECTOR CHANNEL Functional Status Functional Status Response Date of Assess ment Is person deaf or have serious hearing difficult y? No 04/29/2019 Is person blind or have serious difficulty seein g? No 04/29/2019 Does person have serious dif ficulty walking/climbing stairs? No 04/29/2019 Does person have difficulty dressing/bathing? No 04/29/2019 Does person have difficulty doing errands alone? No 04/29/2019 Cognitive Status Response Date of Assessm ent Does person have difficulty concentrating/remembering/making decisions? No 04/29/2019 Plan of Treatment Not on file Procedures Procedure Name Priority Date/Time Associated Diagnosis Comments BASIC METABOLIC PANEL (CALCIUM TOTAL) Routine 04/29/2019 5:22 AM DIRECTOR CHANNEL Diabetic foot infection (HCC) HEMOGLOBIN A1C Routine 01/29/2019 6:21 AM CDT from Last 3 Months or Most Recently Relevant to Health Maintenance Results * (ABNORMAL) BASIC METABOLIC PANEL (CALCIUM TOTAL) (04/29/2019 5:22 AM DIRECTOR CHANNEL) BUN 21 7 - 26 mg/dL 04/29/2019 5:55 AM [facility] Creatinine 0.9 0.6 - 1.2 mg/dL 04/29/2019 5:55 AM [facility] Sodium 140 136 - 145 mmol/L 04/29/2019 5:55 AM [facility] Potassium 4.1 3.5 - 4.5 mmol/L 04/29/2019 5:55 AM [facility] Chloride 103 98 - 107 mmol/L 04/29/2019 5:55 AM [facility] CO2 29 22 - 29 mmol/L 04/29/2019 5:55 AM [facility] Glucose 151(H) 70 - 115 mg/dL 04/29/2019 5:55 AM [facility] Calcium 9.6 8.4 - 10.2 mg/dL 04/29/2019 5:55 AM [facility] Anion Gap 12 8 - 18 04/29/2019 5:55 AM [facility] BUN/Creatinine Ratio 23 7 - 23 04/29/2019 5:55 AM [facility] Osmolality Calculated 296 270 - 300 mOsm/kg 04/29/2019 5:55 AM [facility] eGFR >60 >60 mL/min/1.7 3 m2 04/29/2019 5:55 AM [facility] Blood BLOOD SPECIMEN / Unknown Venipuncture / Unknown 04/29/2019 5:22 AM DIRECTOR CHANNEL 04/29/2019 5:27 AM [facility] Diana Aguila DO LAB - CHEMISTRY ORDERABLES [facility] [address] [place] [address] * (ABNORMAL) HEMOGLOBIN A1C (01/29/2019 6:21 AM CDT) Hemoglobin A1c 6.9(H) 4.4 - 6.3 % 01/29/2019 8:08 AM CDT [facility] Estimated Average Glucose 151 mg/dL 01/29/2019 8:08 AM CDT [facility] Comment: HbA1c Interpretation: Treatment target values recommended by ADA and other clinical organizations should be used to evaluate metabolic control in patients. Treatment Target Values: Normal : < 5.7% Pre-diabetes: 5.7-6.4% Diabetes: Equal to or greater than 6.5% Reference: [place] Diabetes Association Standards of Care in Diabetes -2014 In patients 70 years and older consider HbA1c target range of 7.0-7.5% Reference: Diabetes Mellitus in Older People: Position Statement on behalf of the International Association of Gerontology and Geriatrics (IAGG), the Diabetes Working Libertarian for Older People (EDWPOP), and the International Task Force of Experts in Diabetes. Mehrdad Aleman, et al. J [place] Medical Directors Association. 2012 Test results diagnostic of diabetes should be repeated for confirmation. The Sebia Capillary 2 assay for the measurement of HbA1c is a National Glycohemoglobin Standardization Program (NGSP)certified method. Blood BLOOD SPECIMEN / Unknown Lab Venipuncture / Unknown 01/29/2019 6:21 AM CDT 01/29/2019 6:47 AM CDT Melisa Meyers MD LAB - CHEMISTRY JOVANNI SEARS [facility] Organization Address City/State/ZIP Co de Phone Number [address] [phone] from Last 3 Months or Most Recently Relevant to Health Maintenance Additional Health Concerns Infection Onset Date Last Indicated MRSA 01/30/2019 04/27/2019 Advance Directives * Full Code (Latest Code Status on File) Date Activated Date Inactivated Comments 04/27/2019 3:41 PM 04/29/2019 10:19 AM * Full Code Date Activated Date Inactivated Comments 02/12/2019 4:48 PM 02/21/2019 12:33 PM * Full Code Date Activated Date Inactivated Comments 01/28/2019 5:44 PM 02/04/2019 6:59 PM Care Teams Helicopter Mechanic Relationship Specialty [place] [address] [place] [address] [phone] PCP - General 01/28/19
--- OUTSIDE RECORDS SUMMARY | 2024-07-15 19:05 | XMS_ITS | Clinical Summary ---
Author Organization [facility] [employer] Address [address] [place] [address] Care Team Providers Care Guitar Maker Name Role Phone Miguelito Albrecht MD Primary Care Provider Source Comments [facility] [employer],non-owned Affiliates and Associated Physician Practices is amultiple site organization consisting of ambulatory clinics and hospital sitesin [place], [place], [place] and [place]. This disclosure is being madepursuant to the Care Everywhere program and may not contain all information available regarding this patient. Last updated 18.[facility] [employer] Allergies No known active allergies Medications * [...] (ADULT), 5 LF TETANUS TOXOID, ADSORBED, PF Family History Medical History Relation Name Comments None Known Father None Known Mother Relation Name Status Comments Father Alive Mother Alive Social History Tobacco Use Types Packs/Day Years [...] Comments Blood Pressure 148/81 07/01/2019 12:26 PM SPIKE MACHINE OPERATOR Pulse 80 07/01/2019 12:26 PM SPIKE MACHINE OPERATOR Temperature 36.2 C (97.1 F) 07/01/2019 12:26 PM SPIKE MACHINE OPERATOR Respiratory Rate 16 04/29/2019 4:12 AM SPIKE MACHINE OPERATOR Oxygen Saturation 98% 07/01/2019 12:26 PM SPIKE MACHINE OPERATOR Inhaled Oxygen Concentration 40% 04/27/2019 1 :45 PM SPIKE MACHINE OPERATOR Weight 115.2 kg (254 lb) 07/01/2019 12:26 PM SPIKE MACHINE OPERATOR Height 188 cm (6' 2 ) 07/01/2019 12:26 PM SPIKE MACHINE OPERATOR Body Mass Index 32.61 07/01/2019 12:26 PM SPIKE MACHINE OPERATOR Plan of Treatment Health Maintenance Due Date Last Done Comments COLOGUARD (AGES 45-75) - COLON CA SCREENING 1967 COLON MONITORING 1967 COLONOSCOPY - COLON CA SCREENING 1967 CT COLONOGRAPHY - COLON CA SCREENING 1967 Colorectal Cancer Screening 1967 FIT - COLON CA SCREENING 1967 FLEX SIG - COLON CA SCREENING 1967 HIV SCREENING 09/22/1982 HEPATITIS C SCREENING 09/18/1985 HEPATITIS B VACCINE (1 of 3 - 19+ 3-dose series) 09/22/1986 PNEUMOCOCCAL VACCINE 50+ (1 of 2 - PCV) 09/22/1986 PNEUMOCOCCAL VACCINE (1 of 2 - PCV) 09/22/1986 DIABETES-STATIN 2007 ZOSTER VACCINE (1 of 2) 09/22/2017 DIABETES RETINOPATHY SCREENING 01/28/2019 DIABETES-FOOT EXAM WITH MONOFILAMENT 01/28/2019 DIABETES-HGB A1C 08/01/2019 01/29/2019 DIABETES-SERUM CREATININE 04/29/20202018, 04/24/2019, 04/01/2019, Additional history exists COVID-19 VACCINE (1 - season) 2024 INFLUENZA VACCINE (#1) 2024 05/05/2019 DEPRESSION SCREENING 06/03/2024 DIABETES - URINE PROTEIN SCREENING 06/03/2024 DTAP/TDAP/TD VACCINES (2 - Td or Tdap) 02/01/2026 02/02/2016 HIB VACCINE Aged Out No longer eligi ble based on patient's age to complete this topic HPV VACCINE Aged Out No longer eligi ble based on patient's age to complete this topic MENINGOCOCCAL (Group B) VACCINE Aged Out No longer eligible based on patient's age to complete this topic MENINGOCOCCAL VACCINE Aged Out No ricky mily eligible based on patient's age to complete this topic Procedures Procedure Name Priority Date/Time Associated Diagnosis Comments BASIC METABOLIC PANEL (CALCIUM TOTAL) Routine 04/29/2019 5:22 AM SPIKE MACHINE OPERATOR Diabetic foot infection (HCC) HEMOGLOBIN A1C Routine 01/29/2019 6:21 AM CDT from Last 3 Months or Most Recently Relevant to Health Maintenance Results * (ABNORMAL) BASIC METABOLIC PANEL (CALCIUM TOTAL) (04/29/2019 5:22 AM SPIKE MACHINE OPERATOR) BUN 21 7 - 26 mg/dL 04/29/2019 5:55 AM [facility] Creatinine 0.9 0.6 - 1.2 mg/dL 04/29/2019 5:55 AM [facility] Sodium 140 136 - 145 mmol/L 04/29/2019 5:55 AM [facility] Potassium 4.1 3.5 - 4.5 mmol/L 04/29/2019 5:55 AM [facility] Chloride 103 98 - 107 mmol/L 04/29/2019 5:55 AM [facility] CO2 29 22 - 29 mmol/L 04/29/2019 5:55 AM [facility] Glucose 151(H) 70 - 115 mg/dL 04/29/2019 5:55 AM [facility] Calcium 9.6 8.4 - 10.2 mg/dL 04/29/2019 5:55 AM [facility] Anion Gap 12 8 - 18 04/29/2019 5:55 AM [facility] BUN/Creatinine Ratio 23 7 - 23 04/29/2019 5:55 AM [facility] Osmolality Calculated 296 270 - 300 mOsm/kg 04/29/2019 5:55 AM [facility] eGFR >60 >60 mL/min/1.7 3 m2 04/29/2019 5:55 AM [facility] Blood BLOOD SPECIMEN / Unknown Venipuncture / Unknown 04/29/2019 5:22 AM SPIKE MACHINE OPERATOR 04/29/2019 5:27 AM [facility] Diana Aguila DO LAB - CHEMISTRY ORDERABLES [address] [phone] * (ABNORMAL) HEMOGLOBIN A1C (01/29/2019 6:21 AM CDT) Hemoglobin A1c 6.9(H) 4.4 - 6.3 % 01/29/2019 8:08 AM [facility] Estimated Average Glucose 151 mg/dL 01/29/2019 8:08 AM [facility] Comment: HbA1c Interpretation: Treatment target values recommended by ADA and other clinical organizations should be used to evaluate metabolic control in patients. Treatment Target Values: Normal : < 5.7% Pre-diabetes: 5.7-6.4% Diabetes: Equal to or greater than 6.5% Reference: [place] Diabetes Association Standards of Care in Diabetes -2014 In patients 70 years and older consider HbA1c target range of 7.0-7.5% Reference: Diabetes Mellitus in Older People: Position Statement on behalf of the International Association of Gerontology and Geriatrics (IAGG), the Diabetes Working Alliance Party for Older People (EDWPOP), and the International Task Force of Experts in Diabetes. Mehrdad Aleman, et al. J [place] Medical Directors Association. 2012 Test results diagnostic of diabetes should be repeated for confirmation. The Sebia Capillary 2 assay for the measurement of HbA1c is a National Glycohemoglobin Standardization Program (NGSP)certified method. Blood BLOOD SPECIMEN / Unknown Lab Venipuncture / Unknown 01/29/2019 6:21 AM CDT 01/29/2019 6:47 AM CDT Melisa Meyers MD LAB - CHEMISTRY JOVANNI SEARS [facility] Organization Address City/State/ZIP Co de Phone Number [address] [phone] from Last 3 Months or Most Recently [...] 5:44 PM 02/04/2019 6:59 PM Care Teams Guitar Maker Relationship Specialty Start Date End Date Miguelito Albrecht MD [address] [place], [place] [phone] PCP - General 01/28/19
--- OUTSIDE RECORDS SUMMARY | 2024-07-15 19:05 | XMS_ITS | Encounter Summary ---
Author Organization [facility] Address [address] [place] [address] Care Team Providers Care Special Skills Officer Name Role Phone Miguelito Albrecht MD Primary Care Provider [phone] Ryley Narvaez MD Unavailable [phone] Encounter Details Date Type Department Care Team (Late st Contact Info) Description 12/22/2018 Abstract [facility] at [address] [phone] Sheela Mtz MA Social History Tobacco Use Types Packs/Day Years Used Date Smoking Tobacco: Never Assessed Sex and Gender Information Value Date Recorded Sex Assigned at Not on file Legal Sex Male 2:49 PM CDT Gender Identity Not on file Sexual Orientation Not on file documented as of this encounter Plan of Treatment Not on file documented as of this encounter Procedures Procedure Name Priority Date/Time Associated Diagnosis Comments HEMOGLOBIN, GLYCOSYLATED Routine 12/15/2018 CBC (OUTSIDE LAB) Routine 09/02/2018 COMPREHENSIVE METABOLIC PANEL Routine 09/02/2018 documented in this encounter Results * HEMOGLOBIN, GLYCOSYLATED (12/15/2018) HGB A1C 7.3 12/15/2018 [facility] LABORATORY Edited Resul t - Final * CBC (OUTSIDE LAB) (09/02/2018) WBC 6.5 HGB 17.0 HCT 49.9 PLT 224 09/02/2018 [facility] LAB-OUTSIDE/ABSTRACTED Final Result * COMPREHENSIVE METABOLIC PANEL (09/02/2018) SODIUM S/P/B 136 POTASSIUM S/P/B 4.2 CO2 26 CHLORIDE S/P/B 97 GLUCOSE 341 mg/dL CALCIUM S/P/B 9.9 BUN 19 CREATININE S/P/B 0.89 0.7 - 1.3 EGFR AFR. AMER. 109 EGFR NON-AFR. AMER. 90 <=90 ALKALINE PHOSPHATASE S/P/B 103 ALT 31 AST 32 BILIRUBIN TOTAL S/P/B 0.50 ALBUMIN S/P/B 4.5 3.5 - 5.0 TOTAL PROTEIN S/P/B 7.3 GLOBULIN 2.8 09/02/2018 [facility] LABORAT[facility] Edited Resul t - Final documented in this encounter Visit Diagnoses Not on filedocumented in this encounter Care Teams Special Skills Officer Relationship Specialty Start Date End Date Miguelito Albrecht MD [address] [place] [address] PCP - General INTERNAL MEDICINE 12/18/18 Ryley Narvaez MD [id number] [place] [address] EP Wood Inspector CARDIOVASCULAR DISEASE 12/29/18 documented as of this encounter
--- OUTSIDE RECORDS SUMMARY | 2024-07-15 19:05 | XMS_ITS | Clinical Summary ---
Author Organization [facility] Address [address] [place] [address] Care Team Providers Care Glass Driller Name Role Phone Miguelito Albrecht MD Primary Care Provider [phone] HusRyley garcia MD Unavailable [phone] Allergies No known active allergies Medications glipiZIDE XL 10 MG 24 hr tablet Take 10 mg by mouth daily. 0 9 Active lisinopril 2.5 MG tablet Take 2.5 mg by mouth daily. 0 9 Active metFORMIN 850 MG tablet Take 850 mg by mouth 2 (two) times daily. 1 9 Active simvastatin 20 MG tablet Take 20 mg by mouth nightly at bedtime. 2 9 Active amoxicillin-cla vulanate 875-125 MG tablet Take 1 tablet by mouth every 12 (twelve) hours. 0 9 Active sulfamethoxazol e-trimethoprim 800-160 MG tablet Take 1 tablet by mouth every 12 (twelve) hours. 0 9 Active sildenafil (VIAGRA) 100 MG tablet Take 1/2 to 1 tablet as needed for erectile dysfunction 0 9 Active Active Problems Problem Noted Date Diagnosed Date Hyperlipidemia Tachycardia Family History Medical History Relation Comments CABG Mother Relation Status Comments Brother 1 Alive Brother 2 Alive Father Alive Mother Alive Sister Alive Social History Tobacco Use Types Packs/Day Years Used Date Smoking Tobacco: Every Day Cigarettes Smokeless Tobacco: Never Alcohol Use Standard Drinks/Week Comments Yes 0 (1 standard drink = 0.6 oz pur e alcohol) occasional Sex and Gender Information Value Date Recorded Sex Assigned at Not on file Legal Sex Male 2:49 PM CDT Gender Identity Not on file Sexual Orientation Not on file Last Filed Vital Signs Vital Sign Reading Time Taken Comments Blood Pressure 126/68 12/30/2018 2:36 PM CDT Pulse 82 12/30/2018 2:36 PM CDT Temperature - - Respiratory Rate - - Oxygen Saturation 97% 12/30/2018 2:36 PM CDT Inhaled Oxygen Concentration - - Weight 105.7 kg (233 lb) 12/30/2018 2:36 PM CDT Height 182.9 cm (6') 12/30/2018 2:36 PM CDT Body Mass Index 31.6 12/30/2018 2:36 PM CDT Plan of Treatment Health Maintenance Due Date Last Done Comments Colorectal Cancer Screening Colonoscopy (10 Years) 1967 Annual Physical 09/22/1970 Hepatitis C 09/22/1985 Hepatitis B Vaccines (1 of 3 - 19+ 3-dose series) 09/22/1986 DTaP, Tdap and Td Vaccines ( 1 - Tdap) 02/03/2016 02/02/2016 Zoster Vaccines (1 of 2) 09/22/2017 COVID-19 Vaccine ( - 2023-2 5 season) 2024 Influenza Adult (#1) 2024 Meningococcal B Vaccine Aged Out No l onger eligible based on patient's age to complete this topic Meningococcal Vaccine Aged Out No ricky mily eligible based on patient's age to complete this topic Pneumococcal Vaccine: Pediat rics (0 to 5 Years) and At-Risk Patients (6 to 64 Years) Aged Out No longer eligi ble based on patient's age to complete this topic RSV Immunizations Under 20 Months Aged Out No longer eligible based on patient's age to complete this topic Care Teams Glass Driller Relationship Specialty Start Date End Date Miguelito Albrecht MD [address] [place] [address] PCP - General INTERNAL MEDICINE 12/18/18 Ryley Narvaez MD [id number] [place] [address] EP Parole Board Member CARDIOVASCULAR DISEASE 12/29/18
--- OUTSIDE RECORDS SUMMARY | 2024-07-15 19:05 | XMS_ITS | Data Portability ---
Author Organization [facility], Main Office Address [address] [place] [address] Care Team Providers Care Freight Associate Name Role Phone FOUZIA SMITH Primary Care Provider FOUZIA SMITH Referring Provider [phone] Assessment Encounter Date Assessment Date Assessment LastModified by Organization Details LastModified Time 01/07/2023 01/07/2023 This note is dictated and transcribed by [employer]. Pig Breeder variances may occur. Despite proofreading, typographical errors may occur. Not available 01/07/2023 14:44:36 04/08/2023 04/08/2023 This note is dictated and transcribed by [employer]. Pig [employer] variances may occur. Despite proofreading, typographical errors may occur. Not available 04/08/2023 11:47:55 04/17/2023 04/17/2023 This note is dictated and transcribed by [employer]. Pig [employer]eder variances may occur. Despite proofreading, typographical errors may occur. Not available 04/17/2023 17:14:27 12/26/2023 12/26/2023 This note is dictated and transcribed by [employer]. Pig Breeder variances may occur. Despite proofreading, typographical errors may occur. Occasional wrong-word or '[id number]' substitutions may have occurred due to the inherent limitations of voice recording. Read the chart carefully and recognize, using context, where substitutions have occurred. Not available 12/26/2023 13:03:29 Plan of Treatment Reminders Order Date Submit Date Provider Last Modified By Organization Details Last Modified Time Details Appointments None recorded. Lab None recorded. Referral None recorded. Procedures None recorded. Surgeries None recorded. Imaging None recorded. Medication Orders glimepiride 1 mg tablet 2022 023 [id number], [address], [place], [place], [id number], 3 09:52:33 gentamicin 0.1 % topical cream 2023 024 [facility] #[id number], [address], [place], [place], [id number], 4 13:04:27 Patient TargetsNo targets recorded. Patient InstructionsNo instructions recorded. Reason for Referral None Reported. Results Created Date Observation Date Name Description Value Unit Range Abnormal Flag Note LastModifiedBy Organization Detail LastModifiedTime 01/11/2001/10/2023 COMPR EHENS JAGDISH METAB OLIC PANEL sodium 142 mmol/ L 137-14 5 Not Available [facility] (Lab) [address] [place], [address], 01/10/2023 10:03:46 01/11/20 23 01/10/2023 COMPR EHENS JAGDISH METAB OLIC PANEL potassium 4.8 mmol/ L 3.5-5. 1 Not Available [facility] (Lab) [address] [place], [address], 01/10/2023 10:03:46 01/11/20 23 01/10/2023 COMPR EHENS JAGDISH METAB OLIC PANEL chloride 105 mmol/ L 98-107 Not Available [facility] (Lab) [address] [place], [address], 01/10/2023 10:03:46 01/11/20 23 01/10/2023 COMPR EHENS JAGDISH METAB OLIC PANEL carbon dioxide 30 mmol/ L 22-30 Not Available [facility] (Lab) [address] [place], [address], 01/10/2023 10:03:46 01/11/20 23 01/10/2023 COMPR EHENS JAGDISH METAB OLIC PANEL anion gap 11.8 mmol/ L 14-22 low Not Available [facility] (Lab) [address] [place], [address], 01/10/2023 10:03:46 01/11/20 23 01/10/2023 COMPR EHENS JAGDISH METAB OLIC PANEL glucose 128 mg/dL 70-99 high Not Available [facility] (Lab) [address] [place], [address], 01/10/2023 10:03:46 01/11/20 23 01/10/2023 COMPR EHENS JAGDISH METAB OLIC PANEL BUN 25 mg/dL 8-19 high Not Available [facility] (Lab) [address] [place], [address], 01/10/2023 10:03:46 01/11/20 23 01/10/2023 COMPR EHENS JAGDISH METAB OLIC PANEL creatinine 0.98 mg/dL 0.66-1 .25 Not Available [facility] (Lab) [address] [place], [address], 01/10/2023 10:03:46 01/11/20 23 01/10/2023 COMPR EHENS JAGDISH METAB OLIC PANEL GFR >60 Refer ence Range : Beatty ge GFR Healt hy Adult : >60 mL/mi n/1.7 3 m2 Chron ic Kidne y Disea se: 15-60 mL/mi n/1.7 3 m2 Kidne y Failu re: <15/m L/min /1.73 m2 www.n iddk. nih.g ov The MDRD study equat ion has not been valid ated in child baldev <18 years of age; pregn ant women ; the elder ly >85 years of age; or in some racia l or ethni c subgr oups, such as Hispa nics. Outsi de the valid ated darrius eters , estim ated GFR is less accur ate, requi ring clini luisa judgm ent on a case- by-ca se basis . Clini luisa inter preta tion for other races and ages must be made by the clini obdulia. The MDRD study equat ion has not been valid ated for the evalu ation of serum creat inine relat ed to nutri sobia l statu s or medic ation usage . For perso ns <18 years of age, a pedia tric GFR calcu lator is avail able on the [facility] websi te: https ://toma w.yeison ramosy.o rg/pr ofess ional s/kdo qi/gf r_cal culat or Not Available [facility] (Lab) [address] [place], [address], 01/10/2023 10:03:46 01/11/20 23 01/10/2023 COMPR EHENS JAGDISH METAB OLIC PANEL alkaline phosphatase 96 U/L 38-126 Not Available [facility] (Lab) [address] [place], [address], 01/10/2023 10:03:46 01/11/20 23 01/10/2023 COMPR EHENS JAGDISH METAB OLIC PANEL alanine aminotransfe rase 37 U/L 0-50 Not Available [facility] (Lab) [address] [place], [address], 01/10/2023 10:03:46 01/11/20 23 01/10/2023 COMPR EHENS JAGDISH METAB OLIC PANEL aspartate aminotransfe rase 35 U/L 15-46 Not Available [facility] (Lab) [address] [place], [address], 01/10/2023 10:03:46 01/11/20 23 01/10/2023 COMPR EHENS JAGDISH METAB OLIC PANEL bilirubin, total 0.50 mg/dL 0.20-1 .30 Not Available [facility] (Lab) [address] [place], [address], 01/10/2023 10:03:46 01/11/20 01/10/2023 COMPR EHENS JAGDISH METAB OLIC PANEL calcium 9.3 mg/dL 8.4-10 .2 Not Available [facility] (Lab) [address] [place], [address], 01/10/2023 10:03:46 01/11/20 23 01/10/2023 COMPR EHENS JAGDISH METAB OLIC PANEL total protein 7.4 g/dL 6.3-8. 2 Not Available [facility] (Lab) [address] [place], [address], 01/10/2023 10:03:46 01/11/20 23 01/10/2023 COMPR EHENS JAGDISH METAB OLIC PANEL albumin 4.5 g/dL 3.4-5. 0 Not Available [facility] (Lab) [address] [place], [address], 01/10/2023 10:03:46 01/11/20 23 01/10/2023 COMPR EHENS JAGDISH METAB OLIC PANEL globulin 2.9 g/dL 2.6-4. 2 Not Available [facility] (Lab) [address] [place], [address], 01/10/2023 10:03:46 01/11/20 23 01/10/2023 COMPR EHENS JAGDISH METAB OLIC PANEL A/G ratio 1.6 ratio 1.0-2. 0 Not Available [facility] (Lab) [address] [place], [address], 01/10/2023 10:03:46 01/11/20 23 01/10/2023 LIPID PANEL cholesterol 106 mg/dL 140-19 9 low NIH NILAM NSUS RECOM MENDA TION FOR MEGGAN STERO L: ADULT CHILD LOW RISK: <200 <170 BORDE RLINE : <200- 239 ----- HIGH RISK: >240 >200 Not Available [facility] (Lab) [address] [place], [address], 01/10/2023 10:03:51 01/11/20 23 01/10/2023 LIPID PANEL triglyceride s 60 mg/dL 0-150 NIH NILAM NSUS REPOR T RECOM MENDA TION FOR TRIGL YCERI LAURA: ADULT CHILD LOW RISK: <150 ----- BODER LINE: 150-1 99 ----- HIGH RISK: >200 ----- Not Available [facility] (Lab) [address] [place], [address], 01/10/2023 10:03:51 01/11/20 23 01/10/2023 LIPID PANEL HDL cholesterol 39 mg/dL 40- low Not Available [facility] (Lab) [address] [place], [address], 01/10/2023 10:03:51 01/11/20 23 01/10/2023 LIPID PANEL LDL cholesterol, calculated 55 mg/dL 0-130 NIH NILAM NSUS REPOR T RECOM MENDA TIONS FOR LDL: ADULT CHILD LOW RISK <130 <110 (OPTI MAL LDL) <100 ----- BORDE RLINE : 130-1 59 ----- HIGH RISK: >160 >130 A TRIGL YCERI DE RESUL T >400 INVAL IDATE S THE CALCU LATIO N FOR LDL FRACT IONAT ION - THE LDL RESUL T WILL NOT BE REPOR NICOLAS. Not Available [facility] (Lab) [address] [place], [address], 01/10/2023 10:03:51 01/11/20 23 01/10/2023 T4 FREE free T4 1.02 NG/dL 0.78-2 .19 Not Available [facility] (Lab) [address] [place], [address], 01/10/2023 10:18:14 01/11/20 23 01/10/2023 TSH thyroid-stim ulating hormone 0.347 uIU/m L 0.465- 4.680 low Not Available [facility] (Lab) [address] [place], [address], 01/10/2023 10:34:27 01/11/20 23 01/10/2023 HEMOG LOBIN A1C HA1C 5.4 % 4.0-6. 0 Diabe ej Scree deep Crite angelica: <5.7% Consi stent with absen ce of diabe ej 5.7-6 .4% Consi stent with incre ased risk for diabe ej (pred iabet es) >OR=6 .5% Consi stent with diabe ej REFER ENCE: Diabe ej Care 2016, 39(Bhardwaj ppl.1 ):s13 -s22 Not Available [facility] (Lab) [address] [place], [address], 01/10/2023 12:11:03 01/11/20 23 01/10/2023 MICRO ALBUM N RNDM W/CRE AT RATIO ur creat 114.83 mg/dL REFER ENCE RANGE NOT ESTAB LISHE D FOR RANDO M URINE CREAT ININE Not Available [facility] (Lab) [address] [place], [address], 01/10/2023 16:12:11 01/11/20 23 01/10/2023 MICRO ALBUM N RNDM W/CRE AT RATIO microalbumin , urine 80.1 mg/L 0.0-16 .6 high Not Available [facility] (Lab) [address] [place], [address], 01/10/2023 16:12:11 01/11/20 23 01/10/2023 MICRO ALBUM N RNDM W/CRE AT RATIO microalbumin /creatinine ratio 70 mcg/m g 0-29 high THE AMERI CAN DIABE EJ ASSOC IATIO N DEFIN ES ABNOR MALIT IES IN ALBUM IN EXCRE TION FOLLO WS: CATEG ORY RESUL T (MCG/ MG CREAT ININE ) AYLIN L <30 MICRO ALBUM INURI A 30-29 9 CLINI LUISA ALBUM INURI A > OR = 300 THE ADA RECOM MENDS THAT 2 OF 2 SPECI MENS COLLE CTED WITHI N A 3- TO 6-MON PERIO D BE ABNOR MAL BEFOR E CONSI BROOKS G A PATIE NT TO HAVE CROSS ED ONE OF THESE DIAGN OSTIC THRES HOLDS . REFER ENCE: DIABE EJ CARE, VOL. 26: S94-S Brooke, OLI RY 2002 Not Available [facility] ([facility]) [address] [place], [address], 01/10/2023 16:12:11 Result Notes None recorded. 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 Active 2021 Not Available [facility] 3 20:59:40 Bilateral shoulder joint pain 5676165639448 9104 Active 2021 Not Available [facility] 3 20:59:41 Peripheral neuropathy due to type 2 diabetes mellitus 2049462939208 Active 2019 Not Available [facility] 3 20:59:41 Postoperat jagdish visit 438778781 Active 2021 Not Available [facility] 3 20:59:41 Partial thickness rotator cuff tear 328474285 Active 2021 Not Available [facility] 3 20:59:41 Partial thickness rotator cuff tear 628088864 Active 2021 Not Available [facility] 3 20:59:41 Acute osteomyeli tis of phalanx of toe 569571732 Active 2021 Not Available [facility] 3 20:59:41 Knee pyogenic arthritis 743058631 Active 2021 Not Available [facility] 3 20:59:41 Pain in toe 840548951 Active 2021 Not Available [facility] 3 20:59:41 Osteoarthr itis of right knee joint 5968345811593 00 Active 2021 Not Available [facility] 3 20:59:42 Dyslipidem ia 045394914 Active 2021 Not Available [facility] 3 20:59:42 Diabetic foot ulcer 206873656 Active 2019 Not Available [facility] 3 20:59:42 Type 2 diabetes mellitus 16313404 Active 2021 Not Available [facility] 3 20:59:42 Uncontroll ed type 2 diabetes mellitus 400587498 Active 2021 Not Available [facility] 3 20:59:42 Pain of left knee joint 7448769000676 07 Active 2021 Not Available [facility] 3 20:59:42 Diabetes mellitus 43096585 Active 2019 Not Available [facility] 3 20:59:42 Amputated toe of right foot 668370966 Active 2021 Not Available [facility] 3 20:59:43 Arthritis 0250800 Active 2022 Marci garcia, [facility] 3 16:24:25 Dementia 62556461 Active 2022 Marci garcia, [facility] 3 16:24:42 Depressive disorder 61344528 Active 2022 Marci garcia, [facility] 3 16:24:51 Diabetic peripheral neuropathy 528314576 Active 2022 Zay Laird DPM [address], [place], [address] , [facility] 3 17:03:20 Dystrophia unguium 04518024 Active 2022 Zay Laird DPM [address], [place], [address] , [facility] 3 17:04:08 Foot callus 641524042 Active 2022 Zay Laird DPM [address], [place], [address] , [facility] 3 17:04:12 History of amputation of right great toe 8782791088760 9105 Active 2022 Zay Laird DPM [address], [place], [address] , [employer] 3 17:04:22 History of amputation of right lesser toe 6936352441014 9100 Active 2022 Zay Laird DPM [address], [place], [address] , [employer] 3 17:04:23 Acquired varus heel 049027604 Active 2022 Zay Laird DPM [address], [place], [address] , [employer] 3 14:44:11 Well controlled type 2 diabetes mellitus 826780722 Active 2022 Renee Lynch MD [address], [place], [address] , [facility] 3 09:50:39 Ulcer of foot 23157179 Active 2022 Zay Laird DPM [address], [place], [address] , [employer] 3 11:47:17 Notes:Some problems listed i n Documents: #[id number], #[id number] could not be added to this patient's chart. Please review these documents and add these problems to the patient's chart manually as needed. Problem Notes None recorded. Procedures Surgical History Date Name Laterality Status Provider Name and Address Organization Details Recorded Time 12/26/19 24 Nail Debridement completed Zay Laird DPM [address], [place], [address], [employer] 12/26/2023 13:03:19 04/17/20 23 Wound Care-Podiatry completed Zay Laird DPM [address], [place], [address], [employer] 04/18/2023 09:26:35 04/08/20 23 Wound Care-Podiatry completed Zay Laird DPM [address], [place], [address], [facility] [employer] [facility] [email or web address] [facility] 04/08/2023 11:44:19 01/08/20 23 Nail Debridement completed Zay Laird DPM [address], [place], [address], [facility] [employer] [facility] [email or web address] [facility] 01/24/2023 09:00:35 01/08/20 23 Callus Debridement 2-4 completed Zay Laird DPM [address], [place], [address], [facility] [employer] [facility] [employer] [facility] 01/24/2023 09:00:27 10/09/19 23 Nail Debridement completed Zay Laird DPM [address], [place], [address], [facility] [employer] [facility] [email or web address] [facility] 10/08/2022 17:03:05 10/09/19 23 Callus Debridement 2-4 completed Zay Laird DPM [address], [place], [address], [facility] [employer] [facility] [email or web address] [facility] 10/08/2022 17:03:09 Foot Surgery completed Not Available [facility] 08/01/2022 20:58:20 Carpal tunnel surgery completed Not Available [facility] 08/01/2022 20:58:20 amputation of toe completed Not Available [facility] 08/01/2022 20:58:20 Knee Surgery completed Not Available [facility] 08/01/2022 20:58:20 Unlisted px lungs & pleura completed Not Available [facility] 08/01/2022 20:58:20 Imaging Results None recorded. Procedure Notes None recorded. Medical Equipment None Reported. Allergies Allergen ID Allergen Name Allergen Category Reaction Reaction Severity Criticality Documentation Date Start Date Code Code System Note Provider Name and Address Organization Details Recorded Time 90772 vancomyci n medicatio n Not available Not available Not available 08/01/2022 91382 RxNorm Not Available [facility] 21:01:54 Medications Name Sig Start Date Stop Date Status Note LastModified by Organization Details LastModified Time celecoxib 200 mg capsule TAKE 1 CAPSULE BY MOUTH EVERY DAY 12/25 completed Not Available Not Available Not Available amoxicillin 500 mg capsule TAKE 1 CAPSULE BY MOUTH TWICE DAILY FOR 7 DAYS DIRECTED 08/08 completed Not Available Not Available Not Available atorvastati n 40 mg tablet TAKE 1 TABLET BY MOUTH EVERY DAY DIRECTED active Not Available Not Available No t Available metformin 500 mg tablet TAKE 1 TABLET BY MOUTH TWICE DAILY 08/08 completed Not Available Not Available Not Available atorvastati n 20 mg tablet Take 1 tablet every other day by oral route at bedtime for 90 days. active Not Available Not Available No t Available nicotine 14 mg/24 hr daily transdermal patch 12/25 completed Not Available Not Available Not Available fluconazole 150 mg tablet TK 1 T PO QD FOR 1 DAY UTD active Not Available Not Available No t Available citalopram 10 mg tablet TK 1 T PO QD UTD FOR 5 DAYS 09/08 completed Not Available Not Available Not Available hydrocodone 5 mg-acetamin ophen 325 mg tablet TAKE 1 TABLET BY MOUTH EVERY 8 HOURS NEEDED FOR BREAKTHRO UGH PAIN 01/18 completed Not Available Not Available Not Available glipizide ER 10 mg tablet, extended release 24 hr TK 1 T PO D 11/29 completed Not Available Not Available Not Available doxycycline hyclate 50 mg capsule TK 1 C PO Q 12 H 09/08 completed Not Available Not Available Not Available metformin 850 mg tablet TK 1 T PO BID WITH MEALS 11/29 completed Not Available Not Available Not Available ciprofloxac in 500 mg tablet TAKE 1 TABLET BY MOUTH EVERY 12 HOURS THOUGH 09/03/2112/19 completed Not Available Not Available Not Available sulfamethox azole 800 mg-trimetho prim 160 mg tablet TAKE 1 TABLET BY MOUTH EVERY 12 HOURS FOR 7 DAYS DIRECTED 12/26 completed Not Available Not Available Not Available doxycycline monohydrate 100 mg tablet Take 1 tablet twice a day by oral route for 5 days. 10/08 completed Not Available Not Available Not Available glimepiride 2 mg tablet TAKE 2 TABLETS BY MOUTH TWICE DAILY BEFORE MEALS 10/08 completed Not Available Not Available Not Available glimepiride 1 mg tablet TAKE 1 TABLET BY MOUTH EVERY DAY WITH A MEAL active Not Available Not Available No t Available oxycodone-a cetaminophe n 5 mg-325 mg tablet TAKE 1 TABLET BY MOUTH EVERY 4 HOURS NEEDED FOR PAIN RATED 7-10 12/26 completed Not Available Not Available Not Available citalopram 20 mg tablet TK 1 T PO QD 09/08 completed Not Available Not Available Not Available famotidine 20 mg tablet TAKE 1 TABLET BY MOUTH TWICE DAILY DIRECTED 12/26 completed Not Available Not Available Not Available amitriptyli ne 25 mg tablet TAKE 1 TABLET BY MOUTH EVERY DAY AT BEDTIME active Not Available Not Available No t Available OneTouch Ultra Test strips USE DIRECTED TWICE DAILY active Not Available Not Available No t Available Kenalog 10 mg/mL suspension for injection In office injection administe red by the provider 10/08 completed [facility]: 0003- 0494- 20 Not Available Not Available Not Available doxycycline monohydrate 100 mg capsule TAKE 1 CAPSULE BY MOUTH TWICE DAILY 10/08 completed Not Available Not Available Not Available cephalexin 500 mg capsule TK 1 C PO Q 6 H FOR 7 DAYS UTD active Not Available Not Available No t Available simvastatin 20 mg tablet TK 1 T PO QPM 01/10 completed Not Available Not Available Not Available lisinopril 10 mg tablet Take 1 tablet every day by oral route in the morning for 90 days. active Not Available Not Available No t Available glimepiride 4 mg tablet TAKE 1 TABLET BY MOUTH TWICE DAILY WITH MEALS 01/18 completed Not Available Not Available Not Available nicotine 21 mg/24 hr daily transdermal patch 12/25 completed Not Available Not Available Not Available gabapentin 300 mg capsule TAKE 1 CAPSULE BY MOUTH THREE TIMES DAILY DIRECTED 12/26 completed Not Available Not Available Not Available gentamicin 0.1 % topical cream APPLY A SMALL AMOUNT TO THE AFFECTED TOE ULCER THREE TIMES DAILY active Not Available Not Available No t Available diclofenac sodium 75 mg tablet,kaden yed release TAKE 1 TABLET BY MOUTH TWICE DAILY 01/18 completed Not Available Not Available Not Available mupirocin 2 % topical ointment APPLY TOPICALLY TO WOUND DAILY 10/08 completed Not Available Not Available Not Available insulin lispro (U-100) 100 unit/mL subcutaneou s solution Inject by subcutane ous route. 01/18 completed Not Available Not Available Not Available levofloxaci n 750 mg tablet Take 1 tablet every day by oral route for 7 days. active Not Available Not Available No t Available SSD 1 % topical cream APPLY 1/16 INCH THICK LAYER TO ENTIRE WOUND BID. active Not Available Not Available No t Available metformin ER 500 mg tablet,exte nded release 24 hr TAKE 1 TABLET BY MOUTH TWICE DAILY DIRECTED FOR DIABETES MELLITUS active Not Available Not Available No t Available clotrimazol e 1 % topical cream SE EXT TO THE AFFECTED AND SURROUNDI NG AREAS BID IN THE MORNING AND IN THE BERHANE active Not Available Not Available No t Available lisinopril 2.5 mg tablet TK 1 T PO D 01/10 completed Not Available Not Available Not Available doxycycline hyclate 100 mg tablet TAKE 1 TABLET BY MOUTH TWICE DAILY DIRECTED 12/19 completed Not Available Not Available Not Available amoxicillin 875 mg-potassiu m clavulanate 125 mg tablet TAKE 1 TABLET BY MOUTH EVERY 12 HOURS FOR 7 DAYS DIRECTED 10/08 completed Not Available Not Available Not Available amoxicillin 500 mg-potassiu m clavulanate 125 mg tablet TK 1 T PO Q 12 H 09/08 completed Not Available Not Available Not Available nicotine 7 mg/24 hr daily transdermal patch 12/25 completed Not Available Not Available Not Available Dulcolax (bisacodyl) 5 mg tablet,kaden yed release 10/08 completed Not Available Not Available Not Available aripiprazol e 10 mg tablet TAKE 1 TABLET BY MOUTH EVERY DAY IN THE MORNING active Not Available Not Available No t Available aripiprazol e 5 mg tablet 10/08 completed Not Available Not Available Not Available metoprolol tartrate 25 mg tablet TAKE 1 TABLET BY MOUTH TWICE DAILY DIRECTED active Not Available Not Available No t Available duloxetine 30 mg capsule,del ayed release TAKE 1 CAPSULE BY MOUTH EVERY DAY AT BEDTIME active Not Available Not Available No t Available BD Ultra-Fine Mini Pen Needle 31 gauge x 3/16 U UTD WITH INSULIN D 12/26 completed Not Available Not Available Not Available peg 3350-electr olytes 236 gram-22.74 gram-6.74 gram-5.86 gram solution 10/08 completed Not Available Not Available Not Available BD Ultra-Fine Diane Pen Needle 32 gauge x 5/32 U ONCE A DAY 12/26 completed Not Available Not Available Not Available Tradjenta 5 mg tablet TK 1 T PO QD UTD active Not Available Not Available No t Available ropivacaine (PF) 5 mg/mL (0.5 %) injection solution Take 40 mg by injection route. 10/08 completed Not Available Not Available Not Available SilvrStat 32 PPM topical gel SE UTD QD active Not Available Not Available No t Available Victoza 3-Desean 0.6 mg/0.1 mL (18 mg/3 mL) subcutaneou s pen injector INJECT 1.8 MG UNDER THE SKIN EVERY DAY 12/25 completed Not Available Not Available Not Available Jardiance 25 mg tablet TAKE 1 TABLET BY MOUTH EVERY DAY IN THE MORNING active Not Available Not Available No t Available Basaglar KwikPen U-100 Insulin 100 unit/mL (3 mL) subcutaneou s inject 10 units in morning and 15 units at bedtime active Not Available Not Available No t Available TRUEplus Pen Needle 31 gauge x 5/16 INJECT VICTOZA ONCE DAILY FOR 90 DAYS active Not Available Not Available No t Available Admelog SoloStar U-100 Insulin lispro 100 unit/mL subcutaneou s pen Inject by subcutane ous route. 12/26 completed Not Available Not Available Not Available OneTouch Ultra Blue Test Strip USE TO TEST BS TID BEFORE MEALS active Not Available Not Available No t Available OneTouch Ultra2 Meter USE DIRECTED active Not Available Not Available No t Available OneTouch Delica Plus Lancet 33 gauge USE TO TEST YOUR BLOOD SUGAR THREE TIMES DAILY active Not Available Not Available No t Available OneTouch Delica Plus Lancet 30 gauge active Not Available Not Available Not Available Vitals Date Recorded Body height Body mass index (BMI) Body weight Heart rate Respiratory rate Oxygen saturation Oxygen saturation in Arterial blood by Pulse oximetry Systolic blood pressure Diastolic blood pressure Provider Name and Address Organization Details Last Updated DateTime 3 187.96 cm 29.5 kg/m2 344071. 25 g 94 /min 14 /min 98 % 98 % 107 mm[Hg] 75 mm[Hg] Frances SANDERS [place] [employer] [facility] 3 12:29:43 Date Recorded Body height Body mass index (BMI) Body weight Body temperature Respiratory rate Heart rate Systolic blood pressure Diastolic blood pressure Provider Name and Address Organization Details Last Updated DateTime 3 187.96 cm 30 kg/m2 427419. 9 g 97.8 [degF] 12 /min 60 /min 110 mm[Hg] 72 mm[Hg] Sherri Gonzalez RN [facility] [email or web address] [facility] 3 09:35:12 Date Recorded Body height Provider Name an d Address Organization Details Last Updated DateTime 04/08/2023 187.96 cm Marci Bunch [facility] 04/08/2023 11:22:44 Date Recorded Body height Heart rate Respiratory rate Body temperature Oxygen saturation Oxygen saturation in Arterial blood by Pulse oximetry Systolic blood pressure Diastolic blood pressure Provider Name and Address Organization Details Last Updated DateTime 3 187.96 cm 56 /min 18 /min 97.2 [degF] 100 % 100 % 125 mm[Hg] 74 mm[Hg] Agueda Mujica RN [facility] [email or web address] [facility] 3 17:08:01 Date Recorded Body height Body mass index (BMI) Body weight Heart rate Respiratory rate Body temperature Systolic blood pressure Diastolic blood pressure Provider Name and Address Organization Details Last Updated DateTime 4 187.96 cm 29.9 kg/m2 736690. 02 g 60 /min 16 /min 98.6 [degF] 120 mm[Hg] 70 mm[Hg] [place] Darnell MA [facility] [email or web address] [facility] 4 12:52:14 Social History Question Answer Notes LastModified by Organizat ion Details LastModified Time Tobacco Smoking Status Current Every Day Smoker Not Available [facility] 08/01/2022 20:57:55 What Is Your Level Of Alcohol Consumption? Occasional [email or web address] Information not available 10/08/2022 What Is Your Level Of Caffeine Consumption? Heavy [id number] Information not available 08/01/2022 In The 14 Days Before Symptom Onset, Have You Had Close Contact With A Laboratory-confir med COVID-19 While That Case Was Ill? No [id number] Information not available 08/01/2022 In The 14 Days Before Symptom Onset, Have You Had Close Contact With A Person Who Is Under Investigation For COVID-19 While That Person Was Ill? No [id number] 2593 Information not available 08/01/2022 What Type Of Diet Are You Following? REGULAR MIGRATION.[id number] Information not available 08/01/2022 Do You Or Have You Ever Used E-cigarettes Or Vape? Never Used Electronic Cigarettes MIGRATION.[id number] Information not available 08/01/2022 What Is Your Relationship Status? MIGRATION.[id number] 4776 Information not available 08/01/2022 How Much Tobacco Do You Smoke? 0.5 PPD MIGRATION.820838 8906 Information not available 08/01/2022 Do You Use Any Illicit Or Recreational Drugs? No MIGRATION.349015 8782 Information not available 08/01/2022 Have You Recently Traveled Abroad? No MIGRATION.[id number] 9831 Information not available 08/01/2022 Do You Have Any Dietary Restrictions? No MIGRATION.[id number] 5055 Information not available 08/01/2022 Sex: Male Functional Status None recorded. Mental Status None recorded. Family History Nothing Reported. Medical History Condition Response ARTHRITIS Y DIABETES, TYPE Y DEPRESSION (INCLUDING POST ) Y HYPERTENSION Y Past Encounters Encounter ID Performer Location Encounter Start Date Encounter Closed Date Diagnosis/Indication Diagnosis SNOMED-CT Code Diagnosis ICD10 Code Diagnosis Note [id number] _LISA_M IGRATION_ DEFAULT_1 _1 , 09/08/2020 00:00:00 09/08/2020 17:23:35 [id number] [facility] [address] [place] [address] 08/08/2021 00:00:00 08/08/2021 14:07:37 [id number] [facility] [address] [address] 12/19/2021 00:00:00 12/19/2021 11:26:10 [id number] [facility] [address] [place] [address] 12/26/2021 00:00:00 12/26/2021 14:44:41 [id number] [facility] [address] [place] [address] 01/02/2022 00:00:00 01/02/2022 14:47:40 [id number] _ATHENA_M IGRATION_ DEFAULT_1 _1 , 01/11/2022 00:00:00 01/11/2022 13:57:45 [id number] [facility] [address] [place] [address] 01/16/2022 00:00:00 01/16/2022 10:24:13 [id number] [facility] [address] [place] [address] 01/16/2022 00:00:00 01/16/2022 14:18:18 [id number] [facility] [address] [place] [address] 02/06/2022 00:00:00 02/06/2022 19:41:42 [id number] [facility] [address] [place] [address] 02/13/2022 00:00:00 02/13/2022 11:48:45 [id number] [facility] [address] [place] [address] 03/06/2022 00:00:00 03/06/2022 11:05:23 [id number] [facility] [address] [place] [address] 03/13/2022 00:00:00 03/13/2022 11:36:28 [id number] [facility] [address] [address] 03/27/2022 00:00:00 03/27/2022 10:16:49 [id number] aZy Laird DPM [facility] [address] [place] [address] 10/08/2022 16:12:23 10/08/2022 17:09:16 Diabetic peripheral neuropathy 964175338 E11.42 Patient educated on neuropathy , diabetes, diabetic diet, and daily foot exams. Patient is to check feet daily for new wounds, blisters, redness to prevent infection and ulceration s to the feet. Patient will return to clinic in 3 months for diabetic foot workup. History of amputation of right great toe 7013929843 5532586 Z89.411 partial 1st raycontinu e diabetic custom inserts History of amputation of right lesser toe 9314218517 8407520 Z89.421 partial 2nd toeas above Dystrophia unguium 18374 009 L60.3 Nails 1 through 8 were debrided with sharp mechanical debridemen t without incident. Nails were debrided and greater than 50% length and thickness where needed. Foot callus 692268278 L8 4 Bilateral feetDebrid ed without incidentCo ntinue custom diabetic insertsFol low-up in 3 months [id number] Zay Laird DPM [facility] [place] [address] [place] [address] 01/07/2023 12:27:11 01/28/2023 11:49:46 Acquired varus heel 659992882 M21.179 Rx [place] brace Diabetic p eripheral neuropathy 428468361 E11.42 Patient educated on neuropathy , diabetes, diabetic diet, and daily foot exams. Patient is to check feet daily for new wounds, blisters, redness to prevent infection and ulceration s to the feet. Patient will return to clinic in 3 months for diabetic foot workup. Dystrophia unguium 31926 009 L60.3 Nails 1 through 8 were debrided with sharp mechanical debridemen t without incident. Nails were debrided and greater than 50% length and thickness where needed. Foot callus 291685199 L8 4 Bilateral feetDebrid ed without incidentCo ntinue custom diabetic insertsFol low-up in 3 months [id number] Renee Lynch MD [facility] [address] [place] [address] 01/18/2023 09:17:35 01/18/2023 10:02:06 Well controlled type 2 diabetes mellitus 398077182 E11.9 a1c of 5.4% down from 8.3%- continue on victoza to 1.8 mg daily as he struggled with diet. Continue on metformin ER 500 mg BID and restart glimepirid e at 1 mg dose only - hold if premeal sugars under 110 mg/dL; half if 111-150 mg/dL and take full tablet if over 150 mg/dL- he is aware to no longer take glimepirid e with dinner. Continue on jardiance 25 mg daily. Discussed carb counting and how to read food labels. Recommende d patient to utilize the diabetesfo [email or web address].com from the [employer] website to help with food preparatio n as this presents ideal carb content per meal so this will make carb counting much easier for patient. Recommende d he incorporat e natural insulin assembler finger buffs s such as pears, apples, cinnamon, cele and sweet potatoes to help mobilize his endogenous insulin. Recommende d up to 150 minutes of moderate level activity/e xercise weekly. Dyslipidemia 806042171 E 78.5 continue on atorvastat in 40 mg daily at bedtime- LDL In range. Spent up to 25 minutes preparing to see the patient (eg, review of tests), obtaining and/or reviewing separately obtained history, performing a medically appropriat e examinatio n and evaluation , counseling and educating the patient, ordering medication s, tests, along with documentin g clinical informatio n in the electronic health record, independen tly interpreti ng results and communicat ing results to the patient. Patient can be followed by PCP - she/he is aware of my resignatio n and last day of March 15. If needed his/her PCP can refer patient to another endocrinol ogist in the area. All questions /concerns answered and refills necessary at visit today. [id number] REGGIE [facility] [address] [place] [address] 04/08/2023 11:10:24 04/08/2023 12:00:01 Foot callus 928265320 L84 Bilateral feetRecomm end use of pumice stoneConti nue custom diabetic insertsFol low-up in 3 months History of amputation of right lesser toe 1050522348 9540976 Z89.421 partial 2nd toeas above Ulcer of foot 66319993 L 97.212 debrided noterecomm end Betadine wet-to-dry dressing dailyofflo ading to prevent worseningr [facility]erral to [facility], see myselffoll ow-up 1 week [id number] Zay Laird DPM [facility] [address] [place] [address] 04/17/2023 16:33:29 04/17/2023 17:26:21 Ulcer of foot 64869296 L97.212 debrided noterecomm end Betadine wet-to-dry dressing dailyofflo ading to prevent worsening follow-up 2 weeks History of amputation of right lesser toe 0468756879 8834844 Z89.421 partial 2nd toeas above [id number] Zay Laird DPM [facility] [address] [place] [address] 12/26/2023 12:47:03 12/26/2023 13:24:29 Diabetes mellitus 64356143 E11.621 continue diabetic control per PCP recommenda tions Diabetic foot ulcer 3710 12377 E13.621 left 2nd toewound care dailyofflo ading dailyfollo w-up 1 week Diabetic p eripheral neuropathy 319259549 E11.42 Patient educated on neuropathy , diabetes, diabetic diet, and daily foot exams. Patient is to check feet daily for new wounds, blisters, redness to prevent infection and ulceration s to the feet. Patient will return to clinic in 3 months for diabetic foot workup. Dystrophia unguium 45262 009 L60.3 Nails 1 through 8 were debrided with sharp mechanical debridemen t without incident. Nails were debrided and greater than 50% length and thickness where needed. Health Concerns Section Related Observation LastModified by Organization Detai ls LastModified Time None Recorded Concern Status LastModified by Organization Details LastModified Time None Recorded Advance Directives Directive None Recorded Payers Encounter Date Sequence Insurance Name Policy Number Policy Horne Covered Member ID Horne Member ID Guarantor Name 01/07/2023 1 [facility] (MEDICAID REPLACEMENT - HMO) [id number] Bob Webster [id number] Bob Webster 01/18/2023 1 [facility] (MEDICAID REPLACEMENT - HMO) [id number] Bob Webster [id number] Bob Webster 04/08/2023 1 [facility] (MEDICAID REPLACEMENT - HMO) [id number] Bob Webster [id number] Bob Webster 04/17/2023 1 [facility] (MEDICAID REPLACEMENT - HMO) [id number] Bob Webster [id number] Bob Webster 12/26/2023 1 [place] Bob Webster [id number] Bob Webster Notes Date Note Type Note Provider Name and Address Organization Details Recorded Time 01/07/2023 text/html The patient is a 57-year-old male who returns the office for follow-up on diabetic foot care. Patient states that he has difficulty walking. Patient states that he has numbness and tingling of his foot but denies any wounds. Patient has a painful callus on the plantar foot but denies any redness or drainage. Patient denies any other complaints. Zay Laird DPM [address] [facility], [place], [address], [employer] 01/24/2023 09:00:55 01/18/2023 text/html 57 yo male comes in for follow up in management of well controlled type 2 DM (A1C of 5.4% down from 8.3%) and dyslipidemia. last seen in Jan 2022 at that time we increased victoza to 1.8 mg daily as he struggled with diet. we continued metformin ER 500 mg BID and started glimepiride 2 mg BID with meals. We restarted jardiance 25 mg daily. we continued statin therapy. They recently stopped victoza due to hypoglycemia. He is dropping down to 55 mg/dL overnight and runs up to 200 mg/dl during the day. Sugars are running 120-140 mg/dL consistently during the day. labs from 01/10/23:TSH of 0.347 mIU/mlFT4 of 1.02 ng/dL106/60/39/55a 1c of 5.4%microalbumin 70 ug/mgglucose 128 mg/dLCr normalLFT normal Renee Lynch MD [address], [place], [address], [employer] 01/18/2023 09:57:01 04/08/2023 text/html . Patient is a 57-year-old male who returns the office for a callus to the plantar right foot with subungual hematoma. Patient states that he has not been using the callus pumice stone patient states that he does wear diabetic shoes and insoles which he did recently obtain. Patient denies any other pedal complaints. Zay Laird DPM [address], [place], [address], [email or web address] 04/08/2023 11:48:29 04/17/2023 text/html . Patient is a 57-year-old male diabetic who returns to Wound Care for a wound to the plantar right foot which is noninfected. Patient has a amputated partial foot which causes some increased pressure and forms calluses and when neglected become wounds. Patient does have diabetic style shoes and insoles. Patient denies any fever, chills, nausea or vomiting. Zay Laird DPM [address], [place], [address], [employer] 04/18/2023 09:27:06 12/26/2023 text/html Patient is a 58-year-old male diabetic who returns the office for diabetic foot care. Patient upon exam has a wound to the medial aspect of the left 2nd toe which he was unaware of. Patient denies any fever, chills, nausea vomiting. Patient denies any other complaints. Zay Laird DPM [address], [place], [address], [employer] 12/26/2023 13:05:40
--- OUTSIDE RECORDS SUMMARY | 2024-07-15 19:05 | XMS_ITS | Continuity of Care Document ---
Author Organization [facility] Address [address] [place] [address] Phone Care Team Providers Care Snow Blower Name Role Phone Unavailable Unavailable Unavailable Procedures Procedure Date X-ray exam lwr spine, min 4 views Supplemental Report Advance Directives Directive Yes / No Effective Date File Name No Information Encounters Encounter Description Practice Location Reason(s) For Visit Diagnoses Date Provider Providers Copied on Encounter [facility], [address], [place], [place], [id number], [place] tel:[phone] [facility] No Information 3200 6 No Information Family History Family Member Type Diagnosis Age At Onset No Information Payers Payer name Insurance type Covered libertarian ID Authoriza timichelle(s) [employer] [id number] Social History Type Description Quantity Date Captured Comments Sex Male Smoking Status No Information Chief Complaint And Reason For Visit No Information Reason For Referral Reason For Referral No Information History Of Present Illness Encounter Date Complaint History Of Prese nt Illness No Information Functional Status Date Functional Assessmen t No Information Instructions Date Instruction Additional Infor mation No Information Assessments Type Assessment Date No Information Patient Care Teams Name Effective Dates (start - stop) Status Members No Information
--- NOTE | 2024-07-15 20:53 | ED.MALEGU ---
HPI - Male Genitourinary General Chief complaint: Urogenital-Male <Zita Banks PA-C - Last Filed: 07/16/24 00:22> Stated complaint: hematuria, ulcer to toe <Zita Banks PA-C - Last Filed: 07/16/24 00:22> Time Seen by Provider: 07/15/24 20:28 <Zita Banks PA-C - Last Filed: 07/16/24 00:22> Source: patient and family <Zita Banks PA-C - Last Filed: 07/16/24 00:22> Mode of arrival: ambulatory <Zita Banks PA-C - Last Filed: 07/16/24 00:22> Limitations: no limitations <Zita Banks PA-C - Last Filed: 07/16/24 00:22> History of Present Illness HPI Narrative: This is a 58 year old male that presents to the ER for two complaints. Reports he has had hematuria since yesterday. Also reports he has had a wound on his right 3rd toe for the last 5 days. Reports the area was draining pus. Denies fevers, abdominal pain, flank pain, dysuria. <Zita Banks PA-C - Last Filed: 07/16/24 00:22> Related Data Home medications: Home Medications ?Medication ?Instructions ?Recorded ?Confirmed ?Last Taken ?Type amitriptyline 25 mg tablet 25 mg PO QHS 05/28/24 07/16/24 Unknown History aripiprazole 10 mg tablet 10 mg PO DAILY 05/28/24 07/16/24 Unknown History atorvastatin 40 mg tablet 40 mg PO DAILY 05/28/24 07/16/24 Unknown History duloxetine 30 mg capsule,delayed 30 mg PO DAILY 05/28/24 07/16/24 Unknown History release empagliflozin 25 mg tablet 25 mg PO DAILY 05/28/24 07/16/24 Unknown History (Jardiance) metoprolol tartrate 25 mg tablet 25 mg PO BID 05/28/24 07/16/24 Unknown History docusate sodium 100 mg capsule 100 mg PO DAILY 07/16/24 07/16/24 Unknown History (Colace) <Zita Banks PA-C - Last Filed: 07/16/24 00:22> Allergies/Adverse reactions: Allergies Allergy/AdvReac Type Severity Reaction Status Date / Time vancomycin AdvReac Other Verified 07/15/24 22:30 <Zita Banks PA-C - Last Filed: 07/16/24 00:22> Review of Systems Review of Systems: CONSTITUTIONAL: Denies fever GASTROINTESTINAL: Denies abdominal pain, nausea, vomiting GENITOURINARY: Reports hematuria. Denies dysuria SKIN: Reports toe wound <Zita Banks PA-C - Last Filed: 07/16/24 00:22> All systems reviewed & are unremarkable except as noted in HPI and below <Zita Banks PA-C - Last Filed: 07/16/24 00:22> [facility] Past Medical History Medical History: Medical History Dementia Amputation toe Burn erythema of left lower leg Left leg swelling Gangrene of right foot Smoking Bacteremia due to Streptococcus pneumoniae (06/2021) With septic left knee and anterior chest abscess. History of MRSA infection Polysubstance abuse Including methamphetamines and marijuana. Diabetic peripheral neuropathy Type 2 diabetes mellitus Hemoglobin A1c was 6.1% on 08/20/2021. Obesity Hypercholesterolemia Tobacco dependence Amphetamine abuse Patient is vague as to how often he uses. <Zita Banks PA-C - Last Filed: 07/16/24 00:22> Surgical History Surgical History: Surgical History History of incision and drainage (10/04/20) -Complex incision and drainage of right diabetic foot ulcer per Dr. Zhao on 10/04/2020. -Incision and drainage of complicated sternal abscess on 06/26/[address] Ramirez. -Incision and drainage of left knee joint and debridement of right foot 1st ray wound on 06/28/[address] Alvarez. - Extensive incision and drainage of an anterior chest abscess at [facility]. History of carpal tunnel release (~09/07/20) Left-sided per Dr. Escobedo. History of colonoscopy (~10/2008) Negative aside from internal hemorrhoidal tissue per Dr. Damico. Status post debridement (~12/21/19) Excisional debridement of skin, subcutaneous tissue, and muscle of a 4 cm2 ulcer of the plantar surface of the right foot with removal foreign body under fluoroscopy per Dr. Raymundo. <Zita Banks PA-C - Last Filed: 07/16/24 00:22> Family History Family History: Family History Father Hypertension Cerebrovascular accident Other Carcinoma of colon Diabetes mellitus <Zita Banks PA-C - Last Filed: 07/16/24 00:22> Social History Social History: Social History Social History: Surrogate decision maker: Maxwell Webster, spouse. Code status: Full code. Smoking packs per day: 1 Smoking cigarettes per day: 20.0 Years smoked: 20 Smoking pack-years: 20.00 Smoking status: Former smoker Tobacco type: cigarettes Second hand tobacco smoke exposure: No Alcohol intake: former Drinks per week: 5 Alcohol use details: Drinks several alcoholic beverages a month. Substance use: former Substance use type: marijuana and methamphetamine Other substance usage details: Previous history of methamphetamine use. Last use: 2020 Living arrangements: with family Additional living arrangements comments: Lives in [place] with his spouse. Occupation/Education: unemployed Additional occupation/education comments: Unemployed. Spiritual care concerns: No <Zita Banks PA-C - Last Filed: 07/16/24 00:22> Exam Narrative: GENERAL: Well-appearing, well-nourished, and in no acute distress. HEAD: Normocephalic, atraumatic. EYES: EOMI. CHEST: Clear to auscultation. No respiratory distress. No wheezes rales or rhonchi HEART: Regular rate and rhythm. No murmur heard. Normal peripheral pulses. ABDOMEN: Soft, nontender, nondistended, normal active bowel sounds. EXTREMITIES: Normal range of motion. No edema. Amputation of the right 1st and 2nd toes. 3rd toe with a wound to the distal phalanx, mild surrounding redness SKIN: Warm, dry, no rash. NEURO: No focal deficits. Alert and oriented x3. PSYCH: Normal mood and affect <Zita Banks PA-C - Last Filed: 07/16/24 00:22> Course Course Emergency Course: patient and family updated on workup and need for admission <Zita Banks PA-C - Last Filed: 07/16/24 00:22> VP DIRECTOR OF FINANCE/PA Physician Supervision Patient's HPI, Exam, and MDM were reviewed and I agreed with the workup and disposition done in the emergency department by the MLP. I was available for consultation, but was not directly involved with patient's care nor did I evaluate the patient. <Bunny Byrne MD - Last Filed: 07/16/24 06:58> Consultations Consultation #1: spoke with hospitalist who accepts admission <Zita Banks PA-C - Last Filed: 07/16/24 00:22> Date: 07/15/24 <Zita Banks PA-C - Last Filed: 07/16/24 00:22> Consultation #2: Spoke with general surgery who will consult <Zita Banks PA-C - Last Filed: 07/16/24 00:22> Date: 07/15/24 <Zita Banks PA-C - Last Filed: 07/16/24 00:22> Vital Signs Vital signs: Vital Signs Temperature 36.4 C 07/15/24 19:05 Pulse Rate 64 07/15/24 19:05 Respiratory Rate 20 07/15/24 19:05 Blood Pressure 104/90 07/15/24 19:05 Pulse Oximetry 98 07/15/24 19:05 Oxygen Delivery Room Air 07/15/24 19:05 Temperature 36.4 C 07/16/24 05:25 Pulse Rate 53 L 07/16/24 05:25 Respiratory Rate 16 07/16/24 05:25 Blood Pressure 123/74 07/16/24 05:25 Pulse Oximetry 98 07/16/24 05:25 Oxygen Delivery Room Air 07/15/24 19:05 <Zita Banks PA-C - Last Filed: 07/16/24 00:22> Vital Signs Temperature 36.4 C 07/15/24 19:05 Pulse Rate 64 07/15/24 19:05 Respiratory Rate 20 07/15/24 19:05 Blood Pressure 104/90 07/15/24 19:05 Pulse Oximetry 98 07/15/24 19:05 Oxygen Delivery Room Air 07/15/24 19:05 Temperature 36.4 C 07/16/24 05:25 Pulse Rate 53 L 07/16/24 05:25 Respiratory Rate 16 07/16/24 05:25 Blood Pressure 123/74 07/16/24 05:25 Pulse Oximetry 98 07/16/24 05:25 Oxygen Delivery Room Air 07/15/24 19:05 <Bunny Byrne MD - Last Filed: 07/16/24 06:58> MDM - Male Genitourinary MDM Narrative Medical decision making narrative: Patient presents to the emergency department with 2 complaints. Reporting hematuria since yesterday. Also reporting a diabetic toe infection. He is afebrile and nontoxic appearing. His vitals are stable. Cbc without leukocytosis. Metabolic panel with normal kidney function. Urine with red blood cells, no evidence of infection. CT abdomen and pelvis shows a nonobstructing kidney stone. Also a mass of the left kidney. Right foot x-ray shows findings of osteomyelitis. Blood cultures drawn, patient started on antibiotics. patient and family updated on workup and need for admission. spoke with hospitalist who accepts admission. Spoke with general surgery who will consult <Zita Banks PA-C - Last Filed: 07/16/24 00:22> Differential Diagnosis Differential diagnosis: Likely urinary tract infection and other (kidney mass, kidney stone, osteomyelitis, diabetic foot infection) <Zita Banks PA-C - Last Filed: 07/16/24 00:22> Lab Data Attestation: I reviewed the patient's lab results. <Zita Banks PA-C - Last Filed: 07/16/24 00:22> Result diagrams: 07/16/24 06:06 07/16/24 06:06 <SASHA Pace Last Filed: 07/16/24 00:22> Labs: Lab Results 07/15/24 07/15/24 Range/Units 20:44 21:08 WBC 6.6 (4.5-10.0) K/mm3 RBC 4.88 (4.6-6.20) M/mm3 Hgb 15.0 D (14.0-18.0) g/dL Hct 44.9 (42.0-52.0) % MCV 92.0 (80-100) fl MCH 30.7 (26-34) pg MCHC 33.4 (32-36) g/dl RDW 12.5 (11.5-14.5) % Plt Count 153 (150-375) k/mm3 MPV 8.9 (7.4-10.4) fl Immature Gran % (Auto) 0.2 (0-0.5) % Neut % (Auto) 60.5 (45.5-73.1) % Lymph % (Auto) 30.3 (18.3-44.2) % [place] % (Auto) 6.8 (2.6-8.5) % Eos % (Auto) 1.7 (0-4.4) % Baso % (Auto) 0.5 (0.2-1.2) % Lymph # (Auto) 1.99 (0.9-3.2) K/mm3 [place] # (Auto) 0.5 (0.1-0.6) K/mm3 Eos # (Auto) 0.1 (0-0.3) K/mm3 Baso # (Auto) 0.0 (0.0-0.1) K/mm3 Abs Immat Gran (auto) 0.01 (0.00-0.031) K/mm3 Absolute Neuts (auto) 4.0 (1.3-6.7) K/mm3 Absolute Nucleated RBC 0.000 (0.0-0.012) K/mm3 Nucleated RBC % 0.0 (0.0-0.2) % ESR 12 (0-20) mm/hr Sodium 138 (137-145) mmol/L Potassium 4.2 (3.4-5.0) mmol/L Chloride 100 (98-107) mmol/L Carbon Dioxide 31 H (22-30) mmol/L Anion Gap 7 (4-12) mmol/L BUN 17 (9-20) mg/dL Creatinine 0.67 L (0.7-1.3) mg/dL Estim Creat Clear Calc 123 ml/min Estimated GFR > 60 (59 - ) Glucose 128 H (65-110) mg/dL Calcium 9.4 (8.4-10.2) mg/dL Total Bilirubin 0.5 (0.2-1.3) mg/dL AST 30 (17-59) U/L ALT 30 (6-50) U/L Alkaline Phosphatase 102 (38-126) U/L C-Reactive Protein < 0.5 (<1.0) mg/dL Total Protein 7.0 (6.3-8.2) g/dL Albumin 3.9 (3.5-5.1) g/dL Urine Color Yellow (Yellow) Urine Appearance Clear (Clear) Urine pH 6.0 (5.0-9.0) Ur Specific [place] 1.027 (1.001-1.035) Urine Protein Trace (Negative) mg/dL Urine Glucose (UA) 3+ H (Negative) mg/dL Urine Ketones Negative (Negative) mg/dL Ur Blood (Man) 2+ H (Negative) Urine Nitrate Negative (Negative) Urine Bilirubin Negative (Negative) Urine Urobilinogen 1.0 (<2.0) mg/dL Leukocyte Esterase Rfl Negative (Negative) DEACON/UL Urine RBC 21-50 H (0-2) /hpf Urine WBC 0-5 (0-3) /hpf Ur Squamous Epith Cells None seen (Few) /hpf Urine Bacteria None seen /hpf Urine Casts 0-2 <Zita Banks PA-C - Last Filed: 07/16/24 00:22> Lab Results 07/15/24 07/15/24 Range/Units 20:44 21:08 WBC 6.6 (4.5-10.0) K/mm3 RBC 4.88 (4.6-6.20) M/mm3 Hgb 15.0 D (14.0-18.0) g/dL Hct 44.9 (42.0-52.0) % MCV 92.0 (80-100) fl MCH 30.7 (26-34) pg MCHC 33.4 (32-36) g/dl RDW 12.5 (11.5-14.5) % Plt Count 153 (150-375) k/mm3 MPV 8.9 (7.4-10.4) fl Immature Gran % (Auto) 0.2 (0-0.5) % Neut % (Auto) 60.5 (45.5-73.1) % Lymph % (Auto) 30.3 (18.3-44.2) % [place] % (Auto) 6.8 (2.6-8.5) % Eos % (Auto) 1.7 (0-4.4) % Baso % (Auto) 0.5 (0.2-1.2) % Lymph # (Auto) 1.99 (0.9-3.2) K/mm3 [place] # (Auto) 0.5 (0.1-0.6) K/mm3 Eos # (Auto) 0.1 (0-0.3) K/mm3 Baso # (Auto) 0.0 (0.0-0.1) K/mm3 Abs Immat Gran (auto) 0.01 (0.00-0.031) K/mm3 Absolute Neuts (auto) 4.0 (1.3-6.7) K/mm3 Absolute Nucleated RBC 0.000 (0.0-0.012) K/mm3 Nucleated RBC % 0.0 (0.0-0.2) % ESR 12 (0-20) mm/hr Sodium 138 (137-145) mmol/L Potassium 4.2 (3.4-5.0) mmol/L Chloride 100 (98-107) mmol/L Carbon Dioxide 31 H (22-30) mmol/L Anion Gap 7 (4-12) mmol/L BUN 17 (9-20) mg/dL Creatinine 0.67 L (0.7-1.3) mg/dL Estim Creat Clear Calc 123 ml/min Estimated GFR > 60 (59 - ) Glucose 128 H (65-110) mg/dL Calcium 9.4 (8.4-10.2) mg/dL Total Bilirubin 0.5 (0.2-1.3) mg/dL AST 30 (17-59) U/L ALT 30 (6-50) U/L Alkaline Phosphatase 102 (38-126) U/L C-Reactive Protein < 0.5 (<1.0) mg/dL Total Protein 7.0 (6.3-8.2) g/dL Albumin 3.9 (3.5-5.1) g/dL Urine Color Yellow (Yellow) Urine Appearance Clear (Clear) Urine pH 6.0 (5.0-9.0) Ur Specific [place] 1.027 (1.001-1.035) Urine Protein Trace (Negative) mg/dL Urine Glucose (UA) 3+ H (Negative) mg/dL Urine Ketones Negative (Negative) mg/dL Ur Blood (Man) 2+ H (Negative) Urine Nitrate Negative (Negative) Urine Bilirubin Negative (Negative) Urine Urobilinogen 1.0 (<2.0) mg/dL Leukocyte Esterase Rfl Negative (Negative) DEACON/UL Urine RBC 21-50 H (0-2) /hpf Urine WBC 0-5 (0-3) /hpf Ur Squamous Epith Cells None seen (Few) /hpf Urine Bacteria None seen /hpf Urine Casts 0-2 <Bunny Byrne MD - Last Filed: 07/16/24 06:58> Imaging Data Radiologist's impression: ITS Impressions Foot X-Ray 07/15/24 21:42 IMPRESSION: Findings within the distal phalanx of the third toe for which osteomyelitis is suspected. Abdomen/Pelvis CT 07/15/24 23:03 IMPRESSION: Nonobstructing 2.5 mm calculus within the right kidney. Exophytic focus of soft tissue attenuation within the left kidney, as detailed above. Nonemergent focused ultrasound examination may be performed for further characterization. Cholelithiasis without cholecystitis. <Zita Banks PA-C - Last Filed: 07/16/24 00:22> Critical Care Time Critical Care Time Critical Care Time: No <Zita Banks PA-C - Last Filed: 07/16/24 00:22> Discharge Plan Discharge Clinical Impression: Left renal mass Osteomyelitis Qualifiers: Osteomyelitis type: unspecified type Osteomyelitis location: foot Laterality: right Qualified Code(s): M86.9 - Osteomyelitis, unspecified Hematuria Qualifiers: Hematuria type: gross Qualified Code(s): R31.0 - Gross hematuria <Zita Banks PA-C - Last Filed: 07/16/24 00:22> Patient Disposition: Still a Patient <Zita Banks PA-C - Last Filed: 07/16/24 00:22> Condition: Stable <Zita Banks PA-C - Last Filed: 07/16/24 00:22>
[2024-07-15 20:54] LABS: Add Urine Microscopic? YES; Appearance Urine Clear (Clear); Bacteria Urine None Seen /hpf; Bilirubin Urine Negative (Negative); Blood Urine 2+ (Negative); Color Urine Yellow (Yellow); Glucose Urine UA 3+ mg/dL (Negative); Ketones Urine Negative (Negative); Leukocyte Esterase Ur Negative LEU/UL (Negative); Nitrate Urine Negative (Negative); Non Pathogenic Casts 0-2; Protein Urine Trace mg/dL (Negative); RBC Urine 21-50 /hpf (0-2); Specific Grav Ur 1.027 (1.001-1.035); Squamous Epithelial Cell Urine None Seen /hpf (Few); WBC Urine 0-5 /hpf (0-3)
--- OUTSIDE RECORDS SUMMARY | 2024-07-15 20:54 | XMS_ITS | Clinical Summary ---
Author Organization [facility] Address [address] [place] [address] Care Team Providers Care Lens Cleaner Name Role Phone Miguelito Albrecht MD Primary Care Provider HusRyley garcia MD Unavailable [phone] Allergies No known active allergies Medications glipiZIDE [...] age to complete this topic Care Teams Lens Cleaner Relationship Specialty Start Date End Date Miguelito Albrecht MD [address] [place] [address] PCP - General INTERNAL MEDICINE 12/18/18 Ryley Narvaez MD [address] [place] [address] EP Portable Trackman CARDIOVASCULAR DISEASE 12/29/18
--- OUTSIDE RECORDS SUMMARY | 2024-07-15 20:54 | XMS_ITS | Encounter Summary ---
Author Organization [facility] Address [address] [place] [address] Care Team Providers Care Sock Liner Name Role Phone Miguelito Albrecht MD Primary Care Provider Rlyey Naravez MD Unavailable [phone] Encounter Details Date Type Department Care Team (Late st Contact Info) Description 12/22/2018 Abstract [facility] at [address] [phone] Sheela Mtz MA Social History Tobacco Use [...] on filedocumented in this encounter Care Teams Sock Liner Relationship Specialty Start Date End Date Miguelito Albrecht MD [address] [place] [address] PCP - General INTERNAL MEDICINE 12/18/18 Ryley Narvaez MD [id number] [place] [address] EP Manufacturing Management Associate CARDIOVASCULAR DISEASE 12/29/18 documented as of this encounter
--- OUTSIDE RECORDS SUMMARY | 2024-07-15 20:54 | XMS_ITS | Patient Health Summary ---
Author Organization [facility] Address [address] [place] [address] Care Team Providers Care Patient Insurance Clerk Name Role Phone Miguelito Albrecht MD Primary Care Provider Note from [facility],non-owned Affiliates and Associated Physician Practices is amultiple site organization consisting of ambulatory clinics and hospital sitesin [place], [place], [place] and [place]. This disclosure is being madepursuant to the Care Everywhere program and may not contain all information available regarding this patient. Last updated 18.[facility] Allergies No known active allergies [...] Comments Blood Pressure 148/81 07/01/2019 12:26 PM WATER SYSTEMS DESIGNER Pulse 80 07/01/2019 12:26 PM WATER SYSTEMS DESIGNER Temperature 36.2 C (97.1 F) 07/01/2019 12:26 PM WATER SYSTEMS DESIGNER Respiratory Rate 16 04/29/2019 4:12 AM WATER SYSTEMS DESIGNER Oxygen Saturation 98% 07/01/2019 12:26 PM WATER SYSTEMS DESIGNER Inhaled Oxygen Concentration 40% 04/27/2019 1 :45 PM WATER SYSTEMS DESIGNER Weight 115.2 kg (254 lb) 07/01/2019 12:26 PM WATER SYSTEMS DESIGNER Height 188 cm (6' 2 ) 07/01/2019 12:26 PM WATER SYSTEMS DESIGNER Body Mass Index 32.61 07/01/2019 12:26 PM WATER SYSTEMS DESIGNER Procedures * CARDIAC EKG ORDER(Performed 05/14/2019) * [...] * CARDIAC EKG ORDER (05/14/2019 10:01 AM WATER SYSTEMS DESIGNER) Only the most recent of2 resultswithin the time period is included. Narrative 05/14/2019 10:01 AM WATER SYSTEMS DESIGNER Ordered by an unspecified provider. Scanned Document CARDIAC SERVICES ORD ERABLES * (ABNORMAL) GLUCOSE - POINT OF CARE (04/29/2019 8:02 AM WATER SYSTEMS DESIGNER) Only the most recent of80 resultswithin the time period is included. Glucose WB/POC 130(H) 70 - 115 mg/dL 04/29/2019 8:05 AM WATER SYSTEMS DESIGNER [facility] Specimen Type Arterial/C apillary 04/29/2019 8:05 AM [facility] Comment:CHIEF RADIOLOGY: Coty raymundo Blood BLOOD SPECIMEN / Unknown 04/29/2019 8:02 AM WATER SYSTEMS DESIGNER 04/29/2019 8:05 AM WATER SYSTEMS DESIGNER Hiwot William MD LAB - POINT OF CARE ORDERABLES [facility] [address] [place] [address] * (ABNORMAL) CBC W/O DIFFERENTIAL (04/29/2019 5:22 AM WATER SYSTEMS DESIGNER) Only the most recent of8 resultswithin the time period is included. WBC 7.5 3.5 - 10.5 10 3/uL 04/29/2019 5:29 AM [facility] RBC 4.07(L) 4.30 - 5.70 10 6/uL 04/29/2019 5:29 AM [facility] Hemoglobin 12.4(L) 13.5 - 17.5 g/dL 04/29/2019 5:29 AM [facility] Hematocrit 37.4(L) 39.0 - 50.0 % 04/29/2019 5:29 AM [facility] MCV 91.9 81.0 - 97.0 fL 04/29/2019 5:29 AM [facility] MCH 30.5 28.0 - 34.0 pg 04/29/2019 5:29 AM [facility] MCHC 33.2 32.0 - 36.0 g/dL 04/29/2019 5:29 AM [facility] Platelet Count 208 150 - 400 10 3/uL 04/29/2019 5:29 AM [facility] RDW-SD 43.8 36.0 - 50.0 fL 04/29/2019 5:29 AM [facility] RDW-CV 13.1 11.2 - 14.8 % 04/29/2019 5:29 AM [facility] MPV 8.6(L) 9.3 - 12.8 fL 04/29/2019 5:29 AM [facility] nRBC Absolute 0.00 0 10 3/uL 04/29/2019 5:29 AM [facility] nRBC Auto 0.0 0 /100 WBC 04/29/2019 5:29 AM [facility] Blood BLOOD SPECIMEN / Unknown Venipuncture / Unknown 04/29/2019 5:22 AM WATER SYSTEMS DESIGNER 04/29/2019 5:27 AM WATER SYSTEMS DESIGNER Diana Elys Ayla PURCELL LAB - HEMATOLOG Y ORDERABLES [facility] [address] [place] [address] * (ABNORMAL) BASIC METABOLIC PANEL (CALCIUM TOTAL) (04/29/2019 5:22 AM WATER SYSTEMS DESIGNER) Only the most recent of13 resultswithin the time period is included. BUN 21 7 - 26 mg/dL 04/29/2019 5:55 AM [facility] Creatinine 0.9 0.6 - 1.2 mg/dL 04/29/2019 5:55 AM [facility] Sodium 140 136 - 145 mmol/L 04/29/2019 5:55 AM [facility] Potassium 4.1 3.5 - 4.5 mmol/L 04/29/2019 5:55 AM [facility] Chloride 103 98 - 107 mmol/L 04/29/2019 5:55 AM [facility] CO2 29 22 - 29 mmol/L 04/29/2019 5:55 AM [facility] Glucose 151(H) 70 - 115 mg/dL 04/29/2019 5:55 AM [facility] Calcium 9.6 8.4 - 10.2 mg/dL 04/29/2019 5:55 AM [facility] Anion Gap 12 8 - 18 04/29/2019 5:55 AM [facility] BUN/Creatinine Ratio 23 7 - 23 04/29/2019 5:55 AM [facility] Osmolality Calculated 296 270 - 300 mOsm/kg 04/29/2019 5:55 AM [facility] eGFR >60 >60 mL/min/1.7 3 m2 04/29/2019 5:55 AM [facility] Blood BLOOD SPECIMEN / Unknown Venipuncture / Unknown 04/29/2019 5:22 AM WATER SYSTEMS DESIGNER 04/29/2019 5:27 AM WATER SYSTEMS DESIGNER Diana Aguila DO LAB - CHEMISTRY ORDERABLES Performing Organization Address City/[facility]/[place] [address], [facility] [phone] * PHOSPHORUS BLOOD (04/29/2019 5:22 AM WATER SYSTEMS DESIGNER) Only the most recent of2 resultswithin the time period is included. Phosphorus 3.4 2.3 - 4.7 mg/dL 04/29/2019 5:55 AM WATER SYSTEMS DESIGNER [facility] Blood BLOOD SPECIMEN / Unknown Venipuncture / Unknown 04/29/2019 5:22 AM WATER SYSTEMS DESIGNER 04/29/2019 5:27 AM WATER SYSTEMS DESIGNER Diana Aguila DO LAB - CHEMISTRY ORDERABLES Performing Organization Address [facility] Co de Phone Number [address] [phone] * MAGNESIUM BLOOD (04/29/2019 5:22 AM WATER SYSTEMS DESIGNER) Only the most recent of3 resultswithin the time period is included. Magnesium 1.6 1.6 - 2.6 mg/dL 04/29/2019 5:55 AM WATER SYSTEMS DESIGNER [facility] Blood BLOOD SPECIMEN / Unknown Venipuncture / Unknown 04/29/2019 5:22 AM WATER SYSTEMS DESIGNER 04/29/2019 5:27 AM WATER SYSTEMS DESIGNER Diana Patelalisonwyatt DO LAB - CHEMISTRY ORDERABLES Performing Organization Address City/[facility] [place] [address], [facility] [phone] * Peripheral Nerve Block (04/27/2019 3:11 PM WATER SYSTEMS DESIGNER) Narrative Lorenzo Galvan MD - 04/27/2019 3:11 PM WATER SYSTEMS DESIGNER Lorenzo Galvan MD 04/27/2019 3:13 PM Peripheral [...] (ABNORMAL) CULTURE WOUND+GRAM STAIN (04/27/2019 12:34 PM WATER SYSTEMS DESIGNER) Only the most recent of2 resultswithin the time period is included. Culture Light Enterobacter cloacae complex(A) ZIA 04/29/2019 10:32 AM [facility] MICROBIOLOG[facility] Culture Rare Staphylococcus aureus methicillin-resi stant (MRSA)(A) ZIA 04/29/2019 10:32 AM [facility]CRO[facility]OLOG[facility] Comment:Staphylococcus aureu s methicillin-resistant (MRSA) detected by penicillin binding protein immunoassay. Contact precautions required. Conventional antibiotic susceptibility testing to follow. Culture Rare normal skin ryan ZIA 04/29/2019 10:32 AM [facility] MICROBIOLOGY Gram Stain No organisms seen 04/29/2019 10:32 AM [facility] MICROBIOLOGY Microbiology ENTIRE FOOT / Unknown Collection / Unknown 04/27/2019 12:34 PM WATER SYSTEMS DESIGNER 04/27/2019 1:44 PM WATER SYSTEMS DESIGNER [facility] MICROBIOLOGY - 04/29/2019 10:32 AM [facility] Methicillin-resistant Staphylococci (MRSA) are resistant to all [...] William MD LAB - MICROBIOLOGY ORDERABLES [facility]CROBIOLOGY [address] [place] [address], [facility] [phone] * CULTURE ANAEROBE (04/27/2019 12:34 PM WATER SYSTEMS DESIGNER) Culture No anaerobic organisms isolated ZIA 05/04/2019 12:44 PM WATER SYSTEMS DESIGNER [facility] MICROBIOLOGY Microbiology ENTIRE FOOT / Unknown Collection / Unknown 04/27/2019 12:34 PM WATER SYSTEMS DESIGNER 04/27/2019 1:44 PM WATER SYSTEMS DESIGNER Hiwot William MD LAB - MICROBIOLOGY ORDERABLES Performing Organization Address City/[facility]/ZIP Co de Phone Number [facility] MICROBIOLOGY [address] [place] [address], [facility] [phone] * (ABNORMAL) CBC WITH DIFFERENTIAL (04/24/2019 12:39 PM WATER SYSTEMS DESIGNER) Only the most recent of15 resultswithin the time period is included. WBC 7.4 3.5 - 10.5 10 3/uL 04/24/2019 12:57 PM [facility] RBC 4.25(L) 4.30 - 5.70 10 6/uL 04/24/2019 12:57 PM [facility] Hemoglobin 13.0(L) 13.5 - 17.5 g/dL 04/24/2019 12:57 PM [facility] Hematocrit 39.0 39.0 - 50.0 % 04/24/2019 12:57 PM [facility] MCV 91.8 81.0 - 97.0 fL 04/24/2019 12:57 PM [facility] MCH 30.6 28.0 - 34.0 pg 04/24/2019 12:57 PM [facility] MCHC 33.3 32.0 - 36.0 g/dL 04/24/2019 12:57 PM [facility] Platelet Count 214 150 - 400 10 3/uL 04/24/2019 12:57 PM [facility] RDW-SD 43.5 36.0 - 50.0 fL 04/24/2019 12:57 PM [facility] RDW-CV 13.1 11.2 - 14.8 % 04/24/2019 12:57 PM [facility] MPV 9.0(L) 9.3 - 12.8 fL 04/24/2019 12:57 PM [facility] nRBC Absolute 0.00 0 10 3/uL 04/24/2019 12:57 PM [facility] nRBC Auto 0.0 0 /100 WBC 04/24/2019 12:57 PM [facility] Neutrophils % 70.4(H) 35.0 - 70.0 % 04/24/2019 12:57 PM [facility] Lymphocytes % 19.4(L) 19.7 - 55.1 % 04/24/2019 12:57 PM [facility] Monocytes % 6.9 3.0 - 15.0 % 04/24/2019 12:57 PM [facility] Eosinophils % 2.2 0.0 - 6.0 % 04/24/2019 12:57 PM [facility] Basophil % 0.7 0.0 - 1.5 % 04/24/2019 12:57 PM [facility] Neutrophils Absolute 5.3 1.6 - 7.0 10 3/uL 04/24/2019 12:57 PM [facility] Lymphocyte Absolute 1.4 0.8 - 2.9 10 3/uL 04/24/2019 12:57 PM [facility] Monocytes Absolute 0.51 0.14 - 0.66 10 3/uL 04/24/2019 12:57 PM [facility] Eosinophils Absolute 0.16 0.00 - 0.45 10 3/uL 04/24/2019 12:57 PM [facility] Basophils Absolute 0.05 0.00 - 0.06 10 3/uL 04/24/2019 12:57 PM [facility] Immature Granulocytes % 0.4 0.0 - 1.0 % 04/24/2019 12:57 PM [facility] Blood BLOOD SPECIMEN / Unknown Lab Venipuncture / Unknown 04/24/2019 12:39 PM WATER SYSTEMS DESIGNER 04/24/2019 12:52 PM WATER SYSTEMS DESIGNER Hiwot William MD LAB - HEMATOLOGY OR DERABLES Performing Organization Address [facility]/ZIP Co de Phone Number [address] [phone] * (ABNORMAL) VANCOMYCIN LEVEL TROUGH (04/24/2019 12:39 PM WATER SYSTEMS DESIGNER) Only the most recent of6 resultswithin the time period is included. Pathologist [facility] Vancomycin Trough <3.0(L) 10.0 - 20.0 mcg/mL 04/24/2019 1:19 PM WATER SYSTEMS DESIGNER [facility] Blood BLOOD SPECIMEN / Unknown Lab Venipuncture / Unknown 04/24/2019 12:39 PM WATER SYSTEMS DESIGNER 04/24/2019 12:52 PM WATER SYSTEMS DESIGNER Hiwot William MD LAB - CHEMISTRY ORD ERABLES Performing Organization Address [facility] Co de Phone Number [address] [phone] * (ABNORMAL) RENAL FUNCTION PANEL (02/25/2019 12:14 PM CDT) Only the most recent of7 resultswithin the time period is included. BUN 70(H) 7 - 26 mg/dL 02/25/2019 1:39 PM [facility] Creatinine 4.6(H) 0.6 - 1.2 mg/dL 02/25/2019 1:39 PM [facility] Sodium 141 136 - 145 mmol/L 02/25/2019 1:39 PM [facility] Potassium 4.1 3.5 - 4.5 mmol/L 02/25/2019 1:39 PM [facility] Chloride 101 98 - 107 mmol/L 02/25/2019 1:39 PM [facility] CO2 26 22 - 29 mmol/L 02/25/2019 1:39 PM [facility] Glucose 151(H) 70 - 115 mg/dL 02/25/2019 1:39 PM [facility] Albumin 4.3 3.4 - 5.0 g/dL 02/25/2019 1:39 PM [facility] Calcium 10.2 8.4 - 10.2 mg/dL 02/25/2019 1:39 PM [facility] Phosphorus 5.4(H) 2.3 - 4.7 mg/dL 02/25/2019 1:39 PM [facility] Anion Gap 18 8 - 18 02/25/2019 1:39 PM [facility] BUN/Creatinine Ratio 15 7 - 23 02/25/2019 1:39 PM [facility] Osmolality Calculated 315(H) 270 - 300 mOsm/kg 02/25/2019 1:39 PM [facility] eGFR 14(L) >60 mL/min/1.7 3 m2 02/25/2019 1:39 PM [facility] Blood BLOOD SPECIMEN / Unknown Lab Venipuncture / Unknown 02/25/2019 12:14 PM CDT 02/25/2019 12:58 PM T Dianelys Lisa MD LAB - CHEMISTRY JOVANNI SEARS [facility] Organization Address City/State/ZIP Co de Phone Number [address] [phone] * URINALYSIS W/MICROSCOPIC NO CULTURE (02/17/2019 7:00 PM CDT) Only the most recent of2 resultswithin the time period is included. Color UA Straw Straw, Yellow, Colorless 02/17/2019 7:19 PM [facility] Clarity UA Clear Clear, Slt Cloudy 02/17/2019 7:19 PM [facility] Specific [place] UA 1.009 1.005 - 1.030 02/17/2019 7:19 PM [facility] pH UA 6.0 5.0 - 8.0 pH 02/17/2019 7:19 PM [facility] Protein UA Negative Negative mg/dL 02/17/2019 7:19 PM [facility] Glucose UA Negative Negative mg/dL 02/17/2019 7:19 PM [facility] Ketone UA Negative Negative mg/dL 02/17/2019 7:19 PM [facility] Bilirubin UA Negative Negative mg/dL 02/17/2019 7:19 PM [facility] Blood UA Negative Negative 02/17/2019 7:19 PM CDT [facility] Nitrite UA Negative Negative 02/17/2019 7:19 PM T [facility] Leukocyte Esterase Negative Negative 02/17/2019 7:19 PM T [facility] Urobilinogen UA Negative Negative mg/dL 02/17/2019 7:19 PM T [facility] RBC UA 3-5 None Seen, 0-2, 3-5 /HPF 02/17/2019 7:19 PM T [facility] WBC UA 0-5 None Seen, 0-5 /HPF 02/17/2019 7:19 PM T [facility] Squamous Epithelial Cells UA 0-2 None Seen, 0-2 /HPF 02/17/2019 7:19 PM [facility] Transitional Epithelial Cells UA 0-2 None Seen, 0-2 /HPF 02/17/2019 7:19 PM T [facility] Urine URINE SPECIMEN OBTAINED BY CLEAN CATCH PROCEDURE / Unknown Collection / Unknown 02/17/2019 7:00 PM CDT 02/17/2019 7:05 PM CDT Narrative [facility] - 02/17/2019 7:19 PM CDT Americo Urrutia MD LAB - URINALYSIS ORD ERABLES [address] [phone] * (ABNORMAL) VANCOMYCIN LEVEL RANDOM (02/17/2019 6:13 AM CDT) Only the most recent of4 resultswithin the time period is included. Vancomycin Random 49.3(HH) Therapeutic Ranges not established for random specimens mcg/mL 02/17/2019 8:26 AM CDT [facility] Blood BLOOD SPECIMEN / Unknown Lab Venipuncture / Unknown 02/17/2019 6:13 AM CDT 02/17/2019 7:16 AM CDT Americo Urrutia MD LAB - CHEMISTRY ORDE RABLES [address] [phone] * EKG 12-LEAD (02/15/2019 10:35 AM CDT) Ventricular Rate 53 BPM [facility] M[facility] Atrial Rate 53 BPM [facility] P-R Interval 182 ms [facility] QRS Duration ms 84 ms [facility] Q-T Interval ms 358 ms [facility] QTC Calculation (Bezet) 335 ms [facility] Calculated P [place] 44 degrees [facility] Calculated R [place] 28 degrees [facility] M[facility] Calculated T [place] 43 degrees [facility] M[facility] Interpretation EKG SINUS BRADYCARDIA OTHERWISE NORMAL ECG NO PREVIOUS ECGS AVAILABLE Confirmed by Eric Martínez ([id number]), web editor Juice Arnold ([id number]) on 03/28/2019 9:09:31 PM [facility] 02/15/2019 10:3 5 AM CDT 03/28/2019 9:09 PM CDT Americo Urrutia MD ECG ORDERABLES Performing Organization Address City/[facility]/ZIP Co de Phone Number [facility] * SODIUM URINE RANDOM (02/13/2019 12:39 AM CDT) Only the most recent of2 resultswithin the time period is included. Sodium Urine 95 Not Established mmol/L 02/13/2019 1:00 AM CDT [facility] Urine URINE SPECIMEN OBTAINED BY CLEAN CATCH PROCEDURE / Unknown Collection / Unknown 02/13/2019 12:39 AM CDT 02/13/2019 12:39 AM CDT Bob Daly MD LAB - URINE CHEMISTR Y ORDERABLES [address] [phone] * UREA NITROGEN URINE RANDOM (02/13/2019 12:39 AM CDT) Urea Nitrogen Random Urine 333 Not Established mg/dL 02/13/2019 12:59 AM CDT [facility] Urine URINE SPECIMEN OBTAINED BY CLEAN CATCH PROCEDURE / Unknown Collection / Unknown 02/13/2019 12:39 AM CDT 02/13/2019 12:39 AM CDT Zita Burciaga MD LAB - URINE CHEMISTR Y ORDERABLES [address] [phone] * CREATININE URINE RANDOM (02/13/2019 12:39 AM CDT) Only the most recent of2 resultswithin the time period is included. Creatinine Urine 70 Not Established mg/dL 02/13/2019 1:09 AM CDT [facility] Comment: Result obtained by dilution. Urine URINE SPECIMEN OBTAINED BY CLEAN CATCH PROCEDURE / Unknown Collection / Unknown 02/13/2019 12:39 AM CDT 02/13/2019 12:39 AM CDT Bob Daly MD LAB - URINE CHEMISTR Y ORDERABLES Performing Organization Address [facility] Co de Phone Number [address] [phone] * US RETROPERITONEAL COMPLETE (02/12/2019 5:45 PM CDT) Anatomical Region Laterality Modality Abdomen Ultrasound 02/12/2019 5:37 PM CDT Impressions 02/13/2019 9:27 AM CDT IMPRESSION: 1.Normal renal size. No evidence of nephrolithiasis, hydronephrosis, or solid renal mass. 2.Incidental finding of cholelithiasis without evidence of cholecystitis. Report dictated by Alcon Ansari DO (residential leasing agent). I, Dr. CHIRAG VANG M.D. have personally [...] ofcholecystitis. Report dictated by Alcon Ansari DO (residential leasing agent). I, Dr. CHIRAG VANG M.D. have personally reviewed and interpreted this examination/study. This report was electronically signed by CHIRAG VANG M.D. on02/13/2019 9:27 AM . Lucila Mary MD US ORDERABLES * POTASSIUM URINE RANDOM (02/12/2019 3:19 PM CDT) Potassium Urine 24 Not Established mmol/L 02/12/2019 3:57 PM CDT [facility] Urine URINE SPECIMEN OBTAINED BY CLEAN CATCH PROCEDURE / Unknown Collection / Unknown 02/12/2019 3:19 PM CDT 02/12/2019 3:22 PM CDT Lucila Mary MD LAB - URINE CHEMISTR Y ORDERABLES Performing Organization Address [facility]/[place] [address], [facility] [phone] * OSMOLALITY URINE (02/12/2019 3:19 PM CDT) [facility] Osmolality Urine 429 50-1,200 mOsm/kg 02/12/2019 4:07 PM [facility] Urine URINE SPECIMEN OBTAINED BY CLEAN CATCH PROCEDURE / Unknown Collection / Unknown 02/12/2019 3:19 PM CDT 02/12/2019 3:22 PM CDT Lucila Mary MD LAB - URINE CHEMISTR Y ORDERABLES Performing Organization Address [facility] Co de Phone Number [address] [phone] * (ABNORMAL) COMPREHENSIVE METABOLIC PANEL (02/12/2019 1:59 PM CDT) [facility] BUN 53(H) 7 - 26 mg/dL 02/12/2019 2:23 PM [facility] Creatinine 4.3(H) 0.6 - 1.2 mg/dL 02/12/2019 2:23 PM [facility] Sodium 140 136 - 145 mmol/L 02/12/2019 2:23 PM [facility] Potassium 4.6(H) 3.5 - 4.5 mmol/L 02/12/2019 2:23 PM [facility] Chloride 107 98 - 107 mmol/L 02/12/2019 2:23 PM [facility] CO2 24 22 - 29 mmol/L 02/12/2019 2:23 PM [facility] Glucose 112 70 - 115 mg/dL 02/12/2019 2:23 PM [facility] Calcium 9.5 8.4 - 10.2 mg/dL 02/12/2019 2:23 PM [facility] Protein Total 6.5 6.0 - 8.3 g/dL 02/12/2019 2:23 PM [facility] Albumin 3.3(L) 3.4 - 5.0 g/dL 02/12/2019 2:23 PM [facility] Bilirubin Total 0.3 0.2 - 1.2 mg/dL 02/12/2019 2:23 PM [facility] Alkaline Phosphatase 75 40 - 150 Units/L 02/12/2019 2:23 PM [facility] ALT 13 0 - 55 Units/L 02/12/2019 2:23 PM [facility] AST 16 5 - 34 Units/L 02/12/2019 2:23 PM [facility] Anion Gap 14 8 - 18 02/12/2019 2:23 PM [facility] BUN/Creatinine Ratio 12 7 - 23 02/12/2019 2:23 PM [facility] Osmolality Calculated 305(H) 270 - 300 mOsm/kg 02/12/2019 2:23 PM [facility] Albumin/Globulin Ratio 1.0(L) 1.1 - 2.3 02/12/2019 2:23 PM [facility] eGFR 15(L) >60 mL/min/1.7 3 m2 02/12/2019 2:23 PM [facility] Blood BLOOD SPECIMEN / Unknown Venipuncture / Unknown 02/12/2019 1:59 PM CDT 02/12/2019 2:04 PM CDT Karma Parr PA-C LAB - CHEMISTRY ORDERABLES [facility] [address] [place] [address] * VASCULAR LAB ORDER (02/10/2019 3:13 PM [...] placed: Bard power injectable Catheter size: 5 Nauruan Catheter intravascular length: 41 cm Catheter tip [...] fluoroscopically verified and image archived. Catheter placed: [employer] power injectable Catheter size: 5 Nauruan Catheter intravascular length: 41 cm Catheter tip [...] - 6.3 % 01/29/2019 8:08 AM CDT [facility] Estimated Average Glucose 151 mg/dL 01/29/2019 8:08 AM CDT [facility] Comment: HbA1c Interpretation: Treatment target values recommended by ADA and other clinical organizations should be used to evaluate metabolic control in patients. Treatment Target Values: Normal : < 5.7% Pre-diabetes: 5.7-6.4% Diabetes: Equal to or greater than 6.5% Reference: [place] [employer] Standards of Care in Diabetes -2014 In patients 70 years and older consider HbA1c target range of 7.0-7.5% Reference: Diabetes Mellitus in Older People: Position Statement on behalf of the International Association of Gerontology and Geriatrics (IAGG), the Diabetes Working Libertarian for Older People (EDWPOP), and the International Task Force of Experts in Diabetes. Mehrdad Aleman, et al. J [place] [employer]. 2012 Test results diagnostic of diabetes should be repeated for confirmation. The Sebia Capillary 2 assay for the measurement of HbA1c is a National Glycohemoglobin Standardization Program (NGSP)certified method. Blood BLOOD SPECIMEN / Unknown Lab Venipuncture / Unknown 01/29/2019 6:21 AM CDT 01/29/2019 6:47 AM CDT Melisa Meyers MD LAB - CHEMISTRY JOVANNI SEARS [facility] [address] [place] [address] * XR FOOT LEFT 3VW OR MORE [...] suggest osteomyelitis. Dictated by Liam Alcala MD (residential leasing agent). Dr. ANA Skinner have personally reviewed and [...] suggest osteomyelitis. Dictated by Liam Alcala MD (residential leasing agent). Dr. ANA Skinner have personally reviewed and interpreted this examination/study. This report was electronically signed by ANA CARDOSO on 01/30/2019 8:31 AM . Melisa Meyers MD DIAGNOSTIC IMAGING O [place] * CULTURE BLOOD (01/28/2019 3:52 PM CDT) Only the most recent of2 resultswithin the time period is included. Culture No growth day 5 ZIA 02/02/2019 7:30 PM CDT [facility] MICROBIOLOGY Blood PERIPHERAL BLOOD / Unknown Venipuncture / Unknown 01/28/2019 3:52 PM CDT 01/28/2019 3:59 PM CDT Melisa Meyers MD LAB - MICROBIOLOGY O RDYARELI Performing Organization Address City/[facility]/ZIP Co de Phone Number [facility] MICROBIOLOGY [address] [phone] * (ABNORMAL) C-REACTIVE PROTEIN (01/28/2019 3:51 PM CDT) C-Reactive Protein 14.6(H) <=0.5 mg/dL 01/28/2019 4:24 PM [address]T [facility] Blood BLOOD SPECIMEN / Unknown Venipuncture / Unknown 01/28/2019 3:51 PM CDT 01/28/2019 4:00 PM CDT Melisa Meyers MD LAB - CHEMISTRY JOVANNI SEARS [address] [phone] * (ABNORMAL) ERYTHROCYTE SEDIMENTATION RATE (01/28/2019 3:51 PM CDT) Erythrocyte Sedimentation Rate Westergren 113(H) 0 - 20 MM/HR 01/28/2019 4:09 PM CDT [facility] Blood BLOOD SPECIMEN / Unknown Venipuncture / Unknown 01/28/2019 3:51 PM CDT 01/28/2019 3:59 PM CDT Melisa Meyers MD LAB - HEMATOLOGY ORD ERALUKE [facility] [address] [place] [address], [facility] [phone] * LACTIC ACID BLOOD (01/28/2019 3:51 PM CDT) Lactic Acid-Stat 1.4 0.5 - 2.0 mmol/L 01/28/2019 4:13 PM CDT [facility] Blood BLOOD SPECIMEN / Unknown Venipuncture / Unknown 01/28/2019 3:51 PM CDT 01/28/2019 4:00 PM CDT Melisa Meyers MD LAB - CHEMISTRY JOVANNI SEARS Performing Organization Address City/[facility]/ZIP Co de Phone Number [address] [address], [facility] [phone] Care Teams Patient Insurance Clerk Relationship Specialty Start Date End Date Miguelito Albrecht MD [address] [place] [address] [phone] PCP - General 01/28/19
--- OUTSIDE RECORDS SUMMARY | 2024-07-15 20:54 | XMS_ITS | Referral Summary ---
Author Organization [facility] Address [address] [place] [address] Care Team Providers Care Floorman Name Role Phone Miguelito Albrecht MD Primary Care Provider Source Comments [facility],non-owned Affiliates and Associated Physician Practices is amultiple site organization consisting of ambulatory clinics and hospital sitesin [place], [place], [place] and [place]. This disclosure is being madepursuant to the Care Everywhere program and may not contain all information available regarding this patient. Last updated 18.[facility] Allergies No known active allergies Medications * [...] Comments Blood Pressure 148/81 07/01/2019 12:26 PM [facility] Pulse 80 07/01/2019 12:26 PM [facility] Temperature 36.2 C (97.1 F) 07/01/2019 12:26 PM [facility] Respiratory Rate 16 04/29/2019 4:12 AM [facility] Oxygen Saturation 98% 07/01/2019 12:26 PM [facility] Inhaled Oxygen Concentration 40% 04/27/2019 1:45 PM [facility] Weight 115.2 kg (254 lb) 07/01/2019 12:26 PM [facility] Height 188 cm (6' 2 ) 07/01/2019 12:26 PM [facility] Body Mass Index 32.61 07/01/2019 12:26 PM [facility] Functional Status Functional Status Response Date of [...] PANEL (CALCIUM TOTAL) Routine 04/29/2019 5:22 AM [facility] Diabetic foot infection (HCC) HEMOGLOBIN A1C Routine 01/29/2019 6:21 AM CDT from Last 3 Months or Most Recently Relevant to Health Maintenance Results * (ABNORMAL) BASIC METABOLIC PANEL (CALCIUM TOTAL) (04/29/2019 5:22 AM [facility]) BUN 21 7 - 26 mg/dL 04/29/2019 5:55 AM [facility] Creatinine 0.9 0.6 - 1.2 mg/dL 04/29/2019 5:55 AM [facility] Sodium 140 136 - 145 mmol/L 04/29/2019 5:55 AM [facility] Potassium 4.1 3.5 - 4.5 mmol/L 04/29/2019 5:55 AM [facility] Chloride 103 98 - 107 mmol/L 04/29/2019 5:55 AM [facility] CO2 29 22 - 29 mmol/L 04/29/2019 5:55 AM [facility] Glucose 151(H) 70 - 115 mg/dL 04/29/2019 5:55 AM [facility] Calcium 9.6 8.4 - 10.2 mg/dL 04/29/2019 5:55 AM [facility] Anion Gap 12 8 - 18 04/29/2019 5:55 AM [facility] BUN/Creatinine Ratio 23 7 - 23 04/29/2019 5:55 AM [facility] Osmolality Calculated 296 270 - 300 mOsm/kg 04/29/2019 5:55 AM [facility] eGFR >60 >60 mL/min/1.7 3 m2 04/29/2019 5:55 AM [facility] Blood BLOOD SPECIMEN / Unknown Venipuncture / Unknown 04/29/2019 5:22 AM [facility] 04/29/2019 5:27 AM [facility] Diana Aguila DO LAB - CHEMISTRY ORDERABLES [facility] [address] [place] [address] * (ABNORMAL) HEMOGLOBIN A1C (01/29/2019 6:21 AM CDT) Hemoglobin A1c 6.9(H) 4.4 - 6.3 % 01/29/2019 8:08 AM CDT [facility] Estimated Average Glucose 151 mg/dL 01/29/2019 8:08 AM CDT [facility] Comment: HbA1c Interpretation: Treatment target values recommended by ADA and other clinical organizations should be used to evaluate metabolic control in patients. Treatment Target Values: Normal : < 5.7% Pre-diabetes: 5.7-6.4% Diabetes: Equal to or greater than 6.5% Reference: [place] [employer] Association Standards of Care in Diabetes -2014 In patients 70 years and older consider HbA1c target range of 7.0-7.5% Reference: Diabetes Mellitus in Older People: Position Statement on behalf of the International Association of Gerontology and Geriatrics (IAGG), the Diabetes Working Constitution Party for Older People (EDWPOP), and the International Task Force of Experts in Diabetes. Mehrdad Aleman, et al. J [place] [employer] Association. 2012 Test results diagnostic of diabetes should be repeated for confirmation. The Sebia Capillary 2 assay for the measurement of HbA1c is a National Glycohemoglobin Standardization Program (NGSP)certified method. Blood BLOOD SPECIMEN / Unknown Lab Venipuncture / Unknown 01/29/2019 6:21 AM CDT 01/29/2019 6:47 AM CDT Melisa Meyers MD LAB - CHEMISTRY JOVANNI SEARS [facility] Organization Address City/State/ZIP Co de Phone Number [address] [phone] from Last 3 Months or Most Recently [...] 5:44 PM 02/04/2019 6:59 PM Care Teams Floorman Relationship Specialty [place] [address] [place] [address] [phone] PCP - General 01/28/19
--- OUTSIDE RECORDS SUMMARY | 2024-07-15 20:54 | XMS_ITS | Clinical Summary ---
Author Organization [facility] Address [address] [place] [address] Care Team Providers Care Cross Roller Name Role Phone Miguelito Albrecht MD Primary Care Provider Source Comments [facility],non-owned Affiliates and Associated Physician Practices is amultiple site organization consisting of ambulatory clinics and hospital sitesin [place], [place], [place] and [place]. This disclosure is being madepursuant to the Care Everywhere program and may not contain all information available regarding this patient. Last updated 18.[facility] Allergies No known active allergies Medications * [...] Comments Blood Pressure 148/81 07/01/2019 12:26 PM [facility] Pulse 80 07/01/2019 12:26 PM [facility] Temperature 36.2 C (97.1 F) 07/01/2019 12:26 PM [facility] Respiratory Rate 16 04/29/2019 4:12 AM [facility] Oxygen Saturation 98% 07/01/2019 12:26 PM [facility] Inhaled Oxygen Concentration 40% 04/27/2019 1 :45 PM [facility] Weight 115.2 kg (254 lb) 07/01/2019 12:26 PM [facility] Height 188 cm (6' 2 ) 07/01/2019 12:26 PM [facility] Body Mass Index 32.61 07/01/2019 12:26 PM [facility] Plan of Treatment Health Maintenance Due Date [...] PANEL (CALCIUM TOTAL) Routine 04/29/2019 5:22 AM [facility] Diabetic foot infection (HCC) HEMOGLOBIN A1C Routine 01/29/2019 6:21 AM CDT from Last 3 Months or Most Recently Relevant to Health Maintenance Results * (ABNORMAL) BASIC METABOLIC PANEL (CALCIUM TOTAL) (04/29/2019 5:22 AM [facility]) BUN 21 7 - 26 mg/dL 04/29/2019 5:55 AM [facility] Creatinine 0.9 0.6 - 1.2 mg/dL 04/29/2019 5:55 AM [facility] Sodium 140 136 - 145 mmol/L 04/29/2019 5:55 AM [facility] Potassium 4.1 3.5 - 4.5 mmol/L 04/29/2019 5:55 AM [facility] Chloride 103 98 - 107 mmol/L 04/29/2019 5:55 AM [facility] CO2 29 22 - 29 mmol/L 04/29/2019 5:55 AM [facility] Glucose 151(H) 70 - 115 mg/dL 04/29/2019 5:55 AM [facility] Calcium 9.6 8.4 - 10.2 mg/dL 04/29/2019 5:55 AM [facility] Anion Gap 12 8 - 18 04/29/2019 5:55 AM [facility] BUN/Creatinine Ratio 23 7 - 23 04/29/2019 5:55 AM [facility] Osmolality Calculated 296 270 - 300 mOsm/kg 04/29/2019 5:55 AM [facility] eGFR >60 >60 mL/min/1.7 3 m2 04/29/2019 5:55 AM [facility] Blood BLOOD SPECIMEN / Unknown Venipuncture / Unknown 04/29/2019 5:22 AM [facility] 04/29/2019 5:27 AM [facility] Diana Aguila DO LAB - CHEMISTRY ORDERABLES [address] [phone] * (ABNORMAL) HEMOGLOBIN A1C (01/29/2019 6:21 AM CDT) Hemoglobin A1c 6.9(H) 4.4 - 6.3 % 01/29/2019 8:08 AM [facility] Estimated Average Glucose 151 mg/dL 01/29/2019 8:08 AM [facility] Comment: HbA1c Interpretation: Treatment target values recommended by ADA and other clinical organizations should be used to evaluate metabolic control in patients. Treatment Target Values: Normal : < 5.7% Pre-diabetes: 5.7-6.4% Diabetes: Equal to or greater than 6.5% Reference: [place] Diabetes Association Standards of Care in Diabetes -2014 In patients 70 years and older consider HbA1c target range of 7.0-7.5% Reference: Diabetes Mellitus in Older People: Position Statement on behalf of the International Association of Gerontology and Geriatrics (IAGG), the Diabetes Working Alliance Party for Older People (EDWPOP), and the International Task Force of Experts in Diabetes. Mehrdad Aleman, et al. J [place] [employer] Association. 2012 Test results diagnostic of diabetes should be repeated for confirmation. The Sebia Capillary 2 assay for the measurement of HbA1c is a National Glycohemoglobin Standardization Program (NGSP)certified method. Blood BLOOD SPECIMEN / Unknown Lab Venipuncture / Unknown 01/29/2019 6:21 AM CDT 01/29/2019 6:47 AM CDT Melisa Meyers MD LAB - CHEMISTRY JOVANNI SEARS [facility] Organization Address City/State/ZIP Co de Phone Number [address] [phone] from Last 3 Months or Most Recently [...] 5:44 PM 02/04/2019 6:59 PM Care Teams Cross Roller Relationship Specialty Start Date End Date Miguelito Albrecht MD [address] [place], [place] [phone] PCP - General 01/28/19
--- OUTSIDE RECORDS SUMMARY | 2024-07-15 20:54 | XMS_ITS | Continuity of Care Document ---
Author Organization [facility] Address [address] [place] [address] Phone Care Team Providers Care Rn Managed Care Name Role Phone Unavailable Unavailable Unavailable Procedures Procedure Date X-ray exam lwr spine, min 4 views Supplemental Report Advance Directives Directive Yes / No Effective Date File Name No Information Encounters Encounter Description Practice Location Reason(s) For Visit Diagnoses Date Provider Providers Copied on Encounter [facility], [address], [place], [place], [id number], [place] tel:[phone] [facility] No Information 3200 6 No Information Family History Family Member Type Diagnosis Age At Onset No Information Payers Payer name Insurance type Covered constitution party ID Authoriza timichelle(s) doForms [id number] Social History Type Description Quantity Date Captured [...]
[2024-07-15 21:13] LABS: Basophils Percent Auto 0.5 % (0.2-1.2); Eosinophils Absolute Auto 0.1 K/mm3 (0-0.3); Eosinophils Percent Auto 1.7 % (0-4.4); Hematocrit 44.9 % (42.0-52.0); Immature Granulocyte Absolute 0.01 K/mm3 (0.00-0.031); Immature Granulocyte Percent A 0.2 % (0-0.5); Lymphocytes Absolute Auto 1.99 K/mm3 (0.9-3.2); Lymphocytes Percent Auto 30.3 % (18.3-44.2); Mean Corpuscular HGB Conc 33.4 g/dl (32-36); Mean Corpuscular Hemoglobin 30.7 pg (26-34); Mean Platelet Volume 8.9 fl (7.4-10.4); Monocytes Absolute Auto 0.5 K/mm3 (0.1-0.6); Monocytes Percent Auto 6.8 % (2.6-8.5); Neutrophils Percent Auto 60.5 % (45.5-73.1); Platelet Count Result 153 k/mm3 (150-375); Red Blood Count 4.88 M/mm3 (4.6-6.20); Red Cell Distribution Width 12.5 % (11.5-14.5); White Blood Count 6.6 K/mm3 (4.5-10.0)
[2024-07-15 21:26] LABS: Alanine Aminotransferase 30 U/L (6-50); Albumin Level 3.9 g/dL (3.5-5.1); Alkaline Phosphatase 102 U/L (38-126); Anion Gap 7 mmol/L (4-12); Aspartate Amino Transferase 30 U/L (17-59); Bilirubin,Total 0.5 mg/dL (0.2-1.3); Blood Urea Nitrogen 17 mg/dL (9-20); CRP < 0.5 mg/dL (<1.0); Calcium 9.4 mg/dL (8.4-10.2); Carbon Dioxide 31 mmol/L (22-30); Chloride 100 mmol/L (98-107); Estimated CRCL calculation 123 ml/min; Estimated Glomerular Filt Rate > 60; Glucose 128 mg/dL (65-110); Potassium 4.2 mmol/L (3.4-5.0); Sodium 138 mmol/L (137-145)
[2024-07-15 21:47] VITALS: BP 119/70; PULSE 60; RESP 17; O2SAT 98
[2024-07-15 21:47] LABS: Erythrocyte Sedimentation Rate 12 mm/hr (0-20)
[2024-07-15] MEDS: CEFEPIME 2 GM/NS 50 ML 2 GM/50 ML BAG IVPB (23:07)
[2024-07-16] VITALS (11 sets, daily range): BP systolic 85–131; BP diastolic 54–75; PULSE 53–69; RESP 10–18; TEMP 35.6–37.3; O2SAT 95–100; BMI 28.9
[2024-07-16] MEDS: metroNIDAZOLE 500 MG/ISO 100ML 500 MG/100 ML BAG 100 MG IVPB ×4 (00:32→22:12)
[2024-07-16] MEDS: LINEZOLID 600 MG/300 ML 600 MG/300 ML SOLN 300 MG IVPB ×2 (01:34→13:43)
--- NOTE | 2024-07-16 02:15 | ADMGEN ---
This patient, Bob Webster II, was admitted to [facility] Surg Room 333-01. Patient/family oriented to hospital policies and general routines including ID bracelet, bed and alarms, visiting hours, pain management, procedures, bathroom and other care routines, personal items, smoking policy, room service/diet, and visiting hours. Information on how to activate the Rapid Response Team has been discussed. Patient/Family are encouraged to report perceived risks to care and to ask questions if they do not understand what they are told or what they should do.
[2024-07-16 02:39] LABS: Amphetamine Screen Urine Negative (Negative); Barbiturate Screen Urine Negative (Negative); Benzodiazepines Screen Urine Negative (Negative); Cannabinoid Screen Urine Positive (Negative); Cocaine Screen Urine Negative (Negative); Methadone Screen Urine Negative (Negative); Opiate Screen Urine Negative (Negative); Phencyclidine Screen Urine Negative (Negative)
[2024-07-16] MEDS: CEFEPIME 2 GM/NS 50 ML 2 GM/50 ML BAG IVPB ×3 (05:08→21:30)
[2024-07-16 06:23] LABS: Basophils Percent Auto 0.4 % (0.2-1.2); Eosinophils Absolute Auto 0.1 K/mm3 (0-0.3); Hemoglobin 15.3 g/dL (14.0-18.0); Immature Granulocyte Absolute 0.03 K/mm3 (0.00-0.031); Immature Granulocyte Percent A 0.4 % (0-0.5); Lymphocytes Absolute Auto 1.66 K/mm3 (0.9-3.2); Lymphocytes Percent Auto 24.8 % (18.3-44.2); Mean Corpuscular HGB Conc 32.6 g/dl (32-36); Mean Corpuscular Hemoglobin 30.1 pg (26-34); Mean Corpuscular Volume 92.5 fl (80-100); Mean Platelet Volume 9.1 fl (7.4-10.4); Monocytes Absolute Auto 0.5 K/mm3 (0.1-0.6); Neutrophils Absolute Auto 4.4 K/mm3 (1.3-6.7); Neutrophils Percent Auto 66.4 % (45.5-73.1); Platelet Count Result 153 k/mm3 (150-375); Red Blood Count 5.08 M/mm3 (4.6-6.20); Red Cell Distribution Width 12.1 % (11.5-14.5); White Blood Count 6.7 K/mm3 (4.5-10.0)
[2024-07-16 06:28] LABS: Potassium 4.2 mmol/L (3.4-5.0)
[2024-07-16 06:46] LABS: Prothrombin Time 13.2 Seconds (11.1-14.7)
[2024-07-16 07:34] LABS: Anion Gap 6 mmol/L (4-12); Blood Urea Nitrogen 15 mg/dL (9-20); Calcium 9.5 mg/dL (8.4-10.2); Carbon Dioxide 31 mmol/L (22-30); Chloride 101 mmol/L (98-107); Estimated CRCL calculation 121 ml/min; Estimated Glomerular Filt Rate > 60; Glucose 107 mg/dL (65-110); Magnesium 1.5 mg/dL (1.6-2.3); Sodium 138 mmol/L (137-145)
--- NOTE | 2024-07-16 07:35 | PC.NURSE ---
To US per wheelchair.
--- NOTE | 2024-07-16 07:55 | P.HP_ITS ---
H&P: HPI History of Present Illness Date/Time: 07/16/24 07:55 Chief Complaint: Hematuria, 3rd toe nonhealing wound Narrative: 58-year-old man with history of type 2 diabetes, hyperlipidemia, anxiety, profound dementia present ED with a chief complaint of hematuria and 3rd toe nonhealing wound. Patient has a profound dementia, he is unable to provide history. History is taken from ER physician. Patient came from home, patient is taking care by patient's . Patient's noticed patient had 2 episode gross hematuria in past 2 days. And patient also had a nonhealing ulcer of right 3rd toe. There patient was brought to ED for evaluation treatment. When I saw exam patient, patient did not have obvious distress, patient is alert, but not oriented x3. Patient cannot recall what happened to him today and why he was brought to ED for evaluation treatment. He denies headache, chest pain, shortness breast, abdomen pain, nausea vomiting diarrhea dysuria. But patient can not feel the pain of 3rd toe. I am not sure if patient understands my questions patient has a profound dementia. Upon arrival to ED, patient afebrile, blood pressure stable, bradycardia 53, CBC unremarkable, chemistry showed bicarbonate 31, magnesium 1.5, urinalysis showed hematuria 21-50, x-ray showed osteomyelitis of distal phalanx of 3rd toe. CT abdomen pelvis shows nonobstructing kidney stone 2.5 mL with a red kidney, exophytic focus of the soft-tissue attenuation within the left kidney. Review of Systems Review of Systems: ROS negative except above PMFSH Past Medical History Medical History Dementia Amputation toe Burn erythema of left lower leg Left leg swelling Gangrene of right foot Smoking Bacteremia due to Streptococcus pneumoniae (06/2021) With septic left knee and anterior chest abscess. History of MRSA infection Polysubstance abuse Including methamphetamines and marijuana. Diabetic peripheral neuropathy Type 2 diabetes mellitus Hemoglobin A1c was 6.1% on 08/20/2021. Obesity Hypercholesterolemia Tobacco dependence Amphetamine abuse Patient is vague as to how often he uses. Surgical History Surgical History History of incision and drainage (10/04/20) -Complex incision and drainage of right diabetic foot ulcer per Dr. Zhao on 10/04/2020. -Incision and drainage of complicated sternal abscess on 06/26/[address] Ramirez. -Incision and drainage of left knee joint and debridement of right foot 1st ray wound on 06/28/[address] Alvarez. - Extensive incision and drainage of an anterior chest abscess at [facility]. History of carpal tunnel release (~09/07/20) Left-sided per Dr. Escobedo. History of colonoscopy (~10/2008) Negative aside from internal hemorrhoidal tissue per Dr. Damico. Status post debridement (~12/21/19) Excisional debridement of skin, subcutaneous tissue, and muscle of a 4 cm2 ulcer of the plantar surface of the right foot with removal foreign body under fluoroscopy per Dr. Raymundo. Family History Family History Father Hypertension Cerebrovascular accident Other Carcinoma of colon Diabetes mellitus Social History Social History Social History: Surrogate decision maker: Maxwell Webster, spouse. Code status: Full code. Smoking packs per day: 1 Smoking cigarettes per day: 20.0 Years smoked: 20 Smoking pack-years: 20.00 Smoking status: Former smoker Tobacco type: cigarettes Second hand tobacco smoke exposure: No Alcohol intake: former Drinks per week: 5 Alcohol use details: Drinks several alcoholic beverages a month. Substance use: former Substance use type: marijuana and methamphetamine Other substance usage details: Previous history of methamphetamine use. Last use: 2019 Living arrangements: with family Additional living arrangements comments: Lives in [place] with his spouse. Occupation/Education: unemployed Additional occupation/education comments: Unemployed. Spiritual care concerns: No Meds Home Medications and Allergies Home Medications ?Medication ?Instructions ?Recorded ?Confirmed ?Type metformin 500 mg tablet 500 mg PO BID #60 tabs 04/20/21 07/16/24 Rx amitriptyline 25 mg tablet 25 mg PO QHS 05/28/24 07/16/24 History aripiprazole 10 mg tablet 10 mg PO DAILY 05/28/24 07/16/24 History atorvastatin 40 mg tablet 40 mg PO DAILY 05/28/24 07/16/24 History duloxetine 30 mg capsule,delayed 30 mg PO DAILY 05/28/24 07/16/24 History release empagliflozin 25 mg tablet 25 mg PO DAILY 05/28/24 07/16/24 History (Jardiance) metoprolol tartrate 25 mg tablet 25 mg PO BID 05/28/24 07/16/24 History docusate sodium 100 mg capsule 100 mg PO DAILY 07/16/24 07/16/24 History (Colace) Allergies Allergy/AdvReac Type Severity Reaction Status Date / Time vancomycin AdvReac Other Verified 07/16/24 14:38 Vital Signs Vital Signs - 24 hr 07/15/24 19:05 07/15/24 21:47 07/16/24 01:00 Temperature 97.6 F Pulse Rate 64 60 61 Respiratory Rate 20 17 17 Blood Pressure 104/90 119/70 122/72 Pulse Oximetry 98 98 99 Oxygen Delivery Room Air 07/16/24 01:26 07/16/24 05:25 Temperature 97.8 F 97.6 F Pulse Rate 60 53 L Respiratory Rate 18 16 Blood Pressure 129/75 123/74 Pulse Oximetry 99 98 Oxygen Delivery Exam Narrative: GENERAL: Pleasant, in no acute distress. Well-nourished. - EYES: EOMI. Anicteric. - HENT: Moist mucous membranes. - LUNGS: Clear to auscultation bilateral ly, no wheezing, rhonchi, or rales. - CARDIOVASCULAR: Regular rate and rhyth m. No murmur. No JVD. - ABDOMEN: Soft, non-tender and non-dist ended. No palpable masses. - EXTREMITIES: No edema. Peripheral puls es 2+. Non-tender. Right 1st toe amputation, nonhealing ulcer of right 3rd toe, the wound is dry - NEUROLOGIC: No focal neurological defi cits. CN II-XII grossly intact. - PSYCHIATRIC: Awake, Alert and not orie nted x 3. Appropriate mood and affect. - SKIN: No rashes or lesions. Warm. - LYMPH: No cervical lymphadenopathy. H&P: Results Labs Labs: Short CBC 07/15/24 07/16/24 Range/Units 21:08 06:06 WBC 6.6 6.7 (4.5-10.0) K/mm3 Hgb 15.0 D 15.3 (14.0-18.0) g/dL Hct 44.9 47.0 (42.0-52.0) % Plt Count 153 153 (150-375) k/mm3 [facility] 07/15/24 07/16/24 21:08 06:06 Sodium 138 138 Potassium 4.2 4.2 Chloride 100 101 Carbon Dioxide 31 H 31 H BUN 17 15 Creatinine 0.67 L 0.68 L Glucose 128 H 107 Calcium 9.4 9.5 Liver Function 07/15/24 Range/Units 21:08 Total Bilirubin 0.5 (0.2-1.3) mg/dL AST 30 (17-59) U/L ALT 30 (6-50) U/L Alkaline Phosphatase 102 (38-126) U/L Albumin 3.9 (3.5-5.1) g/dL Urine 07/15/24 Range/Units 20:44 Urine Color Yellow (Yellow) Urine Appearance Clear (Clear) Urine pH 6.0 (5.0-9.0) Ur Specific [place] 1.027 (1.001-1.035) Urine Protein Trace (Negative) mg/dL Urine Glucose (UA) 3+ H (Negative) mg/dL Assessment and Plan Assessment and plan (1) Osteomyelitis of toe of right foot: Code(s): M86.9 - Osteomyelitis, unspecified Status: Acute (2) Diabetic ulcer of left foot: Qualifiers: Diabetes mellitus type: type 2 Diabetic foot ulcer location: midfoot Non-pressure ulcer stage: limited to breakdown of skin Qualified Code(s): E11.621 - Type 2 diabetes mellitus with foot ulcer; L97.421 - Non-pressure chronic ulcer of left heel and midfoot limited to breakdown of skin Code(s): E11.621 - Type 2 diabetes mellitus with foot ulcer; L97.529 - Non-pressure chronic ulcer of other part of left foot with unspecified severity Status: Chronic (3) Type 2 diabetes mellitus: Code(s): E11.9 - Type 2 diabetes mellitus without complications Status: Acute (4) Gross hematuria: Code(s): R31.0 - Gross hematuria Status: Acute Plan Gross hematuria Urinalysis shows hematuria CT abdomen pelvis shows nonobstructing kidney stone 2.5 mL with a red kidney, exophytic focus of the soft-tissue attenuation within the left kidney. Pending renal ultrasound Consult urologist for evaluation treatment Diabetic ulcer and osteomyelitis of the right foot 3rd toe Patient has chronic diabetic ulcer of the 3rd toe of the right foot, the wound is dry, no purulent discharge Further x-rays suggest osteomyelitis of the distal phalanx of the 3rd toe Received Zyvox, cefepime and Flagyl IV in the ED Consult general surgeon for evaluation treatment Bradycardia Pending EKG Hold metoprolol p.o. Hyperlipidemia Continue Lipitor 40 mg daily p.o. Type 2 diabetes hold metformin and Jardiance Start insulin sliding scale a.c. and q.h.s. Dementia Patient has the dementia, not oriented x3 Consult PT OT resident care provider for evaluation and assisting placement Hospitalist MIPS Advance Care Plan I have confirmed that the patient's Advanced Care Plan is present, code status is documented, or surrogate decision maker is listed in patient medical record.: Yes Medication Reconciliation I have utilized all available resources to obtain, update and review the patients current medications (includes all prescriptions, OTC, herbals, cannabis, and nutritional supplements).: Yes
[2024-07-16 08:37] LABS: Glucose Point of Care 124 mg/dl (65-105)
[2024-07-16] MEDS: ARIPiprazole 10 MG TABLET PO (09:26)
[2024-07-16] MEDS: ATORVASTATIN 40 MG TABLET PO (09:26)
[2024-07-16] MEDS: metFORMIN HCL 500 MG TABLET PO ×2 (09:26→17:05)
[2024-07-16] MEDS: EMPAGLIFLOZIN 25 MG TABLET PO (09:26)
[2024-07-16] MEDS: DOCUSATE SODIUM 100 MG CAPSULE PO (09:26)
[2024-07-16] MEDS: METOPROLOL TARTRATE 25 MG TABLET PO ×2 (09:26→17:05)
[2024-07-16 11:44] LABS: Glucose Point of Care 109 mg/dl (65-105)
--- NOTE | 2024-07-16 12:40 | WPDURCON ---
Assessment and Plan Assessment and plan (1) Hematuria: Qualifiers: Hematuria type: gross Qualified Code(s): R31.0 - Gross hematuria Code(s): R31.9 - Hematuria, unspecified Status: Acute (2) Cyst of left kidney: Code(s): N28.1 - Cyst of kidney, acquired Status: Acute Assessment and Plan: Cystoscopy today to complete hematuria evaluation Urology Consult Note HPI Date Seen: 07/16/24 Requesting Physician: Christine Mendez MD Primary Care Provider: Miguelito Mullen*Patricia Consult Narrative Narrative: Bob Webster II is a 58 year old male who was previously unknown to our practice and without prior known urological history. He was admitted through the emergency department with a nonhealing toe ulcer and possible osteomyelitis. Additionally he has noticed a 2 to three-day history of intermittent scant painless gross hematuria. His also reports a possible small clot in bladder couple days ago. He denies a history of recurrent urinary tract infection, urolithiasis or dysuria. A CT scan of the abdomen and pelvis with contrast obtained on admission. It showed a exophytic lower pole cystic structure that was confirmed by repeat renal ultrasonography to be a simple cyst. His upper urinary tracts were otherwise unremarkable. Urinalysis does document persistent micro hematuria. Review of Systems Cardiovascular: Cardiovascular: Denies chest pain, Denies lightheadedness, Denies palpitations and Denies dyspnea Respiratory: Respiratory: Denies dyspnea Gastrointestinal: Gastrointestinal: Denies diarrhea, Denies nausea and Denies vomiting Genitourinary: Genitourinary: Denies hematuria and Denies dysuria Endocrine: Endocrine: Denies palpitations [facility] Past Medical History Medical History Dementia Amputation toe Burn erythema of left lower leg Left leg swelling Gangrene of right foot Smoking Bacteremia due to Streptococcus pneumoniae (06/2021) With septic left knee and anterior chest abscess. History of MRSA infection Polysubstance abuse Including methamphetamines and marijuana. Diabetic peripheral neuropathy Type 2 diabetes mellitus Hemoglobin A1c was 6.1% on 08/20/2021. Obesity Hypercholesterolemia Tobacco dependence Amphetamine abuse Patient is vague as to how often he uses. Surgical History Surgical History History of incision and drainage (10/04/20) -Complex incision and drainage of right diabetic foot ulcer per Dr. Zhao on 10/04/2020. -Incision and drainage of complicated sternal abscess on 06/26/[address] Ramirez. -Incision and drainage of left knee joint and debridement of right foot 1st ray wound on 06/28/[address] Alvarez. - Extensive incision and drainage of an anterior chest abscess at [facility]. History of carpal tunnel release (~09/07/20) Left-sided per Dr. Escobedo. History of colonoscopy (~10/2008) Negative aside from internal hemorrhoidal tissue per Dr. Damico. Status post debridement (~12/21/19) Excisional debridement of skin, subcutaneous tissue, and muscle of a 4 cm2 ulcer of the plantar surface of the right foot with removal foreign body under fluoroscopy per Dr. Raymundo. Family History Family History Father Hypertension Cerebrovascular accident Other Carcinoma of colon Diabetes mellitus Social History Social History Social History: Surrogate decision maker: Maxwell Webster, spouse. Code status: Full code. Smoking packs per day: 1 Smoking cigarettes per day: 20.0 Years smoked: 20 Smoking pack-years: 20.00 Smoking status: Former smoker Tobacco type: cigarettes Second hand tobacco smoke exposure: No Alcohol intake: former Drinks per week: 5 Alcohol use details: Drinks several alcoholic beverages a month. Substance use: former Substance use type: marijuana and methamphetamine Other substance usage details: Previous history of methamphetamine use. Last use: 2019 Living arrangements: with family Additional living arrangements comments: Lives in [place] with his spouse. Occupation/Education: unemployed Additional occupation/education comments: Unemployed. Spiritual care concerns: No Meds Home Medications and Allergies Home Medications ?Medication ?Instructions ?Recorded ?Confirmed ?Type metformin 500 mg tablet 500 mg PO BID #60 tabs 04/20/21 07/16/24 Rx amitriptyline 25 mg tablet 25 mg PO QHS 05/28/24 07/16/24 History aripiprazole 10 mg tablet 10 mg PO DAILY 05/28/24 07/16/24 History atorvastatin 40 mg tablet 40 mg PO DAILY 05/28/24 07/16/24 History duloxetine 30 mg capsule,delayed 30 mg PO DAILY 05/28/24 07/16/24 History release empagliflozin 25 mg tablet 25 mg PO DAILY 05/28/24 07/16/24 History (Jardiance) metoprolol tartrate 25 mg tablet 25 mg PO BID 05/28/24 07/16/24 History docusate sodium 100 mg capsule 100 mg PO DAILY 07/16/24 07/16/24 History (Colace) Allergies Allergy/AdvReac Type Severity Reaction Status Date / Time vancomycin AdvReac Other Verified 07/15/24 22:30 Vital Signs Vital Signs - 24 hr 07/15/24 19:05 07/15/24 21:47 07/16/24 01:00 Temperature 97.6 F Pulse Rate 64 60 61 Respiratory Rate 20 17 17 Blood Pressure 104/90 119/70 122/72 Pulse Oximetry 98 98 99 Oxygen Delivery Room Air 07/16/24 01:26 07/16/24 05:25 07/16/24 08:00 Temperature 97.8 F 97.6 F Pulse Rate 60 53 L Respiratory Rate 18 16 Blood Pressure 129/75 123/74 Pulse Oximetry 99 98 Oxygen Delivery Room Air 07/16/24 10:45 Temperature Pulse Rate Respiratory Rate Blood Pressure Pulse Oximetry Oxygen Delivery Room Air Exam Const: General: no acute distress Resp: Effort & Inspection: normal respiratory effort GI: Inspection: non-distended GI Palp: No abdominal tenderness and No Guarding due to palpation present (GI) Auscultation: normal bowel sounds Results Labs 07/16/24 06:06 07/16/24 06:06 Labs: Short CBC 07/15/24 07/16/24 Range/Units 21:08 06:06 WBC 6.6 6.7 (4.5-10.0) K/mm3 Hgb 15.0 D 15.3 (14.0-18.0) g/dL Hct 44.9 47.0 (42.0-52.0) % Plt Count 153 153 (150-375) k/mm3 BMP 07/15/24 07/16/24 21:08 06:06 Sodium 138 138 Potassium 4.2 4.2 Chloride 100 101 Carbon Dioxide 31 H 31 H BUN 17 15 Creatinine 0.67 L 0.68 L Glucose 128 H 107 Calcium 9.4 9.5 Liver Function 07/15/24 Range/Units 21:08 Total Bilirubin 0.5 (0.2-1.3) mg/dL AST 30 (17-59) U/L ALT 30 (6-50) U/L Alkaline Phosphatase 102 (38-126) U/L Albumin 3.9 (3.5-5.1) g/dL Urine 07/15/24 Range/Units 20:44 Urine Color Yellow (Yellow) Urine Appearance Clear (Clear) Urine pH 6.0 (5.0-9.0) Ur Specific [place] 1.027 (1.001-1.035) Urine Protein Trace (Negative) mg/dL Urine Glucose (UA) 3+ H (Negative) mg/dL
--- NOTE | 2024-07-16 12:42 | WPDHPUPDATE1 ---
History and Physical Update Update Date/Time: 07/16/24 12:42 History and Physical has been reviewed, including an updated exam of the patient. There are NO changes in the patient's condition. Risks, benefits, and alternatives have been discussed and questions answered. Patient agrees to proceed with procedure.
--- NOTE | 2024-07-16 14:05 | PC.NURSE ---
To OR per hospital bed for Cystoscopy.
[2024-07-16] MEDS: LACTATED RINGERS 1,000 ML 30 ML IV CONT (14:15)
[2024-07-16 14:24] LABS: Glucose Point of Care 94 mg/dl (65-105)
--- NOTE | 2024-07-16 14:29 | WPDANESEPPF ---
Anes - Initial Pre Proc Eval Procedure: Operation Date: 07/16/24 16:30 Proposed Procedures p Flexible Cystoscopy - Rivas Waller MD Date/Time: 07/16/24 14:29 Surgeon: Christine Mendez MD Pre Op Diagnosis: Osteomyelitis Patient Data Age: 58 Gender: M Height: 1.88 m Weight: 102.3 kg Last Vital Signs Temp 35.6 C L 07/16/24 14:00 Pulse 54 L 07/16/24 14:00 Resp 16 07/16/24 14:00 BP 109/63 07/16/24 14:00 Pulse Ox 100 07/16/24 14:00 O2 Del Method Room Air 07/16/24 10:45 Allergies Allergy/AdvReac Type Severity Reaction Status Date / Time vancomycin AdvReac Other Verified 07/15/24 22:30 Home Medications ?Medication ?Instructions ?Recorded ?Confirmed ?Type metformin 500 mg tablet 500 mg PO BID #60 tabs 04/20/21 07/16/24 Rx amitriptyline 25 mg tablet 25 mg PO QHS 05/28/24 07/16/24 History aripiprazole 10 mg tablet 10 mg PO DAILY 05/28/24 07/16/24 History atorvastatin 40 mg tablet 40 mg PO DAILY 05/28/24 07/16/24 History duloxetine 30 mg capsule,delayed 30 mg PO DAILY 05/28/24 07/16/24 History release empagliflozin 25 mg tablet 25 mg PO DAILY 05/28/24 07/16/24 History (Jardiance) metoprolol tartrate 25 mg tablet 25 mg PO BID 05/28/24 07/16/24 History docusate sodium 100 mg capsule 100 mg PO DAILY 07/16/24 07/16/24 History (Colace) Laboratory Tests 07/15/24 07/15/24 07/16/24 20:44 21:08 02:14 WBC 6.6 K/mm3 (4.5-10.0) RBC 4.88 M/mm3 (4.6-6.20) Hgb 15.0 D g/dL (14.0-18.0) Hct 44.9 % (42.0-52.0) MCV 92.0 fl (80-100) MCH 30.7 pg (26-34) MCHC 33.4 g/dl (32-36) RDW 12.5 % (11.5-14.5) Plt Count 153 k/mm3 (150-375) MPV 8.9 fl (7.4-10.4) Immature Gran % (Auto) 0.2 % (0-0.5) Neut % (Auto) 60.5 % (45.5-73.1) Lymph % (Auto) 30.3 % (18.3-44.2) [place] % (Auto) 6.8 % (2.6-8.5) Eos % (Auto) 1.7 % (0-4.4) Baso % (Auto) 0.5 % (0.2-1.2) Lymph # (Auto) 1.99 K/mm3 (0.9-3.2) [place] # (Auto) 0.5 K/mm3 (0.1-0.6) Eos # (Auto) 0.1 K/mm3 (0-0.3) Baso # (Auto) 0.0 K/mm3 (0.0-0.1) Abs Immat Gran (auto) 0.01 K/mm3 (0.00-0.031) Absolute Neuts (auto) 4.0 K/mm3 (1.3-6.7) Absolute Nucleated RBC 0.000 K/mm3 (0.0-0.012) Nucleated RBC % 0.0 % (0.0-0.2) ESR 12 mm/hr (0-20) PT INR Sodium 138 mmol/L (137-145) Potassium 4.2 mmol/L (3.4-5.0) Chloride 100 mmol/L (98-107) Carbon Dioxide 31 H mmol/L (22-30) Anion Gap 7 mmol/L (4-12) BUN 17 mg/dL (9-20) Creatinine 0.67 L mg/dL (0.7-1.3) Estim Creat Clear Calc 123 ml/min Estimated GFR > 60 (59 - ) Glucose 128 H mg/dL (65-110) POC Capillary Glucose Calcium 9.4 mg/dL (8.4-10.2) Magnesium Total Bilirubin 0.5 mg/dL (0.2-1.3) AST 30 U/L (17-59) ALT 30 U/L (6-50) Alkaline Phosphatase 102 U/L (38-126) C-Reactive Protein < 0.5 mg/dL (<1.0) Total Protein 7.0 g/dL (6.3-8.2) Albumin 3.9 g/dL (3.5-5.1) Urine Color Yellow (Yellow) Urine Appearance Clear (Clear) Urine pH 6.0 (5.0-9.0) Ur Specific [place] 1.027 (1.001-1.035) Urine Protein Trace mg/dL (Negative) Urine Glucose (UA) 3+ H mg/dL (Negative) Urine Ketones Negative mg/dL (Negative) Ur Blood (Man) 2+ H (Negative) Urine Nitrate Negative (Negative) Urine Bilirubin Negative (Negative) Urine Urobilinogen 1.0 mg/dL (<2.0) Leukocyte Esterase Rfl Negative DEACON/UL (Negative) Urine RBC 21-50 H /hpf (0-2) Urine WBC 0-5 /hpf (0-3) Ur Squamous Epith Cells None seen /hpf (Few) Urine Bacteria None seen /hpf Urine Casts 0-2 Urine Opiates Screen Negative (Negative) Urine Methadone Screen Negative (Negative) Ur Barbiturates Screen Negative (Negative) Ur Phencyclidine Scrn Negative (Negative) Ur Amphetamine Screen Negative (Negative) U Benzodiazepines Scrn Negative (Negative) Urine Cocaine Screen Negative (Negative) U Cannabinoids Screen Positive A (Negative) 07/16/24 07/16/24 07/16/24 06:06 08:35 11:42 WBC 6.7 K/mm3 (4.5-10.0) RBC 5.08 M/mm3 (4.6-6.20) Hgb 15.3 g/dL (14.0-18.0) Hct 47.0 % (42.0-52.0) MCV 92.5 fl (80-100) MCH 30.1 pg (26-34) MCHC 32.6 g/dl (32-36) RDW 12.1 % (11.5-14.5) Plt Count 153 k/mm3 (150-375) MPV 9.1 fl (7.4-10.4) Immature Gran % (Auto) 0.4 % (0-0.5) Neut % (Auto) 66.4 % (45.5-73.1) Lymph % (Auto) 24.8 % (18.3-44.2) [place] % (Auto) 7.0 % (2.6-8.5) Eos % (Auto) 1.0 % (0-4.4) Baso % (Auto) 0.4 % (0.2-1.2) Lymph # (Auto) 1.66 K/mm3 (0.9-3.2) [place] # (Auto) 0.5 K/mm3 (0.1-0.6) Eos # (Auto) 0.1 K/mm3 (0-0.3) Baso # (Auto) 0.0 K/mm3 (0.0-0.1) Abs Immat Gran (auto) 0.03 K/mm3 (0.00-0.031) Absolute Neuts (auto) 4.4 K/mm3 (1.3-6.7) Absolute Nucleated RBC 0.000 K/mm3 (0.0-0.012) Nucleated RBC % 0.0 % (0.0-0.2) ESR PT 13.2 Seconds (11.1-14.7) INR 1.0 Sodium 138 mmol/L (137-145) Potassium 4.2 mmol/L (3.4-5.0) Chloride 101 mmol/L (98-107) Carbon Dioxide 31 H mmol/L (22-30) Anion Gap 6 mmol/L (4-12) BUN 15 mg/dL (9-20) Creatinine 0.68 L mg/dL (0.7-1.3) Estim Creat Clear Calc 121 ml/min Estimated GFR > 60 (59 - ) Glucose 107 mg/dL (65-110) POC Capillary Glucose 124 H mg/dl 109 H mg/dl (65-105) (65-105) Calcium 9.5 mg/dL (8.4-10.2) Magnesium 1.5 L mg/dL (1.6-2.3) Total Bilirubin AST ALT Alkaline Phosphatase C-Reactive Protein Total Protein Albumin Urine Color Urine Appearance Urine pH Ur Specific [place] Urine Protein Urine Glucose (UA) Urine Ketones Ur Blood (Man) Urine Nitrate Urine Bilirubin Urine Urobilinogen Leukocyte Esterase Rfl Urine RBC Urine WBC Ur Squamous Epith Cells Urine Bacteria Urine Casts Urine Opiates Screen Urine Methadone Screen Ur Barbiturates Screen Ur Phencyclidine Scrn Ur Amphetamine Screen U Benzodiazepines Scrn Urine Cocaine Screen U Cannabinoids Screen 07/16/24 14:22 WBC RBC Hgb Hct MCV MCH MCHC RDW Plt Count MPV Immature Gran % (Auto) Neut % (Auto) Lymph % (Auto) [place] % (Auto) Eos % (Auto) Baso % (Auto) Lymph # (Auto) [place] # (Auto) Eos # (Auto) Baso # (Auto) Abs Immat Gran (auto) Absolute Neuts (auto) Absolute Nucleated RBC Nucleated RBC % ESR PT INR Sodium Potassium Chloride Carbon Dioxide Anion Gap BUN Creatinine Estim Creat Clear Calc Estimated GFR Glucose POC Capillary Glucose 94 mg/dl (65-105) Calcium Magnesium Total Bilirubin AST ALT Alkaline Phosphatase C-Reactive Protein Total Protein Albumin Urine Color Urine Appearance Urine pH Ur Specific [place] Urine Protein Urine Glucose (UA) Urine Ketones Ur Blood (Man) Urine Nitrate Urine Bilirubin Urine Urobilinogen Leukocyte Esterase Rfl Urine RBC Urine WBC Ur Squamous Epith Cells Urine Bacteria Urine Casts Urine Opiates Screen Urine Methadone Screen Ur Barbiturates Screen Ur Phencyclidine Scrn Ur Amphetamine Screen U Benzodiazepines Scrn Urine Cocaine Screen U Cannabinoids Screen Patient hx anesthesia problems: none Family hx anesthesia problems: none Results Review: All pre-operative results and documents have been reviewed as part of the pre-operative evaluation. [facility] Past Medical History Medical History Dementia Amputation toe Burn erythema of left lower leg Left leg swelling Gangrene of right foot Smoking Bacteremia due to Streptococcus pneumoniae (06/2021) With septic left knee and anterior chest abscess. History of MRSA infection Polysubstance abuse Including methamphetamines and marijuana. Diabetic peripheral neuropathy Type 2 diabetes mellitus Hemoglobin A1c was 6.1% on 08/20/2021. Obesity Hypercholesterolemia Tobacco dependence Amphetamine abuse Patient is vague as to how often he uses. Surgical History Surgical History History of incision and drainage (10/04/20) -Complex incision and drainage of right diabetic foot ulcer per Dr. Zhao on 10/04/2020. -Incision and drainage of complicated sternal abscess on 06/26/[address] Ramirez. -Incision and drainage of left knee joint and debridement of right foot 1st ray wound on 06/28/[address] Alvarez. - Extensive incision and drainage of an anterior chest abscess at [facility]. History of carpal tunnel release (~04/07/21) Left-sided per Dr. Escobedo. History of colonoscopy (~10/2008) Negative aside from internal hemorrhoidal tissue per Dr. Damico. Status post debridement (~12/21/19) Excisional debridement of skin, subcutaneous tissue, and muscle of a 4 cm2 ulcer of the plantar surface of the right foot with removal foreign body under fluoroscopy per Dr. Raymundo. Family History Family History Father Hypertension Cerebrovascular accident Other Carcinoma of colon Diabetes mellitus Social History Social History Social History: Surrogate decision maker: Maxwell Webster, spouse. Code status: Full code. Smoking packs per day: 1 Smoking cigarettes per day: 20.0 Years smoked: 20 Smoking pack-years: 20.00 Smoking status: Former smoker Tobacco type: cigarettes Second hand tobacco smoke exposure: No Alcohol intake: former Drinks per week: 5 Alcohol use details: Drinks several alcoholic beverages a month. Substance use: former Substance use type: marijuana and methamphetamine Other substance usage details: Previous history of methamphetamine use. Last use: 2019 Living arrangements: with family Additional living arrangements comments: Lives in [place] with his spouse. Occupation/Education: unemployed Additional occupation/education comments: Unemployed. Spiritual care concerns: No Anes - Eval Final PreProcedure Day of Procedure 07/16/24 14:29 Patient weight: overweight Heart: regular rate and rhythm Lungs: clear to auscultation Airway: Mallampati scale class II Neurological: confused Last oral intake: >/= 8 hours ASA classification: III Emergent: no Anesthetic plan: proceed Anesthesia type and monitoring: general GIVS and standard monitoring Results Review: All pre-operative results and documents have been reviewed as part of the pre-operative evaluation. Informed Consent: The patient's anesthetic plan and its attendant risks and benefits were discussed with the patient/family/POA. Questions were solicited and answers provided to the satisfaction of the patient/family/POA.
--- NOTE | 2024-07-16 14:52 | P.CONS_ITS ---
Assessment and Plan Assessment and plan (1) Diabetic ulcer of right foot associated with diabetes mellitus due to underlying condition: Qualifiers: Diabetic foot ulcer location: toe Non-pressure ulcer stage: with fat layer exposed Qualified Code(s): E08.621 - Diabetes mellitus due to underlying condition with foot ulcer; L97.512 - Non-pressure chronic ulcer of other part of right foot with fat layer exposed Code(s): E08.621 - Diabetes mellitus due to underlying condition with foot ulcer; L97.519 - Non-pressure chronic ulcer of other part of right foot with unspecified severity Status: Acute Assessment and Plan: Patient appears to have a chronic pretty much closed diabetic wound the tip of the right 3rd toe. There is no cellulitis at this time. Chronic changes of prior inflammation is noted. Underlying subclinical chronic osteomyelitis of the tip of the toe may be present on x-ray. Presently there is no clinical suspicion of ongoing cellulitis and osteomyelitis requiring antibiotics or even surgery to amputate the right 3rd toe. Patient was instructed to wear specialized fitted shoes to avoid developing further wounds on his right foot and toes. No surgical management is needed. HPI Data of Consult Date/Time: 07/16/24 14:52 Requesting Physician: Christine Mendez MD Primary Care Provider: Miguelito FranksPatricia Consult Narrative Reason for consult: Possible osteomyelitis of the right 3rd toe Narrative: Bob Webster II is a 58 year old male there was a diabetic and was admitted to the hospital with episodes of hematuria and reports of purulent drainage from the tip of his right 3rd toe. Patient has had diabetic wounds on his feet before his already had a right great toe amputation as well as a partial amputation of the right 2nd toe. Apparently the patient's family had been trimming the toenail on the tip of the right 3rd toe and noticed some pus draining from the tip of the toe. X-ray of the right foot in the emergency room showed changes suggestive of possible osteomyelitis tip of the toe. Patient was admitted to the hospital for further workup of his hematuria as well as the diagnosis of possible osteomyelitis of the right 3rd toe. Review of Systems 2 Review of Systems: The remainder of the review of systems to include constitutional, HEENT, cardiovascular, respiratory, GI, , integumentary, musculoskeletal, endocrine, immunologic, hematologic, psychiatric, and neurologic are all negative except for which is mentioned above in the HPI. [facility] Past Medical History Medical History Dementia Amputation toe Burn erythema of left lower leg Left leg swelling Gangrene of right foot Smoking Bacteremia due to Streptococcus pneumoniae (06/2021) With septic left knee and anterior chest abscess. History of MRSA infection Polysubstance abuse Including methamphetamines and marijuana. Diabetic peripheral neuropathy Type 2 diabetes mellitus Hemoglobin A1c was 6.1% on 08/20/2021. Obesity Hypercholesterolemia Tobacco dependence Amphetamine abuse Patient is vague as to how often he uses. Surgical History Surgical History History of incision and drainage (10/04/20) -Complex incision and drainage of right diabetic foot ulcer per Dr. Zhao on 10/04/2020. -Incision and drainage of complicated sternal abscess on 06/26/[address] Ramierz. -Incision and drainage of left knee joint and debridement of right foot 1st ray wound on 06/28/[address] Alvarez. - Extensive incision and drainage of an anterior chest abscess at [facility]. History of carpal tunnel release (~09/07/20) Left-sided per Dr. Escobedo. History of colonoscopy (~10/2008) Negative aside from internal hemorrhoidal tissue per Dr. Damico. Status post debridement (~12/21/19) Excisional debridement of skin, subcutaneous tissue, and muscle of a 4 cm2 ulcer of the plantar surface of the right foot with removal foreign body under fluoroscopy per Dr. Raymundo. Family History Family History Father Hypertension Cerebrovascular accident Other Carcinoma of colon Diabetes mellitus Social History Social History Social History: Surrogate decision maker: Maxwell Webster, spouse. Code status: Full code. Smoking packs per day: 1 Smoking cigarettes per day: 20.0 Years smoked: 20 Smoking pack-years: 20.00 Smoking status: Former smoker Tobacco type: cigarettes Second hand tobacco smoke exposure: No Alcohol intake: former Drinks per week: 5 Alcohol use details: Drinks several alcoholic beverages a month. Substance use: former Substance use type: marijuana and methamphetamine Other substance usage details: Previous history of methamphetamine use. Last use: 2019 Living arrangements: with family Additional living arrangements comments: Lives in [place] with his spouse. Occupation/Education: unemployed Additional occupation/education comments: Unemployed. Spiritual care concerns: No Meds Home Medications and Allergies Home Medications ?Medication ?Instructions ?Recorded ?Confirmed ?Type metformin 500 mg tablet 500 mg PO BID #60 tabs 04/20/21 07/16/24 Rx amitriptyline 25 mg tablet 25 mg PO QHS 05/28/24 07/16/24 History aripiprazole 10 mg tablet 10 mg PO DAILY 05/28/24 07/16/24 History atorvastatin 40 mg tablet 40 mg PO DAILY 05/28/24 07/16/24 History duloxetine 30 mg capsule,delayed 30 mg PO DAILY 05/28/24 07/16/24 History release empagliflozin 25 mg tablet 25 mg PO DAILY 05/28/24 07/16/24 History (Jardiance) metoprolol tartrate 25 mg tablet 25 mg PO BID 05/28/24 07/16/24 History docusate sodium 100 mg capsule 100 mg PO DAILY 07/16/24 07/16/24 History (Colace) Allergies Allergy/AdvReac Type Severity Reaction Status Date / Time vancomycin AdvReac Other Verified 07/16/24 14:38 Vital Signs Vital Signs - 24 hr 07/15/24 19:05 07/15/24 21:47 07/16/24 01:00 Temperature 36.4 C Pulse Rate 64 60 61 Respiratory Rate 20 17 17 Blood Pressure 104/90 119/70 122/72 Pulse Oximetry 98 98 99 Oxygen Delivery Room Air 07/16/24 01:26 07/16/24 05:25 07/16/24 08:00 Temperature 36.6 C 36.4 C Pulse Rate 60 53 L Respiratory Rate 18 16 Blood Pressure 129/75 123/74 Pulse Oximetry 99 98 Oxygen Delivery Room Air 07/16/24 10:45 07/16/24 14:00 07/16/24 14:15 Temperature 35.6 C L 36.7 C Pulse Rate 54 L 56 L Respiratory Rate 16 16 Blood Pressure 109/63 126/64 Pulse Oximetry 100 100 Oxygen Delivery Room Air Room Air Exam 2 Const: General: comfortable and no acute distress HENMT: Ears: TM's normal bilaterally Face/Nose/Sinus: Normal nares present Mouth: Yes moist mucous membranes Eyes: General: appearance normal, both eyes and all related structures S clera: sclerae normal Pupils: Equal, round and reactive pupils present E OM: EOMs intact bilaterally Neck: Neck: supple and no JVD Resp: Effort & Inspection: normal respiratory effort Auscultation: clear to auscultation bilaterally Cardio: Rate: regular rate Rhythm: regular rhythm GI: GI Palp: Yes Soft to palpation, No Firmness to palpation present (GI), No Tenderness to palpation present (GI), No Guarding due to palpation present (GI) and No Hernia present Skin: General skin exam: normal color and no rashes or lesions noted Neuro: Speech: normal speech Sensory Exam: normal sensation Extrem: Other: The right foot is warm. The patient is status post amputation of the right great toe. Also partial amputation distal part of the right 2nd toe. On the 3rd toe at the tip there is a dry eschar partial nail noted. There is no purulent drainage or any infection at this time. There is some chronic thickening at the tip of the toe consistent with prior inflammation and pop possibly even chronic osteomyelitis. There is no bone exposed at the tip of the 3rd toe. Psych: Affect: normal affect Results Labs 07/16/24 06:06 07/16/24 06:06 Labs: Short CBC 07/15/24 07/16/24 Range/Units 21:08 06:06 WBC 6.6 6.7 (4.5-10.0) K/mm3 Hgb 15.0 D 15.3 (14.0-18.0) g/dL Hct 44.9 47.0 (42.0-52.0) % Plt Count 153 153 (150-375) k/mm3 BMP 07/15/24 07/16/24 21:08 06:06 Sodium 138 138 Potassium 4.2 4.2 Chloride 100 101 Carbon Dioxide 31 H 31 H BUN 17 15 Creatinine 0.67 L 0.68 L Glucose 128 H 107 Calcium 9.4 9.5 Liver Function 07/15/24 Range/Units 21:08 Total Bilirubin 0.5 (0.2-1.3) mg/dL AST 30 (17-59) U/L ALT 30 (6-50) U/L Alkaline Phosphatase 102 (38-126) U/L Albumin 3.9 (3.5-5.1) g/dL Urine 07/15/24 Range/Units 20:44 Urine Color Yellow (Yellow) Urine Appearance Clear (Clear) Urine pH 6.0 (5.0-9.0) Ur Specific [place] 1.027 (1.001-1.035) Urine Protein Trace (Negative) mg/dL Urine Glucose (UA) 3+ H (Negative) mg/dL Imaging Radiologist's impression: XRay Report Signed Patient: Bob Webster II : 1965 MR#: [id number] Age: 58 Acct:[id number] Loc: [facility] ADM Date: 07/15/24Attending Dr: Ordering Physician: Zita Banks PA-C Date of Service: 07/15/24 Procedure(s): XR foot RT min 3V Accession Number(s): [id number] cc: Ambrocio, Miguelito CROFT; Zita Banks PA-C~ HISTORY: diabetic toe infection COMPARISON: 08/20/2021 TECHNIQUE: 3 views of the right foot were performed. FINDINGS: No acute fracture or dislocation is appreciated. Irregularity of the soft tissue of the medial aspect of the distal phalanx of the third toe, likely the site of clinical concern. The tuft of the distal phalanx demonstrates loss of the cortex and underlying bone destruction. Erosion of all 5 tarsal metatarsal joint spaces with obliteration of the normal anatomy. Interval transmetatarsal amputation of the great toe with partial amputation of the proximal phalanx of the second toe since prior imaging. Significant soft tissue swelling is detected within the total of clinical concern, as well as the forefoot. Ossification of the insertion of the Achilles tendon is noted, along with a large calcaneal spur. IMPRESSION: Findings within the distal phalanx of the third toe for which osteomyelitis is suspected. Reviewed, dictated and finalized at location A. CLE[employer] OPERATOR
[2024-07-16] MEDS: LIDOCAINE 2% GEL UROJET 10 ML PKG MUCOUS MEM (15:49)
--- NOTE | 2024-07-16 15:51 | W.PM.PROC2 ---
Procedure Note - Detailed Date of Procedure 07/16/24 Pre-op Diagnosis Osteomyelitis, hematuria Post-op Diagnosis Same Procedure Performed Flexible cystoscopy Surgeon Rivas Wlaler MD Anesthesia General Findings Moderate BPH Description of Procedure Patient is brought to the operative suite where he was prepped draped in routine sterile fashion while in dorsal lithotomy position after the uneventful induction of a general LMA anesthetic. Cystoscopy was undertaken with a 16 F flexible cystoscope. There was no urethral strictures. Prostate is moderately enlarged with a 2 cm prostatic urethra. This demonstrates lateral lobe enlargement with a significant median lobe. The bladder showed mild trabeculation. Bladder mucosa is normal. There was no intravesical foreign body or neoplasm. Bladder mucosa is without hyperemia. Fight the cystoscope was removed. I will start the patient on finasteride to help prevent episodes of recurrent hematuria in the distant future. Urine Output 600 Drains No Packing No Pathology None sent Complications No immediate complications
[2024-07-16 15:58] LABS: Glucose Point of Care 99 mg/dl (65-105)
--- NOTE | 2024-07-16 17:01 | PC.NURSE ---
Returned to room from OR per hospital bed.
[2024-07-16 18:23] LABS: Glucose Point of Care 177 mg/dl (65-105)
[2024-07-16] MEDS: INSULIN ASPART (*BKC) 100 UNITS/ML SUB-Q (21:08)
[2024-07-16 23:08] LABS: Glucose Point of Care 202 mg/dl (65-105)
[2024-07-17] MEDS: LINEZOLID 600 MG/300 ML 600 MG/300 ML SOLN 300 MG IVPB (01:35)
[2024-07-17] MEDS: CEFEPIME 2 GM/NS 50 ML 2 GM/50 ML BAG IVPB (05:19)
[2024-07-17] MEDS: metroNIDAZOLE 500 MG/ISO 100ML 500 MG/100 ML BAG 100 MG IVPB (05:58)
[2024-07-17 06:00] VITALS: BP 142/83; PULSE 73; RESP 18; TEMP 36.7; O2SAT 98
[2024-07-17 07:52] LABS: Glucose Point of Care 152 mg/dl (65-105)
[2024-07-17] MEDS: DOCUSATE SODIUM 100 MG CAPSULE PO (08:51)
[2024-07-17] MEDS: metFORMIN HCL 500 MG TABLET PO (08:51)
[2024-07-17] MEDS: ATORVASTATIN 40 MG TABLET PO (08:51)
[2024-07-17] MEDS: FINASTERIDE 5 MG TABLET PO (08:51)
[2024-07-17] MEDS: EMPAGLIFLOZIN 25 MG TABLET PO (08:51)
[2024-07-17] MEDS: METOPROLOL TARTRATE 25 MG TABLET PO (08:51)
[2024-07-17] MEDS: ARIPiprazole 10 MG TABLET PO (08:51)
[2024-07-17 11:38] LABS: Glucose Point of Care 170 mg/dl (65-105)
--- NOTE | 2024-07-17 13:02 | PM.IMPN ---
Progress Note: A&P Assessment and Plan (1) Osteomyelitis of toe of right foot: Code(s): M86.9 - Osteomyelitis, unspecified Status: Acute (2) Diabetic ulcer of left foot: Qualifiers: Diabetic foot ulcer location: midfoot Diabetes mellitus type: type 2 Non-pressure ulcer stage: limited to breakdown of skin Qualified Code(s): E11.621 - Type 2 diabetes mellitus with foot ulcer; L97.421 - Non-pressure chronic ulcer of left heel and midfoot limited to breakdown of skin Code(s): E11.621 - Type 2 diabetes mellitus with foot ulcer; L97.529 - Non-pressure chronic ulcer of other part of left foot with unspecified severity Status: Chronic (3) Type 2 diabetes mellitus: Code(s): E11.9 - Type 2 diabetes mellitus without complications Status: Acute (4) Gross hematuria: Code(s): R31.0 - Gross hematuria Status: Acute Plan Gross hematuria Urinalysis shows hematuria CT abdomen pelvis shows nonobstructing kidney stone 2.5 mL with a red kidney, exophytic focus of the soft-tissue attenuation within the left kidney. Pending renal ultrasound Consult urologist for evaluation treatment Patient underwent cystoscope, started finasteride Currently patient has no bloody urine. Diabetic ulcer and osteomyelitis of the right foot 3rd toe Patient has chronic diabetic ulcer of the 3rd toe of the right foot, the wound is dry, no purulent discharge Further x-rays suggest osteomyelitis of the distal phalanx of the 3rd toe Received Zyvox, cefepime and Flagyl IV in the ED Consult general surgeon for evaluation treatment No cellulitis general surgeon evaluates patient, does not consider osteomyelitis. Discontinue antibiotics Bradycardia Pending EKG Hold metoprolol p.o. Hyperlipidemia Continue Lipitor 40 mg daily p.o. Type 2 diabetes hold metformin and Jardiance Start insulin sliding scale a.c. and q.h.s. Dementia Patient has the dementia, not oriented x3 Consult PT OT primary care coordinator for evaluation and assisting placement Patient is stable ready to be discharged home Subjective Date/time seen: 07/17/24 13:02 Interval history: I saw examined patient today, patient feels comfortable, denies abdomen pain, dysuria, chest pain shortness, patient is afebrile blood pressure stable, Exam Narrative: GENERAL: Pleasant, in no acute distress. Well-nourished. - EYES: EOMI. Anicteric. - HENT: Moist mucous membranes. - LUNGS: Clear to auscultation bilaterally, no wheezing, rhonchi, or rales. - CARDIOVASCULAR: Regular rate and rhythm. No murmur. No JVD. - ABDOMEN: Soft, non-tender and non-distended. No palpable masses. - EXTREMITIES: No edema. Peripheral pulses 2+. Non-tender. Right 1st toe amputation, nonhealing ulcer of right 3rd toe, the wound is dry - NEUROLOGIC: No focal neurological deficits. CN II-XII grossly intact. - PSYCHIATRIC: Awake, Alert and not oriented x 3. Appropriate mood and affect. - SKIN: No rashes or lesions. Warm. - LYMPH: No cervical lymphadenopathy. Objective Data Vital Signs Vital Signs: Vital Signs - 24 hr 07/16/24 14:00 07/16/24 14:15 07/16/24 15:53 Temperature 96.1 F L 98.1 F 99.1 F Pulse Rate 54 L 56 L 62 Respiratory Rate 16 16 10 L Blood Pressure 109/63 126/64 85/54 L Pulse Oximetry 100 100 99 Oxygen Delivery Room Air Simple Face Mask Oxygen Flow Rate 6 07/16/24 16:05 07/16/24 16:10 07/16/24 16:20 Temperature Pulse Rate 57 L 58 L Respiratory Rate 16 12 Blood Pressure 98/60 L 111/64 Pulse Oximetry 99 95 Oxygen Delivery Simple Face Mask Room Air Room Air Oxygen Flow Rate 07/16/24 16:35 07/16/24 16:50 07/16/24 20:21 Temperature 98.2 F Pulse Rate 59 L 58 L 69 Respiratory Rate 12 12 16 Blood Pressure 105/66 116/68 131/74 Pulse Oximetry 95 95 97 Oxygen Delivery Room Air Room Air Oxygen Flow Rate 07/17/24 06:00 07/17/24 08:00 07/17/24 10:42 Temperature 98.1 F Pulse Rate 73 Respiratory Rate 18 Blood Pressure 142/83 H Pulse Oximetry 98 Oxygen Delivery Room Air Room Air Oxygen Flow Rate Intake/Output Intake/Output: Intake & Output 07/14/24 07/15/24 07/16/24 07/17/24 23:59 23:59 23:59 23:59 Intake Total 50 1400 995 Output Total 1800 Balance 50 -400 995 Meds/Results Medications: Active Medications Generic Name Dose Route Start Last Admin Trade Name Freq PRN Reason Stop Dose Admin Acetaminophen 500 mg 07/16/24 01:06 Acetaminophen 500 Mg Tablet PO Q4H PRN Mild Pain (1-3) or Fever Aripiprazole 10 mg 07/16/24 09:00 07/17/24 08:51 Aripiprazole 10 Mg Tablet PO 10 mg DAILY LINO Administration Atorvastatin Calcium 40 mg 07/16/24 09:00 07/17/24 08:51 Atorvastatin 40 Mg Tablet PO 40 mg DAILY LINO Administration Dextrose 12.5 gm 07/16/24 08:16 Dextrose 50% 25 Gm/50 Ml Syringe IV PUSH PRN PRN Hypoglycemia Protocol Docusate Sodium 100 mg 07/16/24 09:00 07/17/24 08:51 Docusate Sodium 100 Mg Capsule PO 100 mg DAILY LINO Administration Empagliflozin 25 mg 07/16/24 09:00 07/17/24 08:51 Empagliflozin 25 Mg Tablet PO 25 mg DAILY LINO Administration Finasteride 5 mg 07/17/24 09:00 07/17/24 08:51 Finasteride 5 Mg Tablet PO 5 mg QAM LINO Administration Glucagon 1 mg 07/16/24 08:16 Glucagon For Inj 1 Mg Vial IM PRN PRN Hypoglycemia Protocol Glucose 15 gm 07/16/24 08:16 Glucose Oral Gel 15 Gm Of Glucse In 37.5 Gm Tube PO PRN PRN Hypoglycemia Protocol Cefepime HCl 2 gm in 50 mls @ 100 mls/hr 07/16/24 06:00 07/17/24 05:49 Maxipime 2 Gm/Ns 50 Ml IVPB Infused Q8HR LINO Infusion Metronidazole 500 mg in 100 mls @ 100 mls/hr 07/16/24 06:00 07/17/24 06:58 Flagyl 500 Mg/Iso Soln 100 Ml IVPB Infused Q8HR LINO Infusion Linezolid 600 mg in 300 mls @ 300 mls/hr 07/16/24 14:00 07/17/24 02:35 Zyvox IVPB Infused Q12H LINO Infusion Dextrose 1,000 mls @ 100 mls/hr 07/16/24 08:16 Dextrose 5% 1,000 Ml IVPB PRN PRN Hypoglycemia Protocol Insulin Aspart 3 - 6 units 07/16/24 12:00 07/17/24 08:23 Insulin Aspart (*Bkc) 100 Units/Ml SUB-Q Not Given TIDWM [facility] Protocol Insulin Aspart 1 - 3 units 07/16/24 21:00 07/16/24 21:08 Insulin Aspart (*Bkc) 100 Units/Ml SUB-Q 1 units HS LINO Administration Protocol Ketorolac Tromethamine 30 mg 07/16/24 01:07 Ketorolac 30 Mg/Ml Vial (*Bkc) IV PUSH Q6H PRN Pain Rated 4-6 Metformin HCl 500 mg 07/16/24 09:00 07/17/24 08:51 Metformin Hcl 500 Mg Tablet PO 500 mg BID LINO Administration Metoprolol Tartrate 25 mg 07/16/24 09:00 07/17/24 08:51 Metoprolol Tartrate 25 Mg Tablet PO 25 mg BID LINO Administration Morphine Sulfate 2 mg 07/16/24 01:06 Morphine Sulfate (*Crx) 2 Mg/Ml Inj IV PUSH Q4H PRN Pain Rated 7-10 Radiology Results: ITS Impressions Foot X-Ray 07/15/24 21:42 IMPRESSION: Findings within the distal phalanx of the third toe for which osteomyelitis is suspected. Abdomen/Pelvis CT 07/15/24 23:03 IMPRESSION: Nonobstructing 2.5 mm calculus within the right kidney. Exophytic focus of soft tissue attenuation within the left kidney, as detailed above. Nonemergent focused ultrasound examination may be performed for further characterization. Cholelithiasis without cholecystitis. Renal Ultrasound 07/16/24 08:28 IMPRESSION: 1. 2.1 cm cyst in the left kidney correlating with the CT abnormality. Labs Labs: Laboratory Results - last 24 hr 07/16/24 07/16/24 07/16/24 14:22 15:56 18:17 POC Capillary Glucose 94 99 177 H 07/16/24 07/17/24 07/17/24 20:33 07:48 11:35 POC Capillary Glucose 202 H 152 H 170 H
--- NOTE | 2024-07-17 13:08 | P.DS_ITS ---
DS: Admitting Diagnosis Discharge Date 07/17 Admitting Diagnosis (1) Osteomyelitis of toe of right foot: Code(s): M86.9 - Osteomyelitis, unspecified Status: Acute (2) Diabetic ulcer of left foot: Qualifiers: Diabetic foot ulcer location: midfoot Diabetes mellitus type: type 2 Non-pressure ulcer stage: limited to breakdown of skin Qualified Code(s): E11.621 - Type 2 diabetes mellitus with foot ulcer; L97.421 - Non-pressure chronic ulcer of left heel and midfoot limited to breakdown of skin Code(s): E11.621 - Type 2 diabetes mellitus with foot ulcer; L97.529 - Non-pressure chronic ulcer of other part of left foot with unspecified severity Status: Chronic (3) Type 2 diabetes mellitus: Code(s): E11.9 - Type 2 diabetes mellitus without complications Status: Acute (4) Gross hematuria: Code(s): R31.0 - Gross hematuria Status: Acute DS: Discharge Diagnosis Discharge Diagnosis (1) Osteomyelitis of toe of right foot: Code(s): M86.9 - Osteomyelitis, unspecified Status: Acute (2) Diabetic ulcer of left foot: Qualifiers: Diabetic foot ulcer location: midfoot Diabetes mellitus type: type 2 Non-pressure ulcer stage: limited to breakdown of skin Qualified Code(s): E11.621 - Type 2 diabetes mellitus with foot ulcer; L97.421 - Non-pressure chronic ulcer of left heel and midfoot limited to breakdown of skin Code(s): E11.621 - Type 2 diabetes mellitus with foot ulcer; L97.529 - Non-pressure chronic ulcer of other part of left foot with unspecified severity Status: Chronic (3) Type 2 diabetes mellitus: Code(s): E11.9 - Type 2 diabetes mellitus without complications Status: Acute (4) Gross hematuria: Code(s): R31.0 - Gross hematuria Status: Acute DS: Summary Hospital Course Hospital Course: 58-year-old man with history of type 2 diabetes, hyperlipidemia, anxiety, profound dementia present ED with a chief complaint of hematuria and 3rd toe nonhealing wound. Patient has a profound dementia, he is unable to provide history. History is taken from ER physician. Patient came from home, patient is taking care by patient's . Patient's noticed patient had 2 episode gross hematuria in past 2 days. And patient also had a nonhealing ulcer of right 3rd toe. There patient was brought to ED for evaluation treatment. When I saw exam patient, patient did not have obvious distress, patient is alert, but not oriented x3. Patient cannot recall what happened to him today and why he was brought to ED for evaluation treatment. He denies headache, chest pain, shortness breast, abdomen pain, nausea vomiting diarrhea dysuria. But patient can not feel the pain of 3rd toe. I am not sure if patient understands my questions patient has a profound dementia. Upon arrival to ED, patient afebrile, blood pressure stable, bradycardia 53, CBC unremarkable, chemistry showed bicarbonate 31, magnesium 1.5, urinalysis showed hematuria 21-50, x-ray showed osteomyelitis of distal phalanx of 3rd toe. CT abdomen pelvis shows nonobstructing kidney stone 2.5 mL with a red kidney, exophytic focus of the soft-tissue attenuation within the left kidney. The following med issues have been addressed during hospitalization Gross hematuria Urinalysis shows hematuria CT abdomen pelvis shows nonobstructing kidney stone 2.5 mL with a red kidney, exophytic focus of the soft-tissue attenuation within the left kidney. Pending renal ultrasound Consult urologist for evaluation treatment Patient underwent cystoscope, patient is found have a BPH, started finasteride Currently patient has no bloody urine. Diabetic ulcer and osteomyelitis of the right foot 3rd toe Patient has chronic diabetic ulcer of the 3rd toe of the right foot, the wound is dry, no purulent discharge Further x-rays suggest osteomyelitis of the distal phalanx of the 3rd toe Received Zyvox, cefepime and Flagyl IV in the ED Consult general surgeon for evaluation treatment No cellulitis general surgeon evaluates patient, does not consider osteomyelitis. Discontinue antibiotics Bradycardia Pending EKG Hold metoprolol p.o. Hyperlipidemia Continue Lipitor 40 mg daily p.o. Type 2 diabetes hold metformin and Jardiance Start insulin sliding scale a.c. and q.h.s. Dementia Patient has the dementia, not oriented x3 Consult PT OT child care specialist for evaluation and assisting placement Patient is stable ready to be discharged home Time Spent with Patient Time attestation: Total time spent providing and/or coordinating discharge services: Exam Narrative: GENERAL: Pleasant, in no acute distress. Well-nourished. - EYES: EOMI. Anicteric. - HENT: Moist mucous membranes. - LUNGS: Clear to auscultation bilateral ly, no wheezing, rhonchi, or rales. - CARDIOVASCULAR: Regular rate and rhyth m. No murmur. No JVD. - ABDOMEN: Soft, non-tender and non-dist ended. No palpable masses. - EXTREMITIES: No edema. Peripheral puls es 2+. Non-tender. Right 1st toe ampu tation, nonhealing ulcer of right 3rd toe, the wound is dry - NEUROLOGIC: No focal neurological defi cits. CN II-XII grossly intact. - PSYCHIATRIC: Awake, Alert and not orie nted x 3. Appropriate mood and affect. - SKIN: No rashes or lesions. Warm. - LYMPH: No cervical lymphadenopathy. DS: Data Data Completed and Pending Labs on day of discharge: Labs from last 24 hours 07/17/24 07/17/24 07/16/24 11:35 07:48 20:33 POC Capillary Glucose 170 H 152 H 202 H 07/16/24 07/16/24 07/16/24 18:17 15:56 14:22 POC Capillary Glucose 177 H 99 94 Preliminary micro results at discharge 07/15/24 22:42 Blood Culture - Preliminary Blood 07/15/24 22:42 Blood Culture - Preliminary Blood Discharge Plan Discharge Attending physician on discharge: Parveen Gaytan Consulting providers: Owen Larose; Rivas Waller Discharging Clinician: Parveen Gaytan Anticipated Discharge Date/Time: 07/17/24 13:06 Patient Disposition: Home, Self-Care Activity: as tolerated Diet: as tolerated and regular Patient Instructions: Antibiotic Form Patient Language: Singaporean Stand Alone Forms: General Discharge Information Follow-up/Referrals: Tiny,Patricia Farley [Primary Care Provider] - (See primary care doctor in 1 week) Rivas Waller MD [Physician] - (See urologist at scheduled appointment) Discharge Medications: New finasteride [Proscar] 5 mg Tablet 5 mg PO QAM Qty: 60 0RF Continued Jardiance 25 mg tablet 25 mg PO DAILY amitriptyline 25 mg tablet 25 mg PO QHS atorvastatin 40 mg tablet 40 mg PO DAILY aripiprazole 10 mg tablet 10 mg PO DAILY duloxetine 30 mg capsule,delayed release(DR/EC) 30 mg PO DAILY metformin 500 mg tablet 500 mg PO BID Qty: 60 0RF docusate sodium [Colace] 100 mg capsule 100 mg PO DAILY Discontinued metoprolol tartrate 25 mg tablet 25 mg PO BID Date of admission: 07/16/24 09:13 Primary Care Provider: Ambrocio,Miguelito Admitting Provider: Christine Mendez Attending physician on admission: Christine Mendez Condition: Stable
[2024-07-17] MEDS: INFLUENZA TRIVALENT VACCINE 45 MCG/0.5 ML SYRINGE IM (13:35)
== END 2024-07-17 13:41 | disposition home or self-care (01) | DRG 638 ==
LOC: ANHED 07-16 00:20 → ANH3MEDSUR 07-16 00:55
PROVIDERS: Emergency Medicine; Urology; Admitting Provider General Practice; Emergency Provider Physician Assistant; PCP Internal Medicine Infectious Disease; Visit Provider Hospitalist
PROC: 0TJB8ZZ Inspection of Bladder, Via Natural or Artificial Opening Endoscopic (ICD-10-PCS; CPT 52000; principal; 2024-07-16 16:30)
DX: E11.69 Type 2 diabetes mellitus with other specified complication (principal); L97.421 Non-pressure chronic ulcer of left heel and midfoot limited to breakdown of skin; M86.671 Other chronic osteomyelitis, right ankle and foot; E11.621 Type 2 diabetes mellitus with foot ulcer; L97.529 Non-pressure chronic ulcer of other part of left foot with unspecified severity; N20.0 Calculus of kidney; R31.0 Gross hematuria; N40.0 Benign prostatic hyperplasia without lower urinary tract symptoms; E11.42 Type 2 diabetes mellitus with diabetic polyneuropathy; Z23 Encounter for immunization; R00.1 Bradycardia, unspecified; E78.5 Hyperlipidemia, unspecified; F03.90 Unspecified dementia, unspecified severity, without behavioral disturbance, psychotic disturbance, mood disturbance, and anxiety; F41.9 Anxiety disorder, unspecified; Z87.891 Personal history of nicotine dependence; Z79.84 Long term (current) use of oral hypoglycemic drugs; Z89.411 Acquired absence of right great toe
CPT/HCPCS: 36415; 73630; 74177; 76775; 80048; 80053; 80307; 81001; 82948; 83735; 85025; 85610; 85652; 86140; 87040; 90471; 90656; 96365; 96367; 96375; 97161; 97165; 99212; 99285; A9270; G0008; G0378; G0463; J0692; J1100; J1815; J1836; J2003; J2020; J2405; J2704; J3010; J7120; Q9967

== ENCOUNTER 2024-08-15 01:39 | Emergency (ER) | payer MEDICARE, SELFPAY ==
[2024-08-15] VITALS (7 sets, daily range): BP systolic 100–144; BP diastolic 66–75; PULSE 81–124; RESP 17–20; TEMP 36.2–37; O2SAT 96–99
--- OUTSIDE RECORDS SUMMARY | 2024-08-15 01:43 | XMS_ITS | Referral Summary ---
Author Organization [facility] [employer] Address [address] [place] [address] Care Team Providers Care Rider Ticket Worker Name Role Phone Miguelito Albrecht MD Primary Care Provider Source Comments [facility] [employer],non-owned Affiliates and Associated Physician Practices is amultiple site organization consisting of ambulatory clinics and hospital sitesin [place], [place], [place] and [place]. This disclosure is being madepursuant to the Care Everywhere program and may not contain all information available regarding this patient. Last updated 18.[facility] [employer] Allergies No known active allergies Medications * [...] Date Smoking Tobacco: Every Day Cigarettes 1 41.3 Started: 04/27/1983 Smokeless Tobacco: Never Tobacco Cessation:Ready [...] Comments Blood Pressure 148/81 07/01/2019 12:26 PM STEEL HANGER Pulse 80 07/01/2019 12:26 PM STEEL [employer]ANG[employer] Temperature 36.2 C (97.1 F) 07/01/2019 12:26 PM STEEL [employer]ER Respiratory Rate 16 04/29/2019 4:12 AM STEEL HANGER Oxygen Saturation 98% 07/01/2019 12:26 PM STEEL HANGER Inhaled Oxygen Concentration 40% 04/27/2019 1:45 PM STEEL [employer]ER Weight 115.2 kg (254 lb) 07/01/2019 12:26 PM STEEL H[employer] Height 188 cm (6' 2 ) 07/01/2019 12:26 PM STEEL [employer] Body Mass Index 32.61 07/01/2019 12:26 PM STEEL [employer]ANGER Functional Status Functional Status Response Date of [...] PANEL (CALCIUM TOTAL) Routine 04/29/2019 5:22 AM STEEL HANGER Diabetic foot infection (HCC) HEMOGLOBIN A1C Routine 01/29/2019 6:21 AM CDT from Last 3 Months or Most Recently Relevant to Health Maintenance Results * (ABNORMAL) BASIC METABOLIC PANEL (CALCIUM TOTAL) (04/29/2019 5:22 AM STEEL HANGER) BUN 21 7 - 26 mg/dL 04/29/2019 [...] Unknown Venipuncture / Unknown 04/29/2019 5:22 AM STEEL HANGER 04/29/2019 5:27 AM [facility] Diana Aguila DO LAB - CHEMISTRY ORDERABLES [facility] [address] [place] [address] * (ABNORMAL) HEMOGLOBIN A1C (01/29/2019 6:21 AM CDT) Hemoglobin A1c 6.9(H) 4.4 - 6.3 % 01/29/2019 8:08 AM CDT [facility] Estimated Average Glucose 151 mg/dL 01/29/2019 8:08 AM CDT [facility] Comment: HbA1c Interpretation: Treatment target values recommended by ADA and other clinical organizations should be used to evaluate metabolic control in patients. Treatment Target Values: Normal : < 5.7% Pre-diabetes: 5.7-6.4% Diabetes: Equal to or greater than 6.5% Reference: [place] Diabetes Association Standards of Care in Diabetes -2014 In patients 70 years and older consider HbA1c target range of 7.0-7.5% Reference: Diabetes Mellitus in Older People: Position Statement on behalf of the International Association of Gerontology and Geriatrics (IAGG), the Diabetes Working Green Party for Older People (EDWPOP), and the International Task Force of Experts in Diabetes. Mehrdad Aleman, et al. J [place] [employer] Association. 2012 Test results diagnostic of diabetes should be repeated for confirmation. The Sebia Capillary 2 assay for the measurement of HbA1c is a National Glycohemoglobin Standardization Program (NGSP)certified method. Blood BLOOD SPECIMEN / Unknown Lab Venipuncture / Unknown 01/29/2019 6:21 AM CDT 01/29/2019 6:47 AM CDT Melisa Meyers MD LAB - CHEMISTRY [facility] Organization Address City/State/ZIP Co de Phone Number [address] [phone] from Last 3 Months or Most Recently [...] 5:44 PM 02/04/2019 6:59 PM Care Teams Rider Ticket Worker Relationship Specialty Start [place] [address] [place] [phone] PCP - General 01/28/19
--- OUTSIDE RECORDS SUMMARY | 2024-08-15 01:43 | XMS_ITS | Clinical Summary ---
Author Organization [facility] Address [address] [place] [address] Care Team Providers Care Dog Groomer Name Role Phone Miguelito Albrecht MD Primary Care Provider Source Comments [facility],non-owned Affiliates and Associated Physician Practices is amultiple site organization consisting of ambulatory clinics and hospital sitesin [place], [place], [place] and [place]. This disclosure is being madepursuant to the Care Everywhere program and may not contain all information available regarding this patient. Last updated 18.[facility] Allergies No known active allergies Medications * [...] Comments Blood Pressure 148/81 07/01/2019 12:26 PM [employer]GE DESIGN [employer]INE[employer] Pulse 80 07/01/2019 12:26 PM [employer]GE DESIGN [employer] Temperature 36.2 C (97.1 F) 07/01/2019 12:26 PM [employer] DESIGN ENGINEER Respiratory Rate 16 04/29/2019 4:12 AM BR[employer]GE DESIGN ENGINE[employer] Oxygen Saturation 98% 07/01/2019 12:26 PM [employer] DESIGN ENGINEER Inhaled Oxygen Concentration 40% 04/27/2019 1 :45 PM [employer] DESIGN ENGINE[employer] Weight 115.2 kg (254 lb) 07/01/2019 12:26 PM [employer] DESIGN ENGINE[employer] Height 188 cm (6' 2 ) 07/01/2019 12:26 PM [employer] DESIGN ENG[employer] Body Mass Index 32.61 07/01/2019 12:26 PM BR[employer]GE DESIGN ENGINEER Plan of Treatment Health Maintenance Due Date [...] 04/24/2019, 04/01/2019, Additional history exists COVID-19 VACCINE ( - season) 2024 INFLUENZA VACCINE (#1) 2024 05/05/2019 DEPRESSION SCREENING 06/03/2024 DIABETES - URINE PROTEIN SCREENING 06/03/2024 DTAP/TDAP/TD VACCINES (2 - Td or Tdap) 02/01/2026 02/02/2016 HIB VACCINE Aged Out No longer eligi ble based on patient's age to complete this topic HPV VACCINE Aged Out No longer eligi ble based on patient's age to complete this topic MENINGOCOCCAL (Group B) VACCINE SHARED DECISION-MAKING Aged Out No longer eligible based on patient's age to complete this topic MENINGOCOCCAL GROUPS A/C/Y/W VACCINE Aged Out No longer eligible based on patient's age to complete this topic Procedures Procedure Name Priority Date/Time Associated Diagnosis Comments BASIC METABOLIC PANEL (CALCIUM TOTAL) Routine 04/29/2019 5:22 AM BR[employer]GE DESIGN ENGINE[employer] Diabetic foot infection (HCC) HEMOGLOBIN A1C Routine 01/29/2019 6:21 AM CDT from Last 3 Months or Most Recently Relevant to Health Maintenance Results * (ABNORMAL) BASIC METABOLIC PANEL (CALCIUM TOTAL) (04/29/2019 5:22 AM BRIDGE DESIGN ENGINEER) BUN 21 7 - 26 mg/dL 04/29/2019 5:55 AM [facility] Creatinine 0.9 0.6 - 1.2 mg/dL 04/29/2019 5:55 AM [facility] Sodium 140 136 - 145 mmol/L 04/29/2019 5:55 AM [facility] Potassium 4.1 3.5 - 4.5 mmol/L 04/29/2019 5:55 AM [facility] Chloride 103 98 - 107 mmol/L 04/29/2019 5:55 AM [facility] CO2 29 22 - 29 mmol/L 04/29/2019 5:55 AM [facility] Glucose 151(H) 70 - 115 mg/dL 04/29/2019 5:55 AM [facility] Calcium 9.6 8.4 - 10.2 mg/dL 04/29/2019 5:55 AM [facility] Anion Gap 12 8 - 18 04/29/2019 5:55 AM [facility] BUN/Creatinine Ratio 23 7 - 23 04/29/2019 5:55 AM [facility] Osmolality Calculated 296 270 - 300 mOsm/kg 04/29/2019 5:55 AM [facility] eGFR >60 >60 mL/min/1.7 3 m2 04/29/2019 5:55 AM [facility] Blood BLOOD SPECIMEN / Unknown Venipuncture / Unknown 04/29/2019 5:22 AM [facility] 04/29/2019 5:27 AM [facility] Diana Aguila DO LAB - CHEMISTRY ORDERABLES Performing Organization Address City/State/[facility] Co de Phone Number [address] [phone] * (ABNORMAL) HEMOGLOBIN A1C (01/29/2019 6:21 AM CDT) Hemoglobin A1c 6.9(H) 4.4 - 6.3 % 01/29/2019 8:08 AM [facility] Estimated Average Glucose 151 mg/dL 01/29/2019 8:08 AM [facility] Comment: HbA1c Interpretation: Treatment target values recommended by ADA and other clinical organizations should be used to evaluate metabolic control in patients. Treatment Target Values: Normal : < 5.7% Pre-diabetes: 5.7-6.4% Diabetes: Equal to or greater than 6.5% Reference: [place] Diabetes [employer] Standards of Care in Diabetes -2014 In patients 70 years and older consider HbA1c target range of 7.0-7.5% Reference: Diabetes Mellitus in Older People: Position Statement on behalf of the International Association of Gerontology and Geriatrics (IAGG), the Diabetes Working [employer] Party for Older People (EDWPOP), and the International Task Force of Experts in Diabetes. Mehrdad Aleman et al. J [place] [employer]. 2012 Test results diagnostic of diabetes should be repeated for confirmation. The Sebia Capillary 2 assay for the measurement of HbA1c is a National Glycohemoglobin Standardization Program (NGSP)certified method. Blood BLOOD SPECIMEN / Unknown Lab Venipuncture / Unknown 01/29/2019 6:21 AM CDT 01/29/2019 6:47 AM CDT Melisa Meyers MD LAB - CHEMISTRY [facility] [place] Organization Address City/State/[facility] Co de Phone Number [address] [phone] from Last 3 Months or Most Recently [...] 5:44 PM 02/04/2019 6:59 PM Care Teams Dog Groomer Relationship Specialty Start Date End Date Miguelito Albrecht MD [address] [place], [place] [id number] PCP - General 01/28/19
--- OUTSIDE RECORDS SUMMARY | 2024-08-15 01:43 | XMS_ITS | Data Portability ---
Author Organization MD - [facility], Main Office Address [address] [place] [address] Care Team Providers Care Private Investigator Name Role Phone FOUZIA SMITH Primary Care Provider FOUZIA SMITH Referring Provider Assessment Encounter Date Assessment Date Assessment LastModified by Organization Details LastModified Time 01/07/2023 01/07/2023 This note is dictated and transcribed by [employer]. 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 Despite proofreading, typographical errors may occur. Not available 01/07/2023 14:44:36 04/08/2023 04/08/2023 This note is dictated and transcribed by [employer]. 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 Despite proofreading, typographical errors may occur. Not available 04/08/2023 11:47:55 04/17/2023 04/17/2023 This note is dictated and transcribed by [employer]. 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 Despite proofreading, typographical errors may occur. Not available 04/17/2023 17:14:27 12/26/2023 12/26/2023 This note is dictated and transcribed by [employer]. 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 Despite proofreading, typographical errors may occur. Occasional wrong-word or '[id number]-l-[id number]' substitutions may have occurred due to the [...] None recorded. Imaging None recorded. Medication Orders gentamicin 0.1 % topical cream 2023 024 [facility] [employer] [facility]49259, [address], [place], [place], [id number], 4 13:04:27 glimepiride 1 mg tablet 2022 023 [facility] [employer] [facility] #[id number], [address], [place], [place], [id number], 3 09:52:33 Patient TargetsNo targets recorded. Patient InstructionsNo instructions recorded. Reason for Referral None Reported. Results Created Date Observation Date Name Description Value Unit Range Abnormal Flag Note LastModifiedBy Organization Detail LastModifiedTime 01/11/2001/10/2023 COMPR EHENS JAGDISH METAB OLIC PANEL sodium 142 mmol/ L 137-14 5 Not Available [facility] (Lab) [address] [place], [address], 01/10/2023 10:03:46 01/11/20 23 01/10/2023 COMPR EHENS JAGDISH METAB OLIC PANEL potassium 4.8 mmol/ L 3.5-5. 1 Not Available [facility] (Lab) [address] [place], [address], 01/10/2023 10:03:46 01/11/20 23 01/10/2023 COMPR EHENS JAGDISH METAB OLIC PANEL chloride 105 mmol/ L 98-107 Not Available [facility] (Lab) [address] [place], [address], 01/10/2023 10:03:46 01/11/20 23 01/10/2023 COMPR EHENS JAGDISH METAB OLIC PANEL carbon dioxide 30 mmol/ L 22-30 Not Available [facility] (Lab) [address] [place], [address], 01/10/2023 10:03:46 01/11/20 23 01/10/2023 COMPR EHENS JAGDISH METAB OLIC PANEL anion gap 11.8 mmol/ L 14-22 low Not Available [facility] (Lab) [address] [place], [address], 01/10/2023 10:03:46 01/11/20 23 01/10/2023 COMPR EHENS JAGDISH METAB OLIC PANEL glucose 128 mg/dL 70-99 high Not Available [facility] (Lab) [address] [place], [address], 01/10/2023 10:03:46 01/11/20 23 01/10/2023 COMPR EHENS JAGDISH METAB OLIC PANEL BUN 25 mg/dL 8-19 high Not Available [facility] (Lab) [address] [place], [address], 01/10/2023 10:03:46 01/11/20 23 01/10/2023 COMPR EHENS JAGDISH METAB OLIC PANEL creatinine 0.98 mg/dL 0.66-1 .25 Not Available [facility] (Lab) [address] [place], [address], 01/10/2023 10:03:46 01/11/20 23 01/10/2023 COMPR EHENS JAGDISH METAB OLIC PANEL GFR >60 Refer ence Range : [place] ge GFR Healt hy Adult : >60 [...] calcu lator is avail able on the [facility] websi te: [email or web address] :[email or web address] rg/pr ofess ional s/kdo qi/gf r_cal culat or Not Available [facility] (Lab) [address] [place], [address], 01/10/2023 10:03:46 01/11/20 23 01/10/2023 COMPR EHENS JAGDISH METAB OLIC PANEL alkaline phosphatase 96 U/L 38-126 Not Available [facility] (Lab) [address] [place], [address], 01/10/2023 10:03:46 01/11/20 23 01/10/2023 COMPR EHENS JAGDISH METAB OLIC PANEL alanine aminotransfe rase 37 U/L 0-50 Not Available [facility] (Lab) [address] [place], [address], 01/10/2023 10:03:46 01/11/20 23 01/10/2023 COMPR EHENS JAGDISH METAB OLIC PANEL aspartate aminotransfe rase 35 U/L 15-46 Not Available [facility] (Lab) [address] [place], [address], 01/10/2023 10:03:46 01/11/20 23 01/10/2023 COMPR EHENS JAGDISH METAB OLIC PANEL bilirubin, total 0.50 mg/dL 0.20-1 .30 Not Available [facility] (Lab) [address] [place], [address], 01/10/2023 10:03:46 01/11/20 01/10/2023 COMPR EHENS JAGDISH METAB OLIC PANEL calcium 9.3 mg/dL 8.4-10 .2 Not Available [facility] (Lab) [address] [place], [address], 01/10/2023 10:03:46 01/11/20 23 01/10/2023 COMPR EHENS JAGDISH METAB OLIC PANEL total protein 7.4 g/dL 6.3-8. 2 Not Available [facility] (Lab) [address] [place], [address], 01/10/2023 10:03:46 01/11/20 23 01/10/2023 COMPR EHENS JAGDISH METAB OLIC PANEL albumin 4.5 g/dL 3.4-5. 0 Not Available [facility] (Lab) [address] [place], [address], 01/10/2023 10:03:46 01/11/20 23 01/10/2023 COMPR EHENS JAGDISH METAB OLIC PANEL globulin 2.9 g/dL 2.6-4. 2 Not Available [facility] (Lab) [address] [place], [address], 01/10/2023 10:03:46 01/11/20 23 01/10/2023 COMPR EHENS JAGDISH METAB OLIC PANEL A/G ratio 1.6 ratio 1.0-2. 0 Not Available [facility] (Lab) [address] [place], [address], 01/10/2023 10:03:46 01/11/20 23 01/10/2023 LIPID PANEL cholesterol 106 mg/dL 140-19 9 low NIH NILAM NSUS RECOM MENDA TION FOR MEGGAN STERO L: ADULT CHILD LOW RISK: <200 <170 BORDE RLINE : <200- 239 ----- HIGH RISK: >240 >200 Not Available [facility] (Lab) [address] [place], [address], 01/10/2023 10:03:51 01/11/20 23 01/10/2023 LIPID PANEL triglyceride s 60 mg/dL 0-150 NIH NILAM NSUS REPOR T RECOM MENDA TION FOR TRIGL YCERI LAURA: ADULT CHILD LOW RISK: <150 ----- BODER LINE: 150-1 99 ----- HIGH RISK: >200 ----- Not Available [facility] (Lab) [address] [place], [address], 01/10/2023 10:03:51 01/11/20 23 01/10/2023 LIPID PANEL HDL cholesterol 39 mg/dL 40- low Not Available [facility] (Lab) [address] [place], [address], 01/10/2023 10:03:51 01/11/20 23 01/10/2023 LIPID PANEL [...] WILL NOT BE REPOR NICOLAS. Not Available [facility] (Lab) [address] [place], [address], 01/10/2023 10:03:51 01/11/20 23 01/10/2023 T4 FREE free T4 1.02 NG/dL 0.78-2 .19 Not Available [facility] (Lab) [address] [place], [address], 01/10/2023 10:18:14 01/11/20 23 01/10/2023 TSH thyroid-stim ulating hormone 0.347 uIU/m L 0.465- 4.680 low Not Available [facility] (Lab) [address] [place], [address], 01/10/2023 10:34:27 01/11/20 23 01/10/2023 HEMOG LOBIN A1C HA1C 5.4 % 4.0-6. 0 Diabe ej Scree deep Crite angelica: <5.7% Consi stent with absen ce of diabe ej 5.7-6 .4% Consi stent with incre ased risk for diabe ej (pred iabet es) >OR=6 .5% Consi stent with diabe ej REFER ENCE: Diabe ej Care 2016, 39(Bhardwaj ppl.1 ):s13 -s22 Not Available [facility] (Lab) [address] [place], [address], 01/10/2023 12:11:03 01/11/20 23 01/10/2023 MICRO ALBUM N RNDM W/CRE AT RATIO ur creat 114.83 mg/dL REFER ENCE RANGE NOT ESTAB LISHE D FOR RANDO M URINE CREAT ININE Not Available [facility] (Lab) [address] [place], [address], 01/10/2023 16:12:11 01/11/20 23 01/10/2023 MICRO ALBUM N RNDM W/CRE AT RATIO microalbumin , urine 80.1 mg/L 0.0-16 .6 high Not Available [facility] (Lab) [address] [place], [address], 01/10/2023 16:12:11 01/11/20 23 01/10/2023 MICRO ALBUM [...] S94-S Brooke, OLI RY 2002 Not Available [facility] ([facility]) [address] [place], [address], 01/10/2023 16:12:11 Result Notes None recorded. Problems Name Problem SNOMED Code Status Onset Date Resolution Date Notes Provider Name and Address Organization Details Recorded Time Staphyloco ccal arthritis 187219415 Active 2021 Not Available [facility] 3 20:59:40 Bilateral shoulder joint pain 7011700421173 9104 Active 2021 Not Available [facility] 3 20:59:41 Peripheral neuropathy due to type 2 diabetes mellitus 5497027831341 Active 2019 Not Available [facility] 3 20:59:41 Postoperat jagdish visit 142562946 Active 2021 Not Available [facility] 3 20:59:41 Partial thickness rotator cuff tear 346406716 Active 2021 Not Available [facility] 3 20:59:41 Partial thickness rotator cuff tear 131289898 Active 2021 Not Available [facility] 3 20:59:41 Acute osteomyeli tis of phalanx of toe 475261417 Active 2021 Not Available [facility] 3 20:59:41 Knee pyogenic arthritis 602429455 Active 2021 Not Available [facility] 3 20:59:41 Pain in toe 970076431 Active 2021 Not Available [facility] 3 20:59:41 Osteoarthr itis of right knee joint 0406281437958 00 Active 2021 Not Available [facility] 3 20:59:42 Dyslipidem ia 274968005 Active 2021 Not Available [facility] 3 20:59:42 Diabetic foot ulcer 935222156 Active 2019 Not Available [facility] 3 20:59:42 Type 2 diabetes mellitus 22669236 Active 2021 Not Available [facility] 3 20:59:42 Uncontroll ed type 2 diabetes mellitus 512922948 Active 2021 Not Available [facility] 3 20:59:42 Pain of left knee joint 1142355518258 07 Active 2021 Not Available [facility] 3 20:59:42 Diabetes mellitus 65684275 Active 2019 Not Available [facility] 3 20:59:42 Amputated toe of right foot 822526467 Active 2021 Not Available [facility] 3 20:59:43 Arthritis 4820642 Active 2022 Marci garcia, [facility] 3 16:24:25 Dementia 77741273 Active 2022 Marci garcia, [facility] 3 16:24:42 Depressive disorder 18361190 Active 2022 Marci garcia, [facility] 3 16:24:51 Diabetic peripheral neuropathy 904870325 Active 2022 Zay Laird DPM [address], [place], [address] , [facility] 3 17:03:20 Dystrophia unguium 63549138 Active 2022 Zay Laird DPM [address], [place], [address] , [facility] 3 17:04:08 Foot callus 799773384 Active 2022 Zay Laird DPM [address], [place], [address] , [facility] 3 17:04:12 History of amputation of right great toe 1899901097130 9105 Active 2022 Zay Laird DPM [address], [place], [address] , [employer] 3 17:04:22 History of amputation of right lesser toe 9087982992810 9100 Active 2022 Zay Laird DPM [address], [place], [address] , [employer] 3 17:04:23 Acquired varus heel 662109388 Active 2022 Zay Laird DPM [address], [place], [address] , [employer] 3 14:44:11 Well controlled type 2 diabetes mellitus 894299988 Active 2022 Renee Lynch MD [address], [place], [address] , [employer] 3 09:50:39 Ulcer of foot 78423090 Active 2022 Zay Laird DPM [address], [place], [address] , [employer] 3 11:47:17 Notes:Some problems listed i n Documents: #[id number], #[id number] could not be added to this patient's chart. Please review these documents and add these problems to the patient's chart manually as needed. Problem Notes None recorded. Procedures Surgical History Date Name Laterality Status Provider Name and Address Organization Details Recorded Time 12/26/19 24 Nail Debridement completed Zay Laird DPM [address], [place], [address], [employer] 12/26/2023 13:03:19 04/17/20 23 Wound Care-Podiatry completed Zay Laird DPM [address], [place], [address], [employer] 04/18/2023 09:26:35 04/08/20 23 Wound Care-Podiatry completed Zay Laird DPM [address], [place], [address], [facility] [employer] [facility] [employer] [facility] 04/08/2023 11:44:19 01/08/20 23 Nail Debridement completed Zay Laird DPM [address], [place], [address], [facility] [employer] [facility] [employer] [facility] 01/24/2023 09:00:35 01/08/20 23 Callus Debridement 2-4 completed Zay Laird DPM [address], [place], [address], [facility] [employer] [facility] 01/24/2023 09:00:27 10/09/19 23 Nail Debridement completed Zay Laird DPM [address], [place], [address], [facility] [employer] [facility] [employer] [facility] 10/08/2022 17:03:05 10/09/19 23 Callus Debridement 2-4 completed Zay Laird DPM [address], [place], [address], [facility] [employer] [facility] [employer] [facility] 10/08/2022 17:03:09 Foot Surgery completed Not Available [facility] 08/01/2022 20:58:20 Carpal tunnel surgery completed Not Available [facility] 08/01/2022 20:58:20 amputation of toe completed Not Available [facility] 08/01/2022 20:58:20 Knee Surgery completed Not Available [facility] 08/01/2022 20:58:20 Unlisted px lungs & pleura completed Not Available [facility] 08/01/2022 20:58:20 Imaging Results None recorded. Procedure Notes None recorded. Medical Equipment None Reported. Allergies Allergen ID Allergen Name Allergen Category Reaction Reaction Severity Criticality Documentation Date Start Date Code Code System Note Provider Name and Address Organization Details Recorded Time 63485 vancomyci n medicatio n Not available Not available Not available 08/01/2022 52310 RxNorm Not Available [facility] 21:01:54 Medications Name Sig Start Date Stop [...] administe red by the provider 10/08 completed [facility] [place]: 0003- 0494- 20 Not Available Not Available [...] Updated DateTime 3 187.96 cm 29.5 kg/m2 221703. 25 g 94 /min 14 /min 98 % 98 % 107 mm[Hg] 75 mm[Hg] Frances SANDERS AL [employer] [facility] 3 12:29:43 Date Recorded Body height Body mass index (BMI) Body weight Body temperature Respiratory rate Heart rate Systolic blood pressure Diastolic blood pressure Provider Name and Address Organization Details Last Updated DateTime 3 187.96 cm 30 kg/m2 783771. 9 g 97.8 [degF] 12 /min 60 /min 110 mm[Hg] 72 mm[Hg] Sherri Gonzalez RN [facility] [employer] [facility] 3 09:35:12 Date Recorded Body height Provider Name an d Address Organization Details Last Updated DateTime 04/08/2023 187.96 cm Marci Bunch [facility] 04/08/2023 11:22:44 Date Recorded Body height Heart rate Respiratory rate Body temperature Oxygen saturation Oxygen saturation in Arterial blood by Pulse oximetry Systolic blood pressure Diastolic blood pressure Provider Name and Address Organization Details Last Updated DateTime 3 187.96 cm 56 /min 18 /min 97.2 [degF] 100 % 100 % 125 mm[Hg] 74 mm[Hg] Agueda Mujica RN [facility] [employer] [facility] 3 17:08:01 Date Recorded Body height Body mass index (BMI) Body weight Heart rate Respiratory rate Body temperature Systolic blood pressure Diastolic blood pressure Provider Name and Address Organization Details Last Updated DateTime 4 187.96 cm 29.9 kg/m2 305128. 02 g 60 /min 16 /min 98.6 [degF] 120 mm[Hg] 70 mm[Hg] [place]ia Darnell MA [facility] [employer] [facility] 4 12:52:14 Social History Question Answer Notes LastModified by Organizat ion Details LastModified Time Tobacco Smoking Status Current Every Day Smoker Not Available [facility] 08/01/2022 20:57:55 What Is Your Level Of Alcohol Consumption? Occasional [email or web address] Information not available 10/08/2022 What Is Your Level Of Caffeine Consumption? Heavy [id number] Information not available 08/01/2022 In The 14 Days Before Symptom Onset, Have You Had Close Contact With A Laboratory-confir med COVID-19 While That Case Was Ill? No [id number] Information not available 08/01/2022 In The 14 Days Before Symptom Onset, Have You Had Close Contact With A Person Who Is Under Investigation For COVID-19 While That Person Was Ill? No [id number] Information not available 08/01/2022 What Type Of Diet Are You Following? REGULAR MIGRATION.[id number] 2928 Information not available 08/01/2022 Do You Or Have You Ever Used E-cigarettes Or Vape? Never Used Electronic Cigarettes [id number].[id number] 9845 Information not available 08/01/2022 What Is Your Relationship Status? MIGRATION.[id number] 5312 Information not available 08/01/2022 How Much Tobacco Do You Smoke? 0.5 PPD MIGRATION.591548 9324 Information not available 08/01/2022 Do You Use Any Illicit Or Recreational Drugs? No MIGRATION.089928 6993 Information not available 08/01/2022 Have You Recently Traveled Abroad? No MIGRATION.[id number] 5448 Information not available 08/01/2022 Do You Have Any Dietary Restrictions? No MIGRATION.[id number] 7242 Information not available 08/01/2022 Sex: Male Functional Status None recorded. Mental Status None recorded. Family History Nothing Reported. Medical History Condition Response DIABETES, TYPE Y ARTHRITIS Y DEPRESSION (INCLUDING POST ) Y HYPERTENSION Y Past Encounters Encounter ID Performer Location Encounter Start Date Encounter Closed Date Diagnosis/Indication Diagnosis SNOMED-CT Code Diagnosis ICD10 Code Diagnosis Note [id number] _LISA_M IGRATION_ DEFAULT_1 _1 , 09/08/2020 00:00:00 09/08/2020 17:23:35 [id number] [facility] [address] [place] [address] 08/08/2021 00:00:00 08/08/2021 14:07:37 [id number] [facility] [address] [address] 12/19/2021 00:00:00 12/19/2021 11:26:10 [id number] [facility] [address] [place] [address] 12/26/2021 00:00:00 12/26/2021 14:44:41 [id number] [facility] [address] [place] [address] 01/02/2022 00:00:00 01/02/2022 14:47:40 [id number] _ATHENA_M IGRATION_ DEFAULT_1 _1 , 01/11/2022 00:00:00 01/11/2022 13:57:45 [id number] [facility] [address] [place] [address] 01/16/2022 00:00:00 01/16/2022 10:24:13 [id number] [facility] [address] [place] [address] 01/16/2022 00:00:00 01/16/2022 14:18:18 [id number] [facility] [address] [place] [address] 02/06/2022 00:00:00 02/06/2022 19:41:42 [id number] [facility] [address] [place] [address] 02/13/2022 00:00:00 02/13/2022 11:48:45 [id number] [facility] [address] [place] [address] 03/06/2022 00:00:00 03/06/2022 11:05:23 [id number] [facility] [address] [place] [address] 03/13/2022 00:00:00 03/13/2022 11:36:28 [id number] [facility] [address] [address] 03/27/2022 00:00:00 03/27/2022 10:16:49 [id number] Zay Laird DPM [facility] [address] [facility] [address] [place] [address] 10/08/2022 16:12:23 10/08/2022 17:09:16 Diabetic peripheral neuropathy 867013133 E11.42 Patient educated on neuropathy , diabetes, diabetic diet, and daily foot exams. Patient is to check feet daily for new wounds, blisters, redness to prevent infection and ulceration s to the feet. Patient will return to clinic in 3 months for diabetic foot workup. History of amputation of right great toe 0928431344 9857597 Z89.411 partial 1st raycontinu e diabetic custom inserts History of amputation of right lesser toe 9462129138 5047302 Z89.421 partial 2nd toeas above Dystrophia unguium 58125 009 L60.3 Nails 1 through 8 were debrided with sharp mechanical debridemen t without incident. Nails were debrided and greater than 50% length and thickness where needed. Foot callus 853539704 L8 4 Bilateral feetDebrid ed without incidentCo ntinue custom diabetic insertsFol low-up in 3 months [id number] Zay Laird DPM [facility] [address] [place] [address] 01/07/2023 12:27:11 01/28/2023 11:49:46 Acquired varus heel 382870366 M21.179 Rx [place] brace Diabetic p eripheral neuropathy 147285457 E11.42 Patient educated on neuropathy , diabetes, diabetic diet, and daily foot exams. Patient is to check feet daily for new wounds, blisters, redness to prevent infection and ulceration s to the feet. Patient will return to clinic in 3 months for diabetic foot workup. Dystrophia unguium 59891 009 L60.3 Nails 1 through 8 were debrided with sharp mechanical debridemen t without incident. Nails were debrided and greater than 50% length and thickness where needed. Foot callus 494484782 L8 4 Bilateral feetDebrid ed without incidentCo ntinue custom diabetic insertsFol low-up in 3 months [id number] Renee Lynch MD [facility] [address] [place] [address] 01/18/2023 09:17:35 01/18/2023 10:02:06 Well controlled type 2 diabetes mellitus 231764235 E11.9 a1c of 5.4% down from 8.3%- [...] Recommende d patient to utilize the diabetesfo od[employer]b.com from the ADA website to help with food preparatio n as this presents ideal carb content per meal so this will make carb counting much easier for patient. Recommende d he incorporat e natural insulin representative s such as pears, apples, cinnamon, cele and sweet potatoes to help mobilize his endogenous insulin. Recommende d up to 150 minutes of moderate level activity/e xercise weekly. Dyslipidemia 137212059 E 78.5 continue on atorvastat in 40 [...] answered and refills necessary at visit today. [id number] REGGIE [facility] [address] [place] [address] 04/08/2023 11:10:24 04/08/2023 12:00:01 Foot callus 506904098 L84 Bilateral feetRecomm end use of pumice stoneConti nue custom diabetic insertsFol low-up in 3 months History of amputation of right lesser toe 2689922414 9068179 Z89.421 partial 2nd toeas above Ulcer of foot 84922103 L 97.212 debrided noterecomm end Betadine wet-to-dry dressing dailyofflo ading to prevent worseningr eferral to [facility], see myselffoll ow-up 1 week [id number] Zay Laird DPM [facility] [address] [place] [address] 04/17/2023 16:33:29 04/17/2023 17:26:21 Ulcer of foot 94441904 L97.212 debrided noterecomm end Betadine wet-to-dry dressing dailyofflo ading to prevent worsening follow-up 2 weeks History of amputation of right lesser toe 3616504807 6610928 Z89.421 partial 2nd toeas above [id number] Zay Laird DPM [facility] [address] [place] [address] 12/26/2023 12:47:03 12/26/2023 13:24:29 Diabetes mellitus 57682137 E11.621 continue diabetic control per PCP recommenda tions Diabetic foot ulcer 3710 95734 E13.621 left 2nd toewound care dailyofflo ading dailyfollo w-up 1 week Diabetic p eripheral neuropathy 642553010 E11.42 Patient educated on neuropathy , diabetes, diabetic diet, and daily foot exams. Patient is to check feet daily for new wounds, blisters, redness to prevent infection and ulceration s to the feet. Patient will return to clinic in 3 months for diabetic foot workup. Dystrophia unguium 64156 009 L60.3 Nails 1 through 8 were [...] Horne Member ID Guarantor Name 01/07/2023 1 [facility] (MEDICAID REPLACEMENT - HMO) [id number] Bob Webster [id number] Bob Webster 01/18/2023 1 [facility] (MEDICAID REPLACEMENT - HMO) [id number] Bob Webster [id number] Bob Webster 04/08/[address] [facility] (MEDICAID REPLACEMENT - HMO) [id number] Bob Webster [id number] Bob Webster 04/17/2023 1 [facility] (MEDICAID REPLACEMENT - HMO) [id number] Bob Webster [id number] Bob Webster 12/26/2023 1 MEDICARE-[place] (MEDICARE) Bob Webster II [id number] Bob Webster Notes Date Note Type [...] any other complaints. Zay Laird DPM [address] [facility], [place], [address], [employer] 01/24/2023 09:00:55 01/18/2023 text/html 57 yo male [...] Lynch MD [address], [place], [address], [employer] 01/18/2023 09:57:01 04/08/2023 text/html . Patient is [...] Laird DPM [address], [place], [address], [employer] 04/08/2023 11:48:29 04/17/2023 text/html . Patient is [...] Laird DPM [address], [place], [address], [employer] 04/18/2023 09:27:06 12/26/2023 text/html Patient is a 58-year-old male diabetic who returns the office for diabetic foot care. Patient upon exam has a wound to the medial aspect of the left 2nd toe which he was unaware of. Patient denies any fever, chills, nausea vomiting. Patient denies any other complaints. Zay Laird DPM [address], [place], [address], [employer] 12/26/2023 13:05:40
--- OUTSIDE RECORDS SUMMARY | 2024-08-15 01:43 | XMS_ITS | Clinical Summary ---
Author Organization [facility] Address [address] [place] [address] Care Team Providers Care Souvenir Assembler Name Role Phone Miguelito Albrecht MD Primary Care Provider [phone] HusRyley garcia MD Unavailable [phone] Allergies No known active allergies Medications glipiZIDE [...] age to complete this topic Care Teams Souvenir Assembler Relationship Specialty Start Date End Date Miguelito Albrecht MD [address] [place] [address] PCP - General INTERNAL MEDICINE 12/18/18 Ryley Narvaez MD [address] [place] [address] EP Cheese Blender CARDIOVASCULAR DISEASE 12/29/18
--- OUTSIDE RECORDS SUMMARY | 2024-08-15 01:43 | XMS_ITS | CONTINUITY OF CARE DOCUMENT ---
Author Name jose garcia Address Unknown Organization [facility] Address [address] [place] [address] Phone [phone] Care Team Providers Care Scrap Preparation Supervisor Name Role Phone Dwight Thornton MD Unavailable [phone] FOUZIA SMITH MD Unavailable FOUZIA SMITH MD Unavailable PROBLEMS Condition Status Date Provider Notes Exposure to SARS-associated coronavirus active Melisa Bergeron Cardiology examination completed 7 - Dwight Thornton MD Diabetes, Type 2 active Dwight Thornton MD Hyperlipidemia active Dwight Thornton MD Tobacco abuse active Dwight Thornton MD Palpitations active Dwight Thornton MD Abnormal cardiovascular stress test active Radha Foley Fatigue active Dwight Thornton MD CAD active Radha Foley ENCOUNTERS Date Type Provider Location Encounter Diag nosis - In-person encounter Office Visit Dwight Thornton MD [place] [facility] CAD - In-person encounter Office Visit Dwight Thornton MD [facility] [place] [facility] Cardiology examinationFatigue - In-person encounter Office Visit Dwight Thornton MD [place] [facility] Diabetes, Type 2HyperlipidemiaTobacco abusePalpitationsAbnormal cardiovascular stress test VITAL SIGNS Date Observation Value Provider Body Mass Index (Ratio) 31.19 kg/m2 Desi Foley blood pressure, diastolic 77 mm[Hg] Ri jodi Paris blood pressure, systolic 117 mm[Hg] Colten helmeagan Paris blood pressure, cuff size large Perez Paris oxygen saturation, oximetry 94 % Marina Paris respiratory rate E&M 16 /min Cain Paris pulse rate 90 /min Marina vaz weight E&M 230 [lb_av] Marina Li son height E&M 72 [in_i] Marina vaz Body Mass Index (Ratio) 29.70 kg/m2 Dallas Munoz blood pressure, diastolic 79 mm[Hg] Mi jodi Loja blood pressure, systolic 119 mm[Hg] Enio helle Loja respiratory rate E&M 16 /min Madina Loja pulse rate 93 /min Ewa nicolas weight E&M 219 [lb_av] Ewa nicolas oxygen saturation, oximetry 94 % Ewa Loja blood pressure, cuff size large Christine zapata [place] height E&M 72 [in_i] Ewa nicolas Body Mass Index (Ratio) 29.70 kg/m2 Desi Foley blood pressure, cuff size large Christine zapata Loja blood pressure, diastolic 61 mm[Hg] Mi jodi Loja blood pressure, systolic 93 mm[Hg] Enio helle Loja oxygen saturation, oximetry 96 % Ewa Loja pulse rate 86 /min Ewa nicolas respiratory rate E&M 16 /min Madina javier Loja weight E&M 219 [lb_av] Ewa Tevindeven nicolas height E&M 72 [in_i] Ewa nicolas HISTORY OF MEDICATION USE Medication Status Instructions Dates Provider Indications Com ments Victoza 2-Desean 0.6 mg/0.1 mL (18 mg/3 mL) pen injector active Ewa Loja doxycycline monohydrate 100 mg capsule active Ewa Loja metoprolol tartrate 25 mg tablet active Ewa Loja amitriptyline 25 mg tablet active Ewa Loja metformin 500 mg tablet active Ewa Loja atorvastatin 40 mg tablet active Ewa Loja celecoxib 200 mg capsule active Ewa Loja SOCIAL HISTORY Date Observation Value Provider social history E&M S moking History: P atient currently smokes every day. Dwight Thornton MD social history reviewed E&M revi ewed - no changes required Dwight Thornton MD smoking history, tot al pack/day 1 Marina Paris cigarette use yes Marina brown smoking status Current every day smoker R chase Paris social history E&M S moking History: P atient currently smokes every day. Dallas Munoz social history reviewed E&M revi ewed - no changes required Dallas Munoz smoking history, tot al pack/day 1 Ewa Loja cigarette use yes Ewa Stone nd smoking status Current every day smoker Lashae Loja drug use, illicit, d rug of choice marijuana Dwight Thornton MD drug use yes Dwight Thornton MD social history E&M S moking History: P atient currently smokes every day. Dwight Thornton MD social history reviewed E&M revi ewed - no changes required Dwight Thornton MD smoking history, tot al pack/day 1 Ewa Loja cigarette use yes Ewa [address] smoking status Current every day smoker M chase Loja INSURANCE PROVIDERS Payer name Policy type / Coverage type [place] red green party ID [place] [employer] Medicare [id number] ADVANCE DIRECTIVES Name Date DISCUSSED - NO DECISION MADE TREATMENT PLAN Date Name Performer [id number],C, H is updated medication list for this problem includes: Victoza 2-desean 0.6 Mg/0.1 Ml (18 Mg/3 Ml) Pen Injector (Liraglutide) Metformin 500 Mg Tablet (Metformin) Radha Foley [id number],S, T he Patient was reencouraged to stop smoking. Radha Foley [id number],C, H is updated medication list for this problem includes: Atorvastatin 40 Mg Tablet (Atorvastatin) Radha Foley [id number],C,C ardiac cath revealed 50% stenosis of the RCA with normal IFR, heavily calcified. Will continue maximal risk factor modifications. Advised again to quit smoking and to take aspirin 81 mg daily. Pt denies SOB and chest pain. H is updated medication list for this problem includes: Metoprolol Tartrate 25 Mg Tablet (Metoprolol tartrate) Radha Foley [id number],C,T he Patient was reencouraged to stop smoking. Radha Foley [id number],C, H is updated medication list for this problem includes: Victoza 2-desean 0.6 Mg/0.1 Ml (18 Mg/3 Ml) Pen Injector (Liraglutide) Metformin 500 Mg Tablet (Metformin) Radha Foley [id number],C, H is updated medication list for this problem includes: Atorvastatin 40 Mg Tablet (Atorvastatin) Radha Foley [id number],C,T he pt had amputation of the right great toe. He had systemic infections including knee and chest requring surgery. EKG is abnormal with evdience of inferior wall PA, age undetermined. Pt denies SOB and chest pain. Will schedule arterial duplex and venous duplex of the lower extremities, echo, and stress test regadenosen. Radha Foley [id number],C,T he pt had amputation of the right great toe. He had systemic infections including knee and chest requring surgery. EKG is abnormal with evdience of inferior wall PA, age undetermined. Pt denies SOB and chest pain. Will schedule arterial duplex and venous duplex of the lower extremities, echo, and stress test regadenosen. Radha Becerraaztanya Cardiology: H is updated medication list for this problem includes: Victoza 2-desean 0.6 Mg/0.1 Ml (18 Mg/3 Ml) Pen Injector (Liraglutide) Metformin 500 Mg Tablet (Metformin) [facility] T he Patient was reencouraged to stop smoking. Radha [facility]elle [facility] Cardiology: H is updated medication list for this problem includes: Atorvastatin 40 Mg Tablet (Atorvastatin) [facility]:Cardiac c ath revealed 50% stenosis of the RCA with normal IFR, heavily calcified. Will continue maximal risk factor modifications. Advised again to quit smoking and to take aspirin 81 mg daily. Pt denies SOB and chest pain. H is updated medication list for this problem includes: Metoprolol Tartrate 25 Mg Tablet (Metoprolol tartrate) [facility]:The Patie nt was reencouraged to stop smoking. [facility]: H is updated medication list for this problem includes: Victoza 2-desean 0.6 Mg/0.1 Ml (18 Mg/3 Ml) Pen Injector (Liraglutide) Metformin 500 Mg Tablet (Metformin) [facility]: H is updated medication list for this problem includes: Atorvastatin 40 Mg Tablet (Atorvastatin) [facility]:The pt cummins d amputation of the right great toe. He had systemic infections including knee and chest requring surgery. EKG is abnormal with evdience of inferior wall PA, age undetermined. Pt denies SOB and chest pain. Will schedule arterial duplex and venous duplex of the lower extremities, echo, and stress test regadenosen. Radha Foley Cardiology:The pt cummins d amputation of the right great toe. He had systemic infections including knee and chest requring surgery. EKG is abnormal with evdience of inferior wall PA, age undetermined. Pt denies SOB and chest pain. Will schedule arterial duplex and venous duplex of the lower extremities, echo, and stress test regadenosen. Radha Foley Date Name PROTHROMBIN TIME WIT H INR LIPID PANEL CBC (INCLUDES DIFF/P LT) BASIC METABOLIC PANE L W/EGFR COVID19 nasal swab ( LC) COVID19 nasal swab ( LC) PROTHROMBIN TIME WIT H INR LIPID PANEL CBC (INCLUDES DIFF/P LT) BASIC METABOLIC PANE L W/EGFR PROTHROMBIN TIME WIT H INR LIPID PANEL CBC (INCLUDES DIFF/P LT) BASIC METABOLIC PANE L W/EGFR Cardiac Cath - Left - Other Arterial Duplex Bi-L ower EX Venous Doppler Bilat eral LE - Reflux Stress Regadenoson Complete Echo HISTORY OF PROCEDURES Procedure Date Procedure Name Provider Procedure Notes S tatus EKG Dwight Thornton MD completed
--- OUTSIDE RECORDS SUMMARY | 2024-08-15 01:43 | XMS_ITS | Patient Health Summary ---
Author Organization [facility] Address [address] [place] [address] Care Team Providers Care International Travel Consultant Name Role Phone Miguelito Albrecht MD Primary Care Provider Note from [facility],non-owned Affiliates and Associated Physician Practices is amultiple site organization consisting of ambulatory clinics and hospital sitesin [place], [place], [place] and [place]. This disclosure is being madepursuant to the Care Everywhere program and may not contain all information available regarding this patient. Last updated 18.[facility] Allergies No known active allergies Medications * [...] Comments Blood Pressure 148/81 07/01/2019 12:26 PM CASHIER PAYMENTS RECEIVED Pulse 80 07/01/2019 12:26 PM CASHIER PAYMENTS RECEIVED Temperature 36.2 C (97.1 F) 07/01/2019 12:26 PM CASHIER PAYMENTS RECEIVED Respiratory Rate 16 04/29/2019 4:12 AM CASHIER PAYMENTS RECEIVED Oxygen Saturation 98% 07/01/2019 12:26 PM CASHIER PAYMENTS RECEIVED Inhaled Oxygen Concentration 40% 04/27/2019 1 :45 PM CASHIER PAYMENTS RECEIVED Weight 115.2 kg (254 lb) 07/01/2019 12:26 PM CASHIER PAYMENTS RECEIVED Height 188 cm (6' 2 ) 07/01/2019 12:26 PM CASHIER PAYMENTS RECEIVED Body Mass Index 32.61 07/01/2019 12:26 PM CASHIER PAYMENTS RECEIVED Procedures * CARDIAC EKG ORDER(Performed 05/14/2019) * [...] * CARDIAC EKG ORDER (05/14/2019 10:01 AM CASHIER PAYMENTS RECEIVED) Only the most recent of2 resultswithin the time period is included. Narrative 05/14/2019 10:01 AM CASHIER PAYMENTS RECEIVED Ordered by an unspecified provider. Scanned Document CARDIAC SERVICES ORD ERABLES * (ABNORMAL) GLUCOSE - POINT OF CARE (04/29/2019 8:02 AM CASHIER PAYMENTS RECEIVED) Only the most recent of80 resultswithin the time period is included. Glucose WB/POC 130(H) 70 - 115 mg/dL 04/29/2019 8:05 AM CASHIER PAYMENTS RECEIVED [facility] Specimen Type Arterial/C apillary 04/29/2019 8:05 AM [facility] Comment:LIGHTING FIXTURE INSTALLER: Coty raymundo Blood BLOOD SPECIMEN / Unknown 04/29/2019 8:02 AM CASHIER PAYMENTS RECEIVED 04/29/2019 8:05 AM CASHIER PAYMENTS RECEIVED Hiwot William MD LAB - POINT OF CARE ORDERABLES [facility] [address] [place] [address] * (ABNORMAL) CBC W/O DIFFERENTIAL (04/29/2019 5:22 AM CASHIER PAYMENTS RECEIVED) Only the most recent of8 resultswithin the time period is included. WBC 7.5 3.5 - 10.5 10 3/uL 04/29/2019 5:29 AM [facility] RBC 4.07(L) 4.30 - 5.70 10 6/uL 04/29/2019 5:29 AM [facility] Hemoglobin 12.4(L) 13.5 - 17.5 g/dL 04/29/2019 5:29 AM [facility] Hematocrit 37.4(L) 39.0 - 50.0 % 04/29/2019 5:29 AM [facility] MCV 91.9 81.0 - 97.0 fL 04/29/2019 5:29 AM [facility] MCH 30.5 28.0 - 34.0 pg 04/29/2019 5:29 AM [facility] MCHC 33.2 32.0 - 36.0 g/dL 04/29/2019 5:29 AM [facility] Platelet Count 208 150 - 400 10 3/uL 04/29/2019 5:29 AM [facility] RDW-SD 43.8 36.0 - 50.0 fL 04/29/2019 5:29 AM [facility] RDW-CV 13.1 11.2 - 14.8 % 04/29/2019 5:29 AM [facility] MPV 8.6(L) 9.3 - 12.8 fL 04/29/2019 5:29 AM [facility] nRBC Absolute 0.00 0 10 3/uL 04/29/2019 5:29 AM [facility] nRBC Auto 0.0 0 /100 WBC 04/29/2019 5:29 AM [facility] Blood BLOOD SPECIMEN / Unknown Venipuncture / Unknown 04/29/2019 5:22 AM [employer] PAYMENTS RECEIVED 04/29/2019 5:27 AM CASHIER PAYMENTS RECEIVED Diana Elys Ayla PURCELL LAB - HEMATOLOG Y ORDERABLES [facility] [address] [place] [address] * (ABNORMAL) BASIC METABOLIC PANEL (CALCIUM TOTAL) (04/29/2019 5:22 AM CASHIER PAYMENTS RECEIVED) Only the most recent of13 resultswithin the time period is included. BUN 21 7 - 26 mg/dL 04/29/2019 5:55 AM [facility] Creatinine 0.9 0.6 - 1.2 mg/dL 04/29/2019 5:55 AM [facility] Sodium 140 136 - 145 mmol/L 04/29/2019 5:55 AM [facility] Potassium 4.1 3.5 - 4.5 mmol/L 04/29/2019 5:55 AM [facility] Chloride 103 98 - 107 mmol/L 04/29/2019 5:55 AM [facility] CO2 29 22 - 29 mmol/L 04/29/2019 5:55 AM [facility] Glucose 151(H) 70 - 115 mg/dL 04/29/2019 5:55 AM [facility] Calcium 9.6 8.4 - 10.2 mg/dL 04/29/2019 5:55 AM [facility] Anion Gap 12 8 - 18 04/29/2019 5:55 AM [facility] BUN/Creatinine Ratio 23 7 - 23 04/29/2019 5:55 AM [facility] Osmolality Calculated 296 270 - 300 mOsm/kg 04/29/2019 5:55 AM [facility] eGFR >60 >60 mL/min/1.7 3 m2 04/29/2019 5:55 AM [facility] Blood BLOOD SPECIMEN / Unknown Venipuncture / Unknown 04/29/2019 5:22 AM C[employer]IER PAYMENTS RECEIVED 04/29/2019 5:27 AM CASHIER PAYMENTS RECEIVED Diana Aguila DO LAB - CHEMISTRY ORDERABLES Performing Organization Address City/[facility]/[place] [address], [facility] [phone] * PHOSPHORUS BLOOD (04/29/2019 5:22 AM CASHIER PAYMENTS RECEIVED) Only the most recent of2 resultswithin the time period is included. Phosphorus 3.4 2.3 - 4.7 mg/dL 04/29/2019 5:55 AM CASHIER PAYMENTS RECEIVED [facility] Blood BLOOD SPECIMEN / Unknown Venipuncture / Unknown 04/29/2019 5:22 AM C[employer]IER PAYMENTS RECEIVED 04/29/2019 5:27 AM CASHIER PAYMENTS RECEIVED Diana Aguila DO LAB - CHEMISTRY ORDERABLES Performing Organization Address [facility] Co de Phone Number [address] [phone] * MAGNESIUM BLOOD (04/29/2019 5:22 AM CASHIER PAYMENTS RECEIVED) Only the most recent of3 resultswithin the time period is included. Magnesium 1.6 1.6 - 2.6 mg/dL 04/29/2019 5:55 AM CASHIER PAYMENTS RECEIVED [facility] Blood BLOOD SPECIMEN / Unknown Venipuncture / Unknown 04/29/2019 5:22 AM C[employer]IER PAYMENTS RECEIVED 04/29/2019 5:27 AM CASHIER PAYMENTS RECEIVED Diana Patelalisonwyatt DO LAB - CHEMISTRY ORDERABLES Performing Organization Address City/[facility] [place] [address], [facility] [phone] * Peripheral Nerve Block (04/27/2019 3:11 PM CASHIER PAYMENTS RECEIVED) Narrative Lorenzo Galvan MD - 04/27/2019 3:11 PM CASHIER PAYMENTS RECEIVED Lorenzo Galvan MD 04/27/2019 3:13 PM Peripheral [...] (ABNORMAL) CULTURE WOUND+GRAM STAIN (04/27/2019 12:34 PM CASHIER PAYMENTS RECEIVED) Only the most recent of2 resultswithin the time period is included. Culture Light Enterobacter cloacae complex(A) ZIA 04/29/2019 10:32 AM [facility] Culture Rare Staphylococcus aureus methicillin-resi stant (MRSA)(A) ZIA 04/29/2019 10:32 AM [facility] Comment:Staphylococcus aureu s methicillin-resistant (MRSA) detected by penicillin binding protein immunoassay. Contact precautions required. Conventional antibiotic susceptibility testing to follow. Culture Rare normal skin ryan ZIA 04/29/2019 10:32 AM [facility] Gram Stain No organisms seen 04/29/2019 10:32 AM [facility] Microbiology ENTIRE FOOT / Unknown Collection / Unknown 04/27/2019 12:34 PM CASHIER PAYMENTS RECEIVED 04/27/2019 1:44 PM CASHIER PAYMENTS RECEIVED [facility] - 04/29/2019 10:32 AM [facility] Methicillin-resistant Staphylococci (MRSA) are resistant to all [...] Hiwot William MD LAB - MICROBIOLOGY ORDERABLES [facility] [address] [place] [address], [facility] [phone] * CULTURE ANAEROBE (04/27/2019 12:34 PM CASHIER PAYMENTS RECEIVED) Culture No anaerobic organisms isolated ZIA 05/04/2019 12:44 PM CASHIER PAYMENTS RECEIVED [facility] Microbiology ENTIRE FOOT / Unknown Collection / Unknown 04/27/2019 12:34 PM CASHIER PAYMENTS RECEIVED 04/27/2019 1:44 PM CASHIER PAYMENTS RECEIVED Hiwot William MD LAB - MICROBIOLOGY ORDERABLES Performing Organization Address City/[facility]/ZIP Co de Phone Number [facility] [address] [place] [address], [facility] [phone] * (ABNORMAL) CBC WITH DIFFERENTIAL (04/24/2019 12:39 PM CASHIER PAYMENTS RECEIVED) Only the most recent of15 resultswithin the time period is included. WBC 7.4 3.5 - 10.5 10 3/uL 04/24/2019 12:57 PM [facility] RBC 4.25(L) 4.30 - 5.70 10 6/uL 04/24/2019 12:57 PM [facility] Hemoglobin 13.0(L) 13.5 - 17.5 g/dL 04/24/2019 12:57 PM [facility] Hematocrit 39.0 39.0 - 50.0 % 04/24/2019 12:57 PM [facility] MCV 91.8 81.0 - 97.0 fL 04/24/2019 12:57 PM [facility] MCH 30.6 28.0 - 34.0 pg 04/24/2019 12:57 PM [facility] MCHC 33.3 32.0 - 36.0 g/dL 04/24/2019 12:57 PM [facility] Platelet Count 214 150 - 400 10 3/uL 04/24/2019 12:57 PM [facility] RDW-SD 43.5 36.0 - 50.0 fL 04/24/2019 12:57 PM [facility] RDW-CV 13.1 11.2 - 14.8 % 04/24/2019 12:57 PM [facility] MPV 9.0(L) 9.3 - 12.8 fL 04/24/2019 12:57 PM [facility] nRBC Absolute 0.00 0 10 3/uL 04/24/2019 12:57 PM [facility] nRBC Auto 0.0 0 /100 WBC 04/24/2019 12:57 PM [facility] Neutrophils % 70.4(H) 35.0 - 70.0 % 04/24/2019 12:57 PM [facility] Lymphocytes % 19.4(L) 19.7 - 55.1 % 04/24/2019 12:57 PM [facility] Monocytes % 6.9 3.0 - 15.0 % 04/24/2019 12:57 PM [facility] Eosinophils % 2.2 0.0 - 6.0 % 04/24/2019 12:57 PM [facility] Basophil % 0.7 0.0 - 1.5 % 04/24/2019 12:57 PM [facility] Neutrophils Absolute 5.3 1.6 - 7.0 10 3/uL 04/24/2019 12:57 PM [facility] Lymphocyte Absolute 1.4 0.8 - 2.9 10 3/uL 04/24/2019 12:57 PM [facility] Monocytes Absolute 0.51 0.14 - 0.66 10 3/uL 04/24/2019 12:57 PM [facility] Eosinophils Absolute 0.16 0.00 - 0.45 10 3/uL 04/24/2019 12:57 PM [facility] Basophils Absolute 0.05 0.00 - 0.06 10 3/uL 04/24/2019 12:57 PM [facility] Immature Granulocytes % 0.4 0.0 - 1.0 % 04/24/2019 12:57 PM [facility] Blood BLOOD SPECIMEN / Unknown Lab Venipuncture / Unknown 04/24/2019 12:39 PM CASHIER PAYMENTS RECEIVED 04/24/2019 12:52 PM CASHIER PAYMENTS RECEIVED Hiwot William MD LAB - HEMATOLOGY OR DERABLES Performing Organization Address [facility]/ZIP Co de Phone Number [address] [phone] * (ABNORMAL) VANCOMYCIN LEVEL TROUGH (04/24/2019 12:39 PM CASHIER PAYMENTS RECEIVED) Only the most recent of6 resultswithin the time period is included. Pathologist [facility] Vancomycin Trough <3.0(L) 10.0 - 20.0 mcg/mL 04/24/2019 1:19 PM CASHIER PAYMENTS RECEIVED [facility] Blood BLOOD SPECIMEN / Unknown Lab Venipuncture / Unknown 04/24/2019 12:39 PM CASHIER PAYMENTS RECEIVED 04/24/2019 12:52 PM CASHIER PAYMENTS RECEIVED Hiwot William MD LAB - CHEMISTRY ORD ERABLES Performing Organization Address [facility] Co de Phone Number [address] [phone] * (ABNORMAL) RENAL FUNCTION PANEL (02/25/2019 12:14 PM CDT) Only the most recent of7 resultswithin the time period is included. BUN 70(H) 7 - 26 mg/dL 02/25/2019 1:39 PM [facility] Creatinine 4.6(H) 0.6 - 1.2 mg/dL 02/25/2019 1:39 PM [facility] Sodium 141 136 - 145 mmol/L 02/25/2019 1:39 PM [facility] Potassium 4.1 3.5 - 4.5 mmol/L 02/25/2019 1:39 PM [facility] Chloride 101 98 - 107 mmol/L 02/25/2019 1:39 PM [facility] CO2 26 22 - 29 mmol/L 02/25/2019 1:39 PM [facility] Glucose 151(H) 70 - 115 mg/dL 02/25/2019 1:39 PM [facility] Albumin 4.3 3.4 - 5.0 g/dL 02/25/2019 1:39 PM [facility] Calcium 10.2 8.4 - 10.2 mg/dL 02/25/2019 1:39 PM [facility] Phosphorus 5.4(H) 2.3 - 4.7 mg/dL 02/25/2019 1:39 PM [facility] Anion Gap 18 8 - 18 02/25/2019 1:39 PM [facility] BUN/Creatinine Ratio 15 7 - 23 02/25/2019 1:39 PM [facility] Osmolality Calculated 315(H) 270 - 300 mOsm/kg 02/25/2019 1:39 PM [facility] eGFR 14(L) >60 mL/min/1.7 3 m2 02/25/2019 1:39 PM [facility] Blood BLOOD SPECIMEN / Unknown Lab Venipuncture / Unknown 02/25/2019 12:14 PM CDT 02/25/2019 12:58 PM T Dianelys Lisa MD LAB - CHEMISTRY JOVANNI SEARS [facility] Organization Address City/State/ZIP Co de Phone Number [address] [phone] * URINALYSIS W/MICROSCOPIC NO CULTURE (02/17/2019 7:00 PM CDT) Only the most recent of2 resultswithin the time period is included. Color UA Straw Straw, Yellow, Colorless 02/17/2019 7:19 PM [facility] Clarity UA Clear Clear, Slt Cloudy 02/17/2019 7:19 PM [facility] Specific [place] UA 1.009 1.005 - 1.030 02/17/2019 7:19 PM [facility] pH UA 6.0 5.0 - 8.0 pH 02/17/2019 7:19 PM [facility] Protein UA Negative Negative mg/dL 02/17/2019 7:19 PM [facility] Glucose UA Negative Negative mg/dL 02/17/2019 7:19 PM [facility] Ketone UA Negative Negative mg/dL 02/17/2019 7:19 PM [facility] Bilirubin UA Negative Negative mg/dL 02/17/2019 7:19 PM [facility] Blood UA Negative Negative 02/17/2019 7:19 PM CDT [facility] Nitrite UA Negative Negative 02/17/2019 7:19 PM T [facility] Leukocyte Esterase Negative Negative 02/17/2019 7:19 PM T [facility] Urobilinogen UA Negative Negative mg/dL 02/17/2019 7:19 PM T [facility] RBC UA 3-5 None Seen, 0-2, 3-5 /HPF 02/17/2019 7:19 PM T [facility] WBC UA 0-5 None Seen, 0-5 /HPF 02/17/2019 7:19 PM T [facility] Squamous Epithelial Cells UA 0-2 None Seen, 0-2 /HPF 02/17/2019 7:19 PM [facility] Transitional Epithelial Cells UA 0-2 None Seen, 0-2 /HPF 02/17/2019 7:19 PM T [facility] Urine URINE SPECIMEN OBTAINED BY CLEAN CATCH PROCEDURE / Unknown Collection / Unknown 02/17/2019 7:00 PM CDT 02/17/2019 7:05 PM CDT Narrative [facility] - 02/17/2019 7:19 PM CDT Americo Urrutia MD LAB - URINALYSIS ORD ERABLES [address] [phone] * (ABNORMAL) VANCOMYCIN LEVEL RANDOM (02/17/2019 6:13 AM CDT) Only the most recent of4 resultswithin the time period is included. Vancomycin Random 49.3(HH) Therapeutic Ranges not established for random specimens mcg/mL 02/17/2019 8:26 AM CDT [facility] Blood BLOOD SPECIMEN / Unknown Lab Venipuncture / Unknown 02/17/2019 6:13 AM CDT 02/17/2019 7:16 AM CDT Americo Urrutia MD LAB - CHEMISTRY ORDE RABLES [address] [phone] * EKG 12-LEAD (02/15/2019 10:35 AM CDT) Ventricular Rate 53 BPM [facility] M[facility] Atrial Rate 53 BPM [facility] P-R Interval 182 ms [facility] QRS Duration ms 84 ms [facility] Q-T Interval ms 358 ms [facility] QTC Calculation (Bezet) 335 ms [facility] Calculated P [place] 44 degrees [facility] Calculated R [place] 28 degrees [facility] Calculated T [place] 43 degrees [facility] Interpretation EKG SINUS BRADYCARDIA OTHERWISE NORMAL ECG NO PREVIOUS ECGS AVAILABLE Confirmed by Eric Martínez ([id number]), editor managing newspaper Juice Arnold ([id number]) on 03/28/2019 9:09:31 PM [facility] MUSE 02/15/2019 10:3 5 AM CDT 03/28/2019 9:09 PM CDT Americo Urrutia MD ECG ORDERABLES Performing Organization Address City/[facility]/ZIP Co de Phone Number [facility] * SODIUM URINE RANDOM (02/13/2019 12:39 AM CDT) Only the most recent of2 resultswithin the time period is included. Sodium Urine 95 Not Established mmol/L 02/13/2019 1:00 AM CDT [facility] Urine URINE SPECIMEN OBTAINED BY CLEAN CATCH PROCEDURE / Unknown Collection / Unknown 02/13/2019 12:39 AM CDT 02/13/2019 12:39 AM CDT Bob Daly MD LAB - URINE CHEMISTR Y ORDERABLES [address] [phone] * UREA NITROGEN URINE RANDOM (02/13/2019 12:39 AM CDT) Urea Nitrogen Random Urine 333 Not Established mg/dL 02/13/2019 12:59 AM CDT [facility] Urine URINE SPECIMEN OBTAINED BY CLEAN CATCH PROCEDURE / Unknown Collection / Unknown 02/13/2019 12:39 AM CDT 02/13/2019 12:39 AM CDT Zita Burciaga MD LAB - URINE CHEMISTR Y ORDERABLES [address] [phone] * CREATININE URINE RANDOM (02/13/2019 12:39 AM CDT) Only the most recent of2 resultswithin the time period is included. Creatinine Urine 70 Not Established mg/dL 02/13/2019 1:09 AM CDT [facility] Comment: Result obtained by dilution. Urine URINE SPECIMEN OBTAINED BY CLEAN CATCH PROCEDURE / Unknown Collection / Unknown 02/13/2019 12:39 AM CDT 02/13/2019 12:39 AM CDT Bob Daly MD LAB - URINE CHEMISTR Y ORDERABLES Performing Organization Address [facility] Co de Phone Number [address] [phone] * US RETROPERITONEAL COMPLETE (02/12/2019 5:45 PM CDT) Anatomical Region Laterality Modality Abdomen Ultrasound 02/12/2019 5:37 PM CDT Impressions 02/13/2019 9:27 AM CDT IMPRESSION: 1.Normal renal size. No evidence of nephrolithiasis, hydronephrosis, or solid renal mass. 2.Incidental finding of cholelithiasis without evidence of cholecystitis. Report dictated by Alcon Ansari DO (vice president supply chain). I, Dr. CHIRAG VANG M.D. have personally [...] dictated by Alcon Ansari DO (vice president supply chain). I, Dr. CHIRAG VANG M.D. have personally reviewed and interpreted this examination/study. This report was electronically signed by CHIRAG VANG M.D. on02/13/2019 9:27 AM . Lucila Mary MD US ORDERABLES * POTASSIUM URINE RANDOM (02/12/2019 3:19 PM CDT) Potassium Urine 24 Not Established mmol/L 02/12/2019 3:57 PM CDT [facility] Urine URINE SPECIMEN OBTAINED BY CLEAN CATCH PROCEDURE / Unknown Collection / Unknown 02/12/2019 3:19 PM CDT 02/12/2019 3:22 PM CDT Lucila Mary MD LAB - URINE CHEMISTR Y ORDERABLES Performing Organization Address [facility]/[place] [address], [facility] [phone] * OSMOLALITY URINE (02/12/2019 3:19 PM CDT) [facility] Osmolality Urine 429 50-1,200 mOsm/kg 02/12/2019 4:07 PM [facility] Urine URINE SPECIMEN OBTAINED BY CLEAN CATCH PROCEDURE / Unknown Collection / Unknown 02/12/2019 3:19 PM CDT 02/12/2019 3:22 PM CDT Lucila Mary MD LAB - URINE CHEMISTR Y ORDERABLES Performing Organization Address [facility] Co de Phone Number [address] [phone] * (ABNORMAL) COMPREHENSIVE METABOLIC PANEL (02/12/2019 1:59 PM CDT) [facility] BUN 53(H) 7 - 26 mg/dL 02/12/2019 2:23 PM [facility] Creatinine 4.3(H) 0.6 - 1.2 mg/dL 02/12/2019 2:23 PM [facility] Sodium 140 136 - 145 mmol/L 02/12/2019 2:23 PM [facility] Potassium 4.6(H) 3.5 - 4.5 mmol/L 02/12/2019 2:23 PM [facility] Chloride 107 98 - 107 mmol/L 02/12/2019 2:23 PM [facility] CO2 24 22 - 29 mmol/L 02/12/2019 2:23 PM [facility] Glucose 112 70 - 115 mg/dL 02/12/2019 2:23 PM [facility] Calcium 9.5 8.4 - 10.2 mg/dL 02/12/2019 2:23 PM [facility] Protein Total 6.5 6.0 - 8.3 g/dL 02/12/2019 2:23 PM [facility] Albumin 3.3(L) 3.4 - 5.0 g/dL 02/12/2019 2:23 PM [facility] Bilirubin Total 0.3 0.2 - 1.2 mg/dL 02/12/2019 2:23 PM [facility] Alkaline Phosphatase 75 40 - 150 Units/L 02/12/2019 2:23 PM [facility] ALT 13 0 - 55 Units/L 02/12/2019 2:23 PM [facility] AST 16 5 - 34 Units/L 02/12/2019 2:23 PM [facility] Anion Gap 14 8 - 18 02/12/2019 2:23 PM [facility] BUN/Creatinine Ratio 12 7 - 23 02/12/2019 2:23 PM [facility] Osmolality Calculated 305(H) 270 - 300 mOsm/kg 02/12/2019 2:23 PM [facility] Albumin/Globulin Ratio 1.0(L) 1.1 - 2.3 02/12/2019 2:23 PM [facility] eGFR 15(L) >60 mL/min/1.7 3 m2 02/12/2019 2:23 PM [facility] Blood BLOOD SPECIMEN / Unknown Venipuncture / Unknown 02/12/2019 1:59 PM CDT 02/12/2019 2:04 PM CDT Karma Parr PA-C LAB - CHEMISTRY ORDERABLES [facility] [address] [place] [address] * VASCULAR LAB ORDER (02/10/2019 3:13 PM [...] placed: Bard power injectable Catheter size: 5 Grenadian Catheter intravascular length: 41 cm Catheter tip [...] None Resident(s): None Advanced practice provider(s): CAMILO Marshlal Pre-procedure diagnosis: Diabetic foot wound Post-procedure diagnosis: [...] fluoroscopically verified and image archived. Catheter placed: [employer] power injectable Catheter size: 5 Grenadian Catheter intravascular length: 41 cm Catheter tip [...] - 6.3 % 01/29/2019 8:08 AM CDT [facility] Estimated Average Glucose 151 mg/dL 01/29/2019 8:08 AM CDT [facility] Comment: HbA1c Interpretation: Treatment target values recommended by ADA and other clinical organizations should be used to evaluate metabolic control in patients. Treatment Target Values: Normal : < 5.7% Pre-diabetes: 5.7-6.4% Diabetes: Equal to or greater than 6.5% Reference: [place] [employer] Standards of Care in Diabetes -2014 In patients 70 years and older consider HbA1c target range of 7.0-7.5% Reference: Diabetes Mellitus in Older People: Position Statement on behalf of the International Association of Gerontology and Geriatrics (IAGG), the Diabetes Working Republican for Older People (EDWPOP), and the International Task Force of Experts in Diabetes. Mehrdad Aleman, et al. J [place] [employer]. 2012 Test results diagnostic of diabetes should be repeated for confirmation. The Sebia Capillary 2 assay for the measurement of HbA1c is a National Glycohemoglobin Standardization Program (NGSP)certified method. Blood BLOOD SPECIMEN / Unknown Lab Venipuncture / Unknown 01/29/2019 6:21 AM CDT 01/29/2019 6:47 AM CDT Melisa Meyers MD LAB - CHEMISTRY J[facility] [address] [place] [address] * XR FOOT LEFT 3VW OR MORE [...] Dictated by Liam Alcala MD (vice president supply chain). Dr. ANA Skinner have personally reviewed and [...] Dictated by Liam Alcala MD (vice president supply chain). Dr. ANA Skinner have personally reviewed and interpreted this examination/study. This report was electronically signed by ANA CARDOSO on 01/30/2019 8:31 AM . Melisa Meyers MD DIAGNOSTIC IMAGING O [place] * CULTURE BLOOD (01/28/2019 3:52 PM CDT) Only the most recent of2 resultswithin the time period is included. Culture No growth day 5 ZIA 02/02/2019 7:30 PM CDT [facility] MICROBI[facility] Blood PERIPHERAL BLOOD / Unknown Venipuncture / Unknown 01/28/2019 3:52 PM CDT 01/28/2019 3:59 PM CDT Melisa Meyers MD LAB - MICROBIOLOGY O RDYARELI Performing Organization Address City/[facility]/ZIP Co de Phone Number [facility] MI[facility]Y [address] [phone] * (ABNORMAL) C-REACTIVE PROTEIN (01/28/2019 3:51 PM CDT) C-Reactive Protein 14.6(H) <=0.5 mg/dL 01/28/2019 4:24 PM CDT [facility] Blood BLOOD SPECIMEN / Unknown Venipuncture / Unknown 01/28/2019 3:51 PM CDT 01/28/2019 4:00 PM CDT Melisa Meyers MD LAB - CHEMISTRY JOVANNI SEARS [address] [phone] * (ABNORMAL) ERYTHROCYTE SEDIMENTATION RATE (01/28/2019 3:51 PM CDT) Erythrocyte Sedimentation Rate Westergren 113(H) 0 - 20 MM/HR 01/28/2019 4:09 PM CDT [facility] Blood BLOOD SPECIMEN / Unknown Venipuncture / Unknown 01/28/2019 3:51 PM CDT 01/28/2019 3:59 PM CDT Melisa Meyers MD LAB - HEMATOLOGY ORD ERALUKE [facility] [address] [place] [address], [facility] [phone] * LACTIC ACID BLOOD (01/28/2019 3:51 PM CDT) Lactic Acid-Stat 1.4 0.5 - 2.0 mmol/L 01/28/2019 4:13 PM CDT [facility] Blood BLOOD SPECIMEN / Unknown Venipuncture / Unknown 01/28/2019 3:51 PM CDT 01/28/2019 4:00 PM CDT Melisa Meyers MD LAB - CHEMISTRY JOVANNI SEARS Performing Organization Address City/[facility]/ZIP Co de Phone Number [address] [address], [facility] [phone] Care Teams International Travel Consultant Relationship Specialty Start Date End Date Miguelito Albrecht MD [address] [place] [phone] PCP - General 01/28/19
--- OUTSIDE RECORDS SUMMARY | 2024-08-15 01:43 | XMS_ITS | Continuity of Care Document ---
Author Organization [facility] Address [address] [place] [address] Phone Care Team Providers Care Layout Technician Name Role Phone Unavailable Unavailable Unavailable Procedures Procedure Date X-ray exam lwr spine, min 4 views Supplemental Report Advance Directives Directive Yes / No Effective Date File Name No Information Encounters Encounter Description Practice Location Reason(s) For Visit Diagnoses Date Provider Providers Copied on Encounter [facility], [address], [place], [place], [id number], [place] tel:[phone] [facility] No Information 3200 6 No Information Family History Family Member Type Diagnosis Age At Onset No Information Payers Payer name Insurance type Covered alliance party ID Authoriza timichelle(s) [employer] [id number] Social History Type Description Quantity Date Captured [...]
--- OUTSIDE RECORDS SUMMARY | 2024-08-15 01:43 | XMS_ITS | Encounter Summary ---
Author Organization [facility] Address [address] [place] [address] Care Team Providers Care Director Health Name Role Phone Miguelito Albrecht MD Primary Care Provider [phone] Ryley Narvaez MD Unavailable [phone] Encounter Details Date Type Department Care Team (Late st Contact Info) Description 12/22/2018 Abstract [facility] at [address] [id number] Sheela Mtz MA Social History Tobacco Use [...] on filedocumented in this encounter Care Teams Director Health Relationship Specialty Start Date End Date Miguelito Albrecht MD [address] [place] [address] PCP - General INTERNAL MEDICINE 12/18/18 Ryley Narvaez MD [id number] [place] [address] EP Bellows Tester CARDIOVASCULAR DISEASE 12/29/18 documented as of this encounter
--- NOTE | 2024-08-15 01:48 | ECG_ITS ---
Test Date: 2024-08-15 01:54:30 Measurements Intervals [place] Rate: 130 P: 49 AL: 147 QRS: -21 QRSD: 88 T: 64 QT: 258 QTc: 380 Interpretive Statements SINUS TACHYCARDIA LOW QRS VOLTAGE IN PRECORDIAL LEADS RIGHT VENTRICULAR CONDUCTION DELAY POSSIBLE ANTERIOR MYOCARDIAL INFARCTION , OF INDETERMINATE AGE Electronically Signed On 08-16-2024 13:54:56 CDT by Salty Webster D.O
[2024-08-15 02:00] LABS: Glucose Point of Care 152 mg/dl (65-105)
--- OUTSIDE RECORDS SUMMARY | 2024-08-15 07:12 | XMS_ITS | CONTINUITY OF CARE DOCUMENT ---
Author Name jose garcia Address Unknown Organization [facility] Address [address] [place] [address] Phone [phone] Care Team Providers Care Salt Washer Name Role Phone Dwight Thornton MD Unavailable [phone] FOUZIA SMITH MD Unavailable FOUZIA SMITH MD [...] In-person encounter Office Visit Dwight Thornton MD [facility] CAD - In-person encounter Office Visit Dwight Thornton MD [facility] Cardiology examinationFatigue - In-person encounter Office Visit Dwight Thornton MD [place] Diabetes, Type 2HyperlipidemiaTobacco abusePalpitationsAbnormal cardiovascular stress [...] Payer name Policy type / Coverage type Western red libertarian ID [place] MED[place] Medicare [id number] ADVANCE DIRECTIVES Name Date DISCUSSED - NO DECISION MADE TREATMENT PLAN Date Name Performer [id number],C, H is updated medication list for this problem includes: Victoza 2-desean 0.6 Mg/0.1 Ml (18 Mg/3 Ml) Pen Injector (Liraglutide) Metformin 500 Mg Tablet (Metformin) Radha Foley [id number],S, T he Patient was reencouraged to stop smoking. Radha Foley [id number],C, H is updated medication list for this problem includes: Atorvastatin 40 Mg Tablet (Atorvastatin) Radha Foley [id number],C,C ardiac cath revealed 50% stenosis of the RCA with normal IFR, heavily calcified. Will continue maximal risk factor modifications. Advised again to quit smoking and to take aspirin 81 mg daily. Pt denies SOB and chest pain. H is updated medication list for this problem includes: Metoprolol Tartrate 25 Mg Tablet (Metoprolol tartrate) Radha Foley [id number],C,T he Patient was reencouraged to stop smoking. Radha Foley [id number],C, H is updated medication list for this problem includes: Victoza 2-desean 0.6 Mg/0.1 Ml (18 Mg/3 Ml) Pen Injector (Liraglutide) Metformin 500 Mg Tablet (Metformin) Radha Foley [id number],C, H is updated medication list for this problem includes: Atorvastatin 40 Mg Tablet (Atorvastatin) Radha Foley [id number],C,T he pt had amputation of the right great toe. He had systemic infections including knee and chest requring surgery. EKG is abnormal with evdience of inferior wall MT, age undetermined. Pt denies SOB and chest pain. Will schedule arterial duplex and venous duplex of the lower extremities, echo, and stress test regadenosen. Radha Foley [id number],C,T he pt had amputation of the right great toe. He had systemic infections including knee and chest requring surgery. EKG is abnormal with evdience of inferior wall MT, age undetermined. Pt denies SOB and chest pain. Will schedule arterial duplex and venous duplex of the lower extremities, echo, and stress test regadenosen. Radha [facility] Cardiology: H is updated medication list for this problem includes: Victoza 2-desean 0.6 Mg/0.1 Ml (18 Mg/3 Ml) Pen Injector (Liraglutide) Metformin 500 Mg Tablet (Metformin) [facility] Card[facility]: T he Patient was reencouraged to stop smoking. Radha [facility] Cardiology: H is updated medication list for this problem includes: Atorvastatin 40 Mg Tablet (Atorvastatin) [facility] Cardiology:Cardiac c ath revealed 50% stenosis of the RCA with normal IFR, heavily calcified. Will continue maximal risk factor modifications. Advised again to quit smoking and to take aspirin 81 mg daily. Pt denies SOB and chest pain. H is updated medication list for this problem includes: Metoprolol Tartrate 25 Mg Tablet (Metoprolol tartrate) [facility] Cardiology:The Patie nt was reencouraged to stop smoking. [facility] Cardiology: H is updated medication list for this problem includes: Victoza 2-desean 0.6 Mg/0.1 Ml (18 Mg/3 Ml) Pen Injector (Liraglutide) Metformin 500 Mg Tablet (Metformin) [facility] Cardiology: H is updated medication list for this problem includes: Atorvastatin 40 Mg Tablet (Atorvastatin) [facility] Cardiology:The pt cummins d amputation of the right great toe. He had systemic infections including knee and chest requring surgery. EKG is abnormal with evdience of inferior wall MT, age undetermined. Pt denies SOB and chest pain. Will schedule arterial duplex and venous duplex of the lower extremities, echo, and stress test regadenosen. Radha Foley Cardiology:The pt cummins d amputation of the right great toe. He had systemic infections including knee and chest requring surgery. EKG is abnormal with evdience of inferior wall MT, age undetermined. Pt denies SOB and chest [...]
--- OUTSIDE RECORDS SUMMARY | 2024-08-15 07:12 | XMS_ITS | Clinical Summary ---
Author Organization [facility] Address [address] [place] [address] Care Team Providers Care Scow Captain Name Role Phone Miguelito Albrecht MD Primary Care Provider [phone] HusRyley garcia MD Unavailable [phone] Allergies No known active allergies Medications glipiZIDE [...] age to complete this topic Care Teams Scow Captain Relationship Specialty Start Date End Date Miguelito Albrecht MD [address] [place] [address] PCP - General INTERNAL MEDICINE 12/18/18 Ryley Narvaez MD [address] [place] [address] EP Tray Packer CARDIOVASCULAR DISEASE 12/29/18
--- OUTSIDE RECORDS SUMMARY | 2024-08-15 07:12 | XMS_ITS | Continuity of Care Document ---
Author Organization [facility] Address [address] [place] [address] Phone Care Team Providers Care Telecommunications Network Planner Name Role Phone Unavailable Unavailable Unavailable Procedures Procedure Date X-ray exam lwr spine, min 4 views Supplemental Report Advance Directives Directive Yes / No Effective Date File Name No Information Encounters Encounter Description Practice Location Reason(s) For Visit Diagnoses Date Provider Providers Copied on Encounter [facility], [address], [place], [place], [id number], [place] tel:[phone] [facility] No Information 3200 6 No Information Family History Family Member Type Diagnosis Age At Onset No Information Payers Payer name Insurance type Covered democrat ID Authoriza timichelle(s) [employer] [id number] Social History Type Description Quantity Date Captured [...]
--- OUTSIDE RECORDS SUMMARY | 2024-08-15 07:13 | XMS_ITS | Clinical Summary ---
Author Organization [facility] Address [address] [place] [address] Care Team Providers Care Drug And Alcohol Treatment Specialist Name Role Phone Miguelito Albrecht MD Primary Care Provider Source Comments [facility],non-owned Affiliates and Associated Physician Practices is amultiple site organization consisting of ambulatory clinics and hospital sitesin [place], [place] and [place]. This disclosure is being madepursuant to the Care Everywhere program and may not contain all information available regarding this patient. Last updated 18.[facility] Allergies No known active allergies Medications * [...] Comments Blood Pressure 148/81 07/01/2019 12:26 PM CLERK GENERAL Pulse 80 07/01/2019 12:26 PM CLERK GENERAL Temperature 36.2 C (97.1 F) 07/01/2019 12:26 PM CLERK GENERAL Respiratory Rate 16 04/29/2019 4:12 AM CLERK GENERAL Oxygen Saturation 98% 07/01/2019 12:26 PM CLERK GENERAL Inhaled Oxygen Concentration 40% 04/27/2019 1 :45 PM CLERK GENERAL Weight 115.2 kg (254 lb) 07/01/2019 12:26 PM CLERK GENERAL Height 188 cm (6' 2 ) 07/01/2019 12:26 PM CLERK GENERAL Body Mass Index 32.61 07/01/2019 12:26 PM CLERK GENERAL Plan of Treatment Health Maintenance Due Date [...] PANEL (CALCIUM TOTAL) Routine 04/29/2019 5:22 AM CLERK GENERAL Diabetic foot infection (HCC) HEMOGLOBIN A1C Routine 01/29/2019 6:21 AM CDT from Last 3 Months or Most Recently Relevant to Health Maintenance Results * (ABNORMAL) BASIC METABOLIC PANEL (CALCIUM TOTAL) (04/29/2019 5:22 AM CLERK GENERAL) BUN 21 7 - 26 mg/dL 04/29/2019 5:55 AM [facility] Creatinine 0.9 0.6 - 1.2 mg/dL 04/29/2019 5:55 AM [facility] Sodium 140 136 - 145 mmol/L 04/29/2019 5:55 AM [facility] Potassium 4.1 3.5 - 4.5 mmol/L [...] Unknown Venipuncture / Unknown 04/29/2019 5:22 AM [facility] 04/29/2019 5:27 AM [facility] Diana Aguila DO LAB - CHEMISTRY ORDERABLES Performing Organization Address City/State/[facility] Co de Phone Number [address] [phone] * (ABNORMAL) HEMOGLOBIN A1C (01/29/2019 6:21 AM CDT) Hemoglobin A1c 6.9(H) 4.4 - 6.3 % 01/29/2019 8:08 AM [facility] Estimated Average Glucose 151 mg/dL 01/29/2019 8:08 AM [facility] Comment: HbA1c Interpretation: Treatment target values recommended by ADA and other clinical organizations should be used to evaluate metabolic control in patients. Treatment Target Values: Normal : < 5.7% Pre-diabetes: 5.7-6.4% Diabetes: Equal to or greater than 6.5% Reference: [place] Diabetes Association Standards of Care in Diabetes -2014 In patients 70 years and older consider HbA1c target range of 7.0-7.5% Reference: Diabetes Mellitus in Older People: Position Statement on behalf of the International Association of Gerontology and Geriatrics (IAGG), the Diabetes Working Green Party for Older People (EDWPOP), and the International Task Force of Experts in Diabetes. Mehrdad Aleman et al. J [place] Medical Directors Association. 2012 Test results diagnostic of diabetes should be repeated for confirmation. The Sebia Capillary 2 assay for the measurement of HbA1c is a National Glycohemoglobin Standardization Program (NGSP)certified method. Blood BLOOD SPECIMEN / Unknown Lab Venipuncture / Unknown 01/29/2019 6:21 AM CDT 01/29/2019 6:47 AM CDT Melisa Meyers MD LAB - CHEMISTRY JOVANNI SEARS [facility] Organization Address City/State/[facility] Co de Phone Number [address] [phone] from Last 3 Months or Most Recently [...] 5:44 PM 02/04/2019 6:59 PM Care Teams Drug And Alcohol Treatment Specialist Relationship Specialty Start Date End Date Miguelito Albrecht MD [address] [place], [place] [phone] PCP - General 01/28/19
--- OUTSIDE RECORDS SUMMARY | 2024-08-15 07:13 | XMS_ITS | Referral Summary ---
Author Organization [facility] Address [address] [place] [address] Care Team Providers Care Director Of Ancillary Services Name Role Phone Miguelito Albrecht MD Primary Care Provider Source Comments [facility],non-owned Affiliates and Associated Physician Practices is amultiple site organization consisting of ambulatory clinics and hospital sitesin [place], [place], [place] and [place]. This disclosure is being madepursuant to the Care Everywhere program and may not contain all information available regarding this patient. Last updated 18.[facility] Allergies No known active allergies Medications * [...] Comments Blood Pressure 148/81 07/01/2019 12:26 PM FERTILIZER SUPERVISOR Pulse 80 07/01/2019 12:26 PM FERTILIZER SUPERVISOR Temperature 36.2 C (97.1 F) 07/01/2019 12:26 PM [facility]IL[employer] SUPERVISOR Respiratory Rate 16 04/29/2019 4:12 AM [facility] [employer]PERVIS[facility] Oxygen Saturation 98% 07/01/2019 12:26 PM [employer]ILIZER SUPERVISOR Inhaled Oxygen Concentration 40% 04/27/2019 1:45 PM FERTILIZER SUPERVISOR Weight 115.2 kg (254 lb) 07/01/2019 12:26 PM FERTILIZER SUPERVISOR Height 188 cm (6' 2 ) 07/01/2019 12:26 PM [facility]IL[employer]ER SUPERVISOR Body Mass Index 32.61 07/01/2019 12:26 PM FERTILIZER SUPERVISOR Functional Status Functional Status Response Date of [...] PANEL (CALCIUM TOTAL) Routine 04/29/2019 5:22 AM FERTILIZER SUPERVISOR Diabetic foot infection (HCC) HEMOGLOBIN A1C Routine 01/29/2019 6:21 AM CDT from Last 3 Months or Most Recently Relevant to Health Maintenance Results * (ABNORMAL) BASIC METABOLIC PANEL (CALCIUM TOTAL) (04/29/2019 5:22 AM FERTILIZER SUPERVISOR) BUN 21 7 - 26 mg/dL 04/29/2019 5:55 AM [facility] Creatinine 0.9 0.6 - 1.2 mg/dL 04/29/2019 5:55 AM [facility] Sodium 140 136 - 145 mmol/L 04/29/2019 5:55 AM [facility] Potassium 4.1 3.5 - 4.5 mmol/L 04/29/2019 5:55 AM [facility] Chloride 103 98 - 107 mmol/L 04/29/2019 5:55 AM [facility] CO2 29 22 - 29 mmol/L 04/29/2019 5:55 AM [facility] Glucose 151(H) 70 - 115 mg/dL 04/29/2019 5:55 AM [facility] Calcium 9.6 8.4 - 10.2 mg/dL 04/29/2019 5:55 AM [facility] Anion Gap 12 8 - 18 04/29/2019 5:55 AM [facility] BUN/Creatinine Ratio 23 7 - 23 04/29/2019 5:55 AM [facility] Osmolality Calculated 296 270 - 300 mOsm/kg 04/29/2019 5:55 AM [facility] eGFR >60 >60 mL/min/1.7 3 m2 04/29/2019 5:55 AM [facility] Blood BLOOD SPECIMEN / Unknown Venipuncture / Unknown 04/29/2019 5:22 AM F[employer]IL[employer] SUPERVISOR 04/29/2019 5:27 AM [facility] Diana Aguila DO LAB - CHEMISTRY ORDERABLES [facility] [address] [place] [address] * (ABNORMAL) HEMOGLOBIN A1C (01/29/2019 6:21 AM CDT) Hemoglobin A1c 6.9(H) 4.4 - 6.3 % 01/29/2019 8:08 AM CDT [facility] Estimated Average Glucose 151 mg/dL 01/29/2019 8:08 AM CDT [facility] Comment: HbA1c Interpretation: Treatment target values recommended by ADA and other clinical organizations should be used to evaluate metabolic control in patients. Treatment Target Values: Normal : < 5.7% Pre-diabetes: 5.7-6.4% Diabetes: Equal to or greater than 6.5% Reference: [place] Diabetes Association Standards of Care in Diabetes -2014 In patients 70 years and older consider HbA1c target range of 7.0-7.5% Reference: Diabetes Mellitus in Older People: Position Statement on behalf of the International Association of Gerontology and Geriatrics (IAGG), the Diabetes Working Republican for Older People (EDWPOP), and the International Task Force of Experts in Diabetes. Mehrdad Aleman, et al. J [place] Medical Directors Association. 2012 Test results diagnostic of diabetes should be repeated for confirmation. The Sebia Capillary 2 assay for the measurement of HbA1c is a National Glycohemoglobin Standardization Program (NGSP)certified method. Blood BLOOD SPECIMEN / Unknown Lab Venipuncture / Unknown 01/29/2019 6:21 AM CDT 01/29/2019 6:47 AM CDT Melisa Meyers MD LAB - CHEMISTRY JOVANNI SEARS [facility] Organization Address City/State/ZIP Co de Phone Number [address] [phone] from Last 3 Months or Most Recently [...] 5:44 PM 02/04/2019 6:59 PM Care Teams Director Of Ancillary Services Relationship Specialty [place] [address] [place] [phone] PCP - General 01/28/19
--- OUTSIDE RECORDS SUMMARY | 2024-08-15 07:13 | XMS_ITS | Patient Health Summary ---
Author Organization [facility] Address [address] [place] [address] Care Team Providers Care Model Making Supervisor Name Role Phone Miguelito Albrecht MD Primary Care Provider Note from [facility],non-owned Affiliates and Associated Physician Practices is amultiple site organization consisting of ambulatory clinics and hospital sitesin [place], [place] and [place]. This disclosure is being madepursuant to the Care Everywhere program and may not contain all information available regarding this patient. Last updated 18.[facility] Allergies No known active allergies Medications [...] Comments Blood Pressure 148/81 07/01/2019 12:26 PM SCENE PAINTER Pulse 80 07/01/2019 12:26 PM SCENE PAINTER Temperature 36.2 C (97.1 F) 07/01/2019 12:26 PM SCENE PAINTER Respiratory Rate 16 04/29/2019 4:12 AM SCENE PAINTER Oxygen Saturation 98% 07/01/2019 12:26 PM SCENE PAINTER Inhaled Oxygen Concentration 40% 04/27/2019 1 :45 PM SCENE PAINTER Weight 115.2 kg (254 lb) 07/01/2019 12:26 PM SCENE PAINTER Height 188 cm (6' 2 ) 07/01/2019 12:26 PM SCENE PAINTER Body Mass Index 32.61 07/01/2019 12:26 PM SCENE PAINTER Procedures * CARDIAC EKG ORDER(Performed 05/14/2019) * [...] * CARDIAC EKG ORDER (05/14/2019 10:01 AM SCENE PAINTER) Only the most recent of2 resultswithin the time period is included. Narrative 05/14/2019 10:01 AM SCENE PAINTER Ordered by an unspecified provider. Scanned Document CARDIAC SERVICES ORD ERABLES * (ABNORMAL) GLUCOSE - POINT OF CARE (04/29/2019 8:02 AM SCENE PAINTER) Only the most recent of80 resultswithin the time period is included. Glucose WB/POC 130(H) 70 - 115 mg/dL 04/29/2019 8:05 AM SCENE PAINTER [facility] Specimen Type Arterial/C apillary 04/29/2019 8:05 AM [facility] Comment:PROFESSOR OF ART: Coty raymundo Blood BLOOD SPECIMEN / Unknown 04/29/2019 8:02 AM SCENE PAINTER 04/29/2019 8:05 AM SCENE PAINTER Hiwot William MD LAB - POINT OF CARE ORDERABLES [facility] [address] [place] [address] * (ABNORMAL) CBC W/O DIFFERENTIAL (04/29/2019 5:22 AM SCENE PAINTER) Only the most recent of8 resultswithin the time period is included. WBC 7.5 3.5 - 10.5 10 3/uL 04/29/2019 5:29 AM [facility] RBC 4.07(L) 4.30 - 5.70 10 6/uL 04/29/2019 5:29 AM [facility] Hemoglobin 12.4(L) 13.5 - 17.5 g/dL 04/29/2019 5:29 AM [facility] Hematocrit 37.4(L) 39.0 - 50.0 % 04/29/2019 5:29 AM [facility] MCV 91.9 81.0 - 97.0 fL 04/29/2019 5:29 AM [facility] MCH 30.5 28.0 - 34.0 pg 04/29/2019 5:29 AM [facility] MCHC 33.2 32.0 - 36.0 g/dL 04/29/2019 5:29 AM [facility] Platelet Count 208 150 - 400 10 3/uL 04/29/2019 5:29 AM [facility] RDW-SD 43.8 36.0 - 50.0 fL 04/29/2019 5:29 AM [facility] RDW-CV 13.1 11.2 - 14.8 % 04/29/2019 5:29 AM [facility] MPV 8.6(L) 9.3 - 12.8 fL 04/29/2019 5:29 AM [facility] nRBC Absolute 0.00 0 10 3/uL 04/29/2019 5:29 AM [facility] nRBC Auto 0.0 0 /100 WBC 04/29/2019 5:29 AM [facility] Blood BLOOD SPECIMEN / Unknown Venipuncture / Unknown 04/29/2019 5:22 AM SCENE PAINTER 04/29/2019 5:27 AM SCENE PAINTER Diana Elys Ayla PURCELL LAB - HEMATOLOG Y ORDERABLES [facility] [address] [place] [address] * (ABNORMAL) BASIC METABOLIC PANEL (CALCIUM TOTAL) (04/29/2019 5:22 AM SCENE PAINTER) Only the most recent of13 resultswithin the time period is included. BUN 21 7 - 26 mg/dL 04/29/2019 5:55 AM [facility] Creatinine 0.9 0.6 - 1.2 mg/dL 04/29/2019 5:55 AM [facility] Sodium 140 136 - 145 mmol/L 04/29/2019 5:55 AM [facility] Potassium 4.1 3.5 - 4.5 mmol/L 04/29/2019 5:55 AM [facility] Chloride 103 98 - 107 mmol/L 04/29/2019 5:55 AM [facility] CO2 29 22 - 29 mmol/L 04/29/2019 5:55 AM [facility] Glucose 151(H) 70 - 115 mg/dL 04/29/2019 5:55 AM [facility] Calcium 9.6 8.4 - 10.2 mg/dL 04/29/2019 5:55 AM [facility] Anion Gap 12 8 - 18 04/29/2019 5:55 AM [facility] BUN/Creatinine Ratio 23 7 - 23 04/29/2019 5:55 AM [facility] Osmolality Calculated 296 270 - 300 mOsm/kg 04/29/2019 5:55 AM [facility] eGFR >60 >60 mL/min/1.7 3 m2 04/29/2019 5:55 AM [facility] Blood BLOOD SPECIMEN / Unknown Venipuncture / Unknown 04/29/2019 5:22 AM SCENE PAINTER 04/29/2019 5:27 AM SCENE PAINTER Diana Aguila DO LAB - CHEMISTRY ORDERABLES Performing Organization Address City/[facility]/[place] [address], [facility] [phone] * PHOSPHORUS BLOOD (04/29/2019 5:22 AM SCENE PAINTER) Only the most recent of2 resultswithin the time period is included. Phosphorus 3.4 2.3 - 4.7 mg/dL 04/29/2019 5:55 AM SCENE PAINTER [facility] Blood BLOOD SPECIMEN / Unknown Venipuncture / Unknown 04/29/2019 5:22 AM SCENE PAINTER 04/29/2019 5:27 AM SCENE PAINTER Diana Aguila DO LAB - CHEMISTRY ORDERABLES Performing Organization Address [facility] Co de Phone Number [address] [phone] * MAGNESIUM BLOOD (04/29/2019 5:22 AM SCENE PAINTER) Only the most recent of3 resultswithin the time period is included. Magnesium 1.6 1.6 - 2.6 mg/dL 04/29/2019 5:55 AM SCENE PAINTER [facility] Blood BLOOD SPECIMEN / Unknown Venipuncture / Unknown 04/29/2019 5:22 AM SCENE PAINTER 04/29/2019 5:27 AM SCENE PAINTER Diana Patelalisonwyatt DO LAB - CHEMISTRY ORDERABLES Performing Organization Address City/[facility] [place] [address], [facility] [phone] * Peripheral Nerve Block (04/27/2019 3:11 PM SCENE PAINTER) Narrative Lorenzo Galvan MD - 04/27/2019 3:11 PM SCENE PAINTER Lorenzo Galvan MD 04/27/2019 3:13 PM Peripheral [...] (ABNORMAL) CULTURE WOUND+GRAM STAIN (04/27/2019 12:34 PM SCENE PAINTER) Only the most recent of2 resultswithin the time period is included. Culture Light Enterobacter cloacae complex(A) ZIA 04/29/2019 10:32 AM [facility] Culture Rare Staphylococcus aureus methicillin-resi stant (MRSA)(A) ZIA 04/29/2019 10:32 AM [facility] Comment:Staphylococcus aureu s methicillin-resistant (MRSA) detected by penicillin binding protein immunoassay. Contact precautions required. Conventional antibiotic susceptibility testing to follow. Culture Rare normal skin ryan ZIA 04/29/2019 10:32 AM [facility] Gram Stain No organisms seen 04/29/2019 10:32 AM [facility] Microbiology ENTIRE FOOT / Unknown Collection / Unknown 04/27/2019 12:34 PM SCENE PAINTER 04/27/2019 1:44 PM SCENE PAINTER [facility] MICROBIOLOGY - 04/29/2019 10:32 AM [facility] Methicillin-resistant Staphylococci (MRSA) are resistant to [...] Staphylococcus aureus methicillin-resistant (MRSA) Inducible Clindamycin Resistance IZA NEG ug/mL: Neg Staphylococcus aureus methicillin-resistant (MRSA) [...] Hiwot William MD LAB - MICROBIOLOGY ORDERABLES [facility] [address] [place] [address], [facility] [phone] * CULTURE ANAEROBE (04/27/2019 12:34 PM SCENE PAINTER) Culture No anaerobic organisms isolated ZIA 05/04/2019 12:44 PM SCENE PAINTER [facility]CRO[facility] Microbiology ENTIRE FOOT / Unknown Collection / Unknown 04/27/2019 12:34 PM SCENE PAINTER 04/27/2019 1:44 PM SCENE PAINTER Hiwot William MD LAB - MICROBIOLOGY ORDERABLES Performing Organization Address City/[facility]/ZIP Co de Phone Number [facility]CROBI[facility] [address] [place] [address], [facility] [phone] * (ABNORMAL) CBC WITH DIFFERENTIAL (04/24/2019 12:39 PM SCENE PAINTER) Only the most recent of15 resultswithin the time period is included. WBC 7.4 3.5 - 10.5 10 3/uL 04/24/2019 12:57 PM [facility] RBC 4.25(L) 4.30 - 5.70 10 6/uL 04/24/2019 12:57 PM [facility] Hemoglobin 13.0(L) 13.5 - 17.5 g/dL 04/24/2019 12:57 PM [facility] Hematocrit 39.0 39.0 - 50.0 % 04/24/2019 12:57 PM [facility] MCV 91.8 81.0 - 97.0 fL 04/24/2019 12:57 PM [facility] MCH 30.6 28.0 - 34.0 pg 04/24/2019 12:57 PM [facility] MCHC 33.3 32.0 - 36.0 g/dL 04/24/2019 12:57 PM [facility] Platelet Count 214 150 - 400 10 3/uL 04/24/2019 12:57 PM [facility] RDW-SD 43.5 36.0 - 50.0 fL 04/24/2019 12:57 PM [facility] RDW-CV 13.1 11.2 - 14.8 % 04/24/2019 12:57 PM [facility] MPV 9.0(L) 9.3 - 12.8 fL 04/24/2019 12:57 PM [facility] nRBC Absolute 0.00 0 10 3/uL 04/24/2019 12:57 PM [facility] nRBC Auto 0.0 0 /100 WBC 04/24/2019 12:57 PM [facility] Neutrophils % 70.4(H) 35.0 - 70.0 % 04/24/2019 12:57 PM [facility] Lymphocytes % 19.4(L) 19.7 - 55.1 % 04/24/2019 12:57 PM [facility] Monocytes % 6.9 3.0 - 15.0 % 04/24/2019 12:57 PM [facility] Eosinophils % 2.2 0.0 - 6.0 % 04/24/2019 12:57 PM [facility] Basophil % 0.7 0.0 - 1.5 % 04/24/2019 12:57 PM [facility] Neutrophils Absolute 5.3 1.6 - 7.0 10 3/uL 04/24/2019 12:57 PM [facility] Lymphocyte Absolute 1.4 0.8 - 2.9 10 3/uL 04/24/2019 12:57 PM [facility] Monocytes Absolute 0.51 0.14 - 0.66 10 3/uL 04/24/2019 12:57 PM [facility] Eosinophils Absolute 0.16 0.00 - 0.45 10 3/uL 04/24/2019 12:57 PM [facility] Basophils Absolute 0.05 0.00 - 0.06 10 3/uL 04/24/2019 12:57 PM [facility] Immature Granulocytes % 0.4 0.0 - 1.0 % 04/24/2019 12:57 PM [facility] Blood BLOOD SPECIMEN / Unknown Lab Venipuncture / Unknown 04/24/2019 12:39 PM SCENE PAINTER 04/24/2019 12:52 PM SCENE PAINTER Hiwot William MD LAB - HEMATOLOGY OR DERABLES Performing Organization Address [facility]/ZIP Co de Phone Number [address] [phone] * (ABNORMAL) VANCOMYCIN LEVEL TROUGH (04/24/2019 12:39 PM SCENE PAINTER) Only the most recent of6 resultswithin the time period is included. Pathologist [facility] Vancomycin Trough <3.0(L) 10.0 - 20.0 mcg/mL 04/24/2019 1:19 PM SCENE PAINTER [facility] Blood BLOOD SPECIMEN / Unknown Lab Venipuncture / Unknown 04/24/2019 12:39 PM SCENE PAINTER 04/24/2019 12:52 PM SCENE PAINTER Hiwot William MD LAB - CHEMISTRY ORD ERABLES Performing Organization Address [facility] Co de Phone Number [address] [phone] * (ABNORMAL) RENAL FUNCTION PANEL (02/25/2019 12:14 PM CDT) Only the most recent of7 resultswithin the time period is included. BUN 70(H) 7 - 26 mg/dL 02/25/2019 1:39 PM [facility] Creatinine 4.6(H) 0.6 - 1.2 mg/dL 02/25/2019 1:39 PM [facility] Sodium 141 136 - 145 mmol/L 02/25/2019 1:39 PM [facility] Potassium 4.1 3.5 - 4.5 mmol/L 02/25/2019 1:39 PM [facility] Chloride 101 98 - 107 mmol/L 02/25/2019 1:39 PM [facility] CO2 26 22 - 29 mmol/L 02/25/2019 1:39 PM [facility] Glucose 151(H) 70 - 115 mg/dL 02/25/2019 1:39 PM [facility] Albumin 4.3 3.4 - 5.0 g/dL 02/25/2019 1:39 PM [facility] Calcium 10.2 8.4 - 10.2 mg/dL 02/25/2019 1:39 PM [facility] Phosphorus 5.4(H) 2.3 - 4.7 mg/dL 02/25/2019 1:39 PM [facility] Anion Gap 18 8 - 18 02/25/2019 1:39 PM [facility] BUN/Creatinine Ratio 15 7 - 23 02/25/2019 1:39 PM [facility] Osmolality Calculated 315(H) 270 - 300 mOsm/kg 02/25/2019 1:39 PM [facility] eGFR 14(L) >60 mL/min/1.7 3 m2 02/25/2019 1:39 PM [facility] Blood BLOOD SPECIMEN / Unknown Lab Venipuncture / Unknown 02/25/2019 12:14 PM CDT 02/25/2019 12:58 PM T Dianelys Lisa MD LAB - CHEMISTRY JOVANNI SEARS [facility] Organization Address City/State/ZIP Co de Phone Number [address] [phone] * URINALYSIS W/MICROSCOPIC NO CULTURE (02/17/2019 7:00 PM CDT) Only the most recent of2 resultswithin the time period is included. Color UA Straw Straw, Yellow, Colorless 02/17/2019 7:19 PM [facility] Clarity UA Clear Clear, Slt Cloudy 02/17/2019 7:19 PM [facility] Specific Wade UA 1.009 1.005 - 1.030 02/17/2019 7:19 PM [facility] pH UA 6.0 5.0 - 8.0 pH 02/17/2019 7:19 PM [facility] Protein UA Negative Negative mg/dL 02/17/2019 7:19 PM [facility] Glucose UA Negative Negative mg/dL 02/17/2019 7:19 PM [facility] Ketone UA Negative Negative mg/dL 02/17/2019 7:19 PM [facility] Bilirubin UA Negative Negative mg/dL 02/17/2019 7:19 PM [facility] Blood UA Negative Negative 02/17/2019 7:19 [...] None Seen, 0-2 /HPF 02/17/2019 7:19 PM [facility] Transitional Epithelial Cells UA 0-2 None Seen, 0-2 /HPF 02/17/2019 7:19 PM T [facility] Urine URINE SPECIMEN OBTAINED BY CLEAN CATCH PROCEDURE / Unknown Collection / Unknown 02/17/2019 7:00 PM CDT 02/17/2019 7:05 PM CDT Narrative [facility] - 02/17/2019 7:19 PM CDT Americo Urrutia MD LAB - URINALYSIS ORD ERABLES [address] [phone] * (ABNORMAL) VANCOMYCIN LEVEL RANDOM (02/17/2019 6:13 AM CDT) Only the most recent of4 resultswithin the time period is included. Vancomycin Random 49.3(HH) Therapeutic Ranges not established for random specimens mcg/mL 02/17/2019 8:26 AM CDT [facility] Blood BLOOD SPECIMEN / Unknown Lab Venipuncture / Unknown 02/17/2019 6:13 AM CDT 02/17/2019 7:16 AM CDT Americo Urrutia MD LAB - CHEMISTRY ORDE RABLES [address] [phone] * EKG 12-LEAD (02/15/2019 10:35 AM CDT) Ventricular Rate 53 BPM [facility] MUSE Atrial Rate 53 BPM [facility] MUSE P-R Interval 182 ms [facility] MUSE QRS Duration ms 84 ms [facility] MUSE Q-T Interval ms 358 ms [facility] MUSE QTC Calculation (Bezet) 335 ms [facility] MUSE Calculated P [place] 44 degrees [facility] MUSE Calculated R [place] 28 degrees [facility] MUSE Calculated T [place] 43 degrees [facility] MUSE Interpretation EKG SINUS BRADYCARDIA OTHERWISE NORMAL ECG NO PREVIOUS ECGS AVAILABLE Confirmed by Eric Martínez ([id number]), supervising editor news reel Juice Arnold ([id number]) on 03/28/2019 9:09:31 PM [facility] MUSE 02/15/2019 10:3 5 AM CDT 03/28/2019 9:09 PM CDT Americo Urrutia MD ECG ORDERABLES Performing Organization Address City/[facility]/ZIP Co de Phone Number [facility] * SODIUM URINE RANDOM (02/13/2019 12:39 AM CDT) Only the most recent of2 resultswithin the time period is included. Sodium Urine 95 Not Established mmol/L 02/13/2019 1:00 AM CDT [facility] Urine URINE SPECIMEN OBTAINED BY CLEAN CATCH PROCEDURE / Unknown Collection / Unknown 02/13/2019 12:39 AM CDT 02/13/2019 12:39 AM CDT Bob Daly MD LAB - URINE CHEMISTR Y ORDERABLES [address] [phone] * UREA NITROGEN URINE RANDOM (02/13/2019 12:39 AM CDT) Urea Nitrogen Random Urine 333 Not Established mg/dL 02/13/2019 12:59 AM CDT [facility] Urine URINE SPECIMEN OBTAINED BY CLEAN CATCH PROCEDURE / Unknown Collection / Unknown 02/13/2019 12:39 AM CDT 02/13/2019 12:39 AM CDT Zita Burciaga MD LAB - URINE CHEMISTR Y ORDERABLES [address] [phone] * CREATININE URINE RANDOM (02/13/2019 12:39 AM [...] URINE CHEMISTR Y ORDERABLES Performing Organization Address [facility] Co de Phone Number [address] [phone] * US RETROPERITONEAL COMPLETE (02/12/2019 5:45 PM CDT) Anatomical Region Laterality Modality Abdomen Ultrasound 02/12/2019 5:37 PM CDT Impressions 02/13/2019 9:27 AM CDT IMPRESSION: 1.Normal renal size. No evidence of nephrolithiasis, hydronephrosis, or solid renal mass. 2.Incidental finding of cholelithiasis without evidence of cholecystitis. Report dictated by Alcon Ansari DO (residential child care counselor). I, Dr. CHIRAG VANG M.D. have personally [...] Report dictated by Alcon Ansari DO (residential child care counselor). I, Dr. CHIRAG VANG M.D. have personally reviewed and interpreted this examination/study. This report was electronically signed by CHIRAG VANG M.D. on02/13/2019 9:27 AM . Lucila Mary MD US ORDERABLES * POTASSIUM URINE RANDOM (02/12/2019 3:19 PM CDT) Potassium Urine 24 Not Established mmol/L 02/12/2019 3:57 PM CDT [facility] Urine URINE SPECIMEN OBTAINED BY CLEAN CATCH PROCEDURE / Unknown Collection / Unknown 02/12/2019 3:19 PM CDT 02/12/2019 3:22 PM CDT Lucila Mary MD LAB - URINE CHEMISTR Y ORDERABLES Performing Organization Address [facility]/[place] [address], [facility] [phone] * OSMOLALITY URINE (02/12/2019 3:19 PM CDT) [facility] Osmolality Urine 429 50-1,200 mOsm/kg 02/12/2019 4:07 PM [facility] Urine URINE SPECIMEN OBTAINED BY CLEAN CATCH PROCEDURE / Unknown Collection / Unknown 02/12/2019 3:19 PM CDT 02/12/2019 3:22 PM CDT Lucila Mary MD LAB - URINE CHEMISTR Y ORDERABLES Performing Organization Address [facility] Co de Phone Number [address] [phone] * (ABNORMAL) COMPREHENSIVE METABOLIC PANEL (02/12/2019 1:59 PM CDT) [facility] BUN 53(H) 7 - 26 mg/dL 02/12/2019 2:23 PM [facility] Creatinine 4.3(H) 0.6 - 1.2 mg/dL 02/12/2019 2:23 PM [facility] Sodium 140 136 - 145 mmol/L 02/12/2019 2:23 PM [facility] Potassium 4.6(H) 3.5 - 4.5 mmol/L 02/12/2019 2:23 PM [facility] Chloride 107 98 - 107 mmol/L 02/12/2019 2:23 PM [facility] CO2 24 22 - 29 mmol/L 02/12/2019 2:23 PM [facility] Glucose 112 70 - 115 mg/dL 02/12/2019 2:23 PM [facility] Calcium 9.5 8.4 - 10.2 mg/dL 02/12/2019 2:23 PM [facility] Protein Total 6.5 6.0 - 8.3 g/dL 02/12/2019 2:23 PM [facility] Albumin 3.3(L) 3.4 - 5.0 g/dL 02/12/2019 2:23 PM [facility] Bilirubin Total 0.3 0.2 - 1.2 mg/dL 02/12/2019 2:23 PM [facility] Alkaline Phosphatase 75 40 - 150 Units/L 02/12/2019 2:23 PM [facility] ALT 13 0 - 55 Units/L 02/12/2019 2:23 PM [facility] AST 16 5 - 34 Units/L 02/12/2019 2:23 PM [facility] Anion Gap 14 8 - 18 02/12/2019 2:23 PM [facility] BUN/Creatinine Ratio 12 7 - 23 02/12/2019 2:23 PM [facility] Osmolality Calculated 305(H) 270 - 300 mOsm/kg 02/12/2019 2:23 PM [facility] Albumin/Globulin Ratio 1.0(L) 1.1 - 2.3 02/12/2019 2:23 PM [facility] eGFR 15(L) >60 mL/min/1.7 3 m2 02/12/2019 2:23 PM [facility] Blood BLOOD SPECIMEN / Unknown Venipuncture / Unknown 02/12/2019 1:59 PM CDT 02/12/2019 2:04 PM CDT Karma Parr PA-C LAB - CHEMISTRY ORDERABLES [facility] [address] [place] [address] * VASCULAR LAB ORDER (02/10/2019 3:13 PM [...] placed: Bard power injectable Catheter size: 5 Lithuanian Catheter intravascular length: 41 cm Catheter tip [...] fluoroscopically verified and image archived. Catheter placed: Propable power injectable Catheter size: 5 Lithuanian Catheter intravascular length: 41 cm Catheter tip [...] 8:08 AM CDT [facility] Estimated Average Glucose 151 mg/dL 01/29/2019 8:08 AM CDT [facility] Comment: HbA1c Interpretation: Treatment target values recommended by ADA and other clinical organizations should be used to evaluate metabolic control in patients. Treatment Target Values: Normal : < 5.7% Pre-diabetes: 5.7-6.4% Diabetes: Equal to or greater than 6.5% Reference: [place] [employer] Standards of Care in Diabetes -2014 In patients 70 years and older consider HbA1c target range of 7.0-7.5% Reference: Diabetes Mellitus in Older People: Position Statement on behalf of the International Association of Gerontology and Geriatrics (IAGG), the Diabetes Working Constitution Party for Older People (EDWPOP), and the International Task Force of Experts in Diabetes. Mehrdad Aleman, et al. J [place] [employer]. 2012 Test results diagnostic of diabetes should be repeated for confirmation. The Sebia Capillary 2 assay for the measurement of HbA1c is a National Glycohemoglobin Standardization Program (NGSP)certified method. Blood BLOOD SPECIMEN / Unknown Lab Venipuncture / Unknown 01/29/2019 6:21 AM CDT 01/29/2019 6:47 AM CDT Melisa Meyers MD LAB - CHEMISTRY JOVANNI SEARS [facility] [address] [place] [address] * XR FOOT LEFT 3VW OR MORE [...] osteomyelitis. Dictated by Liam Alcala MD (residential child care counselor). Dr. ANA Skinner have personally reviewed and [...] osteomyelitis. Dictated by Liam Alcala MD (residential child care counselor). Dr. ANA Skinner have personally reviewed and interpreted this examination/study. This report was electronically signed by ANA CARDOSO on 01/30/2019 8:31 AM . Melisa Meyers MD DIAGNOSTIC IMAGING O [place] * CULTURE BLOOD (01/28/2019 3:52 PM CDT) Only the most recent of2 resultswithin the time period is included. Culture No growth day 5 ZIA 02/02/2019 7:30 PM CDT [facility]CROBIOLOG[facility] Blood PERIPHERAL BLOOD / Unknown Venipuncture / Unknown 01/28/2019 3:52 PM CDT 01/28/2019 3:59 PM CDT Melisa Meyers MD LAB - MICROBIOLOGY O RDYARELI Performing Organization Address City/[facility]/ZIP Co de Phone Number [facility] [address] [phone] * (ABNORMAL) C-REACTIVE PROTEIN (01/28/2019 3:51 PM CDT) C-Reactive Protein 14.6(H) <=0.5 mg/dL 01/28/2019 4:24 PM CDT [facility] Blood BLOOD SPECIMEN / Unknown Venipuncture / Unknown 01/28/2019 3:51 PM CDT 01/28/2019 4:00 PM CDT Melisa Meyers MD LAB - CHEMISTRY JOVANNI SEARS [address] [phone] * (ABNORMAL) ERYTHROCYTE SEDIMENTATION RATE (01/28/2019 3:51 PM CDT) Erythrocyte Sedimentation Rate Westergren 113(H) 0 - 20 MM/HR 01/28/2019 4:09 PM CDT [facility] Blood BLOOD SPECIMEN / Unknown Venipuncture / Unknown 01/28/2019 3:51 PM CDT 01/28/2019 3:59 PM CDT Melisa Meyers MD LAB - HEMATOLOGY ORD ERALUKE [facility] [address] [place] [address], [facility] [phone] * LACTIC ACID BLOOD (01/28/2019 3:51 PM CDT) Lactic Acid-Stat 1.4 0.5 - 2.0 mmol/L 01/28/2019 4:13 PM CDT [facility] Blood BLOOD SPECIMEN / Unknown Venipuncture / Unknown 01/28/2019 3:51 PM CDT 01/28/2019 4:00 PM CDT Melisa Meyers MD LAB - CHEMISTRY JOV[facility]NI SEARS Performing Organization Address City/[facility]/ZIP Co de Phone Number [address] [address], [facility] [phone] Care Teams Model Making Supervisor Relationship Specialty Start Date End Date Miguelito Albrecht MD 03 [place] [id number] PCP - General 01/28/19
--- OUTSIDE RECORDS SUMMARY | 2024-08-15 07:13 | XMS_ITS | Encounter Summary ---
Author Organization [facility] Address [address] [place] [id number] Care Team Providers Care School Age Program Teacher Name Role Phone Miguelito Albrecht MD Primary Care Provider Ryley Narvaez MD Unavailable [phone] Encounter Details Date Type Department Care Team (Late st Contact Info) Description 12/22/2018 Abstract [facility] at [address] [phone] Sheela Mtz MA Social History Tobacco Use [...] on filedocumented in this encounter Care Teams School Age Program Teacher Relationship Specialty Start Date End Date Miguelito Albrecht MD [address] [place] [address] PCP - General INTERNAL MEDICINE 12/18/18 Ryley Narvaez MD [id number] [place] [address] EP Doctor Of Audiology CARDIOVASCULAR DISEASE 12/29/18 documented as of this encounter
--- NOTE | 2024-08-15 07:49 | ED_ITS ---
HPI - General Adult General Chief complaint: Unspecified Stated complaint: hematuria, body chills, hyperglycemia Time Seen by Provider: 08/15/24 07:09 History of Present Illness HPI narrative: 58-year-old male presenting to the emergency department for evaluation for rigors, hematuria and hypoglycemia. Patient does have history of diabetes, dementia, history of methamphetamine use, urinary retention, hematuria. Patient was having issues with low blood sugar last night was having some shaking per family. Patient does have history of urinary retention but does take Flomax. At time of evaluation patient denies any pain or complaint. Patient is alert and appropriate at his baseline per family. Related Data Home Medications ?Medication ?Instructions ?Recorded ?Confirmed ?Last Taken ?Type amitriptyline 25 mg tablet 25 mg PO QHS 05/28/24 07/16/24 Unknown History aripiprazole 10 mg tablet 10 mg PO DAILY 05/28/24 07/16/24 Unknown History atorvastatin 40 mg tablet 40 mg PO DAILY 05/28/24 07/16/24 Unknown History duloxetine 30 mg capsule,delayed 30 mg PO DAILY 05/28/24 07/16/24 Unknown History release empagliflozin 25 mg tablet 25 mg PO DAILY 05/28/24 07/16/24 Unknown History (Jardiance) docusate sodium 100 mg capsule 100 mg PO DAILY 07/16/24 07/16/24 Unknown History (Colace) Allergies Allergy/AdvReac Type Severity Reaction Status Date / Time vancomycin AdvReac Other Verified 08/15/24 01:42 Review of Systems 2 Review of Systems: All systems reviewed & are unremarkable except as noted in HPI and below PMFSH Past Medical History Medical History Dementia Amputation toe Burn erythema of left lower leg Left leg swelling Gangrene of right foot Smoking Bacteremia due to Streptococcus pneumoniae (06/2021) With septic left knee and anterior chest abscess. History of MRSA infection Polysubstance abuse Including methamphetamines and marijuana. Diabetic peripheral neuropathy Type 2 diabetes mellitus Hemoglobin A1c was 6.1% on 08/20/2021. Obesity Hypercholesterolemia Tobacco dependence Amphetamine abuse Patient is vague as to how often he uses. Surgical History Surgical History History of incision and drainage (10/04/20) -Complex incision and drainage of right diabetic foot ulcer per Dr. Zhao on 10/04/2020. -Incision and drainage of complicated sternal abscess on 06/26/[address] Ramirez. -Incision and drainage of left knee joint and debridement of right foot 1st ray wound on 06/28/[address] Alvarez. - Extensive incision and drainage of an anterior chest abscess at [facility]. History of carpal tunnel release (~09/07/20) Left-sided per Dr. Escobedo. History of colonoscopy (~10/2008) Negative aside from internal hemorrhoidal tissue per Dr. Damico. Status post debridement (~12/21/19) Excisional debridement of skin, subcutaneous tissue, and muscle of a 4 cm2 ulcer of the plantar surface of the right foot with removal foreign body under fluoroscopy per Dr. Raymundo. Family History Family History Father Hypertension Cerebrovascular accident Other Carcinoma of colon Diabetes mellitus Social History Social History Social History: Surrogate decision maker: Maxwell Webster, spouse. Code status: Full code. Smoking packs per day: 1 Smoking cigarettes per day: 20.0 Years smoked: 20 Smoking pack-years: 20.00 Smoking status: Former smoker Tobacco type: cigarettes Second hand tobacco smoke exposure: No Alcohol intake: former Drinks per week: 5 Alcohol use details: Drinks several alcoholic beverages a month. Substance use: former Substance use type: marijuana and methamphetamine Other substance usage details: Previous history of methamphetamine use. Last use: 2019 Living arrangements: with family Additional living arrangements comments: Lives in [place] with his spouse. Occupation/Education: unemployed Additional occupation/education comments: Unemployed. Spiritual care concerns: No Exam 2 Narrative: APPEARANCE: Comfortable appearing no distress HEAD: normocephalic, atraumatic. EYES: PERRLA/EOMI, conjunctivae clear. NOSE: Normal no drainage EARS:TMS clear with good light reflex. THROAT: Pharynx clear, no exudate. NECK: Supple. No adenopathy, no masses. RESPIRATORY: Airway patent, respirations nonlabored. Clear to auscultation bilaterally, no rales, rhonchi, wheezing. CARDIOVASCULAR: Regular rate and rhythm without murmurs rubs or gallops. ABDOMINAL: Soft, nontender, nondistended, normal bowel sounds MUSCULOSKELETAL: Moves all extremities. Strength/ROM intact, No edema, No calf tenderness. NEURO: Alert. Cranial nerves II through XII intact. Grossly intact SKIN: Warm, dry. Normal Color Course Vital Signs Vital signs: Vital Signs Temperature 98.6 F 08/15/24 01:42 Pulse Rate 124 H 08/15/24 01:42 Respiratory Rate 17 08/15/24 01:42 Blood Pressure 125/70 08/15/24 01:42 Pulse Oximetry 96 08/15/24 01:42 Oxygen Delivery Room Air 08/15/24 01:42 Temperature 97.2 F L 08/15/24 06:19 Pulse Rate 85 08/15/24 10:55 Respiratory Rate 20 08/15/24 10:55 Blood Pressure 118/66 08/15/24 10:55 Pulse Oximetry 99 08/15/24 10:55 Oxygen Delivery Room Air 08/15/24 01:42 Medical Decision Making MDM Narrative Medical decision making narrative: 58-year-old male presents emergency department for evaluation for rigors, hematuria. Patient is currently afebrile with no leukocytosis and hemoglobin of 15.3. No acute abnormalities on the patient's CMP urine was positive for blood white blood cells and +4 bacteria. Patient was negative influenza RSV and for COVID. Suspect patient does have a urinary tract infection. Patient did not have any significant retained urine on the postvoid residual bladder scan. Patient was started on IV Rocephin the emergency department. Patient will be discharged home with Keflex. Patient and family were updated on the results of the workup and they are comfortable the plan for discharge to home. Differential Diagnosis Differential Diagnosis: COVID, RSV, influenza, UTI, urinary retention Vital Signs Vital Signs: Vital Signs Temperature 98.6 F 08/15/24 01:42 Pulse Rate 124 H 08/15/24 01:42 Respiratory Rate 17 08/15/24 01:42 Blood Pressure 125/70 08/15/24 01:42 Pulse Oximetry 96 08/15/24 01:42 Oxygen Delivery Room Air 08/15/24 01:42 Temperature 97.2 F L 08/15/24 06:19 Pulse Rate 85 08/15/24 10:55 Respiratory Rate 20 08/15/24 10:55 Blood Pressure 118/66 08/15/24 10:55 Pulse Oximetry 99 08/15/24 10:55 Oxygen Delivery Room Air 08/15/24 01:42 Lab Data Lab results reviewed: Yes I reviewed the patient's lab results. 08/15/24 07:53 08/15/24 07:53 Labs: Lab Results 08/15/24 08/15/24 08/15/24 Range/Units 01:58 07:50 07:53 WBC 8.6 (4.5-10.0) K/mm3 RBC 5.03 (4.6-6.20) M/mm3 Hgb 15.3 (14.0-18.0) g/dL Hct 46.6 (42.0-52.0) % MCV 92.6 (80-100) fl MCH 30.4 (26-34) pg MCHC 32.8 (32-36) g/dl RDW 12.9 (11.5-14.5) % Plt Count 117 L (150-375) k/mm3 MPV 9.2 (7.4-10.4) fl Immature Gran % (Auto) 0.6 H (0-0.5) % Neut % (Auto) 85.8 H (45.5-73.1) % Lymph % (Auto) 7.6 L (18.3-44.2) % [place] % (Auto) 5.6 (2.6-8.5) % Eos % (Auto) 0.1 (0-4.4) % Baso % (Auto) 0.3 (0.2-1.2) % Lymph # (Auto) 0.65 L (0.9-3.2) K/mm3 [place] # (Auto) 0.5 (0.1-0.6) K/mm3 Eos # (Auto) 0.0 (0-0.3) K/mm3 Baso # (Auto) 0.0 (0.0-0.1) K/mm3 Abs Immat Gran (auto) 0.05 H (0.00-0.031) K/mm3 Absolute Neuts (auto) 7.4 H (1.3-6.7) K/mm3 Absolute Nucleated RBC 0.000 (0.0-0.012) K/mm3 Nucleated RBC % 0.0 (0.0-0.2) % % Immature Plt Fraction 2.0 (0.9-11.2) % Sodium 135 L (137-145) mmol/L Potassium 4.2 (3.4-5.0) mmol/L Chloride 97 L (98-107) mmol/L Carbon Dioxide 28 (22-30) mmol/L Anion Gap 10 (4-12) mmol/L BUN 25 H D (9-20) mg/dL Creatinine 1.07 (0.7-1.3) mg/dL Estim Creat Clear Calc 79 ml/min Estimated GFR > 60 (59 - ) Glucose 185 H (65-110) mg/dL POC Capillary Glucose 152 H 184 H (65-105) mg/dl Calcium 9.3 (8.4-10.2) mg/dL Total Bilirubin 1.3 (0.2-1.3) mg/dL AST 25 (17-59) U/L ALT 30 (6-50) U/L Alkaline Phosphatase 99 (38-126) U/L Total Protein 7.0 (6.3-8.2) g/dL Albumin 4.2 (3.5-5.1) g/dL Urine Color (Yellow) Urine Appearance (Clear) Urine pH (5.0-9.0) Ur Specific [place] (1.001-1.035) Urine Protein (Negative) mg/dL Urine Glucose (UA) (Negative) mg/dL Urine Ketones (Negative) mg/dL Ur Blood (Man) (Negative) Urine Nitrate (Negative) Urine Bilirubin (Negative) Urine Urobilinogen (<2.0) mg/dL Add Ur Microanalysis Leukocyte Esterase Rfl (Negative) DEACON/UL Urine RBC (0-2) /hpf Urine WBC (0-3) /hpf Ur Squamous Epith Cells (Few) /hpf Urine Bacteria /hpf Urine Casts Influenza A (RT-PCR) Negative (Negative) Influenza B (RT-PCR) Negative (Negative) RSV (RT-PCR) Negative (Negative) SARS-CoV-2 RNA (RT-PCR) Negative (Negative) 08/15/24 Range/Units 08:00 WBC (4.5-10.0) K/mm3 RBC (4.6-6.20) M/mm3 Hgb (14.0-18.0) g/dL Hct (42.0-52.0) % MCV (80-100) fl MCH (26-34) pg MCHC (32-36) g/dl RDW (11.5-14.5) % Plt Count (150-375) k/mm3 MPV (7.4-10.4) fl Immature Gran % (Auto) (0-0.5) % Neut % (Auto) (45.5-73.1) % Lymph % (Auto) (18.3-44.2) % Bethel % (Auto) (2.6-8.5) % Eos % (Auto) (0-4.4) % Baso % (Auto) (0.2-1.2) % Lymph # (Auto) (0.9-3.2) K/mm3 [place] # (Auto) (0.1-0.6) K/mm3 Eos # (Auto) (0-0.3) K/mm3 Baso # (Auto) (0.0-0.1) K/mm3 Abs Immat Gran (auto) (0.00-0.031) K/mm3 Absolute Neuts (auto) (1.3-6.7) K/mm3 Absolute Nucleated RBC (0.0-0.012) K/mm3 Nucleated RBC % (0.0-0.2) % % Immature Plt Fraction (0.9-11.2) % Sodium (137-145) mmol/L Potassium (3.4-5.0) mmol/L Chloride (98-107) mmol/L Carbon Dioxide (22-30) mmol/L Anion Gap (4-12) mmol/L BUN (9-20) mg/dL Creatinine (0.7-1.3) mg/dL Estim Creat Clear Calc ml/min Estimated GFR (59 - ) Glucose (65-110) mg/dL POC Capillary Glucose (65-105) mg/dl Calcium (8.4-10.2) mg/dL Total Bilirubin (0.2-1.3) mg/dL AST (17-59) U/L ALT (6-50) U/L Alkaline Phosphatase (38-126) U/L Total Protein (6.3-8.2) g/dL Albumin (3.5-5.1) g/dL Urine Color Yellow (Yellow) Urine Appearance Cloudy H (Clear) Urine pH 5.5 (5.0-9.0) Ur Specific [place] 1.032 (1.001-1.035) Urine Protein 3+ H (Negative) mg/dL Urine Glucose (UA) 3+ H (Negative) mg/dL Urine Ketones Trace H (Negative) mg/dL Ur Blood (Man) 2+ H (Negative) Urine Nitrate Negative (Negative) Urine Bilirubin Negative (Negative) Urine Urobilinogen 1.0 (<2.0) mg/dL Add Ur Microanalysis Reviewed Leukocyte Esterase Rfl Negative (Negative) DEACON/UL Urine RBC 11-20 H (0-2) /hpf Urine WBC 21-50 H (0-3) /hpf Ur Squamous Epith Cells Occasional (Few) /hpf Urine Bacteria 4+ /hpf Urine Casts 11-20 Influenza A (RT-PCR) (Negative) Influenza B (RT-PCR) (Negative) RSV (RT-PCR) (Negative) SARS-CoV-2 RNA (RT-PCR) (Negative) Discharge Plan Discharge Clinical Impression: Hematuria, Acute UTI Patient Disposition: Home, Self-Care Condition: Stable Instructions: Antibiotic Form, Hematuria (ED) Additional Instructions: Antibiotic as directed until completed. Have close follow-up with your primary care physician. If you have any worsening symptoms then please call or return to the emergency department. Patient Language: Nicaraguan Prescriptions: New cephalexin 500 mg capsule 500 mg PO Q8H 7 Days Qty: 21 0RF No Action Jardiance 25 mg tablet 25 mg PO DAILY amitriptyline 25 mg tablet 25 mg PO QHS atorvastatin 40 mg tablet 40 mg PO DAILY aripiprazole 10 mg tablet 10 mg PO DAILY duloxetine 30 mg capsule,delayed release(DR/EC) 30 mg PO DAILY metformin 500 mg tablet 500 mg PO BID Qty: 60 0RF docusate sodium [Colace] 100 mg capsule 100 mg PO DAILY finasteride [Proscar] 5 mg Tablet 5 mg PO QAM Qty: 60 0RF Follow-up/Referrals: Ambrocio,Pradip Farley. [Primary Care Provider] -
[2024-08-15 07:58] LABS: Glucose Point of Care 184 mg/dl (65-105)
[2024-08-15] MEDS: LACTATED RINGERS 1,000 ML 999 ML IV CONT (07:58)
[2024-08-15 08:03] LABS: Basophils Percent Auto 0.3 % (0.2-1.2); Eosinophils Percent Auto 0.1 % (0-4.4); Hematocrit 46.6 % (42.0-52.0); Hemoglobin 15.3 g/dL (14.0-18.0); Immature Granulocyte Absolute 0.05 K/mm3 (0.00-0.031); Immature Granulocyte Percent A 0.6 % (0-0.5); Lymphocytes Absolute Auto 0.65 K/mm3 (0.9-3.2); Lymphocytes Percent Auto 7.6 % (18.3-44.2); Mean Corpuscular HGB Conc 32.8 g/dl (32-36); Mean Corpuscular Hemoglobin 30.4 pg (26-34); Mean Corpuscular Volume 92.6 fl (80-100); Mean Platelet Volume 9.2 fl (7.4-10.4); Monocytes Absolute Auto 0.5 K/mm3 (0.1-0.6); Monocytes Percent Auto 5.6 % (2.6-8.5); Neutrophils Absolute Auto 7.4 K/mm3 (1.3-6.7); Neutrophils Percent Auto 85.8 % (45.5-73.1); Platelet Count Result 117 k/mm3 (150-375); Red Blood Count 5.03 M/mm3 (4.6-6.20); Red Cell Distribution Width 12.9 % (11.5-14.5); White Blood Count 8.6 K/mm3 (4.5-10.0)
[2024-08-15 08:12] LABS: Alanine Aminotransferase 30 U/L (6-50); Albumin Level 4.2 g/dL (3.5-5.1); Alkaline Phosphatase 99 U/L (38-126); Anion Gap 10 mmol/L (4-12); Aspartate Amino Transferase 25 U/L (17-59); Bilirubin,Total 1.3 mg/dL (0.2-1.3); Blood Urea Nitrogen 25 mg/dL (9-20); Calcium 9.3 mg/dL (8.4-10.2); Carbon Dioxide 28 mmol/L (22-30); Chloride 97 mmol/L (98-107); Estimated CRCL calculation 79 ml/min; Estimated Glomerular Filt Rate > 60; Glucose 185 mg/dL (65-110); Potassium 4.2 mmol/L (3.4-5.0); Sodium 135 mmol/L (137-145)
[2024-08-15 08:49] LABS: Influenza A QL RT-PCR Negative (Negative); Influenza B QL RT-PCR Negative (Negative); RSV RNA, RT-PCR Negative (Negative); SARS-CoV-2 RNA PCR Negative (Negative)
[2024-08-15 08:52] LABS: Add Urine Microscopic? YES; Appearance Urine Cloudy (Clear); Bacteria Urine 4+ /hpf; Bilirubin Urine Negative (Negative); Blood Urine 2+ (Negative); Color Urine Yellow (Yellow); Glucose Urine UA 3+ mg/dL (Negative); Ketones Urine Trace mg/dL (Negative); Leukocyte Esterase Ur Negative LEU/UL (Negative); Need Manual Microscopic Reviewed; Nitrate Urine Negative (Negative); Protein Urine 3+ mg/dL (Negative); Specific Grav Ur 1.032 (1.001-1.035); Squamous Epithelial Cell Urine Occasional /hpf (Few); WBC Urine 21-50 /hpf (0-3); pH Urine 5.5 (5.0-9.0)
== END 2024-08-15 10:56 | disposition home or self-care (01) ==
PROVIDERS: Emergency Provider Emergency Medicine; PCP Internal Medicine Infectious Disease
DX: N39.0 Urinary tract infection, site not specified (principal); R31.9 Hematuria, unspecified; Z20.822 Contact with and (suspected) exposure to COVID-19; F03.90 Unspecified dementia, unspecified severity, without behavioral disturbance, psychotic disturbance, mood disturbance, and anxiety; E78.00 Pure hypercholesterolemia, unspecified; E11.42 Type 2 diabetes mellitus with diabetic polyneuropathy; Z86.14 Personal history of Methicillin resistant Staphylococcus aureus infection; Z87.891 Personal history of nicotine dependence; Z89.429 Acquired absence of other toe(s), unspecified side; Z79.84 Long term (current) use of oral hypoglycemic drugs; Z79.899 Other long term (current) drug therapy; R00.0 Tachycardia, unspecified; I45.9 Conduction disorder, unspecified; R94.31 Abnormal electrocardiogram [ECG] [EKG]
CPT/HCPCS: 36415; 80053; 81001; 82948; 85025; 85055; 87086; 87186; 87637; 93005; 96361; 96365; 99284; J0696; J7120